=== PATIENT | female | born 1945 | race Caucasian/White ===

== ENCOUNTER 2019-12-05 07:31 | Outpatient (CLI) | payer MEDICARE, OTHER, MEDICAID, SELFPAY | END 2019-12-05 07:32 | disposition home or self-care (01) | LOC: RAD 07:33 | PROVIDERS: Visit Provider Internal Medicine Critical Care Medicine | DX: J45.909 Unspecified asthma, uncomplicated (principal) | CPT/HCPCS: 94010; 94726; 94729 ==

== ENCOUNTER 2019-12-16 14:51 | Emergency (ER) | payer MEDICARE, OTHER, MEDICAID, SELFPAY ==
[2019-12-16 14:51] VITALS: BP 135/62
[2019-12-16 14:56] VITALS: PULSE 74; RESP 18; TEMP 36.6; O2SAT 95; BMI 37.2
--- NOTE | 2019-12-16 15:05 | XR_ITS ---
WS: [id number] Portable AP upright chest, 12/16/2019 Clinical Data: cp Comparison: Portable chest, 09/28/2018. Findings: No nodules, masses or effusions are seen. The heart is enlarged. The pulmonary vascularity is not increased. No pneumonia or pneumothorax is seen. The aortic arch and descending aorta show tor tuosity. There is a dextroscoliosis. Monitor leads are on the chest wall. XR/XR chest 1V portable [id number] Impression: Cardiomegaly and atherosclerosis.
--- NOTE | 2019-12-16 15:05 | ECG_ITS ---
Measurements Intervals [place] Rate: 60 P: LA: 0 QRS: 58 QRSD: 98 T: 16 QT: 423 QTc: 424 ATRIAL FIBRILLATION WITH ABERRANT CONDUCTION OR VENTRICULAR PREMATURE COMPLEXES MODERATE ST DEPRESSION [0.05+ mV ST DEPRESSION] Compared to ECG 09/28/2018 15:52:47 Ventricular premature complex(es) now present Aberrant conduction of supraventricular beat(s) now present ST (T wave) deviation still present Electronically Signed On 12-16-2019 15:56:08 BARREL LEVELER by Ayaan Herron M.D. [id number]
[2019-12-16 15:19] LABS: Basophils % 0.5 %; Eosinophils # 0.1 10^3/uL (0.0-0.8); Eosinophils % 1.7 %; Hematocrit 43.1 % (37.0-47.0); Hemoglobin 13.9 g/dL (11.5-15.3); Lymphocytes % 36.1 %; Mean Corpuscular HGB Conc 32.3 g/dL (30.0-36.0); Mean Corpuscular Hemoglobin 28.6 pg (28.0-34.0); Mean Corpuscular Volume 88.7 fL (81-99); Mean Platelet Volume 10.3 fL (7.4-10.4); Monocytes # 0.6 10^3/uL (0.2-0.9); Monocytes % 6.9 %; Neutrophils # 4.6 10^3/uL (1.8-7.7); Neutrophils % 54.6 %; Nucleated Red Blood Cells % 0 %; Platelet Count 193 10^3/cmm (130-400); Red Blood Count 4.86 10^6/uL (4.1-5.3); Red Cell Distribution Width 13.6 % (12.1-15.1); White Blood Count 8.3 10^3/uL (4.0-10.0)
--- NOTE | 2019-12-16 15:19 | ED_ITS ---
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) Timing of current episode: constant Prior episodes: Yes Onset: during rest Pain location: substernal Pain radiation: none Severity: mild Quality: sharp Relieving factors: nothing Exacerbating factors: nothing Associated symptoms: Reports other (flushed in face); Deny abdominal pain, dyspnea, fever(s), nausea or vomiting Treatment prior to arrival: none Review of Systems Const: Denies: fever, chills, body aches or change in appetite Eyes: Denies: blurry vision or eye discomfort ENMT: Denies: throat pain or dental pain Card: Reports: chest pain Resp: Denies: shortness of breath GI: Denies: abdominal pain, nausea, vomiting or diarrhea : Denies: painful urination Musc: Denies: neck pain or back pain Skin/Breast: Denies: rash Neuro: Denies: headache Psych: Denies: depression Sarkis/Lymph: Denies: easy bruising All/Imm: Denies: hives PFSH ED PFSH: Statuses (acute, chronic, etc) shown below reflect problem list status as previously entered and may not be historically accurate Medical History (Updated 12/16/19 @ 20:40 by Win Campbell DO) CAD (coronary artery disease) (Acute) DVT (deep venous thrombosis) (Acute) Family History (Updated 12/16/19 @ 16:04 by Dianne Salmeron MD) Other CAD (coronary artery disease) Social History (Updated 12/16/19 @ 16:04 by Dianne Salmeron MD) Smoking and tobacco status: never smoked Alcohol intake: never Physical Exam Const: COMMON NORMALS: no apparent distress, oriented x3 and healthy appearing HENMT: COMMON NORMALS: normocephalic and head/scalp atraumatic HEAD & SCALP: normocephalic and atraumatic Eye: COMMON NORMALS: PERRL and EOMs intact bilaterally PUPIL: Yes PERRL Neck/C-Spine: COMMON NORMALS: full ROM and supple Chest: COMMONS NORMALS: inspection of chest normal and palpation of chest normal Resp: COMMON NORMALS: normal respiratory effort, no retractions, no use of accessory muscles and clear to auscultation bilaterally AUSCULTATION: clear to auscultation bilaterally Cardio: COMMON NORMALS: regular rate, regular rhythm and no murmurs RATE: regular rate RHYTHM: regular rhythm GI: COMMON NORMALS: normal to inspection, nondistended, normoactive bowel sounds, soft to palpation, non-tender and no masses PALPATION: Yes soft Extremity: COMMON NORMALS: normal to inspection and full ROM Neuro: COMMON NORMALS: oriented x3, moves all extremities and no focal motor deficits Psych: COMMON NORMALS: mental status grossly normal, thought process normal and cooperative THOUGHT PROCESS: normal thought process Skin: COMMON NORMALS: no rashes or lesions noted and no wounds GENERAL SKIN EXAM: no rashes or lesions noted Course Vital Signs: Vital signs: Vital Signs Temperature 97.8 F 12/16/19 14:56 Pulse Rate 63 12/16/19 21:53 Respiratory Rate 17 12/16/19 21:53 Blood Pressure 160/59 12/16/19 21:53 Pulse Oximetry 94 12/16/19 21:53 MDM - Chest Pain MDM Narrative: Medical decision making narrative: Patient presents here with chest pain that is atypical in nature. She has been pain-free here and is well- appearing. First troponin is 21 and will check a 2-hour troponin. If it is normal she is likely stable for discharge. She has no signs of pulmonary embolism. Patient's care turned over to Dr. Campbell at this time. Lab Data: Labs: Lab Results 12/16/19 12/16/19 12/16/19 Range/Units 15:11 15:11 15:11 WBC 8.3 (4.0-10.0) 10^3/ uL RBC 4.86 (4.1-5.3) 10^6/u L Hgb 13.9 (11.5-15.3) g/dL Hct 43.1 (37.0-47.0) % MCV 88.7 (81-99) fL MCH 28.6 (28.0-34.0) pg MCHC 32.3 (30.0-36.0) g/dL RDW 13.6 (12.1-15.1) % Plt Count 193 (130-400) 10^3/c mm MPV 10.3 (7.4-10.4) fL Neut % (Auto) 54.6 % Lymph % (Auto) 36.1 % [place] % (Auto) 6.9 % Eos % (Auto) 1.7 % Baso % (Auto) 0.5 % Neut # (Auto) 4.6 (1.8-7.7) 10^3/u L Lymph # (Auto) 3.0 (0.8-4.8) 10^3/u L [place] # (Auto) 0.6 (0.2-0.9) 10^3/u L Eos # (Auto) 0.1 (0.0-0.8) 10^3/u L Baso # (Auto) 0.0 (0.0-0.1) 10^3/u L Nucleated RBC % (a uto) 0 % Nucleated RBCs # 0.0 /100WBC Sodium 143 (136-145) mmol/L Potassium 3.8 (3.5-5.1) mmol/L Chloride 101 (98-107) mmol/L Carbon Dioxide 27 (22-29) mmol/L Anion Gap 19.8 H (5-19) BUN 20 (8-23) mg/dL Creatinine 1.4 H (0.5-0.9) mg/dL Glucose 124 H (74-106) mg/dL Calcium 10.0 (8.5-10.5) mg/dL Total Bilirubin 0.5 (0.15-1.2) mg/dL AST 22 (0-32) U/L ALT 15 (0-33) U/L Alkaline Phosphata se 68 (35-105) IU/L Troponin T Baselin e 21 H (0-10) ng/mL Troponin T 120 [address] [place] (0-10) ng/mL Delta Troponin T (0-10) ABS# Total Protein 7.1 (6.6-8.7) g/dL Albumin 4.5 (3.5-5.2) g/dL Globulin 2.4 (1.3-4.6) g/dL 12/16/19 Range/Units 17:53 WBC (4.0-10.0) 10^3/ uL RBC (4.1-5.3) 10^6/u L Hgb (11.5-15.3) g/dL Hct (37.0-47.0) % MCV (81-99) fL MCH (28.0-34.0) pg MCHC (30.0-36.0) g/dL RDW (12.1-15.1) % Plt Count (130-400) 10^3/c mm MPV (7.4-10.4) fL Neut % (Auto) % Lymph % (Auto) % [place] % (Auto) % Eos % (Auto) % Baso % (Auto) % Neut # (Auto) (1.8-7.7) 10^3/u L Lymph # (Auto) (0.8-4.8) 10^3/u L [place] # (Auto) (0.2-0.9) 10^3/u L Eos # (Auto) (0.0-0.8) 10^3/u L Baso # (Auto) (0.0-0.1) 10^3/u L Nucleated RBC % (a uto) % Nucleated RBCs # /100WBC Sodium (136-145) mmol/L Potassium (3.5-5.1) mmol/L Chloride (98-107) mmol/L Carbon Dioxide (22-29) mmol/L Anion Gap (5-19) BUN (8-23) mg/dL Creatinine (0.5-0.9) mg/dL Glucose (74-106) mg/dL Calcium (8.5-10.5) mg/dL Total Bilirubin (0.15-1.2) mg/dL AST (0-32) U/L ALT (0-33) U/L Alkaline Phosphata se (35-105) IU/L Troponin T Baselin e (0-10) ng/mL Troponin T [address] [place] 21.94 H (0-10) ng/mL Delta Troponin T 0.94 (0-10) ABS# Total Protein (6.6-8.7) g/dL Albumin (3.5-5.2) g/dL Globulin (1.3-4.6) g/dL Imaging Data^: CXR: Radiologist's impression: Signed Patient: Lelia Mcguire I Unit #: [id number] : 1945 Age/Sex: 74 / F ADM Date: 12/16/19 Loc: ER Room/Bed: Attending Dr: Ordering Provider/Ordering MD: Dianne Salmeron MD Date of Service: 12/16/19 Procedure(s): XR chest 1V portable [id number] Accession Number(s): [id number] Report Number: [id number] WS: [id number] Portable AP upright chest, 12/16/2019 Clinical Data: cp Comparison: Portable chest, 09/28/2018. Findings: No nodules, masses or effusions are seen. The heart is enlarged. The pulmonary vascularity is not increased. No pneumonia or pneumothorax is seen. The aortic arch and descending aorta show tortuosity. There is a dextroscoliosis. Monitor leads are on the chest wall. EKG Data^: EKG 1: Attestation: I personally reviewed and interpreted this EKG as follows: EKG interpretation date: 12/16/19 EKG interpretation time: 15:05 Interpretation: afib hr [address] or t wave abnormality EKG 2: Attestation: I personally reviewed and interpreted this EKG as follows: EKG interpretation date: 12/16/19 EKG interpretation time: 16:57 Interpretation: afib hr [address] or t wave abnormalities qrs 90 qtc 428 Discharge Plan Discharge Patient Disposition: Home, Self-Care Clinical Impression: Chest pain Qualifiers: Chest pain type: unspecified Qualified Code(s): R07.9 - Chest pain, unspecified Condition: Stable Prescriptions: No Action potassium chloride 10 mEq tablet extended release 20 meq PO DAILY RF: 0 aspirin 81 mg tablet,delayed release (DR/EC) 81 mg PO DAILY RF: 0 furosemide 20 mg tablet 20 mg PO DAILY RF: 0 ergocalciferol (vitamin D2) 1,250 mcg (50,000 unit) capsule 50,000 unit PO Q7D RF: 0 fluticasone propionate 50 mcg/actuation spray,suspension 1 spray INTRANASAL BID RF: 0 lisinopril 2.5 mg tablet 2.5 mg PO DAILY RF: 0 Oyster Shell Calcium-Vit D3 500 mg(1,250mg) -200 unit tablet 3 tab PO DAILY RF: 0 Symbicort 80-4.5 mcg/actuation HFA aerosol inhaler 2 puff INHALATION BID RF: 0 Xarelto 20 mg tablet 20 mg PO DAILY RF: 0 Discharge Orders: Discharge Order (Routine); Ordered 12/16/19 Ordered By: Win Campbell Referrals: Gato Hernandez [Family Provider] - 4-7 days Discharge Diet: Advance as tolerated Discharge Activity: Resume usual activity and Limit activity as instructed Patient Instructions: Chest Pain (ED) Activity Restrictions/Additional Instructions: Return for repeated episodes or worsening chest pain despite treatment, cough, fever, other concerning symptoms. Discharge Date/Time: 12/16/19 22:02 Coding Level of Care Code ED Radio Control Crane Operator for Chg Fwd Exam Problem Focused Documented by User: Win Campbell DO 12/17/19 01:13 HPI - Chest Pain General: Chief Complaint: Chest Pain Stated Complaint: cp Time Seen by Provider: 12/16/19 15:05 PFSH ED PFSH: Statuses (acute, chronic, etc) shown below reflect problem list status as previously entered and may not be historically accurate Medical History (Updated 12/16/19 @ 20:40 by Win Campbell DO) CAD (coronary artery disease) (Acute) DVT (deep venous thrombosis) (Acute) Family History (Updated 12/16/19 @ 16:04 by Dianne Salmeron MD) Other CAD (coronary artery disease) Social History (Updated 12/16/19 @ 16:04 by Dianne Salmeron MD) Smoking and tobacco status: never smoked Alcohol intake: never Course ED course: 74-year-old lady checked out to me by Dr. Salmeron. She had atypical chest pain, that is essentially resolved. She had no ST changes on her EKGs. She did not change her troponin at 2 hours. She will be allowed home. Vital Signs: Vital signs: Vital Signs Temperature 97.8 F 12/16/19 14:56 Pulse Rate 63 12/16/19 21:53 Respiratory Rate 17 12/16/19 21:53 Blood Pressure 160/59 12/16/19 21:53 Pulse Oximetry 94 12/16/19 21:53 MDM - Chest Pain Lab Data: Labs: Lab Results 12/16/19 12/16/19 12/16/19 Range/Units 15:11 15:11 15:11 WBC 8.3 (4.0-10.0) 10^3/ uL RBC 4.86 (4.1-5.3) 10^6/u L Hgb 13.9 (11.5-15.3) g/dL Hct 43.1 (37.0-47.0) % MCV 88.7 (81-99) fL MCH 28.6 (28.0-34.0) pg MCHC 32.3 (30.0-36.0) g/dL RDW 13.6 (12.1-15.1) % Plt Count 193 (130-400) 10^3/c mm MPV 10.3 (7.4-10.4) fL Neut % (Auto) 54.6 % Lymph % (Auto) 36.1 % [place] % (Auto) 6.9 % Eos % (Auto) 1.7 % Baso % (Auto) 0.5 % Neut # (Auto) 4.6 (1.8-7.7) 10^3/u L Lymph # (Auto) 3.0 (0.8-4.8) 10^3/u L [place] # (Auto) 0.6 (0.2-0.9) 10^3/u L Eos # (Auto) 0.1 (0.0-0.8) 10^3/u L Baso # (Auto) 0.0 (0.0-0.1) 10^3/u L Nucleated RBC % (a uto) 0 % Nucleated RBCs # 0.0 /100WBC Sodium 143 (136-145) mmol/L Potassium 3.8 (3.5-5.1) mmol/L Chloride 101 (98-107) mmol/L Carbon Dioxide 27 (22-29) mmol/L Anion Gap 19.8 H (5-19) BUN 20 (8-23) mg/dL Creatinine 1.4 H (0.5-0.9) mg/dL Glucose 124 H (74-106) mg/dL Calcium 10.0 (8.5-10.5) mg/dL Total Bilirubin 0.5 (0.15-1.2) mg/dL AST 22 (0-32) U/L ALT 15 (0-33) U/L Alkaline Phosphata se 68 (35-105) IU/L Troponin T Baselin e 21 H (0-10) ng/mL Troponin T 120 [address] [place] (0-10) ng/mL Delta Troponin T (0-10) ABS# Total Protein 7.1 (6.6-8.7) g/dL Albumin 4.5 (3.5-5.2) g/dL Globulin 2.4 (1.3-4.6) g/dL 12/16/19 Range/Units 17:53 WBC (4.0-10.0) 10^3/ uL RBC (4.1-5.3) 10^6/u L Hgb (11.5-15.3) g/dL Hct (37.0-47.0) % MCV (81-99) fL MCH (28.0-34.0) pg MCHC (30.0-36.0) g/dL RDW (12.1-15.1) % Plt Count (130-400) 10^3/c mm MPV (7.4-10.4) fL Neut % (Auto) % Lymph % (Auto) % [place] % (Auto) % Eos % (Auto) % Baso % (Auto) % Neut # (Auto) (1.8-7.7) 10^3/u L Lymph # (Auto) (0.8-4.8) 10^3/u L [place] # (Auto) (0.2-0.9) 10^3/u L Eos # (Auto) (0.0-0.8) 10^3/u L Baso # (Auto) (0.0-0.1) 10^3/u L Nucleated RBC % (a uto) % Nucleated RBCs # /100WBC Sodium (136-145) mmol/L Potassium (3.5-5.1) mmol/L Chloride (98-107) mmol/L Carbon Dioxide (22-29) mmol/L Anion Gap (5-19) BUN (8-23) mg/dL Creatinine (0.5-0.9) mg/dL Glucose (74-106) mg/dL Calcium (8.5-10.5) mg/dL Total Bilirubin (0.15-1.2) mg/dL AST (0-32) U/L ALT (0-33) U/L Alkaline Phosphata se (35-105) IU/L Troponin T Baselin e (0-10) ng/mL Troponin T [address] [place] 21.94 H (0-10) ng/mL Delta Troponin T 0.94 (0-10) ABS# Total Protein (6.6-8.7) g/dL Albumin (3.5-5.2) g/dL Globulin (1.3-4.6) g/dL Discharge Plan Discharge Patient Disposition: Home, Self-Care Clinical Impression: Chest pain Qualifiers: Chest pain type: unspecified Qualified Code(s): R07.9 - Chest pain, unspecified Condition: Stable Prescriptions: No Action potassium chloride 10 mEq tablet extended release 20 meq PO DAILY RF: 0 aspirin 81 mg tablet,delayed release (DR/EC) 81 mg PO DAILY RF: 0 furosemide 20 mg tablet 20 mg PO DAILY RF: 0 ergocalciferol (vitamin D2) 1,250 mcg (50,000 unit) capsule 50,000 unit PO Q7D RF: 0 fluticasone propionate 50 mcg/actuation spray,suspension 1 spray INTRANASAL BID RF: 0 lisinopril 2.5 mg tablet 2.5 mg PO DAILY RF: 0 Oyster Shell Calcium-Vit D3 500 mg(1,250mg) -200 unit tablet 3 tab PO DAILY RF: 0 Symbicort 80-4.5 mcg/actuation HFA aerosol inhaler 2 puff INHALATION BID RF: 0 Xarelto 20 mg tablet 20 mg PO DAILY RF: 0 Discharge Orders: Discharge Order (Routine); Ordered 12/16/19 Ordered By: Win Campbell Referrals: Gtao Hernandez [Family Provider] - 4-7 days Discharge Diet: Advance as tolerated Discharge Activity: Resume usual activity and Limit activity as instructed Patient Instructions: Chest Pain (ED) Activity Restrictions/Additional Instructions: Return for repeated episodes or worsening chest pain despite treatment, cough, fever, other concerning symptoms. Discharge Date/Time: 12/16/19 22:02 Coding Level of Care Code ED Radio Control Crane Operator for Chg Fwd Exam Problem Focused The documentation recorded by the Del heath Bridget Annette, accurately reflects the service I personally performed and the decisions made by me, Dianne Salmeron MD Dec 16, 2019 14:51
[2019-12-16 15:44] LABS: Troponin(5th) Baseline 21 ng/mL (0-10)
[2019-12-16] MEDS: aspirin 81 mg Chew Tablet 324 MG PO (15:51)
[2019-12-16 16:03] LABS: Alanine Aminotransferase 15 U/L (0-33); Alkaline Phosphatase 68 IU/L (35-105); Aspartate Amino Transferase 22 U/L (0-32); Blood Urea Nitrogen 20 mg/dL (8-23); Carbon Dioxide 27 mmol/L (22-29); Glucose 124 mg/dL (74-106); Total Bilirubin 0.5 mg/dL (0.15-1.2); Total Protein 7.1 g/dL (6.6-8.7)
[2019-12-16 16:23] LABS: Albumin Level 4.5 g/dL (3.5-5.2); Anion Gap 19.8 (5-19); Chloride 101 mmol/L (98-107); Globulin 2.4 g/dL (1.3-4.6); Potassium 3.8 mmol/L (3.5-5.1); Sodium 143 mmol/L (136-145)
[2019-12-16 18:23] LABS: Troponin 5 2HR 21.94 ng/mL (0-10); Troponin 5 2HR Delta 0.94 ABS# (0-10)
--- NOTE | 2019-12-16 19:04 | PC.NURSE ---
REPORT RECEIVED FROM GABRIELLA SPENCER AND CARE TRANSFERRED TO GABRIELLA VALDEZ
[2019-12-16 19:21] VITALS: BP 150/56; PULSE 73; RESP 18; O2SAT 95
[2019-12-16 19:24] VITALS: PULSE 68; RESP 18; O2SAT 94
[2019-12-16 20:40] VITALS: BP 114/54; PULSE 66; RESP 16; O2SAT 95
--- NOTE | 2019-12-16 20:43 | PC.NURSE ---
PATIENT UPDATED ON THEIR LAB RESULT STATUS BY NURSE
--- NOTE | 2019-12-16 21:05 | ECG_ITS ---
Measurements Intervals [place] Rate: 52 P: WI: 0 QRS: 58 QRSD: 90 T: 29 QT: 448 QTc: 418 ATRIAL FIBRILLATION WITH SLOW VENTRICULAR RESPONSE MODERATE ST DEPRESSION [0.05+ mV ST DEPRESSION] Compared to ECG 12/16/2019 15:05:34 Ventricular premature complex(es) no longer present Aberrant conduction of supraventricular beat(s) no longer present ST (T wave) deviation still present Electronically Signed On 12-17-2019 16:26:10 PULP MILL OPERATOR by Brayden Nguyen M.D. [id number]
[2019-12-16 21:53] VITALS: BP 160/59; PULSE 63; RESP 17; O2SAT 94
== END 2019-12-16 22:02 | disposition home or self-care (01) ==
PROVIDERS: Emergency Medicine; Emergency Provider Emergency Medicine
DX: R07.9 Chest pain, unspecified (principal); Z79.82 Long term (current) use of aspirin; I25.10 Atherosclerotic heart disease of native coronary artery without angina pectoris
CPT/HCPCS: 36415; 71045; 80053; 84484; 85025; 93005; 99283; 99284

== ENCOUNTER 2019-12-27 12:56 | Outpatient (CLI) | payer MEDICARE, OTHER, MEDICAID, SELFPAY ==
[2019-12-27 13:21] VITALS: BP 122/66; PULSE 72; RESP 18; TEMP 36.7; O2SAT 98
[2019-12-27] MEDS: denosumab 60 mg SDV SUBCUT (13:39)
[2019-12-27 14:01] VITALS: BP 119/69; PULSE 56; RESP 18; TEMP 36.8
== END 2019-12-27 12:57 | disposition home or self-care (01) ==
LOC: RHEOACUTE 12:58
DX: M81.0 Age-related osteoporosis without current pathological fracture (principal)
CPT/HCPCS: 96372; J0897

== ENCOUNTER 2020-01-18 14:16 | Outpatient (CLI) | payer MEDICARE, OTHER, MEDICAID, SELFPAY ==
--- NOTE | 2020-01-18 14:43 | XR_ITS ---
WS: [id number] SCREENING DEXA SCAN [place] CLINICAL INFORMATION: AGE RELATED OSTEOPOROSIS WITH CURRENT PATHOLOGICAL FRACTURE COMPARISON: December 29, 2017 FINDINGS: The L1-L4 bone mineral density measures 1.324 g/cm2. This corresponds to a T score score of 1.2 and Z score of 1.9. Left femoral neck bone mineral density measures 0.855 g/cm2. This corresponds to a T score of -1.2 an d Z score of -0.3. Right femoral neck bone mineral density measures 0.951 g/cm2. This corresponds to a T score -0.5of an d Z score of 0.5. Mean femoral neck bone mineral density measures 0.903 g/cm2. This corresponds to a T score of -0.8 an d Z score of 0.1. 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 Patient's FRAX calculated 10 year probability for major osteoporotic fracture i s 8.6 % and osteoporotic hip fracture is 1.0%. Since 2018, bone mineral density in the lumbar spine has increased 5.2% and inc reased 4.5% in the femoral necks.
== END 2020-01-18 14:17 | disposition home or self-care (01) ==
LOC: RADWPI 14:18
DX: M81.0 Age-related osteoporosis without current pathological fracture (principal)
CPT/HCPCS: 77080

== ENCOUNTER 2020-01-18 15:23 | Outpatient (CLI) | payer MEDICARE, OTHER, MEDICAID, SELFPAY ==
--- NOTE | 2020-01-18 | USCV_ITS ---
Lelia Mcguire Age: 74 Gender: F : 1945 Exam Date: 01/18/2020 15:41 Ordering Phys: Ayaan Herron MD ([email or web address]) Technologist: Ritchie Barry Exam Location: [facility] [place] Indication: AI BP: / HR: 84 Rhythm: Sinus Technical Quality: Fair MEASUREMENTS (Male / Female) Normal Values 2D ECHO LV Diastolic Diameter PLAX 5.0 cm 4.2 - 5.9 / 3.9 - 5.3 cm LV Systolic Diameter PLAX 2.4 cm IVS Diastolic Thickness 1.0 cm 0.6 - 1.0 / 0.6 - 0.9 cm IVS Systolic Thickness 1.5 cm LVPW Diastolic Thickness 1.2 cm 0.6 - 1.0 / 0.6 - 0.9 cm LVPW Systolic Thickness 1.5 cm LVOT Diameter 2.0 cm LV Ejection Fraction 2D Teich 82.5 % LV Ejection Fraction MOD 2C 71.8 % LV Ejection Fraction 2C AL 70.8 % LA Diameter 5.1 cm LA Width 4.8 cm LA Height 6.5 cm RA Width 4.1 cm RA Height 5.5 cm Aorta at Sinotubular Diameter 3.4 cm M-MODE LV Diastolic Diameter MM 4.9 cm 4.2 - 5.9 / 3.9 - 5.3 cm LV Systolic Diameter MM 2.2 cm LV Ejection Fraction MM Teich 85.6 % IVS Diastolic Thickness MM 1.1 cm 0.6 - 1.0 / 0.6 - 0.9 cm IVS Systolic Thickness MM 2.0 cm LVPW Diastolic Thickness MM 1.3 cm 0.6 - 1.0 / 0.6 - 0.9 cm LVPW Systolic Thickness MM 1.7 cm RV Diastolic Diameter MM 2.6 cm Aortic Annulus Diameter 2.7 cm LA Ao Ratio MM 1.9 MV E Point Septal Separation 0.8 cm DOPPLER LVOT Peak Velocity 282.0 cm/s MV Area PHT 5.0 cm squared Mitral E to A Ratio 1.8 MV E' Velocity 18.0 cm/s Mitral E to MV E' Ratio 7.2 Mitral E to LV E' Lateral Ratio 6.6 Mitral E to LV E' Septal Ratio 7.8 TR Peak Velocity 379.0 cm/s TR Peak Gradient 57.4 mmHg TV Peak E Velocity 98.0 cm/s Right Atrial Pressure 3.0 mmHg Pulmonary Artery Systolic Pressu 60.5 mmHg FINDINGS Left Ventricle Normal left ventricular size, systolic function and wall thickness, with no regional wall motion abnormalities. Grade I/IV diastolic dysfunction (abnormal relaxation filling pattern), normal to mildly elevated filling pressures. Left ventricular ejection fraction is estimated at 65 %. Right Ventricle Normal right ventricular size and systolic function. Severe pulmonary hypertension, RVSP 60.5 mmHg. Right Atrium Moderately increased right atrial size. Left Atrium Severely increased left atrial size. Mitral Valve Structurally normal mitral valve. Mild mitral valve regurgitation. Aortic Valve Structurally normal trileaflet aortic valve. No aortic valve stenosis. There is 2-3+ or moderate to moderately severe aortic insufficiency. Tricuspid Valve Structurally normal tricuspid valve. [id number]-fl-pusdtonk tricuspid valve regurgitation. Pulmonic Valve Pulmonic valve not well visualized. Pericardium Normal pericardium without effusion. Aorta Normal ascending aorta dimension. CONCLUSIONS Normal left ventricular size, systolic function and wall thickness, with no regional wall motion abnormalities. Grade I/IV diastolic dysfunction (abnormal relaxation filling pattern), normal to mildly elevated filling pressures. Left ventricular ejection fraction is estimated at 65 %. Normal right ventricular size and systolic function. Severe pulmonary hypertension, RVSP 60.5 mmHg. Moderately increased right atrial size. Severely increased left atrial size. Structurally normal mitral valve. Mild mitral valve regurgitation. Structurally normal trileaflet aortic valve. No aortic valve stenosis. There is 2-3+ or moderate to moderately severe aortic insufficiency. There are no prior echocardiogram studies to compare. Dr. Ayaan Herron MD (Electronically Signed) Final Date: 18 January 2020 16:47 S
== END 2020-01-18 15:24 | disposition home or self-care (01) ==
LOC: US 15:24
PROVIDERS: Visit Provider Internal Medicine Cardiovascular Disease
DX: I08.3 Combined rheumatic disorders of mitral, aortic and tricuspid valves (principal); I27.20 Pulmonary hypertension, unspecified
CPT/HCPCS: 93306

== ENCOUNTER 2020-06-19 15:00 | Outpatient (CLI) | payer MEDICARE, OTHER, MEDICAID, SELFPAY ==
--- NOTE | 2020-06-19 15:05 | MM_ITS ---
WS: [id number] SCREENING DIGITAL MAMMOGRAM WITH CAD HISTORY: SCREENING COMPARISON: 05/18/2017 and 05/09/2016 Bilateral CC and MLO views submitted. Computer aided detection analyzed. Breast composition: There are scattered areas of fibroglandular density. No suspicious masses, microc alcifications or architectural distortion. Benign calcifications anterior LEFT breast. MM/[place] [id number] IMPRESSION: BI-RADS: 2-Benign FOLLOW UP: 1 Year Follow-up
== END 2020-06-19 15:01 | disposition home or self-care (01) ==
LOC: RADSHAW 15:04
PROVIDERS: PCP Nurse Practitioner Family; Visit Provider Nurse Practitioner Family
DX: Z12.31 Encounter for screening mammogram for malignant neoplasm of breast (principal)
CPT/HCPCS: 77067

== ENCOUNTER 2020-08-21 07:01 | Outpatient (CLI) | payer MEDICARE, OTHER, MEDICAID, SELFPAY ==
--- NOTE | 2020-08-21 07:08 | USCV_ITS ---
Lelia Mcguire Age: 74 Gender: F : 1945 Exam Date: 08/21/2020 07:10 Ordering Phys: Nhan Perrin M.D ([email or web address]) Technologist: Pearl Huerta Exam Location: [facility] [place] Indication: AVS BP: 155 / 64 HR: 72 Rhythm: Sinus Technical Quality: Adequate MEASUREMENTS (Male / Female) Normal Values 2D ECHO LV Diastolic Diameter PLAX 4.9 cm 4.2 - 5.9 / 3.9 - 5.3 cm LV Systolic Diameter PLAX 2.5 cm LV Chamber Size 4.0 cm IVS Diastolic Thickness 1.5 cm 0.6 - 1.0 / 0.6 - 0.9 cm IVS Systolic Thickness 2.1 cm LVPW Diastolic Thickness 1.7 cm 0.6 - 1.0 / 0.6 - 0.9 cm LVPW Systolic Thickness 2.1 cm RV Chamber Size 2.3 cm LVOT Diameter 2.1 cm LV Ejection Fraction 2D Teich 80.8 % LV Ejection Fraction MOD 2C 65.9 % LV Ejection Fraction 2C AL 65.6 % LA Diameter 3.8 cm LA Width 4.7 cm LA Height 5.9 cm RA Width 3.3 cm RA Height 4.9 cm Aorta at Sinotubular Diameter 2.3 cm M-MODE LV Diastolic Diameter MM 5.8 cm 4.2 - 5.9 / 3.9 - 5.3 cm LV Systolic Diameter MM 3.0 cm LV Ejection Fraction MM Teich 79.2 % IVS Diastolic Thickness MM 0.8 cm 0.6 - 1.0 / 0.6 - 0.9 cm IVS Systolic Thickness MM 1.4 cm LVPW Diastolic Thickness MM 0.9 cm 0.6 - 1.0 / 0.6 - 0.9 cm LVPW Systolic Thickness MM 1.3 cm Aortic Annulus Diameter 2.2 cm LA Ao Ratio MM 2.1 MV E Point Septal Separation 0.3 cm DOPPLER AV Peak Velocity 307.0 cm/s LVOT Peak Velocity 154.0 cm/s AV Area Cont Eq vti 1.8 cm squared AV Area Cont Eq pk 1.7 cm squared MV Area PHT 4.9 cm squared Mitral E to A Ratio 3.8 MV E' Velocity 70.5 cm/s Mitral E to MV E' Ratio 7.0 Mitral E to LV E' Lateral Ratio 7.1 Mitral E to LV E' Septal Ratio 6.9 TR Peak Velocity 275.5 cm/s TR Peak Gradient 30.4 mmHg TV Peak E Velocity 51.0 cm/s Right Atrial Pressure 3.0 mmHg Pulmonary Artery Systolic Pressu 33.4 mmHg PV Peak Velocity 92.0 cm/s RV Acceleration Time 0.1 s RV Ejection Time 0.4 s RV AcT/ET 0.3 FINDINGS Left Ventricle Normal left ventricular size and systolic function. No regional wall motion abnormalities. LV systolic function is 60 to 65%. Mild to moderate left ventricular hypertrophy is noted.. Diastolic function is indeterminate because of atrial fibrillation. Right Ventricle The right ventricle is normal in size and function. Right Atrium The right atrium is enlarged Left Atrium The left atrium is severely enlarged. Mitral Valve Structurally normal mitral valve without significant stenosis or prolapse. There is mild mitral regurgitation. Aortic Valve Structurally normal aortic valve. There is mild aortic stenosis with aortic valve area of 1.87 cm squared with mean gradient across the valve of 14.8 mmHg according to continuity equation. Moderate aortic regurgitation is noted. Tricuspid Valve Structurally normal tricuspid valve without significant stenosis. Mild to moderate tricuspid regurgitation is noted. RVSP is 5 to 50 mmHg. Moderate pulmonary hypertension is noted. Pulmonic Valve Structurally normal pulmonic valve without significant stenosis. There is trace pulmonic regurgitation. Pericardium Normal pericardium without effusion. Aorta Normal ascending aorta dimension. CONCLUSIONS LV systolic function is normal with EF of 60 to 65%. Diastolic function cannot be assessed because of atrial fibrillation. Moderate aortic regurgitation is present. Mild aortic stenosis is noted. Moderate pulmonary hypertension is present. Compared to prior echocardiogram from 01/18/2020, mild aortic stenosis is the only new finding. Otherwise unchanged. Nhan Perrin MD (Electronically Signed) Final Date: 25 August 2020 17:07 S
== END 2020-08-21 07:02 | disposition home or self-care (01) ==
LOC: US 07:02
PROVIDERS: Visit Provider Internal Medicine
DX: I35.0 Nonrheumatic aortic (valve) stenosis (principal); I27.20 Pulmonary hypertension, unspecified
CPT/HCPCS: 93306

== ENCOUNTER 2021-02-12 20:00 | Emergency (ER) | payer MEDICARE, OTHER, MEDICAID, SELFPAY ==
[2021-02-12 20:17] VITALS: BP 194/67; PULSE 66; RESP 16; TEMP 36.1; O2SAT 97; BMI 36.6
--- NOTE | 2021-02-12 22:18 | CTR_ITS ---
PROCEDURE INFORMATION: Exam: CT Abdomen And Pelvis Without Contrast Exam date and time: 02/12/2021 10:20 PM Age: 75 years old Clinical indication: Abdominal pain; Localized; Left; Prior surgery; Surgery type: Tubal; Patient HX: RT sided abd pain. No contrast due to allergy. TECHNIQUE: Imaging protocol: Computed tomography of the abdomen and pelvis without contrast. Total images: 221 Radiation optimization: All CT scans at this facility use at least one of these dose optimization techniques: automated exposure control; mA and/or kV adjustment per patient size (includes targeted exams where dose is matched to clinical indication); or iterative reconstruction. COMPARISON: CT abdomen pelvis wo con [id number] 12/24/2017 10:22 AM RADIATION DOSE METRICS: Total DLP (mGy-cm): 1698.24 FINDINGS: Lungs: Limited assessment of the lung bases fails to reveal evidence for active cardiopulmonary process. Heart: Cardiomegaly. Coronary artery disease. No visible pericardial effusion. Mediastinal space: Small hiatal hernia. Liver: No visible hepatic mass or cystic structure. Gallbladder and bile ducts: Solitary gallstone measuring approximately 25 mm in diameter. Pancreas: Unremarkable for age. No ductal dilation. Spleen: Spleen unremarkable. Adrenal glands: Adrenal glands unremarkable. Kidneys and ureters: No visible hydronephrosis or perinephric fluid. Stable simple cortical cyst equator left kidney. No follow-up recommended. No visible nephrolithiasis or visible ureterolithiasis. Stomach and bowel: Diverticulosis coli without visible evidence for acute diverticulitis. Nonobstructive bowel pattern. No visible adynamic or reactive ileus. Appendix: The appendix is visualized and appears noninflamed. Intraperitoneal space: No visible evidence of mesenteric lymphadenitis or active mesenteritis/panniculitis. No visible pneumoperitoneum or intraperitoneal ascites. Vasculature: The abdominal aorta is nonaneurysmal. Mild arterial sclerotic disease. Lymph nodes: No current visible evidence of active mesenteric or retroperitoneal lymphadenopathy. Urinary bladder: Bladder unremarkable. Reproductive: Multiple calcified uterine leiomyomata. Bones/joints: No visible active or acute osseous pathology. Advanced facet arthrosis. Degenerative disc disease with vacuum disc phenomenon L4/L5. Spondylosis deformans primarily distal thoracic spine. Osteopenia/osteoporosis. 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 Moderate osteoarthritis left period Soft tissues: Small periumbilical ventral hernia containing fat only. Other findings: Obesity. CT/CT abdomen pelvis wo con [id number] IMPRESSION: 1. Currently no visible evidence for acute abdominal or pelvic pathologic process. 2. Cholelithiasis. 3. Diverticulosis coli without visible evidence for acute diverticulitis. Radiation Dose CTDIVOL = (mGy): DLP = 1698.24 (mGy-cm)
--- NOTE | 2021-02-12 22:18 | ECG_ITS ---
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 Measurements Intervals [place] Rate: 62 P: [place]: QRS: 62 QRSD: 92 T: 25 QT: 431 QTc: 440 Interpretive Statements ATRIAL FIBRILLATION MODERATE ST DEPRESSION [0.05+ mV ST DEPRESSION] Compared to ECG 12/16/2019 16:57:20 No significant changes Electronically Signed On 02-13-2021 19:47:13 CDT by Brayden Nguyen M.D. [id number]
--- NOTE | 2021-02-12 22:18 | XR_ITS ---
WS: [id number] Portable AP upright chest, 02/12/2021 Clinical Data: cp Comparison: Mobile chest, 12/16/2019. Findings: No nodules, masses or effusions are seen. The heart is large. The pulmonary vascularity is not increased. No pneumonia or pneumothorax is seen. The aortic arch and descending aorta show tortuo sity. There is a dextroscoliosis. XR/XR chest 1V portable [id number] Impression: Atherosclerosis and cardiomegaly.
--- NOTE | 2021-02-12 22:21 | W.ED.ABDPA2 ---
HPI - Abdominal Pain General: Chief Complaint: Abdominal Pain Stated Complaint: R SIDED ABD PAIN Time Seen by Provider: 02/12/21 21:32 Source: patient Mode of arrival: ambulatory Limitations: no limitations History of Present Illness: HPI narrative: 75-year-old female states she been having right upper quadrant and epigastric bowel pain since about 3. States been a burning sensation and does radiate to her chest. States pain also radiates into her back. She denies any fever. She has had some nausea with no vomiting. She rates her pain a 7 out of 10 currently. She has had no diarrhea. Denies any shortness of breath. MD elicited complaint: abdominal pain Associated Symptoms: Denies chills, dysuria and fever(s) Review of Systems Const: Denies: fever(s), chills, body aches or change in appetite Eyes: Denies: blurry vision or eye discomfort ENMT: Denies: throat pain or dental pain Card: Denies: chest pain Resp: Denies: dyspnea GI: Reports: abdominal pain : Denies: dysuria Musc: Denies: neck pain or back pain Skin/Breast: Denies: rash Neuro: Denies: headache(s) Psych: Denies: depression [place]/Lymph: Denies: easy bruising All/Imm: Denies: urticaria PFSH ED PFSH: Medical History (Updated 02/13/21 @ 02:07 by Dianne Salmeron MD) Anticoagulation adequate with anticoagulant therapy Xarelto Aortic insufficiency with aortic stenosis CAD (coronary artery disease) COPD (chronic obstructive pulmonary disease) DVT (deep venous thrombosis) Obesity Pulmonary arterial hypertension Sleep apnea Family History Other CAD (coronary artery disease) Social History Smoking and tobacco status: never smoked Second hand smoke exposure: No Smoking risk assessment/counseling performed?: No Alcohol intake: never Desire information about alcohol rehabilitation?: No Counseling given: No Desire information about substance/drug rehabilitation?: No Counseling given: No Lives independently: Yes Household members: none Marital status: / Current occupational status: retired History of recent travel: No Current gender identity: Female Physical Exam Const: COMMON NORMALS: no acute distress, patient oriented x3 and healthy appearing HENMT: COMMON NORMALS: normocephalic and atraumatic HEAD & SCALP: normocephalic and atraumatic Eye: COMMON NORMALS: Equal, round and reactive pupils present and EOMs intact bilaterally PUPIL: Yes Equal, round and reactive pupils present Neck/C-Spine: COMMON NORMALS: full ROM and supple Chest: COMMONS NORMALS: normal inspection of the chest and normal palpation of entire chest wall Resp: COMMON NORMALS: normal respiratory effort, No retractions, No use of accessory muscles and clear to auscultation bilaterally AUSCULTATION: clear to auscultation bilaterally Cardio: COMMON NORMALS: regular rate, regular rhythm and No murmurs present (Cardio) RATE: regular rate RHYTHM: regular rhythm GI: COMMON NORMALS: Normal to inspection, nondistended, normoactive bowel sounds present, Soft to palpation and no masses PALPATION: Yes Soft to palpation and Yes Tenderness to palpation present (GI) Details: RUQ Extremity: COMMON NORMALS: normal to inspection and full ROM Neuro: COMMON NORMALS: patient oriented x3, moves all extremities and no focal motor deficits Psych: COMMON NORMALS: mental status grossly normal, Normal thought process present and cooperative THOUGHT PROCESS: Normal thought process present Skin: COMMON NORMALS: no rashes or lesions noted and no wounds GENERAL SKIN EXAM: no rashes or lesions noted Course Vital Signs: Vital signs: Vital Signs Temperature 96.9 F L 02/12/21 20:17 Pulse Rate 66 02/12/21 20:17 Respiratory Rate 20 H 02/12/21 23:56 Blood Pressure 194/67 02/12/21 20:17 Pulse Oximetry 97 02/12/21 20:17 MDM - Abdominal Pain MDM Narrative: Medical decision making narrative: Patient presents with abdominal pain consistent with likely biliary colic. Patient does have gallstones on CT. No signs of acute cholecystitis. Patient's blood work here is all normal. Patient has no signs of acute coronary syndrome. Patient's been pain-free here and abdominal exam at discharge is benign. She is to follow-up with surgery and is to return if worsening. She understands agrees to plan. Lab Data: Labs: Lab Results 02/12/21 02/12/21 02/12/21 Range/Units 23:27 23:27 23:27 WBC 8.4 (4.0-10.0) 10^3/ uL RBC 4.68 (4.1-5.3) 10^6/u L Hgb 13.8 (11.5-15.3) g/dL Hct 42.2 (37.0-47.0) % MCV 90.2 (81-99) fL MCH 29.5 (28.0-34.0) pg MCHC 32.7 (30.0-36.0) g/dL RDW 14.0 (12.1-15.1) % Plt Count 162 (130-400) 10^3/c mm MPV 10.1 (7.4-10.4) fL Neut % (Auto) 79.3 % Lymph % (Auto) 14.0 % [place] % (Auto) 5.3 % Eos % (Auto) 0.5 % Baso % (Auto) 0.5 % Neut # (Auto) 6.70 (1.8-7.7) 10^3/u L Lymph # (Auto) 1.2 (0.8-4.8) 10^3/u L [place] # (Auto) 0.5 (0.2-0.9) 10^3/u L Eos # (Auto) 0.0 (0.0-0.8) 10^3/u L Baso # (Auto) 0.0 (0.0-0.1) 10^3/u L Nucleated RBC % (a uto) 0 % Nucleated RBCs # 0.0 /100WBC Sodium 136 (136-145) mmol/L Potassium 4.1 (3.5-5.1) mmol/L Chloride 99 (98-107) mmol/L Carbon Dioxide 27 (22-29) mmol/L Anion Gap 14.1 (5-19) BUN 18 (8-23) mg/dL Creatinine 0.7 (0.5-0.9) mg/dL GFR Calculation Not Reportable Glucose 137 H (65-115) mg/dL Calculated Osmolal ity 286 (285-295) mOsm/k g Calcium 9.2 (8.5-10.5) mg/dL Total Bilirubin 1.2 (0.15-1.2) mg/dL AST 326 H (0-32) U/L ALT 179 H (0-33) U/L Alkaline Phosphata se 73 (35-105) IU/L Troponin T Baselin e 16 H (0-10) ng/L Troponin T 120 Min [place] (0-10) ng/L Delta Troponin T (0-10) ABS# Total Protein 6.8 (6.6-8.7) g/dL Albumin 4.0 (3.5-5.2) g/dL Globulin 2.8 (1.3-4.6) g/dL Lipase 19 (13-60) U/L 02/13/ Range/Units 01:34 WBC (4.0-10.0) 10^3/ uL RBC (4.1-5.3) 10^6/u L Hgb (11.5-15.3) g/dL Hct (37.0-47.0) % MCV (81-99) fL MCH (28.0-34.0) pg MCHC (30.0-36.0) g/dL RDW (12.1-15.1) % Plt Count (130-400) 10^3/c mm MPV (7.4-10.4) fL Neut % (Auto) % Lymph % (Auto) % [place] % (Auto) % Eos % (Auto) % Baso % (Auto) % Neut # (Auto) (1.8-7.7) 10^3/u L Lymph # (Auto) (0.8-4.8) 10^3/u L [place] # (Auto) (0.2-0.9) 10^3/u L Eos # (Auto) (0.0-0.8) 10^3/u L Baso # (Auto) (0.0-0.1) 10^3/u L Nucleated RBC % (a uto) % Nucleated RBCs # /100WBC Sodium (136-145) mmol/L Potassium (3.5-5.1) mmol/L Chloride (98-107) mmol/L Carbon Dioxide (22-29) mmol/L Anion Gap (5-19) BUN (8-23) mg/dL Creatinine (0.5-0.9) mg/dL GFR Calculation Glucose (65-115) mg/dL Calculated Osmolal ity (285-295) mOsm/k g Calcium (8.5-10.5) mg/dL Total Bilirubin (0.15-1.2) mg/dL AST (0-32) U/L ALT (0-33) U/L Alkaline Phosphata se (35-105) IU/L Troponin T Baselin e (0-10) ng/L Troponin T 120 Min [place] 14.99 H (0-10) ng/L Delta Troponin T -1.01 L (0-10) ABS# Total Protein (6.6-8.7) g/dL Albumin (3.5-5.2) g/dL Globulin (1.3-4.6) g/dL Lipase (13-60) U/L Imaging Data ^: CXR: Attestation: I personally reviewed and interpreted this imaging study as follows: My impression: No acute abnormality CT Abd/Pel: Radiologist's impression: [id number] [address] [address] Scan Report Signed Patient: Lelia Mcguire I Unit #: [id number] : 1945 Age/Sex: 75 / F ADM Date: 02/12/21 Loc: ER Room/Bed: Attending Dr: Ordering Provider/Ordering MD: Dianne Salmeron MD Date of Service: 02/12/21 Procedure(s): CT abdomen pelvis con [id number] Accession Number(s): [id number] Report Number: [id number] PROCEDURE INFORMATION: Exam: CT Abdomen And Pelvis Without Contrast Exam date and time: 02/12/2021 10:20 PM Age: 75 years old Clinical indication: Abdominal pain; Localized; Left; Prior surgery; Surgery type: Tubal; Patient HX: RT sided abd pain. No contrast due to allergy. TECHNIQUE: Imaging protocol: Computed tomography of the abdomen and pelvis without contrast. Total images: 221 Radiation optimization: All CT scans at this facility use at least one of these dose optimization techniques: automated exposure control; mA and/or kV adjustment per patient size (includes targeted exams where dose is matched to clinical indication); or iterative reconstruction. COMPARISON: CT abdomen pelvis con [id number] 12/24/2017 10:22 AM RADIATION DOSE METRICS: Total DLP (mGy-cm): 1698.24 FINDINGS: Lungs: Limited assessment of the lung bases fails to reveal evidence for active cardiopulmonary process. Heart: Cardiomegaly. Coronary artery disease. No visible pericardial effusion. Mediastinal space: Small hiatal hernia. Liver: No visible hepatic mass or cystic structure. Gallbladder and bile ducts: Solitary gallstone measuring approximately 25 mm in diameter. Pancreas: Unremarkable for age. No ductal dilation. Spleen: Spleen unremarkable. Adrenal glands: Adrenal glands unremarkable. Kidneys and ureters: No visible hydronephrosis or perinephric fluid. Stable simple cortical cyst equator left kidney. No follow-up recommended. No visible nephrolithiasis or visible ureterolithiasis. Stomach and bowel: Diverticulosis coli without visible evidence for acute diverticulitis. Nonobstructive bowel pattern. No visible adynamic or reactive ileus. Appendix: The appendix is visualized and appears noninflamed. Intraperitoneal space: No visible evidence of mesenteric lymphadenitis or active mesenteritis/panniculitis. No visible pneumoperitoneum or intraperitoneal ascites. Vasculature: The abdominal aorta is nonaneurysmal. Mild arterial sclerotic disease. Lymph nodes: No current visible evidence of active mesenteric or retroperitoneal lymphadenopathy. Urinary bladder: Bladder unremarkable. Reproductive: Multiple calcified uterine leiomyomata. Bones/joints: No visible active or acute osseous pathology. Advanced facet arthrosis. Degenerative disc disease with vacuum disc phenomenon L4/L5. Spondylosis deformans primarily distal thoracic spine. Osteopenia/osteoporosis. 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 Moderate osteoarthritis left period Soft tissues: Small periumbilical ventral hernia containing fat only. Other findings: Obesity. CT/CT abdomen pelvis wo con [id number] IMPRESSION: 1. Currently no visible evidence for acute abdominal or pelvic pathologic process. 2. Cholelithiasis. 3. Diverticulosis coli without visible evidence for acute diverticulitis. EKG Data ^: EKG 1: Attestation: I personally reviewed and interpreted this EKG as follows: EKG interpretation date: 02/13/21 EKG interpretation time: 00:14 Interpretation: agib hr [address] or t wave abnormalities qrs 92 qtc 437 Discharge Plan Discharge Patient Disposition: Home Clinical Impression: Abdominal pain Qualifiers: Abdominal location: right upper quadrant Qualified Code(s): R10.11 - Right upper quadrant pain Gallstone Qualifiers: Cholecystitis presence: without cholecystitis Biliary obstruction: without biliary obstruction Qualified Code(s): K80.20 - Calculus of gallbladder without cholecystitis without obstruction Condition: Stable Prescriptions: New hydrocodone-acetaminophen 5-325 mg tablet 1 tab PO Q6H PRN (Reason: pain) Qty: 14 RF: 0 ondansetron 4 mg tablet,disintegrating 4 mg PO Q6H PRN (Reason: nausea and vomiting) Qty: 14 RF: 0 No Action nitroglycerin 0.4 mg tablet, sublingual 0.4 mg SUBLINGUAL Q5M PRN (Reason: chest pain) Qty: 25 RF: 2 albuterol sulfate 90 mcg/actuation HFA aerosol inhaler 1 puff INHALATION QID PRN (Reason: shortness of breath or wheezing) 180 Days Qty: 18 RF: 6 potassium chloride 10 mEq tablet extended release 20 meq PO DAILY RF: 0 furosemide 20 mg tablet 20 mg PO DAILY RF: 0 ergocalciferol (vitamin D2) 1,250 mcg (50,000 unit) capsule 50,000 unit PO Q7D RF: 0 fluticasone propionate 50 mcg/actuation spray,suspension 1 spray INTRANASAL BID RF: 0 lisinopril 2.5 mg tablet 2.5 mg PO DAILY RF: 0 Oyster Shell Calcium-Vit D3 500 mg(1,250mg) -200 unit tablet 3 tab PO DAILY RF: 0 Xarelto 20 mg tablet 20 mg PO DAILY RF: 0 Discharge Orders: Discharge ED (Routine); Ordered 02/13/21 Ordered By: Dianne Salmeron Referrals: Jey Larios MD [Physician] - 1-3 days Gato Hernandez [Primary Care Provider] - Discharge Diet: Advance as tolerated Discharge Activity: Resume usual activity Patient Instructions: Abdominal Pain (ED), Opioid Safety Coding Level of Care Code ED Blast Furnace Blower for Chg Fwd Exam Comprehensive
[2021-02-12 23:32] LABS: Basophils % 0.5 %; Eosinophils % 0.5 %; Hematocrit 42.2 % (37.0-47.0); Hemoglobin 13.8 g/dL (11.5-15.3); Lymphocytes # 1.2 10^3/uL (0.8-4.8); Mean Corpuscular HGB Conc 32.7 g/dL (30.0-36.0); Mean Corpuscular Hemoglobin 29.5 pg (28.0-34.0); Mean Corpuscular Volume 90.2 fL (81-99); Mean Platelet Volume 10.1 fL (7.4-10.4); Monocytes # 0.5 10^3/uL (0.2-0.9); Monocytes % 5.3 %; Neutrophils % 79.3 %; Nucleated Red Blood Cells % 0 %; Platelet Count 162 10^3/cmm (130-400); Red Blood Count 4.68 10^6/uL (4.1-5.3); White Blood Count 8.4 10^3/uL (4.0-10.0)
[2021-02-12 23:52] LABS: Alanine Aminotransferase 179 U/L (0-33); Alkaline Phosphatase 73 IU/L (35-105); Anion Gap 14.1 (5-19); Aspartate Amino Transferase 326 U/L (0-32); Blood Urea Nitrogen 18 mg/dL (8-23); Calcium 9.2 mg/dL (8.5-10.5); Carbon Dioxide 27 mmol/L (22-29); Chloride 99 mmol/L (98-107); Globulin 2.8 g/dL (1.3-4.6); Glucose 137 mg/dL (65-115); Lipase 19 U/L (13-60); Osmolality Calculated 286 mOsm/kg (285-295); Potassium 4.1 mmol/L (3.5-5.1); Sodium 136 mmol/L (136-145); Total Bilirubin 1.2 mg/dL (0.15-1.2); Total Protein 6.8 g/dL (6.6-8.7)
[2021-02-12 23:53] LABS: Troponin(5th) Baseline 16 ng/L (0-10)
[2021-02-12 23:56] VITALS: RESP 20
[2021-02-12] MEDS: ondansetron 2 mg/ML SDV 2 mL 4 MG IVP (23:56)
[2021-02-12] MEDS: morphine 4 mg/mL SDV 1 mL IVP (23:56)
--- NOTE | 2021-02-13 00:18 | ECG_ITS ---
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 Measurements Intervals [place] Rate: 47 P: [place]: QRS: 69 QRSD: 90 T: 28 QT: 453 QTc: 401 Interpretive Statements ATRIAL FIBRILLATION WITH SLOW VENTRICULAR RESPONSE MODERATE ST DEPRESSION [0.05+ mV ST DEPRESSION] Compared to ECG 02/13/2021 00:14:02 No significant changes Electronically Signed On 02-13-2021 19:52:31 CDT by Brayden Nguyen M.D. [id number]
[2021-02-13 02:00] LABS: Troponin 5 2HR 14.99 ng/L (0-10)
[2021-02-13 02:01] LABS: Troponin 5 2HR Delta -1.01 ABS# (0-10)
[2021-02-13 02:21] VITALS: BP 159/84; PULSE 61; RESP 20; O2SAT 98
--- NOTE | 2021-02-13 11:10 | DCPLANNER ---
clinical research manager had message to schedule a follow up appointment for patient with general surgery for gallstones. clinical research manager emailed patients information to both Sugey and Ana Lilia at [facility] General Surgery. Patients information will be printed and reviewed. Clinic will call patient with appointment information.
--- NOTE | 2021-02-14 08:16 | DCPLANNER ---
Patient has a follow up appointment scheduled for Thursday, February 18, 2021 at 2:[address] Larios at [facility] General Surgery. Clinic will call patient with appointment information.
--- NOTE | 2021-02-22 14:19 | DCPLANNER ---
Patient had a follow up appointment scheduled for 02.18.[address] Larios at [facility] General Surgery - patient did attend appointment.
== END 2021-02-13 02:43 | disposition home or self-care (01) ==
PROVIDERS: Emergency Provider Emergency Medicine
DX: K80.20 Calculus of gallbladder without cholecystitis without obstruction (principal); R10.11 Right upper quadrant pain; I25.10 Atherosclerotic heart disease of native coronary artery without angina pectoris; J44.9 Chronic obstructive pulmonary disease, unspecified
CPT/HCPCS: 36415; 71045; 74176; 80053; 83690; 84484; 85025; 93005; 96374; 96375; 99284; J2270; J2405

== ENCOUNTER 2021-02-20 13:01 | Outpatient (CLI) | payer MEDICARE, OTHER, MEDICAID, SELFPAY ==
--- NOTE | 2021-02-20 13:30 | USCV_ITS ---
Lelia Mcguire Age: 75 Gender: F : 1945 Exam Date: 02/20/2021 13:33 Ordering Phys: Nhan Perrin M.D ([email or web address]) Technologist: Pearl Huerta Exam Location: [facility] – [place] Indication: AORTIC STENOSIS BP: / HR: 69 Rhythm: Sinus Technical Quality: Adequate MEASUREMENTS (Male / Female) Normal Values 2D ECHO LV Diastolic Diameter PLAX 4.1 cm 4.2 - 5.9 / 3.9 - 5.3 cm LV Systolic Diameter PLAX 2.5 cm LV Chamber Size 3.8 cm IVS Diastolic Thickness 1.4 cm 0.6 - 1.0 / 0.6 - 0.9 cm IVS Systolic Thickness 1.6 cm LVPW Diastolic Thickness 2.1 cm 0.6 - 1.0 / 0.6 - 0.9 cm LVPW Systolic Thickness 2.4 cm RV Chamber Size 2.5 cm LVOT Diameter 2.0 cm LV Ejection Fraction 2D Teich 70.2 % LV Ejection Fraction MOD 2C 67.9 % LV Ejection Fraction 2C AL 67.6 % LA Diameter 4.4 cm LA Width 3.6 cm LA Height 5.4 cm RA Width 3.6 cm RA Height 5.8 cm M-MODE LV Diastolic Diameter MM 5.4 cm 4.2 - 5.9 / 3.9 - 5.3 cm LV Systolic Diameter MM 2.6 cm LV Ejection Fraction MM Teich 83.2 % IVS Diastolic Thickness MM 0.8 cm 0.6 - 1.0 / 0.6 - 0.9 cm IVS Systolic Thickness MM 1.3 cm LVPW Diastolic Thickness MM 0.9 cm 0.6 - 1.0 / 0.6 - 0.9 cm LVPW Systolic Thickness MM 1.4 cm Aortic Annulus Diameter 2.2 cm LA Ao Ratio MM 2.2 MV E Point Septal Separation 0.6 cm DOPPLER AV Peak Velocity 334.0 cm/s LVOT Peak Velocity 208.0 cm/s AV Area Cont Eq vti 1.8 cm squared AV Area Cont Eq pk 2.0 cm squared MV Area PHT 4.5 cm squared Mitral E to A Ratio 1.7 MV E' Velocity 68.0 cm/s Mitral E to MV E' Ratio 6.9 Mitral E to LV E' Lateral Ratio 6.5 Mitral E to LV E' Septal Ratio 7.3 TR Peak Velocity 334.3 cm/s TR Peak Gradient 44.7 mmHg TV Peak E Velocity 57.0 cm/s Right Atrial Pressure 3.0 mmHg Pulmonary Artery Systolic Pressu 47.7 mmHg PV Peak Velocity 106.0 cm/s RV Acceleration Time 0.2 s RV Ejection Time 0.4 s RV AcT/ET 0.5 FINDINGS Left Ventricle Normal left ventricular size. LV systolic function is normal with EF of 60-65%. No regional wall motion abnormalities. Diastolic function is indeterminate because of atrial fibrillation Right Ventricle The right ventricle is normal in size and function. Right Atrium The right atrium is enlarged Left Atrium The left atrium is severely enlarged Mitral Valve Structurally normal mitral valve without significant stenosis or prolapse. There is trace mitral regurgitation. Aortic Valve Structurally normal aortic valve. Moderate aortic stenosis is noted. By continuity equation, aortic valve area is 1.8 cm squared with mean gradient across the valve of 23 mmHg. There is mild to moderate aortic regurgitation. Tricuspid Valve Structurally normal tricuspid valve without significant stenosis or regurgitation. Mild to moderate tricuspid regurgitation. RVSP is 45-50mmHg. This is consistent with moderate pulmonary hypertension Pulmonic Valve Structurally normal pulmonic valve without significant stenosis. There is no pulmonic regurgitation. Pericardium Normal pericardium without effusion. Aorta Normal ascending aorta dimension. CONCLUSIONS LV systolic function is normal with EF of 60-65% Diastolic function is indeterminate because of atrial fibrillation Biatrial enlargement Moderate aortic stenosis is noted. By continuity equation, PATRICK is 1.8cm2 and mean gradient across the aortic valve of 23mmHg Mild to moderate aortic regurgitation is noted Mild to moderate tricuspid regurgitation Moderate pulmonary hypertension is seen Compared to prior echocardiogram from 08/21/20 , aortic stenosis has progressed slightly and is moderate now. Will recommend continuing to monitor with 6 monthly echos Nhan Perrin MD (Electronically Signed) Final Date: 03 March 2021 14:10 S
== END 2021-02-20 13:02 | disposition home or self-care (01) ==
LOC: US 13:02
PROVIDERS: Visit Provider Internal Medicine
DX: I08.2 Rheumatic disorders of both aortic and tricuspid valves; I27.20 Pulmonary hypertension, unspecified
CPT/HCPCS: 93306

== ENCOUNTER → 2021-03-01 11:11 | Outpatient (BNVA) | payer MEDICARE, OTHER, MEDICAID, SELFPAY | PROVIDERS: Visit Provider Surgery | DX: Z01.812 Encounter for preprocedural laboratory examination (principal); Z20.822 Contact with and (suspected) exposure to COVID-19 | CPT/HCPCS: 87635 ==

== ENCOUNTER 2021-03-06 05:43 | Day surgery (SDC) | payer MEDICARE, OTHER, MEDICAID, SELFPAY ==
[2021-03-05 14:49] VITALS: BMI 36.6
[2021-03-06] VITALS (11 sets, daily range): BP systolic 85–167; BP diastolic 52–77; PULSE 52–70; RESP 10–20; TEMP 36.1–36.8; O2SAT 94–100
[2021-03-06] MEDS: sodium chloride 0.9% 1,000 ML 30 ML IV (06:28)
--- NOTE | 2021-03-06 06:46 | ANES.PREANE2 ---
Pre-Anesthetic Assessment Pre-Anesthetic Assessment: Height/Weight: Height 1.65 m Weight 99.79 kg Temp Pulse Resp BP Pulse Ox 98.3 F 70 18 165/68 95 03/06/21 06:23 03/06/21 06:23 03/06/21 06:23 03/06/21 06:23 03/06/21 06:23 Preop Diagnosis: Cholelithiasis Proposed Procedure: Operation Date: 03/06/21 07:00 Proposed Procedures p Laparoscopic possible open Cholecystectomy 11110 k80.20(Not Applicable) - Jey Larios MD Was Beta Perez taken within 24 hours: Yes Was Clonidine taken within 24 hours: N/A Last intake: Intake Last Liquid Date 03/05/21 Last Liquid Time 23:00 Last Solid Date 03/05/21 Last Solid Time 20:00 Social: Social History: No alcohol and No tobacco Exam: Pre-Anes Outpt Exam: alert, oriented x 3 and clear to auscultation bilaterally Airway: Submandibular: WNL Cervical ROM: WNL MP: 2 Dentition: Loose Additional comments: Poor dentition Pulmonary: Pulmonary: COPD and Sleep apnea CV/HEM: CV/HEM: Afib, HTN and Murmur Comments: H/O /AI and PHTN (60mmHg), EF maintained approx. 60%, describes herself as an easy bleeder (before Xeralto) Metabolic: Metabolic: Morbid obesity Musc/skel: Comments: Poor functional status b/c of joint pain Anesthetic Plan: ASA status: 3 Anesthesia: General Risk of > 500 ml blood loss (7ml/kg in children): No Meds/Allergies Current Medications: Current Medications Generic Name Dose Route Start Last Admin Trade Name Freq PRN Reason Stop Dose Admin Sodium Chloride 1,000 mls @ 30 ml s/hr 03/06/21 06:00 03/06/21 06:28 Sodium Chloride 0.9% IV 03/07/21 05:59 30 mls/hr .Q24H RAPHAEL Administration PFSH Anesthesia PFSH: Medical History Aortic insufficiency with aortic stenosis Atrial fibrillation CAD (coronary artery disease) COPD (chronic obstructive pulmonary disease) DVT (deep venous thrombosis) Pulmonary arterial hypertension Sleep apnea Surgical History H/O left knee surgery H/O right knee surgery H/O tubal ligation History of colonoscopy with polypectomy 2017 History of esophagogastroduodenoscopy (EGD) Family History Other CAD (coronary artery disease) Social History Smoking and tobacco status: never smoked Second hand smoke exposure: No Smoking risk assessment/counseling performed?: No Alcohol intake: never Desire information about alcohol rehabilitation?: No Counseling given: No Desire information about substance/drug rehabilitation?: No Counseling given: No Lives independently: Yes Household members: none Marital status: / Current occupational status: retired History of recent travel: No Current gender identity: Female Data Anesthesia Cardiac Studies: No Data to Display
--- NOTE | 2021-03-06 06:48 | W.PM.OPSUD ---
Surgery/Procedure H&P Update DATE OF PROCEDURE: March 06, 2021 DATE H&P PERFORMED: 02/18/21 H&P UPDATE INFORMATION: I have reviewed H&P completed within last 30 days, I have examined patient prior to procedure and No changes to prior documentation PREOP DIAGNOSIS: Cholelithiasis PLANNED PROCEDURE: Operation Date: 03/06/21 07:00 Proposed Procedures p Laparoscopic possible open Cholecystectomy 90107 k80.20(Not Applicable) - Jey Larios MD
--- NOTE | 2021-03-06 08:00 | P.OP_ITS ---
Operative Report Date of procedure: March 06, 2021 Pre-op Diagnosis: Cholelithiasis Post-op Diagnosis: 1. Cholelithiasis 2. Incarcerated umbilical hernia containing omentum Procedure Done: 1. Laparoscopic cholecystectomy 2. Open repair of umbilical hernia Specimens removed/disposition: Gallbladder Surgeon: Jey Larios Anesthesia: General Condition: stable Disposition: PACU Procedure: The patient was taken to the operating room and was intubated under general anesthesia. After the antibiotic had been administered, the abdomen was prepped and draped in a sterile manner. Using a #15 blade, a 1 centimeter infraumbilical curvilinear incision was made, the incarcerated umbilical hernia containing omentum was dissected, excised and the peritoneal cavity was entered. A 10 millimeter port was placed and 15 millimeters of pneumoperitoneum was created. A 10 millimeter, 30 degrees scope was introduced. Three 5 millimeter ports were placed in the epigastric, midclavicular and the anterior axillary line two fingerbreadths below the costal margin on the right side under the direct visualization. Ratcheted forceps were introduced into the lateral most port and was used to retract the fundus of the gallbladder cephalad and using forceps the infundibulum of the gallbladder was retracted laterally. Using L- hook cautery the peritoneum overlying the Calot's triangle was opened medially and laterally until the cystic duct and the cystic artery were skeletonized. Dissection was carried along the body of the gallbladder and after ensuring critical view of safety, 4 clips applied on the cystic duct and 3 clips applied on the cystic artery and cut leaving, 3 clips on the remaining portion of the duct and 2 clips on the remaining portion of the artery. The rest of the gallbladder was dissected off the liver using L-hook cautery. There was no bleeding or bile leaking noted from the gallbladder fossa and the clips appeared to be in place. An EndoCatch bag was introduced to remove the gallbladder. All the ports were removed under direct visualization and there was no bleeding noted from the port sites. The fascia of the umbilicus was closed using [id number] 0 Vicryl sutures and the subcutaneous tissue was approximated using 3-0 Vicryl sutures. The skin at all four ports were closed using 4-0 Monocryl and Dermabond. A total of 10 millimeters of 0.5% Marcaine was infiltrated around the port sites. The patient was stable throughout the procedure.
[2021-03-06] MEDS: fentaNYL 50 mcg/mL INJ 2mL IVP ×2 (08:01→08:06)
--- NOTE | 2021-03-06 14:33 | ANE.PACU2 ---
Inpatient post-anesthesia follow up: Airway intact: Yes Vital signs: Temperature 97.9 F Pulse Rate 54 Respiratory Rate 16 Blood Pressure 150/52 Pulse Oximetry 96 Oxygen Delivery Me thod Room Air Oxygen Flow Rate 8 Fraction of Inspir ed Oxygen Hydration adequate: Yes Nausea and vomiting: No Pain level: 2 Mental status: Baseline
== END 2021-03-06 09:15 | disposition home or self-care (01) ==
PROVIDERS: Visit Provider Surgery
PROC: 0FT44ZZ Resection of Gallbladder, Percutaneous Endoscopic Approach (ICD-10-PCS; CPT 47562; principal; 2021-03-06 07:00)
DX: K80.10 Calculus of gallbladder with chronic cholecystitis without obstruction (principal); K42.0 Umbilical hernia with obstruction, without gangrene; J44.9 Chronic obstructive pulmonary disease, unspecified; G47.30 Sleep apnea, unspecified; I48.91 Unspecified atrial fibrillation; I10 Essential (primary) hypertension; E66.01 Morbid (severe) obesity due to excess calories; Z68.36 Body mass index [BMI] 36.0-36.9, adult; Z79.01 Long term (current) use of anticoagulants; I25.10 Atherosclerotic heart disease of native coronary artery without angina pectoris; Z86.718 Personal history of other venous thrombosis and embolism; Z82.49 Family history of ischemic heart disease and other diseases of the circulatory system
CPT/HCPCS: 47562; 49587; 88304; J0690; J1100; J2250; J2405; J2704; J2710; J3010; J3490; J7030

== ENCOUNTER 2021-03-10 08:14 | Emergency (ER) | payer MEDICARE, OTHER, MEDICAID, SELFPAY ==
[2021-03-10 08:16] VITALS: BP 185/88; PULSE 80; RESP 18; TEMP 36.6; O2SAT 95; BMI 37.8
[2021-03-10 08:30] VITALS: BP 188/88; PULSE 88; RESP 18; O2SAT 98
--- NOTE | 2021-03-10 08:30 | CTR_ITS ---
PROCEDURE INFORMATION: Exam: CT Abdomen And Pelvis Without Contrast Exam date and time: 03/10/2021 8:37 AM Age: 75 years old Clinical indication: Abdominal pain; Localized; Right; Prior surgery; Surgery date: 3-7 days post-operative; Surgery type: Gb; Additional info: Bleeding post op TECHNIQUE: Imaging protocol: Computed tomography of the abdomen and pelvis without contrast. Radiation optimization: All CT scans at this facility use at least one of these dose optimization techniques: automated exposure control; mA and/or kV adjustment per patient size (includes targeted exams where dose is matched to clinical indication); or iterative reconstruction. COMPARISON: CT abdomen pelvis wo con [id number] 02/12/2021 10:45 PM RADIATION DOSE METRICS: Total DLP (mGy-cm): 1769.03 FINDINGS: Detailed evaluation of the abdominal and pelvic viscera is somewhat limited in the absence of intravenous contrast. Inferior thorax: Interstitial prominence. Cardiomegaly and coronary artery calcification. Small hiatal hernia. Liver: No focal hepatic mass. Gallbladder and bile ducts: Status post cholecystectomy with mild infiltration of surrounding fat in the postoperative gallbladder fossa. No biliary ductal dilatation. Pancreas: No pancreatic mass or ductal dilatation. Spleen: No splenomegaly. Adrenal glands: Stable adrenal nodularity. Kidneys and ureters: Stable 2.3 cm left renal cyst. Mild bilateral infiltration of perinephric fat. No hydronephrosis. Stomach and bowel: Mild bowel dilatation and prominent stool, in a pattern of constipation. Diverticula, without pericolonic inflammation. Appendix: Appendicoliths, without acute appendicitis. Intraperitoneal space: Localized infiltration of mesenteric fat in the anterior abdominal wall midline, at the level of the pelvic inlet. Trace dependent free fluid in the cul-de-sac. Vasculature: Prominent vascular calcification. No abdominal aortic aneurysm. Lymph nodes: No pathologically enlarged lymph nodes. Urinary bladder: Normal bladder morphology. Reproductive: Calcified fibroid uterus. Bones/joints: Osteopenia and degenerative change. Grade 1 anterolisthesis of L4 on L5. Chronic compression deformity involving the T12 vertebral body. Soft tissues: Infiltration of subcutaneous fat and air about the umbilicus. Injection granulomata. Localized subcutaneous edema in the right lateral abdominal wall. CT/CT abdomen pelvis con [id number] IMPRESSION: 1. Localized subcutaneous edema in the right lateral abdominal wall. 2. Status post cholecystectomy with mild infiltration of surrounding fat in the postoperative gallbladder fossa. 3. Additional findings as described above. Radiation Dose CTDIVOL = (mGy): DLP = 1769.03 (mGy-cm)
--- NOTE | 2021-03-10 08:46 | ECG_ITS ---
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
[2021-03-10 08:48] LABS: Basophils # 0.1 10^3/uL (0.0-0.1); Basophils % 0.9 %; Eosinophils # 0.2 10^3/uL (0.0-0.8); Eosinophils % 2.9 %; Hematocrit 44.6 % (37.0-47.0); Hemoglobin 14.3 g/dL (11.5-15.3); Lymphocytes # 2.8 10^3/uL (0.8-4.8); Lymphocytes % 42.7 %; Mean Corpuscular HGB Conc 32.1 g/dL (30.0-36.0); Mean Corpuscular Hemoglobin 29.1 pg (28.0-34.0); Mean Corpuscular Volume 90.8 fL (81-99); Monocytes # 0.5 10^3/uL (0.2-0.9); Monocytes % 6.9 %; Nucleated Red Blood Cells % 0 %; Platelet Count 188 10^3/cmm (130-400); Red Blood Count 4.91 10^6/uL (4.1-5.3); Red Cell Distribution Width 14.2 % (12.1-15.1); White Blood Count 6.5 10^3/uL (4.0-10.0)
[2021-03-10] MEDS: sodium chloride 0.9% 1,000 ML 150 ML IV (08:55)
[2021-03-10 08:59] LABS: Lactate (Lactic Acid level) 2.1 mmol/L (0.5-2.2)
--- NOTE | 2021-03-10 08:59 | W.ED.ABDPA2 ---
HPI - Abdominal Pain General: Chief Complaint: Abdominal Pain Stated Complaint: POST OP COMPLICATIONS Time Seen by Provider: 03/10/21 08:21 Source: patient and family Mode of arrival: ambulatory Limitations: no limitations History of Present Illness: HPI narrative: Pleasant 75-year-old female patient presents to the emergency department with postoperative possible bleeding. She had cholecystectomy laparoscopic completed 03/06/[address] Ric glass at [facility]. She reports took Xarelto yesterday, states onset of a red spot that was small on her right side that started yesterday, states today there is bruising and swelling to the right lower side and radiating to her back. She denies rectal bleeding, nausea vomiting, denies abdominal pain. She last ate last night. Had a few sips of coffee this morning. She has anaphylactic shock to IV contrast. She denies nausea vomiting chest pain or shortness of breath. MD elicited complaint: other Pertinent past history: other (Recent surgery) Quality: aching and fullness Migration to: no migration Exacerbating factors: nothing Relieving factors: nothing Context: recent surgery/procedure Associated Symptoms: Reports no associated symptoms; Denies chills, constipation, diarrhea, dysuria, fever(s), heartburn, nausea and vomiting Treatments prior to arrival: other (She reports took her first dose of Xarelto yesterday, Xarelto was on hold due to surgery) Review of Systems General: Reports: 10 or more systems reviewed and unremarkable except in HPI and below Const: Denies: fever(s), chills, fatigue, malaise, diaphoresis or change in sleep pattern Eyes: Denies: blurry vision or eye redness ENMT: Denies: throat pain, dental pain or disequilibrium Card: Denies: chest pain, palpitations, irregular heart rhythm, swelling of feet/ankles or dyspnea on exertion Resp: Denies: dyspnea, productive cough, non-productive cough, wheezing or chest congestion GI: Denies: abdominal pain, nausea, vomiting, dysphagia, heartburn, diarrhea or constipation : Denies: difficulty voiding or dysuria Musc: Denies: neck pain, back pain, muscle cramps or muscle weakness Skin/Breast: Reports: erythema and changes in skin color; Denies: rash or pruritus Neuro: Denies: headache(s), numbness in extremities, weakness in extremities, confusion or behavioral changes Psych: Denies: anxiety or depression Sarkis/Lymph: Denies: easy bruising PFSH ED PFSH: Medical History Aortic insufficiency with aortic stenosis Atrial fibrillation CAD (coronary artery disease) COPD (chronic obstructive pulmonary disease) DVT (deep venous thrombosis) Pulmonary arterial hypertension Sleep apnea Surgical History (Updated 03/06/21 @ 07:59 by Jey Larios MD) H/O left knee surgery H/O right knee surgery H/O tubal ligation History of colonoscopy with polypectomy 2017 History of esophagogastroduodenoscopy (EGD) Status post laparoscopic cholecystectomy (03/06/21) Family History Other CAD (coronary artery disease) Social History Smoking and tobacco status: never smoked Second hand smoke exposure: No Smoking risk assessment/counseling performed?: No Alcohol intake: never Desire information about alcohol rehabilitation?: No Counseling given: No Desire information about substance/drug rehabilitation?: No Counseling given: No Lives independently: Yes Household members: none Marital status: / Current occupational status: retired History of recent travel: No Current gender identity: Female Physical Exam Const: COMMON NORMALS: no acute distress, patient oriented x3, healthy appearing, alert and well nourished GENERAL APPEARANCE: cooperative, comfortable, well kempt, well developed and well hydrated NUTRITIONAL APPEARANCE: overweight ORIENTATION/CONSCIOUSNESS: Yes awake, Yes oriented to person, Yes oriented to place and Yes oriented to time HENMT: COMMON NORMALS: normocephalic, atraumatic, Normal external nose present and moist oral mucous membranes HEAD & SCALP: normocephalic and atraumatic FACE & SINUS: normal facial exam and face symmetric NOSE: Normal external nose present MOUTH: Normal oral and palatal mucosa present, lip normal and tongue normal Eye: COMMON NORMALS: Equal, round and reactive pupils present and EOMs intact bilaterally GENERAL EYE: appearance normal, both eyes and all related structures PUPIL: Yes Equal, round and reactive pupils present Neck/C-Spine: COMMON NORMALS: full ROM and no lymphadenopathy GENERAL: Yes normal visual inspection and Yes trachea midline CERVICAL SPINE: Yes cervical ROM normal Lymph: LYMPHATIC: no lymphadenopathy noted Chest: COMMONS NORMALS: normal inspection of the chest and normal palpation of entire chest wall Resp: COMMON NORMALS: normal respiratory effort, No retractions, No use of accessory muscles and clear to auscultation bilaterally EFFORT & INSPECTION: Yes able to speak in complete sentences, No labored and No audible wheezes AUSCULTATION: clear to auscultation bilaterally Cardio: COMMON NORMALS: regular rate, regular rhythm, S1 normal heart sound present, S2 normal heart sound present and Peripheral pulses 2+ throughout RATE: regular rate RHYTHM: regular rhythm HEART SOUNDS: S1 normal heart sound present and S2 normal heart sound present PERIPHERAL PULSES: Peripheral pulses 2+ throughout GI: COMMON NORMALS: Soft to palpation and non-tender INSPECTION: Yes normal to inspection, Yes abdominal wall ecchymosis (rt flank/lower rt abdomen radiating to the left back ), Yes Abdominal wall edema (rt flank), Yes incision Inspection of incision: healing well, Yes central obesity and Yes Localized GI swelling present PALPATION: Yes Soft to palpation and Yes Tenderness to palpation present (GI) (slight) Details: RUQ : COMMON NORMALS: Yes no CVA tenderness BLADDER/KIDNEY EXAM: Yes no CVA tenderness Back/Pelvis: COMMON NORMALS: no CVA tenderness and thoracic and lumbar spine normal to inspection Extremity: COMMON NORMALS: normal to inspection, full ROM, capillary refill normal, no clubbing, cyanosis or edema and no pedal edema GENERAL: Yes normal exam except as noted Neuro: COMMON NORMALS: patient oriented x3 and no focal motor deficits SENSORIUM/ORIENTATION: Yes alert, Yes oriented to person, Yes oriented to place and Yes oriented to time GAIT: Yes Normal gait present MOTOR EXAM: 5/5 motor strength present throughout Psych: COMMON NORMALS: mental status grossly normal, Normal thought process present and cooperative APPEARANCE: Yes well kempt ACTIVITY/MOTOR BEHAVIOR: Yes appropriate eye contact THOUGHT PROCESS: Normal thought process present Skin: COMMON NORMALS: no rashes or lesions noted, turgor normal, no petechiae and no mottling SKIN IMAGES (FEMALE): 1. Ecchymosis with dark discoloration suggestive of retroperitoneal bleed 2. Ecchymosis present with dark discoloration GENERAL SKIN EXAM: no rashes or lesions noted, elasticity normal and turgor normal Course ED course: Pleasant 75-year-old female patient presents to the emergency department with postoperative bleeding concern. CT scan did reveal subcutaneous edema in the right lateral abdominal wall. Consistent with findings of ecchymosis, hemoglobin stable 14/hematocrit 44.6; remaining chemistry unremarkable, lactate was 2.1. INR was noted to be elevated at 2.4, she was placed back on Xarelto yesterday, she is not on Coumadin. She reports history of nosebleeds and easy bruising since she was a child. Question underlying clotting issue due to elevated INR found today. She was administered vitamin K, 5 mg subcu. Advised to hold Xarelto for 5 days. I advised need to follow-up tomorrow for repeat INR, social service referral placed to assist with follow-up appointment with Dr. Larios for this week and her primary care provider. She reports concern of stopping Xarelto secondary to development of DVTs. I advised is highly unlikely for the next 48 hours she would develop a DVT; however, if such symptoms occur, she was to return to the emergency department immediately. Area of ecchymosis to the right lateral abdomen was marked, it was dependent in nature in a lying position. She was advised to continue monitoring for bleeding, return to the emergency department immediately if she developed abdominal pain, increased bleeding/ecchymosis or other concerning symptoms. Consultations: Consultation #1: Dr. Larios, discussed CT findings, history of present illness, serology results as well as discoloration of the skin appreciated upon exam, advised patient to stop Xarelto for 5 days, advised patient to receive vitamin K. Patient is to follow-up in his office this week for reevaluation. Time: 10:20 Vital Signs: Vital signs: Vital Signs Temperature 97.8 F 03/10/21 08:16 Pulse Rate 61 03/10/21 09:30 Respiratory Rate 15 03/10/21 10:00 Blood Pressure 188/88 03/10/21 08:30 Pulse Oximetry 96 03/10/21 09:30 MDM - Abdominal Pain Differential Diagnosis: Differential diagnosis abdominal pain: Likely abdominal pain, endometriosis and gastroenteritis Lab Data: Labs: Lab Results 03/10/21 03/10/21 03/10/21 Range/Units 08:25 08:25 08:25 WBC 6.5 (4.0-10.0) 10^3/ uL RBC 4.91 (4.1-5.3) 10^6/u L Hgb 14.3 (11.5-15.3) g/dL Hct 44.6 (37.0-47.0) % MCV 90.8 (81-99) fL MCH 29.1 (28.0-34.0) pg MCHC 32.1 (30.0-36.0) g/dL RDW 14.2 (12.1-15.1) % Plt Count 188 (130-400) 10^3/c mm MPV 11.0 H (7.4-10.4) fL Neut % (Auto) 46.0 % Lymph % (Auto) 42.7 % Pershing % (Auto) 6.9 % Eos % (Auto) 2.9 % Baso % (Auto) 0.9 % Neut # (Auto) 3.00 (1.8-7.7) 10^3/u L Lymph # (Auto) 2.8 (0.8-4.8) 10^3/u L Pershing # (Auto) 0.5 (0.2-0.9) 10^3/u L Eos # (Auto) 0.2 (0.0-0.8) 10^3/u L Baso # (Auto) 0.1 (0.0-0.1) 10^3/u L Nucleated RBC % (a uto) 0 % Nucleated RBCs # 0.0 /100WBC PT (12.1-14.9) SECO NDS INR (0.8-1.2) APTT (23.9-36.7) SECO NDS Sodium 141 (136-145) mmol/L Potassium 3.8 (3.5-5.1) mmol/L Chloride 103 (98-107) mmol/L Carbon Dioxide 27 (22-29) mmol/L Anion Gap 14.8 (5-19) BUN 15 (8-23) mg/dL Creatinine 0.8 (0.5-0.9) mg/dL GFR Calculation Not Reportable Glucose 115 (65-115) mg/dL Calculated Osmolal ity 294 (285-295) mOsm/k g Lactate 2.1 (0.5-2.2) mmol/L Calcium 8.9 (8.5-10.5) mg/dL Total Bilirubin 0.8 (0.15-1.2) mg/dL AST 31 (0-32) U/L ALT 29 (0-33) U/L Alkaline Phosphata se 68 (35-105) IU/L Total Protein 7.1 (6.6-8.7) g/dL Albumin 4.2 (3.5-5.2) g/dL Globulin 2.9 (1.3-4.6) g/dL Lipase 19 (13-60) U/L Urine Color (Yellow) Urine Appearance (CLEAR) Urine pH (5-7) Ur Specific Gravit y (1.005-1.030) Urine Protein (Negative) Urine Glucose (UA) (Normal) Urine Ketones (Negative) Urine Blood (Negative) Urine Nitrate (Negative) Urine Bilirubin (Negative) Urine Urobilinogen (Negative) mg/dL Ur Leukocyte Jessika ase (Negative) Blood Type Rho(D) Type Antibody Screen 03/10/21 03/10/21 03/10/21 Range/Units 08:25 08:40 08:45 WBC (4.0-10.0) 10^3/ uL RBC (4.1-5.3) 10^6/u L Hgb (11.5-15.3) g/dL Hct (37.0-47.0) % MCV (81-99) fL MCH (28.0-34.0) pg MCHC (30.0-36.0) g/dL RDW (12.1-15.1) % Plt Count (130-400) 10^3/c mm MPV (7.4-10.4) fL Neut % (Auto) % Lymph % (Auto) % Pershing % (Auto) % Eos % (Auto) % Baso % (Auto) % Neut # (Auto) (1.8-7.7) 10^3/u L Lymph # (Auto) (0.8-4.8) 10^3/u L Pershing # (Auto) (0.2-0.9) 10^3/u L Eos # (Auto) (0.0-0.8) 10^3/u L Baso # (Auto) (0.0-0.1) 10^3/u L Nucleated RBC % (a uto) % Nucleated RBCs # /100WBC PT 27.30 H (12.1-14.9) SECO NDS INR 2.49 H (0.8-1.2) APTT 37.7 H (23.9-36.7) SECO NDS Sodium (136-145) mmol/L Potassium (3.5-5.1) mmol/L Chloride (98-107) mmol/L Carbon Dioxide (22-29) mmol/L Anion Gap (5-19) BUN (8-23) mg/dL Creatinine (0.5-0.9) mg/dL GFR Calculation Glucose (65-115) mg/dL Calculated Osmolal ity (285-295) mOsm/k g Lactate (0.5-2.2) mmol/L Calcium (8.5-10.5) mg/dL Total Bilirubin (0.15-1.2) mg/dL AST (0-32) U/L ALT (0-33) U/L Alkaline Phosphata se (35-105) IU/L Total Protein (6.6-8.7) g/dL Albumin (3.5-5.2) g/dL Globulin (1.3-4.6) g/dL Lipase (13-60) U/L Urine Color Colorless (Yellow) Urine Appearance Clear (CLEAR) Urine pH 5 (5-7) Ur Specific Gravit y 1.010 (1.005-1.030) Urine Protein Neg (Negative) Urine Glucose (UA) Norm (Normal) Urine Ketones Negative (Negative) Urine Blood Neg (Negative) Urine Nitrate Negative (Negative) Urine Bilirubin Neg (Negative) Urine Urobilinogen Norm (Negative) mg/dL Ur Leukocyte Jessika ase Negative (Negative) Blood Type O Negative Rho(D) Type Negative / 0 Antibody Screen Negative Imaging Data ^: CT Abd/Pel: Radiologist's impression: [address] [address] [address] Scan Report Signed Patient: Lelia Mcguire I Unit #: [id number] : 1945 Age/Sex: 75 / F ADM Date: 03/10/21 Loc: ER Room/Bed: Attending Dr: Ordering Provider/Ordering MD: Olinda Herman Date of Service: 03/10/21 Procedure(s): CT abdomen pelvis con [id number] Accession Number(s): [id number] Report Number: [id number] PROCEDURE INFORMATION: Exam: CT Abdomen And Pelvis Without Contrast Exam date and time: 03/10/2021 8:37 AM Age: 75 years old Clinical indication: Abdominal pain; Localized; Right; Prior surgery; Surgery date: 3-7 days post-operative; Surgery type: Gb; Additional info: Bleeding post op TECHNIQUE: Imaging protocol: Computed tomography of the abdomen and pelvis without contrast. Radiation optimization: All CT scans at this facility use at least one of these dose optimization techniques: automated exposure control; mA and/or kV adjustment per patient size (includes targeted exams where dose is matched to clinical indication); or iterative reconstruction. COMPARISON: CT abdomen pelvis wo con [id number] 02/12/2021 10:45 PM RADIATION DOSE METRICS: Total DLP (mGy-cm): 1769.03 FINDINGS: Detailed evaluation of the abdominal and pelvic viscera is somewhat limited in the absence of intravenous contrast. Inferior thorax: Interstitial prominence. Cardiomegaly and coronary artery calcification. Small hiatal hernia. Liver: No focal hepatic mass. Gallbladder and bile ducts: Status post cholecystectomy with mild infiltration of surrounding fat in the postoperative gallbladder fossa. No biliary ductal dilatation. Pancreas: No pancreatic mass or ductal dilatation. Spleen: No splenomegaly. Adrenal glands: Stable adrenal nodularity. Kidneys and ureters: Stable 2.3 cm left renal cyst. Mild bilateral infiltration of perinephric fat. No hydronephrosis. Stomach and bowel: Mild bowel dilatation and prominent stool, in a pattern of constipation. Diverticula, without pericolonic inflammation. Appendix: Appendicoliths, without acute appendicitis. Intraperitoneal space: Localized infiltration of mesenteric fat in the anterior abdominal wall midline, at the level of the pelvic inlet. Trace dependent free fluid in the cul-de-sac. Vasculature: Prominent vascular calcification. No abdominal aortic aneurysm. Lymph nodes: No pathologically enlarged lymph nodes. Urinary bladder: Normal bladder morphology. Reproductive: Calcified fibroid uterus. Bones/joints: Osteopenia and degenerative change. Grade 1 anterolisthesis of L4 on L5. Chronic compression deformity involving the T12 vertebral body. Soft tissues: Infiltration of subcutaneous fat and air about the umbilicus. Injection granulomata. Localized subcutaneous edema in the right lateral abdominal wall. CT/CT abdomen pelvis wo con [id number] IMPRESSION: 1. Localized subcutaneous edema in the right lateral abdominal wall. 2. Status post cholecystectomy with mild infiltration of surrounding fat in the postoperative gallbladder fossa. 3. Additional findings as described above. Radiation Dose CTDIVOL = (mGy): DLP = 1769.03 (mGy-cm) Dictated By: Gordo Stallings MD Signed By: Gordo Stallings MD Signed Date/Time: 03/10/21943 DD/ 2 CXR: Radiologist's impression: [address] [address] XRay Report Signed Patient: Lelia Mcguire I Unit #: [id number] : 1945 Age/Sex: 75 / F ADM Date: 03/10/21 Loc: ER Room/Bed: Attending Dr: Ordering Provider/Ordering MD: Olinda Herman Date of Service: 03/10/21 Procedure(s): XR chest 1V portable [id number] Accession Number(s): [id number] Report Number: [id number] PROCEDURE INFORMATION: Exam: XR Chest Exam date and time: 03/10/2021 9:04 AM Age: 75 years old Clinical indication: Other: Abd post op bleeding; Prior surgery; Surgery type: Gb TECHNIQUE: Imaging protocol: XR of the chest. Views: 1 view. COMPARISON: CR XR chest 1V portable [id number] 02/12/2021 10:29 PM FINDINGS: Lungs: Mild interstitial prominence. Pleural spaces: No significant pleural effusion. Heart/Mediastinum: Cardiomegaly. Vasculature: Ectasia of the thoracic aorta. Bones/joints: Osteopenia, degenerative change, scoliosis. When correlating with the previous study, no significant interval changes are present. XR/XR chest 1V portable [id number] IMPRESSION: Stable appearance of the chest, not significantly changed from 02/12/21. Dictated By: Gordo Stallings MD Signed By: Gordo Stallings MD Signed Date/Time: 03/10/21944 DD/ 3 Discharge Plan Discharge Patient Disposition: Home Clinical Impression: Elevated INR Post-op bleeding Qualifiers: Surgical complication system/body Area: subcutaneous tissue Procedure type: non-dermatologic Qualified Code(s): L76.22 - Postprocedural hemorrhage of skin and subcutaneous tissue following other procedure Condition: Stable Prescriptions: Held Xarelto 20 mg tablet 20 mg PO DAILY RF: 0 Hold Instructions: Resume on 03/14/21. No Action furosemide 20 mg tablet 20 mg PO DAILY RF: 0 potassium chloride 10 mEq tablet extended release 20 meq PO DAILY RF: 0 fluticasone propionate 50 mcg/actuation spray,suspension 1 spray INTRANASAL BID RF: 0 calcium carbonate-vitamin D3 [Oyster Shell Calcium-Vit D3] 500 mg(1,250mg) -200 unit tablet 3 tab PO DAILY RF: 0 hydrocodone-acetaminophen 5-325 mg tablet 1 tab PO Q6H PRN (Reason: pain) Qty: 20 RF: 0 Zofran 4 mg tablet 4 mg PO Q6H PRN (Reason: nausea and vomiting) Qty: 20 RF: 0 Senna with Docusate Sodium 8.6-50 mg tablet 1 tab-cap PO BID Qty: 30 RF: 0 Discharge Orders: Discharge ED (Routine); Ordered 03/10/21 Ordered By: Olinda Herman Referrals: Gato Hernandez [Primary Care Provider] - Discharge Diet: Usual diet Discharge Activity: Limit activity as instructed Patient Instructions: Postoperative Bleeding (ED), Elevated INR (ED), Opioid Safety Activity Restrictions/Additional Instructions: Rest at home, continue laparoscopic cholecystectomy postoperative discharge instructions as per surgical services, follow-up with Dr. Larios this week without fail for reevaluation. director of career services will be contacting you with an appointment with Dr. Larios. Follow-up with your primary care provider tomorrow for repeat INR, INR was found to be elevated today which increases your bleeding risk. Repeat INR suggested. Return to the emergency department if you develop increased bleeding, abdominal pain, blood in your stool or vomiting. Continue all current medications and treatments with exception of Xarelto. He will need to hold Xarelto for 5 days. Coding Level of Care Code ED Snack Stewardess for Isabel Fwcarmen Exam Comprehensive
[2021-03-10 09:00] LABS: Add Urine Microscopic? NO; Charge for UA Resulting for Rev
--- NOTE | 2021-03-10 09:03 | XRR_ITS ---
PROCEDURE INFORMATION: Exam: XR Chest Exam date and time: 03/10/2021 9:04 AM Age: 75 years old Clinical indication: Other: Abd post op bleeding; Prior surgery; Surgery type: Gb TECHNIQUE: Imaging protocol: XR of the chest. Views: 1 view. COMPARISON: CR XR chest 1V portable [id number] 02/12/2021 10:29 PM FINDINGS: Lungs: Mild interstitial prominence. Pleural spaces: No significant pleural effusion. Heart/Mediastinum: Cardiomegaly. Vasculature: Ectasia of the thoracic aorta. Bones/joints: Osteopenia, degenerative change, scoliosis. When correlating with the previous study, no significant interval changes are present. XR/XR chest 1V portable [id number] IMPRESSION: Stable appearance of the chest, not significantly changed from 02/12/21.
[2021-03-10 09:04] LABS: Alanine Aminotransferase 29 U/L (0-33); Albumin Level 4.2 g/dL (3.5-5.2); Alkaline Phosphatase 68 IU/L (35-105); Anion Gap 14.8 (5-19); Aspartate Amino Transferase 31 U/L (0-32); Blood Urea Nitrogen 15 mg/dL (8-23); Calcium 8.9 mg/dL (8.5-10.5); Carbon Dioxide 27 mmol/L (22-29); Chloride 103 mmol/L (98-107); Creatinine Clr Calc Pharmacy 70.8418; Globulin 2.9 g/dL (1.3-4.6); Glucose 115 mg/dL (65-115); Lipase 19 U/L (13-60); Osmolality Calculated 294 mOsm/kg (285-295); Potassium 3.8 mmol/L (3.5-5.1); Sodium 141 mmol/L (136-145); Total Bilirubin 0.8 mg/dL (0.15-1.2); Total Protein 7.1 g/dL (6.6-8.7)
[2021-03-10 09:08] LABS: Partial Thromboplastin Time 37.7 SECONDS (23.9-36.7)
[2021-03-10 09:10] LABS: Urine Appearance Clear (CLEAR); pH Urine 5 (5-7)
[2021-03-10 09:11] LABS: Bilirubin Urine Neg (Negative); Blood Urine Neg (Negative); Glucose Urine UA Norm (Normal); Ketones Urine Negative (Negative); Leukocyte Esterase Urine Negative (Negative); Nitrate Urine Negative (Negative); Protein Urine Neg (Negative); Urine Color Colorless (Yellow); Urobilinogen Urine Norm (Negative)
[2021-03-10 09:25] LABS: INR 2.49 (0.8-1.2)
[2021-03-10 09:30] VITALS: PULSE 61; RESP 18; O2SAT 96
[2021-03-10 10:00] VITALS: RESP 15
[2021-03-10] MEDS: phytonadione (ADULT) 10 mg/mL Ampule 1 mL 5 MG SUBCUT (11:16)
[2021-03-10 11:24] VITALS: RESP 15
--- NOTE | 2021-03-11 10:23 | DCPLANNER ---
customer experience manager had message to schedule a follow up appointment for patient with primary care and Dr. Larios at [facility]. customer experience manager called patient to confirm who she sees for primary care. Patient stated that she has an appointment already scheduled with her primary care physician. customer experience manager also had message to also schedule a follow up appointment for patient with Dr. Larios. customer experience manager emailed patients information to both Sugey and Ana Lilia at [facility]. Patients information will be printed and reviewed. Clinic will call patient with appointment information.
--- NOTE | 2021-03-13 07:47 | DCPLANNER ---
Patient had a follow up appointment scheduled for 03.12.21 with general surgery - patient did attend appointment.
== END 2021-03-10 11:25 | disposition home or self-care (01) ==
PROVIDERS: Emergency Provider Nurse Practitioner Family
DX: L76.22 Postprocedural hemorrhage of skin and subcutaneous tissue following other procedure (principal); R79.89 Other specified abnormal findings of blood chemistry; I48.91 Unspecified atrial fibrillation; I25.10 Atherosclerotic heart disease of native coronary artery without angina pectoris; J44.9 Chronic obstructive pulmonary disease, unspecified
CPT/HCPCS: 71045; 74176; 80053; 81003; 83605; 83690; 85025; 85610; 85730; 86850; 86900; 93005; 96360; 96361; 96372; 99284; J3430; J7030

== ENCOUNTER 2021-03-18 10:21 | Outpatient (CLI) | payer MEDICARE, OTHER, MEDICAID, SELFPAY ==
[2021-03-18 11:08] LABS: INR 2.24 (0.8-1.2)
== END 2021-03-18 10:22 | disposition home or self-care (01) ==
LOC: LAB 10:29
PROVIDERS: Visit Provider Surgery
DX: R79.1 Abnormal coagulation profile (principal)
CPT/HCPCS: 36415; 85610

== ENCOUNTER 2021-03-27 08:11 | Outpatient (CLI) | payer MEDICARE, OTHER, MEDICAID, SELFPAY ==
--- NOTE | 2021-03-27 08:23 | USCV_ITS ---
Lelia Mcguire Age: 75 Gender: F : 1945 Exam Date: 03/27/2021 08:33 Ordering Phys: Brigitte Mccoy NP Technologist: Exam Location: [facility] [place] Indication: SWELLING HISTORY: Lower extremity swelling. PROCEDURES: Venous duplex imaging was performed in only the left lower extremity. The following venous structures were evaluated: common femoral vein, profunda vein, proximal portion of the greater saphenous vein, superficial femoral vein, and the popliteal vein. In addition, the posterior tibial and peroneal trunk were evaluated. Serial compression, augmentation maneuvers, and spectral Doppler flow evaluation were performed. FINDINGS: Normal 2-D Doppler and augmentation and compressibility throughout the lower extremity venous structures. Additional imaging through the proximal calf veins also reveals no thrombus. Limited evaluation of the greater saphenous vein is patent with no thrombus. CONCLUSIONS No DVT left lower extremity. Dr. China Su DO (Electronically Signed) Final Date: 27 Mar 2021 09:34 S
== END 2021-03-27 08:12 | disposition home or self-care (01) ==
LOC: RAD 08:21
PROVIDERS: Visit Provider Nurse Practitioner Family
DX: M79.662 Pain in left lower leg (principal); M79.89 Other specified soft tissue disorders
CPT/HCPCS: 93971

== ENCOUNTER 2021-05-30 13:51 | Inpatient (IN) | payer MEDICARE, OTHER, MEDICAID, SELFPAY ==
[2021-05-30] VITALS (28 sets, daily range): BP systolic 119–168; BP diastolic 50–70; PULSE 0–60; RESP 16–28; TEMP 36.6–36.9; O2SAT 91–97; BMI 37.8
--- NOTE | 2021-05-30 14:00 | XR_ITS ---
WS: [id number] Portable AP upright chest, 05/30/2021 Clinical Data: Cough Comparison: Portable chest, 03/10/2021. Findings: No nodules, masses or effusions are seen. The heart is enlarged. The pulmonary vascularity is not increased. No pneumonia or pneumothorax is seen. The aortic arch shows tortuosity. There is a slight dextroscoliosis of the thoracic spine. XR/XR chest 1V portable [id number] Impression: Atherosclerosis and cardiomegaly.
--- NOTE | 2021-05-30 14:00 | ECG_ITS ---
[facility] Test Date: 2021-05-30 Pat Name: Lelia Mcguire Department: Room: Gender: Female Store Receiving Specialist: : 1945 Requested By: Derik Norman Order Number: [id number] Khushbu MD: Nhan Perrin M.D. Measurements Intervals Tutor Key Rate: 43 P: 160 GA: 309 QRS: 76 QRSD: 87 T: 14 QT: 459 QTc: 391 Interpretive Statements Atrial fibrillation Compared to ECG 03/10/2021 09:09:15 First degree AV block now present Atrial fibrillation ST (T wave) deviation no longer present Electronically Signed On 05-30-2021 23:38:12 CDT by Nhan Perrin M.D. [id number]
--- NOTE | 2021-05-30 14:01 | W.ED.GENADLT ---
HPI - General Adult General: Chief complaint: Chest Pain Stated complaint: CHEST PAIN Time Seen by Provider: 05/30/21 13:56 History of Present Illness: HPI narrative: This patient is a 75-year-old female who presents to the emergency department with complaint of chest pain x1 month. Patient states that she was evaluated by cardiology and was placed on metoprolol and has a follow-up appointment within 3 weeks due to her hypertension. Patient states that she has noticed that her blood pressure is better but her heart rate gets down in the low 50s 40s. And at night she feels fatigued but cannot really sleep. Patient does not describe cardiac type chest pain. But does describe side effects of beta-ti medication. Patient states has a history of hypertension was previously on lisinopril but they had stopped that medication. Do medical evaluation treat as needed Onset (ago): week(s) Radiation: non-radiation Relieving factors: none Exacerbating factors: none Associated symptoms: Reports chest pain; Deny dyspnea, headache(s), nausea, rash, palpitations or vomiting Review of Systems General: Reports: 10 or more systems reviewed and unremarkable except in HPI and below Const: Reports: fatigue; Denies: fever(s), chills or body aches Eyes: Denies: change in vision or blurry vision ENMT: Denies: throat pain, hoarseness or mouth pain Card: Reports: chest pain and lightheadedness; Denies: palpitations, irregular heart rhythm, edema or swelling of feet/ankles Resp: Denies: dyspnea, productive cough, non-productive cough, wheezing or pain on inspiration GI: Denies: abdominal pain, nausea or vomiting : Denies: flank pain, difficulty voiding, dysuria, urinary frequency, urinary urgency or urinary hesitancy Musc: Denies: neck pain, back pain, extremity pain, extremity swelling, joint pain, joint swelling, joint redness, joint warmth or limited range of motion Skin/Breast: Denies: rash, pruritus, erythema or skin tenderness Neuro: Denies: headache(s), numbness in extremities or weakness in extremities Psych: Denies: anxiety or depression PFS ED PFSH: Medical History Aortic insufficiency with aortic stenosis Atrial fibrillation CAD (coronary artery disease) COPD (chronic obstructive pulmonary disease) DVT (deep venous thrombosis) Pulmonary arterial hypertension Sleep apnea Surgical History H/O left knee surgery H/O right knee surgery H/O tubal ligation History of colonoscopy with polypectomy 2017 History of esophagogastroduodenoscopy (EGD) Status post laparoscopic cholecystectomy (03/06/21) Family History Other CAD (coronary artery disease) Social History Smoking and tobacco status: never smoked Second hand smoke exposure: No Smoking risk assessment/counseling performed?: No Alcohol intake: never Desire information about alcohol rehabilitation?: No Counseling given: No Desire information about substance/drug rehabilitation?: No Counseling given: No Lives independently: Yes Household members: none Marital status: / Current occupational status: retired History of recent travel: No Current gender identity: Female Physical Exam Const: COMMON NORMALS: no acute distress, average body habitus, patient oriented x3, no limitations, healthy appearing, alert and well nourished HENMT: COMMON NORMALS: normocephalic, atraumatic, hearing grossly normal bilaterally, external ears normal, EAC's normal, TM's normal bilaterally, Normal external nose present, Normal nasal mucous membranes and turbinates present, moist oral mucous membranes, oropharynx normal, dentition normal and gingiva normal HEAD & SCALP: normocephalic and atraumatic NOSE: Normal external nose present and Normal nasal mucous membranes and turbinates present EXTERNAL EAR: Yes external ears normal EXTERNAL AUDITORY CANAL: EAC's normal TYMPANIC MEMBRANE: TM's normal bilaterally Neck/C-Spine: COMMON NORMALS: full ROM, no lymphadenopathy, supple, no meningeal signs, no JVD, Thyroid normal and No carotid bruits THYROID: Thyroid normal Chest: COMMONS NORMALS: normal inspection of the chest, normal palpation of entire chest wall, normal inspection of the breasts and normal palpation of the breasts Breast/axilla inspection: Yes normal inspection of the breasts BREAST/AXILLA PALPATION: Yes normal palpation of the breasts Resp: COMMON NORMALS: normal respiratory effort, No retractions, No use of accessory muscles, clear to auscultation bilaterally and percussion normal AUSCULTATION: clear to auscultation bilaterally PERCUSSION: percussion normal Cardio: COMMON NORMALS: no JVD, regular rate, regular rhythm, S1 normal heart sound present, S2 normal heart sound present, No gallops present (Cardio), No clicks present (Cardio), No murmurs present (Cardio), No rub (Cardio) and Peripheral pulses 2+ throughout RATE: regular rate RHYTHM: regular rhythm HEART SOUNDS: S1 normal heart sound present and S2 normal heart sound present PERIPHERAL PULSES: Peripheral pulses 2+ throughout GI: COMMON NORMALS: Normal to inspection, nondistended, normoactive bowel sounds present, Soft to palpation, non-tender, No hepatosplenomegaly present, no masses and no bruits PALPATION: Yes Soft to palpation and Yes No hepatosplenomegaly present Back/Pelvis: COMMON NORMALS: thoracic and lumbar spine normal to inspection, no thoracic nor lumbar tenderness, thoraco-lumbar ROM normal and straight leg raise negative bilaterally Extremity: COMMON NORMALS: normal to inspection, full ROM, capillary refill normal, no joint enlargement, no clubbing, cyanosis or edema, no calf tenderness and no pedal edema Neuro: COMMON NORMALS: patient oriented x3 SENSORIUM/ORIENTATION: Yes alert MENINGEAL SIGNS: Yes no meningeal signs Course Reevaluation(s): Reevaluation #1: Patient describes to fatigue and chest pressure. Patient's heart rate down to 40 significant sinus bradycardia most likely related to beta-ti she has been started. Will give patient 1 mg of glucagon and evaluate and monitor heart rate. And blood pressure. Time: 14:26 Consultations: Consultation #1: I discussed at length with Dr. Mcclain cardiology. He request patient be admitted to hospitalist service. He agrees the patient will need a pacemaker. Patient is to get 1 mg atropine IV push and subsequently placed on dopamine titratable drip. Dr. Morton will see patient as a eyewear consultant. Time: 16:30 Consultation #2: I did discuss at length with Dr. Gentile hospitalist. He is agreeable to admit the patient to the floor continue monitoring. He will see patient write additional Time: 16:41 Vital Signs: Vital signs: Vital Signs Temperature 98.5 F 05/30/21 14:18 Pulse Rate 35 L 05/30/21 16:08 Respiratory Rate 17 05/30/21 16:08 Blood Pressure 146/58 05/30/21 16:08 Pulse Oximetry 96 05/30/21 16:08 MDM - General Adult MDM Narrative: Medical decision making narrative: This patient is a 75-year-old female who presents to the emergency department with complaint of chest pain x1 month. Patient states that she was evaluated by cardiology and was placed on metoprolol and has a follow-up appointment within 3 weeks due to her hypertension. Patient states that she has noticed that her blood pressure is better but her heart rate gets down in the low 50s 40s. And at night she feels fatigued but cannot really sleep. Patient does not describe cardiac type chest pain. But does describe side effects of beta-ti medication. Patient states has a history of hypertension was previously on lisinopril but they had stopped that medication. Patient describes to fatigue and chest pressure. Patient's heart rate down to 40 significant sinus bradycardia most likely related to beta-ti she has been started. Will give patient 1 mg of glucagon and evaluate and monitor heart rate. And blood pressure. I discussed at length with Dr. Mcclain cardiology. He request patient be admitted to hospitalist service. He agrees the patient will need a pacemaker. Patient is to get 1 mg atropine IV push and subsequently placed on dopamine titratable drip. Dr. Morton will see patient as a eyewear consultant. I did discuss at length with Dr. Gentile hospitalist. He is agreeable to admit the patient to the floor continue monitoring. He will see patient write additional Lab Data: Labs: Lab Results 05/30/21 05/30/21 05/30/21 Range/Units 14:28 14:28 14:28 WBC 7.6 (4.0-10.0) 10^3/ uL RBC 4.70 (4.1-5.3) 10^6/u L Hgb 13.8 (11.5-15.3) g/dL Hct 42.6 (37.0-47.0) % MCV 90.6 (81-99) fL MCH 29.4 (28.0-34.0) pg MCHC 32.4 (30.0-36.0) g/dL RDW 14.1 (12.1-15.1) % Plt Count 179 (130-400) 10^3/c mm MPV 11.8 H (7.4-10.4) fL Neut % (Auto) 55.2 % Lymph % (Auto) 32.6 % [place] % (Auto) 8.4 % Eos % (Auto) 2.5 % Baso % (Auto) 0.8 % Neut # (Auto) 4.20 (1.8-7.7) 10^3/u L Lymph # (Auto) 2.5 (0.8-4.8) 10^3/u L [place] # (Auto) 0.6 (0.2-0.9) 10^3/u L Eos # (Auto) 0.2 (0.0-0.8) 10^3/u L Baso # (Auto) 0.1 (0.0-0.1) 10^3/u L Nucleated RBC % (a uto) 0 % Nucleated RBCs # 0.0 /100WBC PT 16.90 H (12.1-14.9) SECO NDS INR 1.34 H (0.8-1.2) APTT 35.1 (23.9-36.7) SECO NDS Sodium 138 (136-145) mmol/L Potassium 4.2 (3.5-5.1) mmol/L Chloride 104 (98-107) mmol/L Carbon Dioxide 23 (22-29) mmol/L Anion Gap 15.2 (5-19) BUN 23 (8-23) mg/dL Creatinine 0.7 (0.5-0.9) mg/dL GFR Calculation Not Reportable Glucose 98 (65-115) mg/dL Calculated Osmolal ity 290 (285-295) mOsm/k g Calcium 8.6 (8.5-10.5) mg/dL Total Bilirubin 0.7 (0.15-1.2) mg/dL AST 84 H (0-32) U/L ALT 95 H (0-33) U/L Alkaline Phosphata se 68 (35-105) IU/L Troponin T Baselin e (0-10) ng/L Total Protein 6.2 L (6.6-8.7) g/dL Albumin 4.0 (3.5-5.2) g/dL Globulin 2.2 (1.3-4.6) g/dL Urine Color (Yellow) Urine Appearance (CLEAR) Urine pH (5-7) Ur Specific Gravit y (1.005-1.030) Urine Protein (Negative) Urine Glucose (UA) (Normal) Urine Ketones (Negative) Urine Blood (Negative) Urine Nitrate (Negative) Urine Bilirubin (Negative) Urine Urobilinogen (Negative) mg/dL Ur Leukocyte Jessika ase (Negative) Urine RBC (0-2) /hpf Urine WBC (0-5) /hpf Ur Squamous Epith Cells (0-5) /hpf Amorphous Sediment Urine Bacteria (NONE) /hpf Urine Mucus /hpf 05/30/21 05/30/21 Range/Units 14:28 15:08 WBC (4.0-10.0) 10^3/ uL RBC (4.1-5.3) 10^6/u L Hgb (11.5-15.3) g/dL Hct (37.0-47.0) % MCV (81-99) fL MCH (28.0-34.0) pg MCHC (30.0-36.0) g/dL RDW (12.1-15.1) % Plt Count (130-400) 10^3/c mm MPV (7.4-10.4) fL Neut % (Auto) % Lymph % (Auto) % [place] % (Auto) % Eos % (Auto) % Baso % (Auto) % Neut # (Auto) (1.8-7.7) 10^3/u L Lymph # (Auto) (0.8-4.8) 10^3/u L [place] # (Auto) (0.2-0.9) 10^3/u L Eos # (Auto) (0.0-0.8) 10^3/u L Baso # (Auto) (0.0-0.1) 10^3/u L Nucleated RBC % (a uto) % Nucleated RBCs # /100WBC PT (12.1-14.9) SECO NDS INR (0.8-1.2) APTT (23.9-36.7) SECO NDS Sodium (136-145) mmol/L Potassium (3.5-5.1) mmol/L Chloride (98-107) mmol/L Carbon Dioxide (22-29) mmol/L Anion Gap (5-19) BUN (8-23) mg/dL Creatinine (0.5-0.9) mg/dL GFR Calculation Glucose (65-115) mg/dL Calculated Osmolal ity (285-295) mOsm/k g Calcium (8.5-10.5) mg/dL Total Bilirubin (0.15-1.2) mg/dL AST (0-32) U/L ALT (0-33) U/L Alkaline Phosphata se (35-105) IU/L Troponin T Baselin e 20 H (0-10) ng/L Total Protein (6.6-8.7) g/dL Albumin (3.5-5.2) g/dL Globulin (1.3-4.6) g/dL Urine Color Yellow (Yellow) Urine Appearance Sl hazy (CLEAR) Urine pH 5 (5-7) Ur Specific Gravit y 1.020 (1.005-1.030) Urine Protein Neg (Negative) Urine Glucose (UA) Norm (Normal) Urine Ketones Negative (Negative) Urine Blood 2+ H (Negative) Urine Nitrate Negative (Negative) Urine Bilirubin Neg (Negative) Urine Urobilinogen Norm (Negative) mg/dL Ur Leukocyte Jessika ase 1+ H (Negative) Urine RBC 0-4 H (0-2) /hpf Urine WBC 15-25 H (0-5) /hpf Ur Squamous Epith Cells 5-10 H (0-5) /hpf Amorphous Sediment Not Reportable Urine Bacteria Trace (NONE) /hpf Urine Mucus Trace /hpf Imaging Data^: CXR: Attestation: I personally reviewed and interpreted this imaging study as follows: Radiologist's impression: Impression: Atherosclerosis and cardiomegaly. EKG Data^: EKG 1: Attestation: I personally reviewed and interpreted this EKG as follows: EKG interpretation date: 05/30/21 EKG interpretation time: 14:13 Prior EKG tracings: not available for review Interpretation: Sinus bradycardia with sinus arrhythmia with a first-degree AV block. Heart rate 43 otherwise nondiagnostic EKG. Computer generated interpretation: Chest X-Ray 05/30/21 14:00 Impression: Atherosclerosis and cardiomegaly. Discharge Plan Discharge Patient Disposition: Admitted As Inpatient Clinical Impression: Symptomatic bradycardia, Atrial fibrillation, Hypertension, Pulmonary arterial hypertension, Chest pain Condition: Stable Coding Level of Care Code ED [employer] Police Officer for Chg Fwd Exam Comprehensive
--- NOTE | 2021-05-30 14:32 | PC.NURSE ---
Has a C-PAP that she does not wear.
[2021-05-30 14:54] LABS: Basophils # 0.1 10^3/uL (0.0-0.1); Basophils % 0.8 %; Eosinophils # 0.2 10^3/uL (0.0-0.8); Eosinophils % 2.5 %; Hematocrit 42.6 % (37.0-47.0); Hemoglobin 13.8 g/dL (11.5-15.3); Lymphocytes # 2.5 10^3/uL (0.8-4.8); Lymphocytes % 32.6 %; Mean Corpuscular HGB Conc 32.4 g/dL (30.0-36.0); Mean Corpuscular Hemoglobin 29.4 pg (28.0-34.0); Mean Corpuscular Volume 90.6 fL (81-99); Mean Platelet Volume 11.8 fL (7.4-10.4); Monocytes # 0.6 10^3/uL (0.2-0.9); Monocytes % 8.4 %; Neutrophils % 55.2 %; Nucleated Red Blood Cells % 0 %; Platelet Count 179 10^3/cmm (130-400); Red Cell Distribution Width 14.1 % (12.1-15.1); White Blood Count 7.6 10^3/uL (4.0-10.0)
[2021-05-30 15:00] LABS: Troponin(5th) Baseline 20 ng/L (0-10)
[2021-05-30 15:02] LABS: Alanine Aminotransferase 95 U/L (0-33); Alkaline Phosphatase 68 IU/L (35-105); Anion Gap 15.2 (5-19); Aspartate Amino Transferase 84 U/L (0-32); Blood Urea Nitrogen 23 mg/dL (8-23); Calcium 8.6 mg/dL (8.5-10.5); Carbon Dioxide 23 mmol/L (22-29); Chloride 104 mmol/L (98-107); Creatinine Clr Calc Pharmacy 70.8418; Globulin 2.2 g/dL (1.3-4.6); Glucose 98 mg/dL (65-115); Osmolality Calculated 290 mOsm/kg (285-295); Potassium 4.2 mmol/L (3.5-5.1); Sodium 138 mmol/L (136-145); Total Bilirubin 0.7 mg/dL (0.15-1.2); Total Protein 6.2 g/dL (6.6-8.7)
[2021-05-30 15:07] LABS: INR 1.34 (0.8-1.2)
[2021-05-30 15:08] LABS: Partial Thromboplastin Time 35.1 SECONDS (23.9-36.7)
--- NOTE | 2021-05-30 16:00 | ECG_ITS ---
[facility] Test Date: 2021-05-30 Pat Name: Lelia Mcguire Department: Room: Gender: Female Uranium Processing Supervisor: : [id number] Requested By: Derik Norman Order Number: [id number] Khushbu MD: Nhan Perrin M.D. Measurements Intervals Elmer Rate: 38 P: OK: QRS: 263 QRSD: 133 T: 71 QT: 530 QTc: 425 Interpretive Statements Atrial fibrillation MARKED RIGHT AXIS DEVIATION [QRS AXIS > 100] RIGHT BUNDLE BRANCH BLOCK [120+ ms QRS DURATION, UPRIGHT V1, 40+ ms S IN I/aVL/V4/V5/V6] POSSIBLE ANTERIOR MYOCARDIAL INFARCTION [30 ms Q WAVE IN V3/V4, OR R < 0.2 mV IN V4], PROBABLY OLD Compared to ECG 05/30/2021 14:13:06 Right-axis deviation now present Right bundle-branch block now present Myocardial infarct finding now present Sinus bradycardia no longer present Sinus arrhythmia no longer present First degree AV block no longer present Electronically Signed On 05-30-2021 23:47:55 CDT by Nhan Perrin M.D. [email or web address]
--- NOTE | 2021-05-30 16:10 | PC.NURSE ---
Informed Dr Norman of low heart rate
[2021-05-30 16:28] LABS: Add Urine Microscopic? YES; Bilirubin Urine Neg (Negative); Blood Urine 2+ (Negative); Glucose Urine UA Norm (Normal); Ketones Urine Negative (Negative); Leukocyte Esterase Urine 1+ (Negative); Nitrate Urine Negative (Negative); Protein Urine Neg (Negative); Urine Appearance SL Hazy (CLEAR); Urine Color Yellow (Yellow); Urobilinogen Urine Norm (Negative); pH Urine 5 (5-7)
[2021-05-30 16:29] LABS: RBC Urine 0-4 /hpf (0-2)
[2021-05-30 16:30] LABS: WBC Urine 15-25 /hpf (0-5)
[2021-05-30 16:31] LABS: Add Urine Culture? Yes; Bacteria Urine TRACE /hpf; Mucus Urine TRACE /hpf
[2021-05-30] MEDS: atropine 0.1 mg/mL Syr 10 mL 1 MG IVP (16:49)
[2021-05-30] MEDS: DOPamine drip 400 MG/250 ML PREMIX 18.71 MG IV (16:55)
--- NOTE | 2021-05-30 17:49 | P.CONIM_ITS ---
Providers/Reason For Consult Consulting Physician/Specialty*: Cardiology Reason for Consult*: Symptomatic bradycardia Primary Care Provider: Brigitte Mccoy NP History of Present Illness History of Present Illness Lelia Mcguire is a 75 year old female past medical history significant for history of chronic atrial fibrillation, DVT, aortic stenosis, pulmonary arterial hypertension, who claims allergy to contrast came in with shortness of breath heaviness in the chest dizziness going on for last few days. She was noted to be bradycardic with heart rate into 30s while the underlying rhythm was atrial fibrillation. Recently her medicines were optimized. She is on small dose of beta-ti metoprolol 12.5 twice daily. She appeared to be stable vital lopez. When I examined the patient she denies chest pain however she is not sure whether she experiences chest pain or it was heaviness due to slow ventricular response. Review of Systems General: Reports: 10 or more systems reviewed and unremarkable except in HPI and below Const: Reports: fatigue; Denies: fever(s), chills or body aches Eyes: Denies: change in vision or blurry vision ENMT: Denies: throat pain, hoarseness or mouth pain Card: Reports: chest pain and lightheadedness; Denies: palpitations, irregular heart rhythm, edema or swelling of feet/ankles Resp: Denies: dyspnea, productive cough, non-productive cough, wheezing or pain on inspiration GI: Denies: abdominal pain, nausea or vomiting : Denies: flank pain, difficulty voiding, dysuria, urinary frequency, urinary urgency or urinary hesitancy Musc: Denies: neck pain, back pain, extremity pain, extremity swelling, joint pain, joint swelling, joint redness, joint warmth or limited range of motion Skin/Breast: Denies: rash, pruritus, erythema or skin tenderness Neuro: Denies: headache(s), numbness in extremities or weakness in extremities Psych: Denies: anxiety or depression Meds/Allergies Home Medications and Allergies Home Medications Medication Instructions Recorded Confirmed Last Taken Type Xarelto 20 mg PO DAILY 12/16/19 05/30/21 05/30/21 History budesonide-formoterol HFA 80 2 puff INHALATION BID #10.2 g 04/23/21 05/30/21 Unknown Rx mcg-4.5 mcg/actuation aerosol inhaler cholecalciferol (vitamin D3) 100 100 mcg PO DAILY 05/23/21 05/30/21 05/29/21 History mcg (4,000 unit) capsule furosemide 20 mg tablet 40 mg PO DAILY tab 05/23/21 05/30/21 05/30/21 History metoprolol tartrate 25 mg tablet 12.5 mg PO BID #180 tab 05/23/21 05/30/21 05/30/21 Rx potassium chloride 10 mEq 40 meq PO DAILY tab 05/23/21 05/30/21 05/30/21 History tablet,extended release clonidine HCl See Rx Instructions .ROUTE .COMPLEX 05/30/21 05/30/21 Unknown History cyanocobalamin (vitamin B-12) 1,000 mcg PO DAILY 05/30/21 05/30/21 Unknown History [Vitamin B-12] denosumab [Prolia] See Rx Instructions .ROUTE .COMPLEX 05/30/21 05/30/21 Unknown History lisinopril 2.5 mg PO DAILY 05/30/21 05/30/21 Unknown History Allergies Allergy/AdvReac Type Severity Reaction Status Date / Time iodine Allergy Unknown ALGY-Bliste Verified 05/30/21 14:01 r alcohol Allergy ALGY-Hives Verified 05/30/21 14:01 aloe vera Allergy ALGY-Bliste Verified 05/30/21 14:01 r atenolol Allergy ALGY-Swell Verified 05/30/21 14:01 Lip/Tongue/Throat diphenhydramine Allergy ADR-Itching Verified 05/30/21 14:01 [From Benadryl] epinephrine Allergy ADR/ALGY-Pa Verified 05/30/21 14:01 lpitations latex Allergy ALGY-Rash Verified 05/30/21 14:01 numerous food allergies Allergy Severe ALGY-Anaphy Uncoded 05/30/21 19:43 laxis antibacterial soap Allergy Unknown Uncoded 05/30/21 14:01 contrast dye Allergy ALGY-Difficulty Uncoded 05/30/21 14:01 Breathing Current Medications Current Medications Generic Name Dose Route Start Last Admin Trade Name Freq PRN Reason Stop Dose Admin Dopamine HCl/Dextrose 400 mg in 250 mls @ 18.711 mls/hr 05/30/21 16:30 05/30/21 16:55 Intropin Drip IV 5 mcg/kg/min CONT RAPHAEL 18.71 mls/hr Administration Protocol 5 MCG/KG/MIN PFSH Acute PFSH: Medical History Aortic insufficiency with aortic stenosis Atrial fibrillation CAD (coronary artery disease) COPD (chronic obstructive pulmonary disease) DVT (deep venous thrombosis) Pulmonary arterial hypertension Sleep apnea Surgical History H/O left knee surgery H/O right knee surgery H/O tubal ligation History of colonoscopy with polypectomy 2017 History of esophagogastroduodenoscopy (EGD) Status post laparoscopic cholecystectomy (03/06/21) Family History Other CAD (coronary artery disease) Social History Smoking and tobacco status: never smoked Second hand smoke exposure: No Smoking risk assessment/counseling performed?: No Alcohol intake: never Desire information about alcohol rehabilitation?: No Counseling given: No Desire information about substance/drug rehabilitation?: No Counseling given: No Lives independently: Yes Household members: none Marital status: / Current occupational status: retired History of recent travel: No Current gender identity: Female Dietary Habits: Current diet type/program: low salt Caffeine: Yes Caffeine intake frequency: coffee Number of coffee servings: 4 Vitals/I&O/Wt Last Vital Signs Temp 98.5 F 05/30/21 14:18 Pulse 35 L 05/30/21 16:08 Resp 17 05/30/21 16:08 BP 146/58 05/30/21 16:08 Pulse Ox 96 05/30/21 16:08 Weight last 48 hrs Weight 220 lb Physical Exam Narrative: EXAM NARRATIVE: GENERAL: Patient is alert, awake and oriented x3. NECK: No jugular vein distension. HEENT: No cyanosis. No icterus. No pallor. HEART: Irregularly irregular S1 and S2. LUNGS: Clear to auscultate bilaterally. ABDOMEN: Soft, nontender and nondistended. Positive bowel sounds. No guarding, rebound or tenderness. CENTRAL NERVOUS SYSTEM: Grossly nonfocal. EXTREMITIES: Lower extremities without edema bilaterally. A&P Assessment and plan (1) Symptomatic bradycardia: Most likely patient has sick sinus syndrome, she appeared to be stable vital lopez, advised holding beta-ti, administering atropine and starting patient on dopamine. Most likely she will be getting permanent pacemaker. We will assess her over next 24-hour to rule out reversible causes of bradycardia. Status: Acute (2) Atrial fibrillation: Continue to monitor patient is slow ventricle response Status: Acute (3) Chest pain: Will monitor her with troponin EKG did not suggest ischemic changes Status: Acute (4) Aortic insufficiency with aortic stenosis: We will further assess her by reviewing echo Status: Acute (5) DVT (deep venous thrombosis): Patient is on Xarelto for now we will discontinue Xarelto and switch her to Lovenox Status: Acute Consult Attestations Medical Necessity Statement: Patient most likely will cross 2 midnights for above defined care Coding Level of Care Code New Pt Acute Field Clinical Engineer for g Fwd Patient Type New Medical Decision Making Moderate Complexity Diagnoses Symptomatic bradycardia R00.1 Atrial fibrillation I48.91 Chest pain R07.9 Aortic insufficiency with aortic stenosis I35.2 DVT (deep venous thrombosis) I82.409
[2021-05-30 18:21] LABS: Troponin 5 2HR 16.44 ng/L (0-10); Troponin 5 2HR Delta -3.56 ABS# (0-10)
--- NOTE | 2021-05-30 19:15 | PM.HP ---
Providers/Chief Complaint Admitting Physician: Jaci Gentile MD Primary Care Provider: Brigitte Mccoy NP Chief Complaint: CHEST PAIN History of Present Illness Lelia Mcguire is a 75 year old female With past medical history of atrial fibrillation presented to the ER with complaints of chest pain for 1 month with worsening symptoms for the last week. She also noted feeling fatigued. Was recently started on a beta-ti took for short period. In the ER she was noted to have a low heart rate. She has been started on dopamine drip. Review of Systems General: Reports: 10 or more systems reviewed and unremarkable except in HPI and below Const: Denies: fever(s) or chills Eyes: Denies: change in vision ENMT: Denies: throat pain Card: Reports: chest pain and irregular heart rhythm; Denies: palpitations Resp: Denies: dyspnea or productive cough GI: Denies: abdominal pain or nausea : Denies: flank pain Musc: Reports: joint pain Skin/Breast: Denies: rash or pruritus Neuro: Denies: headache(s) or numbness in extremities Psych: Denies: anxiety Medications/Allergies Home Medications Medication Instructions Recorded Confirmed Last Taken Type Xarelto 20 mg PO DAILY 12/16/19 05/30/21 05/30/21 History budesonide-formoterol HFA 80 2 puff INHALATION BID #10.2 g 04/23/21 05/30/21 Unknown Rx mcg-4.5 mcg/actuation aerosol inhaler cholecalciferol (vitamin D3) 100 100 mcg PO DAILY 05/23/21 05/30/21 05/29/21 History mcg (4,000 unit) capsule furosemide 20 mg tablet 40 mg PO DAILY tab 05/23/21 05/30/21 05/30/21 History metoprolol tartrate 25 mg tablet 12.5 mg PO BID #180 tab 05/23/21 05/30/21 05/30/21 Rx potassium chloride 10 mEq 40 meq PO DAILY tab 05/23/21 05/30/21 05/30/21 History tablet,extended release clonidine HCl See Rx Instructions .ROUTE .COMPLEX 05/30/21 05/30/21 Unknown History cyanocobalamin (vitamin B-12) 1,000 mcg PO DAILY 05/30/21 05/30/21 Unknown History [Vitamin B-12] denosumab [Prolia] See Rx Instructions .ROUTE .COMPLEX 05/30/21 05/30/21 Unknown History lisinopril 2.5 mg PO DAILY 05/30/21 05/30/21 Unknown History Allergies Allergy/AdvReac Type Severity Reaction Status Date / Time iodine Allergy Unknown ALGY-Bliste Verified 05/30/21 14:01 r alcohol Allergy ALGY-Hives Verified 05/30/21 14:01 aloe vera Allergy ALGY-Bliste Verified 05/30/21 14:01 r atenolol Allergy ALGY-Swell Verified 05/30/21 14:01 Lip/Tongue/Throat diphenhydramine Allergy ADR-Itching Verified 05/30/21 14:01 [From Benadryl] epinephrine Allergy ADR/ALGY-Pa Verified 05/30/21 14:01 lpitations latex Allergy ALGY-Rash Verified 05/30/21 14:01 antibacterial soap Allergy Unknown Uncoded 05/30/21 14:01 contrast dye Allergy ALGY-Difficulty Uncoded 05/30/21 14:01 Breathing PFSH Acute PFSH: Medical History Aortic insufficiency with aortic stenosis Atrial fibrillation CAD (coronary artery disease) COPD (chronic obstructive pulmonary disease) DVT (deep venous thrombosis) Pulmonary arterial hypertension Sleep apnea Surgical History H/O left knee surgery H/O right knee surgery H/O tubal ligation History of colonoscopy with polypectomy 2016 History of esophagogastroduodenoscopy (EGD) Status post laparoscopic cholecystectomy (03/06/21) Family History Other CAD (coronary artery disease) Social History Smoking and tobacco status: never smoked Second hand smoke exposure: No Smoking risk assessment/counseling performed?: No Alcohol intake: never Desire information about alcohol rehabilitation?: No Counseling given: No Desire information about substance/drug rehabilitation?: No Counseling given: No Lives independently: Yes Household members: none Marital status: / Current occupational status: retired History of recent travel: No Current gender identity: Female Vitals/I&O/Wt Last Vital Signs Temp 98.5 F 05/30/21 14:18 Pulse 51 L 05/30/21 18:39 Resp 26 H 05/30/21 18:39 BP 142/70 05/30/21 18:39 Pulse Ox 92 05/30/21 18:39 Weight last 48 hrs Weight 220 lb Physical Exam Const: GENERAL APPEARANCE: cooperative Resp: COMMON NORMALS: normal respiratory effort and No retractions Cardio: RATE: bradycardic RHYTHM: abnormal rhythm GI: COMMON NORMALS: Soft to palpation and non-tender Neuro: COMMON NORMALS: patient oriented x3 and CN's II-XII intact bilaterally Psych: COMMON NORMALS: mental status grossly normal and Normal thought process present Data : 05/30/21 14:28 05/30/21 14:28 A&P Assessment and plan (1) Symptomatic bradycardia: Status: Acute (2) Chest pain: Status: Acute (3) Atrial fibrillation: Status: Acute (4) Anticoagulation adequate with anticoagulant therapy: Status: Acute (5) Transaminitis: Status: Acute (6) Hematuria: Status: Acute Additional A&P Information #bradycardia --admit to cardiac stepdown --labs reviewed --add Mg, TSH --keep on monitor --dopamine gtt started in ED --cards consultation #chest pain --serial troponin #afib --bradycardic, hold anticoagulation #transaminitis --trend, consider uS #hematuria --no flank pain,hold anticoagulation Attestations Medical Necessity Statement*: Lelia Mcguire's hospital stay will require greater than 2 midnights for bradycardia Coding Level of Care Code Acute Binding Folder Machine for [facility] Fwd Diagnoses Symptomatic bradycardia R00.1 Chest pain R07.9 Atrial fibrillation I48.91 Anticoagulation adequate with anticoagulant therapy Z79.01 Transaminitis R74.01 Hematuria R31.9
--- NOTE | 2021-05-30 19:30 | PC.NURSE ---
Received bedside report from Karin QUIROZ. Patient is A & O, has no C/O of pain or other needs at this time. Patient's HR is low in the 40's but has no C/O of chest pain or AMS.
--- NOTE | 2021-05-30 19:34 | PC.NURSE ---
received into room 111-2 from er.report received.pt is alert and oriented x4.sb on monitor.current hr 50's....afib on monitor.dopamine drip at 5 mcg/kg/min.infusing .oriented to room environment.instructed to notify staff for any cp,sob,or for any concerns at all.pt verb understanding of instructions.
--- NOTE | 2021-05-30 20:00 | ECG_ITS ---
[facility] Test Date: 2021-05-30 Pat Name: Lelia Mcguire Department: Room: 111 Gender: Female Barrel Header: QUEENIE: 1945 Requested By: Derik Norman Order Number: [id number] Khushbu MD: Nhan Perrin M.D. Measurements Intervals [place] Rate: 46 P: MN: QRS: 106 QRSD: 93 T: 62 QT: 494 QTc: 436 Interpretive Statements ATRIAL FIBRILLATION WITH SLOW VENTRICULAR RESPONSE MARKED RIGHT AXIS DEVIATION [QRS AXIS > 100] MODERATE ST DEPRESSION [0.05+ mV ST DEPRESSION] Compared to ECG 05/30/2021 16:21:47 ST (T wave) deviation now present Right bundle-branch block no longer present Myocardial infarct finding no longer present Electronically Signed On 05-30-2021 23:44:41 CDT by Nhan Perrin M.D. [id number]
[2021-05-30 20:01] LABS: Procalcitonin 0.04 ng/mL (0-0.5); Thyroid Stimulating Hormone 3.28 uIU/mL (0.27-4.20)
--- NOTE | 2021-05-30 20:03 | PC.NURSE ---
Bedside report received from Karin QUIROZ. Patient is A & O x4, No C/O of pain or other needs at this time.
[2021-05-30 20:12] LABS: Magnesium 2.2 mg/dL (1.7-2.3)
[2021-05-31] VITALS (60 sets, daily range): BP systolic 96–153; BP diastolic 45–85; PULSE 39–80; RESP 11–31; TEMP 36.4–36.7; O2SAT 73–97
--- NOTE | 2021-05-31 02:37 | PC.NURSE ---
Late Entry 05/30/21 @ 2300 Patient's HR has been in the 40's all night. Per Dr. Carey place pacer pads by patients bedside, if systolic BP goes below 100 and HR goes to 30 administer Atropine. Patient has no C/O of chest pain, is A & O.
[2021-05-31] MEDS: DOPamine drip 400 MG/250 ML PREMIX 18.71 MG IV ×2 (05:56→21:11)
[2021-05-31 06:24] LABS: INR 1.27 (0.8-1.2)
[2021-05-31 06:43] LABS: Alanine Aminotransferase 75 U/L (0-33); Albumin Level 3.6 g/dL (3.5-5.2); Alkaline Phosphatase 58 IU/L (35-105); Anion Gap 13.9 (5-19); Aspartate Amino Transferase 57 U/L (0-32); Blood Urea Nitrogen 16 mg/dL (8-23); Calcium 8.4 mg/dL (8.5-10.5); Carbon Dioxide 23 mmol/L (22-29); Chloride 105 mmol/L (98-107); Chol HDL Ratio 3.23 mg/dL (0.0-4.40); Cholesterol 139 mg/dL (0-200); Creatinine Clr Calc Pharmacy 70.8418; Globulin 2.5 g/dL (1.3-4.6); Glucose 117 mg/dL (65-115); HDL Cholesterol 43 mg/dL (60-100); LDL Cholesterol Calculated 85 mg/dL (50-129); LDL HDL Ratio 1.98 RATIO (0.00-3.22); NT Pro B Type Natriuretic Pept 1504 pg/mL (0-125); Osmolality Calculated 288 mOsm/kg (285-295); Potassium 3.9 mmol/L (3.5-5.1); Sodium 138 mmol/L (136-145); Total Bilirubin 0.9 mg/dL (0.15-1.2); Total Protein 6.1 g/dL (6.6-8.7); Triglycerides 54 mg/dL (0-150)
[2021-05-31] MEDS: lisinopril 2.5 mg Tablet PO (09:06)
[2021-05-31] MEDS: enoxaparin 40 mg/0.4 mL Syringe SUBCUT (09:06)
--- NOTE | 2021-05-31 10:39 | PC.NUTR ---
Nutrition note: Notified by dietary staff that pt c/o receiving foods to which she is allergic. Dietary staff apologized, as she was not aware of these allergies. This RD reviewed chart and noted multiple food allergies in allergy list. Upon clicking, able to see allergies to seafood, gluten, berries, citrus, etc. Spoke with nurse and requested each allergy to be entered separately so that dietary staff can see them more readily, and for etc to be listed out explicitly. Nurse stated she will do so. Notified dietary staff of 4 known food allergies at this time.
--- NOTE | 2021-05-31 14:17 | PM.PN ---
Subjective Subjective: Interval history: 75-year-old female with history of atrial fibrillation presented to ER with complaint of chest pain as well as bradycardia. Given atropine and on dopamine drip. Reported mild chest pressure this morning. Heart rate continues to be slow. Medications: Reviewed: Yes Vitals/I&O/Wt Last Vital Signs Temp 97.9 F 05/31/21 12:32 Pulse 43 L 05/31/21 12:32 Resp 18 05/31/21 12:32 BP 153/50 05/31/21 12:32 Pulse Ox 96 05/31/21 12:32 05/30/21 05/31/21 05/31/21 22:59 06:59 14:59 Intake Total 483.542 / 483.542 Output Total 200 / 200 300 / 300 Balance -200 / -200 483.542 / 283.542 -300 / -300 Weight last 48 hrs Weight 220 lb Physical Exam Const: COMMON NORMALS: no acute distress, average body habitus and patient oriented x3 Chest: COMMONS NORMALS: normal inspection of the chest Resp: COMMON NORMALS: normal respiratory effort and No retractions Cardio: RATE: bradycardic GI: COMMON NORMALS: Soft to palpation and non-tender PALPATION: Yes Soft to palpation Neuro: COMMON NORMALS: patient oriented x3 Data : 05/30/21 14:28 05/31/21 05:36 A&P Assessment and plan (1) Atrial fibrillation: Status: Acute (2) Anticoagulation adequate with anticoagulant therapy: Status: Acute (3) Chest pain: Status: Acute (4) Symptomatic bradycardia: Status: Acute (5) Transaminitis: Status: Acute Additional A&P Information #bradycardia/sick sinus syndrome --TSH, Mg ok --keep on monitor --dopamine gtt started in ED --ECHO --Cardiology consultation, possible PPM #chest pain --monitor #afib --bradycardic, hold anticoagulation #transaminitis --trend, consider US #hematuria --no flank pain,hold anticoagulation Attestations Medical Necessity Statement*: Lelia Mario Dobbs's hospital stay will require greater than 2 midnights for bradycardia Coding Level of Care Code Acute Automatic Lehr Operator for [facility] Fwd Diagnoses Atrial fibrillation I48.91 Anticoagulation adequate with anticoagulant therapy Z79.01 Chest pain R07.9 Symptomatic bradycardia R00.1 Transaminitis R74.01
--- NOTE | 2021-05-31 18:08 | PM.PN ---
Subjective Subjective: Interval history: Heart rate dips down into 30s most of the time it stays around 50 with dopamine on board. Denies any complaint except she does not like the food here. She denies chest pain or dizziness. Medications: Reviewed: Yes Vitals/I&O/Wt Last Vital Signs Temp 97.9 F 05/31/21 12:32 Pulse 42 L 05/31/21 15:10 Resp 18 05/31/21 15:10 BP 126/76 05/31/21 15:10 Pulse Ox 88 L 05/31/21 15:10 05/31/21 05/31/21 05/31/21 06:59 14:59 22:59 Intake Total 483.542 / 483.542 410 / 410 Output Total 300 / 300 Balance 483.542 / 283.542 -300 / -300 410 / 110 Weight last 48 hrs Weight 220 lb Physical Exam Narrative: EXAM NARRATIVE: GENERAL: Patient is alert, awake and oriented x3. NECK: No jugular vein distension. HEENT: No cyanosis. No icterus. No pallor. HEART: Irregularly irregular S1 and S2. LUNGS: Clear to auscultate bilaterally. ABDOMEN: Soft, nontender and nondistended. Positive bowel sounds. No guarding, rebound or tenderness. CENTRAL NERVOUS SYSTEM: Grossly nonfocal. EXTREMITIES: Lower extremities without edema bilaterally. Data : 05/30/21 14:28 05/31/21 05:36 A&P Assessment and plan (1) Symptomatic bradycardia: Patient continues to be bradycardic heart rate in between 30s to 50 on dopamine. No significant pause noted. 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 Continue holding rivaroxaban. Status: Acute (2) Atrial fibrillation: Continue to monitor patient is slow ventricle response, continue dopamine for bradycardia, rivaroxaban is on hold we will cover patient with Lovenox. Hold evening dose of Lovenox on the Thursday since patient most likely will get permanent pacemaker on Thursday morning with Dr. Nguyen. Status: Acute (3) Chest pain: Denies any chest pain. Status: Acute (4) Aortic insufficiency with aortic stenosis: Stable. Status: Acute (5) DVT (deep venous thrombosis): Continue bridge with Lovenox since rivaroxaban is on hold for now bridged with Lovenox Status: Acute Attestations Medical Necessity Statement*: Patient require continuation hospitalization for above defined care Coding Level of Care Code Established Pt Acute Audio Production Manager for [facility] Fwd Patient Type Established History Detailed Exam Detailed Medical Decision Making Moderate Complexity Diagnoses Symptomatic bradycardia R00.1 Atrial fibrillation I48.91 Chest pain R07.9 Aortic insufficiency with aortic stenosis I35.2 DVT (deep venous thrombosis) I82.409
--- NOTE | 2021-05-31 20:15 | PC.NURSE ---
Dr. Morton ordered last dose of Lovenox to be given Thursday morning due to pacemaker procedure Thursday.
[2021-05-31] MEDS: enoxaparin 100 mg/mL Syringe SUBCUT (20:47)
[2021-06-01] VITALS (15 sets, daily range): BP systolic 116–176; BP diastolic 47–71; PULSE 45–88; RESP 14–20; TEMP 36.4–37.2; O2SAT 92–98
--- NOTE | 2021-06-01 00:16 | PC.NURSE ---
Patient has no complaints at this time. VSS. Heart rate 40s-50s. Dopamine drip running per order. Will monitor.
--- NOTE | 2021-06-01 04:32 | PC.NURSE ---
Around 0430: Patients B/P 162/80. Notified Dr. Carey Hospitalist. Orders received, see JAN.
[2021-06-01] MEDS: amlodipine 5 mg Tablet PO (04:55)
[2021-06-01 06:06] LABS: INR 1.23 (0.8-1.2)
[2021-06-01 06:10] LABS: Alanine Aminotransferase 55 U/L (0-33); Albumin Level 3.5 g/dL (3.5-5.2); Alkaline Phosphatase 62 IU/L (35-105); Anion Gap 11.7 (5-19); Aspartate Amino Transferase 36 U/L (0-32); Blood Urea Nitrogen 14 mg/dL (8-23); Calcium 8.3 mg/dL (8.5-10.5); Carbon Dioxide 24 mmol/L (22-29); Chloride 107 mmol/L (98-107); Creatinine Clr Calc Pharmacy 70.8418; Globulin 2.5 g/dL (1.3-4.6); Glucose 103 mg/dL (65-115); Osmolality Calculated 289 mOsm/kg (285-295); Potassium 3.7 mmol/L (3.5-5.1); Sodium 139 mmol/L (136-145); Total Bilirubin 0.9 mg/dL (0.15-1.2)
[2021-06-01] MEDS: lisinopril 2.5 mg Tablet PO (08:13)
[2021-06-01] MEDS: enoxaparin 100 mg/mL Syringe SUBCUT ×2 (08:14→20:55)
--- NOTE | 2021-06-01 10:34 | P.PN_ITS ---
Subjective Subjective: Interval history: Cardiology coverage The patient seems to be doing okay with no chest pain or palpitations. Her heart rate is in the 50s and 60s. Currently she is on dopamine of 5 mics per KG per minute. Blood pressure is in the 140s and 150s, systolic. No chest pain or shortness of breath. According the patient, she is back to her baseline status at this point. She is currently off any AV jose blocking agents. She has a history of easy bruising. She also has a history of allergy to iodine, causing blisters Medications: Reviewed: Yes Medication Review Details: Current Medications Enoxaparin Sodium (Enoxaparin 100 Mg/Ml Syringe) 100 mg SUBCUT Q12H RAPHAEL Stop: 06/02/21 19:59 Last Admin: 06/01/21 08:14 Dose: 100 mg Documented by: Dopamine HCl/Dextrose (Intropin Drip) 400 mg in 250 mls @ 18.711 mls/hr IV CONT RAPHAEL; Protocol Last Admin: 05/31/21 21:11 Dose: 5 mcg/kg/min, 18.71 mls/hr Documented by: Lisinopril (Lisinopril 2.5 Mg Tablet) 2.5 mg PO DAILY RAPHAEL Last Admin: 06/01/21 08:13 Dose: 2.5 mg Documented by: Oxycodone HCl (Oxycodone 5 Mg Ir Tab/Cap) 5 mg PO Q6H PRN PRN Reason: SEVERE PAIN Fluticasone/Salmeterol (Fluticasone-Salmeterol 250-50 Diskus) 1 puff INHALATION BID.RESPIRATORY RAPHAEL Last Admin: 05/31/21 17:03 Dose: Not Given Documented by: Vitals/I&O/Wt Last Vital Signs Temp 97.5 F L 06/01/21 07:25 Pulse 54 L 06/01/21 07:25 Resp 18 06/01/21 07:25 BP 157/47 06/01/21 07:25 Pulse Ox 98 06/01/21 07:25 05/31/21 06/01/21 06/01/21 22:59 06:59 14:59 Intake Total 860 / 860 Balance 860 / 560 Weight last 48 hrs Weight 220 lb Physical Exam Narrative: EXAM NARRATIVE: GENERAL: The patient is alert and oriented times three. Not in any acute distress. Moderately obese] HEENT: No significant pallor, icterus or lymphadenopathy.Oral cavity: There are no mucous membrane lesions. NECK: Trachea appears to be central. No masses noted. No JVD or thyromegaly appreciated. RESPIRATORY: Chest is symmetrical. No intercostals muscle retraction or any accessory muscle activation. There is no chest wall tenderness. Breath sounds are heard bilaterally. No rales or rhonchi heard. No evidence of any consolidation. BREASTS: Deferred. HEART: The heart sounds are normal. No S3 or S4. No significant murmurs. No pericardial rub ABDOMEN: No vessel pulsations or distention. No tenderness. No organomegaly appreciated. Bowel sounds are normally heard. : Deferred. RECTAL: Deferred. LYMPHATIC: No lymphadenopathy noted in the neck or groin. EXTREMITIES: Trace edema with no cyanosis. No clubbing. Peripheral pulses are palpated in fairly good volume and amplitude MUSCULOSKELETAL: No acute joint deformities or swelling SKIN: There are no significant rashes or ecchymosis NEUROPSYCHIATRIC: The patient is alert and oriented x3. Appears to be in a good mood. No tremors or rigidity noted. Data : 05/30/21 14:28 06/01/21 04:37 Other Labs: Laboratory Last Values WBC 7.6 10^3/uL (4.0-10.0) 05/30/21 14: RBC 4.70 10^6/uL (4.1-5.3) 05/30/21 14:28 Hgb 13.8 g/dL (11.5-15.3) 05/30/21 14: Hct 42.6 % (37.0-47.0) 05/30/21 14: MCV 90.6 fL (81-99) 05/30/21 14:28 MCH 29.4 pg (28.0-34.0) 05/30/21 14: MCHC 32.4 g/dL (30.0-36.0) 05/30/21 14: RDW 14.1 % (12.1-15.1) 05/30/21 14:28 Plt Count 179 10^3/cmm (130-400) 05/30/21 14: MPV 11.8 fL (7.4-10.4) H 05/30/21 14: Neut % (Auto) 55.2 % 05/30/21 14:28 Lymph % (Auto) 32.6 % 05/30/21 14:28 [place] % (Auto) 8.4 % 05/30/21 14:28 Eos % (Auto) 2.5 % 05/30/21 14:28 Baso % (Auto) 0.8 % 05/30/21 14:28 Neut # (Auto) 4.20 10^3/uL (1.8-7.7) 05/30/21 14:28 Lymph # (Auto) 2.5 10^3/uL (0.8-4.8) 05/30/21 14:28 [place] # (Auto) 0.6 10^3/uL (0.2-0.9) 05/30/21 14:28 Eos # (Auto) 0.2 10^3/uL (0.0-0.8) 05/30/21 14:28 Baso # (Auto) 0.1 10^3/uL (0.0-0.1) 05/30/21 14:28 Nucleated RBC % (auto) 0 % 05/30/21 14:28 Nucleated RBCs # 0.0 /100WBC 05/30/21 14:28 PT 15.80 SECONDS (12.1-14.9) H 06/01/21 04:37 INR 1.23 (0.8-1.2) H 06/01/21 04:37 APTT 35.1 SECONDS (23.9-36.7) 05/30/21 14:28 Sodium 139 mmol/L (136-145) 06/01/21 04:37 Potassium 3.7 mmol/L (3.5-5.1) 06/01/21 04:37 Chloride 107 mmol/L (98-107) 06/01/21 04:37 Carbon Dioxide 24 mmol/L (22-29) 06/01/21 04:37 Anion Gap 11.7 (5-19) 06/01/21 04:37 BUN 14 mg/dL (8-23) 06/01/21 04:37 Creatinine 0.6 mg/dL (0.5-0.9) 06/01/21 04:37 GFR Calculation Not Reportable 06/01/21 04:37 Glucose 103 mg/dL (65-115) 06/01/21 04:37 Calculated Osmolality 289 mOsm/kg (285-295) 06/01/21 04:37 Calcium 8.3 mg/dL (8.5-10.5) L 06/01/21 04:37 Magnesium 2.2 mg/dL (1.7-2.3) 05/30/21 17:30 Total Bilirubin 0.9 mg/dL (0.15-1.2) 06/01/21 04:37 AST 36 U/L (0-32) H 06/01/21 04:37 ALT 55 U/L (0-33) H 06/01/21 04:37 Alkaline Phosphatase 62 IU/L (35-105) 06/01/21 04:37 Troponin T Baseline 20 ng/L (0-10) H 05/30/21 14:28 Troponin T 120 Minute 16.44 ng/L (0-10) H 05/30/21 17:30 Delta Troponin T -3.56 ABS# (0-10) L 05/30/21 17:30 NT-Pro-B Natriuret Pep 1504 pg/mL (0-125) H 05/31/21 05:36 Total Protein 6.0 g/dL (6.6-8.7) L 06/01/21 04:37 Albumin 3.5 g/dL (3.5-5.2) 06/01/21 04:37 Globulin 2.5 g/dL (1.3-4.6) 06/01/21 04:37 Triglycerides 54 mg/dL (0-150) 05/31/21 05:36 Cholesterol 139 mg/dL (0-200) 05/31/21 05:36 LDL Cholesterol, Calc 85 mg/dL (50-129) 05/31/21 05:36 HDL Cholesterol 43 mg/dL (60-100) L 05/31/21 05:36 LDL/HDL Ratio 1.98 RATIO (0.00-3.22) 05/31/21 05:36 Cholesterol/HDL Ratio 3.23 mg/dL (0.0-4.40) 05/31/21 05:36 Procalcitonin 0.04 ng/mL (0-0.5) 05/30/21 17:30 TSH 3.28 uIU/mL (0.27-4.20) 05/30/21 17:30 Urine Color Yellow (Yellow) 05/30/21 15:08 Urine Appearance Sl hazy (CLEAR) 05/30/21 15:08 Urine pH 5 (5-7) 05/30/21 15:08 Ur Specific [place] 1.020 (1.005-1.030) 05/30/21 15:08 Urine Protein Neg (Negative) 05/30/21 15:08 Urine Glucose (UA) Norm (Normal) 05/30/21 15:08 Urine Ketones Negative (Negative) 05/30/21 15:08 Urine Blood 2+ (Negative) H 05/30/21 15:08 Urine Nitrate Negative (Negative) 05/30/21 15:08 Urine Bilirubin Neg (Negative) 05/30/21 15:08 Urine Urobilinogen Norm mg/dL (Negative) 05/30/21 15:08 Ur Leukocyte Esterase 1+ (Negative) H 05/30/21 15:08 Urine RBC 0-4 /hpf (0-2) H 05/30/21 15:08 Urine WBC 15-25 /hpf (0-5) H 05/30/21 15:08 Ur Squamous Epith Cells 5-10 /hpf (0-5) H 05/30/21 15:08 Amorphous Sediment Not Reportable 05/30/21 15:08 Urine Bacteria Trace /hpf (NONE) 05/30/21 15:08 Urine Mucus Trace /hpf 05/30/21 15:08 Micro: Microbiology 05/30/21 15:08 Urine Culture - Preliminary Urine,Clean Catch Echo: My impression: Echo done on 03/02/2021 revealed LV systolic function is normal with EF of 60-65% Diastolic function is indeterminate because of atrial fibrillation Biatrial enlargement Moderate aortic stenosis is noted. By continuity equation, PATRICK is 1.8cm2 and mean gradient across the aortic valve of 23mmHg Mild to moderate aortic regurgitation is noted Mild to moderate tricuspid regurgitation Moderate pulmonary hypertension is seen Compared to prior echocardiogram from 08/21/20 , aortic stenosis has progressed slightly and is moderate now. Will recommend continuing to monitor with 6 monthly echos CXR: My impression: Borderline cardiac silhouette. No lung infiltrate. Atherosclerotic changes in the aorta A&P Assessment and plan (1) Symptomatic bradycardia: In view of the patient's symptomatic bradyarrhythmia, in order to further manage her condition, she requested permanent pacer implantation. This was di scussed with the patient in detail. The risk of bleeding, hematoma, vascular injury, pneumothorax, infection, renal failure and other concomitant complications were explained in detail. The patient the patient understood this well and consented to proceed. We may go ahead and schedule this on Thursday. The Lovenox may be held after 7 AM tomorrow Status: Acute (2) Chronic atrial fibrillation: Patient has been taking the Xarelto at home. This was held since Thursday. patient is currently on subcu Lovenox. Status: Acute (3) Aortic insufficiency with aortic stenosis: Since the patient has no specific symptoms of valve dysfunction, advised to continue on the current measures. Will have a follow-up evaluation as scheduled. 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 Try to taper down the dose of the dopamine to keep it at the minimum dose. She will be closely monitored on telemetry. Based on the clinical progress, further management decisions will be made. Attestations Medical Necessity Statement*: Patient requires continued hospital stay for close monitoring and further management Coding Level of Care Code Acute Telecommunications Equipment Installer for [facility] Fwd History Detailed Exam Detailed Medical Decision Making Moderate Complexity Diagnoses Symptomatic bradycardia R00.1 Chronic atrial fibrillation I48.20 Aortic insufficiency with aortic stenosis I35.2 Cardiac valve disease etiology: etiology unspecified DVT (deep venous thrombosis) I82.519 DVT location: lower extremity Affected thrombotic vein of extremity: femoral Chronicity: chronic Laterality: unspecified laterality
[2021-06-01] MEDS: DOPamine drip 400 MG/250 ML PREMIX 14.97 MG IV (11:16)
--- NOTE | 2021-06-01 17:39 | P.PN_ITS ---
Subjective Subjective: Interval history: No new clinical events overnight Medications: Reviewed: Yes Medication Review Details: Current Medications Enoxaparin Sodium (Enoxaparin 100 Mg/Ml Syringe) 100 mg SUBCUT Q12H RAPHAEL Stop: 06/02/21 19:59 Last Admin: 06/01/21 08:14 Dose: 100 mg Documented by: Dopamine HCl/Dextrose (Intropin Drip) 400 mg in 250 mls @ 18.711 mls/hr IV CONT RAPHAEL; Protocol Last Admin: 05/31/21 21:11 Dose: 5 mcg/kg/min, 18.71 mls/hr Documented by: Lisinopril (Lisinopril 2.5 Mg Tablet) 2.5 mg PO DAILY RAPHAEL Last Admin: 06/01/21 08:13 Dose: 2.5 mg Documented by: Oxycodone HCl (Oxycodone 5 Mg Ir Tab/Cap) 5 mg PO Q6H PRN PRN Reason: SEVERE PAIN Fluticasone/Salmeterol (Fluticasone-Salmeterol 250-50 Diskus) 1 puff INHALATION BID.RESPIRATORY RAPHAEL Last Admin: 05/31/21 17:03 Dose: Not Given Documented by: Vitals/I&O/Wt Last Vital Signs Temp 98.0 F 06/01/21 12:05 Pulse 50 L 06/01/21 14:00 Resp 16 06/01/21 12:05 BP 151/69 06/01/21 12:05 Pulse Ox 95 06/01/21 12:05 06/01/21 06/01/21 06/01/21 06:59 14:59 22:59 Intake Total 250 / 250 Balance 250 / 250 Physical Exam Const: COMMON NORMALS: patient oriented x3 GENERAL APPEARANCE: cooperative Resp: COMMON NORMALS: normal respiratory effort and No retractions Cardio: RATE: bradycardic RHYTHM: abnormal rhythm GI: COMMON NORMALS: Soft to palpation and non-tender PALPATION: Yes Soft to palpation Neuro: COMMON NORMALS: patient oriented x3 and CN's II-XII intact bilaterally Psych: COMMON NORMALS: mental status grossly normal and Normal thought process present THOUGHT PROCESS: Normal thought process present Data : 05/30/21 14:28 06/01/21 04:37 Micro: Microbiology 05/30/21 15:08 Urine Culture - Preliminary Urine,Clean Catch A&P Assessment and plan (1) Atrial fibrillation: Status: Acute (2) Anticoagulation adequate with anticoagulant therapy: Status: Acute (3) Chest pain: Status: Acute (4) Symptomatic bradycardia: Status: Acute (5) Transaminitis: Status: Acute Additional A&P Information #bradycardia/sick sinus syndrome -- continue dopamine -- cardiology on board -- pacemaker placement eval #chest pain --monitor #afib --bradycardic, hold anticoagulation #transaminitis --trend, consider US #hematuria --no flank pain,hold anticoagulation Attestations Medical Necessity Statement*: continue hospitalization for IV dopamine and pacemaker placed Coding Level of Care Code Acute 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
[2021-06-02] VITALS (13 sets, daily range): BP systolic 111–162; BP diastolic 57–111; PULSE 54–78; RESP 16–30; TEMP 36.6–37.2; O2SAT 94–96
[2021-06-02 04:06] LABS: INR 1.19 (0.8-1.2)
[2021-06-02] MEDS: DOPamine drip 400 MG/250 ML PREMIX 14.97 MG IV (04:21)
[2021-06-02 04:48] LABS: Alanine Aminotransferase 40 U/L (0-33); Albumin Level 3.3 g/dL (3.5-5.2); Alkaline Phosphatase 55 IU/L (35-105); Anion Gap 11.6 (5-19); Aspartate Amino Transferase 25 U/L (0-32); Blood Urea Nitrogen 12 mg/dL (8-23); Calcium 8.2 mg/dL (8.5-10.5); Carbon Dioxide 24 mmol/L (22-29); Chloride 106 mmol/L (98-107); Creatinine Clr Calc Pharmacy 70.8418; Globulin 2.5 g/dL (1.3-4.6); Glucose 107 mg/dL (65-115); Osmolality Calculated 286 mOsm/kg (285-295); Potassium 3.6 mmol/L (3.5-5.1); Sodium 138 mmol/L (136-145); Total Bilirubin 0.9 mg/dL (0.15-1.2); Total Protein 5.8 g/dL (6.6-8.7)
[2021-06-02] MEDS: famotidine 20 mg Tablet PO ×3 (05:20→18:56)
[2021-06-02] MEDS: predniSONE 20 mg Tablet 40 MG PO ×3 (05:20→16:15)
[2021-06-02] MEDS: enoxaparin 100 mg/mL Syringe SUBCUT (09:40)
[2021-06-02] MEDS: lisinopril 2.5 mg Tablet PO (09:42)
--- NOTE | 2021-06-02 10:24 | PC.NURSE ---
dr ruggiero in to see pt.he ordered dopamine to be reduced to 3 mcg/kg/min
--- NOTE | 2021-06-02 12:25 | PC.SOCIAL ---
Pg 2 IMM Explained to pt Pg 2 IMM. No questions voiced. Provided pt a copy. Initialed, dated, & timed a copy & placed in chart.
--- NOTE | 2021-06-02 14:20 | P.PN_ITS ---
Subjective Subjective: Interval history: No new clinical events overnight. Denies chest pain or shortness of breath. Medications: Reviewed: Yes Medication Review Details: Current Medications Enoxaparin Sodium (Enoxaparin 100 Mg/Ml Syringe) 100 mg SUBCUT Q12H RAPHAEL Stop: 06/02/21 19:59 Last Admin: 06/01/21 08:14 Dose: 100 mg Documented by: Dopamine HCl/Dextrose (Intropin Drip) 400 mg in 250 mls @ 18.711 mls/hr IV CONT RAPHAEL; Protocol Last Admin: 05/31/21 21:11 Dose: 5 mcg/kg/min, 18.71 mls/hr Documented by: Lisinopril (Lisinopril 2.5 Mg Tablet) 2.5 mg PO DAILY RAPHAEL Last Admin: 06/01/21 08:13 Dose: 2.5 mg Documented by: Oxycodone HCl (Oxycodone 5 Mg Ir Tab/Cap) 5 mg PO Q6H PRN PRN Reason: SEVERE PAIN Fluticasone/Salmeterol (Fluticasone-Salmeterol 250-50 Diskus) 1 puff INHALATION BID.RESPIRATORY RAPHAEL Last Admin: 05/31/21 17:03 Dose: Not Given Documented by: Vitals/I&O/Wt Last Vital Signs Temp 98.3 F 06/02/21 12:00 Pulse 78 06/02/21 12:00 Resp 20 H 06/02/21 12:00 BP 143/65 06/02/21 08:34 Pulse Ox 94 06/02/21 12:00 06/01/21 06/02/21 06/02/21 22:59 06:59 14:59 Intake Total 120 / 370 370 / 740 90.319 / 90.319 Output Total 400 / 400 350 / 750 1450 / 1450 Balance -280 / -30 20 / -10 -1359.681 / -1359.681 Physical Exam Const: COMMON NORMALS: patient oriented x3 GENERAL APPEARANCE: cooperative Resp: COMMON NORMALS: normal respiratory effort and No retractions Cardio: RATE: bradycardic RHYTHM: abnormal rhythm GI: COMMON NORMALS: Soft to palpation and non-tender PALPATION: Yes Soft to palpation Neuro: COMMON NORMALS: patient oriented x3 and CN's II-XII intact bilaterally Psych: COMMON NORMALS: mental status grossly normal and Normal thought process present THOUGHT PROCESS: Normal thought process present Data : 05/30/21 14:28 06/02/21 03:15 Micro: Microbiology 05/30/21 15:08 Urine Culture - Final Urine,Clean Catch A&P Assessment and plan (1) Atrial fibrillation: Status: Acute (2) Anticoagulation adequate with anticoagulant therapy: Status: Acute (3) Chest pain: Status: Acute (4) Symptomatic bradycardia: Status: Acute (5) Transaminitis: Status: Acute Additional A&P Information #bradycardia/sick sinus syndrome -- continue dopamine -- cardiology on board -- pacemaker placement -- Preop antibiotics ordered by Cardiology #afib --bradycardic, on Lovenox #transaminitis --trend, consider US #hematuria --no flank pain,hold anticoagulation -- resolved Attestations Medical Necessity Statement*: continue hospitalization for management of bradycardia Time Spent in Patient Care: Greater than 35 minutes (>than 50% of time spent in counselling and/or direct pt care on unit) . Coding Level of Care Code Acute Bottle Blower for [facility]ll[facility] Diagnoses Atrial fibrillation I48.91 Anticoagulation adequate with anticoagulant therapy Z79.01 Chest pain R07.9 Symptomatic bradycardia R00.1 Transaminitis R74.01
[2021-06-02] MEDS: magnesium citrate Btl 296 mL PO (16:15)
--- NOTE | 2021-06-02 16:17 | P.PN_ITS ---
Subjective Subjective: Interval history: Patient is feeling okay. She was on dopamine of 4 mics per KG per minute. Heart rate was staying in the 60s and 70s while she is awake. It is running in the 50s and 60s during the sleep time. She denies any chest pain or palpitations. No dizziness. No more passing out spells. She has small ecchymotic areas at the IV sites. According to the patient, she has a history of easy bruising. Medications: Reviewed: Yes Medication Review Details: Current Medications Enoxaparin Sodium (Enoxaparin 100 Mg/Ml Syringe) 100 mg SUBCUT Q12H RAPHAEL Stop: 06/02/21 19:59 Last Admin: 06/02/21 09:40 Dose: 100 mg Documented by: Famotidine (Famotidine 20 Mg Tablet) 20 mg PO BID RAPHAEL Stop: 06/03/21 09:01 Last Admin: 06/02/21 09:42 Dose: 20 mg Documented by: Dopamine HCl/Dextrose (Intropin Drip) 400 mg in 250 mls @ 11.226 mls/hr IV CONT RAPHAEL; Protocol Last Titration: 06/02/21 10:23 Dose: 3 mcg/kg/min, 11.23 mls/hr Documented by: Cefazolin Sodium 1,000 mg/ (Sodium Chloride) 50 mls @ 100 mls/hr IV ANIMAL NUTRITION CONSULTANT ONE; Protocol Stop: 06/03/21 07:29 Vancomycin HCl 1,000 mg/ (Sodium Chloride) 250 mls @ 250 mls/hr IV ANIMAL NUTRITION CONSULTANT ONE; Protocol Stop: 06/03/21 07:59 Sodium Chloride (Sodium Chloride 0.9%) 1,000 mls @ 75 mls/hr IV .[id number] [facility] Lisinopril (Lisinopril 2.5 Mg Tablet) 2.5 mg PO DAILY RAPHAEL Last Admin: 06/02/21 09:42 Dose: 2.5 mg Documented by: Oxycodone HCl (Oxycodone 5 Mg Ir Tab/Cap) 5 mg PO Q6H PRN PRN Reason: SEVERE PAIN Fluticasone/Salmeterol (Fluticasone-Salmeterol 250-50 Diskus) 1 puff INHALATION BID.RESPIRATORY RAPHAEL Last Admin: 06/02/21 10:04 Dose: 1 puff Documented by: Vitals/I&O/Wt Last Vital Signs Temp 98.3 F 06/02/21 12:00 Pulse 78 06/02/21 12:00 Resp 20 H 06/02/21 12:00 BP 143/65 06/02/21 08:34 Pulse Ox 94 06/02/21 12:00 06/02/21 06/02/21 06/02/21 06:59 14:59 22:59 Intake Total 370 / 740 90.319 / 90.319 Output Total 350 / 750 1450 / 1450 Balance 20 / -10 -1359.681 / -1359.681 Physical Exam Narrative: EXAM NARRATIVE: GENERAL: The patient is alert and oriented times three. Not in any acute distress. Moderately obese] HEENT: No significant pallor, icterus or lymphadenopathy.Oral cavity: There are no mucous membrane lesions. NECK: Trachea appears to be central. No masses noted. No JVD or thyromegaly appreciated. RESPIRATORY: Chest is symmetrical. No intercostals muscle retraction or any accessory muscle activation. There is no chest wall tenderness. Breath sounds are heard bilaterally. No rales or rhonchi heard. No evidence of any consolidation. BREASTS: Deferred. HEART: The heart sounds are normal. No S3 or S4. No significant murmurs. No pericardial rub ABDOMEN: No vessel pulsations or distention. No tenderness. No organomegaly appreciated. Bowel sounds are normally heard. : Deferred. RECTAL: Deferred. LYMPHATIC: No lymphadenopathy noted in the neck or groin. EXTREMITIES: Trace edema with no cyanosis. No clubbing. Peripheral pulses are palpated in fairly good volume and amplitude MUSCULOSKELETAL: No acute joint deformities or swelling SKIN: There are no significant rashes or ecchymosis NEUROPSYCHIATRIC: The patient is alert and oriented x3. Appears to be in a good mood. No tremors or rigidity noted. Data : 05/30/21 14:28 06/02/21 03:15 Micro: Microbiology 05/30/21 15:08 Urine Culture - Final Urine,Clean Catch A&P Assessment and plan (1) Symptomatic bradycardia: Patient's heart rate seems to be getting back into the normal range since we discontinued metoprolol. We will try to taper off the dopamine is possible. And will watch the heart rate without dopamine. Depending on how she does, we will decide on the permanent pacemaker. Status: Acute (2) Chronic atrial fibrillation: Patient has been taking the Xarelto at home. This was held since Thursday. patient is currently on subcu Lovenox. Status: Acute (3) Aortic insufficiency with aortic stenosis: Since the patient has no specific symptoms of valve dysfunction, advised to continue on the current measures. Will have a follow-up evaluation as scheduled. 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 We will try to taper off the dopamine today. Will reevaluate the need for permanent pacer implantation tomorrow. Apparently the patient was started on metoprolol on the eighth of this month as an outpatient. The bradycardia seems to have started since then. Also will be discussing the case with her primary shaper hand Dr. Perrin tomorrow. 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
--- NOTE | 2021-06-02 21:22 | PC.NURSE ---
dr ruggiero in to see pt at 1630.heart rate has been 60's to 80.he ordered to dc dopamine drip.it was dc'd at this time
[2021-06-03] VITALS (7 sets, daily range): BP systolic 114–136; BP diastolic 64–65; PULSE 59–88; RESP 16–20; TEMP 36.3–36.6; O2SAT 94–99
[2021-06-03] MEDS: sodium chloride 0.9% 1,000 ML 75 ML IV (06:01)
[2021-06-03] MEDS: ceFAZolin 1,000 MG in sodium chloride 0.9% (plus) 50 ML 100 MG IV (06:02)
[2021-06-03] MEDS: vancomycin 1,000 MG in sodium chloride 0.9% 250 ML 250 MG IV (06:16)
--- NOTE | 2021-06-03 06:42 | PC.NURSE ---
Patient resting in bed. Pacemaker scheduled for 1629. Light breakfast. IV abts running per MAR and orders. Continue care.
[2021-06-03] MEDS: famotidine 20 mg Tablet PO (09:03)
[2021-06-03] MEDS: lisinopril 2.5 mg Tablet PO (09:03)
--- NOTE | 2021-06-03 09:17 | PM.PN ---
Subjective Subjective: Interval history: Patient is doing well. Her heart rates have recovered since yesterday and she is running in the 60s to 70s. Dobutamine drip has been off since yesterday. Vitals/I&O/Wt Last Vital Signs Temp 98 F 06/03/21 04:00 Pulse 63 06/03/21 06:00 Resp 16 06/03/21 04:00 BP 114/65 06/03/21 04:00 Pulse Ox 98 06/03/21 04:00 06/02/21 06/03/21 06/03/21 22:59 06:59 14:59 Intake Total 399.681 / 490.000 50 / 540.000 250 / 250 Output Total 75 / 75 Balance 399.681 / -960.000 50 / -910.000 175 / 175 Physical Exam Narrative: EXAM NARRATIVE: GENERAL: Patient is alert, awake and oriented x3. [] NECK: No jugular vein distension. [] HEENT: No cyanosis. No icterus. No pallor. [] HEART: Regular S1 and S2. No murmur, rub or gallop. [] LUNGS: Clear to auscultate bilaterally. [] ABDOMEN: Soft, nontender and nondistended. Positive bowel sounds. No guarding, rebound or tenderness. [] CENTRAL NERVOUS SYSTEM: Grossly nonfocal. [] EXTREMITIES: Lower extremities with 1+ edema bilaterally. Pulses palpable in the lower extremities, both dorsalis pedis and posterior tibial. [] Data : 05/30/21 14:28 06/02/21 03:15 Micro: Microbiology 05/30/21 15:08 Urine Culture - Final Urine,Clean Catch A&P Assessment and plan (1) Symptomatic bradycardia: Vj has resolved since yesterday. Metoprolol was stopped and dopamine was also weaned off yesterday. Initially there was plan for pacemaker placement however as her heart rates have recovered, we will keep holding rate controlling agents and treat conservatively at this time. If in future she develops bradycardia again. She will require a pacemaker. From cardiology standpoint she is stable to be discharged home today. (2) Chronic atrial fibrillation: Restart Xarelto. (3) Aortic insufficiency with aortic stenosis: Since the patient has no specific symptoms of valve dysfunction, advised to continue on the current measures. Will have a follow-up evaluation as scheduled. 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 We will try to taper off the dopamine today. Will reevaluate the need for permanent pacer implantation tomorrow. Apparently the patient was started on metoprolol on the eighth of this month as an outpatient. The bradycardia seems to have started since then. Also will be discussing the case with her primary rotary drier operator Dr. Perrin tomorrow. Attestations Medical Necessity Statement*: Care expected to cross 2 midnights. Coding Level of Care Code Acute Animal Cop for [facility] Fwd Diagnoses Symptomatic bradycardia R00.1 Chronic atrial fibrillation I48.20 Aortic insufficiency with aortic stenosis I35.2 Cardiac valve disease etiology: etiology unspecified DVT (deep venous thrombosis) I82.519 DVT location: lower extremity Affected thrombotic vein of extremity: femoral Chronicity: chronic Laterality: unspecified laterality
--- NOTE | 2021-06-03 17:41 | P.DS_ITS ---
Discharge Providers Date of Admission: 05/30/21 16:42 Date of Discharge: June 03, 2021 Attending Provider at Admission: Jaci Gentile MD Attending Provider at Discharge: Fareed Loco MD Primary Care Provider: Brigitte Mccoy NP Diagnoses at Discharge Discharge Diagnosis (1) Symptomatic bradycardia: Status: Resolved (2) Chronic atrial fibrillation: Status: Chronic (3) Aortic insufficiency with aortic stenosis: Status: Acute Qualifiers: Cardiac valve disease etiology: etiology unspecified Qualified Code(s): I35.2 - Nonrheumatic aortic (valve) stenosis with insufficiency (4) DVT (deep venous thrombosis): Status: Acute Permanent problem details: Patient has no evidence of any recurrence of the DVT. May continue on the current medications. 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 Further work-up in the ER revealed bradycardia with heart rate into 30s while the underlying rhythm was atrial fibrillation.She was recently started on low-dose of metoprolol 12.5 mg twice daily.She was started on dopamine drip during the hospital stay, metoprolol was discontinued, she was admitted for the management of symptomatic bradycardia, with possible underlying sick sinus syndrome. Slowly dopamine was also discontinued, at the time of discharge heart rate was well controlled, bradycardia had resolved. Current plan was to continue to monitor the patient keeping off the metoprolol. Patient responded well to the medical management an d is being discharged in stable condition. She will continue to follow Dr. Perrin as an outpatient. Physical Exam Const: COMMON NORMALS: no acute distress, average body habitus and patient oriented x3 GENERAL APPEARANCE: cooperative Chest: COMMONS NORMALS: normal inspection of the chest Resp: COMMON NORMALS: normal respiratory effort and No retractions Cardio: RATE: bradycardic RHYTHM: abnormal rhythm GI: COMMON NORMALS: Soft to palpation and non-tender PALPATION: Yes Soft to palpation Neuro: COMMON NORMALS: patient oriented x3 and CN's II-XII intact bilaterally Psych: COMMON NORMALS: mental status grossly normal and Normal thought process present THOUGHT PROCESS: Normal thought process present Discharge Data Data Completed and Pending: Completed Studies During Hospitalization Category Date Time Status XR chest 1V jake ble [id number] Stat Exams 05/30/21 14:00 Completed Vitals: Last Vital Signs Temp 97.4 F L 06/03/21 12:00 Pulse 73 06/03/21 12:00 Resp 20 H 06/03/21 12:00 BP 136/64 06/03/21 12:00 Pulse Ox 99 06/03/21 12:00 Discharge Plan Discharge Patient Disposition: Home Condition: Stable Prescriptions: Continued cholecalciferol (vitamin D3) 100 mcg (4,000 unit) capsule 100 mcg PO DAILY RF: 0 furosemide 20 mg tablet 40 mg PO DAILY RF: 0 budesonide-formoterol [Symbicort] 80-4.5 mcg/actuation HFA aerosol inhaler 2 puff inhalation BID Qty: 10.2 RF: 3 Xarelto 20 mg tablet 20 mg PO DAILY RF: 0 Hold Instructions: Resume on 03/08/21. potassium chloride 10 mEq tablet extended release 40 meq PO DAILY RF: 0 clonidine HCl 0.1 mg tablet See Rx Instructions .ROUTE .COMPLEX RF: 0 Vitamin B-12 1,000 mcg Tablet 1,000 mcg PO DAILY RF: 0 lisinopril 2.5 mg tablet 2.5 mg PO DAILY RF: 0 Prolia 60 mg/mL syringe See Rx Instructions .ROUTE .COMPLEX RF: 0 Discontinued metoprolol tartrate 25 mg tablet 12.5 mg PO BID Qty: 180 RF: 1 Discharge Orders: Discharge Order (Routine); Ordered 06/03/21 Ordered By: Fareed Loco Referrals: Nhan Perrin M.D [Physician] - 1 month (You have a follow up appointment with Dr Perrin on 2020 at 1 pm. If you can not keep this appointment please call to reschedule. ) Brigitte Mccoy NP [Primary Care Provider] - 4-7 days (You have an appointment with Brigitte Mccoy NP on June 10 at 10:00 am. If you can not keep this appointment please call to reschedual.) Discharge Diet: Regular Discharge Activity: Resume usual activity Patient Instructions: Atrial Fibrillation, Chest Pain (DC), Bradycardia (DC), Opioid Safety Discharge Attestations Time Spent in Discharge Care*: less than 30 min Specific Discharge Activities: educating patient, educating and/or supporting family/caregiver, discussing with pcp/other providers, discussing with lead case manager/social workers/dc planners, documenting/other paperwork and evaluating patient/reviewing data Status at Discharge: Cognitive status at discharge: cognitively intact , Behavioral status at discharge: cooperative , Functional status at discharge: independent ambulation Overall status at discharge: patient is back to baseline Quality Metrics Clinical Quality Measures During this hospital stay, did patient experience: None Coding Level of Care Code Acute Chg FW DC note Diagnoses Symptomatic bradycardia R00.1 Chronic atrial fibrillation I48.20 Aortic insufficiency with aortic stenosis I35.2 Cardiac valve disease etiology: etiology unspecified DVT (deep venous thrombosis) I82.519 DVT location: lower extremity Affected thrombotic vein of extremity: femoral Chronicity: chronic Laterality: unspecified laterality
--- NOTE | 2021-06-03 18:45 | PC.RESP ---
PULMONARY REHAB INFORMATION SENT TO PATIENT.
== END 2021-06-03 14:00 | disposition home or self-care (01) | DRG 309 ==
LOC: ER 16:37 → CSU 17:50
PROVIDERS: Admitting Provider Internal Medicine; Emergency Provider Emergency Medicine; PCP Nurse Practitioner Family; Visit Provider Internal Medicine
DX: R00.1 Bradycardia, unspecified (principal); I82.519 Chronic embolism and thrombosis of unspecified femoral vein; I48.20 Chronic atrial fibrillation, unspecified; I35.0 Nonrheumatic aortic (valve) stenosis; I25.10 Atherosclerotic heart disease of native coronary artery without angina pectoris; J44.9 Chronic obstructive pulmonary disease, unspecified; I27.20 Pulmonary hypertension, unspecified; G47.30 Sleep apnea, unspecified; R31.9 Hematuria, unspecified; Z79.01 Long term (current) use of anticoagulants
CPT/HCPCS: 36415; 71045; 80053; 80061; 81001; 83735; 83880; 84145; 84443; 84484; 85025; 85610; 85730; 87086; 93005; 94640; 96365; 96366; 96372; 96375; 99285; J0461; J0690; J1265; J1610; J1650; J3370; J7030; J7050; J7512

== ENCOUNTER 2021-09-05 09:08 | Outpatient (CLI) | payer MEDICARE, OTHER, MEDICAID, SELFPAY ==
--- NOTE | 2021-09-05 09:30 | USCV_ITS ---
Lelia Mcguire Age: 76 Gender: F : 1945 Exam Date: 09/05/2021 09:38 Ordering Phys: Nahn Perrin M.D ([email or web address]) Technologist: MALORIE Exam Location: [facility] [place] Indication: AO STENOSIS BP: 125 / 61 HR: 60 Rhythm: Atrial fibrillation Technical Quality: Adequate MEASUREMENTS (Male / Female) Normal Values 2D ECHO LV Diastolic Diameter PLAX 4.3 cm 4.2 - 5.9 / 3.9 - 5.3 cm LV Systolic Diameter PLAX 3.7 cm IVS Diastolic Thickness 1.4 cm 0.6 - 1.0 / 0.6 - 0.9 cm IVS Systolic Thickness 1.5 cm LVPW Diastolic Thickness 2.4 cm 0.6 - 1.0 / 0.6 - 0.9 cm LVPW Systolic Thickness 2.3 cm LVOT Diameter 2.0 cm LV Ejection Fraction 2D Teich 30.8 % LV Ejection Fraction MOD 2C 68.2 % LV Ejection Fraction 2C AL 69.6 % LA Diameter 4.4 cm LA Width 4.5 cm LA Height 5.8 cm RA Width 3.6 cm RA Height 5.5 cm Aorta at Sinotubular Diameter 2.2 cm M-MODE Aortic Annulus Diameter 2.3 cm LA Ao Ratio MM 1.9 MV E Point Septal Separation 0.5 cm DOPPLER AV Peak Velocity 259.7 cm/s LVOT Peak Velocity 174.0 cm/s AV Area Cont Eq vti 2.1 cm squared AV Area Cont Eq pk 2.1 cm squared MV Peak Velocity 226.0 cm/s MV Area PHT 3.7 cm squared MV E' Velocity 57.5 cm/s Mitral E to MV E' Ratio 8.9 Mitral E to LV E' Lateral Ratio 8.5 Mitral E to LV E' Septal Ratio 9.3 TR Peak Velocity 224.0 cm/s TR Peak Gradient 20.1 mmHg TR Mean Velocity 180.2 cm/s TR Mean Gradient 14.7 mmHg TR Velocity Time Integral 66.5 cm TV Peak E Velocity 52.0 cm/s Right Atrial Pressure 8.0 mmHg Pulmonary Artery Systolic Pressu 28.1 mmHg PV Peak Velocity 123.0 cm/s RV Acceleration Time 0.1 s RV Ejection Time 0.3 s RV AcT/ET 0.3 FINDINGS Left Ventricle Normal left ventricular size. LV systolic function is normal with EF of 60-65%. No regional wall motion abnormalities. Diastolic function is indeterminate because of atrial fibrillation. Right Ventricle The right ventricle is normal in size and function. Right Atrium The right atrium is enlarged. Left Atrium The left atrium is severely dilated Mitral Valve Structurally normal mitral valve without significant stenosis or prolapse. There is mild mitral regurgitation. Aortic Valve Structurally normal aortic valve . Mild to moderate aortic stenosis is noted with aortic valve area of 1.76cm2 and mean gradient across the aortic valve of 16mmHg. There is mild to moderate aortic regurgitation. Tricuspid Valve Structurally normal tricuspid valve without significant stenosis. Mild regurgitation. RVSP is normal Pulmonic Valve Structurally normal pulmonic valve without significant stenosis. There is mild pulmonic regurgitation. Pericardium Normal pericardium without effusion. Aorta Normal ascending aorta dimension. CONCLUSIONS LV systolic function is normal with EF of 60-65%. Diastolic function is indeterminate because of atrial fibrillation Left atrium is severely dilated Mild mitral regurgitation Mild to moderate aortic stenosis with PATRICK of 1.76cm2 and mean gradient across the aortic valve of 16mmHg. Mild to moderate aortic regurgitation Mild tricuspid regurgitation Mild pulmonic regurgitation Compared to prior echocardiogram from 02/20/2021, no significant changes are noted Nhan Perrin MD (Electronically Signed) Final Date: 07 September 2021 14:59 S
== END 2021-09-05 09:09 | disposition home or self-care (01) ==
LOC: RAD 09:10
PROVIDERS: PCP Nurse Practitioner Family; Visit Provider Internal Medicine
DX: I08.3 Combined rheumatic disorders of mitral, aortic and tricuspid valves (principal)
CPT/HCPCS: 93306

== ENCOUNTER 2022-02-18 13:00 | Outpatient (CLI) | payer MEDICARE, OTHER, MEDICAID, SELFPAY ==
--- NOTE | 2022-02-18 13:11 | XR_ITS ---
WS: [id number] SCREENING DEXA SCAN [place] CLINICAL INFORMATION: AGE RELATED OSTEOPOROSIS W/O CURRENT PATHOLOGICAL FX COMPARISON: None. FINDINGS: The L1-L4 bone mineral density measures 1.294 g/cm2. This corresponds to a T score score of 0.9 and Z score of 1.5. Left femoral neck bone mineral density measures 0.882 g/cm2. This corresponds to a T score of -1.0 an d Z score of -0.1. Right femoral neck bone mineral density measures 0.920 g/cm2. This corresponds to a T score -0.7of an d Z score of 0.2. Mean femoral neck bone mineral density measures 0.901 g/cm2. This corresponds to a T score of -0.8 an d Z score of 0.1. XR/XR DEXA axial skeleton* [id number] IMPRESSION: Normal bone mineralization lumbar spine. Osteopenia in the femoral necks. Patient's FRAX calculated 10 year probability for major osteoporotic fracture i s 10.7 % and osteoporotic hip fracture is 3.3%.
== END 2022-02-18 13:01 | disposition home or self-care (01) ==
PROVIDERS: PCP Nurse Practitioner Family; Visit Provider Nurse Practitioner Family
DX: M81.0 Age-related osteoporosis without current pathological fracture (principal)
CPT/HCPCS: 77080

== ENCOUNTER 2022-03-10 09:06 | Outpatient (CLI) | payer MEDICARE, OTHER, MEDICAID, SELFPAY ==
--- NOTE | 2022-03-10 09:14 | XR_ITS ---
WS: [id number] Left hand, AP and lateral views, 03/10/2022 Clinical Data: L HAND PAIN Comparison: None. Findings: No fractures or dislocations are seen. The soft tissues are unremarkable. There is minimal osteoarthr itic change of the left second and third PIP joints and the left second finger DIP joint. 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
== END 2022-03-10 09:07 | disposition home or self-care (01) ==
LOC: RAD 09:10
PROVIDERS: PCP Nurse Practitioner Family; Visit Provider Nurse Practitioner Family
DX: M19.042 Primary osteoarthritis, left hand (principal); M79.642 Pain in left hand
CPT/HCPCS: 73120

== ENCOUNTER → 2022-03-20 13:33 | Outpatient (BNVA) | payer MEDICARE, OTHER, MEDICAID, SELFPAY | PROVIDERS: PCP Nurse Practitioner Family; Visit Provider Internal Medicine | DX: I82.519 Chronic embolism and thrombosis of unspecified femoral vein (principal); I35.2 Nonrheumatic aortic (valve) stenosis with insufficiency; I27.21 Secondary pulmonary arterial hypertension; G47.30 Sleep apnea, unspecified; I48.91 Unspecified atrial fibrillation; E66.9 Obesity, unspecified; Z79.01 Long term (current) use of anticoagulants; Z68.38 Body mass index [BMI] 38.0-38.9, adult | CPT/HCPCS: 99214 ==

== ENCOUNTER → 2022-04-03 10:12 | Outpatient (BNVA) | payer MEDICARE, OTHER, MEDICAID, SELFPAY | PROVIDERS: PCP Nurse Practitioner Family; Visit Provider Internal Medicine Critical Care Medicine | DX: J45.909 Unspecified asthma, uncomplicated (principal); I10 Essential (primary) hypertension | CPT/HCPCS: 99213 ==

== ENCOUNTER 2022-04-09 10:10 | Outpatient (CLI) | payer MEDICARE, OTHER, MEDICAID, SELFPAY ==
--- NOTE | 2022-04-09 10:22 | MM_ITS ---
WS: [id number] BILATERAL SCREENING DIGITAL BREAST TOMOSYNTHESIS MAMMOGRAM WITH CAD HISTORY: SCREENING COMPARISON: 06/19/2020 and 05/18/2017 Bilateral CC and MLO views with tomosynthesis and synthetic mammography submitted. Computer aided det ection analyzed. Breast composition: There are scattered areas of fibroglandular density. No suspicious masses, microc alcifications or architectural distortion. MM/[place] [id number] IMPRESSION: BI-RADS: 1-Negative FOLLOW UP: 1 Year Follow-up
== END 2022-04-09 10:11 | disposition home or self-care (01) ==
LOC: RAD 10:13
PROVIDERS: PCP Nurse Practitioner Family; Visit Provider Nurse Practitioner Family
DX: Z12.31 Encounter for screening mammogram for malignant neoplasm of breast (principal)
CPT/HCPCS: 77063; 77067

== ENCOUNTER 2022-04-10 08:55 | Outpatient (CLI) | payer MEDICARE, OTHER, MEDICAID, SELFPAY ==
[2022-04-10 09:02] VITALS: BMI 38.4
--- NOTE | 2022-04-10 09:03 | ECG_ITS ---
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 Interpretive Statements NAME OF STUDY: LEXISCAN SESTAMIBI STRESS TEST INDICATION: [Shortness of Breath] Procedure: At the baseline, the blood pressure was 145/57 mmHg with a heart rate of 54 bpm. The electrocardiogram showed atrial fibrillation and no significant ST-T wave changes. The Lexiscan was infused over a period of 20 seconds. A total of 0.4 mg of Lexiscan was infused. The stress phase was continued for a total of 5 minutes. Heart rate was at the end of stress phase was 63 bpm and a blood pressure of 130/61 mmHg. The EKG at the peak infusion revealed atrial fibrillation with no significant ST-T wave changes. Occasional PVCs were seen. Sestamibi was injected 20 seconds after the Lexiscan infusion. Blood pressure at the end of recovery phase was 117/60 mmHg with a heart rate of 62 bpm. Occasional PVCs were seen. Conclusion: 1. Normal EKG response to Lexiscan infusion 2. No Lexiscan induced chest pain or cardiac arrhythmia. 3. Normal blood pressure and heart rate response. 4. Sestamibi/sestamibi perfusion scan pending; see separate report. Electronically Signed On 05-04-2022 23:26:12 CDT by Nhan Perrin M.D. [id number]
--- NOTE | 2022-04-10 09:03 | NMCV_ITS ---
NM neal perf SPECT r/s* [id number] Lelia Mcguire Age: 76 Gender: F : 1945 Exam Date: 04/10/2022 10:22 Ordering Phys: Nhan Perrin M.D ([email or web address]) Technologist: NIKUNJ Kim Exam Location: [facility] Indications: SHORTNESS OF BREATH STRESS TEST Please see separate stress test report in [facility] for full findings IMAGE PROTOCOL Rest/Stress 1 Lexiscan Day Radiopharmaceutical Dose (mCi) Administration Site Administered by Rest: Tc-99m 10.6 IV NIKUNJ Kim Sestamibi Stress:Tc-99m 32.7 IV NIKUNJ Ontiveros Sestamibi Rest: 10-Apr-2022 60 Discovery 630 Stress: 10-Apr-2022 30 Discovery 630 0.4mg Lexiscan. Supine position only as patient was unable to lay prone. SPECT RESULTS Technical Quality: Excellent Raw Data Analysis: Normal Image Corrections: No attenuation or motion correction applied Summed Stress Score: 10 Summed Rest Score: 3 Summed Difference Score: 7 PERFUSION FINDINGS There is a moderate area of mostly reversible perfusion defect in the anterolateral, lateral and inferolateral michael. This is consistent with ischemia in the left circumflex and diagonal artery territory FUNCTIONAL RESULTS (calculated via Gated SPECT) Stress Image LV EF (%): 70 Stress EDV (mL):177 TID: 0.99 Stress ESV (mL):53 FUNCTIONAL FINDINGS: There is normal left ventricular systolic function. IMPRESSIONS 1. Abnormal myocardial perfusion imaging with moderate area of ischemia in the left circumflex and diagonal artery territory. 2 2. LV systolic function is normal Nhan Perrin MD (Electronically Signed) Final Date: 13 Apr 2022 21:19 S
[2022-04-10] MEDS: regadenoson 0.4 Mg/5 ml Syringe IVP (11:00)
[2022-04-10 11:29] VITALS: BP 144/64; PULSE 52
== END 2022-04-10 08:56 | disposition home or self-care (01) ==
PROVIDERS: PCP Nurse Practitioner Family; Visit Provider Internal Medicine
DX: R06.02 Shortness of breath (principal)
CPT/HCPCS: 78452; 93017; A9500; J2785

== ENCOUNTER → 2022-04-30 12:16 | Outpatient (BNVA) | payer MEDICARE, OTHER, MEDICAID, SELFPAY | PROVIDERS: PCP Nurse Practitioner Family; Visit Provider Internal Medicine | DX: R94.39 Abnormal result of other cardiovascular function study (principal); Z09 Encounter for follow-up examination after completed treatment for conditions other than malignant neoplasm; Z79.01 Long term (current) use of anticoagulants; I35.2 Nonrheumatic aortic (valve) stenosis with insufficiency; E66.9 Obesity, unspecified; Z68.38 Body mass index [BMI] 38.0-38.9, adult; I27.21 Secondary pulmonary arterial hypertension; I82.519 Chronic embolism and thrombosis of unspecified femoral vein; G47.30 Sleep apnea, unspecified; I48.91 Unspecified atrial fibrillation | CPT/HCPCS: 99214; 99215 ==

== ENCOUNTER 2022-05-07 10:18 | Outpatient (CLI) | payer MEDICARE, OTHER, MEDICAID, SELFPAY ==
[2022-05-07 11:26] LABS: Basophils % 0.7 %; Eosinophils # 0.1 10^3/uL (0.0-0.8); Eosinophils % 2.3 %; Hematocrit 42.5 % (37.0-47.0); Hemoglobin 14.4 g/dL (11.5-15.3); Lymphocytes # 2.1 10^3/uL (0.8-4.8); Lymphocytes % 36.9 %; Mean Corpuscular HGB Conc 33.9 g/dL (30.0-36.0); Mean Corpuscular Hemoglobin 29.4 pg (28.0-34.0); Mean Corpuscular Volume 86.9 fl (81-99); Mean Platelet Volume 11.3 fL (7.4-10.4); Monocytes # 0.4 10^3/uL (0.2-0.9); Monocytes % 7.9 %; Neutrophils # 2.88 10^3/uL (1.8-7.7); Neutrophils % 51.7 %; Nucleated Red Blood Cells % 0 %; Platelet Count 134 10^3/cmm (130-400); Red Blood Count 4.89 10^6/uL (4.1-5.3); White Blood Count 5.6 10^3/uL (4.0-10.0)
[2022-05-07 11:43] LABS: INR 1.98 (0.83-1.21); Prothrombin Time (Patient) 22.8 Seconds (12.0-15.1)
[2022-05-07 11:56] LABS: Blood Urea Nitrogen 18 mg/dL (8-23); Calcium 9.2 mg/dL (8.5-10.5); Carbon Dioxide 24 mmol/L (22-29); Chloride 100 mmol/L (98-107); Glucose 116 mg/dL (65-115); Osmolality Calculated 283 mOsm/kg (285-295); Sodium 135 mmol/L (136-145)
[2022-05-07 12:08] LABS: Anion Gap 15.1 (5-19); Potassium 4.1 mmol/L (3.5-5.1)
== END 2022-05-07 10:19 | disposition home or self-care (01) ==
LOC: LAB 10:26
PROVIDERS: PCP Nurse Practitioner Family; Visit Provider Internal Medicine
DX: R94.39 Abnormal result of other cardiovascular function study (principal); R58 Hemorrhage, not elsewhere classified
CPT/HCPCS: 80048; 85025; 85610

== ENCOUNTER 2022-05-12 07:25 | Outpatient (CLI) | payer MEDICARE, OTHER, MEDICAID, SELFPAY ==
[2022-05-12] VITALS (21 sets, daily range): BP systolic 119–156; BP diastolic 50–70; PULSE 50–85; RESP 12–30; TEMP 36.1–36.8; O2SAT 87–98; BMI 37.9
--- NOTE | 2022-05-12 07:30 | XACV_ITS ---
Exam Room: 2 Ht: 163 cm Wt: 100 kg BSA: 2.18 m2 Gender: Female : 1945 Any Known Allergies: Other Exam Priority: Routine Procedure(s): Procedure Description: Diagnostic procedure Procedure Description: Coronary Angiography Diagnostic Cath Status: Elective Diagnostic Findings * INDICATION: Chest pain/abnormal stress test. * No significant disease noted in the Left Main, Left Anterior Descending, Right, or Circumflex coronary arteries. * Coronary angiography shows right dominance. Conclusions 1. No significant disease noted in the Left Main, Left Anterior Descending, Right, or Circumflex coronary arteries. Recommendations * Aggressive risk factor control. * Outpatient cardiology follow up in 4 weeks. Interventional RX Recommendation: medical therapy and/or counseling Diagnostic RX Recommendation: medical therapy and/or counseling Pressures Phase:Rest AO : 113 / 72 ( 93 ) @ 10:05:00 AM 117 / 83 ( 98 ) @ 10:07:00 AM 127 / 81 ( 106 ) @ 10:13:00 AM Clinical Evaluation EBL: 5mL-10mL Procedural Details Procedure Consent Obtained. Pre-Procedure Time Out. Identified patient by full name and date of as verbalized by the patient/guarantor. Does the consent match the physician's order: Yes. Accurate & Complete Informed Consent: Yes. Inpatient/Outpatient History & Physical on Chart: Yes. If H&P is completed, is and addenduem needed: No; If yes, is the addendum complete: N/A. Visualize and Verify Site with Patient/Guarantor: N/A. Relevant Radiology Images available: Yes. Pre-op teaching completed and patient verbalized understanding. The risks, benefits, and alternatives of sedation and/or procedure were discussed by physician. The patient agrees to continue. Procedure started. [facility] Clinical Fraility Score: 4: Vulnerable. 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 Chest Pain Symptom Assessment: Atypical Angina. Correct patient, site and procedure confirmed by cath team. Current diagnosis: Chest Pain. IV Site on Arrival: 20 gauge in the right anticubital. IV Fluids: 0.9% NaCl at KVO. 0 mL infused prior to labor representative. Pre Procedural Pulses: bilateral dorsalis pedis was 2+. Pre Procedural Pulses: bilateral posterior tibial was 2+. Pre Procedural Pulses: bilateral radial was 3+. Oxygen started at 2liters/min via nasal canula. bilateral groins was prepped with chloroprep then draped in the usual sterile fashion. right radial was prepped with chloroprep then draped in the usual sterile fashion. Physician arrived. Current Diagnosis : Chest Pain. Baseline sample Acquired. HR: 68 BPM. Physician scrubbed in. Immediate Pre-Procedure Time Out. Correct Patient: Yes; Correct Procedure: Yes; Correct Site: Yes; Correct Patient Position: Yes; Correct Supplies: Yes; Dried Flammable Prep: Yes; Blood Products Available: N/A;. Lidocaine 1% infiltrated to the right radial. Arterial access obtained. A 5 korean TIG catheter in over wire. wire out. glidewire inserted. wire out. Multiple views taken of left coronary artery. Catheter redirected to the RCA. Catheter removed over the glide wire. A 5 korean JR4 catheter in over wire. Multiple views taken of right coronary artery. Catheter removed over the glide wire. A TR Band was successful obtaining hemostatsis at the Right Radial artery insertion site. Post Procedure: Pulses reassessed and unchanged. PERRLA. Strong, equal hand economic research assistant bilaterally. No VTE prophylaxis required. Medication's Wasted: Lidocaine 1% = 3 mL. Medication's Wasted: Nitro = 49.6 mg. Contrast type used: Visipaque 320 mgI/mL, 500 mL bottle. Complications: None. Estimated blood loss: 5mL-10mL. Responsiveness - Normal response to verbal stimuli; alert and oriented, PERRLA. Airway - Unaffected, no intervention required; spontaneous ventilation. Circulation: W/N/L, pulses unchanged. Nausea/Vomiting: No. Procedure completed. Patient transferred by bed to 1st floor. Vital chart was stopped. Access Site Site: Right Radial artery Sheath Size: 6 Fr Hemostasis Method: TR Band Hemostasis Success: Successful Procedure Medications Start: 8:46 AM Stop: 8:46 AM Medication: Versed 1 mg and Fentanyl 25 mcg Amount: 1 Route: I.V. Start: 8:53 AM Stop: 8:53 AM Medication: Versed Amount: 1 mg Route: I.V. Start: 9:00 AM Stop: 9:00 AM Medication: Nitrogylcerin Amount: 200 mcg Route: I.A. Start: 9:00 AM Stop: 9:00 AM Medication: Versed Amount: 1 mg Route: I.V. Start: 9:01 AM Stop: 9:01 AM Medication: Heparin Amount: 5000 units Route: I.V. Start: 9:07 AM Stop: 9:07 AM Medication: Versed Amount: 1 mg Route: I.V. Start: 9:15 AM Stop: 9:15 AM Medication: Nitrogylcerin Amount: 200 mcg Route: I.A. I, the attending physician, have reviewed and verified all procedure medications. Yes, all medications given per verbal order History/Risk Factors Hypertension: Yes Dyslipidemia: No Peripheral Arterial Disease (PAD): No Myocardial Infarction (AK): No Obesity: No Renal Disease: No Prior Interventions PCI: No CABG: No Valve Surgery: No Report Signatures Finalized by Nhan Perrin MD on 05/22/2022 10:12 AM
--- NOTE | 2022-05-12 08:52 | P.HPUD_ITS ---
Surgery/Procedure H&P Update DATE OF PROCEDURE: May 12, 2022 DATE H&P PERFORMED: 04/30/22 H&P UPDATE INFORMATION: I have reviewed H&P completed within last 30 days, I have examined patient prior to procedure and No changes to prior documentation PREOP DIAGNOSIS: Chest pain/abnormal stress test PRIMARY INDICATION FOR PROCEDURE: Chest pain/abnormal stress test PLANNED PROCEDURE: Operation Date: 05/12/22 08:30 Proposed Procedures p Cardiac Catheterization(Left) - Nhan Perrin M.D Possible percutaneous coronary intervention PATIENT REASSESSED PRIOR TO SEDATION, WITH NO CHANGE NOTED: Yes PHYSICAL EXAM: alert, oriented x 3, clear to auscultation bilaterally and regular rate & rhythm AIRWAY EVAL/ANESTHESIA PLAN: ASA IV, Local Anesthesia, Risks, benefits & alternatives of sedation and/or procedure discussed and Patient agrees to co ntinue as planned ADDITIONAL INFORMATION: Moderate sedation
[2022-05-12] MEDS: sodium chloride 0.9% 1,000 ML 100 ML IV (09:30)
--- NOTE | 2022-05-12 10:05 | PC.NURSE ---
Pt reported body temp is normally low, nurse informed
--- NOTE | 2022-05-12 12:00 | PC.NURSE ---
TR band removal No hematoma, bleeding or swelling. small bruise noted below right wrist area. Radial pulse is palpable to the touch. Activity restrictions discuss to pt post angiogram home care instructions. handout provided on the educational material. 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
--- NOTE | 2022-05-12 14:23 | PC.NURSE ---
Discharge Note Patient discharged to home via wheelchair/private vehicle accompanied by sister Su. Discharge instructions reviewed with patient and/or accounts payable representative. Mobile pharmacy medications and/or prescriptions provided. Belongings/home medications returned. Discuss to Dr Perrin regarding schedule to resume pt's Xarelto. Per doctor pt can resume her Xarelto tomorrow. Pt informed and she verbalizes understanding.
== END 2022-05-12 14:22 | disposition home or self-care (01) ==
LOC: CCL 07:28 → CSU 10:03
PROVIDERS: PCP Nurse Practitioner Family; Visit Provider Internal Medicine
DX: R07.9 Chest pain, unspecified (principal); R79.89 Other specified abnormal findings of blood chemistry; I10 Essential (primary) hypertension; Z86.718 Personal history of other venous thrombosis and embolism; G47.30 Sleep apnea, unspecified; E66.9 Obesity, unspecified; J44.9 Chronic obstructive pulmonary disease, unspecified; Z79.01 Long term (current) use of anticoagulants; I27.20 Pulmonary hypertension, unspecified; I25.10 Atherosclerotic heart disease of native coronary artery without angina pectoris; Z82.49 Family history of ischemic heart disease and other diseases of the circulatory system; I35.2 Nonrheumatic aortic (valve) stenosis with insufficiency; I27.21 Secondary pulmonary arterial hypertension; I48.91 Unspecified atrial fibrillation
CPT/HCPCS: 36415; 93454; 96360; 99152; 99153; C1769; C1887; C1894; G0378; J1644; J2250; J3010; J3490; J7030; Q9967

== ENCOUNTER 2022-05-20 13:26 | Emergency (ER) | payer MEDICARE, OTHER, MEDICAID, SELFPAY ==
[2022-05-20 13:45] VITALS: BP 181/100; PULSE 74; RESP 20; TEMP 37.4; O2SAT 95; BMI 37.8
--- NOTE | 2022-05-20 13:53 | ED.C_ITS ---
HPI - Psych General: Chief Complaint: Psychiatric Symptoms Stated Complaint: SI, high bp Time Seen by Provider: 05/20/22 13:33 History of Present Illness: Ms. Mcguire is a 76-year-old lady with history of COPD, aortic stenosis, and depression presenting to the emergency department for mental health exam. She reports a longstanding history of depression which she does not feel has been adequately managed or acknowledged. Most recently she was on medication approximately 5 years ago however has not been on the past 5 years and did not feel that that helped as she experienced adverse side effects. She reports worsening depression and hopelessness for the past few days. Primary inciting event is recent complications at [facility]. She describes loss of interest and feeling of hopelessness, she denies sleep disturbance, she does report changes in appetite. She denied specific plan or thoughts of hurting herself or others though apparently did make the statement to someone that she could eat shellfish and not go through all this . Onset (ago): day(s) History of same: Yes Context: significant life stressor Review of Systems General: Reports: 10 or more systems reviewed and unremarkable except in HPI and below PFSH ED PFSH: Medical History (Updated 05/28/22 @ 00:00 by ) Anticoagulation adequate with anticoagulant therapy Aortic insufficiency with aortic stenosis Atrial fibrillation CAD (coronary artery disease) Chest pain Chronic atrial fibrillation COPD (chronic obstructive pulmonary disease) DVT (deep venous thrombosis) Patient has no evidence of any recurrence of the DVT. May continue on the current medications. Hematuria Hypertension Pulmonary arterial hypertension Sleep apnea Symptomatic bradycardia Transaminitis Surgical History H/O left knee surgery H/O right knee surgery H/O tubal ligation History of colonoscopy with polypectomy 2017 History of esophagogastroduodenoscopy (EGD) Status post laparoscopic cholecystectomy (03/06/21) Family History Other CAD (coronary artery disease) Social History Smoking and tobacco status: never smoked Second hand smoke exposure: No Smoking risk assessment/counseling performed?: No Alcohol intake: never Desire information about alcohol rehabilitation?: No Counseling given: No Desire information about substance/drug rehabilitation?: No Counseling given: No Lives independently: Yes Household members: none Marital status: / Current occupational status: retired History of recent travel: No Current gender identity: Female Physical Exam Const: COMMON NORMALS: alert GENERAL APPEARANCE: cooperative and well developed HENMT: COMMON NORMALS: normocephalic and atraumatic HEAD & SCALP: normocephalic and atraumatic THROAT: posterior oropharynx normal Eye: COMMON NORMALS: conjunctivae normal CONJUNCTIVA: Yes conjunctivae normal SCLERA: sclerae normal Neck/C-Spine: COMMON NORMALS: supple GENERAL: Yes trachea midline Resp: COMMON NORMALS: normal respiratory effort and clear to auscultation bilaterally EFFORT & INSPECTION: Yes able to speak in complete sentences AUSCULTATION: clear to auscultation bilaterally Cardio: COMMON NORMALS: regular rate and regular rhythm RATE: regular rate RHYTHM: regular rhythm GI: COMMON NORMALS: Soft to palpation PALPATION: Yes Soft to palpation and No Tenderness to palpation present (GI) Extremity: GENERAL: Yes normal exam except as noted and No edema Neuro: COMMON NORMALS: moves all extremities SENSORIUM/ORIENTATION: Yes kimber rt and No Orientation impaired Psych: COMMON NORMALS: mental status grossly normal and Normal thought process present MOOD & AFFECT: Yes apathetic THOUGHT PROCESS: Normal thought process present Course ED course: - Patient was seen and evaluated by me at bedside - Patient placed on cardiac monitors, IV access obtained - Initial evaluation notable for exam as above. - Labs personally interpreted by me. EKG showing atrial fibrillation with slow ventricular response, occasional PVCs. Patient has known history and is on anticoagulation. - Labs notable for no significant metabolic or hematologic abnormalities. Delta troponin is negative. TSH elevated with normal free T4. Urinalysis not concerning for urinary tract infection given absence of symptoms and squamous epithelial contamination. Toxic ingestions negative. - Patient had cardiac cath on 05/12/2022 which was reviewed. - Upon serial reexamination after treatment the patient was somewhat improved. I recommended admission which the patient adamantly declined. She adamantly denies suicidal or or homicidal intent. - Psychiatry service consulted and evaluated the patient. No indication for hold. I will message case management for home for outpatient follow-up. Upon review of prior records which I do not have access to patient has a history of similar. - Based on patient history, evaluation, and testing as interpreted the most lik ishan cause of the patient's condition is depression - The results of ED evaluation were discussed with the patient including prescriptions and/or symptomatic cares (if applicable) including appropriate and responsible use, followup plan, and return precautions. The patient verbalized understanding and felt safe for discharge. - Patient discharged in satisfactory condition. Note: Click bubbles or prepopulated day in note writing are used for assistance with data collection and billing and are inherently more limited than narrative and other text portions of this note. Please use narrative for additional clinical history and defer to narrative/free test for any case of contradictory information. If information appears in only free text or click bubble it should be considered present or absent as reported. Please contact note blurb writer for clarifications of clinical information or contradictory information. MDM is a brief summary, contradictory or erroneous seeming information should be clarified and full note should be reviewed. Vital Signs: Vital signs: Vital Signs Temperature 98.6 F 05/20/22 20:06 Pulse Rate 62 05/20/22 20:06 Respiratory Rate 18 05/20/22 20:06 Blood Pressure 149/87 05/20/22 20:06 Pulse Oximetry 99 05/20/22 20:06 MDM - Psych Medical Decision Making 76-year-old lady presenting with depression and apparently making suicidal statements. She adamantly denies suicidal or homicidal ideation. Evaluated by psychiatry service and no indication for 96-hour hold. No acute abnormality requiring intervention identified on laboratory studies. Discharged in satisfactory condition. I will message case management for assistance with follow-up. Medical Records I reviewed the patient's medical records. Lab Data I reviewed the patient's lab results. : 05/20/22 14:50 05/20/22 14:50 Laboratory Results WBC 6.2 10^3/uL (4.0-10.0) 05/20/22 14:50 RBC 4.73 10^6/uL (4.1-5.3) 05/20/22 14:50 Hgb 14.2 g/dL (11.5-15.3) 05/20/22 14:50 Hct 41.8 % (37.0-47.0) 05/20/22 14:50 MCV 88.4 fl (81-99) 05/20/22 14:50 MCH 30.0 pg (28.0-34.0) 05/20/22 14:50 MCHC 34.0 g/dL (30.0-36.0) 05/20/22 14:50 RDW 13.9 % (12.1-15.1) 05/20/22 14:50 Plt Count 155 10^3/cmm (130-400) 05/20/22 14:50 MPV 10.6 fL (7.4-10.4) H 05/20/22 14:50 Neut % (Auto) 69.6 % 05/20/22 14:50 Lymph % (Auto) 17.7 % 05/20/22 14:50 [place] % (Auto) 8.9 % 05/20/22 14:50 Eos % (Auto) 2.1 % 05/20/22 14:50 Baso % (Auto) 0.6 % 05/20/22 14:50 Neut # (Auto) 4.31 10^3/uL (1.8-7.7) 05/20/22 14:50 Lymph # (Auto) 1.1 10^3/uL (0.8-4.8) 05/20/22 14:50 [place] # (Auto) 0.6 10^3/uL (0.2-0.9) 05/20/22 14:50 Eos # (Auto) 0.1 10^3/uL (0.0-0.8) 05/20/22 14:50 Baso # (Auto) 0.0 10^3/uL (0.0-0.1) 05/20/22 14:50 Nucleated RBC % (auto) 0 % 05/20/22 14:50 Nucleated RBCs # 0.0 /100WBC 05/20/22 14:50 Sodium 136 mmol/L (136-145) 05/20/22 14:50 Potassium 3.6 mmol/L (3.5-5.1) 05/20/22 14:50 Chloride 98 mmol/L (98-107) 05/20/22 14:50 Carbon Dioxide 24 mmol/L (22-29) 05/20/22 14:50 Anion Gap 17.6 (5-19) 05/20/22 14:50 BUN 18 mg/dL (8-23) 05/20/22 14:50 Creatinine 0.9 mg/dL (0.5-0.9) 05/20/22 14:50 GFR Calculation Not Reportable 05/20/22 14:50 Glucose 96 mg/dL (65-115) 05/20/22 14:50 Calculated Osmolality 284 mOsm/kg (285-295) L 05/20/22 14:50 Calcium 8.9 mg/dL (8.5-10.5) 05/20/22 14:50 Total Bilirubin 0.7 mg/dL (0.15-1.2) 05/20/22 14:50 AST 28 U/L (0-32) 05/20/22 14:50 ALT 22 U/L (0-33) 05/20/22 14:50 Alkaline Phosphatase 60 IU/L (35-105) 05/20/22 14:50 Troponin T Baseline 19 ng/L (0-10) H 05/20/22 14:50 Troponin T 120 Minute 21.21 ng/L (0-10) H 05/20/22 17:15 Delta Troponin T 2.21 ABS# (0-10) 05/20/22 17:15 Total Protein 6.8 g/dL (6.6-8.7) 05/20/22 14:50 Albumin 3.9 g/dL (3.5-5.2) 05/20/22 14:50 Globulin 2.9 g/dL (1.3-4.6) 05/20/22 14:50 TSH 4.82 uIU/mL (0.27-4.20) H 05/20/22 14:50 Free T4 1.23 ng/dL (0.82-1.77) 05/20/22 Unknown Urine Color Yellow (Yellow) 05/20/22 13:51 Urine Appearance Clear (CLEAR) 05/20/22 13:51 Urine pH 5 (5-7) 05/20/22 13:51 Ur Specific [place] 1.025 (1.005-1.030) 05/20/22 13:51 Urine Protein Neg (Negative) 05/20/22 13:51 Urine Glucose (UA) Norm (Normal) 05/20/22 13:51 Urine Ketones Negative (Negative) 05/20/22 13:51 Urine Blood 2+ (Negative) H 05/20/22 13:51 Urine Nitrate Negative (Negative) 05/20/22 13:51 Urine Bilirubin Neg (Negative) 05/20/22 13:51 Urine Urobilinogen Norm mg/dL (Negative) 05/20/22 13:51 Ur Leukocyte Esterase 2+ (Negative) H 05/20/22 13:51 Urine RBC 0-4 /hpf (0-2) H 05/20/22 13:51 Urine WBC 5-10 /hpf (0-5) H 05/20/22 13:51 Ur Squamous Epith Cells 10-15 /hpf (0-5) H 05/20/22 13:51 Calcium Oxalate Crystal 5-10 /hpf H 05/20/22 13:51 Amorphous Sediment 1+ /hpf 05/20/22 13:51 Urine Bacteria 2+ /hpf (NONE) H 05/20/22 13:51 Urine Mucus 1+ /hpf 05/20/22 13:51 Salicylates < 0.3 mg/dL (3-10) L 05/20/22 14:50 Urine Opiates Screen Negative ng/mL (Negative) 05/20/22 13:51 Acetaminophen < 5.0 ug/mL (10-30) L 05/20/22 14:50 Ur Barbiturates Screen Negative ng/mL (Negative) 05/20/22 13:51 Ur Phencyclidine Scrn Negative ng/mL (Negative) 05/20/22 13:51 Ur Amphetamines Screen Negative ng/mL (Negative) 05/20/22 13:51 U Benzodiazepines Scrn Negative ng/mL (Negative) 05/20/22 13:51 Urine Cocaine Screen Negative ng/mL (Negative) 05/20/22 13:51 U Marijuana (THC) Screen Negative ng/mL (Negative) 05/20/22 13:51 Ethyl Alcohol < 10 mg/dL (0-10) 05/20/22 14:50 SARS-CoV-2 Ag (Rapid) Negative (Negative) 05/20/22 14:50 Discharge Plan Discharge Patient Disposition: Home Clinical Impression: Depression Condition: Stable Prescriptions: No Action nitroglycerin 0.4 mg tablet, sublingual 0.4 mg sublingual Q5M PRN (Reason: chest pain) Qty: 25 2RF Rx Instructions: do not exceed 3 doses per episode furosemide 20 mg tablet 40 mg PO DAILY PRN (Reason: Edema) 0RF Xarelto 20 mg tablet 20 mg PO QPM 0RF Hold Instructions: Resume on 03/08/21. potassium chloride 10 mEq tablet extended release 20 meq PO DAILY PRN (Reason: while taking lasix) 0RF cyanocobalamin (vitamin B-12) [Vitamin B-12] 1,000 mcg Tablet 1,000 mcg PO DAILY 0RF lisinopril 2.5 mg tablet 2.5 mg PO QAM 0RF Prolia 60 mg/mL syringe See Rx Instructions .ROUTE .COMPLEX 0RF Rx Instructions: mg subcutaneously EVERY 6 MONTHS calcium carbonate [Calcium 500] 500 mg calcium (1,250 mg) Tablet 500 mg PO DAILY 0RF diclofenac sodium 1 % gel 2 - 4 g TOPICAL QID PRN (Reason: Pain) 0RF cholecalciferol (vitamin D3) [Vitamin D3] 50 mcg (2,000 unit) Tablet 50 mcg PO DAILY 0RF Discharge Orders: Discharge ED (Routine); Ordered 05/20/22 Ordered By: Martin Russo Referrals: Brigitte Mccoy, PROOFREADER [Primary Care Provider] - Discharge Diet: Usual diet Discharge Activity: Resume usual activity Patient Instructions: Depression in Older Adults (ED), Depression Management for Older Adults (ED) Activity Restrictions/Additional Instructions: Thank you for visiting the emergency department. You were seen and evaluated for depression. I believe that you would benefit from initiation of treatment however you are declining inpatient management at this time. I will message case management for assistance with outpatient follow-up. Please follow-up with your primary care provider as well. Please return to the emergency department for thoughts of harming or killing yourself or others, or anything else that you feel needs emergency department evaluation. Coding Level of Care Code ED Account Services Specialist for Isabel [facility]wcarmen Exam Comprehensive
--- NOTE | 2022-05-20 14:21 | ECG_ITS ---
[facility] Test Date: 2022-05-20 Pat Name: Lelia Mcguire Department: Room: Gender: Female Director Software: : 1945 Requested By: Martin Russo Order Number: [id number] Khushbu MD: Ayaan Herron M.D. Measurements Intervals [place] Rate: 69 P: [place]: QRS: 95 QRSD: 90 T: 62 QT: 417 QTc: 448 Interpretive Statements ATRIAL FIBRILLATION WITH ABERRANT CONDUCTION OR VENTRICULAR PREMATURE COMPLEXES BORDERLINE RIGHT AXIS DEVIATION [QRS AXIS > 90] SEPTAL MYOCARDIAL INFARCTION , OF INDETERMINATE AGE [40+ ms Q WAVE IN V1/V2] Compared to ECG 05/30/2021 22:45:11 Ventricular premature complex(es) now present Aberrant conduction of supraventricular beat(s) now present Myocardial infarct finding now present ST (T wave) deviation no longer present Electronically Signed On 05-20-2022 16:53:22 CDT by Ayaan Herron M.D. [id number]
[2022-05-20 14:45] VITALS: BP 171/73; PULSE 63; RESP 18; O2SAT 96
[2022-05-20 14:58] LABS: Basophils % 0.6 %; Eosinophils # 0.1 10^3/uL (0.0-0.8); Eosinophils % 2.1 %; Hematocrit 41.8 % (37.0-47.0); Hemoglobin 14.2 g/dL (11.5-15.3); Lymphocytes # 1.1 10^3/uL (0.8-4.8); Lymphocytes % 17.7 %; Mean Corpuscular Volume 88.4 fl (81-99); Mean Platelet Volume 10.6 fL (7.4-10.4); Monocytes # 0.6 10^3/uL (0.2-0.9); Monocytes % 8.9 %; Neutrophils # 4.31 10^3/uL (1.8-7.7); Neutrophils % 69.6 %; Nucleated Red Blood Cells % 0 %; Platelet Count 155 10^3/cmm (130-400); Red Blood Count 4.73 10^6/uL (4.1-5.3); Red Cell Distribution Width 13.9 % (12.1-15.1); White Blood Count 6.2 10^3/uL (4.0-10.0)
[2022-05-20 15:14] LABS: Add Urine Microscopic? YES; Bilirubin Urine Neg (Negative); Blood Urine 2+ (Negative); Glucose Urine UA Norm (Normal); Ketones Urine Negative (Negative); Leukocyte Esterase Urine 2+ (Negative); Nitrate Urine Negative (Negative); Protein Urine Neg (Negative); Specific Gravity, Urine 1.025 (1.005-1.030); Urine Appearance Clear (CLEAR); Urine Color Yellow (Yellow); Urobilinogen Urine Norm (Negative); pH Urine 5 (5-7)
[2022-05-20 15:15] LABS: Add Urine Culture? No; Amorphous Sediment Urine 1+ /hpf; Bacteria Urine 2+ /hpf; Mucus Urine 1+ /hpf; RBC Urine 0-4 /hpf (0-2)
[2022-05-20 15:20] LABS: Amphetamines Screen Urine Negative (Negative); Barbiturates Screen Urine Negative (Negative); Benzodiazepines Screen Urine Negative (Negative); Cocaine Screen Urine Negative (Negative); Opiate Screen Urine Negative (Negative); PCP Screen Urine Negative (Negative); THC Screen Urine Negative (Negative)
[2022-05-20 15:27] LABS: SARS Covid-2 Antigen Negative (Negative); Troponin(5th) Baseline 19 ng/L (0-10)
[2022-05-20 15:32] LABS: Alanine Aminotransferase 22 U/L (0-33); Albumin Level 3.9 g/dL (3.5-5.2); Alkaline Phosphatase 60 IU/L (35-105); Aspartate Amino Transferase 28 U/L (0-32); Blood Urea Nitrogen 18 mg/dL (8-23); Calcium 8.9 mg/dL (8.5-10.5); Carbon Dioxide 24 mmol/L (22-29); Chloride 98 mmol/L (98-107); Globulin 2.9 g/dL (1.3-4.6); Glucose 96 mg/dL (65-115); Osmolality Calculated 284 mOsm/kg (285-295); Sodium 136 mmol/L (136-145); Thyroid Stimulating Hormone 4.82 uIU/mL (0.27-4.20); Total Bilirubin 0.7 mg/dL (0.15-1.2); Total Protein 6.8 g/dL (6.6-8.7)
[2022-05-20 15:35] LABS: Acetaminophen < 5.0 ug/mL (10-30); Alcohol Level < 10 mg/dL (0-10); Anion Gap 17.6 (5-19); Potassium 3.6 mmol/L (3.5-5.1); Salicylate < 0.3 mg/dL (3-10)
[2022-05-20 15:45] VITALS: BP 164/74; PULSE 59; RESP 18; O2SAT 94
[2022-05-20 16:07] LABS: Free T4 Free Thyroxine 1.23 ng/dL (0.82-1.77)
--- NOTE | 2022-05-20 16:21 | ECG_ITS ---
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 Measurements Intervals [place] Rate: 56 P: [place]: QRS: 96 QRSD: 91 T: 75 QT: 432 QTc: 420 Interpretive Statements ATRIAL FIBRILLATION WITH SLOW VENTRICULAR RESPONSE WITH ABERRANT CONDUCTION OR VENTRICULAR PREMATURE COMPLEXES BORDERLINE RIGHT AXIS DEVIATION [QRS AXIS > 90] SEPTAL MYOCARDIAL INFARCTION , OF INDETERMINATE AGE [40+ ms Q WAVE IN V1/V2] Compared to ECG 05/20/2022 14:26:27 No significant changes Electronically Signed On 05-20-2022 16:59:17 CDT by Ayaan Herron M.D. [id number]
--- NOTE | 2022-05-20 16:21 | PC.PHAR ---
pt states she takes care of her own medications-pt states she is no longer using the symbicort inhaler 80/4.5 filled on 08/12/21 90d/s-notes are made in the pharmacy comments
[2022-05-20 16:45] VITALS: BP 158/60; PULSE 60; RESP 18; O2SAT 96
[2022-05-20 17:53] LABS: Troponin 5 2HR 21.21 ng/L (0-10)
[2022-05-20 18:04] LABS: Troponin 5 2HR Delta 2.21 ABS# (0-10)
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
[2022-05-20 20:06] VITALS: BP 149/87; PULSE 62; RESP 18; TEMP 37; O2SAT 99
--- NOTE | 2022-05-30 12:44 | DCPLANNER ---
project manager process development had message to schedule follow up appointment for patient with [facility]. project manager process development sent patients information to the front office staff at [facility]. Patients information will be printed and reviewed. Clinic will call patient with appointment information.
== END 2022-05-20 20:09 | disposition home or self-care (01) ==
PROVIDERS: Emergency Provider Emergency Medicine; PCP Nurse Practitioner Family
DX: F32.A Depression, unspecified (principal); I10 Essential (primary) hypertension; I25.10 Atherosclerotic heart disease of native coronary artery without angina pectoris; J44.9 Chronic obstructive pulmonary disease, unspecified; Z20.822 Contact with and (suspected) exposure to COVID-19
CPT/HCPCS: 80053; 80306; 80307; 81001; 84439; 84443; 84484; 85025; 87426; 93005; 99283

== ENCOUNTER → 2022-05-22 08:23 | Outpatient (BNVA) | payer MEDICARE, OTHER, MEDICAID, SELFPAY | PROVIDERS: PCP Nurse Practitioner Family; Visit Provider Nurse Practitioner Family | DX: I25.10 Atherosclerotic heart disease of native coronary artery without angina pectoris (principal); F32.A Depression, unspecified; I10 Essential (primary) hypertension | CPT/HCPCS: 99213 ==

== ENCOUNTER 2022-06-16 11:29 | Observation (INO) | payer MEDICARE, OTHER, MEDICAID, SELFPAY ==
[2022-06-16] VITALS (7 sets, daily range): BP systolic 120–167; BP diastolic 45–70; PULSE 0–70; RESP 16–24; TEMP 36.5–36.6; O2SAT 94–97; BMI 37.8; BMI 38.6
--- NOTE | 2022-06-16 11:03 | W.ED.GENADLT ---
HPI - General Adult General: Chief complaint: General Medical Stated complaint: WEAKNESS History of Present Illness: Patient is a 76-year-old female with history of CHF, atrial fibrillation on Eliquis, aortic stenosis, DVT presenting to the emergency room for evaluation of generalized weakness, palpitations, shortness of breath and chest pain since 8 days ago. Patient tells me that she has become increasingly short of breath for the last 8 days despite taking her Lasix compliantly. Patient is on Lasix 20 mg twice daily. Patient denies any leg swelling. Patient also reports that her heart rate usually dips in the 40s to 50s. In addition, patient reports intermittent chest pressure at rest. Patient required multiple doses of nitro with relief of chest pain. Patient also reports left upper flank lower rib area pain for the last few days. Patient denies any pleuritic chest pain, reports chronic cough, denies any diarrhea melena hematochezia. Patient denies any fever/chills. Patient has no complaints. Patient is compliant with his xarelto. Onset:8 days ago Duration: 8days Location:home Severity:moderate Associated symptoms: Reports chest pain, dyspnea and palpitations; Deny nausea, rash or vomiting Review of Systems Const: Denies: fever(s) or chills Eyes: Denies: change in vision ENMT: Denies: mouth pain Card: Reports: chest pain and palpitations Resp: Reports: dyspnea and non-productive cough GI: Denies: abdominal pain, nausea, vomiting or diarrhea : Denies: dysuria Musc: Denies: extremity pain Skin/Breast: Denies: rash or new lesions Neuro: Denies: weakness in extremities Psych: Reports: other (Normal mood) Sarkis/Lymph: Denies: easy bruising PFSH ED PFSH: Medical History Anticoagulation adequate with anticoagulant therapy Aortic insufficiency with aortic stenosis Atrial fibrillation CAD (coronary artery disease) Chest pain Chronic atrial fibrillation COPD (chronic obstructive pulmonary disease) DVT (deep venous thrombosis) Patient has no evidence of any recurrence of the DVT. May continue on the current medications. Hematuria Hypertension Pulmonary arterial hypertension Sleep apnea Symptomatic bradycardia Transaminitis Surgical History H/O left knee surgery H/O right knee surgery H/O tubal ligation History of colonoscopy with polypectomy 2017 History of esophagogastroduodenoscopy (EGD) Status post laparoscopic cholecystectomy (03/06/21) Family History Other CAD (coronary artery disease) Social History Smoking and tobacco status: never smoked Second hand smoke exposure: No Smoking risk assessment/counseling performed?: No Alcohol intake: never Desire information about alcohol rehabilitation?: No Counseling given: No Desire information about substance/drug rehabilitation?: No Counseling given: No Lives independently: Yes Household members: none Marital status: / Current occupational status: retired History of recent travel: No Current gender identity: Female Physical Exam Const: COMMON NORMALS: alert HENMT: COMMON NORMALS: atraumatic HEAD & SCALP: atraumatic MOUTH: moist mucous membranes not abnormal Eye: COMMON NORMALS: EOMs intact bilaterally and conjunctivae normal CONJUNCTIVA: Yes conjunctivae normal Neck/C-Spine: COMMON NORMALS: full ROM and supple Resp: COMMON NORMALS: normal respiratory effort and clear to auscultation bilaterally AUSCULTATION: clear to auscultation bilaterally Cardio: OTHER: +irregular irregular heart rate GI: COMMON NORMALS: Soft to palpation and non-tender PALPATION: Yes Soft to palpation OTHER: No focal TTP. NO guarding rebound, guarding, rigidity. No CVA tenderness to percussion. Neg Maldonado/Neg McBurney's point tenderness, no suprabupic tenderness to palpation. Extremity: COMMON NORMALS: full ROM OTHER: 1+ edema in the extremities b/l Neuro: SENSORIUM/ORIENTATION: Yes alert MOTOR EXAM: No Abnormal motor strength present and Other motor observations present (no focal motor deficits) Psych: COMMON NORMALS: speech normal SPEECH: Yes normal speech MOOD & AFFECT: Yes euthymic mood Course Vital Signs: Vital signs: Vital Signs Temperature 98.0 F 06/17/22 11:52 Pulse Rate 54 L 06/17/22 11:52 Respiratory Rate 17 06/17/22 11:52 Blood Pressure 132/55 06/17/22 11:52 Pulse Oximetry 94 06/17/22 11:52 Oxygen Delivery Me thod 06/17/22 11:52 [facility] - General Adult Medical Decision Making Patient is a 76-year-old female with history of CHF, atrial fibrillation on Eliquis, aortic stenosis, DVT presenting to the emergency room for evaluation of generalized weakness, palpitations. shortness of breath and chest pain since 8 days ago. On exam, patient has clear lung sounds bilaterally. Patient has 1+ edema in the lower extremity. Patient is noted to be in atrial fibrillation on the monitor with heart rate in the 40s to 50s. EKG is nonischemic. Troponin x2 within normal limit. Echo from 10/2021 showed mild to moderate aortic stenosis. Patient symptoms consistent with possible progression of aortic stenosis. I have keep patient hospital for further evaluation. Patient is COVID-negative. X-ray chest appears to be clear. UA showed possible early UTI. There is 2+ blood noted on UA. CT abdomen pelvis not showing signs of stones. Incidental findings of calcified uterine fibroids discussed extensively with patient. Patient received a copy of the CT report with the documented findings. Patient is instructed to follow up urgently with specialists. Patient will be admitted to hospital for repeat echo as her echo is not due until August for concern of worsening aortic stenosis. Lab Data : 06/17/22 02:47 06/17/22 02:47 Radiology Impressions Chest X-Ray 06/16/22 11:13 IMPRESSION: 1. Moderately enlarged heart with ectatic thoracic aorta. 2. No pneumonia. Abdomen/Pelvis CT 06/16/22 12:26 IMPRESSION: 1. No hydronephrosis in either kidney. No obstructing renal or ureteral calculi. 2. Small esophageal hiatal hernia. 3. Prior cholecystectomy. 4. Calcified uterine fundal fibroids the largest measuring 4.8 x 4.4 cm. 5. Fat-containing umbilical hernia appears progressed compared to previous. No herniated bowel. 6. Sigmoid diverticulosis. No evidence of acute diverticulitis. Laboratory Results WBC 6.1 10^3/uL (4.0-10.0) 06/16/22 11:30 RBC 4.80 10^6/uL (4.1-5.3) 06/16/22 11:30 Hgb 14.4 g/dL (11.5-15.3) 06/16/22 11:30 Hct 44.1 % (37.0-47.0) 06/16/22 11:30 MCV 91.9 fl (81-99) 06/16/22 11:30 MCH 30.0 pg (28.0-34.0) 06/16/22 11:30 MCHC 32.7 g/dL (30.0-36.0) 06/16/22 11:30 RDW 14.0 % (12.1-15.1) 06/16/22 11:30 Plt Count 155 10^3/cmm (130-400) 06/16/22 11:30 MPV 10.7 fL (7.4-10.4) H 06/16/22 11:30 Neut % (Auto) 58.7 % 06/16/22 11:30 Lymph % (Auto) 29.9 % 06/16/22 11:30 [place] % (Auto) 7.8 % 06/16/22 11:30 Eos % (Auto) 2.4 % 06/16/22 11:30 Baso % (Auto) 0.7 % 06/16/22 11:30 Neut # (Auto) 3.60 10^3/uL (1.8-7.7) 06/16/22 11:30 Lymph # (Auto) 1.8 10^3/uL (0.8-4.8) 06/16/22 11:30 [place] # (Auto) 0.5 10^3/uL (0.2-0.9) 06/16/22 11:30 Eos # (Auto) 0.2 10^3/uL (0.0-0.8) 06/16/22 11:30 Baso # (Auto) 0.0 10^3/uL (0.0-0.1) 06/16/22 11:30 Nucleated RBC % (auto) 0 % 06/16/22 11:30 Nucleated RBCs # 0.0 /100WBC 06/16/22 11:30 Sodium 140 mmol/L (136-145) 06/16/22 11:30 Potassium 3.9 mmol/L (3.5-5.1) 06/16/22 11:30 Chloride 102 mmol/L (98-107) 06/16/22 11:30 Carbon Dioxide 27 mmol/L (22-29) 06/16/22 11:30 Anion Gap 14.9 (5-19) 06/16/22 11:30 BUN 18 mg/dL (8-23) 06/16/22 11:30 Creatinine 0.7 mg/dL (0.5-0.9) 06/16/22 11:30 GFR Calculation Not Reportable 06/16/22 11:30 Glucose 92 mg/dL (65-115) 06/16/22 11:30 Calculated Osmolality 292 mOsm/kg (285-295) 06/16/22 11:30 Calcium 9.3 mg/dL (8.5-10.5) 06/16/22 11:30 Total Bilirubin 0.7 mg/dL (0.15-1.2) 06/16/22 11:30 AST 22 U/L (0-32) 06/16/22 11:30 ALT 17 U/L (0-33) 06/16/22 11:30 Alkaline Phosphatase 60 IU/L (35-105) 06/16/22 11:30 Troponin T Baseline 19 ng/L (0-10) H 06/16/22 11:30 Troponin T 120 Minute 18.22 ng/L (0-10) H 06/16/22 13:11 Delta Troponin T -0.78 ABS# (0-10) L 06/16/22 13:11 NT-Pro-B Natriuret Pep 670 pg/mL (0-450) H 06/16/22 11:30 Total Protein 6.5 g/dL (6.6-8.7) L 06/16/22 11:30 Albumin 3.8 g/dL (3.5-5.2) 06/16/22 11:30 Globulin 2.7 g/dL (1.3-4.6) 06/16/22 11:30 Lipase 19 U/L (13-60) 06/16/22 11:30 Urine Color Yellow (Yellow) 06/16/22 11:50 Urine Appearance Clear (CLEAR) 06/16/22 11:50 Urine pH 6 (5-7) 06/16/22 11:50 Ur Specific [place] 1.020 (1.005-1.030) 06/16/22 11:50 Urine Protein Neg (Negative) 06/16/22 11:50 Urine Glucose (UA) Norm (Normal) 06/16/22 11:50 Urine Ketones Negative (Negative) 06/16/22 11:50 Urine Blood 2+ (Negative) H 06/16/22 11:50 Urine Nitrate Negative (Negative) 06/16/22 11:50 Urine Bilirubin Neg (Negative) 06/16/22 11:50 Urine Urobilinogen Norm mg/dL (Negative) 06/16/22 11:50 Ur Leukocyte Esterase 2+ (Negative) H 06/16/22 11:50 Urine RBC 0-4 /hpf (0-2) H 06/16/22 11:50 Urine WBC 10-15 /hpf (0-5) H 06/16/22 11:50 Ur Squamous Epith Cells 10-15 /hpf (0-5) H 06/16/22 11:50 Amorphous Sediment Not Reportable 06/16/22 11:50 Urine Bacteria 2+ /hpf (NONE) H 06/16/22 11:50 Influenza Type A Ag Negative (Negative) 06/16/22 11:34 Influenza Type B Ag Negative (Negative) 06/16/22 11:34 SARS-CoV-2 Ag (Rapid) Negative (Negative) 06/16/22 11:34 Imaging Data Other Imaging: Radiologist's impression: [place] [address] CT Scan Report Signed Patient: Lelia Mcguire I Unit #: [id number] : 1945 Age/Sex: 76 / F ADM Date: 06/16/22 Loc: ER Room/Bed: Attending Dr: Ordering Provider/Ordering MD: Bar Peterson MD Date of Service: 06/16/22 Procedure(s): CT abdomen pelvis con [id number] Accession Number(s): [id number] Report Number: [id number] WS: [id number] CT ABDOMEN PELVIS TECHNIQUE: Noncontrast CT of the abdomen and pelvis with coronal and sagittal reformatted images. CLINICAL INFORMATION: possible stone, L sided flank pain COMPARISON: March 10, 2021 DLP: 951.[address] scans at [facility] use at least one of these dose optimization techniques: automated exposure control; mA and/or kV adjustment per patient size (includes targeted exams where dose is matched to clinical indication); or iterative reconstruction. FINDINGS: Lung bases are well aerated. Small esophageal hiatal hernia. Both ureters are decompressed. No obstructing ureteral calculi. Lower pole LEFT renal cyst measuring 2.5 cm. Adrenal glands are normal. Small LEFT adrenal adenoma measuring 9 mm. Noncontrast liver is normal. Normal noncontrast spleen. Fatty atrophy of the pancreas. Normal caliber abdominal aorta. Aortic calcification. Splenic artery calcification. Fat-containing umbilical hernia. No herniated bowel. Sigmoid diverticulosis. No evidence of acute diverticulitis. No evidence of high-grade small or large bowel obstruction. Slight anterolisthesis L4 on L5. Lobulated calcified uterine fibroids the largest measuring 4.8 x 4.4 CM. Normal appendix in the RIGHT lower quadrant. Advanced degenerative arthritis RIGHT greater than LEFT hip with subchondral cystic change. CT/CT abdomen pelvis wo con [id number] IMPRESSION: ? 1.? No hydronephrosis in either kidney. No obstructing renal or ureteral calculi. 2.? Small esophageal hiatal hernia. 3.? Prior cholecystectomy. 4.? Calcified uterine fundal fibroids the largest measuring 4.8 x 4.4 cm. 5.? Fat-containing umbilical hernia appears progressed compared to previous. No herniated bowel. 6.? Sigmoid diverticulosis. No evidence of acute diverticulitis. ? Dictated By: David Conner MD Signed By: David Conner MD Signed Date/Time: 06/16/22 1331 DD/ [address] [address] XRay Report Signed Patient: Lelia Mcguire I Unit #: [id number] : 1945 Age/Sex: 76 / F ADM Date: 06/16/22 Loc: ER Room/Bed: Attending Dr: Ordering Provider/Ordering MD: Bar Peterson MD Date of Service: 06/16/22 Procedure(s): XR chest 1V portable [id number] Accession Number(s): [id number] Report Number: [id number] WS: [id number] PORTABLE CHEST HISTORY: dyspnea COMPARISON: 05/30/2021 Lungs are clear and well expanded. No pleural effusion or pneumothorax. Cardiac size: Moderately enlarged cardiac silhouette is similar to the prior examination. Mediastinum/Aorta: Ectasia thoracic aorta with mild calcification. No osseous abnormality seen. XR/XR chest 1V portable [id number] IMPRESSION: ? 1.? Moderately enlarged heart with ectatic thoracic aorta. 2.? No pneumonia. ? ? ? 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
--- NOTE | 2022-06-16 11:13 | XR_ITS ---
WS: [id number] PORTABLE CHEST HISTORY: dyspnea COMPARISON: 05/30/2021 Lungs are clear and well expanded. No pleural effusion or pneumothorax. Cardiac size: Moderately enlarged cardiac silhouette is similar to the prior examination. Mediastinum/Aorta: Ectasia thoracic aorta with mild calcification. No osseous abnormality seen. XR/XR chest 1V portable [id number] IMPRESSION: 1. Moderately enlarged heart with ectatic thoracic aorta. 2. No pneumonia.
--- NOTE | 2022-06-16 11:29 | ECG_ITS ---
[facility] Test Date: 2022-06-16 Pat Name: Lelia Mcguire Department: Room: Gender: Female Coding Support Specialist: : 1945 Requested By: Bar Peterson Order Number: [id number] Reading MD: Ayaan Herron M.D. Measurements Intervals [place] Rate: 49 P: ME: QRS: 95 QRSD: 103 T: 76 QT: 476 QTc: 432 Interpretive Statements ATRIAL FIBRILLATION WITH SLOW VENTRICULAR RESPONSE BORDERLINE RIGHT AXIS DEVIATION [QRS AXIS > 90] MODERATE ST DEPRESSION [0.05+ mV ST DEPRESSION] Compared to ECG 05/20/2022 16:20:36 ST (T wave) deviation now present Aberrant conduction of supraventricular beat(s) no longer present Ventricular premature complex(es) no longer present Myocardial infarct finding no longer present Electronically Signed On 06-17-2022 7:04:23 CDT by Ayaan Herron M.D. [id number]
[2022-06-16 11:42] LABS: Basophils % 0.7 %; Eosinophils # 0.2 10^3/uL (0.0-0.8); Eosinophils % 2.4 %; Hematocrit 44.1 % (37.0-47.0); Hemoglobin 14.4 g/dL (11.5-15.3); Lymphocytes # 1.8 10^3/uL (0.8-4.8); Lymphocytes % 29.9 %; Mean Corpuscular HGB Conc 32.7 g/dL (30.0-36.0); Mean Corpuscular Volume 91.9 fl (81-99); Mean Platelet Volume 10.7 fL (7.4-10.4); Monocytes # 0.5 10^3/uL (0.2-0.9); Monocytes % 7.8 %; Neutrophils % 58.7 %; Nucleated Red Blood Cells % 0 %; Platelet Count 155 10^3/cmm (130-400); White Blood Count 6.1 10^3/uL (4.0-10.0)
[2022-06-16 12:15] LABS: Troponin(5th) Baseline 19 ng/L (0-10)
[2022-06-16 12:22] LABS: Add Urine Microscopic? YES; Bacteria Urine 2+ /hpf; Bilirubin Urine Neg (Negative); Blood Urine 2+ (Negative); Glucose Urine UA Norm (Normal); Ketones Urine Negative (Negative); Leukocyte Esterase Urine 2+ (Negative); Nitrate Urine Negative (Negative); Protein Urine Neg (Negative); RBC Urine 0-4 /hpf (0-2); Urine Appearance Clear (CLEAR); Urine Color Yellow (Yellow); Urobilinogen Urine Norm (Negative); pH Urine 6 (5-7)
[2022-06-16 12:22] LABS: Alanine Aminotransferase 17 U/L (0-33); Albumin Level 3.8 g/dL (3.5-5.2); Alkaline Phosphatase 60 IU/L (35-105); Blood Urea Nitrogen 18 mg/dL (8-23); Calcium 9.3 mg/dL (8.5-10.5); Carbon Dioxide 27 mmol/L (22-29); Chloride 102 mmol/L (98-107); Globulin 2.7 g/dL (1.3-4.6); Glucose 92 mg/dL (65-115); Lipase 19 U/L (13-60); NT Pro B Type Natriuretic Pept 670 pg/mL (0-450); Osmolality Calculated 292 mOsm/kg (285-295); Sodium 140 mmol/L (136-145); Total Bilirubin 0.7 mg/dL (0.15-1.2); Total Protein 6.5 g/dL (6.6-8.7)
[2022-06-16 12:23] LABS: Add Urine Culture? No
[2022-06-16 12:25] LABS: Influenza A by IFA Negative (Negative); Influenza B by IFA Negative (Negative); SARS Covid-2 Antigen Negative (Negative)
[2022-06-16 12:26] LABS: Anion Gap 14.9 (5-19); Aspartate Amino Transferase 22 U/L (0-32); Potassium 3.9 mmol/L (3.5-5.1)
--- NOTE | 2022-06-16 12:26 | CT_ITS ---
WS: [id number] CT ABDOMEN PELVIS TECHNIQUE: Noncontrast CT of the abdomen and pelvis with coronal and sagittal reformatted images. CLINICAL INFORMATION: possible stone, L sided flank pain COMPARISON: March 10, 2021 DLP: 951.[address] scans at [facility] use at least one of these dose optimization techniques: automated e xposure control; mA and/or kV adjustment per patient size (includes targeted exams where dose is matc hed to clinical indication); or iterative reconstruction. FINDINGS: Lung bases are well aerated. Small esophageal hiatal hernia. Both ureters are decompressed. No obstru cting ureteral calculi. Lower pole LEFT renal cyst measuring 2.5 cm. Adrenal glands are normal. Small LEFT adrenal adenoma measuring 9 mm. Noncontrast liver is normal. Normal noncontrast spleen. Fatty atrophy of the pancreas. Normal caliber abdominal aorta. Aortic calcification. Splenic artery calcification. Fat-containing umbilical hernia . No herniated bowel. Sigmoid diverticulosis. No evidence of acute diverticulitis. No evidence of high-grade small or large bowel obstruction. Slight anterolisthesis L4 on L5. Lobulated calcified uterine fibroids the largest measuring 4.8 x 4.4 CM. Normal appendix in the RIGHT lower quadrant. Advanced degenerative arthritis RIGHT greater than LEFT hip with subchondral cystic change. CT/CT abdomen pelvis wo con [id number] IMPRESSION: 1. No hydronephrosis in either kidney. No obstructing renal or ureteral calcul i. 2. Small esophageal hiatal hernia. 3. Prior cholecystectomy. 4. Calcified uterine fundal fibroids the largest measuring 4.8 x 4.4 cm. 5. Fat-containing umbilical hernia appears progressed compared to previous. No herniated bowel. 6. Sigmoid diverticulosis. No evidence of acute diverticulitis.
--- NOTE | 2022-06-16 13:14 | ECG_ITS ---
[facility] Test Date: 2022-06-16 Pat Name: Lelia Mcguire Department: Room: Gender: Female Supervisor Forming Department: : 1945 Requested By: Bar Peterson Order Number: [id number] Reading MD: Brayden Nguyen M.D. Measurements Intervals [place] Rate: 47 P: IA: QRS: 80 QRSD: 93 T: 29 QT: 468 QTc: 416 Interpretive Statements ATRIAL FIBRILLATION WITH SLOW VENTRICULAR RESPONSE MINIMAL ST DEPRESSION [0.025+ mV ST DEPRESSION] ABNORMAL RHYTHM ECG Compared to ECG 06/16/2022 11:29:31 No significant changes Electronically Signed On 06-17-2022 21:20:54 CDT by Brayden Nguyen M.D. [id number]
[2022-06-16] MEDS: cefTRIAXone 1,000 MG in sodium chloride 0.9% (plus) 50 ML 100 MG IV (13:28)
--- NOTE | 2022-06-16 14:00 | PC.PHAR ---
pt states she takes care of her own medication-pt states she had a symbicort inhaler that she no longer uses ext med history shows last filled 08/12/22 90d/s
[2022-06-16 14:35] LABS: Troponin 5 2HR 18.22 ng/L (0-10)
[2022-06-16 14:46] LABS: Troponin 5 2HR Delta -0.78 ABS# (0-10)
--- NOTE | 2022-06-16 15:03 | PM.HP ---
Providers/Chief Complaint Primary Care Provider: Ric Esquivel DO Chief Complaint: WEAKNESS History of Present Illness Lelia Mcguire is a 76 year old female with past medical history of DVT, atrial fibrillation, sleep apnea, obesity, aortic stenosis, aortic insufficiency, hypertension, COPD, anticoagulation with Xarelto, severe pulmonary hypertension presented to the ER with complaint of shortness of breath for the last 8 days. She said this started around Thursday. She has also had pain in her left arm and has coughed all day. She says at times she gets diaphoretic randomly. She states overall she is gotten weaker and weaker over the last few months and gets tired very easily. She says she has been taking nitro on and off since Thursday. The pain does get better with it. She does have an aide that comes to the hospital laundry and cleaning. She states her previous admission the aid she was suicidal and therefore called the hospital. She says since then she has fired that aid. At this time she is not having chest pain or shortness of breath. She says she has seen several deputy bailiff in the past and no one has been able to help her. There has been an acute event recently that brought her to the hospital. She does have lower extremity edema that she says has been chronic for her. She reports compliance to medications. Overall she feels deconditioned. ED course: Blood pressure 167/63, respirate 19, pulse 67, temperature 97.9. EKG did not show acute ischemic changes. On the monitor heart rate 40s to 50s noted to be in atrial fibrillation. Troponins x2 within normal limit. Echo did show mild to moderate aortic stenosis. UA abnormal, Review of Systems Const: Denies: fever(s) Eyes: Denies: change in vision ENMT: Denies: throat pain Card: Denies: chest pain Resp: Reports: dyspnea GI: Denies: abdominal pain : Denies: flank pain Musc: Denies: neck pain Skin/Breast: Denies: rash Neuro: Denies: headache(s) Psych: Reports: anxiety and depression Endo: Denies: polyuria Sarkis/Lymph: Denies: easy bruising All/Imm: Denies: urticaria Medications/Allergies Home Medications Medication Instructions Recorded Confirmed Last Taken Type rivaroxaban 20 mg tablet (Xarelto) 20 mg PO QPM 12/16/19 06/16/22 06/15/22 History furosemide 20 mg tablet 40 mg PO DAILY PRN Edema 05/23/21 06/16/22 06/15/22 History potassium chloride 10 mEq 20 meq PO DAILY PRN while taking 05/23/21 06/16/22 06/15/22 History tablet,extended release lasix cyanocobalamin (vitamin B-12) 1,000 mcg PO QPM 05/30/21 06/16/22 06/15/22 History 1,000 mcg tablet (Vitamin B-12) denosumab 60 mg/mL subcutaneous See Rx Instructions .Route .COMPLEX 05/30/21 06/16/22 02/14/22 History syringe (Prolia) lisinopril 2.5 mg tablet 2.5 mg PO QAM 05/30/21 06/16/22 06/16/22 06:00 History nitroglycerin 0.4 mg sublingual 0.4 mg sublingual Q5M PRN chest 03/20/22 06/16/22 Unknown Rx tablet pain #25 tabs calcium carbonate 500 mg calcium 500 mg PO QPM 05/20/22 06/16/22 06/15/22 History (1,250 mg) tablet cholecalciferol (vitamin D3) 50 50 mcg PO QPM 05/20/22 06/16/22 06/15/22 History mcg (2,000 unit) tablet (Vitamin D3) Allergies Allergy/AdvReac Type Severity Reaction Status Date / Time iodine Allergy Unknown ALGY-Bliste Verified 06/16/22 13:33 r metoprolol Allergy Unknown Unknown Verified 06/16/22 13:33 alcohol Allergy ALGY-Hives Verified 06/16/22 13:33 alfalfa Allergy ALGY-Rash Verified 06/16/22 13:33 aloe vera Allergy ALGY-Bliste Verified 06/16/22 13:33 r atenolol Allergy ALGY-Swell Verified 06/16/22 13:33 Lip/Tongue/Throat bamboo Allergy ALGY-Rash Verified 06/16/22 13:33 barley Allergy ALGY-Rash Verified 06/16/22 13:33 bran Allergy ALGY-Hives Verified 06/16/22 13:33 Rheems And Derivatives Allergy ALGY-Hives Verified 06/16/22 13:33 clams Allergy ALGY-Difficulty Verified 06/16/22 13:33 Swallowing crab Allergy Unknown Verified 06/16/22 13:33 crayfish Allergy Unknown Verified 06/16/22 13:33 diphenhydramine Allergy ADR-Itching Verified 06/16/22 13:33 [From Benadryl] epinephrine Allergy ADR/ALGY-Pa Verified 06/16/22 13:33 lpitations grapefruit Allergy Unknown Verified 06/16/22 13:33 grass pollen Allergy ALGY-Rash Verified 06/16/22 13:33 juniper tar Allergy Unknown Verified 06/16/22 13:33 kiwi Allergy ALGY-Hives Verified 06/16/22 13:33 latex Allergy ALGY-Rash Verified 06/16/22 13:33 lavender (Lavandula Allergy ALGY-Rash Verified 06/16/22 13:33 angustifolia) lemon Allergy ALGY-Rash Verified 06/16/22 13:33 lemon oil Allergy ALGY-Rash Verified 06/16/22 13:33 licorice Allergy Unknown Verified 06/16/22 13:33 alturas Allergy Unknown Verified 06/16/22 13:33 molasses Allergy Unknown Verified 06/16/22 13:33 mold Allergy ALGY-Rash Verified 06/16/22 13:33 mussels Allergy Unknown Verified 06/16/22 13:33 nut - unspecified Allergy ALGY-Hives Verified 06/16/22 13:33 oats Allergy ALGY-Hives Verified 06/16/22 13:33 octopus Allergy Unknown Verified 06/16/22 13:33 orange Allergy ALGY-Rash Verified 06/16/22 13:33 oyster extract Allergy Unresponsiv Verified 06/16/22 13:33 e passion fruit Allergy Unknown Verified 06/16/22 13:33 scallops Allergy Unknown Verified 06/16/22 13:33 shellfish derived Allergy ALGY-Swell Verified 06/16/22 13:33 Lip/Tongue/Throat shrimp Allergy Unknown Verified 06/16/22 13:33 squid Allergy Unknown Verified 06/16/22 13:33 wheat Allergy ALGY-Hives Verified 06/16/22 13:33 abolone Allergy Unknown Uncoded 05/27/22 10:17 anchovie Allergy ALGY-Hives Uncoded 05/27/22 10:17 antibacterial soap Allergy Unknown Uncoded 05/27/22 10:17 berries Allergy ALGY-Hives Uncoded 05/27/22 10:17 carob Allergy Unknown Uncoded 05/27/22 10:17 contrast dye Allergy ALGY-Difficulty Uncoded 05/27/22 10:17 Breathing gold Allergy Unknown Uncoded 05/27/22 10:17 hemp oil Allergy ALGY-Rash Uncoded 05/27/22 10:17 kumquat Allergy Unknown Uncoded 05/27/22 10:17 lobster Allergy Unknown Uncoded 05/27/22 10:17 malt Allergy ALGY-Bliste Uncoded 05/27/22 10:17 r mesquite Allergy Unknown Uncoded 05/27/22 10:17 millet Allergy ALGY-Rash Uncoded 05/27/22 10:17 mink oil Allergy ALGY-Rash Uncoded 05/27/22 10:17 mola Allergy Unknown Uncoded 05/27/22 10:17 MSG Allergy Unknown Uncoded 05/27/22 10:17 prawn Allergy Unknown Uncoded 05/27/22 10:17 rye Allergy ALGY-Rash Uncoded 05/27/22 10:17 snail Allergy Unknown Uncoded 05/27/22 10:17 sorghum Allergy Unknown Uncoded 05/27/22 10:17 tangello Allergy Unresponsiv Uncoded 05/27/22 10:17 e tangerine Allergy Unknown Uncoded 05/27/22 10:17 whorstshine sauce Allergy Unknown Uncoded 05/27/22 10:17 PFSH Acute PFSH: Medical History Anticoagulation adequate with anticoagulant therapy Aortic insufficiency with aortic stenosis Atrial fibrillation CAD (coronary artery disease) Chest pain Chronic atrial fibrillation COPD (chronic obstructive pulmonary disease) DVT (deep venous thrombosis) Patient has no evidence of any recurrence of the DVT. May continue on the current medications. Hematuria Hypertension Pulmonary arterial hypertension Sleep apnea Symptomatic bradycardia Transaminitis Surgical History H/O left knee surgery H/O right knee surgery H/O tubal ligation History of colonoscopy with polypectomy 2016 History of esophagogastroduodenoscopy (EGD) Status post laparoscopic cholecystectomy (03/06/21) Family History Other CAD (coronary artery disease) Social History Smoking and tobacco status: never smoked Second hand smoke exposure: No Smoking risk assessment/counseling performed?: No Alcohol intake: never Desire information about alcohol rehabilitation?: No Counseling given: No Desire information about substance/drug rehabilitation?: No Counseling given: No Lives independently: Yes Household members: none Marital status: / Current occupational status: retired History of recent travel: No Current gender identity: Female Vitals/I&O/Wt Last Vital Signs Temp 97.9 F 06/16/22 11:08 Pulse 67 06/16/22 13:55 Resp 19 H 06/16/22 13:55 BP 167/63 06/16/22 13:55 Pulse Ox 94 06/16/22 13:55 O2 Del Method 06/16/22 13:55 Weight last 48 hrs Weight 99.79 kg Physical Exam Narrative: General: Alert oriented x3, patient seen sitting up in bed appearing comfortable at this time. HEENT: Normocephalic, atraumatic, EOMI, breathing normally on room air Cardio: Irregularly irregular, normal S1-S2, systolic murmur present Respiratory: Clear to auscultation bilaterally, no wheezes no rhonchi GI: Abdomen soft, nontender, nondistended, bowel sounds + Extremities: 1+ bilateral lower extremity pitting edema present. Data : 06/17/22 02:47 06/17/22 02:47 A&P Assessment and plan (1) Exertional dyspnea: Status: Acute Plan #Chest pain #Atrial fibrillation #Obstructive sleep apnea #Morbid obesity #Aortic stenosis #Hypertension #COPD #Chronic anticoagulation #Severe pulmonary hypertension Symptomatic valvular disease with shortness of breath Patient is indecisive regarding her valvular surgery however stating that she would like to see a deputy bailiff at [facility] if needed, I did tell her that we will follow-up with echo first and then discharge her, have her follow-up with deputy bailiff outpatient and then she can be given the referral Trend troponin and EKG Continue her diuretics No acute exacerbation of CHF BNP is lower as compared to last time Check TSH, free T4 Full code Cardiac diet DVT prophylaxis patient takes anticoagulating agent for A. fib Attestations Medical Necessity Statement*: Anticipating less than 2 midnights, monitoring for shortness of breath and needed Time Spent in Patient Care: 40 Coding Level of Care Code Acute Brush Finisher for Isabel Ulloa Diagnoses Exertional dyspnea R06.09
--- NOTE | 2022-06-16 17:07 | USCV_ITS ---
Lelia Mcguire Age: 76 Gender: F : 1945 Exam Date: 06/16/2022 19:03 Ordering Phys: Michelle Sen MD Technologist: ANGELICA [place] [facility] [place]: History of aortic stenosis and atrial fibrillation. c/o weakness BP: 167 / 69 HR: 58 Rhythm: Atrial fibrillation Technical Quality: Adequate MEASUREMENTS (Male / Female) Normal Values 2D ECHO LV Diastolic Diameter PLAX 4.7 cm 4.2 - 5.9 / 3.9 - 5.3 cm LV Systolic Diameter PLAX 3.1 cm IVS Diastolic Thickness 1.8 cm 0.6 - 1.0 / 0.6 - 0.9 cm IVS Systolic Thickness 1.8 cm LVPW Diastolic Thickness 1.5 cm 0.6 - 1.0 / 0.6 - 0.9 cm LVPW Systolic Thickness 1.8 cm LVOT Diameter 2.0 cm LV Ejection Fraction 2D Teich 64.2 % LV Ejection Fraction MOD 2C 56.8 % LV Ejection Fraction 2C AL 57.0 % LA Diameter 5.9 cm LA Width 6.2 cm LA Height 8.1 cm RA Width 3.6 cm RA Height 6.9 cm Aorta at Sinotubular Diameter 3.1 cm IVC Diameter 2.0 cm M-MODE Aortic Annulus Diameter 2.6 cm LA Ao Ratio MM 2.4 MV E Point Septal Separation 0.3 cm DOPPLER AV Peak Velocity 267.0 cm/s LVOT Peak Velocity 128.0 cm/s AV Area Cont Eq vti 1.3 cm squared AV Area Cont Eq pk 1.4 cm squared MV Area PHT 5.0 cm squared MV E' Velocity 72.0 cm/s Mitral E to MV E' Ratio 13.4 Mitral E to LV E' Lateral Ratio 9.3 Mitral E to LV E' Septal Ratio 24.1 TR Peak Velocity 292.0 cm/s TR Peak Gradient 34.1 mmHg TV Peak E Velocity 60.0 cm/s Right Atrial Pressure 10.0 mmHg Pulmonary Artery Systolic Pressu 44.1 mmHg PV Peak Velocity 161.0 cm/s RV Acceleration Time 0.1 s RV Ejection Time 0.4 s RV AcT/ET 0.2 FINDINGS Left Ventricle Normal left ventricular size, systolic function and mildly increased wall thickness, with no regional wall motion abnormalities. Left ventricular ejection fraction is estimated at 65 %. Abnormal diastolic function. Right Ventricle Normal right ventricular size and systolic function. Right ventricular systolic pressure 44 mmHg. Right Atrium Normal right atrial size. Left Atrium Moderately increased left atrial size. Mitral Valve Mildly thickened mitral valve. No mitral valve stenosis. Mild mitral valve regurgitation. Aortic Valve Aortic valve not well visualized. Mild aortic valve stenosis, peak velocity 2.8 m/s, peak gradient 31 mmHg, mean gradient 15 mmHg, PATRICK 1.3 cm squared. Mild to moderate aortic valve regurgitation. Tricuspid Valve Structurally normal tricuspid valve. Mild tricuspid valve regurgitation. Pulmonic Valve Pulmonic valve not well visualized. [id number] pulmonary valve regurgitation. Pericardium Trivial pericardial effusion. Aorta Normal size aortic root and proximal ascending aorta. IVC Normal IVC dimension with <50% respiratory change of the inferior vena cava. CONCLUSIONS 1. Normal left ventricular size, systolic function and mildly increased wall thickness, with no regional wall motion abnormalities. Left ventricular ejection fraction is estimated at 65 %. Abnormal diastolic function. 2. Normal right ventricular size and systolic function. 3. Mild aortic valve stenosis, peak velocity 2.8 m/s, peak gradient 31 mmHg, mean gradient 15 mmHg, PATRICK 1.3 cm squared. Mild to moderate aortic valve regurgitation. 4. Mild pulmonary hypertension with pulmonary artery pressure estimated at 44 mmHg. 5. Mild to moderate pulmonary valve regurgitation. 6. When compared to study dated 09/05/2021, there may not have been any significant change. Dorcas Cortes MD (Electronically Signed) Final Date: 17 June 2022 14:04 S
[2022-06-16] MEDS: rivaroxaban 10 mg Tablet 20 MG PO (17:33)
--- NOTE | 2022-06-16 17:47 | PC.NURSE ---
Patient arrived to unit and immediately went to the restroom. Patient was able to ambulate independently to the bed. Patient was standing in doorway angry stating no one had been in to see her when nurse and aide had been in the room when she got up to the restroom. Patient reports she should have just stayed home to because she does not feel like she gets adequate care here. Patient reports she should have never came in. Patient was angry prior to admission assessment, then conversing with nurse laughing and telling stories. Patient oriented to room, call light, no skid, grippy socks applied per patient request. Patient advised to use call light for any needs.
[2022-06-17] VITALS (7 sets, daily range): BP systolic 120–144; BP diastolic 50–69; PULSE 44–59; RESP 14–18; TEMP 36.4–36.8; O2SAT 93–98
[2022-06-17 03:01] LABS: Basophils # 0.1 10^3/uL (0.0-0.1); Basophils % 0.9 %; Eosinophils # 0.2 10^3/uL (0.0-0.8); Eosinophils % 2.8 %; Hematocrit 44.6 % (37.0-47.0); Hemoglobin 14.2 g/dL (11.5-15.3); Lymphocytes # 1.9 10^3/uL (0.8-4.8); Lymphocytes % 29.6 %; Mean Corpuscular HGB Conc 31.8 g/dL (30.0-36.0); Mean Corpuscular Hemoglobin 29.6 pg (28.0-34.0); Mean Corpuscular Volume 93.1 fl (81-99); Mean Platelet Volume 10.5 fL (7.4-10.4); Monocytes # 0.7 10^3/uL (0.2-0.9); Neutrophils # 3.63 10^3/uL (1.8-7.7); Neutrophils % 55.6 %; Nucleated Red Blood Cells % 0 %; Platelet Count 141 10^3/cmm (130-400); Red Blood Count 4.79 10^6/uL (4.1-5.3); White Blood Count 6.5 10^3/uL (4.0-10.0)
[2022-06-17 03:15] LABS: Anion Gap 17.7 (5-19); Blood Urea Nitrogen 15 mg/dL (8-23); Calcium 9.1 mg/dL (8.5-10.5); Carbon Dioxide 22 mmol/L (22-29); Chloride 102 mmol/L (98-107); Creatinine Clr Calc Pharmacy 70.6387; Glucose 107 mg/dL (65-115); Osmolality Calculated 287 mOsm/kg (285-295); Potassium 3.7 mmol/L (3.5-5.1); Sodium 138 mmol/L (136-145)
[2022-06-17] MEDS: potassium chloride ER 10 mEq Tablet 20 MEQ PO (09:39)
[2022-06-17] MEDS: FUROsemide 20 mg Tablet 40 MG PO (09:39)
--- NOTE | 2022-06-17 13:37 | P.PN_ITS ---
Subjective Subjective: Patient was walking around when entered the room No overnight events No active chest pain or shortness of breath Currently on room air Vitals/I&O/Wt Last Vital Signs Temp 98.0 F 06/17/22 11:52 Pulse 54 L 06/17/22 11:52 Resp 17 06/17/22 11:52 BP 132/55 06/17/22 11:52 Pulse Ox 94 06/17/22 11:52 O2 Del Method 06/17/22 11:52 06/16/22 06/17/22 06/17/22 22:59 06:59 14:59 Intake Total 50 / 50 0 / 0 Balance 50 / 50 0 / 0 Weight last 48 hrs Weight 102.058 kg Weight 99.79 kg Physical Exam Narrative: Patient seems to be compensated for CHF Awake and alert Pleasant cooperative Abdomen soft however distended Distribution Lower extremity pitting edema t Nonfocal neuro exam No audible stridor or wheezing Data : 06/17/22 02:47 06/17/22 02:47 A&P Assessment and plan (1) Exertional dyspnea: Status: Acute Plan Symptomatic valvular disease Exertional shortness of breath She has multiple causes for exertional shortness of breath such as primary hypertension aortic stenosis, AI Patient is stating that she is agreeable for outpatient Dr. Perrin's follow-up and then see a inspector cold working in [place] if needed for her valvular surgery She does understand that she was considered high risk for any intervention I am still waiting on echo report Plan to discharge her tomorrow Outpatient follow-up Full code Continue rivaroxaban Cardiac diet Attestations Medical Necessity Statement*: Had a lengthy discussion with the patient she is agreeable with above-mentioned plan Time Spent in Patient Care: 30 Coding Level of Care Code Acute Deputy Sheriff Custody for Isabel Ulloa Diagnoses Exertional dyspnea R06.09
[2022-06-17] MEDS: rivaroxaban 10 mg Tablet 20 MG PO (17:48)
--- NOTE | 2022-06-17 17:51 | PC.NURSE ---
Patient continues to complain about her tray, stating they clearly don't know how to deal with people with food allergies. Patient reports she is not allergic to anything on her tray she just couldnt get a real piece of chicken and only received a poached egg white with her breakfast. Patient continues to state she should have just stayed home and and will stay home and next time because they can't get it together and fix my heart . Patient denies anything this nurse can do for her at this time. Patient continues to eat side salad and denies current needs.
--- NOTE | 2022-06-17 19:25 | PC.NURSE ---
i reported low pulse 59 to nurse
[2022-06-18] VITALS: BP 138/62; PULSE 49; RESP 17; TEMP 36.7; O2SAT 98
[2022-06-18 04:00] VITALS: BP 147/75; PULSE 46; RESP 18; TEMP 36.5; O2SAT 95
--- NOTE | 2022-06-18 04:09 | PC.NURSE ---
i reported low pulse 46 to nurse
[2022-06-18 05:57] LABS: Anion Gap 12.8 (5-19); Blood Urea Nitrogen 13 mg/dL (8-23); Calcium 8.6 mg/dL (8.5-10.5); Carbon Dioxide 28 mmol/L (22-29); Chloride 102 mmol/L (98-107); Creatinine Clr Calc Pharmacy 70.6387; Glucose 103 mg/dL (65-115); Osmolality Calculated 288 mOsm/kg (285-295); Potassium 3.8 mmol/L (3.5-5.1); Sodium 139 mmol/L (136-145)
[2022-06-18 06:32] VITALS: PULSE 49
--- NOTE | 2022-06-18 06:58 | PM.DCS ---
Discharge Providers Date of Admission: 06/16/22 15:03 Date of Discharge: June 18, 2022 Attending Provider at Admission: Michelle Sen MD Attending Provider at Discharge: Michelle Sen MD Primary Care Provider: Ric Esquivel DO Diagnoses at Discharge Discharge Diagnosis (1) Exertional dyspnea: Status: Acute Reason for Visit Reason for Visit: WEAKNESS Hospital Course Hospital Course 76-year-old female who has history of aortic stenosis, aortic regurgitation, atrial fibrillation, follows up with Dr. Perrin, resident of [facility], presented with worsening shortness of breath. She was admitted for evaluation of her underlying valvular pathology. Echo was requested but did not show any acute worsening of her valvular underlying pathology. I have requested patient to follow-up with Dr. Perrin outpatient. I have not changed any of her medications. Please note she has chronic bradycardia which is currently being monitored by her criminal intelligence analyst. She is very upset about her heart condition and thinks she needs to go to [facility]. I asked her to discuss that with her criminal intelligence analyst. Her CT abdomen pelvis was unremarkable. Her diastolic congestive heart failure was compensated. No acute worsening. Physical Exam Narrative: Patient sitting in a chair, and pleasant Awake and alert Pleasant cooperative Abdomen soft Distribution Lower extremity pitting edema t Nonfocal neuro exam No audible stridor or wheezing Discharge Data Studies Completed and Pending Completed Studies During Hospitalization Category Date Time Status CT abdomen pelvis wo con [id number] Urgent Cat Scan 06/16/22 12:26 Completed XR chest 1V portable [id number] Urgent Exams 06/16/22 11:13 Completed CV. echo complete* [id number] Urgent Ultrasound 06/16/22 17:07 Completed Radiology Impressions Chest X-Ray 06/16/22 11:13 IMPRESSION: 1. Moderately enlarged heart with ectatic thoracic aorta. 2. No pneumonia. Abdomen/Pelvis CT 06/16/22 12:26 IMPRESSION: 1. No hydronephrosis in either kidney. No obstructing renal or ureteral calculi. 2. Small esophageal hiatal hernia. 3. Prior cholecystectomy. 4. Calcified uterine fundal fibroids the largest measuring 4.8 x 4.4 cm. 5. Fat-containing umbilical hernia appears progressed compared to previous. No herniated bowel. 6. Sigmoid diverticulosis. No evidence of acute diverticulitis. Laboratory Results WBC 6.5 10^3/uL (4.0-10.0) 06/17/22 02:47 RBC 4.79 10^6/uL (4.1-5.3) 06/17/22 02:47 Hgb 14.2 g/dL (11.5-15.3) 06/17/22 02:47 Hct 44.6 % (37.0-47.0) 06/17/22 02:47 MCV 93.1 fl (81-99) 06/17/22 02:47 MCH 29.6 pg (28.0-34.0) 06/17/22 02:47 MCHC 31.8 g/dL (30.0-36.0) 06/17/22 02:47 RDW 14.0 % (12.1-15.1) 06/17/22 02:47 Plt Count 141 10^3/cmm (130-400) 06/17/22 02:47 MPV 10.5 fL (7.4-10.4) H 06/17/22 02:47 Neut % (Auto) 55.6 % 06/17/22 02:47 Lymph % (Auto) 29.6 % 06/17/22 02:47 Dubois % (Auto) 10.0 % 06/17/22 02:47 Eos % (Auto) 2.8 % 06/17/22 02:47 Baso % (Auto) 0.9 % 06/17/22 02:47 Neut # (Auto) 3.63 10^3/uL (1.8-7.7) 06/17/22 02:47 Lymph # (Auto) 1.9 10^3/uL (0.8-4.8) 06/17/22 02:47 Dubois # (Auto) 0.7 10^3/uL (0.2-0.9) 06/17/22 02:47 Eos # (Auto) 0.2 10^3/uL (0.0-0.8) 06/17/22 02:47 Baso # (Auto) 0.1 10^3/uL (0.0-0.1) 06/17/22 02:47 Nucleated RBC % (auto) 0 % 06/17/22 02:47 Nucleated RBCs # 0.0 /100WBC 06/17/22 02:47 Sodium 139 mmol/L (136-145) 06/18/22 05:10 Potassium 3.8 mmol/L (3.5-5.1) 06/18/22 05:10 Chloride 102 mmol/L (98-107) 06/18/22 05:10 Carbon Dioxide 28 mmol/L (22-29) 06/18/22 05:10 Anion Gap 12.8 (5-19) 06/18/22 05:10 BUN 13 mg/dL (8-23) 06/18/22 05:10 Creatinine 0.8 mg/dL (0.5-0.9) 06/18/22 05:10 GFR Calculation Not Reportable 06/18/22 05:10 Glucose 103 mg/dL (65-115) 06/18/22 05:10 Calculated Osmolality 288 mOsm/kg (285-295) 06/18/22 05:10 Calcium 8.6 mg/dL (8.5-10.5) 06/18/22 05:10 Magnesium 2.0 mg/dL (1.7-2.3) 06/17/22 02:47 Total Bilirubin 0.7 mg/dL (0.15-1.2) 06/16/22 11:30 AST 22 U/L (0-32) 06/16/22 11:30 ALT 17 U/L (0-33) 06/16/22 11:30 Alkaline Phosphatase 60 IU/L (35-105) 06/16/22 11:30 Troponin T Baseline 19 ng/L (0-10) H 06/16/22 11:30 Troponin T 120 Minute 18.22 ng/L (0-10) H 06/16/22 13:11 Delta Troponin T -0.78 ABS# (0-10) L 06/16/22 13:11 C-Reactive Protein 3.0 mg/L (0.0-4.9) 06/17/22 02:47 NT-Pro-B Natriuret Pep 670 pg/mL (0-450) H 06/16/22 11:30 Total Protein 6.5 g/dL (6.6-8.7) L 06/16/22 11:30 Albumin 3.8 g/dL (3.5-5.2) 06/16/22 11:30 Globulin 2.7 g/dL (1.3-4.6) 06/16/22 11:30 Lipase 19 U/L (13-60) 06/16/22 11:30 Urine Color Yellow (Yellow) 06/16/22 11:50 Urine Appearance Clear (CLEAR) 06/16/22 11:50 Urine pH 6 (5-7) 06/16/22 11:50 Ur Specific [place] 1.020 (1.005-1.030) 06/16/22 11:50 Urine Protein Neg (Negative) 06/16/22 11:50 Urine Glucose (UA) Norm (Normal) 06/16/22 11:50 Urine Ketones Negative (Negative) 06/16/22 11:50 Urine Blood 2+ (Negative) H 06/16/22 11:50 Urine Nitrate Negative (Negative) 06/16/22 11:50 Urine Bilirubin Neg (Negative) 06/16/22 11:50 Urine Urobilinogen Norm mg/dL (Negative) 06/16/22 11:50 Ur Leukocyte Esterase 2+ (Negative) H 06/16/22 11:50 Urine RBC 0-4 /hpf (0-2) H 06/16/22 11:50 Urine WBC 10-15 /hpf (0-5) H 06/16/22 11:50 Ur Squamous Epith Cells 10-15 /hpf (0-5) H 06/16/22 11:50 Amorphous Sediment Not Reportable 06/16/22 11:50 Urine Bacteria 2+ /hpf (NONE) H 06/16/22 11:50 Influenza Type A Ag Negative (Negative) 06/16/22 11:34 Influenza Type B Ag Negative (Negative) 06/16/22 11:34 SARS-CoV-2 Ag (Rapid) Negative (Negative) 06/16/22 11:34 Vitals Last Vital Signs Temp 97.7 F 06/18/22 04:00 Pulse 49 L 06/18/22 06:32 Resp 18 06/18/22 04:00 BP 147/75 06/18/22 04:00 Pulse Ox 95 06/18/22 04:00 O2 Del Method 06/17/22 20:48 Discharge Plan Discharge Patient Disposition: Home Condition: Stable Prescriptions: Continued nitroglycerin 0.4 mg tablet, sublingual 0.4 mg sublingual Q5M PRN (Reason: chest pain) Qty: 25 2RF Rx Instructions: do not exceed 3 doses per episode furosemide 20 mg tablet 40 mg PO DAILY PRN (Reason: Edema) Xarelto 20 mg tablet 20 mg PO QPM Hold Instructions: Resume on 03/08/21. potassium chloride 10 mEq tablet extended release 20 meq PO DAILY PRN (Reason: while taking lasix) cyanocobalamin (vitamin B-12) [Vitamin B-12] 1,000 mcg Tablet 1,000 mcg PO QPM lisinopril 2.5 mg tablet 2.5 mg PO QAM Prolia 60 mg/mL syringe See Rx Instructions .ROUTE .COMPLEX Rx Instructions: EVERY 6 MONTHS calcium carbonate 500 mg calcium (1,250 mg) Tablet 500 mg PO QPM cholecalciferol (vitamin D3) [Vitamin D3] 50 mcg (2,000 unit) Tablet 50 mcg PO QPM Discharge Orders: Discharge Order (Routine); Ordered 06/18/22 Ordered By: Michelle Sen Other Ambulatory Orders: MCT/Event Monitor 14 Days (Routine) Timeframe: 14 Day Facility: [facility] - Location: Radiology Ordered By: Michelle Sen Referrals: Ric Esquivel DO [Primary Care Provider] - 06/23/22 11:[address] Huston FNP [Nurse Practitioner] - 06/23/22 12:45 pm (event monitor at 1:45 06/23/22) Discharge Diet: Cardiac Patient Instructions: Bradycardia (GEN), Opioid Safety Discharge Attestations Time Spent in Discharge Care*: less than 30 min Status at Discharge: Cognitive status at discharge: cognitively intact, Behavioral status at discharge: cooperative, Quality Metrics Clinical Quality Measures [ No reported AMI, CVA or VTE this stay] Coding Level of Care Code Acute Chg FW DC note Diagnoses Exertional dyspnea R06.09
[2022-06-18 07:22] VITALS: BP 144/71; PULSE 48; RESP 16; TEMP 36.4; O2SAT 95
[2022-06-18] MEDS: FUROsemide 20 mg Tablet 40 MG PO (08:30)
[2022-06-18] MEDS: potassium chloride ER 10 mEq Tablet 20 MEQ PO (08:30)
[2022-06-18 09:10] VITALS: PULSE 57; RESP 18; O2SAT 96
[2022-06-18 12:04] VITALS: PULSE 57; RESP 18; O2SAT 96
== END 2022-06-18 12:05 | disposition home or self-care (01) ==
LOC: ER 15:04 → MEDSURG 15:39
PROVIDERS: Admitting Provider Internal Medicine; Emergency Provider Emergency Medicine; PCP Family Medicine; Visit Provider Internal Medicine
DX: R06.09 Other forms of dyspnea (principal); I35.0 Nonrheumatic aortic (valve) stenosis; I35.1 Nonrheumatic aortic (valve) insufficiency; I48.91 Unspecified atrial fibrillation; Z86.718 Personal history of other venous thrombosis and embolism; E66.01 Morbid (severe) obesity due to excess calories; Z68.38 Body mass index [BMI] 38.0-38.9, adult; J44.9 Chronic obstructive pulmonary disease, unspecified; Z79.01 Long term (current) use of anticoagulants; I27.20 Pulmonary hypertension, unspecified; I25.10 Atherosclerotic heart disease of native coronary artery without angina pectoris; Z82.49 Family history of ischemic heart disease and other diseases of the circulatory system; G47.33 Obstructive sleep apnea (adult) (pediatric); K44.9 Diaphragmatic hernia without obstruction or gangrene
CPT/HCPCS: 36415; 71045; 74176; 80048; 80053; 81001; 83690; 83735; 83880; 84484; 85025; 86140; 87426; 87804; 93005; 93306; 94760; 96365; 99285; G0378; J0696

== ENCOUNTER → 2022-06-23 12:26 | Outpatient (BNVA) | payer MEDICARE, OTHER, MEDICAID, SELFPAY | PROVIDERS: PCP Family Medicine; Visit Provider Nurse Practitioner Family | DX: R06.02 Shortness of breath (principal) | CPT/HCPCS: 99213 ==

== ENCOUNTER → 2022-07-10 15:16 | Outpatient (BNVA) | payer MEDICARE, OTHER, MEDICAID, SELFPAY | PROVIDERS: PCP Family Medicine; Visit Provider Internal Medicine | DX: I35.2 Nonrheumatic aortic (valve) stenosis with insufficiency (principal); Z79.01 Long term (current) use of anticoagulants; E66.9 Obesity, unspecified; Z68.37 Body mass index [BMI] 37.0-37.9, adult; I27.21 Secondary pulmonary arterial hypertension; I82.519 Chronic embolism and thrombosis of unspecified femoral vein; G47.33 Obstructive sleep apnea (adult) (pediatric); I48.11 Longstanding persistent atrial fibrillation | CPT/HCPCS: 99214 ==

== ENCOUNTER 2022-08-22 12:04 | Emergency (ER) | payer MEDICARE, OTHER, MEDICAID, SELFPAY ==
[2022-08-22 12:05] VITALS: BP 155/61; PULSE 64; RESP 12; TEMP 36.8; O2SAT 94; BMI 37.8
--- NOTE | 2022-08-22 12:11 | CT_ITS ---
WS: [id number] CT HEAD TECHNIQUE: Noncontrast CT of the head obtained from the skullbase to the vertex. CLINICAL INFORMATION: closed head injury on anticoagulants COMPARISON: None. DLP: 986.[address] scans at [facility] use at least one of these dose optimization techniques: automated e xposure control; mA and/or kV adjustment per patient size (includes targeted exams where dose is matc hed to clinical indication); or iterative reconstruction. FINDINGS:Soft tissue scalp hematoma overlying the RIGHT frontal calvarium. Tiny amount of possible po sttraumatic hemorrhage overlying the parasagittal inferior RIGHT frontal lobe anteriorly. In addition , adjacent increased attenuation along the inferior midline falx. Findings suspicious for tiny amount of posttraumatic hemorrhage considering anticoagulation. Some this may represent artifact and recomm end short interval follow-up to assess change. No extra-axial fluid collections. No mass effect. Ventricular system and basal cisterns are patent. M oderate small vessel changes with moderate parenchymal volume loss. No visualized fractures. Intracranial vascular calcification. Paranasal sinuses and mastoid air cells well aerated. CT/CT head wo con* [id number] IMPRESSION: 1. Tiny amount of increased attenuation along the RIGHT parasagittal inferior frontal lobe suspicious for a tiny amount of posttraumatic hemorrhage. In addit ion, small sliver of increased attenuation along the falx inferior frontal lobe s anteriorly. Recommend short interval follow-up CT head to assess change. 2. No evidence of mass or mass effect. 3. Moderate small vessel changes with moderate parenchymal volume loss. 4. No calvarial fractures. 5. Paranasal sinuses and mastoid air cells are well aerated. 6. Soft tissue scalp hematoma overlying the RIGHT frontal calvarium. No visual ized fractures. Notified Ranjeet Carvalho DO at 08/22/2022 1:04 PM.
--- NOTE | 2022-08-22 12:55 | ED_ITS ---
HPI - Fall General: Chief Complaint: Fall Stated Complaint: FALL/ HEMATOMA TO HOAHAOISM Time Seen by Provider: 08/22/22 12:10 Source: patient Mode of arrival: EMS History of Present Illness: 76-year-old female presents emergency room via EMS. She has a history of atrial fibrillation and she is on Xarelto. She stumbled fell face first on the concrete has a hematoma on her faith there is no loss of consciousness. complaint: fall Onset (ago): minute(s) Fall from: standing Fall witnessed: yes, by bystander Place fall occurred: street Loss of consciousness: None Prolonged down time: no Symptoms prior to fall: none Context: tripped/slipped Location of injury: face Severity: mild Associated symptoms-after fall: Reports difficulty walking; Denies abdominal pain, chest pain, confusion, headache(s), hematuria, lightheadedness, neck pain, numbness, short of breath, vertigo or weakness Review of Systems Const: Denies: fever(s), chills, body aches, change in appetite, fatigue or malaise ENMT: Denies: throat pain, ear or mastoid pain, nasal discharge or nasal congestion Card: Denies: chest pain or lightheadedness Resp: Denies: dyspnea, productive cough or non-productive cough GI: Denies: abdominal pain : Denies: hematuria Musc: Denies: neck pain Skin/Breast: Denies: rash or pruritus Neuro: Reports: difficulty walking; Denies: headache(s), vertigo or confusion PFSH ED PFSH: Medical History Acute UTI Anticoagulation adequate with anticoagulant therapy Aortic insufficiency with aortic stenosis Atrial fibrillation CAD (coronary artery disease) Chest pain Chronic atrial fibrillation COPD (chronic obstructive pulmonary disease) DVT (deep venous thrombosis) Patient has no evidence of any recurrence of the DVT. May continue on the current medications. Exertional dyspnea Hematuria Hypertension Light headedness Pulmonary arterial hypertension Sleep apnea Symptomatic bradycardia Transaminitis Surgical History H/O left knee surgery H/O right knee surgery H/O tubal ligation History of colonoscopy with polypectomy 2016 History of esophagogastroduodenoscopy (EGD) Status post laparoscopic cholecystectomy (04/21/21) Family History Other CAD (coronary artery disease) Social History Smoking and tobacco status: never smoked Second hand smoke exposure: No Smoking risk assessment/counseling performed?: No Alcohol intake: never Desire information about alcohol rehabilitation?: No Counseling given: No Desire information about substance/drug rehabilitation?: No Counseling given: No Lives independently: Yes Household members: none Marital status: / Current occupational status: retired History of recent travel: No Current gender identity: Female Female Reproductive History: Spontaneous abortions: No Physical Exam Const: COMMON NORMALS: no acute distress GENERAL APPEARANCE: cooperative and comfortable ORIENTATION/CONSCIOUSNESS: Yes awake, Yes oriented to person, Yes oriented to place and Yes oriented to time HENMT: COMMON NORMALS: normocephalic, hearing grossly normal bilaterally, external ears normal, EAC's normal, TM's normal bilaterally, Normal nasal mucous membranes and turbinates present, moist oral mucous membranes and oropharynx normal HEAD & SCALP: normocephalic NOSE: Normal nasal mucous membranes and turbinates present EXTERNAL EAR: Yes external ears normal EXTERNAL AUDITORY CANAL: EAC's normal TYMPANIC MEMBRANE: TM's normal bilaterally Eye: COMMON NORMALS: Equal, round and reactive pupils present, EOMs intact bilaterally, conjunctivae normal and no scleral icterus CONJUNCTIVA: Yes conjunctivae normal PUPIL: Yes Equal, round and reactive pupils present Neck/C-Spine: COMMON NORMALS: full ROM, no lymphadenopathy, supple and no JVD Lymph: LYMPHATIC: no lymphadenopathy noted and no lymphedema noted Resp: COMMON NORMALS: normal respiratory effort, No retractions, No use of accessory muscles and clear to auscultation bilaterally AUSCULTATION: clear to auscultation bilaterally Cardio: COMMON NORMALS: no JVD, regular rate, regular rhythm and No murmurs present (Cardio) RATE: regular rate RHYTHM: regular rhythm GI: COMMON NORMALS: Soft to palpation and No hepatosplenomegaly present A USCULTATION: Yes normoactive bowel sounds PALPATION: Yes Soft to palpation, No Tenderness to palpation present (GI), No Guarding due to palpation present (GI) and Yes No hepatosplenomegaly present Extremity: NARRATIVE EXTREMITY EXAM: Proximal tibia Hematoma. Knee joint itself is intact x-rays unremarkable. No crepitus. No lacerations some abrasion. Neuro: SENSORIUM/ORIENTATION: Yes oriented to person, Yes oriented to place and Yes oriented to time Skin: OTHER: facial And extremity abrasions no lacerations. Course Vital Signs: Vital signs: Vital Signs Temperature 98.2 F 08/22/22 12:05 Pulse Rate 55 L 08/22/22 15:01 Respiratory Rate 18 08/22/22 15:01 Blood Pressure 183/81 08/22/22 15:01 Pulse Oximetry 94 08/22/22 15:01 Oxygen Delivery Me thod 08/22/22 15:01 MDM - Fall Medical Decision Making CT head and neck unremarkable. There is a hematoma in the left knee no acute fracture. Patient is anxious to go home apply ice elevate continue current medications follow-up with primary care. Advised patient she will likely be much more sore tomorrow than today. Medical Records I reviewed the patient's medical records. Lab Data I reviewed the patient's lab results. Radiology Impressions Knee X-Ray 08/22/22 13:04 IMPRESSION: There is right knee osteoarthritis. Head CT 08/22/22 15:09 IMPRESSION: No significant change when compared with 08/22/2022 at 12:30 p.m.. Discharge Plan Discharge Patient Disposition: Home Clinical Impression: Fall, Closed head injury, Traumatic hematoma of knee Condition: Stable Prescriptions: New tramadol 50 mg tablet 50 mg PO Q8H PRN (Reason: pain) Qty: 20 0RF No Action nitroglycerin 0.4 mg tablet, sublingual 0.4 mg sublingual Q5M PRN (Reason: chest pain) Qty: 25 2RF Rx Instructions: do not exceed 3 doses per episode furosemide 20 mg tablet 40 mg PO DAILY PRN (Reason: Edema) isosorbide mononitrate 30 mg tablet extended release 24 hr 30 mg PO DAILY Qty: 90 3RF cetirizine 10 mg tablet 10 mg PO BID PRN amoxicillin-pot clavulanate 875-125 mg tablet 1 tab PO BID Qty: 14 0RF lisinopril 2.5 mg tablet 2.5 mg PO QAM Qty: 90 3RF Xarelto 20 mg tablet 20 mg PO QPM Qty: 90 0RF Hold Instructions: Resume on 03/08/21. potassium chloride 10 mEq tablet extended release 20 meq PO DAILY PRN (Reason: while taking lasix) cyanocobalamin (vitamin B-12) [Vitamin B-12] 1,000 mcg Tablet 1,000 mcg PO QPM calcium carbonate 500 mg calcium (1,250 mg) Tablet 500 mg PO QPM cholecalciferol (vitamin D3) [Vitamin D3] 50 mcg (2,000 unit) Tablet 50 mcg PO QPM Discharge Orders: Discharge ED (Routine); Ordered 08/22/22 Ordered By: Ranjeet Carvalho Referrals: Ric Esquivel DO [Primary Care Provider] - Patient Instructions: Opioid Safety, Pain Management Coding Level of Care Code ED [employer] Weight [employer] Strength Tester for Isabel Ulloa
[2022-08-22 13:00] VITALS: BP 163/57; PULSE 62; RESP 20; O2SAT 95
--- NOTE | 2022-08-22 13:04 | XRR_ITS ---
PROCEDURE INFORMATION: Exam: XR Right Knee Exam date and time: 08/22/2022 1:28 PM Age: 76 years old Clinical indication: Pain; Knee; Right TECHNIQUE: Imaging protocol: Radiologic exam of the Right knee. Views: 3 views. COMPARISON: US ROR venous duplex LE RT 12/15/2016 9:52 AM FINDINGS: Bones/joints: There is joint space narrowing and osteophyte formation in the medial compartment and patellofemoral joint. There is osteopenia.There is no evidence for acute fracture or malalignment. Soft tissues: Normal. XR/XR knee RT 3V* [id number] IMPRESSION: There is right knee osteoarthritis.
[2022-08-22 13:30] VITALS: BP 157/72; PULSE 76; RESP 20; O2SAT 94
[2022-08-22 14:00] VITALS: BP 147/52; PULSE 54; RESP 22; O2SAT 97
[2022-08-22 14:30] VITALS: BP 147/52; PULSE 61; RESP 20; O2SAT 97
[2022-08-22 15:01] VITALS: BP 183/81; PULSE 55; RESP 18; O2SAT 94
[2022-08-22] MEDS: acetaminophen 325 mg Tablet 650 MG PO (15:09)
--- NOTE | 2022-08-22 15:09 | CTR_ITS ---
PROCEDURE INFORMATION: Exam: CT Head Without Contrast Exam date and time: 08/22/2022 3:14 PM Age: 76 years old Clinical indication: Injury or trauma; Fall; Bleeding/hemorrhage TECHNIQUE: Imaging protocol: Computed tomography of the head without contrast. Radiation optimization: All CT scans at this facility use at least one of these dose optimization techniques: automated exposure control; mA and/or kV adjustment per patient size (includes targeted exams where dose is matched to clinical indication); or iterative reconstruction. COMPARISON: CT head wo con* [id number] 08/22/2022 12:28 PM RADIATION DOSE METRICS: Total DLP (mGy-cm): 949.8 FINDINGS: Brain: Moderate white matter disease and volume loss are identified. There is no acute infarct or edema. Subtle hyperdensity is again identified in the medial right frontal lobe on series 6, image 21 which may represent a small amount of subarachnoid hemorrhage. This is unchanged. Cerebral ventricles: No ventriculomegaly. Paranasal sinuses: Visualized sinuses are unremarkable. No fluid levels. Mastoid air cells: Visualized mastoid air cells are well aerated. Bones/joints: Unremarkable. No acute fracture. Soft tissues: There is superficial soft tissue swelling along the right frontal calvarium. CT/CT head wo con* [id number] IMPRESSION: No significant change when compared with 08/22/2022 at 12:30 p.m..
== END 2022-08-22 16:10 | disposition home or self-care (01) ==
PROVIDERS: Emergency Provider Family Medicine; PCP Family Medicine
DX: S80.02XA Contusion of left knee, initial encounter (principal); S09.90XA Unspecified injury of head, initial encounter; W01.0XXA Fall on same level from slipping, tripping and stumbling without subsequent striking against object, initial encounter
CPT/HCPCS: 70450; 73562; 99285

== ENCOUNTER → 2022-09-01 14:36 | Outpatient (BNVA) | payer MEDICARE, OTHER, MEDICAID, SELFPAY | PROVIDERS: PCP Family Medicine; Visit Provider Internal Medicine | DX: I35.2 Nonrheumatic aortic (valve) stenosis with insufficiency (principal); Z79.01 Long term (current) use of anticoagulants; E66.9 Obesity, unspecified; I27.21 Secondary pulmonary arterial hypertension; I82.519 Chronic embolism and thrombosis of unspecified femoral vein; G47.33 Obstructive sleep apnea (adult) (pediatric); I48.11 Longstanding persistent atrial fibrillation | CPT/HCPCS: 99214 ==

== ENCOUNTER 2022-09-08 15:47 | Outpatient (CLI) | payer MEDICARE, OTHER, MEDICAID, SELFPAY ==
--- NOTE | 2022-09-08 16:00 | USCV_ITS ---
Lelia Mcguire Age: 77 Gender: F : 1945 Exam Date: 09/08/2022 15:52 Ordering Phys: Ric Esquivel DO Technologist: CT [place] [facility] [place] Indication: swelling-rt PROCEDURES: Venous duplex imaging was performed in only the right lower extremity. The following venous structures were evaluated: common femoral vein, profunda vein, proximal portion of the greater saphenous vein, superficial femoral vein, and the popliteal vein. FINDINGS: Normal 2-D Doppler and augmentation and compressibility throughout the lower extremity venous structures. Additional imaging through the proximal calf veins also reveals no thrombus. Limited evaluation of the greater saphenous vein is patent with no thrombus. CONCLUSIONS No DVT right lower extremity. Dr. China Su DO (Electronically Signed) Final Date: 08 September 2022 16:19 Amended: 11 September 2022 08:32 C
== END 2022-09-08 15:48 | disposition home or self-care (01) ==
LOC: RAD 15:47
PROVIDERS: PCP Family Medicine; Visit Provider Family Medicine
DX: M79.89 Other specified soft tissue disorders (principal); L03.115 Cellulitis of right lower limb
CPT/HCPCS: 93971

== ENCOUNTER → 2022-09-26 09:19 | Outpatient (BNVA) | payer MEDICARE, OTHER, MEDICAID, SELFPAY | PROVIDERS: PCP Family Medicine; Visit Provider Nurse Practitioner Family | DX: I96 Gangrene, not elsewhere classified (principal); S80.811A Abrasion, right lower leg, initial encounter; X58.XXXA Exposure to other specified factors, initial encounter; L08.9 Local infection of the skin and subcutaneous tissue, unspecified | CPT/HCPCS: 11042; 11045; 99213 ==

== ENCOUNTER → 2022-10-02 14:29 | Outpatient (BNVA) | payer MEDICARE, OTHER, MEDICAID, SELFPAY | PROVIDERS: PCP Family Medicine; Visit Provider Nurse Practitioner Family | DX: I96 Gangrene, not elsewhere classified (principal); S80.811A Abrasion, right lower leg, initial encounter; X58.XXXA Exposure to other specified factors, initial encounter; L08.9 Local infection of the skin and subcutaneous tissue, unspecified | CPT/HCPCS: 99212 ==

== ENCOUNTER → 2023-01-13 12:58 | Outpatient (BNVA) | payer MEDICARE, OTHER, MEDICAID, SELFPAY | PROVIDERS: PCP Family Medicine; Visit Provider Internal Medicine | DX: I35.2 Nonrheumatic aortic (valve) stenosis with insufficiency (principal); Z79.01 Long term (current) use of anticoagulants; E66.9 Obesity, unspecified; I27.21 Secondary pulmonary arterial hypertension; I82.519 Chronic embolism and thrombosis of unspecified femoral vein; G47.33 Obstructive sleep apnea (adult) (pediatric); I48.11 Longstanding persistent atrial fibrillation | CPT/HCPCS: 99214 ==

== ENCOUNTER → 2023-04-03 10:15 | Outpatient (BNVA) | payer MEDICARE, OTHER, MEDICAID, SELFPAY | PROVIDERS: PCP Family Medicine; Visit Provider Internal Medicine Pulmonary Disease | DX: J45.20 Mild intermittent asthma, uncomplicated (principal); R06.02 Shortness of breath | CPT/HCPCS: 99214 ==

== ENCOUNTER → 2023-04-28 11:03 | Outpatient (BNVA) | payer MEDICARE, OTHER, MEDICAID, SELFPAY | PROVIDERS: PCP Family Medicine; Visit Provider Nurse Practitioner Family | DX: L57.0 Actinic keratosis (principal); I87.2 Venous insufficiency (chronic) (peripheral); L57.8 Other skin changes due to chronic exposure to nonionizing radiation; L85.3 Xerosis cutis; D22.5 Melanocytic nevi of trunk | CPT/HCPCS: 17000; 17003; 99203 ==

== ENCOUNTER 2023-06-12 10:48 | Outpatient (CLI) | payer MEDICARE, OTHER, MEDICAID, SELFPAY ==
--- NOTE | 2023-06-12 11:15 | USCV_ITS ---
Lelia Mcguire Age: 77 Gender: F : 1945 Exam Date: 06/12/2023 11:45 Ordering Phys: Nhan Perrin M.D ([email or web address]) Technologist: CT Exam Location: [facility] – [place] Indication: ao stenosis BP: 150 / 70 HR: 62 Rhythm: Sinus Technical Quality: Adequate MEASUREMENTS (Male / Female) Normal Values 2D ECHO LV Chamber Size 5.1 cm RV Chamber Size 3.0 cm LVOT Diameter 2.0 cm LV Ejection Fraction MOD 2C 58.3 % LV Ejection Fraction 2C AL 57.5 % LA Diameter 4.7 cm LA Width 6.0 cm LA Height 6.5 cm RA Width 5.0 cm RA Height 6.0 cm Aorta at Sinotubular Diameter 2.2 cm IVC Diameter 2.4 cm M-MODE Aortic Annulus Diameter 2.7 cm LA Ao Ratio MM 1.9 MV E Point Septal Separation 0.3 cm DOPPLER AV Peak Velocity 266.0 cm/s LVOT Peak Velocity 254.0 cm/s AV Area Cont Eq vti 2.9 cm squared AV Area Cont Eq pk 3.1 cm squared MV Area PHT 4.9 cm squared Mitral E to A Ratio 1.9 MV E' Velocity 66.0 cm/s Mitral E to MV E' Ratio 6.3 Mitral E to LV E' Lateral Ratio 6.3 Mitral E to LV E' Septal Ratio 6.2 TR Peak Velocity 219.7 cm/s TR Peak Gradient 19.3 mmHg TV Peak E Velocity 84.0 cm/s Right Atrial Pressure 5.0 mmHg Pulmonary Artery Systolic Pressu 24.3 mmHg PV Peak Velocity 133.0 cm/s FINDINGS Left Ventricle Left ventricle is normal in size. LV systolic function is normal with EF 55 to 60%. No regional wall motion abnormalities are seen. Right Ventricle Normal in size and function Right Atrium Normal in size Left Atrium Dilated Mitral Valve Structurally normal mitral valve. Mild mitral regurgitation. Aortic Valve Aortic valve is thickened and calcified. Mild aortic stenosis with mean gradient across aortic valve 13 mmHg. Moderate aortic regurgitation. Tricuspid Valve Mild tricuspid regurgitation. Insufficient TR jet to calculate RVSP. Pulmonic Valve Not well visualized Pericardium Normal Aorta Normal in size IVC Dilated CONCLUSIONS LV systolic function is normal with EF 55 to 60%. Left atrial dilation Mild mitral regurgitation Mild aortic stenosis Moderate aortic regurgitation Mild tricuspid regurgitation Compared to prior echocardiogram from 07/05/2022, no significant changes are seen. Nhan Perrin MD (Electronically Signed) Final Date: 21 June 2023 14:04 S
== END 2023-06-12 10:49 | disposition home or self-care (01) ==
PROVIDERS: PCP Family Medicine; Visit Provider Internal Medicine
DX: I35.2 Nonrheumatic aortic (valve) stenosis with insufficiency (principal); I34.0 Nonrheumatic mitral (valve) insufficiency; I07.1 Rheumatic tricuspid insufficiency
CPT/HCPCS: 93306

== ENCOUNTER → 2023-07-16 14:32 | Outpatient (BNVA) | payer MEDICARE, OTHER, MEDICAID, SELFPAY | PROVIDERS: PCP Family Medicine; Visit Provider Internal Medicine | DX: I35.2 Nonrheumatic aortic (valve) stenosis with insufficiency (principal); Z79.01 Long term (current) use of anticoagulants; E66.9 Obesity, unspecified; I27.21 Secondary pulmonary arterial hypertension; G47.33 Obstructive sleep apnea (adult) (pediatric); I48.11 Longstanding persistent atrial fibrillation; Z68.36 Body mass index [BMI] 36.0-36.9, adult | CPT/HCPCS: 99214 ==

== ENCOUNTER 2023-11-03 06:00 | Outpatient (RCR) | payer MEDICARE, OTHER, MEDICAID, SELFPAY | END 2023-11-15 23:59 | disposition home or self-care (01) | LOC: TPT 06:00 | PROVIDERS: Visit Provider Family Medicine | DX: M25.562 Pain in left knee (principal); M25.561 Pain in right knee; R53.1 Weakness; R26.89 Other abnormalities of gait and mobility | CPT/HCPCS: 97110; 97163 ==

== ENCOUNTER 2023-11-16 06:00 | Outpatient (RCR) | payer MEDICARE, OTHER, MEDICAID, SELFPAY | END 2023-12-16 23:59 | disposition home or self-care (01) | LOC: TPT 06:00 | PROVIDERS: Visit Provider Family Medicine | DX: M25.561 Pain in right knee (principal); M25.562 Pain in left knee; R53.1 Weakness | CPT/HCPCS: 97110 ==

== ENCOUNTER → 2023-11-26 12:07 | Outpatient (BNVA) | payer MEDICARE, OTHER, MEDICAID, SELFPAY | PROVIDERS: PCP Family Medicine; Visit Provider Family Medicine | DX: I10 Essential (primary) hypertension (principal); E83.42 Hypomagnesemia; I48.11 Longstanding persistent atrial fibrillation | CPT/HCPCS: 80053; 80061; 83735; 84443; 85025 ==

== ENCOUNTER 2023-12-17 06:00 | Outpatient (RCR) | payer MEDICARE, OTHER, MEDICAID, SELFPAY | END 2024-01-14 23:59 | disposition home or self-care (01) | LOC: TPT 06:00 | PROVIDERS: PCP Family Medicine; Visit Provider Family Medicine | DX: M25.561 Pain in right knee (principal); M25.562 Pain in left knee; R53.1 Weakness | CPT/HCPCS: 97110 ==

== ENCOUNTER 2024-01-15 06:00 | Outpatient (RCR) | payer MEDICARE, OTHER, MEDICAID, SELFPAY | END 2024-02-14 23:59 | disposition home or self-care (01) | LOC: TPT 06:00 | PROVIDERS: PCP Family Medicine; Visit Provider Family Medicine | DX: M25.561 Pain in right knee (principal); M25.562 Pain in left knee; R53.1 Weakness | CPT/HCPCS: 97110 ==

== ENCOUNTER 2024-02-15 06:00 | Outpatient (RCR) | payer MEDICARE, OTHER, MEDICAID, SELFPAY | END 2024-03-15 23:59 | disposition home or self-care (01) | LOC: TPT 06:00 | PROVIDERS: PCP Family Medicine; Visit Provider Family Medicine | DX: M25.561 Pain in right knee (principal); M25.562 Pain in left knee; R53.1 Weakness | CPT/HCPCS: 97110 ==

== ENCOUNTER 2024-03-20 11:57 | Emergency (ER) | payer MEDICARE, OTHER, MEDICAID, SELFPAY ==
[2024-03-20 12:17] VITALS: BP 159/67; PULSE 58; RESP 17; TEMP 36.6; O2SAT 96
--- NOTE | 2024-03-20 14:18 | W.ED.BACK ---
HPI - Back Pain/Injury General: Chief Complaint: Back Pain/Injury Stated Complaint: right side pain radiates to back Time Seen by Provider: 03/20/24 13:58 Source: patient Mode of arrival: ambulatory History of Present Illness: 78-year-old female comes into the emergency room complaining of right-sided low back pain. She fell 5 days ago while working in the yard. Began hurting significantly next day and progressively worse since then. Did not strike her head no loss consciousness. She localizes more the pain to the right side of the pelvis and the right hip worse when she bears weight tries to walk does not bother her as much while she is sitting or supine. MD elicited complaint: back pain Pertinent past history: prior back pain Onset (ago): day(s) Timing: constant Severity: moderate Similar Symptoms Previously: Yes Location: lumbar spine (Right sided) Associated symptoms: Deny abdominal pain, arthralgias, chills, change in bowel habits, difficulty walking, dysuria, fatigue, fecal incontinence, fever(s), hematuria, myalgias, nausea, numbness, syncope, tingling/numbness/burning, urinary frequency, urinary urgency, vomiting or weakness Work related injury: No Review of Systems Const: Denies: fever(s), chills or fatigue Card: Denies: syncope Resp: Denies: dyspnea GI: Denies: abdominal pain, nausea, vomiting, fecal incontinence or change in bowel habits : Denies: dysuria, urinary urgency or hematuria Musc: Denies: neck pain or back pain Skin/Breast: Denies: rash Neuro: Denies: difficulty walking PFSH ED PFSH: Medical History Light headedness Exertional dyspnea Acute UTI Chronic atrial fibrillation Hematuria Transaminitis Chest pain Symptomatic bradycardia Anticoagulation adequate with anticoagulant therapy COPD (chronic obstructive pulmonary disease) Aortic insufficiency with aortic stenosis Pulmonary arterial hypertension Sleep apnea Hypertension Atrial fibrillation DVT (deep venous thrombosis) CAD (coronary artery disease) Surgical History Status post laparoscopic cholecystectomy (03/06/21) H/O left knee surgery H/O right knee surgery H/O tubal ligation History of colonoscopy with polypectomy 2016 History of esophagogastroduodenoscopy (EGD) Family History Other CAD (coronary artery disease) Social History Smoking and tobacco/nicotine status: never used tobacco/nicotine Second hand smoke exposure: No Alcohol intake: never Substance/Drug Use: never Lives independently: Yes Household members: none Marital status: / Current occupational status: retired Do you think of yourself as: Straight/Heterosexual Current gender identity: Female Female Reproductive History: Spontaneous abortions: No Physical Exam Const: GENERAL APPEARANCE: cooperative and comfortable ORIENTATION/CONSCIOUSNESS: Yes awake, Yes oriented to person, Yes oriented to place and Yes oriented to time HENMT: COMMON NORMALS: normocephalic, atraumatic and hearing grossly normal bilaterally HEAD & SCALP: normocephalic and atraumatic Resp: COMMON NORMALS: normal respiratory effort, No retractions and No use of accessory muscles AUSCULTATION: crackles Cardio: COMMON NORMALS: regular rate, regular rhythm and No murmurs present (Cardio) RATE: regular rate RHYTHM: regular rhythm GI: COMMON NORMALS: Soft to palpation and No hepatosplenomegaly present AUSCULTATION: Yes normoactive bowel sounds PALPATION: Yes Soft to palpation, No Tenderness to palpation present (GI), No Guarding due to palpation present (GI) and Yes No hepatosplenomegaly present Back/Pelvis: OTHER: No pain with palpation of the lumbar spine Extremity: COMMON NORMALS: normal to inspection and capillary refill normal GENERAL: Yes edema OTHER: Discomfort with palpation along the right hip and iliac crest. Neuro: SENSORIUM/ORIENTATION: Yes oriented to person, Yes oriented to place and Yes oriented to time Skin: COMMON NORMALS: no rashes or lesions noted GENERAL SKIN EXAM: no rashes or lesions noted Course Vital Signs: Vital signs: Vital Signs Temperature 97.9 F 03/20/24 12:17 Pulse Rate 59 L 03/20/24 14:30 Respiratory Rate 17 03/20/24 12:17 Blood Pressure 193/64 03/20/24 14:30 Pulse Oximetry 95 03/20/24 14:30 Oxygen Delivery Me thod Room Air 03/20/24 14:30 MDM - Back Pain/Injury Medical Decision Making Patient's main complaint is the right hip CT did not show any fracture of the pelvis. She has been able to bear some weight. Will discharge patient home she has hydrocodone at home also give her tizanidine to use as needed recheck with her primary care doctor if not improving Medical Records I reviewed the patient's medical records. Labs I reviewed the patient's lab results. Radiology Impressions Pelvis CT 03/20/24 14:26 IMPRESSION: No acute fracture or dislocation All radiology interpretation(s) finalized by discharge Discharge Plan Discharge Patient Disposition: Home Clinical Impression: Fall, Contusion of hip Condition: Stable Prescriptions: New tizanidine 4 mg tablet 4 mg PO Q6H PRN (Reason: muscle spasticity) Qty: 20 0RF Rx Instructions: do not exceed 3 doses per 24 hrs No Action cetirizine 10 mg tablet 10 mg PO BID PRN (Reason: allergy symptoms) Qty: 180 3RF isosorbide mononitrate 30 mg tablet extended release 24 hr 30 mg PO DAILY Qty: 90 3RF furosemide 20 mg tablet See Rx Instructions .ROUTE .COMPLEX Qty: 180 1RF Dose Instruction: TAKE 2 TABLETS BY MOUTH EVERY DAY NEEDED FOR EDEMA Rx Instructions: TAKE 2 TABLETS BY MOUTH EVERY DAY NEEDED FOR EDEMA Xarelto 20 mg tablet See Rx Instructions .ROUTE .COMPLEX Qty: 90 3RF Hold Instructions: Resume on 03/08/21. Dose Instruction: TAKE 1 TABLET BY MOUTH EVERY DAY IN THE EVENING Rx Instructions: TAKE 1 TABLET BY MOUTH EVERY DAY IN THE EVENING potassium chloride 10 mEq tablet extended release 20 meq PO DAILY Qty: 180 3RF hydrocodone-acetaminophen 5-325 mg tablet 1 tab PO Q8H PRN (Reason: pain) 7 Days Qty: 20 0RF nitroglycerin 0.4 mg tablet, sublingual 0.4 mg sublingual Q5M PRN (Reason: chest pain) Qty: 25 2RF Rx Instructions: do not exceed 3 doses per episode lisinopril 2.5 mg tablet 2.5 mg PO QAM Qty: 90 3RF cyanocobalamin (vitamin B-12) [Vitamin B-12] 1,000 mcg Tablet 1,000 mcg PO QPM calcium carbonate 500 mg calcium (1,250 mg) Tablet 500 mg PO QPM cholecalciferol (vitamin D3) [Vitamin D3] 50 mcg (2,000 unit) Tablet 50 mcg PO QPM Discharge Orders: Discharge ED (Routine); Ordered 03/20/24 Ordered By: Ranjeet Carvalho Referrals: Ric Esquivel, [Primary Care Provider] - Discharge Diet: Usual diet Discharge Activity: Increase activity as tolerated Patient Instructions: Opioid Safety, Pain Management Activity Restrictions/Additional Instructions: Thank you for choosing [facility] for your healthcare needs today. Please realize this is an emergency room and that we are providing you with a medical screening exam and this may not be complete and all inclusive of all the testing and or work up that you may need to determine your ailment or severity of your illness. It is very important that you follow up as instructed or that you return to the Emergency Department should you have concerns or if your condition changes or worsens in any way. CT of your pelvis did not show any fractures of the pelvis or hip. Discharge home you can use previously prescribed pain medications as needed if symptoms persist recheck Coding Level of Care Code ED Communications Systems Engineer for Isabel Ulloa
--- NOTE | 2024-03-20 14:26 | CTR_ITS ---
PROCEDURE INFORMATION: Exam: CT Pelvis Without Contrast; Skeletal Exam date and time: 03/20/2024 3:05 PM Age: 78 years old Clinical indication: Injury or trauma; Fall; Blunt trauma (contusions or hematomas); Right; Hip and pelvic region; Additional info: Fall - R hip pelbic pain TECHNIQUE: Imaging protocol: Computed tomography of the pelvis without contrast. Exam focused on the skeleton. Radiation optimization: All CT scans at this facility use at least one of these dose optimization techniques: automated exposure control; mA and/or kV adjustment per patient size (includes targeted exams where dose is matched to clinical indication); or iterative reconstruction. COMPARISON: CT abdomen pelvis wo con [id number] 06/16/2022 12:55 PM RADIATION DOSE METRICS: Total DLP (mGy-cm): 631.94 FINDINGS: Intestine: Diverticulosis of the sigmoid colon and descending colon with no changes of diverticulitis. Vasculature: There are aortic calcifications. Aortic calcifications. Reproductive: Calcified uterine fibroids. Bones/joints: Demineralization of the visualized bones. Mild degenerative disease of bilateral sacroiliac joints. Moderate degenerative disease of the left hip joint. Severe degenerative disease of the right hip joint. Mild degenerative disease of the symphysis pubis. Bilateral facet joint arthropathy at L4-L5 with anterolisthesis of L4 over L5. Soft tissues: Small umbilical hernia containing fat and small bowel loops but no evidence of small bowel obstruction. CT/CT pelvis con [id number] IMPRESSION: No acute fracture or dislocation
[2024-03-20 14:30] VITALS: BP 193/64; PULSE 59; O2SAT 95
== END 2024-03-20 16:35 | disposition home or self-care (01) ==
PROVIDERS: Emergency Provider Family Medicine; PCP Family Medicine
DX: S70.01XA Contusion of right hip, initial encounter (principal); W19.XXXA Unspecified fall, initial encounter; J44.9 Chronic obstructive pulmonary disease, unspecified; I10 Essential (primary) hypertension; I25.10 Atherosclerotic heart disease of native coronary artery without angina pectoris
CPT/HCPCS: 72192; 99284

== ENCOUNTER 2024-03-28 09:40 | Outpatient (CLI) | payer MEDICARE, OTHER, MEDICAID, SELFPAY ==
--- NOTE | 2024-03-28 10:00 | USCV_ITS ---
Lelia Mcguire Age: 78 Gender: F : 1945 Exam Date: 03/28/2024 10:10 Ordering Phys: Ric Esquivel DO Technologist: CT [place]am [place] [facility] [place] Indication: as BP: / HR: 106 Rhythm: Sinus Technical Quality: Adequate MEASUREMENTS (Male / Female) Normal Values 2D ECHO LVOT Diameter 2.1 cm LV Ejection Fraction MOD 2C 77.5 % LV Ejection Fraction 2C AL 77.5 % LA Diameter 5.7 cm RA Systolic Volume 4C AL 71.9 ml RA Systolic Volume 4C MOD 72.8 ml LA Sys Volume AL 145.7 cm cubed LA Sys Volume Index AL 69.7 cm cubed/m squared Aorta at Sinotubular Diameter 2.1 cm IVC Diameter 2.2 cm M-MODE LA Ao Ratio MM 2.8 AV Cusp Separation MM 1.8 cm DOPPLER AV Peak Velocity 280.0 cm/s LVOT Peak Velocity 177.0 cm/s AV Area Cont Eq vti 2.2 cm squared AV Area Cont Eq pk 2.2 cm squared MV Area PHT 3.9 cm squared Mitral E to A Ratio 2.0 TV Peak Velocity 268.0 cm/s TR Peak Velocity 289.0 cm/s TR Peak Gradient 33.4 mmHg TV Peak E Velocity 81.0 cm/s Right Atrial Pressure 3.0 mmHg Pulmonary Artery Systolic Pressu 36.4 mmHg PV Peak Velocity 128.5 cm/s FINDINGS Left Ventricle Left ventricle is normal size. LV systolic function is normal with EF of 60 to 65%. No regional wall motion abnormalities are seen. Right Ventricle Normal in size and function Right Atrium Dilated Left Atrium Severely dilated Mitral Valve Mild mitral annular calcification. Mild to moderate mitral regurgitation. Aortic Valve Aortic valve is thickened. Mild aortic stenosis with aortic valve area of 2 cm squared and mean gradient of 16 mmHg. Mild to moderate aortic regurgitation. Tricuspid Valve Mild tricuspid regurgitation. RVSP is 35 to 40 mmHg. This is consistent with mild pulmonary hypertension. Pulmonic Valve Not well visualized Pericardium Normal Aorta Normal in size IVC Appears to be dilated. CONCLUSIONS LV systolic function is normal with EF of 60 to 65%. Biatrial enlargement Mild to moderate mitral regurgitation. Mild to moderate aortic regurgitation. Mild aortic stenosis. Mild tricuspid regurgitation. Mild pulmonary hypertension IVC appears to be dilated. Compared to prior echocardiogram from 2022, no significant changes are seen. Nhan Perrin MD (Electronically Signed) Final Date: 09 Apr 2024 21:31 S
--- NOTE | 2024-03-28 11:00 | USCV_ITS ---
Lelia Mcguire Age: 78 Gender: F : 1945 Exam Date: 03/28/2024 09:54 Ordering Phys: Ric Esquivel DO Technologist: GABRIEL Exam Location: [facility] [place] Indication: Pre-syncope Risk Factors: Previous Vascular Surgery: Right Brachial BP: / Left Brachial BP: / Right Left Velocity (cm/s) Spectral Plaque Velocity (cm/s) Spectral Plaque Syst/Diast Broadening Syst/Diast Broadening 86.00/ 7.40 Prox CCA 78.20 / 17.70 95.70/ 11.70 Mid CCA 80.40 / 9.20 86.70/ 11.50 Distal CCA 59.30 / 11.90 67.30/ 13.40 Prox ICA 63.00 / 10.90 62.90/ 14.40 Mid ICA 78.80 / 14.70 71.00/ 5.90 Distal ICA 64.90 / 11.30 129.40 ECA 90.30 0.80 ICA/CCA 1.30 Antegrade Vertebral Antegrade 42.70/ 7.70 cm/s 45.90/ 7.80 cm/s Tri Subclavian Tri 120.1 114.3 0 0 CONCLUSIONS Right ICA stenosis <50%. Mild atheromatous plaque right carotid bulb/ICA. Left ICA stenosis <50%. Mild atheromatous plaque left carotid bulb/ICA. Normal antegrade Doppler flow noted in the right vertebral artery. Normal antegrade Doppler flow noted in the left vertebral artery. David Conner MD (Electronically Signed) Final Date: 28 Mar 2024 15:51 S
== END 2024-03-28 09:41 | disposition home or self-care (01) ==
LOC: RAD 09:41
PROVIDERS: PCP Family Medicine; Visit Provider Family Medicine
DX: R26.89 Other abnormalities of gait and mobility (principal); I35.0 Nonrheumatic aortic (valve) stenosis; R55 Syncope and collapse; I65.23 Occlusion and stenosis of bilateral carotid arteries
CPT/HCPCS: 93306; 93880

== ENCOUNTER → 2024-04-28 10:09 | Outpatient (BNVA) | payer MEDICARE, OTHER, MEDICAID, SELFPAY | PROVIDERS: PCP Family Medicine; Visit Provider Nurse Practitioner Family | DX: L57.0 Actinic keratosis (principal); D22.5 Melanocytic nevi of trunk; L72.0 Epidermal cyst; L57.8 Other skin changes due to chronic exposure to nonionizing radiation; L81.4 Other melanin hyperpigmentation; Z85.828 Personal history of other malignant neoplasm of skin | CPT/HCPCS: 17000; 99213 ==

== ENCOUNTER 2024-07-13 09:15 | Outpatient (CLI) | payer MEDICARE, OTHER, MEDICAID, SELFPAY ==
[2024-07-13 10:18] LABS: Thyroid Stimulating Hormone 1.53 uIU/mL (0.27-4.20)
== END 2024-07-13 09:16 | disposition home or self-care (01) ==
LOC: LAB 09:18
PROVIDERS: PCP Family Medicine; Visit Provider Internal Medicine
DX: I48.11 Longstanding persistent atrial fibrillation (principal); R00.1 Bradycardia, unspecified; I49.3 Ventricular premature depolarization
CPT/HCPCS: 36415; 84443

== ENCOUNTER 2024-07-18 13:29 | Emergency (ER) | payer MEDICARE, OTHER, MEDICAID, SELFPAY ==
--- NOTE | 2024-07-18 13:30 | XRR_ITS ---
PROCEDURE INFORMATION: Exam: XR Chest Exam date and time: 07/18/2024 1:34 PM Age: 78 years old Clinical indication: Pain; Chest pressure; Additional info: Cp TECHNIQUE: Imaging protocol: Radiologic exam of the chest. Views: 1 view. COMPARISON: CR XR chest 1V portable [id number] 06/16/2022 11:41 AM FINDINGS: Airway: Airways are patent. Lungs: Increased haziness in the left lung base. Remainder of the lungs are clear. Pleural spaces: No pleural effusions or pneumothorax. Heart/Mediastinum: Moderate cardiomegaly. Vasculature: Calcified aortic knob. Tortuous aorta. Bones/joints: No acute skeletal abnormality. Soft tissues: No acute soft tissue findings. XR/XR chest 1V portable [id number] IMPRESSION: Increased haziness in the left lung base. This is likely related to artifact from superimposition of structures. Superimposed infectious pneumonic process should be entertained in the appropriate clinical setting.
--- NOTE | 2024-07-18 13:32 | ECG_ITS ---
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 Measurements Intervals [place] Rate: 58 P: 0 VT: 0 QRS: 72 QRSD: 89 T: 30 QT: 431 QTc: 425 Interpretive Statements ATRIAL FIBRILLATION WITH SLOW VENTRICULAR RATE SEPTAL MYOCARDIAL INFARCTION , OF INDETERMINATE AGE [40+ ms Q WAVE IN V1/V2] Compared to ECG 06/16/2022 13:13:14 Ventricular premature complex(es) now present Electronically Signed On 07-18-2024 18:08:41 CDT by Nhan Perrin M.D. [id number]
[2024-07-18 13:36] VITALS: PULSE 53; RESP 18; TEMP 36.8; O2SAT 95
--- NOTE | 2024-07-18 13:41 | ED_ITS ---
HPI - Chest Pain 2 General: Chief Complaint: Chest Pain Stated Complaint: cp Time Seen by Provider: 07/18/24 13:30 Source: patient and EMS Mode of arrival: EMS Limitations: no limitations History of Present Illness: 78-year-old female who states she starte d having some sharp chest pain this morning states she is also felt like she was going to pass out. She has a history of A-fib states she has been dealing with bradycardia and has been worked up for it. She states she continues to have bradycardia though. She denies any shortness of breath denies any fever denies any vomiting or diarrhea Associated symptoms: Deny abdominal pain, dyspnea, fever(s), nausea or vomiting Related Data Home Medications Medication Instructions Recorded Confirmed cyanocobalamin (vitamin B-12) 1,000 mcg PO QPM 05/30/21 06/22/24 1,000 mcg tablet (Vitamin B-12) calcium carbonate 500 mg PO QPM 05/20/22 06/22/24 cholecalciferol (vitamin D3) 50 50 mcg PO QPM 05/20/22 06/22/24 mcg (2,000 unit) tablet (Vitamin D3) Previous Rx's Medication Instructions Recorded nitroglycerin 0.4 mg sublingual 0.4 mg sublingual Q5M PRN chest 04/07/23 tablet pain #25 tabs cetirizine 10 mg tablet 10 mg PO BID PRN allergy symptoms 06/10/23 #180 tabs isosorbide mononitrate 30 mg 30 mg PO DAILY #90 tabs 11/26/23 tablet,extended release 24 hr lisinopril 2.5 mg tablet 2.5 mg PO QAM #90 tabs 12/18/23 furosemide 20 mg tablet See Rx Instructions .Route 01/07/24 .COMPLEX #180 tabs hydrocodone 5 mg-acetaminophen 325 1 tab PO Q8H PRN pain 7 days #20 01/07/24 mg tablet tabs potassium chloride 10 mEq 20 meq (2 x 10 mEq) PO DAILY #180 01/07/24 tablet,extended release tabs rivaroxaban 20 mg tablet (Xarelto) See Rx Instructions .Route 01/07/24 .COMPLEX #90 tabs tizanidine 4 mg tablet 4 mg PO Q6H PRN muscle spasticity 03/20/24 #20 tabs hydrocortisone 2.5 % topical cream 1 applic topical BID PRN skin 04/19/24 irritation #30 grams ketoconazole 2 % topical cream See Rx Instructions .Route 05/20/24 .COMPLEX #30 grams bupropion HCl 150 mg 24 hr tablet, 150 mg PO QAM #30 tabs 06/22/24 extended release (Wellbutrin XL) Allergies Allergy/AdvReac Type Severity Reaction Status Date / Time iodine Allergy Unknown ALGY-Bliste Verified 06/22/24 10:16 r metoprolol Allergy Unknown Unknown Verified 06/22/24 10:16 alcohol Allergy ALGY-Hives Verified 06/22/24 10:16 alfalfa Allergy ALGY-Rash Verified 06/22/24 10:16 aloe vera Allergy ALGY-Bliste Verified 06/22/24 10:16 r atenolol Allergy ALGY-Swell Verified 06/22/24 10:16 Lip/Tongue/Throat bamboo Allergy ALGY-Rash Verified 06/22/24 10:16 barley Allergy ALGY-Rash Verified 06/22/24 10:16 bran Allergy ALGY-Hives Verified 06/22/24 10:16 [place] And Derivatives Allergy ALGY-Hives Verified 06/22/24 10:16 clams Allergy ALGY-Difficulty Verified 06/22/24 10:16 Swallowing crab Allergy Unknown Verified 06/22/24 10:16 crayfish Allergy Unknown Verified 06/22/24 10:16 diphenhydramine Allergy ADR-Itching Verified 06/22/24 10:16 [From Benadryl] epinephrine Allergy ADR/ALGY-Pa Verified 06/22/24 10:16 lpitations grapefruit Allergy Unknown Verified 06/22/24 10:16 grass pollen Allergy ALGY-Rash Verified 06/22/24 10:16 juniper tar Allergy Unknown Verified 06/22/24 10:16 kiwi Allergy ALGY-Hives Verified 06/22/24 10:16 latex Allergy ALGY-Rash Verified 06/22/24 10:16 lavender (Lavandula Allergy ALGY-Rash Verified 06/22/24 10:16 angustifolia) lemon Allergy ALGY-Rash Verified 06/22/24 10:16 lemon oil Allergy ALGY-Rash Verified 06/22/24 10:16 licorice Allergy Unknown Verified 06/22/24 10:16 [place] Allergy Unknown Verified 06/22/24 10:16 molasses Allergy Unknown Verified 06/22/24 10:16 mold Allergy ALGY-Rash Verified 06/22/24 10:16 mussels Allergy Unknown Verified 06/22/24 10:16 nut - unspecified Allergy ALGY-Hives Verified 06/22/24 10:16 oats Allergy ALGY-Hives Verified 06/22/24 10:16 octopus Allergy Unknown Verified 06/22/24 10:16 orange Allergy ALGY-Rash Verified 06/22/24 10:16 oyster extract Allergy Unresponsiv Verified 06/22/24 10:16 e passion fruit Allergy Unknown Verified 06/22/24 10:16 scallops Allergy Unknown Verified 06/22/24 10:16 shellfish derived Allergy ALGY-Swell Verified 06/22/24 10:16 Lip/Tongue/Throat shrimp Allergy Unknown Verified 06/22/24 10:16 squid Allergy Unknown Verified 06/22/24 10:16 wheat Allergy ALGY-Hives Verified 06/22/24 10:16 shell fish Allergy Severe ALGY-Swell Uncoded 06/22/24 10:16 Lip/Tongue/Throat abolone Allergy Unknown Uncoded 06/22/24 10:16 anchovie Allergy ALGY-Hives Uncoded 06/22/24 10:16 antibacterial soap Allergy Unknown Uncoded 06/22/24 10:16 berries Allergy ALGY-Hives Uncoded 06/22/24 10:16 carob Allergy Unknown Uncoded 06/22/24 10:16 contrast dye Allergy ALGY-Difficulty Uncoded 06/22/24 10:16 Breathing gold Allergy Unknown Uncoded 06/22/24 10:16 hemp oil Allergy ALGY-Rash Uncoded 06/22/24 10:16 kumquat Allergy Unknown Uncoded 06/22/24 10:16 lobster Allergy Unknown Uncoded 06/22/24 10:16 malt Allergy ALGY-Bliste Uncoded 06/22/24 10:16 r mesquite Allergy Unknown Uncoded 06/22/24 10:16 millet Allergy ALGY-Rash Uncoded 06/22/24 10:16 mink oil Allergy ALGY-Rash Uncoded 06/22/24 10:16 mola Allergy Unknown Uncoded 06/22/24 10:16 MSG Allergy Unknown Uncoded 06/22/24 10:16 prawn Allergy Unknown Uncoded 06/22/24 10:16 rye Allergy ALGY-Rash Uncoded 06/22/24 10:16 snail Allergy Unknown Uncoded 06/22/24 10:16 sorghum Allergy Unknown Uncoded 06/22/24 10:16 tangello Allergy Unresponsiv Uncoded 06/22/24 10:16 e tangerine Allergy Unknown Uncoded 06/22/24 10:16 [facility] sauce AdvReac Severe ALGY-Swell Uncoded 06/22/24 10:16 Lip/Tongue/Throat Review of Systems 2 Const: Denies: fever(s), chills, body aches or change in appetite ENMT: Denies: throat pain or dental pain Card: Reports: chest pain Resp: Denies: dyspnea GI: Denies: abdominal pain, nausea, vomiting or diarrhea : Denies: dysuria Musc: Denies: neck pain or back pain Skin/Breast: Denies: rash Neuro: Denies: headache(s) PFSH ED 2 PFSH: Medical History Light headedness Exertional dyspnea Acute UTI Chronic atrial fibrillation Hematuria Transaminitis Chest pain Symptomatic bradycardia Anticoagulation adequate with anticoagulant therapy COPD (chronic obstructive pulmonary disease) Aortic insufficiency with aortic stenosis Pulmonary arterial hypertension Sleep apnea Hypertension Atrial fibrillation DVT (deep venous thrombosis) CAD (coronary artery disease) Surgical History Status post laparoscopic cholecystectomy (03/06/21) H/O left knee surgery H/O right knee surgery H/O tubal ligation History of colonoscopy with polypectomy 2017 History of esophagogastroduodenoscopy (EGD) Family History Other CAD (coronary artery disease) Social History Smoking and tobacco/nicotine status: never used tobacco/nicotine Second hand smoke exposure: No Alcohol intake: never Substance/Drug Use: never Lives independently: Yes Household members: none Marital status: / Current occupational status: retired Do you think of yourself as: Straight/Heterosexual Current gender identity: Female Female Reproductive History: Spontaneous abortions: No Physical Exam 2 Const: COMMON NORMALS: no acute distress, patient oriented x3 and healthy appearing HENMT: COMMON NORMALS: normocephalic and atraumatic HEAD & SCALP: n ormocephalic and atraumatic Eye: COMMON NORMALS: conjunctivae normal CONJUNCTIVA: Yes conjunctivae normal Neck/C-Spine: COMMON NORMALS: full ROM and supple Chest: COMMONS NORMALS: normal inspection of the chest and normal palpation of entire chest wall Resp: COMMON NORMALS: normal respiratory effort, No retractions, No use of accessory muscles and clear to auscultation bilaterally AUSCULTATION: clear to auscultation bilaterally Cardio: COMMON NORMALS: regular rhythm and No murmurs present (Cardio) R ATE: bradycardic RHYTHM: regular rhythm GI: COMMON NORMALS: Normal to inspection, nondistended, normoactive bowel sounds present, Soft to palpation, non-tender and no masses PALPATION: Yes Soft to palpation Extremity: COMMON NORMALS: normal to inspection and full ROM Neuro: COMMON NORMALS: patient oriented x3, moves all extremities and no focal motor deficits Psych: COMMON NORMALS: mental status grossly normal, Normal thought process present and cooperative THOUGHT PROCESS: Normal thought process present Skin: COMMON NORMALS: no rashes or lesions noted and no wounds GENERAL SKIN EXAM: no rashes or lesions noted Course 2 Vital Signs: Vital signs: Vital Signs Temperature 98.2 F 07/18/24 13:36 Pulse Rate 53 L 07/18/24 13:36 Respiratory Rate 18 07/18/24 13:36 Pulse Oximetry 95 07/18/24 13:36 Oxygen Delivery Me thod Room Air 07/18/24 13:36 MDM - Chest Pain Medical Decision Making Patient presents here with chest pain is atypical in nature initial and repeat troponin here negative she has no signs of ACS or pulmonary embolism she feels improved here she is stable for discharge she is follow-up with PCP and return if worsening she understands agrees to plan. Medical Records I reviewed the patient's medical records. Lab Data I reviewed the patient's lab results. 07/18/24 14:09 07/18/24 14:09 Radiology Impressions Chest X-Ray 07/18/24 13:30 IMPRESSION: Increased haziness in the left lung base. This is likely related to artifact from superimposition of structures. Superimposed infectious pneumonic process should be entertained in the appropriate clinical setting. Laboratory Results WBC 7.09 10^3/uL (3.29-11.43) 07/18/24 14:09 RBC 4.72 10^6/uL (3.85-5.65) 07/18/24 14:09 Hgb 14.30 g/dL (11.27-16.99) 07/18/24 14:09 Hct 43.0 % (36-47) 07/18/24 14:09 MCV 91.1 fl (85-98) 07/18/24 14:09 MCH 30.3 pg (27-33) 07/18/24 14:09 MCHC 33.3 g/dL (30-55) 07/18/24 14:09 RDW 13.9 % (12.1-15.1) 07/18/24 14:09 Plt Count 165 10^3/cmm (157-399) 07/18/24 14:09 MPV 10.0 fL (7.4-10.4) 07/18/24 14:09 Neut % (Auto) 60.7 % 07/18/24 14:09 Lymph % (Auto) 26.5 % 07/18/24 14:09 [place] % (Auto) 8.5 % 07/18/24 14:09 Eos % (Auto) 3.1 % 07/18/24 14:09 Baso % (Auto) 0.8 % 07/18/24 14:09 Neut # (Auto) 4.30 10^3/uL (1.8-7.7) 07/18/24 14:09 Lymph # (Auto) 1.9 10^3/uL (0.8-4.8) 07/18/24 14:09 [place] # (Auto) 0.6 10^3/uL (0.2-0.9) 07/18/24 14:09 Eos # (Auto) 0.2 10^3/uL (0.0-0.8) 07/18/24 14:09 Baso # (Auto) 0.1 10^3/uL (0.0-0.1) 07/18/24 14:09 Nucleated RBC % (auto) 0 % 07/18/24 14:09 Nucleated RBCs # 0.0 /100WBC 07/18/24 14:09 PT 14.20 SECONDS (12.1-14.9) 07/18/24 14:09 INR 1.07 (0.8-1.2) 07/18/24 14:09 Sodium 140 mmol/L (136-145) 07/18/24 14:09 Potassium 4.0 mmol/L (3.5-5.1) 07/18/24 14:09 Chloride 103 mmol/L (98-107) 07/18/24 14:09 Carbon Dioxide 25 mmol/L (22-29) 07/18/24 14:09 Anion Gap 16.0 (5-19) 07/18/24 14:09 BUN 17 mg/dL (8-23) 07/18/24 14:09 Creatinine 0.6 mg/dL (0.5-0.9) 07/18/24 14:09 GFR Calculation Not Reportable 07/18/24 14:09 Glucose 104 mg/dL (65-115) 07/18/24 14:09 Calculated Osmolality 292 mOsm/kg (285-295) 07/18/24 14:09 Calcium 8.8 mg/dL (8.5-10.5) 07/18/24 14:09 Total Bilirubin 0.7 mg/dL (0.15-1.2) 07/18/24 14:09 AST 23 U/L (0-32) 07/18/24 14:09 ALT 16 U/L (0-33) 07/18/24 14:09 Alkaline Phosphatase 86 U/L (35-105) 07/18/24 14:09 Troponin T Baseline 17 ng/L (0-10) H 07/18/24 14:09 Troponin T 120 Minute 15.98 ng/L (0-10) H 07/18/24 16:38 Delta Troponin T -1.02 ABS# (0-10) L 07/18/24 16:38 Total Protein 6.2 g/dL (6.6-8.7) L 07/18/24 14:09 Albumin 4.1 g/dL (3.5-5.2) 07/18/24 14:09 Globulin 2.1 g/dL (1.3-4.6) 07/18/24 14:09 Lipase 24 U/L (13-60) 07/18/24 14:09 All radiology interpretation(s) finalized by discharge EKG Data EKG 1: I personally reviewed and interpreted this EKG as follows: EKG interpretation date: 07/18/24 EKG interpretation time: 13:32 Interpretation: afib with slow rvr hr [address] elevation qrs 89 qtc 428 EKG 2: I personally reviewed and interpreted this EKG as follows: EKG interpretation date: 07/18/24 EKG interpretation time: 16:04 Interpretation: afib with slow rvr hr [address] elevation qrs 80 qtc 453 Discharge Plan Discharge Patient Disposition: Home Clinical Impression: Chest pain Condition: Stable Prescriptions: No Action cetirizine 10 mg tablet 10 mg PO BID PRN (Reason: allergy symptoms) Qty: 180 3RF hydrocortisone 2.5 % cream 1 applic topical BID PRN (Reason: skin irritation) Qty: 30 2RF isosorbide mononitrate 30 mg tablet extended release 24 hr 30 mg PO DAILY Qty: 90 3RF furosemide 20 mg tablet See Rx Instructions .ROUTE .COMPLEX Qty: 180 1RF Dose Instruction: TAKE 2 TABLETS BY MOUTH EVERY DAY NEEDED FOR EDEMA Rx Instructions: TAKE 2 TABLETS BY MOUTH EVERY DAY NEEDED FOR EDEMA Xarelto 20 mg tablet See Rx Instructions .ROUTE .COMPLEX Qty: 90 3RF Hold Instructions: Resume on 03/14/21. Dose Instruction: TAKE 1 TABLET BY MOUTH EVERY DAY IN THE EVENING Rx Instructions: TAKE 1 TABLET BY MOUTH EVERY DAY IN THE EVENING potassium chloride 10 mEq tablet extended release 20 meq PO DAILY Qty: 180 3RF hydrocodone-acetaminophen 5-325 mg tablet 1 tab PO Q8H PRN (Reason: pain) 7 Days Qty: 20 0RF bupropion HCl [Wellbutrin XL] 150 mg tablet extended release 24 hr 150 mg PO QAM Qty: 30 2RF nitroglycerin 0.4 mg tablet, sublingual 0.4 mg sublingual Q5M PRN (Reason: chest pain) Qty: 25 2RF Rx Instructions: do not exceed 3 doses per episode lisinopril 2.5 mg tablet 2.5 mg PO QAM Qty: 90 3RF ketoconazole 2 % cream See Rx Instructions .ROUTE .COMPLEX Qty: 30 2RF Dose Instruction: APPLY TOPICALLY DAILY Rx Instructions: APPLY TOPICALLY DAILY cyanocobalamin (vitamin B-12) [Vitamin B-12] 1,000 mcg Tablet 1,000 mcg PO QPM calcium carbonate 500 mg calcium (1,250 mg) Tablet 500 mg PO QPM cholecalciferol (vitamin D3) [Vitamin D3] 50 mcg (2,000 unit) Tablet 50 mcg PO QPM tizanidine 4 mg tablet 4 mg PO Q6H PRN (Reason: muscle spasticity) Qty: 20 0RF Rx Instructions: do not exceed 3 doses per 24 hrs Discharge Orders: Discharge ED (Routine); Ordered 07/18/24 Ordered By: Dianne Salmeron Referrals: Ric Esquivel DO [Primary Care Provider] - 4-7 days Discharge Diet: Advance as tolerated Discharge Activity: Resume usual activity Patient Instructions: Chest Pain (ED) Coding Level of Care Code ED Java Web Application Developer for Isabel Ulloa
[2024-07-18] MEDS: ondansetron 2 mg/ML SDV 2 mL 4 MG IVP (13:51)
[2024-07-18] MEDS: morphine 4 mg/mL SDV 1 mL IVP (13:51)
[2024-07-18 14:19] LABS: Basophils # 0.1 10^3/uL (0.0-0.1); Basophils % 0.8 %; Eosinophils # 0.2 10^3/uL (0.0-0.8); Eosinophils % 3.1 %; Lymphocytes # 1.9 10^3/uL (0.8-4.8); Lymphocytes % 26.5 %; Mean Corpuscular HGB Conc 33.3 g/dL (30-55); Mean Corpuscular Hemoglobin 30.3 pg (27-33); Mean Corpuscular Volume 91.1 fl (85-98); Monocytes # 0.6 10^3/uL (0.2-0.9); Monocytes % 8.5 %; Neutrophils % 60.7 %; Nucleated Red Blood Cells % 0 %; Platelet Count 165 10^3/cmm (157-399); Red Blood Count 4.72 10^6/uL (3.85-5.65); Red Cell Distribution Width 13.9 % (12.1-15.1); White Blood Count 7.09 10^3/uL (3.29-11.43)
[2024-07-18 14:31] LABS: INR 1.07 (0.8-1.2)
[2024-07-18 14:38] LABS: Troponin(5th) Baseline 17 ng/L (0-10)
[2024-07-18 14:46] LABS: Alanine Aminotransferase 16 U/L (0-33); Albumin Level 4.1 g/dL (3.5-5.2); Alkaline Phosphatase 86 U/L (35-105); Aspartate Amino Transferase 23 U/L (0-32); Blood Urea Nitrogen 17 mg/dL (8-23); Calcium 8.8 mg/dL (8.5-10.5); Carbon Dioxide 25 mmol/L (22-29); Chloride 103 mmol/L (98-107); Globulin 2.1 g/dL (1.3-4.6); Glucose 104 mg/dL (65-115); Lipase 24 U/L (13-60); Osmolality Calculated 292 mOsm/kg (285-295); Sodium 140 mmol/L (136-145); Total Bilirubin 0.7 mg/dL (0.15-1.2); Total Protein 6.2 g/dL (6.6-8.7)
--- NOTE | 2024-07-18 16:04 | ECG_ITS ---
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 Measurements Intervals [place] Rate: 48 P: 0 VA: 0 QRS: 68 QRSD: 80 T: 51 QT: 486 QTc: 437 Interpretive Statements ATRIAL FIBRILLATION WITH SLOW VENTRICULAR RESPONSE SEPTAL MYOCARDIAL INFARCTION , OF INDETERMINATE AGE [40+ ms Q WAVE IN V1/V2] Compared to ECG 07/18/2024 13:32:43 Sinus bradycardia no longer present Ventricular premature complex(es) no longer present Myocardial infarct finding still present Electronically Signed On 07-18-2024 18:09:12 CDT by Nhan Perrin M.D. [id number]
[2024-07-18 16:59] LABS: Troponin 5 2HR 15.98 ng/L (0-10)
[2024-07-18 17:02] LABS: Troponin 5 2HR Delta -1.02 ABS# (0-10)
[2024-07-18 17:43] VITALS: BP 139/70; PULSE 50; RESP 15; O2SAT 94
== END 2024-07-18 17:44 | disposition home or self-care (01) ==
PROVIDERS: Emergency Provider Emergency Medicine; PCP Family Medicine
DX: R07.9 Chest pain, unspecified (principal); I48.91 Unspecified atrial fibrillation; J44.9 Chronic obstructive pulmonary disease, unspecified; I10 Essential (primary) hypertension; I25.10 Atherosclerotic heart disease of native coronary artery without angina pectoris
CPT/HCPCS: 36415; 71045; 80053; 83690; 84484; 85025; 85610; 93005; 96374; 96375; 99285; J2270; J2405

== ENCOUNTER 2024-12-11 16:47 | Inpatient (IN) | payer MEDICARE, OTHER, MEDICAID, SELFPAY ==
[2024-12-11] VITALS (11 sets, daily range): BP systolic 136–159; BP diastolic 59–92; PULSE 77–104; RESP 20; TEMP 36.8; O2SAT 93–97; BMI 34.1
--- NOTE | 2024-12-11 16:58 | ECG_ITS ---
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 Measurements Intervals [place] Rate: 78 P: 0 NC: 0 QRS: 96 QRSD: 113 T: -88 QT: 358 QTc: 410 Interpretive Statements ATRIAL FIBRILLATION WITH ABERRANT CONDUCTION OR VENTRICULAR PREMATURE COMPLEXES BORDERLINE RIGHT AXIS DEVIATION [QRS AXIS > 90] ANTEROSEPTAL MYOCARDIAL INFARCTION , OF INDETERMINATE AGE [40+ ms Q WAVE IN V1-V4] ST DEVIATION AND MARKED T-WAVE ABNORMALITY, CONSIDER LATERAL ISCHEMIA [-0.5+ mV T-WAVE IN I/aVL/V5/V6] ST DEVIATION AND MODERATE T-WAVE ABNORMALITY, CONSIDER INFERIOR ISCHEMIA [-0.1+ mV T-WAVE IN II/aVF] Compared to ECG 07/18/2024 16:04:06 Ventricular premature complex(es) now present T-wave abnormality now present Myocardial infarct finding still present Electronically Signed On 12-17-2024 13:24:20 AUTO MECHANIC by Nhan Perrin M.D. [id number]
--- NOTE | 2024-12-11 17:08 | XRR_ITS ---
PROCEDURE INFORMATION: Exam: XR Chest Exam date and time: 12/11/2024 5:16 PM Age: 79 years old Clinical indication: Shortness of breath; Patient HX: SOB; Copd TECHNIQUE: Imaging protocol: Radiologic exam of the chest. Views: 1 view. COMPARISON: CR XR chest 1V portable [id number] 07/18/2024 1:34 PM FINDINGS: Lungs: Stable diffuse interstitial prominence, likely chronic. Pleural spaces: No pleural effusion or pneumothorax. Heart/Mediastinum: The cardiomediastinal silhouette is stable. Left lung bases suboptimally evaluated due to overlying dense heart and overlying soft tissue. No obvious pathology. Bones/joints: No acute osseous abnormalities are seen. XR/XR chest 1V portable [id number] IMPRESSION: No acute cardiopulmonary disease.
--- NOTE | 2024-12-11 17:13 | ED_ITS ---
HPI - SOB/Dyspnea 2 General: Chief Complaint: Shortness of Breath/Dyspnea Stated Complaint: sob Time Seen by Provider: 12/11/24 16:56 History of Present Illness: HPI Narrative: Patient is a 79-year-old female with history of atrial fibrillation on Xarelto, aortic stenosis, COPD, hypertension. Patient does not typically wear oxygen at home. She states she does not know what her baseline oxygen levels are because she does not have a pulse ox. Patient states that she has been having cough and shortness of breath since yesterday. Patient states she will start coughing and bringing up a little bit of yellow sputum. She will cough and then that will make her feel extremely short of breath. No nausea or vomiting, no diarrhea. She states she gets a little headache from her cough. No fever or chills. No back pain, no chest pain. Patient was put on 3 L nasal cannula on arrival and is currently satting 99%. Patient not working to breathe. Patient does have bilateral wheezing. She states she has a nebulizer at home but no medicine for it and she has an inhaler but she does not use her inhaler. She has done no type of breathing treatment at home. Related Data Home Medications Medication Instructions Recorded Confirmed cyanocobalamin (vitamin B-12) 1,000 mcg PO QPM 05/30/21 08/30/24 1,000 mcg tablet (Vitamin B-12) calcium carbonate 500 mg PO QPM 05/20/22 08/30/24 cholecalciferol (vitamin D3) 50 50 mcg PO QPM 05/20/22 08/30/24 mcg (2,000 unit) tablet (Vitamin D3) Previous Rx's Medication Instructions Recorded cetirizine 10 mg tablet 10 mg PO BID PRN allergy symptoms 06/10/23 #180 tabs isosorbide mononitrate 30 mg 30 mg PO DAILY #90 tabs 11/26/23 tablet,extended release 24 hr lisinopril 2.5 mg tablet 2.5 mg PO QAM #90 tabs 12/18/23 furosemide 20 mg tablet See Rx Instructions .Route 01/07/24 .COMPLEX #180 tabs hydrocodone 5 mg-acetaminophen 325 1 tab PO Q8H PRN pain 7 days #20 01/07/24 mg tablet tabs potassium chloride 10 mEq 20 meq (2 x 10 mEq) PO DAILY #180 01/07/24 tablet,extended release tabs rivaroxaban 20 mg tablet (Xarelto) See Rx Instructions .Route 01/07/24 .COMPLEX #90 tabs hydrocortisone 2.5 % topical cream 1 applic topical BID PRN skin 04/19/24 irritation #30 grams ketoconazole 2 % topical cream See Rx Instructions .Route 05/20/24 .COMPLEX #30 grams nitroglycerin 0.4 mg sublingual 0.4 mg sublingual Q5M PRN chest 08/24/24 tablet pain #25 tabs doxycycline hyclate 100 mg capsule 100 mg PO BID 10 days #20 caps 12/11/24 guaifenesin 600 mg tablet, 600 mg PO BID 3 days #6 tabs 12/11/24 extended release 12 hr (Mucinex) prednisone 20 mg tablet 40 mg (2 x 20 mg) PO DAILY 3 days 12/11/24 #6 tabs Allergies Allergy/AdvReac Type Severity Reaction Status Date / Time iodine Allergy Unknown ALGY-Bliste Verified 08/30/24 07:05 r metoprolol Allergy Unknown Unknown Verified 08/30/24 07:05 alcohol Allergy ALGY-Hives Verified 08/30/24 07:05 alfalfa Allergy ALGY-Rash Verified 08/30/24 07:05 aloe vera Allergy ALGY-Bliste Verified 08/30/24 07:05 r atenolol Allergy ALGY-Swell Verified 08/30/24 07:05 Lip/Tongue/Throat bamboo Allergy ALGY-Rash Verified 08/30/24 07:05 barley Allergy ALGY-Rash Verified 08/30/24 07:05 bran Allergy ALGY-Hives Verified 08/30/24 07:05 Galax And Derivatives Allergy ALGY-Hives Verified 08/30/24 07:05 clams Allergy ALGY-Difficulty Verified 08/30/24 07:05 Swallowing crab Allergy Unknown Verified 08/30/24 07:05 crayfish Allergy Unknown Verified 08/30/24 07:05 diphenhydramine Allergy ADR-Itching Verified 08/30/24 07:05 [From Benadryl] epinephrine Allergy ADR/ALGY-Pa Verified 08/30/24 07:05 lpitations grapefruit Allergy Unknown Verified 08/30/24 07:05 grass pollen Allergy ALGY-Rash Verified 08/30/24 07:05 juniper tar Allergy Unknown Verified 08/30/24 07:05 kiwi Allergy ALGY-Hives Verified 08/30/24 07:05 latex Allergy ALGY-Rash Verified 08/30/24 07:05 lavender (Lavandula Allergy ALGY-Rash Verified 08/30/24 07:05 angustifolia) lemon Allergy ALGY-Rash Verified 08/30/24 07:05 lemon oil Allergy ALGY-Rash Verified 08/30/24 07:05 licorice Allergy Unknown Verified 08/30/24 07:05 ruby Allergy Unknown Verified 08/30/24 07:05 molasses Allergy Unknown Verified 08/30/24 07:05 mold Allergy ALGY-Rash Verified 08/30/24 07:05 mussels Allergy Unknown Verified 08/30/24 07:05 nut - unspecified Allergy ALGY-Hives Verified 08/30/24 07:05 oats Allergy ALGY-Hives Verified 08/30/24 07:05 octopus Allergy Unknown Verified 08/30/24 07:05 orange Allergy ALGY-Rash Verified 08/30/24 07:05 oyster extract Allergy Unresponsiv Verified 08/30/24 07:05 e passion fruit Allergy Unknown Verified 08/30/24 07:05 scallops Allergy Unknown Verified 08/30/24 07:05 shellfish derived Allergy ALGY-Swell Verified 08/30/24 07:05 Lip/Tongue/Throat shrimp Allergy Unknown Verified 08/30/24 07:05 squid Allergy Unknown Verified 08/30/24 07:05 wheat Allergy ALGY-Hives Verified 08/30/24 07:05 shell fish Allergy Severe ALGY-Swell Uncoded 08/30/24 07:05 Lip/Tongue/Throat abolone Allergy Unknown Uncoded 08/30/24 07:05 anchovie Allergy ALGY-Hives Uncoded 08/30/24 07:05 antibacterial soap Allergy Unknown Uncoded 08/30/24 07:05 berries Allergy ALGY-Hives Uncoded 08/30/24 07:05 carob Allergy Unknown Uncoded 08/30/24 07:05 contrast dye Allergy ALGY-Difficulty Uncoded 08/30/24 07:05 Breathing gold Allergy Unknown Uncoded 08/30/24 07:05 hemp oil Allergy ALGY-Rash Uncoded 08/30/24 07:05 kumquat Allergy Unknown Uncoded 08/30/24 07:05 lobster Allergy Unknown Uncoded 08/30/24 07:05 malt Allergy ALGY-Bliste Uncoded 08/30/24 07:05 r mesquite Allergy Unknown Uncoded 08/30/24 07:05 millet Allergy ALGY-Rash Uncoded 08/30/24 07:05 mink oil Allergy ALGY-Rash Uncoded 08/30/24 07:05 mola Allergy Unknown Uncoded 08/30/24 07:05 MSG Allergy Unknown Uncoded 08/30/24 07:05 prawn Allergy Unknown Uncoded 08/30/24 07:05 rye Allergy ALGY-Rash Uncoded 08/30/24 07:05 snail Allergy Unknown Uncoded 08/30/24 07:05 sorghum Allergy Unknown Uncoded 08/30/24 07:05 tangello Allergy Unresponsiv Uncoded 08/30/24 07:05 e tangerine Allergy Unknown Uncoded 08/30/24 07:05 [facility] sauce AdvReac Severe ALGY-Swell Uncoded 08/30/24 07:05 Lip/Tongue/Throat PFSH ED 2 PFSH: Medical History (Updated 12/11/24 @ 19:10 by Harsha Calle MD) Osteoarthritis of left knee Statin intolerance Osteoarthritis of right hip severe on imaging; Hx of deep venous thrombosis right leg Chronic venous insufficiency of lower extremity R leg; hx of DVT this leg Disability of walking Aortic stenosis Osteoporosis didn't tolerate oral bisphosphonates; did prolia for 5 yrs; she doesn't want to do any more DEXAs Bradycardia sees cardio [facility] Carotid atherosclerosis bilateral mild on US 04/08 Chronic atrial fibrillation Chest pain Symptomatic bradycardia Anticoagulation adequate with anticoagulant therapy COPD (chronic obstructive pulmonary disease) Pulmonary arterial hypertension Sleep apnea not using CPAP; sleeps in recliner Hypertension CAD (coronary artery disease) seeing cardio in [place] Surgical History Status post laparoscopic cholecystectomy (03/06/21) H/O left knee surgery arthroscopic H/O right knee surgery arthroscopic H/O tubal ligation History of colonoscopy with polypectomy 2016 History of esophagogastroduodenoscopy (EGD) Family History Mother Diabetes CAD (coronary artery disease) Social History Smoking and tobacco/nicotine status: never used tobacco/nicotine Second hand smoke exposure: No Alcohol intake: never Substance/Drug Use: never Lives independently: Yes Household members: none Marital status: / Number of children: 3 Highest education level completed: Some College, No Degree Current occupational status: 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 Do you think of yourself as: Straight/Heterosexual Current gender identity: Female Female Reproductive History: Spontaneous abortions: No Physical Exam 2 Const: COMMON NORMALS: no acute distress, patient oriented x3 and alert G ENERAL APPEARANCE: cooperative HENMT: COMMON NORMALS: normocephalic and atraumatic HEAD & SCALP: n ormocephalic and atraumatic Eye: COMMON NORMALS: Equal, round and reactive pupils present and EOMs intact bilaterally PUPIL: Yes Equal, round and reactive pupils present Neck/C-Spine: COMMON NORMALS: full ROM and supple Chest: COMMONS NORMALS: normal inspection of the chest Resp: COMMON NORMALS: normal respiratory effort AUSCULTATION: wheezes Cardio: COMMON NORMALS: regular rate and regular rhythm RATE: regular rate RHYTHM: regular rhythm GI: COMMON NORMALS: Normal to inspection, nondistended, normoactive bowel sounds present and non-tender : COMMON NORMALS: Yes no CVA tenderness BLADDER/KIDNEY EXAM: Yes no CVA tenderness Back/Pelvis: COMMON NORMALS: no CVA tenderness and thoracic and lumbar spine normal to inspection Extremity: COMMON NORMALS: normal to inspection, full ROM and no pedal edema Neuro: COMMON NORMALS: patient oriented x3 and no focal motor deficits S ENSORIUM/ORIENTATION: Yes alert Psych: COMMON NORMALS: cooperative Skin: COMMON NORMALS: no rashes or lesions noted GENERAL SKIN EXAM: no rashes or lesions noted Course 2 Vital Signs: Vital signs: Vital Signs Temperature 98.2 F 12/11/24 16:51 Pulse Rate 86 12/11/24 18:18 Respiratory Rate 20 H 12/11/24 17:24 Blood Pressure 159/85 12/11/24 18:18 Pulse Oximetry 97 12/11/24 18:18 Oxygen Delivery Me thod Nasal Cannula 12/11/24 18:18 Oxygen Flow Rate 3 12/11/24 18:18 MDM - SOB/Dyspnea Medical Decision Making Patient was given Solu-Medrol and 2 DuoNeb treatments. Patient breathing easier now. She was never desatting on room air but was put on oxygen for comfort. Patient was given Tessalon Perles and a doxycycline. Chest x-ray shows no acute process. Patient lab work unremarkable. No elevation of the white blood cell count. Patient has negative COVID and negative flu. Patient looks good and nontoxic-appearing. Will discharge home and put on steroids, medicine for cough and doxycycline. Lab Data 12/11/24 17:35 12/11/24 17:35 Labs/Radiology: Radiology Impressions Chest X-Ray 12/11/24 17:08 IMPRESSION: No acute cardiopulmonary disease. Laboratory Results WBC 6.28 10^3/uL (3.29-11.43) 12/11/24 17:35 RBC 4.79 10^6/uL (3.85-5.65) 12/11/24 17:35 Hgb 14.30 g/dL (11.27-16.99) 12/11/24 17:35 Hct 44.5 % (36-47) 12/11/24 17:35 MCV 92.9 fl (85-98) 12/11/24 17:35 MCH 29.9 pg (27-33) 12/11/24 17:35 MCHC 32.1 g/dL (30-55) 12/11/24 17:35 RDW 13.5 % (12.1-15.1) 12/11/24 17:35 Plt Count 124 10^3/cmm (157-399) L 12/11/24 17:35 MPV 10.8 fL (7.4-10.4) H 12/11/24 17:35 Neut % (Auto) 72.2 % 12/11/24 17:35 Lymph % (Auto) 13.7 % 12/11/24 17:35 [place] % (Auto) 11.6 % 12/11/24 17:35 Eos % (Auto) 1.4 % 12/11/24 17:35 Baso % (Auto) 0.6 % 12/11/24 17:35 Neut # (Auto) 4.53 10^3/uL (1.8-7.7) 12/11/24 17:35 Lymph # (Auto) 0.9 10^3/uL (0.8-4.8) 12/11/24 17:35 [place] # (Auto) 0.7 10^3/uL (0.2-0.9) 12/11/24 17:35 Eos # (Auto) 0.1 10^3/uL (0.0-0.8) 12/11/24 17:35 Baso # (Auto) 0.0 10^3/uL (0.0-0.1) 12/11/24 17:35 Nucleated RBC % (auto) 0 % 12/11/24 17:35 Nucleated RBCs # 0.0 /100WBC 12/11/24 17:35 Sodium 139 mmol/L (136-145) 12/11/24 17:35 Potassium 3.8 mmol/L (3.5-5.1) 12/11/24 17:35 Chloride 102 mmol/L (98-107) 12/11/24 17:35 Carbon Dioxide 26 mmol/L (22-29) 12/11/24 17:35 Anion Gap 14.8 (5-19) 12/11/24 17:35 BUN 15 mg/dL (8-23) 12/11/24 17:35 Creatinine 0.5 mg/dL (0.5-0.9) 12/11/24 17:35 GFR Calculation Not Reportable 12/11/24 17:35 Glucose 112 mg/dL (65-115) 12/11/24 17:35 Calculated Osmolality 290 mOsm/kg (285-295) 12/11/24 17:35 Calcium 9.5 mg/dL (8.5-10.5) 12/11/24 17:35 Magnesium 1.9 mg/dL (1.7-2.3) 12/11/24 17:35 NT-Pro-B Natriuret Pep 1508 pg/mL (0-450) H 12/11/24 17:35 Coronavirus (PCR) Negative (Negative) 12/11/24 17:40 Influenza A (PCR) Negative (Negative) 12/11/24 17:40 Influenza Type B (PCR) Negative (Negative) 12/11/24 17:40 RSV (PCR) Negative (Negative) 12/11/24 17:40 All radiology interpretation(s) finalized by discharge Discharge Plan Discharge Patient Disposition: Home Clinical Impression: Viral upper respiratory tract infection COPD (chronic obstructive pulmonary disease) Qualifiers: COPD type: emphysema Emphysema type: unspecified Qualified Code(s): J43.9 - Emphysema, unspecified Condition: Stable Prescriptions: New prednisone 20 mg tablet 40 mg PO DAILY 3 Days Qty: 6 0RF doxycycline hyclate 100 mg capsule 100 mg PO BID 10 Days Qty: 20 0RF guaifenesin [Mucinex] 600 mg tablet extended release 12hr 600 mg PO BID 3 Days Qty: 6 0RF No Action cetirizine 10 mg tablet 10 mg PO BID PRN (Reason: allergy symptoms) Qty: 180 3RF hydrocortisone 2.5 % cream 1 applic topical BID PRN (Reason: skin irritation) Qty: 30 2RF isosorbide mononitrate 30 mg tablet extended release 24 hr 30 mg PO DAILY Qty: 90 3RF furosemide 20 mg tablet See Rx Instructions .ROUTE .COMPLEX Qty: 180 1RF Dose Instruction: TAKE 2 TABLETS BY MOUTH EVERY DAY NEEDED FOR EDEMA Rx Instructions: TAKE 2 TABLETS BY MOUTH EVERY DAY NEEDED FOR EDEMA Xarelto 20 mg tablet See Rx Instructions .ROUTE .COMPLEX Qty: 90 3RF Hold Instructions: Resume on 03/14/21. Dose Instruction: TAKE 1 TABLET BY MOUTH EVERY DAY IN THE EVENING Rx Instructions: TAKE 1 TABLET BY MOUTH EVERY DAY IN THE EVENING potassium chloride 10 mEq tablet extended release 20 meq PO DAILY Qty: 180 3RF hydrocodone-acetaminophen 5-325 mg tablet 1 tab PO Q8H PRN (Reason: pain) 7 Days Qty: 20 0RF nitroglycerin 0.4 mg tablet, sublingual 0.4 mg sublingual Q5M PRN (Reason: chest pain) Qty: 25 2RF Rx Instructions: do not exceed 3 doses per episode lisinopril 2.5 mg tablet 2.5 mg PO QAM Qty: 90 3RF ketoconazole 2 % cream See Rx Instructions .ROUTE .COMPLEX Qty: 30 2RF Dose Instruction: APPLY TOPICALLY DAILY Rx Instructions: APPLY TOPICALLY DAILY cyanocobalamin (vitamin B-12) [Vitamin B-12] 1,000 mcg Tablet 1,000 mcg PO QPM calcium carbonate 500 mg calcium (1,250 mg) Tablet 500 mg PO QPM cholecalciferol (vitamin D3) [Vitamin D3] 50 mcg (2,000 unit) Tablet 50 mcg PO QPM Discharge Orders: Discharge ED (Routine); Ordered 12/11/24 Ordered By: Harsha Calle Referrals: Awa Frederick MD [Primary Care Provider] - Discharge Diet: Usual diet Discharge Activity: Increase activity as tolerated Patient Instructions: Upper Respiratory Infection (ED) Coding Level of Care Code ED Band Saw Marker for Isabel Ulloa
[2024-12-11] MEDS: ipratropium-albuterol 3 mL Neb INHALATION ×2 (17:23→19:11)
[2024-12-11] MEDS: methylPREDNISolone sod succ 125 mg/2 mL INJ IV (17:38)
[2024-12-11 17:54] LABS: Basophils % 0.6 %; Eosinophils # 0.1 10^3/uL (0.0-0.8); Eosinophils % 1.4 %; Hematocrit 44.5 % (36-47); Lymphocytes # 0.9 10^3/uL (0.8-4.8); Lymphocytes % 13.7 %; Mean Corpuscular HGB Conc 32.1 g/dL (30-55); Mean Corpuscular Hemoglobin 29.9 pg (27-33); Mean Corpuscular Volume 92.9 fl (85-98); Mean Platelet Volume 10.8 fL (7.4-10.4); Monocytes # 0.7 10^3/uL (0.2-0.9); Monocytes % 11.6 %; Neutrophils # 4.53 10^3/uL (1.8-7.7); Neutrophils % 72.2 %; Nucleated Red Blood Cells % 0 %; Platelet Count 124 10^3/cmm (157-399); Red Blood Count 4.79 10^6/uL (3.85-5.65); Red Cell Distribution Width 13.5 % (12.1-15.1); White Blood Count 6.28 10^3/uL (3.29-11.43)
[2024-12-11 18:18] LABS: Covid PCR NEGATIVE (Negative); Influenza A NEGATIVE (Negative); Influenza B NEGATIVE (Negative); Respiratory Syncytial Virus Ce NEGATIVE (Negative)
[2024-12-11 18:25] LABS: Anion Gap 14.8 (5-19); Blood Urea Nitrogen 15 mg/dL (8-23); Calcium 9.5 mg/dL (8.5-10.5); Carbon Dioxide 26 mmol/L (22-29); Chloride 102 mmol/L (98-107); Creatinine Clr Calc Pharmacy 65.3209; Glucose 112 mg/dL (65-115); Magnesium 1.9 mg/dL (1.7-2.3); NT Pro B Type Natriuretic Pept 1508 pg/mL (0-450); Osmolality Calculated 290 mOsm/kg (285-295); Potassium 3.8 mmol/L (3.5-5.1); Sodium 139 mmol/L (136-145)
[2024-12-11] MEDS: benzonatate 100 mg Capsule PO (18:51)
[2024-12-11] MEDS: benzonatate 100 mg Capsule 200 MG PO (18:51)
[2024-12-11] MEDS: doxycycline 100 mg Tablet PO (20:05)
--- NOTE | 2024-12-11 20:13 | PM.HP ---
Providers/Chief Complaint Admitting Physician: Dr. Hayley MD Primary Care Provider: Awa Frederick MD Chief Complaint: sob History of Present Illness Lelia Mcguire is a 79 yo woman w/ CAD, chronic Afib, Pulmonary artery hypertension, chronic CHF, Asthma, ELBA not on CPAP because it was recalled, hx of R. lower extremity DVT, HTN who presents to the ED on 12/11/2024 w/ complaints 2 whalen of productive cough of yellow sputum. The patient states that she started experiencing the productive cough, then she would experience L. sided chest pain while coughing, and then a headache. The chest pain was non-pleuritic, non-positional. She states that anytime that she gets a chest pain, she gets it at the back of her neck. The patient felt weak, fatigued. The cough progressed to the point that she decided to call EMS. When she tried to get out of her recliner, she slid to the floor and had to crawl to open the door for EMS. 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 The patient endorsed SOB, wheezing, palpitations although she typically has palpitations w/ Afib. Her vital signs were significant for tachycardia of 104, and respiratory rate of 20. She required 3L O2 Her labs showed no leukocytosis, and that showed an unremarkable BMP. Her EKG showed A-fib with PVCs, no ST changes, and a QTc of 410. Her CXR showed no acute cardiopulmonary disease, but the left lung base was suboptimally evaluated due to the overlying dense heart and soft tissue. A CT was then obtained and it showed no abnormalities. Her COVID-19/influenza A&B/RSV PCR swabs were negative. She was given Tessalon Perles, doxycycline 100 mg x 1, Solu-Medrol 125 mg IVP x 1. Review of Systems Const: Reports: change in appetite (poor ), fatigue and malaise; Denies: fever(s) or chills Eyes: Denies: change in vision or blurry vision ENMT: Reports: ear or mastoid pain (L. ear), nasal discharge (allergies) and nasal congestion (chronic allergies); Denies: odynophagia or ear discharge Card: Reports: chest pain, palpitations, edema and swelling of feet/ankles Resp: Reports: dyspnea, productive cough and wheezing GI: Denies: abdominal pain, nausea, vomiting, hematochezia or melena : Denies: difficulty voiding, dysuria, urinary frequency, urinary urgency or hematuria Musc: Denies: joint pain Skin/Breast: Denies: rash or new lesions Neuro: Reports: headache(s) and other (no syncope); Denies: dizziness Psych: Reports: depression (she tried counselling. ); Denies: anxiety, suicidal ideation or homicidal ideation Endo: Denies: cold intolerance or heat intolerance Sarkis/Lymph: Reports: easy bruising (on AC, and hx of prolonged bleeding with procedures) and easy bleeding (on AC, and hx of prolonged bleeding with procedures) Medications/Allergies Home Medications Medication Instructions Recorded Confirmed Last Taken Type cyanocobalamin (vitamin B-12) 1,000 mcg PO QPM 05/30/21 08/30/24 08/21/22 History 1,000 mcg tablet (Vitamin B-12) calcium carbonate 500 mg PO QPM 05/20/22 08/30/24 08/21/22 History cholecalciferol (vitamin D3) 50 50 mcg PO QPM 05/20/22 08/30/24 08/21/22 History mcg (2,000 unit) tablet (Vitamin D3) cetirizine 10 mg tablet 10 mg PO BID PRN allergy symptoms 06/10/23 08/30/24 Unknown Rx #180 tabs isosorbide mononitrate 30 mg 30 mg PO DAILY #90 tabs 11/26/23 08/30/24 Unknown Rx tablet,extended release 24 hr lisinopril 2.5 mg tablet 2.5 mg PO QAM #90 tabs 12/18/23 08/30/24 Unknown Rx furosemide 20 mg tablet See Rx Instructions .Route 01/07/24 08/30/24 Unknown Rx .COMPLEX #180 tabs hydrocodone 5 mg-acetaminophen 325 1 tab PO Q8H PRN pain 7 days #20 01/07/24 08/30/24 Unknown Rx mg tablet tabs potassium chloride 10 mEq 20 meq (2 x 10 mEq) PO DAILY #180 01/07/24 08/30/24 Unknown Rx tablet,extended release tabs rivaroxaban 20 mg tablet (Xarelto) See Rx Instructions .Route 01/07/24 08/30/24 Unknown Rx .COMPLEX #90 tabs hydrocortisone 2.5 % topical cream 1 applic topical BID PRN skin 04/19/24 08/30/24 Unknown Rx irritation #30 grams ketoconazole 2 % topical cream See Rx Instructions .Route 05/20/24 08/30/24 Unknown Rx .COMPLEX #30 grams nitroglycerin 0.4 mg sublingual 0.4 mg sublingual Q5M PRN chest 08/24/24 08/30/24 Unknown Rx tablet pain #25 tabs doxycycline hyclate 100 mg capsule 100 mg PO BID 10 days #20 caps 12/11/24 Unknown Rx guaifenesin 600 mg tablet, 600 mg PO BID 3 days #6 tabs 12/11/24 Unknown Rx extended release 12 hr (Mucinex) prednisone 20 mg tablet 40 mg (2 x 20 mg) PO DAILY 3 days 12/11/24 Unknown Rx #6 tabs Allergies Allergy/AdvReac Type Severity Reaction Status Date / Time iodine Allergy Unknown ALGY-Bliste Verified 08/30/24 07:05 r metoprolol Allergy Unknown Unknown Verified 08/30/24 07:05 alcohol Allergy ALGY-Hives Verified 08/30/24 07:05 alfalfa Allergy ALGY-Rash Verified 08/30/24 07:05 aloe vera Allergy ALGY-Bliste Verified 08/30/24 07:05 r atenolol Allergy ALGY-Swell Verified 08/30/24 07:05 Lip/Tongue/Throat bamboo Allergy ALGY-Rash Verified 08/30/24 07:05 barley Allergy ALGY-Rash Verified 08/30/24 07:05 bran Allergy ALGY-Hives Verified 08/30/24 07:05 Flat Lick And Derivatives Allergy ALGY-Hives Verified 08/30/24 07:05 clams Allergy ALGY-Difficulty Verified 08/30/24 07:05 Swallowing crab Allergy Unknown Verified 08/30/24 07:05 crayfish Allergy Unknown Verified 08/30/24 07:05 diphenhydramine Allergy ADR-Itching Verified 08/30/24 07:05 [From Benadryl] epinephrine Allergy ADR/ALGY-Pa Verified 08/30/24 07:05 lpitations grapefruit Allergy Unknown Verified 08/30/24 07:05 grass pollen Allergy ALGY-Rash Verified 08/30/24 07:05 juniper tar Allergy Unknown Verified 08/30/24 07:05 kiwi Allergy ALGY-Hives Verified 08/30/24 07:05 latex Allergy ALGY-Rash Verified 08/30/24 07:05 lavender (Lavandula Allergy ALGY-Rash Verified 08/30/24 07:05 angustifolia) lemon Allergy ALGY-Rash Verified 08/30/24 07:05 lemon oil Allergy ALGY-Rash Verified 08/30/24 07:05 licorice Allergy Unknown Verified 08/30/24 07:05 [place] Allergy Unknown Verified 08/30/24 07:05 molasses Allergy Unknown Verified 08/30/24 07:05 mold Allergy ALGY-Rash Verified 08/30/24 07:05 mussels Allergy Unknown Verified 08/30/24 07:05 nut - unspecified Allergy ALGY-Hives Verified 08/30/24 07:05 oats Allergy ALGY-Hives Verified 08/30/24 07:05 octopus Allergy Unknown Verified 08/30/24 07:05 orange Allergy ALGY-Rash Verified 08/30/24 07:05 oyster extract Allergy Unresponsiv Verified 08/30/24 07:05 e passion fruit Allergy Unknown Verified 08/30/24 07:05 scallops Allergy Unknown Verified 08/30/24 07:05 shellfish derived Allergy ALGY-Swell Verified 08/30/24 07:05 Lip/Tongue/Throat shrimp Allergy Unknown Verified 08/30/24 07:05 squid Allergy Unknown Verified 08/30/24 07:05 wheat Allergy ALGY-Hives Verified 08/30/24 07:05 shell fish Allergy Severe ALGY-Swell Uncoded 08/30/24 07:05 Lip/Tongue/Throat abolone Allergy Unknown Uncoded 08/30/24 07:05 anchovie Allergy ALGY-Hives Uncoded 08/30/24 07:05 antibacterial soap Allergy Unknown Uncoded 08/30/24 07:05 berries Allergy ALGY-Hives Uncoded 08/30/24 07:05 carob Allergy Unknown Uncoded 08/30/24 07:05 contrast dye Allergy ALGY-Difficulty Uncoded 08/30/24 07:05 Breathing gold Allergy Unknown Uncoded 08/30/24 07:05 hemp oil Allergy ALGY-Rash Uncoded 08/30/24 07:05 kumquat Allergy Unknown Uncoded 08/30/24 07:05 lobster Allergy Unknown Uncoded 08/30/24 07:05 malt Allergy ALGY-Bliste Uncoded 08/30/24 07:05 r mesquite Allergy Unknown Uncoded 08/30/24 07:05 millet Allergy ALGY-Rash Uncoded 08/30/24 07:05 mink oil Allergy ALGY-Rash Uncoded 08/30/24 07:05 mola Allergy Unknown Uncoded 08/30/24 07:05 MSG Allergy Unknown Uncoded 08/30/24 07:05 prawn Allergy Unknown Uncoded 08/30/24 07:05 rye Allergy ALGY-Rash Uncoded 08/30/24 07:05 snail Allergy Unknown Uncoded 08/30/24 07:05 sorghum Allergy Unknown Uncoded 08/30/24 07:05 tangello Allergy Unresponsiv Uncoded 08/30/24 07:05 e tangerine Allergy Unknown Uncoded 08/30/24 07:05 [facility] sauce AdvReac Severe ALGY-Swell Uncoded 08/30/24 07:05 Lip/Tongue/Throat PFSH Acute PFSH: Medical History (Updated 12/12/24 @ 04:15 by Cally Hardy MD) Asthma Osteoarthritis of left knee Statin intolerance Osteoarthritis of right hip severe on imaging; Hx of deep venous thrombosis right leg Chronic venous insufficiency of lower extremity R leg; hx of DVT this leg Disability of walking Aortic stenosis Osteoporosis didn't tolerate oral bisphosphonates; did prolia for 5 yrs; she doesn't want to do any more DEXAs Bradycardia sees cardio [place] Carotid atherosclerosis bilateral mild on US 04/08 Chronic atrial fibrillation Chest pain Symptomatic bradycardia Anticoagulation adequate with anticoagulant therapy COPD (chronic obstructive pulmonary disease) Pulmonary arterial hypertension Sleep apnea not using CPAP; sleeps in recliner Hypertension CAD (coronary artery disease) seeing cardio in [place] Surgical History Status post laparoscopic cholecystectomy (03/06/21) H/O left knee surgery arthroscopic H/O right knee surgery arthroscopic H/O tubal ligation History of colonoscopy with polypectomy 2016 History of esophagogastroduodenoscopy (EGD) Family History Mother Diabetes CAD (coronary artery disease) Social History Smoking and tobacco/nicotine status: never used tobacco/nicotine Second hand smoke exposure: No Alcohol intake: never Substance/Drug Use: never Lives independently: Yes Household members: none Marital status: / Number of children: 3 Highest education level completed: Some College, No Degree Current occupational status: 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 Do you think of yourself as: Straight/Heterosexual Current gender identity: Female Female Reproductive History: Spontaneous abortions: No Vitals/I&O/Wt Last Vital Signs Temp 98.2 F 12/11/24 16:51 Pulse 98 12/11/24 20:06 Resp 20 H 12/11/24 19:12 BP 141/59 12/11/24 20:06 Pulse Ox 95 12/11/24 20:06 O2 Del Method Room Air 12/11/24 20:06 O2 Flow Rate 2 12/11/24 20:06 Weight last 48 hrs Weight 92.986 kg Physical Exam Const: GENERAL APPEARANCE: cooperative and comfortable ORIENTATION/CONSCIOUSNESS: Yes awake, Yes oriented to person, Yes oriented to place and Yes oriented to time HENMT: HEAD & SCALP: normocephalic and atraumatic NOSE: Normal external nose present EXTERNAL EAR: Yes external ears normal MOUTH: Normal oral and palatal mucosa present Eye: OTHER: PERRL, EOMI, normal conjunctiva bilaterally. Neck/C-Spine: GENERAL: Yes normal visual inspection and Yes trachea midline THYROID: Thyroid normal CAROTIDS: No bruit CERVICAL SPINE: Yes cervical ROM normal Lymph: LYMPHATIC: no lymphadenopathy noted Resp: OTHER: Patient's inspiratory breath sounds are clear, but she has loud expiratory wheezes bilaterally in all lung day. Cardio: OTHER: Irregular rate and rhythm. Rate controlled. 3/6 systolic murmurs GI: OTHER: BS+, NT, ND, no guarding, no rigidity, no rebound tenderness, no hepatosplenomegaly. Extremity: NARRATIVE EXTREMITY EXAM: b/l swelling of the lower extremities. Neuro: CRANIAL NERVES: Yes CN normal except as noted SPEECH: speech abnormal SENSORY EXAM: No sensory level loss detected MOTOR EXAM: 5/5 motor strength present throughout and Normal motor muscle tone present throughout Psych: APPEARANCE: Yes grossly normal ATTITUDE: Yes calm and Yes engaged ACTIVITY/MOTOR BEHAVIOR: Yes appropriate eye contact SPEECH: Yes normal speech MOOD & AFFECT: Yes euthymic mood THOUGHT PROCESS: Normal thought process present THOUGHT CONTENT: Yes Normal thought content present ATTENTION/CONCENTRATION: Yes attention grossly intact Skin: GENERAL SKIN EXAM: no rashes or lesions noted Data 12/11/24 17:35 12/11/24 17:35 A&P Assessment and plan (1) Asthma exacerbation: Plan Lelia Mcguire is a 79 yo woman w/ CAD, chronic Afib,chronic HFpEF, Asthma, pulm HTN, ELBA not on CPAP because it was recalled, HTN who presents to the ED on 12/11/2024 w/ complaints 2 day of productive cough of yellow sputum. #Acute hypoxic respiratory failure: She normally does not require O2 at home. Currently on 3L, with witnessed O2 desaturations while speaking during her HPI interview. Will continue to monitor. #Asthma exacerbation: Notes document COPD, but per Dr. Sheridan's note in 04/2020, she has Asthma, Th2 phenotype. Patient has not seen Pulmonology since Dr. Sheridan left. - F/u BCx, sputum cx. - Continue Ceftriaxone, Doxycycline, duonebs, PPI, Solumedrol #chronic Afib: Continue home emmeds #HTN: #CAD #pulm HTN - Resume home meds as appropriate #ELBA not on CPAP because it was recalled. #hx of R. lower extremity DVT -I do not see any records of this. #Hx of prolonged bleeding with procedures: she tells of a hx of bleeding from 9 to 12hrs after dental procedures. She states that her INR at a time was 8. This was back in 1989, when she lived in [facility]. She may need to get referred to Hematology for further evaluation. DVTppx: Lovenox GI ppx: PPI Attestations Medical Necessity Statement*: Patient needs to be hospitalized for greater than 2 midnights for her acute hypoxic respiratory failure and acute asthma exacerbation. Time Spent in Patient Care: >70 minutes was spent on chart review, patient interview/exam, lab/image review, plan formulation and coordination of care. Coding Level of Care Code 47458 Diagnoses Asthma exacerbation J45.901
[2024-12-11] MEDS: pantoprazole DR 40 mg Tablet PO (20:49)
[2024-12-11 20:53] LABS: INR 1.02 (0.8-1.2)
[2024-12-11 20:54] LABS: Partial Thromboplastin Time 31.4 SECONDS (23.9-36.7)
[2024-12-11] MEDS: oxyCODONE-APAP 5-325 mg Tablet 2 TAB PO (22:07)
--- NOTE | 2024-12-11 22:39 | CTR_ITS ---
PROCEDURE INFORMATION: Exam: CT Chest Without Contrast; Diagnostic Exam date and time: 12/11/2024 10:56 PM Age: 79 years old Clinical indication: Shortness of breath; Patient HX: SOB with elevated bnp. ; Additional info: Shortness of breath, left lung base suboptimal on cxr TECHNIQUE: Imaging protocol: Diagnostic computed tomography of the chest without contrast. Radiation optimization: All CT scans at this facility use at least one of these dose optimization techniques: automated exposure control; mA and/or kV adjustment per patient size (includes targeted exams where dose is matched to clinical indication); or iterative reconstruction. COMPARISON: CR (CHEST, ) 12/11/2024 5:16 PM RADIATION DOSE METRICS: Total DLP (mGy-cm): 485.45 FINDINGS: Lungs: No pulmonary consolidation. No pulmonary mass or suspicious pulmonary nodule. Pleural spaces: No pleural effusion or pneumothorax. Heart: Moderate to marked cardiomegaly. Coronary arteries: [id number] coronary artery calcification. Lymph nodes: No enlarged lymph nodes are identified. Vasculature: Ectasia of the ascending thoracic aorta measuring up to 4.3 cm. Atherosclerotic calcifications are present. Descending thoracic aorta is tortuous. Bones/joints: No acute osseous abnormalities are seen. Soft tissues: The soft tissues are within normal limits. CT/CT chest wo con [id number] IMPRESSION: 1. No acute cardiopulmonary disease. 2. Moderate to marked cardiomegaly. 3. Ectasia of the ascending thoracic aorta measuring up to 4.3 cm.
[2024-12-11] MEDS: cefTRIAXone 1,000 mg SDV 1000 MG IVP (23:11)
[2024-12-12] VITALS (14 sets, daily range): BP systolic 112–166; BP diastolic 57–79; PULSE 57–107; RESP 16–20; TEMP 36.4–36.9; O2SAT 92–96
[2024-12-12] MEDS: ipratropium-albuterol 3 mL Neb INHALATION ×4 (02:50→21:28)
[2024-12-12 06:35] LABS: Basophils % 0.3 %; Hematocrit 42.4 % (36-47); Lymphocytes # 0.3 10^3/uL (0.8-4.8); Mean Corpuscular HGB Conc 31.8 g/dL (30-55); Mean Corpuscular Hemoglobin 29.7 pg (27-33); Mean Corpuscular Volume 93.4 fl (85-98); Mean Platelet Volume 10.9 fL (7.4-10.4); Monocytes # 0.2 10^3/uL (0.2-0.9); Monocytes % 5.7 %; Neutrophils # 2.98 10^3/uL (1.8-7.7); Neutrophils % 85.1 %; Nucleated Red Blood Cells % 0 %; Platelet Count 112 10^3/cmm (157-399); Red Blood Count 4.54 10^6/uL (3.85-5.65); Red Cell Distribution Width 13.4 % (12.1-15.1)
[2024-12-12 06:56] LABS: Alanine Aminotransferase 24 U/L (0-33); Alkaline Phosphatase 74 U/L (35-105); Anion Gap 16.8 (5-19); Aspartate Amino Transferase 33 U/L (0-32); Blood Urea Nitrogen 13 mg/dL (8-23); Calcium 8.9 mg/dL (8.5-10.5); Carbon Dioxide 24 mmol/L (22-29); Chloride 99 mmol/L (98-107); Creatinine Clr Calc Pharmacy 65.3209; Globulin 1.8 g/dL (1.3-4.6); Glucose 184 mg/dL (65-115); Osmolality Calculated 287 mOsm/kg (285-295); Phosphorus 3.4 mg/dL (2.5-4.5); Potassium 3.8 mmol/L (3.5-5.1); Sodium 136 mmol/L (136-145); Total Bilirubin 0.7 mg/dL (0.15-1.2); Total Protein 5.8 g/dL (6.6-8.7)
[2024-12-12] MEDS: cefTRIAXone 1,000 mg SDV 1000 MG IVP ×2 (06:57→22:31)
[2024-12-12] MEDS: pantoprazole 40 mg SDV IVP (07:13)
[2024-12-12 07:46] LABS: INR 1.02 (0.8-1.2)
[2024-12-12] MEDS: methylPREDNISolone sod succ 125 mg/2 mL INJ 60 MG IVP (08:51)
[2024-12-12] MEDS: FUROsemide 40 mg Tablet PO (08:51)
[2024-12-12] MEDS: sennosides 8.6 mg Tablet 17.2 MG PO (08:51)
[2024-12-12] MEDS: enoxaparin 100 mg/mL Syringe 90 MG SUBCUT ×2 (08:51→22:31)
--- NOTE | 2024-12-12 14:02 | P.PN_ITS ---
Subjective 2 Subjective: Seen this morning. Sitting up in bed. Eating chicken and fries. He is not on any oxygen at home however now is on 2 L saturating 90%. Vitals/I&O/Wt Last Vital Signs Temp 98.2 F 12/11/24 16:51 Pulse 77 12/12/24 13:29 Resp 16 12/12/24 13:29 BP 112/71 12/12/24 13:25 Pulse Ox 92 12/12/24 13:29 O2 Del Method Nasal Cannula 12/12/24 13:29 O2 Flow Rate 4 12/12/24 13:29 12/11/24 12/12/24 12/12/24 22:59 06:59 14:59 Output Total 150 / 150 Balance -150 / -150 Weight last 48 hrs Weight 92.986 kg Physical Exam 2 Const: GENERAL APPEARANCE: cooperative and comfortable O RIENTATION/CONSCIOUSNESS: Yes awake, Yes oriented to person, Yes oriented to place and Yes oriented to time HENMT: COMMON NORMALS: normocephalic, atraumatic, external ears normal and Normal external nose present HEAD & SCALP: normocephalic and atraumatic N OSE: Normal external nose present EXTERNAL EAR: Yes external ears normal M OUTH: Normal oral and palatal mucosa present Eye: OTHER: PERRL, EOMI, normal conjunctiva bilaterally. Neck/C-Spine: COMMON NORMALS: Thyroid normal GENERAL: Yes normal visual inspection and Yes trachea midline THYROID: Thyroid normal CAROTIDS: No bruit CERVICAL SPINE: Yes cervical ROM normal Lymph: LYMPHATIC: no lymphadenopathy noted Resp: OTHER: Patient's inspiratory breath sounds are clear, but she has loud expiratory wheezes bilaterally in all lung day. Cardio: OTHER: Irregular rate and rhythm. Rate controlled. 3/6 systolic murmurs GI: OTHER: BS+, NT, ND, no guarding, no rigidity, no rebound tenderness, no hepatosplenomegaly. Extremity: NARRATIVE EXTREMITY EXAM: b/l swelling of the lower extremities. Neuro: SENSORIUM/ORIENTATION: Yes oriented to person, Yes oriented to place and Yes oriented to time CRANIAL NERVES: Yes CN normal except as noted S PEECH: speech abnormal SENSORY EXAM: No sensory level loss detected MOTOR EXAM: 5/5 motor strength present throughout and Normal motor muscle tone present throughout Psych: COMMON NORMALS: Normal thought process present and speech normal A PPEARANCE: Yes grossly normal ATTITUDE: Yes calm and Yes engaged A CTIVITY/MOTOR BEHAVIOR: Yes appropriate eye contact SPEECH: Yes normal speech MOOD & AFFECT: Yes euthymic mood THOUGHT PROCESS: Normal thought process present THOUGHT CONTENT: Yes Normal thought content present A TTENTION/CONCENTRATION: Yes attention grossly intact Skin: COMMON NORMALS: no rashes or lesions noted GENERAL SKIN EXAM: no rashes or lesions noted Data 12/12/24 06:03 12/12/24 06:03 Micro: Microbiology 12/11/24 22:57 Blood Culture - Preliminary Blood SPECIMEN COLLECTED 12/11/24 00:00 Blood Culture - Preliminary Blood SPECIMEN COLLECTED A&P Assessment and plan (1) Asthma exacerbation: Plan Lelia Mcguire is a 79 yo woman w/ CAD, chronic Afib,chronic HFpEF, Asthma, pulm HTN, ELBA not on CPAP because it was recalled, HTN who presents to the ED on 12/11/2024 w/ complaints 2 day of productive cough of yellow sputum. #Acute hypoxic respiratory failure: She normally does not require O2 at home. Currently on 3L, with witnessed O2 desaturations while speaking during her HPI interview. Will continue to monitor. #Asthma exacerbation: Notes document COPD, but per Dr. Sheridan's note in 04/2020, she has Asthma, Th2 phenotype. Patient has not seen Pulmonology since Dr. Sheridan left. - F/u BCx, sputum cx. - Continue Ceftriaxone, Doxycycline, duonebs, PPI, Solumedrol #chronic Afib: Continue home emmeds #HTN: #CAD #pulm HTN - Resume home meds as appropriate #ELBA not on CPAP because it was recalled. #hx of R. lower extremity DVT -I do not see any records of this. #Hx of prolonged bleeding with procedures: she tells of a hx of bleeding from 9 to 12hrs after dental procedures. She states that her INR at a time was 8. This was back in 1989, when she lived in [facility]. She may need to get referred to Hematology for further evaluation. DVTppx: Lovenox GI ppx: PPI 12/12/2024 -Continue management as per H&P. ? Patient does have mild to moderate mitral regurgitation on echo from March 2024. ? Bilateral lower extremities edema present. I will order Lasix 40 IV x 1 as a trial. ? Repeat echo. Suspect mitral regurgitation worsening. Attestations 2 Medical Necessity Statement*: Requires continued hospitalization for management of COPD exacerbation Diagnoses Asthma exacerbation J45.901
--- NOTE | 2024-12-12 14:53 | USCV_ITS ---
Lelia Mcguire Age: 79 Gender: F : 1945 Exam Date: 12/12/2024 18:40 Ordering Phys: Rosa Tristan MD Technologist: [place] [facility] [place]: mitral regurg mitral regurg history of Afib, , COPD, HTN, cough, SOB BP: 138 / 79 HR: 74 Rhythm: Sinus Technical Quality: MEASUREMENTS (Male / Female) Normal Values 2D ECHO LV Diastolic Diameter PLAX 3.6 cm 4.2 - 5.9 / 3.9 - 5.3 cm IVS Diastolic Thickness 1.5 cm 0.6 - 1.0 / 0.6 - 0.9 cm IVS Systolic Thickness 2.0 cm LVPW Diastolic Thickness 2.0 cm 0.6 - 1.0 / 0.6 - 0.9 cm LVPW Systolic Thickness 1.9 cm LVOT Diameter 1.8 cm LV Ejection Fraction 2D Teich 69.5 % LV Ejection Fraction MOD 4C 76.9 % LV Ejection Fraction MOD 2C 65.2 % LV Ejection Fraction 2C AL 66.4 % LA Diameter 4.7 cm Aorta at Sinotubular Diameter 2.5 cm IVC Diameter 2.4 cm M-MODE LA Ao Ratio MM 2.3 AV Cusp Separation MM 1.7 cm DOPPLER AV Peak Velocity 293.0 cm/s LVOT Peak Velocity 119.0 cm/s AV Area Cont Eq vti 1.4 cm squared AV Area Cont Eq pk 1.1 cm squared MV Peak Velocity 199.0 cm/s MV Area PHT 3.8 cm squared Mitral E to A Ratio 266.0 TV Peak Velocity 260.7 cm/s TR Peak Velocity 290.0 cm/s TR Peak Gradient 33.6 mmHg TV Peak E Velocity 76.0 cm/s PV Peak Velocity 133.0 cm/s FINDINGS Left Ventricle Normal left ventricular size, systolic function and wall thickness, with no regional wall motion abnormalities. Left ventricular ejection fraction is estimated at 60 %. Grade II/IV diastolic dysfunction, moderately elevated filling pressures. Right Ventricle The right ventricle is normal in size and function. Right Atrium Moderately increased right atrial size. Left Atrium Moderately increased left atrial size. Mitral Valve Moderately thickened mitral valve. Mild mitral annular calcification. No mitral valve stenosis. Moderate mitral valve regurgitation. Aortic Valve Severe aortic valve calcification. Mild aortic valve stenosis, mean gradient 17.8 mmHg, PATRICK 1.4 cm squared. Mild aortic valve regurgitation. Tricuspid Valve Thickened tricuspid valve. Mild tricuspid valve regurgitation. Pulmonic Valve Structurally normal pulmonic valve without significant stenosis. There is no pulmonic regurgitation. Pericardium Normal pericardium without effusion. Aorta Normal ascending aorta dimension. IVC The inferior vena cava appears normal. CONCLUSIONS Normal left ventricular size, systolic function and wall thickness, with no regional wall motion abnormalities. Left ventricular ejection fraction is estimated at 60 %. Grade II/IV diastolic dysfunction, moderately elevated filling pressures. Moderately increased left atrial size. Moderately thickened mitral valve. Mild mitral annular calcification. No mitral valve stenosis. Moderate mitral valve regurgitation. Severe aortic valve calcification. Mild aortic valve stenosis, mean gradient 17.8 mmHg, PATRICK 1.4 cm squared. Mild aortic valve regurgitation. There is no pericardial effusion. Right atrial pressure is around 10 mm of mercury. Michelle Morton MD (Electronically Signed) Final Date: 14 December 2024 14:50 S
[2024-12-12] MEDS: FUROsemide 10 mg/mL SDV 4mL 40 MG IVP (15:26)
[2024-12-12 22:43] LABS: Anion Gap 15.7 (5-19); Blood Urea Nitrogen 21 mg/dL (8-23); Calcium 9.1 mg/dL (8.5-10.5); Carbon Dioxide 28 mmol/L (22-29); Chloride 96 mmol/L (98-107); Creatinine Clr Calc Pharmacy 65.6532; Glucose 134 mg/dL (65-115); Osmolality Calculated 287 mOsm/kg (285-295); Potassium 3.7 mmol/L (3.5-5.1); Sodium 136 mmol/L (136-145)
[2024-12-13] VITALS (12 sets, daily range): BP systolic 108–133; BP diastolic 67–76; PULSE 57–93; RESP 16–19; TEMP 36.6–37.4; O2SAT 92–98
[2024-12-13] MEDS: ipratropium-albuterol 3 mL Neb INHALATION ×4 (03:06→19:36)
[2024-12-13 07:15] LABS: Basophils % 0.1 %; Eosinophils % 0.1 %; Lymphocytes # 0.7 10^3/uL (0.8-4.8); Lymphocytes % 9.2 %; Mean Corpuscular HGB Conc 32.4 g/dL (30-55); Mean Corpuscular Volume 92.5 fl (85-98); Mean Platelet Volume 10.4 fL (7.4-10.4); Monocytes # 1.1 10^3/uL (0.2-0.9); Monocytes % 13.6 %; Neutrophils % 76.5 %; Nucleated Red Blood Cells % 0 %; Platelet Count 133 10^3/cmm (157-399); Red Blood Count 4.54 10^6/uL (3.85-5.65); Red Cell Distribution Width 13.7 % (12.1-15.1); White Blood Count 7.97 10^3/uL (3.29-11.43)
[2024-12-13 07:32] LABS: Alanine Aminotransferase 22 U/L (0-33); Albumin Level 3.6 g/dL (3.5-5.2); Alkaline Phosphatase 65 U/L (35-105); Anion Gap 12.7 (5-19); Aspartate Amino Transferase 35 U/L (0-32); Blood Urea Nitrogen 22 mg/dL (8-23); Calcium 8.8 mg/dL (8.5-10.5); Carbon Dioxide 31 mmol/L (22-29); Chloride 99 mmol/L (98-107); Creatinine Clr Calc Pharmacy 65.8025; Globulin 2.2 g/dL (1.3-4.6); Glucose 102 mg/dL (65-115); Magnesium 2.1 mg/dL (1.7-2.3); Osmolality Calculated 292 mOsm/kg (285-295); Phosphorus 3.4 mg/dL (2.5-4.5); Potassium 3.7 mmol/L (3.5-5.1); Sodium 139 mmol/L (136-145); Total Bilirubin 0.5 mg/dL (0.15-1.2); Total Protein 5.8 g/dL (6.6-8.7)
[2024-12-13] MEDS: enoxaparin 100 mg/mL Syringe 90 MG SUBCUT ×2 (08:17→20:41)
[2024-12-13] MEDS: methylPREDNISolone sod succ 125 mg/2 mL INJ 60 MG IVP (08:17)
[2024-12-13] MEDS: pantoprazole 40 mg SDV IVP (08:18)
[2024-12-13] MEDS: sennosides 8.6 mg Tablet 17.2 MG PO (08:18)
--- NOTE | 2024-12-13 09:12 | P.PN_ITS ---
Documented by User: Zuhair Bush 12/13/24 12:04 Subjective 2 Subjective: Patient seen this morning. Reports congestion overnight and this morning still but less than yesterday. Sputum is now more clear as opposed to previous yellow sputum. She reports intermittent chest pain but no chest pain overnight that woke her from sleep. She states that on exertion she notices her O2 dropping into the 80s. She is saturating at 96% on 2L this morning. Denies fevers, chills, lightheadedness, N/V/D. Vitals/I&O/Wt Last Vital Signs Temp 98.0 F 12/13/24 07:25 Pulse 66 12/13/24 07:25 Resp 17 12/13/24 07:25 BP 123/73 12/13/24 07:25 Pulse Ox 96 12/13/24 07:25 O2 Del Method Nasal Cannula 12/13/24 07:25 O2 Flow Rate 3 12/13/24 04:00 12/12/24 12/13/24 12/13/24 22:59 06:59 14:59 Intake Total 480 / 480 240 / 720 Output Total 1200 / 1200 400 / 1600 Balance -720 / -720 -160 / -880 Weight last 48 hrs Weight 94.302 kg Weight 94.166 kg Weight 93.894 kg Weight 92.986 kg Physical Exam 2 Resp: AUSCULTATION: wheezes Cardio: RHYTHM: abnormal rhythm HEART SOUNDS: Murmur heart sound present Extremity: NARRATIVE EXTREMITY EXAM: b/l edema in lower extremities Data 12/13/24 06:55 12/13/24 06:55 Micro: Microbiology 12/11/24 22:57 Blood Culture - Preliminary Blood NEGATIVE TO DATE 12/11/24 00:00 Blood Culture - Preliminary Blood NEGATIVE TO DATE A&P Assessment and plan (1) Hypertension: Qualifiers: Hypertension type: primary hypertension Qualified Code(s): I10 - Essential (primary) hypertension (2) CAD (coronary artery disease): Qualifiers: Coronary Disease-Associated Artery/Lesion type: [place] artery [place] vs. transplanted heart: [place] heart Associated angina: without angina Qualified Code(s): I25.10 - Atherosclerotic heart disease of [place] coronary artery without angina pectoris (3) Aortic stenosis: Qualifiers: Cardiac valve disease etiology: etiology unspecified Qualified Code(s): I35.0 - Nonrheumatic aortic (valve) stenosis (4) Atrial fibrillation: Qualifiers: Atrial fibrillation type: longstanding persistent Qualified Code(s): I 48.11 - Longstanding persistent atrial fibrillation (5) Asthma exacerbation: (6) COPD (chronic obstructive pulmonary disease): Qualifiers: COPD type: emphysema Emphysema type: unspecified Qualified Code(s): J 43.9 - Emphysema, unspecified (7) Sleep apnea: Qualifiers: Sleep apnea type: obstructive Qualified Code(s): G47.33 - Obstructive sleep apnea (adult) (pediatric) Plan Lelia Mcguire is a 79 yo woman w/ CAD, chronic Afib,chronic HFpEF, Asthma, pulm HTN, ELBA not on CPAP because it was recalled, HTN who presents to the ED on 12/11/2024 w/ complaints 2 day of productive cough of yellow sputum. Acute hypoxic respiratory failure: She normally does not require O2 at home. Currently on 3L, with witnessed O2 desaturations while speaking during her HPI interview. Will continue to monitor. Asthma exacerbation: Notes document COPD, but per Dr. Sheridan's note in 04/2020, she has Asthma, Th2 phenotype. Patient has not seen Pulmonology since Dr. Sheridan left. - F/u BCx, sputum cx. - BCx negative to date. - Continue Ceftriaxone, Doxycycline, duonebs, PPI, Solumedrol Chronic AFib: -Continue home meds HTN CAD pulm HTN - Resume home meds as appropriate - bilateral lower extremity edema present - trial on Lasix 40 IV x 1 (12/12) - started Lasix 40mg PO daily ELBA - not on CPAP because it was recalled. hx of R. lower extremity DVT -I do not see any records of this. Hx of prolonged bleeding with procedures: she tells of a hx of bleeding from 9 to 12hrs after dental procedures. She states that her INR at a time was 8. This was back in 1989, when she lived in [facility]. She may need to get referred to Hematology for further evaluation. DVTppx: Lovenox GI ppx: PPI 12/12/2024 -Continue management as per H&P. ? Patient does have mild to moderate mitral regurgitation on echo from March 2024. ? Bilateral lower extremities edema present. I will order Lasix 40 IV x 1 as a trial. ? Repeat echo. Suspect mitral regurgitation worsening. Coding Level of Care Code 01465 Diagnoses Primary hypertension I10 Hypertension type: primary hypertension Coronary artery disease involving [place] coronary artery of [place] heart without angina pectoris I25.10 Coronary Disease-Associated Artery/Lesion type: [place] artery [place] vs. transplanted heart: [place] heart Associated angina: without angina Aortic valve stenosis, etiology of cardiac valve disease unspecified I35.0 Cardiac valve disease etiology: etiology unspecified Longstanding persistent atrial fibrillation I48.11 Atrial fibrillation type: longstanding persistent Asthma exacerbation J45.901 Pulmonary emphysema, unspecified emphysema type J43.9 COPD type: emphysema Emphysema type: unspecified Obstructive sleep apnea syndrome G47.33 Sleep apnea type: obstructive Documented by User: Rosa Tristan MD 12/13/24 13:05 Subjective 2 Subjective: Patient seen this morning. Reports congestion overnight and this morning still but less than yesterday. Sputum is now more clear as opposed to previous yellow sputum. She states that on exertion she notices her O2 dropping into the 80s. She is saturating at 96% on 2L this morning. Denies fevers, chills, lightheadedness, N/V/D. Physical Exam 2 Const: GENERAL APPEARANCE: cooperative and comfortable O RIENTATION/CONSCIOUSNESS: Yes awake, Yes oriented to person, Yes oriented to place and Yes oriented to time HENMT: COMMON NORMALS: normocephalic, atraumatic, external ears normal and Normal external nose present HEAD & SCALP: normocephalic and atraumatic N OSE: Normal external nose present EXTERNAL EAR: Yes external ears normal M OUTH: Normal oral and palatal mucosa present Eye: OTHER: PERRL, EOMI, normal conjunctiva bilaterally. Neck/C-Spine: COMMON NORMALS: Thyroid normal GENERAL: Yes normal visual inspection and Yes trachea midline THYROID: Thyroid normal CAROTIDS: No bruit CERVICAL SPINE: Yes cervical ROM normal Lymph: LYMPHATIC: no lymphadenopathy noted Resp: OTHER: Patient's inspiratory breath sounds are clear, but she has loud expiratory wheezes bilaterally in all lung day. Cardio: OTHER: Irregular rate and rhythm. Rate controlled. 3/6 systolic murmurs GI: OTHER: BS+, NT, ND, no guarding, no rigidity, no rebound tenderness, no hepatosplenomegaly. Neuro: SENSORIUM/ORIENTATION: Yes oriented to person, Yes oriented to place and Yes oriented to time CRANIAL NERVES: Yes CN normal except as noted S PEECH: speech abnormal SENSORY EXAM: No sensory level loss detected MOTOR EXAM: 5/5 motor strength present throughout and Normal motor muscle tone present throughout Psych: COMMON NORMALS: Normal thought process present and speech normal A PPEARANCE: Yes grossly normal ATTITUDE: Yes calm and Yes engaged A CTIVITY/MOTOR BEHAVIOR: Yes appropriate eye contact SPEECH: Yes normal speech MOOD & AFFECT: Yes euthymic mood THOUGHT PROCESS: Normal thought process present THOUGHT CONTENT: Yes Normal thought content present A TTENTION/CONCENTRATION: Yes attention grossly intact Skin: COMMON NORMALS: no rashes or lesions noted GENERAL SKIN EXAM: no rashes or lesions noted Data 12/13/24 06:55 12/13/24 06:55 A&P Assessment and plan (1) Hypertension: Qualifiers: Hypertension type: primary hypertension Qualified Code(s): I10 - Essential (primary) hypertension (2) CAD (coronary artery disease): Qualifiers: Coronary Disease-Associated Artery/Lesion type: [place] artery [place] vs. transplanted heart: [place] heart Associated angina: without angina Qualified Code(s): I25.10 - Atherosclerotic heart disease of [place] coronary artery without angina pectoris (3) Aortic stenosis: Qualifiers: Cardiac valve disease etiology: etiology unspecified Qualified Code(s): I35.0 - Nonrheumatic aortic (valve) stenosis (4) Atrial fibrillation: Qualifiers: Atrial fibrillation type: longstanding persistent Qualified Code(s): I 48.11 - Longstanding persistent atrial fibrillation (5) Asthma exacerbation: (6) COPD (chronic obstructive pulmonary disease): Qualifiers: COPD type: emphysema Emphysema type: unspecified Qualified Code(s): J 43.9 - Emphysema, unspecified (7) Sleep apnea: Qualifiers: Sleep apnea type: obstructive Qualified Code(s): G47.33 - Obstructive sleep apnea (adult) (pediatric) Plan Lelia Mcguire is a 79 yo woman w/ CAD, chronic Afib,chronic HFpEF, Asthma, pulm HTN, ELBA not on CPAP because it was recalled, HTN who presents to the ED on 12/11/2024 w/ complaints 2 day of productive cough of yellow sputum. Acute hypoxic respiratory failure: She normally does not require O2 at home. Currently on 3L, with witnessed O2 desaturations while speaking during her HPI interview. Will continue to monitor. Asthma exacerbation: Notes document COPD, but per Dr. Sheridan's note in 04/2020, she has Asthma, Th2 phenotype. Patient has not seen Pulmonology since Dr. Sheridan left. - F/u BCx, sputum cx. - BCx negative to date. - Continue Ceftriaxone, Doxycycline, duonebs, PPI, Solumedrol Chronic AFib: -Continue home meds HTN CAD pulm HTN - Resume home meds as appropriate - bilateral lower extremity edema present - trial on Lasix 40 IV x 1 (12/12) - started Lasix 40mg PO daily ELBA - not on CPAP because it was recalled. hx of R. lower extremity DVT -I do not see any records of this. Hx of prolonged bleeding with procedures: she tells of a hx of bleeding from 9 to 12hrs after dental procedures. She states that her INR at a time was 8. This was back in 1989, when she lived in [facility]. She may need to get referred to Hematology for further evaluation. DVTppx: Lovenox GI ppx: PPI 12/12/2024 -Continue management as per H&P. ? Patient does have mild to moderate mitral regurgitation on echo from March 2024. ? Bilateral lower extremities edema present. I will order Lasix 40 IV x 1 as a trial. ? Repeat echo. Suspect mitral regurgitation worsening. 12/13/2024 - echo pending feeling slightly better significant wheezing still present continue steroids, ceftriaxone azithromycin - Attestations 2 Medical Necessity Statement*: Requires continued hospitalization for management of COPD exacerbation Diagnoses Primary hypertension I10 Hypertension type: primary hypertension Coronary artery disease involving [place] coronary artery of [place] heart without angina pectoris I25.10 Coronary Disease-Associated Artery/Lesion type: [place] artery [place] vs. transplanted heart: [place] heart Associated angina: without angina Aortic valve stenosis, etiology of cardiac valve disease unspecified I35.0 Cardiac valve disease etiology: etiology unspecified Longstanding persistent atrial fibrillation I48.11 Atrial fibrillation type: longstanding persistent Asthma exacerbation J45.901 Pulmonary emphysema, unspecified emphysema type J43.9 COPD type: emphysema Emphysema type: unspecified Obstructive sleep apnea syndrome G47.33 Sleep apnea type: obstructive
--- NOTE | 2024-12-13 10:09 | P.HP_ITS ---
Providers/Chief Complaint 2 Admitting Physician: Cally Hardy MD Primary Care Provider: Awa Frederick MD Chief Complaint: sob History of Present Illness Lelia Mcguire is a 79 year old female Review of Systems 2 Const: Denies: fever(s), chills, body aches, change in appetite, change in weight, fatigue, malaise, night sweats or diaphoresis Eyes: Denies: change in vision, blurry vision or other ENMT: Denies: odynophagia, hoarseness, swelling of lips/tongue, ear or mastoid pain, ear discharge, nasal discharge, nasal congestion or post nasal drip Card: Denies: chest pain, palpitations, edema, swelling of feet/ankles, lightheadedness, syncope, pre-syncope, dyspnea on exertion, orthopnea or leg pain with exertion Resp: Denies: dyspnea, productive cough, non-productive cough, wheezing or hemoptysis GI: Denies: abdominal pain, nausea, vomiting, hematemesis, dysphagia, diarrhea, constipation, fecal incontinence, hematochezia or melena : Denies: flank pain, difficulty voiding, dysuria, urinary frequency, urinary urgency, urinary hesitancy, dribbling, nocturia, oliguria, urinary incontinence, hematuria, genital pruritis, vaginal odor, vaginal bleeding, vaginal discharge or dysmenorrhea Musc: Reports: other (no myalgias, no arthralgias) Skin/Breast: Denies: rash, sores, new lesions, changing lesions, breast tenderness, breast pain or nipple discharge Neuro: Denies: headache(s), numbness in extremities, frequent falls, dizziness, Slurred speech present, seizure-like activity, involuntary movements or restless legs Psych: Denies: anxiety, depression, paranoia, visual hallucinations, auditory hallucinations, tactile hallucinations, suicidal ideation or homicidal ideation Endo: Denies: polyuria, polydipsia, cold intolerance or heat intolerance [place]/Lymph: Denies: easy bruising, easy bleeding, petechiae, purpura, enlarged lymph nodes or tender lymph nodes All/Imm: Denies: urticaria, throat swelling, tongue swelling, facial swelling, itchy eyes or food intolerance Medications/Allergies Home Medications Medication Instructions Recorded Confirmed Last Taken Type cyanocobalamin (vitamin B-12) 1,000 mcg PO QPM 05/30/21 12/12/24 08/21/22 History 1,000 mcg tablet (Vitamin B-12) calcium carbonate 500 mg PO QPM 05/20/22 12/12/24 08/21/22 History cholecalciferol (vitamin D3) 50 50 mcg PO QPM 05/20/22 12/12/24 08/21/22 History mcg (2,000 unit) tablet (Vitamin D3) cetirizine 10 mg tablet 10 mg PO BID PRN allergy symptoms 06/10/23 12/12/24 Unknown Rx #180 tabs isosorbide mononitrate 30 mg 30 mg PO DAILY #90 tabs 11/26/23 12/12/24 Unknown Rx tablet,extended release 24 hr lisinopril 2.5 mg tablet 2.5 mg PO QAM #90 tabs 12/18/23 12/12/24 Unknown Rx furosemide 20 mg tablet See Rx Instructions .Route 01/07/24 12/12/24 Unknown Rx .COMPLEX #180 tabs hydrocodone 5 mg-acetaminophen 325 1 tab PO Q8H PRN pain 7 days #20 01/07/24 12/12/24 Unknown Rx mg tablet tabs potassium chloride 10 mEq 20 meq (2 x 10 mEq) PO DAILY #180 01/07/24 12/12/24 Unknown Rx tablet,extended release tabs rivaroxaban 20 mg tablet (Xarelto) See Rx Instructions .Route 01/07/24 12/12/24 Unknown Rx .COMPLEX #90 tabs nitroglycerin 0.4 mg sublingual 0.4 mg sublingual Q5M PRN chest 08/24/24 12/12/24 Unknown Rx tablet pain #25 tabs doxycycline hyclate 100 mg capsule 100 mg PO BID 10 days #20 caps 12/11/24 Unknown Rx guaifenesin 600 mg tablet, 600 mg PO BID 3 days #6 tabs 12/11/24 Unknown Rx extended release 12 hr (Mucinex) prednisone 20 mg tablet 40 mg (2 x 20 mg) PO DAILY 3 days 12/11/24 Unknown Rx #6 tabs acetaminophen 650 mg 650 mg PO Q12H 12/12/24 12/12/24 Unknown History tablet,extended release (Tylenol Arthritis Pain) Allergies Allergy/AdvReac Type Severity Reaction Status Date / Time iodine Allergy Unknown ALGY-Bliste Verified 08/30/24 07:05 r metoprolol Allergy Unknown Unknown Verified 08/30/24 07:05 alcohol Allergy ALGY-Hives Verified 08/30/24 07:05 alfalfa Allergy ALGY-Rash Verified 08/30/24 07:05 aloe vera Allergy ALGY-Bliste Verified 08/30/24 07:05 r atenolol Allergy ALGY-Swell Verified 08/30/24 07:05 Lip/Tongue/Throat bamboo Allergy ALGY-Rash Verified 08/30/24 07:05 barley Allergy ALGY-Rash Verified 08/30/24 07:05 bran Allergy ALGY-Hives Verified 08/30/24 07:05 Hartrand[place] And Derivatives Allergy ALGY-Hives Verified 08/30/24 07:05 clams Allergy ALGY-Difficulty Verified 08/30/24 07:05 Swallowing crab Allergy Unknown Verified 08/30/24 07:05 crayfish Allergy Unknown Verified 08/30/24 07:05 diphenhydramine Allergy ADR-Itching Verified 08/30/24 07:05 [From Benadryl] epinephrine Allergy ADR/ALGY-Pa Verified 08/30/24 07:05 lpitations grapefruit Allergy Unknown Verified 08/30/24 07:05 grass pollen Allergy ALGY-Rash Verified 08/30/24 07:05 juniper tar Allergy Unknown Verified 08/30/24 07:05 kiwi Allergy ALGY-Hives Verified 08/30/24 07:05 latex Allergy ALGY-Rash Verified 08/30/24 07:05 lavender (Lavandula Allergy ALGY-Rash Verified 08/30/24 07:05 angustifolia) lemon Allergy ALGY-Rash Verified 08/30/24 07:05 lemon oil Allergy ALGY-Rash Verified 08/30/24 07:05 licorice Allergy Unknown Verified 08/30/24 07:05 [place] Allergy Unknown Verified 08/30/24 07:05 molasses Allergy Unknown Verified 08/30/24 07:05 mold Allergy ALGY-Rash Verified 08/30/24 07:05 mussels Allergy Unknown Verified 08/30/24 07:05 nut - unspecified Allergy ALGY-Hives Verified 08/30/24 07:05 oats Allergy ALGY-Hives Verified 08/30/24 07:05 octopus Allergy Unknown Verified 08/30/24 07:05 orange Allergy ALGY-Rash Verified 08/30/24 07:05 oyster extract Allergy Unresponsiv Verified 08/30/24 07:05 e passion fruit Allergy Unknown Verified 08/30/24 07:05 scallops Allergy Unknown Verified 08/30/24 07:05 shellfish derived Allergy ALGY-Swell Verified 08/30/24 07:05 Lip/Tongue/Throat shrimp Allergy Unknown Verified 08/30/24 07:05 squid Allergy Unknown Verified 08/30/24 07:05 wheat Allergy ALGY-Hives Verified 08/30/24 07:05 shell fish Allergy Severe ALGY-Swell Uncoded 08/30/24 07:05 Lip/Tongue/Throat abolone Allergy Unknown Uncoded 08/30/24 07:05 anchovie Allergy ALGY-Hives Uncoded 08/30/24 07:05 antibacterial soap Allergy Unknown Uncoded 08/30/24 07:05 berries Allergy ALGY-Hives Uncoded 08/30/24 07:05 carob Allergy Unknown Uncoded 08/30/24 07:05 contrast dye Allergy ALGY-Difficulty Uncoded 08/30/24 07:05 Breathing gold Allergy Unknown Uncoded 08/30/24 07:05 hemp oil Allergy ALGY-Rash Uncoded 08/30/24 07:05 kumquat Allergy Unknown Uncoded 08/30/24 07:05 lobster Allergy Unknown Uncoded 08/30/24 07:05 malt Allergy ALGY-Bliste Uncoded 08/30/24 07:05 r mesquite Allergy Unknown Uncoded 08/30/24 07:05 millet Allergy ALGY-Rash Uncoded 08/30/24 07:05 mink oil Allergy ALGY-Rash Uncoded 08/30/24 07:05 mola Allergy Unknown Uncoded 08/30/24 07:05 MSG Allergy Unknown Uncoded 08/30/24 07:05 prawn Allergy Unknown Uncoded 08/30/24 07:05 rye Allergy ALGY-Rash Uncoded 08/30/24 07:05 snail Allergy Unknown Uncoded 08/30/24 07:05 sorghum Allergy Unknown Uncoded 08/30/24 07:05 tangello Allergy Unresponsiv Uncoded 08/30/24 07:05 e tangerine Allergy Unknown Uncoded 08/30/24 07:05 worcestershire sauce AdvReac Severe ALGY-Swell Uncoded 08/30/24 07:05 Lip/Tongue/Throat PFSH Acute 2 PFSH: Medical History (Updated 12/12/24 @ 04:15 by Cally Hardy MD) Asthma Osteoarthritis of left knee Statin intolerance Osteoarthritis of right hip severe on imaging; Hx of deep venous thrombosis right leg Chronic venous insufficiency of lower extremity R leg; hx of DVT this leg Disability of walking Aortic stenosis Osteoporosis didn't tolerate oral bisphosphonates; did prolia for 5 yrs; she doesn't want to do any more DEXAs Bradycardia sees cardio [facility] Carotid atherosclerosis bilateral mild on US 04/08 Chronic atrial fibrillation Chest pain Symptomatic bradycardia Anticoagulation adequate with anticoagulant therapy COPD (chronic obstructive pulmonary disease) Pulmonary arterial hypertension Sleep apnea not using CPAP; sleeps in recliner Hypertension CAD (coronary artery disease) seeing cardio in [place] Surgical History Status post laparoscopic cholecystectomy (03/06/21) H/O left knee surgery arthroscopic H/O right knee surgery arthroscopic H/O tubal ligation History of colonoscopy with polypectomy 2017 History of esophagogastroduodenoscopy (EGD) Family History Mother Diabetes CAD (coronary artery disease) Social History Smoking and tobacco/nicotine status: never used tobacco/nicotine Second hand smoke exposure: No Alcohol intake: never Substance/Drug Use: never Lives independently: Yes Household members: none Marital status: / Number of children: 3 Highest education level completed: Some College, No Degree Current occupational status: 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 Do you think of yourself as: Straight/Heterosexual Current gender identity: Female Female Reproductive History: Spontaneous abortions: No Vitals/I&O/Wt Last Vital Signs Temp 98.0 F 12/13/24 07:25 Pulse 72 12/13/24 09:13 Resp 16 12/13/24 09:13 BP 123/73 12/13/24 07:25 Pulse Ox 96 12/13/24 09:13 O2 Del Method Nasal Cannula 12/13/24 09:13 O2 Flow Rate 2 12/13/24 09:13 12/12/24 12/13/24 12/13/24 22:59 06:59 14:59 Intake Total 480 / 480 240 / 720 240 / 240 Output Total 1200 / 1200 400 / 1600 Balance -720 / -720 -160 / -880 240 / 240 Weight last 48 hrs Weight 94.302 kg Weight 94.166 kg Weight 93.894 kg Weight 92.986 kg Physical Exam 2 Const: GENERAL APPEARANCE: cooperative, comfortable and appears older than stated age; not combative, not disheveled, not ill appearing and not frail appearing HENMT: HEAD & SCALP: normocephalic and atraumatic; no Tucker's sign, no laceration, no occipital foramen tenderness, no palpable skull fracture, no raccoon eyes, no scalp tenderness and no Temporal artery tenderness present NOSE: external nose not normal EXTERNAL EAR: no external ears normal MOUTH: Normal oral and palatal mucosa present THROAT: posterior oropharynx normal Eye: OTHER: PERRL, EOMI, normal conjunctiva b/l Neck/C-Spine: GENERAL: Yes normal visual inspection, Yes trachea midline, No anterior neck swelling, No tracheal deviation, No tracheostomy present and No submandibular swelling THYROID: Thyroid normal CERVICAL SPINE: Yes cervical ROM normal Lymph: OTHER: no cervical, supraclavicular LAD Resp: OTHER: CTAB, no w/r/r Cardio: OTHER: RRR, no m/r/g, or clicks. 2+ radial and DP pulses. GI: OTHER: normoactive bowel sounds, non-tender, non-distended, no guarding, no rigidity, no rebound tenderness, no hepatosplenomegaly. : OTHER: (-) Gregory in place draining urine, (-) C VA tenderness Back/Pelvis: OTHER: Deferred Extremity: GENERAL: No clubbing, No cyanosis and No edema Neuro: SENSORIUM/ORIENTATION: Yes alert, Yes oriented to person, Yes oriented to place and Yes oriented to time CRANIAL NERVES: Yes CN normal except as noted GAIT: Yes Normal gait present MOTOR EXAM: 5/5 motor strength present throughout, no tremor noted, Normal motor muscle tone present throughout, Motor abnormalities not present and No Motor fasciculations present Psych: APPEARANCE: Yes grossly normal ATTITUDE: Yes calm and Yes engaged ACTIVITY/MOTOR BEHAVIOR: Yes appropriate eye contact SPEECH: Yes normal speech MOOD & AFFECT: Yes euthymic mood THOUGHT PROCESS: Normal thought process present THOUGHT CONTENT: Yes Normal thought content present A TTENTION/CONCENTRATION: Yes attention grossly intact MEMORY/COGNITION: Yes memory grossly intact Skin: GENERAL SKIN EXAM: no rashes or lesions noted Data 12/13/24 06:55 12/13/24 06:55 Micro: Microbiology 12/11/24 22:57 Blood Culture - Preliminary Blood NEGATIVE TO DATE 12/11/24 00:00 Blood Culture - Preliminary Blood NEGATIVE TO DATE Coding Level of Care Code Acute Code for Chg Fwd
--- NOTE | 2024-12-13 10:18 | P.MISC_ITS ---
Miscellaneous Note Note: Constitutional: (-) fever(s), (-) chills, (-)body aches, (-) change in appetite, (-)change in weight, (-)fatigue, (-) malaise, (-) night sweats, (-) diaphoresis Eyes: (-) change in vision, (-) blurry vision, (-) diplopia, (-) floaters, ENT: (-) ear pain, (-) ear discharge, (-) aural fullness, (-) tinnitus, (-)nasal discharge, (-)nasal congestion, (-) post nasal drip, (-)dysphagia, (- )odynophagia, (-)hoarseness, Card: (-) Chest pain, (-) palpitations, (-) pedal edema, (-) orthopnea, (-) lightheadedness, (-) syncope, (-) pre-syncope, (-) leg pain with exertion Resp: (-)dyspnea, (-)dyspnea on exertion, (-) cough, (-) wheezing, (-) hemoptysis GI: (-) abdominal pain, (-) nausea, (-) vomiting, (-) hematemesis, (-) diarrhea, (-) constipation, (-) hematochezia, (-) melena : (-) flank pain, (-) dysuria, (-) hematuria, (-) urinary urgency, (-) urinary frequency, (-)oliguria, (-) difficulty voiding, (-) urinary incontinence, (-) urinary hesitancy, (-) dribbling, (-) nocturia, (-) genital pruritis, (-)vaginal odor, (-) vaginal discharge, (-) vaginal bleeding, (-) dysmenorrhea MSK: (-) myalgias, (-) arthralgias Skin/Breast: (-) rash, (-) sores, (-) new lesions, (-) breast tenderness, (-) breast pain, or (-) nipple discharge Neuro: (-) headaches, (-) dizziness, (-) generalized weakness, (-) weakness in the extremities, (-) numbness in extremities, (-) tingling, (-) frequent falls, (-) Slurred speech present, (-) seizure-like activity, (-) involuntary movements, (-) restless legs Psych: (-) anxiety, (-) depression, (-)paranoia, (-) visual hallucinations, (-) auditory hallucinations, (-)tactile hallucinations, (-) suicidal ideation, (-) homicidal ideation Endo: (-) polyuria, (-) polydipsia, (-) polyphagia, (-)cold intolerance, (-) heat intolerance Heme/Lymph: (-) easy bruising, (-) easy bleeding, (-) petechiae, (-) purpura, (- ) enlarged lymph nodes, (-) tender lymph nodes Allergy/Immunlogy: (-) food intolerance, (-) hives/urticaria, (-) itchy/watery eyes, (-) tongue/throat swelling, (-) facial swelling, Constitutional: GENERAL APPEARANCE: cooperative, comfortable and appears older than stated age; not combative, not disheveled, not ill appearing and not frail appearing HENT: HEAD & SCALP: normocephalic and atraumatic; no Tucker's sign, no laceration, no occipital foramen tenderness, no palpable skull fracture, no raccoon eyes, no scalp tenderness and no Temporal artery tenderness present NOSE: external nose not normal EXTERNAL EAR: no external ears normal MOUTH: Normal oral and palatal mucosa present THROAT: posterior oropharynx normal Eye: PERRL, EOMI, normal conjunctiva b/l Neck: normal visual inspection, trachea midline, No anterior neck swelling, No tracheal deviation, No tracheostomy present, no submandibular swelling, Thyroid normal , cervical ROM normal Lymph: no cervical, supraclavicular LAD Resp: no use of accessory muscles, CTAB, no w/r/r Cardio: RRR, no m/r/g, or clicks. 2+ radial and DP pulses. GI: normoactive bowel sounds, non-tender, non-distended, no guarding, no rigidity, no rebound tenderness, no hepatosplenomegaly. : (-) Gregory in place draining urine, (-) CVA tenderness Back/Pelvis: Deferred Extremity: No clubbing, No cyanosis and No edema Neuro: AO to person, place and time. CN normal except as noted. Normal gait present. 5/5 motor strength present throughout. Normal motor muscle tone present throughout. No tremor noted. No motor abnormalities present. No motor fasciculations present Psych: APPEARANCE: Yes grossly normal ATTITUDE: Yes calm and Yes engaged ACTIVITY/MOTOR BEHAVIOR: Yes appropriate eye contact SPEECH: Yes normal speech MOOD & AFFECT: Yes euthymic mood THOUGHT PROCESS: Normal thought process present THOUGHT CONTENT: Yes Normal thought content present ATTENTION/CONCENTRATION: Yes attention grossly intact MEMORY/COGNITION: Yes memory grossly intact
[2024-12-13] MEDS: FUROsemide 10 mg/mL SDV 4mL 40 MG IVP (14:43)
[2024-12-13] MEDS: oxyCODONE-APAP 5-325 mg Tablet 1 TAB PO ×2 (17:21→23:57)
--- NOTE | 2024-12-13 18:49 | PC.NURSE ---
Pt complains of pain to right hip while using commode p Lasix administration. This RN offers pain medication and the possibility of a meyer catheter. Pt refuses both. After approx. 1 hour, pt states that she would like pain medication. Medication administered. Pt continues to refuse possible meyer catheter. Pt also states that she has been overdosed on Lasix because she is peeing too much. This RN educates patient on Lasix and mechanism of action.
[2024-12-14] VITALS (18 sets, daily range): BP systolic 69–121; BP diastolic 42–77; PULSE 61–122; RESP 16–19; TEMP 36.6–37; O2SAT 88–99
[2024-12-14] MEDS: cefTRIAXone 1,000 mg SDV 1000 MG IVP (00:05)
[2024-12-14] MEDS: pantoprazole 40 mg SDV IVP (06:27)
[2024-12-14 06:52] LABS: Basophils % 0.1 %; Hematocrit 38.4 % (36-47); Lymphocytes # 0.7 10^3/uL (0.8-4.8); Lymphocytes % 8.6 %; Mean Corpuscular HGB Conc 31.8 g/dL (30-55); Mean Corpuscular Hemoglobin 29.8 pg (27-33); Mean Corpuscular Volume 93.7 fl (85-98); Mean Platelet Volume 10.3 fL (7.4-10.4); Monocytes % 12.2 %; Neutrophils # 6.11 10^3/uL (1.8-7.7); Neutrophils % 78.7 %; Nucleated Red Blood Cells % 0 %; Platelet Count 142 10^3/cmm (157-399); Red Cell Distribution Width 13.5 % (12.1-15.1); White Blood Count 7.77 10^3/uL (3.29-11.43)
[2024-12-14 07:09] LABS: Alanine Aminotransferase 22 U/L (0-33); Albumin Level 3.5 g/dL (3.5-5.2); Alkaline Phosphatase 59 U/L (35-105); Aspartate Amino Transferase 35 U/L (0-32); Blood Urea Nitrogen 28 mg/dL (8-23); Calcium 8.8 mg/dL (8.5-10.5); Carbon Dioxide 32 mmol/L (22-29); Chloride 97 mmol/L (98-107); Creatinine Clr Calc Pharmacy 64.1923; Globulin 2.3 g/dL (1.3-4.6); Glucose 146 mg/dL (65-115); Magnesium 2.2 mg/dL (1.7-2.3); Osmolality Calculated 294 mOsm/kg (285-295); Phosphorus 4.5 mg/dL (2.5-4.5); Sodium 138 mmol/L (136-145); Total Bilirubin 0.9 mg/dL (0.15-1.2); Total Protein 5.8 g/dL (6.6-8.7)
[2024-12-14] MEDS: ipratropium-albuterol 3 mL Neb INHALATION ×3 (08:18→20:24)
[2024-12-14] MEDS: methylPREDNISolone sod succ 125 mg/2 mL INJ 60 MG IVP (08:52)
[2024-12-14] MEDS: enoxaparin 100 mg/mL Syringe 90 MG SUBCUT (08:52)
[2024-12-14] MEDS: sennosides 8.6 mg Tablet 17.2 MG PO (08:53)
[2024-12-14] MEDS: azithromycin 250 mg Tablet 500 MG PO (08:53)
--- NOTE | 2024-12-14 10:15 | PC.SOCIAL ---
IMM Updated Updated pt on IMM. No questions voiced. Provided pt a copy. Initialed, dated, & timed a copy & placed in chart.
--- NOTE | 2024-12-14 11:13 | PM.PN ---
Vitals/I&O/Wt Last Vital Signs Temp 97.9 F 12/14/24 08:00 Pulse 73 12/14/24 08:00 Resp 18 12/14/24 08:00 BP 110/69 12/14/24 08:00 Pulse Ox 95 12/14/24 08:00 O2 Del Method Nasal Cannula 12/14/24 08:00 O2 Flow Rate 1 12/14/24 08:00 12/13/24 12/14/24 12/14/24 22:59 06:59 14:59 Intake Total 120 / 480 75 / 555 480 / 480 Output Total 1300 / 1300 Balance -1180 / -820 75 / -745 480 / 480 Weight last 48 hrs Weight 89.902 kg Weight 94.302 kg Weight 94.166 kg Weight 93.894 kg Data 12/14/24 06:40 12/14/24 06:40 Coding Level of Care Code Acute Code for Chg Fwd
--- NOTE | 2024-12-14 11:16 | P.PN_ITS ---
Documented by User: Zuhair Bush 12/14/24 11:31 Subjective 2 Subjective: Patient was seen this morning. No acute overnight events. She reports that she is still having her intermittent chest pain but her coughing has improved slightly. She reports pain in RLQ abdomen and some pain in legs after getting up to use the bathroom multiple times at night. She reports better breathing this morning but states that she is feeling more dizzy this morning. Vitals/I&O/Wt Last Vital Signs Temp 97.9 F 12/14/24 08:00 Pulse 73 12/14/24 08:00 Resp 18 12/14/24 08:00 BP 110/69 12/14/24 08:00 Pulse Ox 95 12/14/24 08:00 O2 Del Method Nasal Cannula 12/14/24 08:00 O2 Flow Rate 1 12/14/24 08:00 12/13/24 12/14/24 12/14/24 22:59 06:59 14:59 Intake Total 120 / 480 75 / 555 480 / 480 Output Total 1300 / 1300 Balance -1180 / -820 75 / -745 480 / 480 Weight last 48 hrs Weight 89.902 kg Weight 94.302 kg Weight 94.166 kg Weight 93.894 kg Physical Exam 2 Resp: AUSCULTATION: wheezes Cardio: RHYTHM: abnormal rhythm HEART SOUNDS: Murmur heart sound present Data 12/14/24 06:40 12/14/24 06:40 A&P Assessment and plan (1) Hypertension: Qualifiers: Hypertension type: primary hypertension Qualified Code(s): I10 - Essential (primary) hypertension (2) CAD (coronary artery disease): Qualifiers: Coronary Disease-Associated Artery/Lesion type: [place] artery [place] vs. transplanted heart: [place] heart Associated angina: without angina Qualified Code(s): I25.10 - Atherosclerotic heart disease of [place] coronary artery without angina pectoris (3) COPD (chronic obstructive pulmonary disease): Qualifiers: COPD type: emphysema Emphysema type: unspecified Qualified Code(s): J 43.9 - Emphysema, unspecified (4) Asthma exacerbation: (5) Disability of walking: (6) Weakness: (7) Balance problem: Plan Lelia Mcguire is a 79 yo woman w/ CAD, chronic Afib,chronic HFpEF, Asthma, pulm HTN, ELBA not on CPAP because it was recalled, HTN who presents to the ED on 12/11/2024 w/ complaints 2 day of productive cough of yellow sputum. Acute hypoxic respiratory failure: She normally does not require O2 at home. Currently on 3L, with witnessed O2 desaturations while speaking during her HPI interview. Will continue to monitor. Asthma exacerbation: Notes document COPD, but per Dr. Sheridan's note in 04/2020, she has Asthma, Th2 phenotype. Patient has not seen Pulmonology since Dr. Sheridan left. - F/u BCx, sputum cx. - BCx negative to date. - Continue Ceftriaxone, Doxycycline, duonebs, PPI, Solumedrol - Started on Azithromycin 500mg PO daily (12/14) - Solumedrol switch from q8H to q12H (12/14) Chronic AFib: -Continue home meds HTN CAD pulm HTN - Resume home meds as appropriate - bilateral lower extremity edema present - trial on Lasix 40 IV x 1 (12/12) - started Lasix 40mg PO daily (12/13) - Patient appears over-diuresed. Will discontinue Lasix (12/14). - Will give fluid 500cc NS bolus (12/14) ELBA - not on CPAP because it was recalled. hx of R. lower extremity DVT -I do not see any records of this. Hx of prolonged bleeding with procedures: she tells of a hx of bleeding from 9 to 12hrs after dental procedures. She states that her INR at a time was 8. This was back in 1989, when she lived in [facility]. She may need to get referred to Hematology for further evaluation. DVTppx: Lovenox GI ppx: PPI 12/12/2024 -Continue management as per H&P. ? Patient does have mild to moderate mitral regurgitation on echo from March 2024. ? Bilateral lower extremities edema present. I will order Lasix 40 IV x 1 as a trial. ? Repeat echo. Suspect mitral regurgitation worsening. 12/13/2024 - echo pending feeling slightly better significant wheezing still present continue steroids, ceftriaxone azithromycin 12/13/2024 - echo pending -feeling slightly better -wheezing still present -continue steroids, ceftriaxone azithromycin -discontinue lasix -administer 500cc NS bolus -consult PT and plan to discharge tomorrow Coding Level of Care Code 78154 Diagnoses Primary hypertension I10 Hypertension type: primary hypertension Coronary artery disease involving [place] coronary artery of [place] heart without angina pectoris I25.10 Coronary Disease-Associated Artery/Lesion type: [place] artery [place] vs. transplanted heart: [place] heart Associated angina: without angina Pulmonary emphysema, unspecified emphysema type J43.9 COPD type: emphysema Emphysema type: unspecified Asthma exacerbation J45.901 Disability of walking R26.2 Weakness R53.1 Balance problem R26.89 Documented by User: Rosa Tristan MD 12/14/24 13:36 Subjective 2 Subjective: Patient was seen this morning. No acute overnight events. She denies chest pain. She states that she she has pain in RLQ abdomen and some pain in legs after getting up to use the bathroom multiple times at night. She reports better breathing this morning but states that she is feeling more dizzy this morning. Physical Exam 2 Const: GENERAL APPEARANCE: cooperative and comfortable O RIENTATION/CONSCIOUSNESS: Yes awake, Yes oriented to person, Yes oriented to place and Yes oriented to time HENMT: COMMON NORMALS: normocephalic, atraumatic, external ears normal and Normal external nose present HEAD & SCALP: normocephalic and atraumatic N OSE: Normal external nose present EXTERNAL EAR: Yes external ears normal M OUTH: Normal oral and palatal mucosa present Eye: OTHER: PERRL, EOMI, normal conjunctiva bilaterally. Neck/C-Spine: COMMON NORMALS: Thyroid normal GENERAL: Yes normal visual inspection and Yes trachea midline THYROID: Thyroid normal CAROTIDS: No bruit CERVICAL SPINE: Yes cervical ROM normal Lymph: LYMPHATIC: no lymphadenopathy noted Resp: OTHER: Clear to auscultation bilaterally no wheezes no rhonchi. Cardio: OTHER: Irregular rate and rhythm. Rate controlled. 3/6 systolic murmurs GI: OTHER: BS+, NT, ND, no guarding, no rigidity, no rebound tenderness, no hepatosplenomegaly. Extremity: NARRATIVE EXTREMITY EXAM: b/l edema in lower extremities, trace edema. Significant improvement since admission. Neuro: SENSORIUM/ORIENTATION: Yes oriented to person, Yes oriented to place and Yes oriented to time CRANIAL NERVES: Yes CN normal except as noted S PEECH: speech abnormal SENSORY EXAM: No sensory level loss detected MOTOR EXAM: 5/5 motor strength present throughout and Normal motor muscle tone present throughout Psych: COMMON NORMALS: Normal thought process present and speech normal A PPEARANCE: Yes grossly normal ATTITUDE: Yes calm and Yes engaged A CTIVITY/MOTOR BEHAVIOR: Yes appropriate eye contact SPEECH: Yes normal speech MOOD & AFFECT: Yes euthymic mood THOUGHT PROCESS: Normal thought process present THOUGHT CONTENT: Yes Normal thought content present A TTENTION/CONCENTRATION: Yes attention grossly intact Skin: COMMON NORMALS: no rashes or lesions noted GENERAL SKIN EXAM: no rashes or lesions noted Data 12/14/24 06:40 12/14/24 06:40 A&P Assessment and plan (1) Hypertension: Qualifiers: Hypertension type: primary hypertension Qualified Code(s): I10 - Essential (primary) hypertension (2) CAD (coronary artery disease): Qualifiers: Coronary Disease-Associated Artery/Lesion type: [place] artery [place] vs. transplanted heart: [place] heart Associated angina: without angina Qualified Code(s): I25.10 - Atherosclerotic heart disease of [place] coronary artery without angina pectoris (3) COPD (chronic obstructive pulmonary disease): Qualifiers: COPD type: emphysema Emphysema type: unspecified Qualified Code(s): J 43.9 - Emphysema, unspecified (4) Asthma exacerbation: (5) Disability of walking: (6) Weakness: (7) Balance problem: Plan Lelia Mcguire is a 79 yo woman w/ CAD, chronic Afib,chronic HFpEF, Asthma, pulm HTN, ELBA not on CPAP because it was recalled, HTN who presents to the ED on 12/11/2024 w/ complaints 2 day of productive cough of yellow sputum. Acute hypoxic respiratory failure: She normally does not require O2 at home. Currently on 3L, with witnessed O2 desaturations while speaking during her HPI interview. Will continue to monitor. Asthma exacerbation: Notes document COPD, but per Dr. Sheridan's note in 04/2020, she has Asthma, Th2 phenotype. Patient has not seen Pulmonology since Dr. Sheridan left. - F/u BCx, sputum cx. - BCx negative to date. - Continue Ceftriaxone, Doxycycline, duonebs, PPI, Solumedrol - Started on Azithromycin 500mg PO daily (12/14) - Solumedrol switch from q8H to q12H (12/14) Chronic AFib: -Continue home meds HTN CAD pulm HTN - Resume home meds as appropriate - bilateral lower extremity edema present - trial on Lasix 40 IV x 1 (12/12) - started Lasix 40mg PO daily (12/13) - Patient appears over-diuresed. Will discontinue Lasix (12/14). - Will give fluid 500cc NS bolus (12/14) ELBA - not on CPAP because it was recalled. hx of R. lower extremity DVT -I do not see any records of this. Hx of prolonged bleeding with procedures: she tells of a hx of bleeding from 9 to 12hrs after dental procedures. She states that her INR at a time was 8. This was back in 1989, when she lived in [facility]. She may need to get referred to Hematology for further evaluation. DVTppx: Lovenox GI ppx: PPI 12/12/2024 -Continue management as per H&P. ? Patient does have mild to moderate mitral regurgitation on echo from March 2024. ? Bilateral lower extremities edema present. I will order Lasix 40 IV x 1 as a trial. ? Repeat echo. Suspect mitral regurgitation worsening. 12/13/2024 - echo pending feeling slightly better significant wheezing still present continue steroids, ceftriaxone azithromycin 12/14/2024 - echo pending -Breathing aspect by the patient is feeling better. There were no wheezes present on exam. Lungs are clear to auscultation bilaterally. ? Switch to Solu-Medrol 40 daily. -continue steroids, ceftriaxone azithromycin -Hold Lasix at this time. -administer 500cc NS bolus -consult PT and plan to discharge tomorrow ? Patient would like an enema today. Attestations 2 Medical Necessity Statement*: Requires continued hospitalization for management of COPD exacerbation Diagnoses Primary hypertension I10 Hypertension type: primary hypertension Coronary artery disease involving [place] coronary artery of [place] heart without angina pectoris I25.10 Coronary Disease-Associated Artery/Lesion type: [place] artery [place] vs. transplanted heart: [place] heart Associated angina: without angina Pulmonary emphysema, unspecified emphysema type J43.9 COPD type: emphysema Emphysema type: unspecified Asthma exacerbation J45.901 Disability of walking R26.2 Weakness R53.1 Balance problem R26.89
[2024-12-14] MEDS: sodium chloride 0.9% 500 ML IV (11:42)
[2024-12-14] MEDS: oxyCODONE-APAP 5-325 mg Tablet 1 TAB PO ×2 (12:14→17:51)
[2024-12-14] MEDS: methylPREDNISolone sod succ 40 mg/mL INJ IVP (15:40)
--- NOTE | 2024-12-14 18:45 | PC.NURSE ---
BEHAVIOR NOTE : Discrepancies noted between patients reports and observed behaviors. Patient reports to the physician that she is constipated and has not produced any urine or stool. Patient then tells respiratory that she has had diarrhea. When assessed by this RN, the patient is frustrated that someone believes she had diarrhea because it is untrue. This RN empties commode filled with loose stool - she is the only patient using commode. Patient states that she had a 10lb baby with all of their baby teeth. Patient states that she has not had any pain medication today, despite receiving two doses. Patient reassured in these situations of reality. Easily deescalated.
--- NOTE | 2024-12-14 22:11 | ECG_ITS ---
[facility] Test Date: 2024-12-14 Pat Name: Lelia Mcguire Department: Room: 279 Gender: Female Diagnostic Technologist: : 1945 Requested By: Michelle Sen Order Number: [id number] Khushbu MD: Nhan Perrin M.D. Measurements Intervals [place] Rate: 142 P: 0 AL: 0 QRS: 53 QRSD: 72 T: 18 QT: 279 QTc: 429 Interpretive Statements ATRIAL FIBRILLATION WITH RAPID VENTRICULAR RESPONSE WITH ABERRANT CONDUCTION OR VENTRICULAR PREMATURE COMPLEXES MODERATE ST DEPRESSION [0.05+ mV ST DEPRESSION] Compared to ECG 12/11/2024 16:58:37 ST (T wave) deviation now present Myocardial infarct finding no longer present T-wave abnormality no longer present Possible ischemia no longer present Electronically Signed On 12-15-2024 11:11:22 MANAGER OF INVESTIGATIONS by Nhan Perrin M.D. [email or web address]
[2024-12-14 22:13] LABS: Glucose Point of Care 274 mg/dL (70-110)
--- NOTE | 2024-12-14 22:34 | P.EN_ITS ---
Event Note Event Note: Rapid response was called for low blood pressure 70/40s while patient was on the bedside commode When I arrived patient was very cold and clammy, was able to respond to simple questions, blood sugar was above 200 She was put in Trendelenburg position, EKG showed A-fib RVR heart rate 145 she was not complaining of any active chest pain or shortness of breath, her oxygen requirement increased up to 4 L Patient was being diuresed on review of records CBC BMP unremarkable for the morning Clinically patient does have signs of fluid overload with lower extremity edema CT scan, echo reviewed she does have preserved action fraction There was no good IV access to start Levophed on MedSurg hence Decision was made to transfer patient to ICU, use Levophed and amiodarone I have requested lactic acid, BMP, EKG Event Notes Attestations 2 Time Spent in Patient Care: Patient needs my direct attention, rapid response was called, she has been transferred to ICU, multiple evaluations needed overnight
[2024-12-14 22:50] LABS: Anion Gap 34.2 (5-19); Blood Urea Nitrogen 47 mg/dL (8-23); Calcium 8.7 mg/dL (8.5-10.5); Carbon Dioxide 16 mmol/L (22-29); Chloride 88 mmol/L (98-107); Creatinine Clr Calc Pharmacy 25.6769; Glucose 343 mg/dL (65-115); Osmolality Calculated 304 mOsm/kg (285-295); Potassium 4.2 mmol/L (3.5-5.1); Sodium 134 mmol/L (136-145)
[2024-12-14 22:54] LABS: Lactate (Lactic Acid level) 14.3 mmol/L (0.5-2.2)
--- NOTE | 2024-12-14 22:58 | PC.NURSE ---
nurse went into room and patient was laying on her back across the bed. nurse and nude model sat patient up and stood her up to get on the bedside commode and patient sat down and as she sat down she went unresponsive her pupils were dilated and her skin was clammy and her face was nevarez as well as her lips. she was unable to speak. nurse got charge nurse and charge nurse called a rapid response at 2200. nurse, charge nurse, dr dailey, blanca and elisa from RT, mahamed from ED, erin from ICU, fernando from lab, leslie household appliance assembler, Jonnathan from security were all present in room for the care. an ekg was ran, bmp and lactic acid was drawn, blood sugar was taken it read 274, blood pressure was taken was 78/44. patient started to respond, nurses stood patient up and put her in bed, her color started to come back her lips were still the color of martínez, she was able to say her first and last name. dr dailey ordered an amio drip and ordered for her to be transferred to ICU. nurse called report and patient was taken to ICU bed 2.
[2024-12-14 23:00] LABS: NT Pro B Type Natriuretic Pept 1791 pg/mL (0-450)
[2024-12-14] MEDS: sodium chloride 0.9% 250 ML IV (23:06)
--- NOTE | 2024-12-14 23:45 | XRR_ITS ---
PROCEDURE INFORMATION: Exam: XR Pelvis Exam date and time: 12/15/2024 3:57 AM Age: 79 years old Clinical indication: Pelvic pain; Additional info: Central line placement TECHNIQUE: Imaging protocol: Radiologic exam of the pelvis. Views: 1 or 2 view. COMPARISON: CT pelvis con [id number] 03/20/2024 3:05 PM FINDINGS: Tubes, catheters and devices: Right femoral axis catheter is seen, terminating a few cm above the right acetabulum. Bones/joints: Severe degenerative change of the visualized osseous structures. Soft tissues: Unremarkable. Organs: Large calcified fibroid is seen. 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
[2024-12-14] MEDS: norepinephrine 4 MG/250 ML BAG 22.5 MG IV (23:55)
[2024-12-15] VITALS (106 sets, daily range): BP systolic 70–163; BP diastolic 36–102; PULSE 59–110; RESP 18–37; TEMP 36.4–37.2; O2SAT 73–100; BMI 33.5
--- NOTE | 2024-12-15 | PC.NURSE ---
ICU Transfer Upon transfer to ICU, left AC IV infiltrated. New right upper arm IV placed via ultrasound after multiple insertion attempts. Dr. Sen notified of hard IV placement as well as critical lactic acid and lower blood pressures. Order placed for a meyer catheter and central line placement. Dr. Sen to place.
[2024-12-15] MEDS: amiodarone 150 MG/100 ML PREMIX 400 MG IV (00:01)
[2024-12-15] MEDS: enoxaparin 100 mg/mL Syringe 90 MG SUBCUT (00:05)
--- NOTE | 2024-12-15 00:07 | PM.ACPR ---
Acute Procedures Central Line Placement: Right Femoral: Time out performed: Yes Patient placed on monitor/pulse ox: Yes MD prep: mask, gown, gloves and other Central line prep: Povidone-Iodine 1%, Chlorhexidine scrub and sterile drapes applied Local anesthesia used: lidocaine 1% Amount of anesthesia used (ml): 5 Ultrasound used for placement: Yes Central line lumen inserted: triple Post procedure: sutured in place, good blood return, all ports aspirated, flushed, capped and sterile dressing applied Post procedure x-ray: tip of catheter in good position Patient tolerated procedure: well and no complications Complications: none Additional comments: This line was placed because it was difficult to get an IV via ultrasound and patient was hypotensive with lactic acid of 14, central line was placed and a rapid response situation patient gave verbal consent as well she was awake and alert, ultrasound-guided central line placement without any complications, Good venous return noticed in all 3lumens, central line is good to be used
[2024-12-15] MEDS: cefTRIAXone 1,000 mg SDV 1000 MG IVP (00:09)
--- NOTE | 2024-12-15 00:10 | CTR_ITS ---
PROCEDURE INFORMATION: Exam: CT Chest Without Contrast; Diagnostic Exam date and time: 12/15/2024 7:55 AM Age: 79 years old Clinical indication: Abdominal tenderness; Shortness of breath; Additional info: Lactic 14 , hypotensive TECHNIQUE: Imaging protocol: Diagnostic computed tomography of the chest without contrast. Radiation optimization: All CT scans at this facility use at least one of these dose optimization techniques: automated exposure control; mA and/or kV adjustment per patient size (includes targeted exams where dose is matched to clinical indication); or iterative reconstruction. COMPARISON: CT chest wo con [id number] 12/11/2024 10:56 PM RADIATION DOSE METRICS: Total DLP (mGy-cm): 1004.61 FINDINGS: Lungs: Minimal bronchial wall thickening. No focal consolidation. 2 mm nodule right lower lobe. Pleural spaces: Unremarkable. No pneumothorax. No pleural effusion. Heart: Unremarkable. No cardiomegaly. No pericardial effusion. Coronary arteries: Dense coronary calcifications Esophagus: Air and fluid-filled esophagus diffusely. Possible small hiatal hernia. Mediastinal space: Thoracic inlet is unremarkable. Lymph nodes: mediastinum is unremarkable other than a few small mediastinal lymph nodes. Vasculature: Calcification of the aorta. Origin of the great vessels including the innominate artery, the right common carotid artery, the subclavian arteries and the left common carotid artery are normal. Aneurysmal dilatation of the ascending aorta maximal diameter of 5.2 cm. Bones/joints: Moderate degenerative changes within the visualized portions of the spine. Soft tissues: Soft tissues are unremarkable. < or = 4 mm: No follow-up needed. High risk patients < or = 4 mm: Follow-up at 12 months. If no change, no further imaging needed. Note.-Newly detected indeterminate nodule in persons 35 years of age or older. Low risk patients: Minimal or absent history of smoking and of other known risk factors. High risk patients: History of smoking or of other known risk factors. PROCEDURE INFORMATION: Exam: CT Abdomen And Pelvis Without Contrast Exam date and time: 12/15/2024 7:55 AM Age: 79 years old Clinical indication: Abdominal tenderness; Shortness of breath; Additional info: Lactic 14 , hypotensive TECHNIQUE: Imaging protocol: Computed tomography of the abdomen and pelvis without contrast. Radiation optimization: All CT scans at this facility use at least one of these dose optimization techniques: automated exposure control; mA and/or kV adjustment per patient size (includes targeted exams where dose is matched to clinical indication); or iterative reconstruction. COMPARISON: CT pelvis wo con [id number] 03/20/2024 3:05 PM RADIATION DOSE METRICS: Total DLP (mGy-cm): 1004.61 FINDINGS: Liver: Normal. No mass. Gallbladder and biliary ducts: Surgical clips are present in the region of the gallbladder fossa. Pancreas: Normal. No ductal dilation. Spleen: Normal. No splenomegaly. Adrenal glands: Adrenal hypertrophy Kidneys and ureters: Large right retroperitoneal hematoma posterior to the right kidney extending from the diaphragmatic region inferiorly to the right pelvis measuring approximately 12 cm transversely, 11 cm in the anterior-posterior dimension and approximately 20-25 cm in the craniocaudal dimension. This extends inferiorly about the water gas operator internus muscle/right pelvis. No renal calcifications, hydronephrosis, or hydroureter. Small low-attenuation lesion subcentimeter in size midpole right kidney. Too small to characterize. Likely cyst. Hounsfield units of approximately 4. 2 cm cyst lower pole left kidney. Mild perinephric stranding on the left superiorly. Stomach and bowel: Diverticulosis without evidence of diverticulitis. Air and stool-filled large bowel. No obstruction. Appendix: What is believed to be the appendix is normal in appearance. Nevertheless, there is no discrete evidence of appendicitis. Intraperitoneal space: Unremarkable. No free air. No significant fluid collection. Vasculature: Unremarkable. No abdominal aortic aneurysm. Lymph nodes: Unremarkable. No enlarged lymph nodes. Urinary bladder: Gregory catheter is present within a nondistended bladder. Reproductive: Heavily calcified fibroid uterus. Bones/joints: Severe degenerative changes right greater than left hip. No pelvic fracture. Compression fracture anterior and middle columns of T12. Likely chronic. No paravertebral edema. Soft tissues: Periumbilical ventral hernia. Small. CT/[place] [id number] IMPRESSION: 1. Aneurysmal dilatation of the ascending aorta maximal diameter of 5.2 cm. 2. Minimal bronchial wall thickening. No focal consolidation. 3. 2 mm nodule right lower lobe. Fleischner Society guidelines for pulmonary nodule follow up Low risk patients IMPRESSION: 1. Large right retroperitoneal hematoma posterior to the right kidney extending from the diaphragmatic region inferiorly to the right pelvis measuring approximately 12 cm transversely, 11 cm in the anterior-posterior dimension and approximately 20-25 cm in the craniocaudal dimension. This extends inferiorly about the water gas operator internus muscle/right pelvis. Diameter is most pronounced in the lower abdomen/pelvic region. Mass effect upon the urinary bladder. Hematoma within the rectus muscles left greater than right that on the right measuring approximately 3 cm in the anterior-posterior dimension and approximately 10 cm transversely. Small on the left. 2. Periumbilical ventral hernia. Small. 3. No renal calcifications, hydronephrosis, or hydroureter. 4. Heavily calcified fibroid uterus. 5. Severe degenerative changes right greater than left hip. No pelvic fracture. 6. Compression fracture anterior and middle columns of T12. Likely chronic. No paravertebral edema. COMMENTS: Consistent with the [employer]'s Incidental Findings Committee white paper (J Am Yareli Radiol 2018): Any incidental renal lesion less than 1 cm or classified as too small to characterize, or any incidental cystic renal lesion characterized as simple-appearing, is likely benign. No follow-up imaging is recommended for these lesions per consensus recommendations based on imaging criteria.
--- NOTE | 2024-12-15 00:11 | PM.ACPR ---
Acute Procedures Central Line Placement: Right Femoral: Time out performed: Yes Patient placed on monitor/pulse ox: Yes MD prep: mask, gown and gloves Central line prep: Povidone-Iodine 1%, Chlorhexidine scrub and sterile drapes applied Local anesthesia used: lidocaine 1% Amount of anesthesia used (ml): 5 Ultrasound used for placement: Yes Central line lumen inserted: triple Post procedure: sutured in place, good blood return, all ports aspirated, flushed, capped and sterile dressing applied Post procedure x-ray: tip of catheter in good position Patient tolerated procedure: well and no complications Complications: none Additional comments: This line was placed because it was difficult to get an IV via ultrasound and patient was hypotensive with lactic acid of 14, central line was placed and a rapid response situation patient gave verbal consent as well she was awake and alert, ultrasound-guided central line placement without any complications, Good venous return noticed in all 3lumens, central line is good to be used
--- NOTE | 2024-12-15 00:14 | W.PM.EVENTAC ---
Event Note Event Note: Lactic acid came back at 14, central line has been placed, requested CT abdomen pelvis, broaden antibiotic coverage I do believe this is related to hypotension that patient suffered from secondary to poor IV access and low blood pressure, patient has been afebrile, awake and alert, requested blood culture, heart rate is around 120s
[2024-12-15 00:45] LABS: Basophils % 0.1 %; Lymphocytes # 0.9 10^3/uL (0.8-4.8); Lymphocytes % 8.5 %; Mean Corpuscular HGB Conc 31.3 g/dL (30-55); Mean Corpuscular Hemoglobin 29.9 pg (27-33); Mean Corpuscular Volume 95.8 fl (85-98); Mean Platelet Volume 10.9 fL (7.4-10.4); Monocytes # 0.9 10^3/uL (0.2-0.9); Neutrophils # 8.27 10^3/uL (1.8-7.7); Neutrophils % 80.6 %; Nucleated Red Blood Cells % 0 %; Platelet Count 197 10^3/cmm (157-399); Red Blood Count 3.34 10^6/uL (3.85-5.65); Red Cell Distribution Width 13.4 % (12.1-15.1); White Blood Count 10.25 10^3/uL (3.29-11.43)
[2024-12-15] MEDS: ipratropium-albuterol 3 mL Neb INHALATION ×4 (01:28→20:35)
[2024-12-15] MEDS: piperacillin-tazobactam 3.375 GM in sodium chloride 0.9% (plus) 50 ML IV ×2 (02:58→18:20)
[2024-12-15] MEDS: vancomycin 1,500 MG/300 ML PIGGYBACK 200 MG IV (03:00)
[2024-12-15 04:41] LABS: Basophils % 0.1 %; Hematocrit 29.1 % (36-47); Lymphocytes # 1.6 10^3/uL (0.8-4.8); Lymphocytes % 11.5 %; Mean Corpuscular HGB Conc 31.6 g/dL (30-55); Mean Corpuscular Hemoglobin 30.3 pg (27-33); Mean Corpuscular Volume 95.7 fl (85-98); Mean Platelet Volume 11.4 fL (7.4-10.4); Monocytes # 1.9 10^3/uL (0.2-0.9); Monocytes % 14.3 %; Neutrophils % 72.2 %; Nucleated Red Blood Cells % 0.1 %; Platelet Count 195 10^3/cmm (157-399); Red Blood Count 3.04 10^6/uL (3.85-5.65); Red Cell Distribution Width 13.4 % (12.1-15.1); White Blood Count 13.45 10^3/uL (3.29-11.43)
[2024-12-15 05:05] LABS: Anion Gap 26.7 (5-19); Blood Urea Nitrogen 54 mg/dL (8-23); Calcium 8.1 mg/dL (8.5-10.5); Carbon Dioxide 23 mmol/L (22-29); Chloride 89 mmol/L (98-107); Creatinine Clr Calc Pharmacy 20.5415; Glucose 219 mg/dL (65-115); Magnesium 2.5 mg/dL (1.7-2.3); Osmolality Calculated 301 mOsm/kg (285-295); Potassium 3.7 mmol/L (3.5-5.1); Sodium 135 mmol/L (136-145)
[2024-12-15 05:22] LABS: Lactic Sepsis W/Reflex 7.9 mmol/L (0.5-2.2)
[2024-12-15] MEDS: pantoprazole 40 mg SDV IVP (06:05)
[2024-12-15 06:23] LABS: Reflex Lactate Order REFLEX LACTIC ORDERD
--- NOTE | 2024-12-15 08:19 | USCV_ITS ---
Lelia Mcguire Age: 79 Gender: F : 1945 Exam Date: 12/15/2024 10:09 Ordering Phys: Rosa Tristan MD Technologist: [place] [facility] [place]: [place] BP: / HR: Rhythm: Sinus Technical Quality: Adequate MEASUREMENTS (Male / Female) Normal Values 2D ECHO LV Diastolic Diameter PLAX 4.5 cm 4.2 - 5.9 / 3.9 - 5.3 cm IVS Diastolic Thickness 1.1 cm 0.6 - 1.0 / 0.6 - 0.9 cm IVS Systolic Thickness 1.8 cm LVPW Diastolic Thickness 1.3 cm 0.6 - 1.0 / 0.6 - 0.9 cm LVPW Systolic Thickness 1.9 cm LVOT Diameter 2.1 cm LV Ejection Fraction 2D Teich 69.5 % LV Ejection Fraction MOD 4C 63.2 % LV Ejection Fraction MOD 2C 78.2 % LV Ejection Fraction 2C AL 79.1 % LA Diameter 4.2 cm RA Systolic Volume 4C AL 80.6 ml RA Systolic Volume 4C MOD 82.3 ml Aorta at Sinotubular Diameter 2.9 cm FINDINGS Left Ventricle Normal left ventricular size, systolic function and wall thickness, with no regional wall motion abnormalities. Left ventricular ejection fraction is estimated at 60 %. Right Ventricle Right Atrium Left Atrium Moderately increased left atrial size. Mitral Valve Structurally normal mitral valve. No mitral valve stenosis. Aortic Valve Structurally normal trileaflet aortic valve. No aortic valve stenosis. Tricuspid Valve Pulmonic Valve Pericardium Aorta IVC CONCLUSIONS Limited echo to asses benito Normal left ventricular size, systolic function and wall thickness, with no regional wall motion abnormalities. Left ventricular ejection fraction is estimated at 60 %. Moderately increased left atrial size. There is no pericardial effusion. Michelle Morton MD (Electronically Signed) Final Date: 15 December 2024 15:32 S
--- NOTE | 2024-12-15 08:29 | ECG_ITS ---
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 Measurements Intervals [place] Rate: 85 P: 0 WI: 0 QRS: 54 QRSD: 91 T: -15 QT: 383 QTc: 456 Interpretive Statements ATRIAL FIBRILLATION NONSPECIFIC ST & T-WAVE ABNORMALITY Compared to ECG 12/14/2024 22:09:28 T-wave abnormality now present Ventricular premature complex(es) no longer present Aberrant conduction of supraventricular beat(s) no longer present ST (T wave) deviation no longer present Electronically Signed On 12-15-2024 10:34:28 GROUP EXERCISE CLASS INSTRUCTOR by Nhan Perrin M.D. [email or web address]
[2024-12-15 08:42] LABS: Glucose Point of Care 180 mg/dL (70-110)
[2024-12-15] MEDS: etomidate 20 ML 1 MG (08:51)
[2024-12-15] MEDS: succinylcholine 20 mg/mL SDV 10mL 400 MG (08:51)
[2024-12-15] MEDS: vasopressin 40 UNIT/100 ML PREMIX 6 UNIT IV (08:53)
[2024-12-15 09:05] LABS: ABG PCO2 31.4 mmHg (35-45); ABG PH Result 7.07 (7.35-7.45); Alveolar-Arterial Oxygen Gradi 23.5 mmHg (5-10); Arterial Blood Gas Hematocrit 26.5 % (37-47); Base Excess ABG -19.8 mmol/L (-2.0-2.0); Blood Gas Allen Test Pos; Blood Gas Operator Identificat CAK; Blood Gas Sample Site Femoral, left; Blood Gas Sample Type Arterial; Carboxyhemoglobin 0.4 %THgb (0.4-20.1); HGB O2 Sat 97.9 % (95-100); Methemoglobin 1.4 % (0.4-1.5); Oxygen Device VENT; Oxygen Saturation ABG > 99.1; PO2 FiO2 Ratio Arterial Blood 478; Potassium Level - ABG 5.1 mmol/L (3.5-5.0); Total Hemoglobin 8.6 g/dL (12-16)
[2024-12-15] MEDS: sodium chloride 0.9% 100 mL Bag 50 ML IV (09:10)
[2024-12-15 09:12] LABS: Troponin(5th) Baseline 309 ng/L (0-10)
[2024-12-15] MEDS: tranexamic acid 1,000 MG/100 ML PREMIX 600 MG IV ×2 (09:12→14:50)
--- NOTE | 2024-12-15 09:33 | XR_ITS ---
WS: [id number] Exam: XR chest 1V portable [id number] Date/Time of Exam: 12/15/2024 9:33 AM Reason For Exam: intubation Comparison 12/11/2024. ET tube is in place ending about 3 cm above the yves in good position. The lungs are adequately herman tilated. Cardiac enlargement unchanged. Lungs are clear and fully inflated. The mediastinum is normal in contour. Numerous leads superimpose the chest. XR/XR chest 1V portable [id number] IMPRESSION: 1. ET tube in place ending about 3 cm above the yves. The lungs appear to be adequately ventilated. 2. Cardiac enlargement.
[2024-12-15] MEDS: midazolam hcl 100 MG/100 ML BAG (09:40)
[2024-12-15 09:44] LABS: Lactic Sepsis W/Reflex 13.9 mmol/L (0.5-2.2)
[2024-12-15] MEDS: norepinephrine 4 MG/250 ML BAG 75 MG IV ×2 (09:50→20:02)
[2024-12-15] MEDS: midazolam hcl 100 MG/100 ML BAG IV (10:00)
--- NOTE | 2024-12-15 10:06 | W.ED.GENADLT ---
HPI - General Adult General: Chief complaint: ER Hold Stated complaint: sob Time Seen by Provider: 12/11/24 16:56 History of Present Illness: p Related Data Home Medications Medication Instructions Recorded Confirmed cyanocobalamin (vitamin B-12) 1,000 mcg PO QPM 05/30/21 12/12/24 1,000 mcg tablet (Vitamin B-12) calcium carbonate 500 mg PO QPM 05/20/22 12/12/24 cholecalciferol (vitamin D3) 50 50 mcg PO QPM 05/20/22 12/12/24 mcg (2,000 unit) tablet (Vitamin D3) acetaminophen 650 mg 650 mg PO Q12H 12/12/24 12/12/24 tablet,extended release (Tylenol Arthritis Pain) Previous Rx's Medication Instructions Recorded cetirizine 10 mg tablet 10 mg PO BID PRN allergy symptoms 06/10/23 #180 tabs isosorbide mononitrate 30 mg 30 mg PO DAILY #90 tabs 11/26/23 tablet,extended release 24 hr lisinopril 2.5 mg tablet 2.5 mg PO QAM #90 tabs 12/18/23 furosemide 20 mg tablet See Rx Instructions .Route 01/07/24 .COMPLEX #180 tabs hydrocodone 5 mg-acetaminophen 325 1 tab PO Q8H PRN pain 7 days #20 01/07/24 mg tablet tabs potassium chloride 10 mEq 20 meq (2 x 10 mEq) PO DAILY #180 01/07/24 tablet,extended release tabs rivaroxaban 20 mg tablet (Xarelto) See Rx Instructions .Route 01/07/24 .COMPLEX #90 tabs nitroglycerin 0.4 mg sublingual 0.4 mg sublingual Q5M PRN chest 08/24/24 tablet pain #25 tabs doxycycline hyclate 100 mg capsule 100 mg PO BID 10 days #20 caps 12/11/24 guaifenesin 600 mg tablet, 600 mg PO BID 3 days #6 tabs 12/11/24 extended release 12 hr (Mucinex) prednisone 20 mg tablet 40 mg (2 x 20 mg) PO DAILY 3 days 12/11/24 #6 tabs Allergies Allergy/AdvReac Type Severity Reaction Status Date / Time iodine Allergy Unknown ALGY-Bliste Verified 08/30/24 07:05 r metoprolol Allergy Unknown Unknown Verified 08/30/24 07:05 alcohol Allergy ALGY-Hives Verified 08/30/24 07:05 alfalfa Allergy ALGY-Rash Verified 08/30/24 07:05 aloe vera Allergy ALGY-Bliste Verified 08/30/24 07:05 r atenolol Allergy ALGY-Swell Verified 08/30/24 07:05 Lip/Tongue/Throat bamboo Allergy ALGY-Rash Verified 08/30/24 07:05 barley Allergy ALGY-Rash Verified 08/30/24 07:05 bran Allergy ALGY-Hives Verified 08/30/24 07:05 [place] And Derivatives Allergy ALGY-Hives Verified 08/30/24 07:05 clams Allergy ALGY-Difficulty Verified 08/30/24 07:05 Swallowing crab Allergy Unknown Verified 08/30/24 07:05 crayfish Allergy Unknown Verified 08/30/24 07:05 diphenhydramine Allergy ADR-Itching Verified 08/30/24 07:05 [From Benadryl] epinephrine Allergy ADR/ALGY-Pa Verified 08/30/24 07:05 lpitations grapefruit Allergy Unknown Verified 08/30/24 07:05 grass pollen Allergy ALGY-Rash Verified 08/30/24 07:05 juniper tar Allergy Unknown Verified 08/30/24 07:05 kiwi Allergy ALGY-Hives Verified 08/30/24 07:05 latex Allergy ALGY-Rash Verified 08/30/24 07:05 lavender (Lavandula Allergy ALGY-Rash Verified 08/30/24 07:05 angustifolia) lemon Allergy ALGY-Rash Verified 08/30/24 07:05 lemon oil Allergy ALGY-Rash Verified 08/30/24 07:05 licorice Allergy Unknown Verified 08/30/24 07:05 crow Allergy Unknown Verified 08/30/24 07:05 molasses Allergy Unknown Verified 08/30/24 07:05 mold Allergy ALGY-Rash Verified 08/30/24 07:05 mussels Allergy Unknown Verified 08/30/24 07:05 nut - unspecified Allergy ALGY-Hives Verified 08/30/24 07:05 oats Allergy ALGY-Hives Verified 08/30/24 07:05 octopus Allergy Unknown Verified 08/30/24 07:05 orange Allergy ALGY-Rash Verified 08/30/24 07:05 oyster extract Allergy Unresponsiv Verified 08/30/24 07:05 e passion fruit Allergy Unknown Verified 08/30/24 07:05 scallops Allergy Unknown Verified 08/30/24 07:05 shellfish derived Allergy ALGY-Swell Verified 08/30/24 07:05 Lip/Tongue/Throat shrimp Allergy Unknown Verified 08/30/24 07:05 squid Allergy Unknown Verified 08/30/24 07:05 wheat Allergy ALGY-Hives Verified 08/30/24 07:05 shell fish Allergy Severe ALGY-Swell Uncoded 08/30/24 07:05 Lip/Tongue/Throat abolone Allergy Unknown Uncoded 08/30/24 07:05 anchovie Allergy ALGY-Hives Uncoded 08/30/24 07:05 antibacterial soap Allergy Unknown Uncoded 08/30/24 07:05 berries Allergy ALGY-Hives Uncoded 08/30/24 07:05 carob Allergy Unknown Uncoded 08/30/24 07:05 contrast dye Allergy ALGY-Difficulty Uncoded 08/30/24 07:05 Breathing gold Allergy Unknown Uncoded 08/30/24 07:05 hemp oil Allergy ALGY-Rash Uncoded 08/30/24 07:05 kumquat Allergy Unknown Uncoded 08/30/24 07:05 lobster Allergy Unknown Uncoded 08/30/24 07:05 malt Allergy ALGY-Bliste Uncoded 08/30/24 07:05 r mesquite Allergy Unknown Uncoded 08/30/24 07:05 millet Allergy ALGY-Rash Uncoded 08/30/24 07:05 mink oil Allergy ALGY-Rash Uncoded 08/30/24 07:05 mola Allergy Unknown Uncoded 08/30/24 07:05 MSG Allergy Unknown Uncoded 08/30/24 07:05 prawn Allergy Unknown Uncoded 08/30/24 07:05 rye Allergy ALGY-Rash Uncoded 08/30/24 07:05 snail Allergy Unknown Uncoded 08/30/24 07:05 sorghum Allergy Unknown Uncoded 08/30/24 07:05 tangello Allergy Unresponsiv Uncoded 08/30/24 07:05 e tangerine Allergy Unknown Uncoded 08/30/24 07:05 worcestershire sauce AdvReac Severe ALGY-Swell Uncoded 10/15/24 07:05 Lip/Tongue/Throat PFSH ED [facility]: Medical History (Updated 12/15/24 @ 10:08 by Dianne Salmeron MD) Asthma Osteoarthritis of left knee Statin intolerance Osteoarthritis of right hip severe on imaging; Hx of deep venous thrombosis right leg Chronic venous insufficiency of lower extremity R leg; hx of DVT this leg Disability of walking Aortic stenosis Osteoporosis didn't tolerate oral bisphosphonates; did prolia for 5 yrs; she doesn't want to do any more DEXAs Bradycardia sees cardio [place] Carotid atherosclerosis bilateral mild on US 04/08 Chronic atrial fibrillation Chest pain Symptomatic bradycardia Anticoagulation adequate with anticoagulant therapy COPD (chronic obstructive pulmonary disease) Pulmonary arterial hypertension Sleep apnea not using CPAP; sleeps in recliner Hypertension CAD (coronary artery disease) seeing cardio in [place] Surgical History Status post laparoscopic cholecystectomy (03/06/21) H/O left knee surgery arthroscopic H/O right knee surgery arthroscopic H/O tubal ligation History of colonoscopy with polypectomy 2017 History of esophagogastroduodenoscopy (EGD) Family History Mother Diabetes CAD (coronary artery disease) Social History Smoking and tobacco/nicotine status: never used tobacco/nicotine Second hand smoke exposure: No Alcohol intake: never Substance/Drug Use: never Lives independently: Yes Household members: none Marital status: / Number of children: 3 Highest education level completed: Some College, No Degree Current occupational status: 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 Do you think of yourself as: Straight/Heterosexual Current gender identity: Female Female Reproductive History: Spontaneous abortions: No Procedures Intubation Time out performed: Yes sedative: Etomidate Mg Given: 20 paralytic: Succinylcholine Mg Given: 150 Laryngoscope: Letitia ET Tube Size: 8 ET Tube Uncuffed: No Tube Secured Depth (cm): 25 Tube Secured Location: teeth Tube Placement Confirmation: visualized tube passing through cords, equal breath sounds bilaterally and no breath sounds over epigastrium Patient Tolerated Procedure: well Intubation Complications: none Course Vital Signs: Vital signs: Vital Signs Temperature 97.6 F 12/15/24 04:15 Pulse Rate 80 12/15/24 09:30 Respiratory Rate 20 H 12/15/24 09:30 Blood Pressure 89/61 12/15/24 06:15 Pulse Oximetry 100 12/15/24 09:30 Oxygen Delivery Me thod Mechanical Ventil ation 12/15/24 09:30 Oxygen Flow Rate 2 12/15/24 04:30 Fraction of Inspir ed Oxygen 50 12/15/24 09:30 MDM - General Adult Medical Decision Making I was called to ICU to intubate patient. I did intubate the patient tolerated procedure well Lab Data 12/15/24 04:04 12/15/24 04:[address] 12/11/24 22:39 IMPRESSION: 1. No acute cardiopulmonary disease. 2. Moderate to marked cardiomegaly. 3. Ectasia of the ascending thoracic aorta measuring up to 4.3 cm. Pelvis X-Ray 12/14/24 23:45 IMPRESSION: auto claim representative as above. Chest/Abdomen/Pelvis CT 12/15/24 00:10 IMPRESSION: 1. Aneurysmal dilatation of the ascending aorta maximal diameter of 5.2 cm. 2. Minimal bronchial wall thickening. No focal consolidation. 3. 2 mm nodule right lower lobe. Fleischner Society guidelines for pulmonary nodule follow up Low risk patients IMPRESSION: 1. Large right retroperitoneal hematoma posterior to the right kidney extending from the diaphragmatic region inferiorly to the right pelvis measuring approximately 12 cm transversely, 11 cm in the anterior-posterior dimension and approximately 20-25 cm in the craniocaudal dimension. This extends inferiorly about the lime plant operator internus muscle/right pelvis. Diameter is most pronounced in the lower abdomen/pelvic region. Mass effect upon the urinary bladder. Hematoma within the rectus muscles left greater than right that on the right measuring approximately 3 cm in the anterior-posterior dimension and approximately 10 cm transversely. Small on the left. 2. Periumbilical ventral hernia. Small. 3. No renal calcifications, hydronephrosis, or hydroureter. 4. Heavily calcified fibroid uterus. 5. Severe degenerative changes right greater than left hip. No pelvic fracture. 6. Compression fracture anterior and middle columns of T12. Likely chronic. No paravertebral edema. COMMENTS: Consistent with the [employer]'s Incidental Findings Committee white paper (J Am Yareli Radiol 2018): Any incidental renal lesion less than 1 cm or classified as too small to characterize, or any incidental cystic renal lesion characterized as simple-appearing, is likely benign. No follow-up imaging is recommended for these lesions per consensus recommendations based on imaging criteria. ADDENDUM: 12/15/24 0917 The above was read and discussed at approximately 9:14 AM CUSTOMER SUCCESS REPRESENTATIVE on12/15/2024 with the attending physician , Dr. Tristan. Chest X-Ray 12/15/24 09:33 IMPRESSION: 1. ET tube in place ending about 3 cm above the yves. The lungs appear to be adequately ventilated. 2. Cardiac enlargement. Laboratory Results WBC 6.28 10^3/uL (3.29-11.43) 12/11/24 17:35 RBC 4.79 10^6/uL (3.85-5.65) 12/11/24 17:35 Hgb 14.30 g/dL (11.27-16.99) 12/11/24 17:35 Hct 44.5 % (36-47) 12/11/24 17:35 MCV 92.9 fl (85-98) 12/11/24 17:35 MCH 29.9 pg (27-33) 12/11/24 17:35 MCHC 32.1 g/dL (30-55) 12/11/24 17:35 RDW 13.5 % (12.1-15.1) 12/11/24 17:35 Plt Count 124 10^3/cmm (157-399) L 12/11/24 17:35 MPV 10.8 fL (7.4-10.4) H 12/11/24 17:35 Neut % (Auto) 72.2 % 12/11/24 17:35 Lymph % (Auto) 13.7 % 12/11/24 17:35 [place] % (Auto) 11.6 % 12/11/24 17:35 Eos % (Auto) 1.4 % 12/11/24 17:35 Baso % (Auto) 0.6 % 12/11/24 17:35 Neut # (Auto) 4.53 10^3/uL (1.8-7.7) 12/11/24 17:35 Lymph # (Auto) 0.9 10^3/uL (0.8-4.8) 12/11/24 17:35 [place] # (Auto) 0.7 10^3/uL (0.2-0.9) 12/11/24 17:35 Eos # (Auto) 0.1 10^3/uL (0.0-0.8) 12/11/24 17:35 Baso # (Auto) 0.0 10^3/uL (0.0-0.1) 12/11/24 17:35 Nucleated RBC % (auto) 0 % 12/11/24 17:35 Nucleated RBCs # 0.0 /100WBC 12/11/24 17:35 PT 14.20 SECONDS (12.1-14.9) 12/11/24 20:32 INR 1.02 (0.8-1.2) 12/11/24 20:32 APTT 31.4 SECONDS (23.9-36.7) 12/11/24 20:32 Sodium 139 mmol/L (136-145) 12/11/24 17:35 Potassium 3.8 mmol/L (3.5-5.1) 12/11/24 17:35 Chloride 102 mmol/L (98-107) 12/11/24 17:35 Carbon Dioxide 26 mmol/L (22-29) 12/11/24 17:35 Anion Gap 14.8 (5-19) 12/11/24 17:35 BUN 15 mg/dL (8-23) 12/11/24 17:35 Creatinine 0.5 mg/dL (0.5-0.9) 12/11/24 17:35 GFR Calculation Not Reportable 12/11/24 17:35 Glucose 112 mg/dL (65-115) 12/11/24 17:35 Calculated Osmolality 290 mOsm/kg (285-295) 12/11/24 17:35 Calcium 9.5 mg/dL (8.5-10.5) 12/11/24 17:35 Magnesium 1.9 mg/dL (1.7-2.3) 12/11/24 17:35 NT-Pro-B Natriuret Pep 1508 pg/mL (0-450) H 12/11/24 17:35 Coronavirus (PCR) Negative (Negative) 12/11/24 17:40 Influenza A (PCR) Negative (Negative) 12/11/24 17:40 Influenza Type B (PCR) Negative (Negative) 12/11/24 17:40 RSV (PCR) Negative (Negative) 12/11/24 17:40 All radiology interpretation(s) finalized by discharge Discharge Plan Discharge Patient Disposition: Admitted As Inpatient Admit Provider: Cally Hardy Clinical Impression: Respiratory failure Condition: Stable Discharge Diet: Usual diet Discharge Activity: Increase activity as tolerated Coding Level of Care Code ED Physicist Acoustics for Isabel Ulloa
--- NOTE | 2024-12-15 10:11 | XR_ITS ---
WS: [id number] Exam: XR chest 1V portable [id number] Date/Time of Exam: 12/15/2024 10:18 AM Reason For Exam: OG tube placement Compared to earlier exam on the same day at 9:44 a.m. Oral gastric tube has been placed and appears to end in the body the stomach in good position. The castillo ngs remain clear. The heart is enlarged but unchanged in size. The lung apices are out of the field-o f-view. XR/XR chest 1V portable [id number] IMPRESSION: 1. Orogastric tube ending in the body the stomach in good position. The chest i s otherwise unchanged.
--- NOTE | 2024-12-15 10:29 | ECG_ITS ---
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 Measurements Intervals [place] Rate: 79 P: 0 OR: 0 QRS: 67 QRSD: 82 T: -2 QT: 408 QTc: 470 Interpretive Statements ATRIAL FIBRILLATION WITH ABERRANT CONDUCTION OR VENTRICULAR PREMATURE COMPLEXES NONSPECIFIC ST & T-WAVE ABNORMALITY Compared to ECG 12/15/2024 09:10:14 Ventricular premature complex(es) now present Aberrant conduction of supraventricular beat(s) now present T-wave abnormality still present Electronically Signed On 12-17-2024 13:38:34 AVIONICS SYSTEMS TECHNICIAN by Nhan Perrin M.D. [id number]
[2024-12-15 10:44] LABS: ABG PCO2 35.6 mmHg (35-45); ABG PH Result 7.19 (7.35-7.45); Alveolar-Arterial Oxygen Gradi 27.9 mmHg (5-10); Arterial Blood Gas Hematocrit 30.8 % (37-47); Base Excess ABG -13.6 mmol/L (-2.0-2.0); Blood Gas Allen Test Pos; Blood Gas Operator Identificat CAK; Blood Gas Sample Site Brachial, left; Blood Gas Sample Type Arterial; Blood Gas Tidal Volume 0.45; HCO3 ABG 13.6 mmol/L (22-26); HGB O2 Sat 94.1 % (95-100); Methemoglobin 1.2 % (0.4-1.5); Oxygen Device VENT; Oxygen Saturation ABG 96.3; PO2 ABG 94.6 mmHg (80.0-100.0); PO2 FiO2 Ratio Arterial Blood 189; Potassium Level - ABG 3.7 mmol/L (3.5-5.0)
[2024-12-15 11:13] LABS: Reflex Lactate Order REFLEX LACTIC ORDERD
[2024-12-15] MEDS: propofol 1,000 MG/100 ML INJ 5.49 MG IV (11:20)
[2024-12-15] MEDS: sodium chloride 0.9% (100 ml) 100 ML (11:21)
[2024-12-15 11:30] LABS: Hematocrit 33.5 % (36-47); Mean Corpuscular HGB Conc 31.3 g/dL (30-55); Mean Corpuscular Hemoglobin 29.2 pg (27-33); Mean Corpuscular Volume 93.1 fl (85-98); Mean Platelet Volume 11.4 fL (7.4-10.4); Platelet Count 132 10^3/cmm (157-399); Red Cell Distribution Width 14.6 % (12.1-15.1); White Blood Count 23.99 10^3/uL (3.29-11.43)
--- NOTE | 2024-12-15 11:49 | PHA.VACGOAL ---
Vancomycin Goal - Goal Vancomycin Goal:: 15-20 mg/L Vancomycin Indication:: Pneumonia - Therapy Day of therpy:: Day []of [] . Actual body weight (kg): 201 lb 11.567 oz - Data Labs: WBC 13.45 10^3/uL (3.29-11.43) H 12/15/24 04:04 RBC 3.04 10^6/uL (3.85-5.65) L 12/15/24 04:04 Hgb 9.20 g/dL (11.27-16.99) L 12/15/24 04:04 Hct 29.1 % (36-47) L 12/15/24 04:04 MCV 95.7 fl (85-98) 12/15/24 04:04 MCH 30.3 pg (27-33) 12/15/24 04:04 MCHC 31.6 g/dL (30-55) 12/15/24 04:04 RDW 13.4 % (12.1-15.1) 12/15/24 04:04 Sodium 135 mmol/L (136-145) L 12/15/24 04:04 Potassium 3.7 mmol/L (3.5-5.1) 12/15/24 04:04 Chloride 89 mmol/L (98-107) L 12/15/24 04:04 Carbon Dioxide 23 mmol/L (22-29) 12/15/24 04:04 Anion Gap 26.7 (5-19) H 12/15/24 04:04 BUN 54 mg/dL (8-23) H 12/15/24 04:04 Creatinine 2.5 mg/dL (0.5-0.9) H 12/15/24 04:04 GFR Calculation Not Reportable 12/15/24 04:04 Treatment plan:: new consult Regimen:: PT Received 1500 mg dose crcl < 30 pulse dose; will check vancomycin level 12/16 AM LAB to determine next dose
[2024-12-15 11:51] LABS: Slide Review Slide Review Perform
[2024-12-15 11:52] LABS: Absolute Neutrophil 17.5 10^3/cmm (1.4-6.5); Absolute Segmented Neutrophil 14.6 10/cmm (1.6-7.1); Band Neutrophils Absolute 2.9 10^3/cmm (0.0-1.2); Eosinophils 0 %; Lymphocytes 14 %; Lymphocytes Absolute 3.6 10^3/cmm (1.2-3.4); Monocytes Absolute 1.2 10^3/cmm (0.1-0.6); Platelet Estimate Normal (Normal); Segmented Neutrophils 61 %; Total Cells Counted 100 (0-100)
[2024-12-15 11:55] LABS: Troponin 5 2HR 236.7 ng/L (0-10); Troponin 5 2HR Delta -72.3 ABS# (0-10)
[2024-12-15] MEDS: norepinephrine 4 MG/250 ML BAG 71.25 MG IV (12:10)
[2024-12-15 12:55] LABS: Lactic Acid level (Lactate) 9.3 mmol/L (0.5-2.2)
[2024-12-15] MEDS: hydrocortisone 100 mg/2 mL SDV IVP ×2 (13:07→15:11)
--- NOTE | 2024-12-15 13:11 | PC.OT ---
OT TREATMENT HELD PATIENT HAS BEEN INTUBATED.
--- NOTE | 2024-12-15 14:17 | PC.NURSE ---
[address] via bed with O2 at 2l n/c. Awake and alert, c/o of not being able to reach phone and water when table not next to bed. In CT, easy transfer with 4 assisting. Procedure probable took less than 5 minutes on the table. Back to bed and switched oxygen back to portable tank at 2l n/c. Noted a little short of breath when back in bed. raise Raised head of bed up before bringing back to ICU, said she's a little short of breath, when I ask if from lying flat or the movements, she said she thought both. In room connected to all monitors and wall O2, sat at 96%. She ask me to call her daughter, Allyssa, in [place] and let her know she is the hospital. So I went and spoke with Allyssa.
--- NOTE | 2024-12-15 14:26 | PC.NURSE ---
0830 RT noted O2 SAt in 60's, placed on bipap. Sat not coming up, I called dr Tristan told of status, she says she will be down. She arrived shortly, called to intubate.
[2024-12-15] MEDS: protamine 10 mg/mL SDV 5 mL 50 MG IVP (14:44)
--- NOTE | 2024-12-15 14:54 | P.CONIM_ITS ---
Providers/Reason For Consult 2 Consulting Physician/Specialty*: General Surgery Reason for Consult*: Retroperitoneal/rectus hematoma Attending Physician: Rosa Tristan MD Primary Care Provider: Awa Frederick MD History of Present Illness History of Present Illness Lelia Mcguire is a 79 year old female who was admitted with a COPD exacerbation and over the last 24 hours as available acute the compensation and a CT scan showed evidence of a large right-sided retroperitoneal hematoma as well as hematomas on the rectus sheath. I was consulted for this finding. In the moment of this consultation patient is intubated sedated receiving 2 different pressors and has received resuscitation with blood products as well as reversal of the anticoagulation with protamine and TXA Review of Systems 2 General: Reports: ROS unobtainable due to medical condition Medications/Allergies Home Medications Medication Instructions Recorded Confirmed Last Taken Type cyanocobalamin (vitamin B-12) 1,000 mcg PO QPM 05/30/21 12/12/24 08/21/22 History 1,000 mcg tablet (Vitamin B-12) calcium carbonate 500 mg PO QPM 05/20/22 12/12/24 08/21/22 History cholecalciferol (vitamin D3) 50 50 mcg PO QPM 05/20/22 12/12/24 08/21/22 History mcg (2,000 unit) tablet (Vitamin D3) cetirizine 10 mg tablet 10 mg PO BID PRN allergy symptoms 06/10/23 12/12/24 Unknown Rx #180 tabs isosorbide mononitrate 30 mg 30 mg PO DAILY #90 tabs 11/26/23 12/12/24 Unknown Rx tablet,extended release 24 hr lisinopril 2.5 mg tablet 2.5 mg PO QAM #90 tabs 12/18/23 12/12/24 Unknown Rx furosemide 20 mg tablet See Rx Instructions .Route 01/07/24 12/12/24 Unknown Rx .COMPLEX #180 tabs hydrocodone 5 mg-acetaminophen 325 1 tab PO Q8H PRN pain 7 days #20 01/07/24 12/12/24 Unknown Rx mg tablet tabs potassium chloride 10 mEq 20 meq (2 x 10 mEq) PO DAILY #180 01/07/24 12/12/24 Unknown Rx tablet,extended release tabs rivaroxaban 20 mg tablet (Xarelto) See Rx Instructions .Route 01/07/24 12/12/24 Unknown Rx .COMPLEX #90 tabs nitroglycerin 0.4 mg sublingual 0.4 mg sublingual Q5M PRN chest 08/24/24 12/12/24 Unknown Rx tablet pain #25 tabs doxycycline hyclate 100 mg capsule 100 mg PO BID 10 days #20 caps 12/11/24 Unknown Rx guaifenesin 600 mg tablet, 600 mg PO BID 3 days #6 tabs 12/11/24 Unknown Rx extended release 12 hr (Mucinex) prednisone 20 mg tablet 40 mg (2 x 20 mg) PO DAILY 3 days 12/11/24 Unknown Rx #6 tabs acetaminophen 650 mg 650 mg PO Q12H 12/12/24 12/12/24 Unknown History tablet,extended release (Tylenol Arthritis Pain) Allergies Allergy/AdvReac Type Severity Reaction Status Date / Time iodine Allergy Unknown ALGY-Bliste Verified 08/30/24 07:05 r metoprolol Allergy Unknown Unknown Verified 08/30/24 07:05 alcohol Allergy ALGY-Hives Verified 08/30/24 07:05 alfalfa Allergy ALGY-Rash Verified 08/30/24 07:05 aloe vera Allergy ALGY-Bliste Verified 08/30/24 07:05 r atenolol Allergy ALGY-Swell Verified 08/30/24 07:05 Lip/Tongue/Throat bamboo Allergy ALGY-Rash Verified 08/30/24 07:05 barley Allergy ALGY-Rash Verified 08/30/24 07:05 bran Allergy ALGY-Hives Verified 08/30/24 07:05 Rich And Derivatives Allergy ALGY-Hives Verified 08/30/24 07:05 clams Allergy ALGY-Difficulty Verified 08/30/24 07:05 Swallowing crab Allergy Unknown Verified 08/30/24 07:05 crayfish Allergy Unknown Verified 08/30/24 07:05 diphenhydramine Allergy ADR-Itching Verified 08/30/24 07:05 [From Benadryl] epinephrine Allergy ADR/ALGY-Pa Verified 08/30/24 07:05 lpitations grapefruit Allergy Unknown Verified 08/30/24 07:05 grass pollen Allergy ALGY-Rash Verified 08/30/24 07:05 juniper tar Allergy Unknown Verified 08/30/24 07:05 kiwi Allergy ALGY-Hives Verified 08/30/24 07:05 latex Allergy ALGY-Rash Verified 08/30/24 07:05 lavender (Lavandula Allergy ALGY-Rash Verified 08/30/24 07:05 angustifolia) lemon Allergy ALGY-Rash Verified 08/30/24 07:05 lemon oil Allergy ALGY-Rash Verified 08/30/24 07:05 licorice Allergy Unknown Verified 08/30/24 07:05 lac vieux Allergy Unknown Verified 08/30/24 07:05 molasses Allergy Unknown Verified 08/30/24 07:05 mold Allergy ALGY-Rash Verified 08/30/24 07:05 mussels Allergy Unknown Verified 08/30/24 07:05 nut - unspecified Allergy ALGY-Hives Verified 08/30/24 07:05 oats Allergy ALGY-Hives Verified 08/30/24 07:05 octopus Allergy Unknown Verified 08/30/24 07:05 orange Allergy ALGY-Rash Verified 08/30/24 07:05 oyster extract Allergy Unresponsiv Verified 08/30/24 07:05 e passion fruit Allergy Unknown Verified 08/30/24 07:05 scallops Allergy Unknown Verified 08/30/24 07:05 shellfish derived Allergy ALGY-Swell Verified 08/30/24 07:05 Lip/Tongue/Throat shrimp Allergy Unknown Verified 08/30/24 07:05 squid Allergy Unknown Verified 08/30/24 07:05 wheat Allergy ALGY-Hives Verified 08/30/24 07:05 shell fish Allergy Severe ALGY-Swell Uncoded 08/30/24 07:05 Lip/Tongue/Throat abolone Allergy Unknown Uncoded 08/30/24 07:05 anchovie Allergy ALGY-Hives Uncoded 08/30/24 07:05 antibacterial soap Allergy Unknown Uncoded 08/30/24 07:05 berries Allergy ALGY-Hives Uncoded 08/30/24 07:05 carob Allergy Unknown Uncoded 08/30/24 07:05 contrast dye Allergy ALGY-Difficulty Uncoded 08/30/24 07:05 Breathing gold Allergy Unknown Uncoded 08/30/24 07:05 hemp oil Allergy ALGY-Rash Uncoded 08/30/24 07:05 kumquat Allergy Unknown Uncoded 08/30/24 07:05 lobster Allergy Unknown Uncoded 08/30/24 07:05 malt Allergy ALGY-Bliste Uncoded 08/30/24 07:05 r mesquite Allergy Unknown Uncoded 08/30/24 07:05 millet Allergy ALGY-Rash Uncoded 08/30/24 07:05 mink oil Allergy ALGY-Rash Uncoded 08/30/24 07:05 mola Allergy Unknown Uncoded 08/30/24 07:05 MSG Allergy Unknown Uncoded 08/30/24 07:05 prawn Allergy Unknown Uncoded 08/30/24 07:05 rye Allergy ALGY-Rash Uncoded 08/30/24 07:05 snail Allergy Unknown Uncoded 08/30/24 07:05 sorghum Allergy Unknown Uncoded 08/30/24 07:05 tangello Allergy Unresponsiv Uncoded 08/30/24 07:05 e tangerine Allergy Unknown Uncoded 08/30/24 07:05 [facility] sauce AdvReac Severe ALGY-Swell Uncoded 08/30/24 07:05 Lip/Tongue/Throat Current Medications Generic Name Dose Route Start Last Admin Trade Name Freq PRN Reason Stop Dose Admin Albuterol/Ipratropium 3 ml 12/12/24 02:00 12/15/24 13:13 Ipratropium-Albuterol 3 Ml Neb INHALATION 3 ml Q6H.RESP RAPHAEL Administration Furosemide 40 mg 12/12/24 08:00 12/12/24 08:51 Furosemide 40 Mg Tablet PO 40 mg DAILY@0800 RAPHAEL Administration Hydrocortisone Sodium Succinate 100 mg 12/15/24 09:00 12/15/24 13:07 Hydrocortisone 100 Mg/2 Ml Sdv IVP 12/15/24 15:01 100 mg TID RAPHAEL Administration Amiodarone HCl/Dextrose 360 mg in 200 mls @ 0 mls/hr 12/14/24 22:15 12/15/24 13:59 Nexterone IV 0.5 mg/min .Q0M RAPHAEL 16.67 mls/hr Titration Protocol Per Protocol Norepinephrine Bitartrate 4 mg in 250 mls @ 0 mls/hr 12/14/24 22:30 12/15/24 14:39 Levophed IV 15 mcg/min .Q0M RAPHAEL 56.25 mls/hr Titration Protocol Per Protocol Piperacillin Sod/Tazobactam 50 mls @ 12.5 mls/hr 12/15/24 02:00 12/15/24 02:58 Sod 3.375 gm/ Sodium Chloride IV 12.5 mls/hr Q8H RAPHAEL Administration Vancomycin HCl 1,500 mg in 300 mls @ 200 mls/hr 12/15/24 02:00 12/15/24 06:30 Vancocin IV Infused Q48H RAPHAEL Infusion Vasopressin 40 unit in 100 mls @ 0 mls/hr 12/15/24 09:00 12/15/24 10:12 Vasostrict IV 0.03 unit/min .Q0M RAPHAEL 4.5 mls/hr Titration Protocol Per Protocol Propofol 1,000 mg in 100 mls @ 0 mls/hr 12/15/24 09:00 12/15/24 13:47 Diprivan IV 10 mcg/kg/min .Q0M RAPHAEL 5.49 mls/hr Titration Protocol Per Protocol Oxycodone/Acetaminophen 1 tab 12/11/24 23:05 12/14/24 17:51 Oxycodone-Apap 5-325 Mg Tablet PO 1 tab Q4H PRN Administration moderate pain Pantoprazole Sodium 40 mg 12/12/24 07:00 12/15/24 06:05 Pantoprazole 40 Mg Sdv IVP 40 mg ACBREAKFAST RAPHAEL Administration Senna 17.2 mg 12/12/24 09:00 12/15/24 11:27 Sennosides 8.6 Mg Tablet PO Not Given DAILY RAPHAEL Sodium Chloride 50 ml 12/15/24 08:56 12/15/24 09:10 Sodium Chloride 0.9% 100 Ml Bag IV 12/16/24 08:56 50 ml PRN PRN Administration Blood transfusion prime and flush PFSH Acute 2 PFSH: Medical History (Updated 12/15/24 @ 15:00 by Dc Gates MD) Asthma Osteoarthritis of left knee Statin intolerance Osteoarthritis of right hip severe on imaging; Hx of deep venous thrombosis right leg Chronic venous insufficiency of lower extremity R leg; hx of DVT this leg Disability of walking Aortic stenosis Osteoporosis didn't tolerate oral bisphosphonates; did prolia for 5 yrs; she doesn't want to do any more DEXAs Bradycardia sees cardio [place] Carotid atherosclerosis bilateral mild on US 04/08 Chronic atrial fibrillation Chest pain Symptomatic bradycardia Anticoagulation adequate with anticoagulant therapy COPD (chronic obstructive pulmonary disease) Pulmonary arterial hypertension Sleep apnea not using CPAP; sleeps in recliner Hypertension CAD (coronary artery disease) seeing cardio [place] Surgical History Status post laparoscopic cholecystectomy (03/06/21) H/O left knee surgery arthroscopic H/O right knee surgery arthroscopic H/O tubal ligation History of colonoscopy with polypectomy 2017 History of esophagogastroduodenoscopy (EGD) Family History Mother Diabetes CAD (coronary artery disease) Social History Smoking and tobacco/nicotine status: never used tobacco/nicotine Second hand smoke exposure: No Alcohol intake: never Substance/Drug Use: never Lives independently: Yes Household members: none Marital status: / Number of children: 3 Highest education level completed: Some College, No Degree Current occupational status: 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 Do you think of yourself as: Straight/Heterosexual Current gender identity: Female Female Reproductive History: Spontaneous abortions: No Vitals/I&O/Wt Last Vital Signs Temp 97.8 F 12/15/24 14:13 Pulse 87 12/15/24 14:13 Resp 24 H 12/15/24 14:13 BP 123/65 12/15/24 14:13 Pulse Ox 96 12/15/24 14:13 O2 Del Method Mechanical Ventilation 12/15/24 13:15 O2 Flow Rate 2 12/15/24 04:30 FiO2 40 12/15/24 13:15 12/14/24 12/15/24 12/15/24 22:59 06:59 14:59 Intake Total 1420.715 / 2400.715 1771.109 / 1771.109 Output Total 800 / 800 Balance -800 / 180 1420.715 / 4200.836 8347.109 / 1771.109 Weight last 48 hrs Weight 201 lb 11.567 oz Weight 198 lb 3.2 oz Physical Exam 2 GI: OTHER: There is induration in the right hemiabdomen consistent with a rectus sheath hematoma. Urinary Catheter Management: Gregory: Cath Placed During This Visit: yes Reason for Continuing Indwelling Catheter: Accurate Measurement of Urinary Output in Critically Ill Patients Urinary Catheter Date of Insertion: 12/14/24 Urinary Catheter Time of Insertion: 22:45 Data 12/15/24 11:11 12/15/24 04:04 Micro: Microbiology 12/15/24 09:55 Gram Stain - Final Sputum - Endotracheal Tube Aspirate 12/15/24 00:39 Blood Culture - Preliminary Blood SPECIMEN COLLECTED 12/15/24 00:34 Blood Culture - Preliminary Blood SPECIMEN COLLECTED A&P Assessment and plan (1) Nontraumatic retroperitoneal hematoma: (2) Rectus sheath hematoma: Plan This is a 79-year-old female clinically ill patient with COPD and enlarged retroperitoneal and rectus sheath hematoma. I Reviewed the imaging, there is a large collection in the retroperitoneum in the right and also rectus sheath hematoma some bright on left side. With the patient history of COPD exacerbation anticoagulation I think the most likely cause of these hematomas is bleeding from the inferior epigastric artery creating her large rectus sheath hematoma that has dissected into the right intraperitoneal and below the arcuate line. The management of this kind of hematoma is initially supportive in nature with resuscitation, blood products and reversal of the coagulopathy that has been already done by medical team but in addition to the due to patient clinical status she most likely will benefit from IR evaluation and embolization of the inferior epigastric arteries to prevent continuous bleeding or rebleeding. There is no role for surgical intervention in the management of this kind of hematomas as any type of intervention can cause sudden decompensation due to the compression of a contained hematoma and a clear identification of the bleeding point is not feasible with surgery and can lead to the of the patient upon exploration. I have discussed the findings with the medical team, they agree with the assessment they have been in contact with higher level of care for IR evaluation. Patient is critically ill but at the moment stable in the case of need for transfer. Coding Level of Care Code 87959 Diagnoses Nontraumatic retroperitoneal hematoma K68.3 Rectus sheath hematoma S30.1XXA
[2024-12-15 15:05] LABS: Base Excess VBG -7.4 mmol/L (-3.0-3.0); Blood Gas Operator Identificat CAK; Blood Gas Sample Site CEN.LINE; Blood Gas Sample Type Venous; HCO3 VBG 19.1 mmol/L (24-28); Oxygen Device VENT; PCO2 VBG 41.3 mmHg (41-51); PO2 VBG 35.6 mmHg (25-40); pH VBG 7.27 (7.32-7.42)
--- NOTE | 2024-12-15 15:09 | ECG_ITS ---
[employer] Test Date: 2024-12-15 Pat Name: Lelia Mcguire Department: Room: [facility] Gender: Female Counter Intelligence Agent: QUEENIE: 1945 Requested By: Rosa Tristan Order Number: [id number] Khushbu MD: Nhan Perrin M.D. Measurements Intervals [place] Rate: 80 P: 0 ME: 0 QRS: 68 QRSD: 82 T: -28 QT: 380 QTc: 439 Interpretive Statements ATRIAL FIBRILLATION WITH ABERRANT CONDUCTION OR VENTRICULAR PREMATURE COMPLEXES NONSPECIFIC T-WAVE ABNORMALITY Compared to ECG 12/15/2024 10:27:55 No significant changes Electronically Signed On 12-17-2024 13:37:34 STACK YIELD ENGINEER by Nhan Perrin M.D. [id number]
[2024-12-15 15:21] LABS: Basophils % 0.3 %; Eosinophils # 0.1 10^3/uL (0.0-0.8); Eosinophils % 0.8 %; Hematocrit 37.4 % (36-47); Lymphocytes # 1.4 10^3/uL (0.8-4.8); Lymphocytes % 11.5 %; Mean Corpuscular HGB Conc 32.6 g/dL (30-55); Mean Corpuscular Hemoglobin 28.6 pg (27-33); Mean Corpuscular Volume 87.6 fl (85-98); Monocytes # 0.8 10^3/uL (0.2-0.9); Monocytes % 6.8 %; Neutrophils # 9.19 10^3/uL (1.8-7.7); Neutrophils % 77.6 %; Nucleated Red Blood Cells # 0.1 /100WBC; Nucleated Red Blood Cells % 0.5 %; Platelet Count 175 10^3/cmm (157-399); Red Blood Count 4.27 10^6/uL (3.85-5.65); Red Cell Distribution Width 14.8 % (12.1-15.1); White Blood Count 11.85 10^3/uL (3.29-11.43)
[2024-12-15 15:35] LABS: Slide Review Slide Review Perform
[2024-12-15 15:37] LABS: INR 1.62 (0.8-1.2); Partial Thromboplastin Time 31.4 SECONDS (23.9-36.7)
[2024-12-15 15:43] LABS: Albumin Level 2.9 g/dL (3.5-5.2); Alkaline Phosphatase 66 U/L (35-105); Anion Gap 28.7 (5-19); Blood Urea Nitrogen 58 mg/dL (8-23); Calcium 7.1 mg/dL (8.5-10.5); Carbon Dioxide 18 mmol/L (22-29); Chloride 93 mmol/L (98-107); Creatinine Clr Calc Pharmacy 18.5077; Globulin 1.7 g/dL (1.3-4.6); Glucose 134 mg/dL (65-115); Osmolality Calculated 300 mOsm/kg (285-295); Potassium 3.7 mmol/L (3.5-5.1); Sodium 136 mmol/L (136-145); Total Bilirubin 1.6 mg/dL (0.15-1.2); Total Protein 4.6 g/dL (6.6-8.7)
[2024-12-15] MEDS: norepinephrine 4 MG/250 ML BAG 56.25 MG IV (15:50)
[2024-12-15] MEDS: sodium chloride 0.9% 1,000 ML 125 ML IV ×2 (15:51→23:47)
[2024-12-15 15:53] LABS: Lactate (Lactic Acid level) 7.7 mmol/L (0.5-2.2)
[2024-12-15 15:54] LABS: Troponin 5 6HR 293.8 ng/L (0-10); Troponin 5 6HR Delta -15.2 ng/L (0-12)
[2024-12-15 15:55] LABS: Alanine Aminotransferase 1243 U/L (0-33); Aspartate Amino Transferase 1746 U/L (0-32)
[2024-12-15] MEDS: albumin 25 G/100 ML BAG 60 G IV (15:55)
--- NOTE | 2024-12-15 16:20 | PC.NURSE ---
[address] orders for sedation for entubation. Dr Danielle and Azalea at bedside along with RT and multiple nurses. 0855 An additional presser started, saline bolus given per dr orders. 0910 First unit of PRBC started in emergent status. [address] orders
--- NOTE | 2024-12-15 16:24 | PC.NURSE ---
0935 FFP hung per orders 0955 Started Propfol for sedation 1015 2nd unit of FFP hung.
--- NOTE | 2024-12-15 16:26 | PC.NURSE ---
1218 3rd unit of PRBC started. Anesthesia attempted an art line, but unable. 1415 Platelets hung.
--- NOTE | 2024-12-15 16:30 | PC.NURSE ---
1600 Multiple critical labs seen by dr. Tristan and levels lower than previous levels.
--- NOTE | 2024-12-15 17:03 | PM.PN ---
Subjective Subjective: Overnight events as follows: Rapid response was called overnight for hypotension and patient found appended on the toilet seat at the bedside. As per nursing note she was somewhat unresponsive. She was in A-fib with RVR and hypotensive. She was brought down to the ICU immediately and started on an amiodarone drip. Levophed was also started. Due to poor IV access Central line had to be placed overnight by the night hospitalist. CT chest with and pelvis was ordered stat. Secondary to history of heart failure 250 cc normal saline bolus was given overnight. Antibiotics were broadened. Vancomycin and Zosyn was ordered. Towards the morning hours I got a call by nursing staff that patient is hypoxic down to 60s and they had just gotten back from CT. She is not really following commands and is confused. They have placed her on BiPAP. I went to evaluate patient immediately at the bedside. Patient was hypoxic not following commands. Decision made to immediately intubate. ER doctor Dr. Link intubated patient. By that time CT chest and pelvis had resulted showing a large retroperitoneal bleed 12 x 11 x 25 cm. Immediately 2 units of O- blood ordered, 2 units FFP ordered, 1 unit of platelet ordered, TXA ordered. Pressure bags attached. Arterial line requested by anesthesia however they were unable to place secondary to small vessels. Vasopressin was added. She was maxed out on Levophed at 20, max on Levophed. Fentanyl and Versed added. Propofol avoided secondary to hypotension. 4 more units of packed RBC requested by blood bank to have on hold, 2 more units of platelets 2 more units of FFP. Patient was seen multiple x 5 6 times during the day. I had a discussion with family 3 times over the phone called [facility] 2 times and [facility] 2 times as well. She has been accepted for transfer however is too unstable to transfer at this time. Patient too unstable to get a CTA abdomen to identify bleeder. General surgery also consulted for opinion. IR guided intervention recommended at this time Stress to steroids also given. Initially called daughter in the morning and informed her on what was going on. Called her back later and she decided to change patient's CODE STATUS to DNR/DNI. Patient does have medical power of corporate attorney. Did discuss with her the possibility of transferring the patient to higher level of care however she was deemed a very high risk for transfer at the time. [facility] is not flying today secondary to weather and they are grounded. Fixed wing also not available. Ground ambulance will be risky secondary to length of travel and bumpy ride. Patient does have a very large hematoma which can be appreciated on inspection of abdomen. Discussed all of the above with the patient's daughter over the phone. Initially she stated that she would like to hold off on transferring the patient due to that however risk since there is a risk of her dying and route. Third time call daughter again now that vasopressors have come down a little bit. Levophed is at 14 and vasopressin is still at 0.03. MAP is greater than 65. Patient is slightly more stable in the morning. Unsure if bleeding may have stopped or this is a result of multiple transfusions at this time. Discussed with daughter going forward and had a talk for about 35 minutes discussing her case in detail. Does have evidence of ischemic hepatopathy at this time with AST ALT above 1000, total bilirubin 1.6. Albumin 2.6. Patient also in renal failure with not much urine output since overnight. Has probably developed an ATN. Also discussed with daughter regarding neurological status and possibility of watershed area strokes with hypotension and hemorrhagic shock. Discussed with her that patient is in multiorgan failure and on life support at this time. Discussed with her that we could potentially transfer her and bleed or may be found and embolized however unsure of prospects of neurological, liver and renal recovery at this time. Daughter stated she would not be interested in dialysis. She also said that her mom never wanted to be in this type of situation and wanted to be a DNR/DNI. Ultimately daughter states that she would like us to keep the patient alive until she gets here. She lives in [place] and will be driving starting tomorrow and will be arriving here sometime Thursday. Should the patient deteriorate in the meantime she would probably transition to comfort measures. She does not want to transfer the patient to [facility] at this time given patient's severe illness and less hope of full recovery focusing on her quality of life going forward which was already poor. All the above was discussed with the daughter. She has requested us to keep the patient at [facility] and manage the best we can. Patient's daughter also stated that if my mom dies before I get there I promise I will not blame you guys it is in God's hands and it is at God's will for what is going on. Patient's daughter quite tearful over the phone. I offered patient's daughter that we could FaceTime her and let her see her mom on a virtual visit if she would like. She stated she would like to hold off at this time however will call back to the ICU at a later time if she wishes to do that. She also asked if she could come straight to the ICU where there were specific visiting hours and I told her she will be allowed to see her mom no matter what time she arrived here. We will be calling the patient's daughter in case of any change in patient's status. Vitals/I&O/Wt Last Vital Signs Temp 97.8 F 12/15/24 14:13 Pulse 75 12/15/24 16:00 Resp 18 12/15/24 15:35 BP 108/69 12/15/24 16:00 Pulse Ox 94 12/15/24 16:00 O2 Del Method Mechanical Ventilation 12/15/24 13:15 O2 Flow Rate 2 12/15/24 04:30 FiO2 40 12/15/24 15:35 12/15/24 12/15/24 12/15/24 06:59 14:59 22:59 Intake Total 1420.715 / 2400.715 2475.359 / 2475.359 153.500 / 2628.859 Balance 1420.715 / 2521.592 4944.359 / 2475.359 153.500 / 2628.859 Weight last 48 hrs Weight 91.5 kg Weight 89.902 kg Physical Exam Narrative: Intubated sedated Lungs clear to auscultation bilaterally with mild rhonchi on right side Normal S1-S2, regularly irregular, rate controlled, on amiodarone drip Ventilator dependent, FiO2 100% Abdomen: Generally soft however very large right hemiabdomen induration consistent with rectus sheath hematoma, no large amount of ecchymosis present on flanks or groin area. Extremities: Base edema bilateral lower extremities Urinary Catheter Management: Gregory: Cath Placed During This Visit: yes Reason for Continuing Indwelling Catheter: Accurate Measurement of Urinary Output in Critically Ill Patients Urinary Catheter Date of Insertion: 12/14/24 Urinary Catheter Time of Insertion: 22:45 Data 12/15/24 15:00 12/15/24 15:00 Micro: Microbiology 12/15/24 09:55 Gram Stain - Final Sputum - Endotracheal Tube Aspirate 12/15/24 00:39 Blood Culture - Preliminary Blood SPECIMEN COLLECTED 12/15/24 00:34 Blood Culture - Preliminary Blood SPECIMEN COLLECTED A&P Assessment and plan (1) Hypertension: Qualifiers: Hypertension type: primary hypertension Qualified Code(s): I10 - Essential (primary) hypertension (2) CAD (coronary artery disease): Qualifiers: Coronary Disease-Associated Artery/Lesion type: [place] artery [place] vs. transplanted heart: [place] heart Associated angina: without angina Qualified Code(s): I25.10 - Atherosclerotic heart disease of [place] coronary artery without angina pectoris (3) Atrial fibrillation: Qualifiers: Atrial fibrillation type: longstanding persistent Qualified Code(s): I48.11 - Longstanding persistent atrial fibrillation (4) Rectus sheath hematoma: (5) Nontraumatic retroperitoneal hematoma: (6) COPD (chronic obstructive pulmonary disease): Qualifiers: COPD type: emphysema Emphysema type: unspecified Qualified Code(s): J43.9 - Emphysema, unspecified (7) Ischemia reperfusion injury of liver: (8) Renal failure: (9) Ventilator dependent: (10) Acute respiratory failure: (11) Hemorrhagic shock: (12) Lactic acidosis: (13) Atrial fibrillation with RVR: (14) DNR (do not resuscitate): (15) Goals of care, counseling/discussion: (16) ELBA (obstructive sleep apnea): (17) Pulmonary hypertension: (18) NSTEMI (non-ST elevated myocardial infarction): (19) Demand ischemia: (20) Chronic anticoagulation: Plan Lelia Mcguire is a 79 yo woman w/ CAD, chronic Afib,chronic HFpEF, Asthma, pulm HTN, ELBA not on CPAP because it was recalled, HTN who presents to the ED on 12/11/2024 w/ complaints 2 day of productive cough of yellow sputum. Acute hypoxic respiratory failure: She normally does not require O2 at home. Currently on 3L, with witnessed O2 desaturations while speaking during her HPI interview. Will continue to monitor. Asthma exacerbation: Notes document COPD, but per Dr. Sheridan's note in 04/2020, she has Asthma, Th2 phenotype. Patient has not seen Pulmonology since Dr. Sheridan left. - F/u BCx, sputum cx. - BCx negative to date. - Continue Ceftriaxone, Doxycycline, duonebs, PPI, Solumedrol - Started on Azithromycin 500mg PO daily (12/14) - Solumedrol switch from q8H to q12H (12/14) Chronic AFib: -Continue home meds HTN CAD pulm HTN - Resume home meds as appropriate - bilateral lower extremity edema present - trial on Lasix 40 IV x 1 (12/12) - started Lasix 40mg PO daily (12/13) - Patient appears over-diuresed. Will discontinue Lasix (12/14). - Will give fluid 500cc NS bolus (12/14) ELBA - not on CPAP because it was recalled. hx of R. lower extremity DVT -I do not see any records of this. Hx of prolonged bleeding with procedures: she tells of a hx of bleeding from 9 to 12hrs after dental procedures. She states that her INR at a time was 8. This was back in 1989, when she lived in [facility]. She may need to get referred to Hematology for further evaluation. DVTppx: Lovenox GI ppx: PPI 12/12/2024 -Continue management as per H&P. ? Patient does have mild to moderate mitral regurgitation on echo from March 2024. ? Bilateral lower extremities edema present. I will order Lasix 40 IV x 1 as a trial. ? Repeat echo. Suspect mitral regurgitation worsening. 12/13/2024 - echo pending feeling slightly better significant wheezing still present continue steroids, ceftriaxone azithromycin 12/14/2024 - echo pending -Breathing aspect by the patient is feeling better. There were no wheezes present on exam. Lungs are clear to auscultation bilaterally. ? Switch to Solu-Medrol 40 daily. -continue steroids, ceftriaxone azithromycin -Hold Lasix at this time. -administer 500cc NS bolus -consult PT and plan to discharge tomorrow ? Patient would like an enema today. 12/15/2024 #Hemorrhagic shock #Large retroperitoneal hematoma #Rectus sheath hematoma #Hypovolemic shock #Ischemic hepatopathy #Acute tubular necrosis/renal failure #Ventilator dependent respiratory failure #Atrial fibrillation with RVR #Recent COPD exacerbation #History of hypertension, coronary disease, pulmonary hypertension #History obstructive sleep apnea #NSTEMI 2/2 demand ischemia #Chronic anticoagulation -Patient has developed hemorrhagic shock secondary to large retroperitoneal hematoma which is thought to be a spontaneous bleed and nontraumatic at this time. This is thought to be most likely secondary to her chronic anticoagulation. Patient did not have a fall during hospital stay. She may have had a fall prior to coming to the hospital however that was not reported on admission. Unsure of the cause of this bleed at this time. ? For acute hypoxic respiratory failure she was intubated today with rapid sequence intubation by ER. ? CT chest on pelvis does show a rectus sheath hematoma retroperitoneal bleed 11 x 12 x 25 ? Continue on Levophed and vasopressin and wean off as able ? Start normal saline 125 cc/h. Stress dose steroids given hydrocortisone 100 x 2 ? 3 units RBCs given, 2 unit FFP, 1 unit platelet, 2 times TXA. 2 units of O- blood were ordered as well. ? We will check CBC every 6 hours ? Check CMP twice daily, magnesium twice daily ? Lactic acid initially 13.1 trending down to 7.7. ? Initially gas 7.09 however now starting to improve. ? Continue on amiodarone drip at this time for A-fib with RVR ? Not any CPAP at home. Also does have a history of pulmonary hypertension ? Stop Lovenox. Discussed with pharmacy. No benefit to give reversal agent protamine if more than 12 hours since last dose. Last dose of Lovenox was last night at midnight. ? Patient has developed ischemic hepatopathy with worsening liver enzymes greater than 1000. ? Continue Gregory catheter to measure accurate output. So far has not had much urine output overnight. This is most likely secondary to ATN secondary to severe hypotension. ? Multiple discussions have taken place with the family over the phone regarding transfer to higher level of care for possible IR intervention. Family elects not to transfer patient at this time due to high risk of deterioration during transfer. Also discussion regarding quality of life and further prognosis going forward. Daughter coming in from [place] and would like to be able to say goodbye to her mom. Please see HPI portion of this note for further details. ? Patient daughter has elected to change CODE STATUS to DNR/DNI at this time. Allow natural . ? Continue to transfuse patient as warranted. ? General Surgery consulted recommendations appreciated. ? Continue supportive care while family arrives. ? Elevated troponin initial troponin 300, delta negative at 2 hours. Most likely secondary to severe demand ischemia from severe hypotension. ? Echo reviewed. Limited echo ordered for today. ? Continue broad-spectrum antibiotics vancomycin and Zosyn to empirically cover for possible septic shock. ? Most likely cause of shock is hemorrhagic hypovolemic at this point. Prognosis remains poor DVT prophylaxis: SCDs GI prophylaxis: Protonix 40 IV daily. Attestations Medical Necessity Statement*: Critically ill in ICU, hemorrhagic shock, vent dependent respiratory failure, ischemic hepatopathy, acute tubular necrosis, A-fib with RVR, NSTEMI Critical Care Time: The high probability of a clinically significant, sudden or life threatening deterioration of the patient's [cardiovascular, respiratory, hematologic, renal, pulmonary] system(s) required my full and direct attention, intervention and personal management. The critical care time is as shown. This time is in addition to time spent performing any reported procedures but includes the following: [x] Data and vital sign review and interpretation [x] Patient assessment, examination and intervention [x] Documentation [x] Medication orders and management Critical Care Time (min): 200 Almost 1 hour spent talking to daughter on the phone via 3 Phone calls, patient was visited at bedside multiple times throughout the day (at least 5 times). Multiple discussions held with nursing staff, ER doctor, general surgeon, capacity planning manager at [facility], [facility] transfer line, [facility] transfer line. Coding Level of Care Code Acute Code for Chg Fwd Diagnoses Primary hypertension I10 Hypertension type: primary hypertension Coronary artery disease involving [place] coronary artery of [place] heart without angina pectoris I25.10 Coronary Disease-Associated Artery/Lesion type: [place] artery [place] vs. transplanted heart: [place] heart Associated angina: without angina Longstanding persistent atrial fibrillation I48.11 Atrial fibrillation type: longstanding persistent Rectus sheath hematoma S30.1XXA Nontraumatic retroperitoneal hematoma K68.3 Pulmonary emphysema, unspecified emphysema type J43.9 COPD type: emphysema Emphysema type: unspecified Ischemia reperfusion injury of liver K91.81 Renal failure N19 Ventilator dependent Z99.11 Acute respiratory failure J96.00 Hemorrhagic shock R57.8 Lactic acidosis E87.20 Atrial fibrillation with RVR I48.91 DNR (do not resuscitate) Z66 Goals of care, counseling/discussion Z71.89 ELBA (obstructive sleep apnea) G47.33 Pulmonary hypertension I27.20 NSTEMI (non-ST elevated myocardial infarction) I21.4 Demand ischemia I24.89 Chronic anticoagulation Z79.01
--- NOTE | 2024-12-15 17:59 | PC.NURSE ---
1000 Soft bilateral wrist restaints applied at [address] orders. Released and checked, removed and reapplied every 2 hours through 1800 today.
[2024-12-15 20:00] LABS: Glucose Point of Care 161 mg/dL (70-110)
--- NOTE | 2024-12-15 20:49 | PC.NURSE ---
Physician Communication Dr. Tristan contacted unit: orders received to administer 2 units of FFP, 1 unit of platelets, and 1 more unit of PRBCs. Further order received to ensure cbc ordered Q6H, CMP Q12H, and lactic acid Q12H.
[2024-12-15] MEDS: fentaNYL 1,000 MCG/100 ML BAG 2.5 MCG IV (21:18)
--- NOTE | 2024-12-15 21:35 | PC.NURSE ---
Amiodarone Amiodarone drip not administering upon initial assessment. Dr. Sen contacted and order received to leave amiodarone off.
--- NOTE | 2024-12-15 23:00 | PC.NURSE ---
Bloodwork All ports being utilized for medications and blood administration. Dr. Sen notified of blood draw being delayed due to blood product administering as well as lack of access for administration of platelets and FFP simultaneously. Verification received to wait until 1 hour after PRBCs are finished to draw blood work. Platelets and FFP administered after PRBCs and when access available.
[2024-12-15 23:36] LABS: Mean Corpuscular HGB Conc 33.8 g/dL (30-55); Mean Corpuscular Hemoglobin 27.2 pg (27-33); Mean Corpuscular Volume 80.4 fl (85-98); Mean Platelet Volume 10.8 fL (7.4-10.4); Platelet Count 141 10^3/cmm (157-399); Red Blood Count 4.23 10^6/uL (3.85-5.65); Red Cell Distribution Width 18.8 % (12.1-15.1); White Blood Count 20.68 10^3/uL (3.29-11.43)
[2024-12-15 23:55] LABS: Lactate (Lactic Acid level) 4.3 mmol/L (0.5-2.2)
[2024-12-15] MEDS: norepinephrine 4 MG/250 ML BAG 52.5 MG IV (23:58)
[2024-12-16] VITALS (121 sets, daily range): BP systolic 94–162; BP diastolic 26–76; PULSE 65–95; RESP 18–29; TEMP 36.8–37.5; O2SAT 85–100; BMI 35.2
[2024-12-16 00:03] LABS: Alkaline Phosphatase 48 U/L (35-105); Blood Urea Nitrogen 65 mg/dL (8-23); Calcium 6.9 mg/dL (8.5-10.5); Carbon Dioxide 18 mmol/L (22-29); Chloride 95 mmol/L (98-107); Creatinine Clr Calc Pharmacy 17.2739; Globulin 1.5 g/dL (1.3-4.6); Glucose 178 mg/dL (65-115); Osmolality Calculated 305 mOsm/kg (285-295); Sodium 136 mmol/L (136-145); Total Bilirubin 2.2 mg/dL (0.15-1.2); Total Protein 4.5 g/dL (6.6-8.7)
[2024-12-16 00:12] LABS: Slide Review Slide Review Perform
[2024-12-16 00:15] LABS: Alanine Aminotransferase 1325 U/L (0-33)
[2024-12-16 00:18] LABS: Absolute Segmented Neutrophil 14.7 10/cmm (1.6-7.1); Band Neutrophils Absolute 3.9 10^3/cmm (0.0-1.2); Eosinophils 0 %; Lymphocytes 4 %; Segmented Neutrophils 71 %; Total Cells Counted 100 (0-100)
[2024-12-16 00:19] LABS: Absolute Neutrophil 18.6 10^3/cmm (1.4-6.5); Platelet Estimate Decreased (Normal)
[2024-12-16 00:20] LABS: Anisocytosis 1+; Polychromasia Trace
[2024-12-16 00:20] LABS: Aspartate Amino Transferase 2041 U/L (0-32)
[2024-12-16] MEDS: piperacillin-tazobactam 3.375 GM in sodium chloride 0.9% (plus) 50 ML IV ×3 (01:12→21:15)
--- NOTE | 2024-12-16 01:36 | PC.NURSE ---
Blood Dr. Sen notified of hgb 11.5 at 2312. Order received to hold 1 unit of prbcs.
[2024-12-16] MEDS: ipratropium-albuterol 3 mL Neb INHALATION ×4 (02:56→20:09)
[2024-12-16] MEDS: norepinephrine 4 MG/250 ML BAG 45 MG IV ×3 (04:29→15:22)
[2024-12-16 05:29] LABS: Basophils # 0.1 10^3/uL (0.0-0.1); Basophils % 0.2 %; Eosinophils # 0.1 10^3/uL (0.0-0.8); Eosinophils % 0.6 %; Hematocrit 29.3 % (36-47); Lymphocytes # 1.1 10^3/uL (0.8-4.8); Lymphocytes % 4.8 %; Mean Corpuscular HGB Conc 33.4 g/dL (30-55); Mean Corpuscular Hemoglobin 27.1 pg (27-33); Mean Corpuscular Volume 80.9 fl (85-98); Mean Platelet Volume 10.5 fL (7.4-10.4); Monocytes # 0.9 10^3/uL (0.2-0.9); Monocytes % 3.9 %; Neutrophils % 87.6 %; Nucleated Red Blood Cells # 0.1 /100WBC; Nucleated Red Blood Cells % 0.3 %; Platelet Count 142 10^3/cmm (157-399); Red Blood Count 3.62 10^6/uL (3.85-5.65); Red Cell Distribution Width 19.7 % (12.1-15.1); White Blood Count 22.05 10^3/uL (3.29-11.43)
[2024-12-16 05:45] LABS: Lactate (Lactic Acid level) 3.1 mmol/L (0.5-2.2)
[2024-12-16 05:59] LABS: Albumin Level 3.3 g/dL (3.5-5.2); Alkaline Phosphatase 52 U/L (35-105); Anion Gap 26.8 (5-19); Blood Urea Nitrogen 69 mg/dL (8-23); Calcium 7.1 mg/dL (8.5-10.5); Carbon Dioxide 18 mmol/L (22-29); Chloride 96 mmol/L (98-107); Creatinine Clr Calc Pharmacy 16.1943; Globulin 1.3 g/dL (1.3-4.6); Glucose 169 mg/dL (65-115); Osmolality Calculated 308 mOsm/kg (285-295); Potassium 3.8 mmol/L (3.5-5.1); Sodium 137 mmol/L (136-145); Total Bilirubin 1.8 mg/dL (0.15-1.2); Total Protein 4.6 g/dL (6.6-8.7)
[2024-12-16 06:06] LABS: Slide Review Slide Review Perform
[2024-12-16] MEDS: pantoprazole 40 mg SDV IVP (06:14)
[2024-12-16] MEDS: vasopressin 40 UNIT/100 ML PREMIX IV (06:15)
[2024-12-16 06:21] LABS: Alanine Aminotransferase 1139 U/L (0-33)
[2024-12-16 06:23] LABS: Aspartate Amino Transferase 1694 U/L (0-32)
--- NOTE | 2024-12-16 06:27 | PC.NURSE ---
Blood Dr. Sen notified of hgb 9.8; order received to transfuse 1 unit prbcs.
[2024-12-16] MEDS: lanolin oint 7 gm 1 APPLIC TOPICAL (08:27)
--- NOTE | 2024-12-16 08:41 | P.PN_ITS ---
Subjective 2 Subjective: Patient continues to be in critical condition, hemoglobin has continued to trend down, which is indicative of likely persistent bleeding. Hemodynamics have remained stable and her pressor requirement has dropped Vitals/I&O/Wt Last Vital Signs Temp 98.8 F 12/16/24 08:15 Pulse 86 12/16/24 08:15 Resp 21 H 12/16/24 07:46 BP 120/61 12/16/24 08:15 Pulse Ox 97 12/16/24 08:15 O2 Del Method Mechanical Ventilation 12/16/24 04:15 O2 Flow Rate 2 12/15/24 04:30 FiO2 30 12/16/24 07:46 12/15/24 12/16/24 12/16/24 22:59 06:59 14:59 Intake Total 776.200 / 3259.866 1945.009 / 5204.875 1000 / 1000 Output Total 100 / 100 475 / 575 Balance 676.200 / 3159.866 1470.009 / 4629.875 1000 / 1000 Weight last 48 hrs Weight 211 lb 10.3 oz Weight 201 lb 11.567 oz Physical Exam 2 Narrative: Intubated and sedated. Otherwise unchanged abdominal exam. Urinary Catheter Management: Gregory: Cath Placed During This Visit: yes Reason for Continuing Indwelling Catheter: Accurate Measurement of Urinary Output in Critically Ill Patients Urinary Catheter Date of Insertion: 12/14/24 Urinary Catheter Time of Insertion: 22:45 Data 12/16/24 05:17 12/16/24 05:17 Micro: Microbiology 12/15/24 08:25 Urine Culture - Preliminary Urine Catheterized 12/15/24 00:39 Blood Culture - Preliminary Blood NEGATIVE TO DATE 12/15/24 00:34 Blood Culture - Preliminary Blood NEGATIVE TO DATE 12/15/24 09:55 Gram Stain - Final Sputum - Endotracheal Tube Aspirate A&P Assessment and plan (1) Chronic anticoagulation: (2) DNR (do not resuscitate): (3) Rectus sheath hematoma: (4) Nontraumatic retroperitoneal hematoma: Plan And patient in critical condition, has a large retroperitoneal and retrorectus hematoma. We have discussed with the medical team and the possibility of evaluation by IR specialist for possible embolization. Since the patient at the moment has and allowed natural status currently the plan is to await for family arrival to make a decision of whether or not to proceed with more aggressive treatment and transfer to higher level of care. In the meantime patient has continued to receive pressor support and blood transfusions. No additional intervention can be offered from the general surgery standpoint at this time. Attestations 2 Medical Necessity Statement*: Per medical team Coding Level of Care Code Acute Code for Chg Fwd Diagnoses Chronic anticoagulation Z79.01 DNR (do not resuscitate) Z66 Rectus sheath hematoma S30.1XXA Nontraumatic retroperitoneal hematoma K68.3
[2024-12-16 08:51] LABS: ABG PCO2 36.5 mmHg (35-45); ABG PH Result 7.38 (7.35-7.45); Alveolar-Arterial Oxygen Gradi 14.8 mmHg (5-10); Arterial Blood Gas Hematocrit 33.5 % (37-47); Blood Gas Allen Test Pos; Blood Gas Operator Identificat CAK; Blood Gas Sample Site Brachial, left; Blood Gas Sample Type Arterial; Blood Gas Tidal Volume 0.45; Carboxyhemoglobin 1.2 %THgb (0.4-20.1); HCO3 ABG 21.7 mmol/L (22-26); HGB O2 Sat 88.3 % (95-100); Methemoglobin 1.1 % (0.4-1.5); Oxygen Device VENT; Oxygen Saturation ABG 90.5; PO2 ABG 52.8 mmHg (80.0-100.0); PO2 FiO2 Ratio Arterial Blood 176; Potassium Level - ABG 3.6 mmol/L (3.5-5.0); Total Hemoglobin 10.9 g/dL (12-16)
[2024-12-16] MEDS: midazolam hcl 100 MG/100 ML BAG IV (11:43)
--- NOTE | 2024-12-16 11:45 | PC.OT ---
HOLD OT TREATMENT PATIENT IS INTUBATED AT THIS TIME
[2024-12-16 13:23] LABS: Basophils % 0.2 %; Eosinophils # 0.1 10^3/uL (0.0-0.8); Eosinophils % 0.4 %; Hematocrit 30.9 % (36-47); Lymphocytes % 4.8 %; Mean Corpuscular HGB Conc 33.7 g/dL (30-55); Mean Corpuscular Hemoglobin 27.1 pg (27-33); Mean Corpuscular Volume 80.5 fl (85-98); Mean Platelet Volume 10.9 fL (7.4-10.4); Monocytes # 1.1 10^3/uL (0.2-0.9); Monocytes % 5.5 %; Neutrophils # 17.26 10^3/uL (1.8-7.7); Neutrophils % 86.2 %; Nucleated Red Blood Cells # 0.1 /100WBC; Nucleated Red Blood Cells % 0.6 %; Platelet Count 133 10^3/cmm (157-399); Red Blood Count 3.84 10^6/uL (3.85-5.65); Red Cell Distribution Width 18.7 % (12.1-15.1)
[2024-12-16 13:35] LABS: INR 1.46 (0.8-1.2)
[2024-12-16 13:36] LABS: Partial Thromboplastin Time 39.4 SECONDS (23.9-36.7)
[2024-12-16] MEDS: vancomycin 500 MG in sodium chloride 0.9% (plus) 100 ML 200 MG IV (14:24)
[2024-12-16] MEDS: fentaNYL 1,000 MCG/100 ML BAG 7.5 MCG IV (15:21)
--- NOTE | 2024-12-16 15:32 | P.PN_ITS ---
Subjective 2 Subjective: Seen this morning. Patient following some commands this morning. Sedation increased. Urine output has increased compared to yesterday. Vasopressor requirement has come down. Levophed is down to 12 mics and vasopressin has been turned off. Abdominal exam abdomen is slightly more soft compared to yesterday. Hemoglobin did trend down for which another blood transfusion was ordered for this morning. Lactic acid has reduced down to 3.0. Patient remains intubated sedated. Amiodarone drip was turned off overnight. She is on minimal vent settings at this time. Vitals/I&O/Wt Last Vital Signs Temp 98.8 F 12/16/24 08:15 Pulse 77 12/16/24 15:00 Resp 18 12/16/24 13:31 BP 153/59 12/16/24 15:00 Pulse Ox 97 12/16/24 15:00 O2 Del Method Mechanical Ventilation 12/16/24 13:31 O2 Flow Rate 2 12/15/24 04:30 FiO2 35 12/16/24 13:31 12/16/24 12/16/24 12/16/24 06:59 14:59 22:59 Intake Total 1945.009 / 5204.875 1544.833 / 1544.833 297.00 / 1841.833 Output Total 475 / 575 Balance 1470.009 / 4629.875 1544.833 / 1544.833 297.00 / 1841.833 Weight last 48 hrs Weight 96 kg Weight 91.5 kg Physical Exam 2 Narrative: Intubated sedated Lungs clear to auscultation bilaterally with mild rhonchi on right side Normal S1-S2, regularly irregular, rate controlled, Ventilator dependent, FiO2 35% Abdomen: Generally soft however very large right hemiabdomen induration consistent with rectus sheath hematoma, no large amount of ecchymosis present on flanks or groin area. Extremities: Base edema bilateral lower extremities Urinary Catheter Management: Gregory: Cath Placed During This Visit: yes Reason for Continuing Indwelling Catheter: Accurate Measurement of Urinary Output in Critically Ill Patients Urinary Catheter Date of Insertion: 12/14/24 Urinary Catheter Time of Insertion: 22:45 Data 12/16/24 13:00 12/16/24 05:17 Micro: Microbiology 12/15/24 09:55 Gram Stain - Final Sputum - Endotracheal Tube Aspirate Sputum Culture - Preliminary 12/15/24 08:25 Urine Culture - Preliminary Urine Catheterized 12/15/24 00:39 Blood Culture - Preliminary Blood NEGATIVE TO DATE 12/15/24 00:34 Blood Culture - Preliminary Blood NEGATIVE TO DATE A&P Assessment and plan (1) Hypertension: Qualifiers: Hypertension type: primary hypertension Qualified Code(s): I10 - Essential (primary) hypertension (2) CAD (coronary artery disease): Qualifiers: Coronary Disease-Associated Artery/Lesion type: [place] artery [place] vs. transplanted heart: moapa heart Associated angina: without angina Qualified Code(s): I25.10 - Atherosclerotic heart disease of [place] coronary artery without angina pectoris (3) Atrial fibrillation: Qualifiers: Atrial fibrillation type: longstanding persistent Qualified Code(s): I 48.11 - Longstanding persistent atrial fibrillation (4) Rectus sheath hematoma: (5) Nontraumatic retroperitoneal hematoma: (6) COPD (chronic obstructive pulmonary disease): Qualifiers: COPD type: emphysema Emphysema type: unspecified Qualified Code(s): J 43.9 - Emphysema, unspecified (7) Ischemia reperfusion injury of liver: (8) Renal failure: (9) Ventilator dependent: (10) Acute respiratory failure: (11) Hemorrhagic shock: (12) Lactic acidosis: (13) Atrial fibrillation with RVR: (14) DNR (do not resuscitate): (15) Goals of care, counseling/discussion: (16) ELBA (obstructive sleep apnea): (17) Pulmonary hypertension: (18) NSTEMI (non-ST elevated myocardial infarction): (19) Demand ischemia: (20) Chronic anticoagulation: Plan Lelia Mcguire is a 79 yo woman w/ CAD, chronic Afib,chronic HFpEF, Asthma, pulm HTN, ELBA not on CPAP because it was recalled, HTN who presents to the ED on 12/11/2024 w/ complaints 2 day of productive cough of yellow sputum. Acute hypoxic respiratory failure: She normally does not require O2 at home. Currently on 3L, with witnessed O2 desaturations while speaking during her HPI interview. Will continue to monitor. Asthma exacerbation: Notes document COPD, but per Dr. Sheridan's note in 04/2020, she has Asthma, Th2 phenotype. Patient has not seen Pulmonology since Dr. Sheridan left. - F/u BCx, sputum cx. - BCx negative to date. - Continue Ceftriaxone, Doxycycline, duonebs, PPI, Solumedrol - Started on Azithromycin 500mg PO daily (12/14) - Solumedrol switch from q8H to q12H (12/14) Chronic AFib: -Continue home meds HTN CAD pulm HTN - Resume home meds as appropriate - bilateral lower extremity edema present - trial on Lasix 40 IV x 1 (12/12) - started Lasix 40mg PO daily (12/13) - Patient appears over-diuresed. Will discontinue Lasix (12/14). - Will give fluid 500cc NS bolus (12/14) ELBA - not on CPAP because it was recalled. hx of R. lower extremity DVT -I do not see any records of this. Hx of prolonged bleeding with procedures: she tells of a hx of bleeding from 9 to 12hrs after dental procedures. She states that her INR at a time was 8. This was back in 1989, when she lived in [facility]. She may need to get referred to Hematology for further evaluation. DVTppx: Lovenox GI ppx: PPI 12/12/2024 -Continue management as per H&P. ? Patient does have mild to moderate mitral regurgitation on echo from March 2024. ? Bilateral lower extremities edema present. I will order Lasix 40 IV x 1 as a trial. ? Repeat echo. Suspect mitral regurgitation worsening. 12/13/2024 - echo pending feeling slightly better significant wheezing still present continue steroids, ceftriaxone azithromycin 12/14/2024 - echo pending -Breathing aspect by the patient is feeling better. There were no wheezes present on exam. Lungs are clear to auscultation bilaterally. ? Switch to Solu-Medrol 40 daily. -continue steroids, ceftriaxone azithromycin -Hold Lasix at this time. -administer 500cc NS bolus -consult PT and plan to discharge tomorrow ? Patient would like an enema today. 12/15/2024 #Hemorrhagic shock #Large retroperitoneal hematoma #Rectus sheath hematoma #Hypovolemic shock #Ischemic hepatopathy #Acute tubular necrosis/renal failure #Ventilator dependent respiratory failure #Atrial fibrillation with RVR #Recent COPD exacerbation #History of hypertension, coronary disease, pulmonary hypertension #History obstructive sleep apnea #NSTEMI 2/2 demand ischemia #Chronic anticoagulation -Patient has developed hemorrhagic shock secondary to large retroperitoneal hematoma which is thought to be a spontaneous bleed and nontraumatic at this time. This is thought to be most likely secondary to her chronic anticoagulation. Patient did not have a fall during hospital stay. She may have had a fall prior to coming to the hospital however that was not reported on admission. Unsure of the cause of this bleed at this time. ? For acute hypoxic respiratory failure she was intubated today with rapid sequence intubation by ER. ? CT chest on pelvis does show a rectus sheath hematoma retroperitoneal bleed 11 x 12 x 25 ? Continue on Levophed and vasopressin and wean off as able ? Start normal saline 125 cc/h. Stress dose steroids given hydrocortisone 100 x 2 ? 3 units RBCs given, 2 unit FFP, 1 unit platelet, 2 times TXA. 2 units of O- blood were ordered as well. ? We will check CBC every 6 hours ? Check CMP twice daily, magnesium twice daily ? Lactic acid initially 13.1 trending down to 7.7. ? Initially gas 7.09 however now starting to improve. ? Continue on amiodarone drip at this time for A-fib with RVR ? Not any CPAP at home. Also does have a history of pulmonary hypertension ? Stop Lovenox. Discussed with pharmacy. No benefit to give reversal agent protamine if more than 12 hours since last dose. Last dose of Lovenox was last night at midnight. ? Patient has developed ischemic hepatopathy with worsening liver enzymes greater than 1000. ? Continue Gregory catheter to measure accurate output. So far has not had much urine output overnight. This is most likely secondary to ATN secondary to severe hypotension. ? Multiple discussions have taken place with the family over the phone regarding transfer to higher level of care for possible IR intervention. Family elects not to transfer patient at this time due to high risk of deterioration during transfer. Also discussion regarding quality of life and further prognosis going forward. Daughter coming in from [place] and would like to be able to say goodbye to her mom. Please see HPI portion of this note for further details. ? Patient daughter has elected to change CODE STATUS to DNR/DNI at this time. Allow natural . ? Continue to transfuse patient as warranted. ? General Surgery consulted recommendations appreciated. ? Continue supportive care while family arrives. ? Elevated troponin initial troponin 300, delta negative at 2 hours. Most likely secondary to severe demand ischemia from severe hypotension. ? Echo reviewed. Limited echo ordered for today. ? Continue broad-spectrum antibiotics vancomycin and Zosyn to empirically cover for possible septic shock. ? Most likely cause of shock is hemorrhagic hypovolemic at this point. Prognosis remains poor DVT prophylaxis: SCDs GI prophylaxis: Protonix 40 IV daily. 12/16/2024 ?Vasopressor requirements are starting to come down. ? Continue to transfuse based on hemodynamic parameters and hemoglobin. ? General Surgery recommendations appreciated. ? Urine output starting to increase, lactic acid down to 3.0. White count trended down to 20, hemoglobin 10.4 around 1 PM this afternoon. Patient is on minimal vent settings. Creatinine 3.2 today. BUN 69. Anion gap 26.8. Bicarb 18. AST ALT elevated however slightly trending downward compared to yesterday. ? Continue to provide supportive care. Family declined transfer to higher level of care prior embolization. ? Await family to arrive to make further decisions. ? Continue Zosyn, vancomycin at this time. ? Continue to wean off pressors as able. ? Did discuss with family yesterday to check a CT abdomen pelvis with IV contrast to look for bleeding source however family concerned once we physically move the patient possibility of bleeding increase or hematoma destabilizing. Since patient is a DNR/DNI at this point they would like to hold off on that at this point so they are able to come and see her. Had a detailed discussion with family yesterday regarding CT with IV contrast. Family also concerned secondary to patient's iodine allergy. I did tell them that we could premedicate patient. I will hold off on CT at this time. DNR/DNI SCDs Protonix 40 IV daily Remains critically ill in ICU, prognosis is poor. Attestations 2 Medical Necessity Statement*: Critically ill in ICU, hemorrhagic shock, vent dependent respiratory failure, ischemic hepatopathy, acute tubular necrosis, A-fib with RVR, NSTEMI Critical Care Time: The high probability of a clinically significant, sudden or life threatening deterioration of the patient's [cardiovascular, respiratory, hematologic, renal, pulmonary] system(s) required my full and direct attention, intervention and personal management. The critical care time is as shown. This time is in addition to time spent performing any reported procedures but includes the following: [x] Data and vital sign review and interpretation [x] Patient assessment, examination and intervention [x] Documentation [x] Medication orders and management Critical Care Time (min): 45 Almost 1 hour spent talking to daughter on the phone via 3 Phone calls, patient was visited at bedside multiple times throughout the day (at least 5 times). Multiple discussions held with nursing staff, ER doctor, general surgeon, residential leasing manager at [facility], [facility] transfer line, [facility] transfer line. Coding Level of Care Code Critical Care >/= 30 minutes Critical care time (in minutes): 45 The high probability of a clinically significant, sudden or life threatening deterioration, as referenced in this documentation, required my full and direct attention, intervention and personal management. The critical care time shown is in addition to time spent performing any reported separately billable procedures and includes the following: [x] Data and vital sign review and interpretation [x ] Patient assessment, examination and intervention [x] Medication orders and management [x] Patient/Family updates as able [x] Care Coordination and Documentation. Diagnoses Primary hypertension I10 Hypertension type: primary hypertension Coronary artery disease involving mo[place] coronary artery of [place] heart without angina pectoris I25.10 Coronary Disease-Associated Artery/Lesion type: [place] artery [place] vs. transplanted heart: [place] heart Associated angina: without angina Longstanding persistent atrial fibrillation I48.11 Atrial fibrillation type: longstanding persistent Rectus sheath hematoma S30.1XXA Nontraumatic retroperitoneal hematoma K68.3 Pulmonary emphysema, unspecified emphysema type J43.9 COPD type: emphysema Emphysema type: unspecified Ischemia reperfusion injury of liver K91.81 Renal failure N19 Ventilator dependent Z99.11 Acute respiratory failure J96.00 Hemorrhagic shock R57.8 Lactic acidosis E87.20 Atrial fibrillation with RVR I48.91 DNR (do not resuscitate) Z66 Goals of care, counseling/discussion Z71.89 ELBA (obstructive sleep apnea) G47.33 Pulmonary hypertension I27.20 NSTEMI (non-ST elevated myocardial infarction) I21.4 Demand ischemia I24.89 Chronic anticoagulation Z79.01
--- NOTE | 2024-12-16 15:56 | PC.SOCIAL ---
IMM updated IMM dated and initialed and placed in chart and copy given to patient
[2024-12-16 16:24] LABS: Basophils # 0.1 10^3/uL (0.0-0.1); Basophils % 0.3 %; Eosinophils # 0.1 10^3/uL (0.0-0.8); Eosinophils % 0.3 %; Hematocrit 30.4 % (36-47); Lymphocytes % 5.2 %; Mean Corpuscular HGB Conc 33.9 g/dL (30-55); Mean Corpuscular Hemoglobin 28.1 pg (27-33); Mean Corpuscular Volume 83.1 fl (85-98); Monocytes % 5.2 %; Neutrophils # 16.42 10^3/uL (1.8-7.7); Neutrophils % 85.1 %; Nucleated Red Blood Cells # 0.2 /100WBC; Nucleated Red Blood Cells % 0.9 %; Platelet Count 139 10^3/cmm (157-399); Red Blood Count 3.66 10^6/uL (3.85-5.65); Red Cell Distribution Width 18.9 % (12.1-15.1); White Blood Count 19.29 10^3/uL (3.29-11.43)
[2024-12-16 16:53] LABS: Alkaline Phosphatase 56 U/L (35-105); Blood Urea Nitrogen 75 mg/dL (8-23); Calcium 7.5 mg/dL (8.5-10.5); Carbon Dioxide 20 mmol/L (22-29); Chloride 101 mmol/L (98-107); Creatinine Clr Calc Pharmacy 16.1028; Globulin 1.9 g/dL (1.3-4.6); Glucose 131 mg/dL (65-115); Osmolality Calculated 312 mOsm/kg (285-295); Sodium 139 mmol/L (136-145); Total Bilirubin 1.5 mg/dL (0.15-1.2); Total Protein 4.9 g/dL (6.6-8.7)
[2024-12-16 16:54] LABS: Lactic Sepsis W/Reflex 2.1 mmol/L (0.5-2.2)
[2024-12-16 17:06] LABS: Alanine Aminotransferase 1014 U/L (0-33); Aspartate Amino Transferase 1117 U/L (0-32)
[2024-12-16 18:07] LABS: Reflex Lactate Order REFLEX LACTIC ORDERD
--- NOTE | 2024-12-16 20:20 | XRR_ITS ---
PROCEDURE INFORMATION: Exam: XR Chest Exam date and time: 12/16/2024 8:20 PM Age: 79 years old Clinical indication: Shortness of breath; Increasing hypoxia despite mechanical ventilation. ; Additional info: Low spo2, 100% fio2 on ventilator TECHNIQUE: Imaging protocol: Radiologic exam of the chest. Views: 1 view. COMPARISON: CR XR chest 1V portable [id number] 12/15/2024 10:22 AM FINDINGS: Tubes, catheters and devices: Endotracheal tube tip is in the distal trachea 2 cm above the carinal level. NG tube courses to the upper abdomen outside the field of view. Lungs: Increased basilar retrocardiac opacity due to atelectasis or consolidation. Pleural spaces: No large pleural effusion. No pneumothorax . Heart/Mediastinum: Mild cardiomegaly. Bones/joints: No acute osseous abnormality . XR/XR chest 1V portable [id number] IMPRESSION: 1. Increased retrocardiac basilar density may suggest underlying atelectatic change or consolidation. 2. Endotracheal tube may be retracted by 2 cm for optimal positioning. 3. No interval change from 12/15/2024. Stable mild cardiomegaly.
[2024-12-16 20:58] LABS: Basophils % 0.2 %; Eosinophils # 0.1 10^3/uL (0.0-0.8); Eosinophils % 0.7 %; Hematocrit 29.5 % (36-47); Lymphocytes # 1.3 10^3/uL (0.8-4.8); Lymphocytes % 6.7 %; Mean Corpuscular HGB Conc 33.6 g/dL (30-55); Mean Corpuscular Hemoglobin 27.3 pg (27-33); Mean Corpuscular Volume 81.5 fl (85-98); Mean Platelet Volume 10.6 fL (7.4-10.4); Monocytes % 5.5 %; Neutrophils # 15.28 10^3/uL (1.8-7.7); Neutrophils % 81.9 %; Nucleated Red Blood Cells # 0.3 /100WBC; Nucleated Red Blood Cells % 1.4 %; Platelet Count 144 10^3/cmm (157-399); Red Blood Count 3.62 10^6/uL (3.85-5.65); Red Cell Distribution Width 18.7 % (12.1-15.1); White Blood Count 18.66 10^3/uL (3.29-11.43)
[2024-12-16 21:03] LABS: ABG PCO2 39.1 mmHg (35-45); ABG PH Result 7.35 (7.35-7.45); Arterial Blood Gas Hematocrit 33.2 % (37-47); Base Excess ABG -3.8 mmol/L (-2.0-2.0); Blood Gas Operator Identificat SAM; Blood Gas Sample Site Brachial, right; Blood Gas Sample Type Arterial; HCO3 ABG 21.5 mmol/L (22-26); Oxygen Device VENT; PO2 FiO2 Ratio Arterial Blood 393
--- NOTE | 2024-12-16 21:26 | P.CONIM_ITS ---
Providers/Reason For Consult 2 Consulting Physician/Specialty*: [facility]/Nephrology Reason for Consult*: SRINI Attending Physician: Rosa Tristan MD Primary Care Provider: Awa Frederick MD History of Present Illness History of Present Illness Lelia Mcguire is a 79 year old female Patient is a 79-year-old female with past medical history significant for coronary artery disease, A-fib, pulmonary hypertension, CHF, history of DVT, obstructive sleep apnea was admitted to the hospital on 12/11/2024 due to progressively worsening shortness of breath and cough. Patient was being treated for possible asthma exacerbation and on 12/14/2024 patient had rapid response was noted to be hypotensive with elevated lactic acid levels. Patient was intubated at that time and was transferred to ICU and was placed on pressors. Further workup has revealed large right pleural peritoneal hematoma and general surgery was consulted. Patient has another rapid response on 12/15/2024 and had an episode where her blood pressure dropped again with the A-fib with rapid RVR. Patient had normal creatinine on presentation but renal function has possibly gotten worse with a creatinine up to 3.3 today. Urine output reasonable about 1 L all day today. Currently patient on 100% FiO2 on Levophed at 8 mics per hour, IV fluids have been discontinued due to increased O2 requirements. Review of Systems 2 Narrative: cannot obtain Medications/Allergies Home Medications Medication Instructions Recorded Confirmed Last Taken Type cyanocobalamin (vitamin B-12) 1,000 mcg PO QPM 05/30/21 12/12/24 08/21/22 History 1,000 mcg tablet (Vitamin B-12) calcium carbonate 500 mg PO QPM 05/20/22 12/12/24 08/21/22 History cholecalciferol (vitamin D3) 50 50 mcg PO QPM 05/20/22 12/12/24 08/21/22 History mcg (2,000 unit) tablet (Vitamin D3) cetirizine 10 mg tablet 10 mg PO BID PRN allergy symptoms 06/10/23 12/12/24 Unknown Rx #180 tabs isosorbide mononitrate 30 mg 30 mg PO DAILY #90 tabs 11/26/23 12/12/24 Unknown Rx tablet,extended release 24 hr lisinopril 2.5 mg tablet 2.5 mg PO QAM #90 tabs 12/18/23 12/12/24 Unknown Rx furosemide 20 mg tablet See Rx Instructions .Route 01/07/24 12/12/24 Unknown Rx .COMPLEX #180 tabs hydrocodone 5 mg-acetaminophen 325 1 tab PO Q8H PRN pain 7 days #20 01/07/24 12/12/24 Unknown Rx mg tablet tabs potassium chloride 10 mEq 20 meq (2 x 10 mEq) PO DAILY #180 01/07/24 12/12/24 Unknown Rx tablet,extended release tabs rivaroxaban 20 mg tablet (Xarelto) See Rx Instructions .Route 01/07/24 12/12/24 Unknown Rx .COMPLEX #90 tabs nitroglycerin 0.4 mg sublingual 0.4 mg sublingual Q5M PRN chest 08/24/24 12/12/24 Unknown Rx tablet pain #25 tabs doxycycline hyclate 100 mg capsule 100 mg PO BID 10 days #20 caps 12/11/24 Unknown Rx guaifenesin 600 mg tablet, 600 mg PO BID 3 days #6 tabs 12/11/24 Unknown Rx extended release 12 hr (Mucinex) prednisone 20 mg tablet 40 mg (2 x 20 mg) PO DAILY 3 days 12/11/24 Unknown Rx #6 tabs acetaminophen 650 mg 650 mg PO Q12H 12/12/24 12/12/24 Unknown History tablet,extended release (Tylenol Arthritis Pain) Allergies Allergy/AdvReac Type Severity Reaction Status Date / Time iodine Allergy Unknown ALGY-Bliste Verified 08/30/24 07:05 r metoprolol Allergy Unknown Unknown Verified 08/30/24 07:05 alcohol Allergy ALGY-Hives Verified 08/30/24 07:05 alfalfa Allergy ALGY-Rash Verified 08/30/24 07:05 aloe vera Allergy ALGY-Bliste Verified 08/30/24 07:05 r atenolol Allergy ALGY-Swell Verified 08/30/24 07:05 Lip/Tongue/Throat bamboo Allergy ALGY-Rash Verified 08/30/24 07:05 barley Allergy ALGY-Rash Verified 08/30/24 07:05 bran Allergy ALGY-Hives Verified 08/30/24 07:05 [place] And Derivatives Allergy ALGY-Hives Verified 08/30/24 07:05 clams Allergy ALGY-Difficulty Verified 08/30/24 07:05 Swallowing crab Allergy Unknown Verified 08/30/24 07:05 crayfish Allergy Unknown Verified 08/30/24 07:05 diphenhydramine Allergy ADR-Itching Verified 08/30/24 07:05 [From Benadryl] epinephrine Allergy ADR/ALGY-Pa Verified 08/30/24 07:05 lpitations grapefruit Allergy Unknown Verified 08/30/24 07:05 grass pollen Allergy ALGY-Rash Verified 08/30/24 07:05 juniper tar Allergy Unknown Verified 08/30/24 07:05 kiwi Allergy ALGY-Hives Verified 08/30/24 07:05 latex Allergy ALGY-Rash Verified 08/30/24 07:05 lavender (Lavandula Allergy ALGY-Rash Verified 08/30/24 07:05 angustifolia) lemon Allergy ALGY-Rash Verified 08/30/24 07:05 lemon oil Allergy ALGY-Rash Verified 08/30/24 07:05 licorice Allergy Unknown Verified 08/30/24 07:05 barrow Allergy Unknown Verified 08/30/24 07:05 molasses Allergy Unknown Verified 08/30/24 07:05 mold Allergy ALGY-Rash Verified 08/30/24 07:05 mussels Allergy Unknown Verified 08/30/24 07:05 nut - unspecified Allergy ALGY-Hives Verified 08/30/24 07:05 oats Allergy ALGY-Hives Verified 08/30/24 07:05 octopus Allergy Unknown Verified 08/30/24 07:05 orange Allergy ALGY-Rash Verified 08/30/24 07:05 oyster extract Allergy Unresponsiv Verified 08/30/24 07:05 e passion fruit Allergy Unknown Verified 08/30/24 07:05 scallops Allergy Unknown Verified 08/30/24 07:05 shellfish derived Allergy ALGY-Swell Verified 08/30/24 07:05 Lip/Tongue/Throat shrimp Allergy Unknown Verified 08/30/24 07:05 squid Allergy Unknown Verified 08/30/24 07:05 wheat Allergy ALGY-Hives Verified 08/30/24 07:05 shell fish Allergy Severe ALGY-Swell Uncoded 08/30/24 07:05 Lip/Tongue/Throat abolone Allergy Unknown Uncoded 08/30/24 07:05 anchovie Allergy ALGY-Hives Uncoded 08/30/24 07:05 antibacterial soap Allergy Unknown Uncoded 08/30/24 07:05 berries Allergy ALGY-Hives Uncoded 08/30/24 07:05 carob Allergy Unknown Uncoded 08/30/24 07:05 contrast dye Allergy ALGY-Difficulty Uncoded 08/30/24 07:05 Breathing gold Allergy Unknown Uncoded 08/30/24 07:05 hemp oil Allergy ALGY-Rash Uncoded 08/30/24 07:05 kumquat Allergy Unknown Uncoded 08/30/24 07:05 lobster Allergy Unknown Uncoded 08/30/24 07:05 malt Allergy ALGY-Bliste Uncoded 08/30/24 07:05 r mesquite Allergy Unknown Uncoded 08/30/24 07:05 millet Allergy ALGY-Rash Uncoded 08/30/24 07:05 mink oil Allergy ALGY-Rash Uncoded 08/30/24 07:05 mola Allergy Unknown Uncoded 08/30/24 07:05 MSG Allergy Unknown Uncoded 08/30/24 07:05 prawn Allergy Unknown Uncoded 08/30/24 07:05 rye Allergy ALGY-Rash Uncoded 08/30/24 07:05 snail Allergy Unknown Uncoded 08/30/24 07:05 sorghum Allergy Unknown Uncoded 08/30/24 07:05 tangello Allergy Unresponsiv Uncoded 08/30/24 07:05 e tangerine Allergy Unknown Uncoded 08/30/24 07:05 [facility] sauce AdvReac Severe ALGY-Swell Uncoded 08/30/24 07:05 Lip/Tongue/Throat Current Medications Generic Name Dose Route Start Last Admin Trade Name Freq PRN Reason Stop Dose Admin Albuterol/Ipratropium 3 ml 12/12/24 02:00 12/16/24 20:09 Ipratropium-Albuterol 3 Ml Neb INHALATION 3 ml Q6H.RESP RAPHAEL Administration Furosemide 40 mg 12/12/24 08:00 12/12/24 08:51 Furosemide 40 Mg Tablet PO 40 mg DAILY@0800 RAPHAEL Administration Amiodarone HCl/Dextrose 360 mg in 200 mls @ 0 mls/hr 12/14/24 22:15 12/15/24 18:27 Nexterone IV Infused .Q0M RAPHAEL Titration Protocol Per Protocol Norepinephrine Bitartrate 4 mg in 250 mls @ 0 mls/hr 12/14/24 22:30 12/16/24 18:56 Levophed IV 8 mcg/min .Q0M RAPHAEL 30 mls/hr Titration Protocol Per Protocol Vasopressin 40 unit in 100 mls @ 0 mls/hr 12/15/24 09:00 12/16/24 08:00 Vasostrict IV 0 unit/min .Q0M RAPHAEL 0 mls/hr Titration Protocol Per Protocol Fentanyl 1,000 mcg in 100 mls @ 0 mls/hr 12/15/24 09:00 12/16/24 15:21 Sublimaze IV 75 mcg/hr .Q0M RAPHAEL 7.5 mls/hr Administration Protocol Per Protocol Propofol 1,000 mg in 100 mls @ 0 mls/hr 12/15/24 09:00 12/15/24 14:45 Diprivan IV 0 mcg/kg/min .Q0M RAPHAEL 0 mls/hr Titration Protocol Per Protocol Midazolam HCl 100 mg in 100 mls @ 0 mls/hr 12/15/24 11:45 12/16/24 18:56 Versed IV 3 mg/hr .Q0M RAPHAEL 3 mls/hr Titration Protocol Per Protocol Sodium Chloride 1,000 mls @ 125 mls/hr 12/15/24 15:15 12/16/24 15:05 Sodium Chloride 0.9% IV Not Given .Q8H RAPHAEL Piperacillin Sod/Tazobactam 50 mls @ 12.5 mls/hr 12/16/24 22:00 12/16/24 21:15 Sod 3.375 gm/ Sodium Chloride IV 12.5 mls/hr Q12H RAPHAEL Administration Lanolin 1 applic 12/14/24 09:33 12/16/24 08:27 Lanolin Oint 7 Gm TOPICAL 1 applic PRN PRN Administration DRYNESS Pantoprazole Sodium 40 mg 12/12/24 07:00 12/16/24 06:14 Pantoprazole 40 Mg Sdv IVP 40 mg ACBREAKFAST RAPHAEL Administration Senna 17.2 mg 12/12/24 09:00 12/16/24 08:06 Sennosides 8.6 Mg Tablet PO Not Given DAILY RAPHAEL PFSH Acute 2 PFSH: Medical History (Updated 12/16/24 @ 21:30 by Anaid Thompson MD) Asthma Osteoarthritis of left knee Statin intolerance Osteoarthritis of right hip severe on imaging; Hx of deep venous thrombosis right leg Chronic venous insufficiency of lower extremity R leg; hx of DVT this leg Disability of walking Aortic stenosis Osteoporosis didn't tolerate oral bisphosphonates; did prolia for 5 yrs; she doesn't want to do any more DEXAs Bradycardia sees cardio [facility] Carotid atherosclerosis bilateral mild on US 04/08 Chronic atrial fibrillation Chest pain Symptomatic bradycardia Anticoagulation adequate with anticoagulant therapy COPD (chronic obstructive pulmonary disease) Pulmonary arterial hypertension Sleep apnea not using CPAP; sleeps in recliner Hypertension CAD (coronary artery disease) seeing cardio in [place] [facility] Surgical History Status post laparoscopic cholecystectomy (03/06/21) H/O left knee surgery arthroscopic H/O right knee surgery arthroscopic H/O tubal ligation History of colonoscopy with polypectomy 2016 History of esophagogastroduodenoscopy (EGD) Family History Mother Diabetes CAD (coronary artery disease) Social History Smoking and tobacco/nicotine status: never used tobacco/nicotine Second hand smoke exposure: No Alcohol intake: never Substance/Drug Use: never Lives independently: Yes Household members: none Marital status: / Number of children: 3 Highest education level completed: Some College, No Degree Current occupational status: 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 Do you think of yourself as: Straight/Heterosexual Current gender identity: Female Female Reproductive History: Spontaneous abortions: No Vitals/I&O/Wt Last Vital Signs Temp 98.8 F 12/16/24 19:28 Pulse 65 12/16/24 20:15 Resp 18 12/16/24 20:15 BP 125/47 12/16/24 20:15 Pulse Ox 90 12/16/24 20:15 O2 Del Method Mechanical Ventilation 12/16/24 20:15 O2 Flow Rate 2 12/15/24 04:30 FiO2 100 12/16/24 20:15 12/16/24 12/16/24 12/16/24 06:59 14:59 22:59 Intake Total 1945.009 / 5204.875 1544.833 / 1544.833 574.65 / 2119.483 Output Total 475 / 575 550 / 550 Balance 1470.009 / 4629.875 1544.833 / 1544.833 24.65 / 1569.483 Weight last 48 hrs Weight 96 kg Weight 91.5 kg Physical Exam 2 Narrative: Intubated, sedated Urinary Catheter Management: Gregory: Cath Placed During This Visit: yes Reason for Continuing Indwelling Catheter: Accurate Measurement of Urinary Output in Critically Ill Patients Urinary Catheter Date of Insertion: 12/14/24 Urinary Catheter Time of Insertion: 22:45 Data 12/16/24 20:51 12/16/24 15:47 Micro: Microbiology 12/15/24 09:55 Gram Stain - Final Sputum - Endotracheal Tube Aspirate Sputum Culture - Preliminary 12/15/24 08:25 Urine Culture - Preliminary Urine Catheterized 12/15/24 00:39 Blood Culture - Preliminary Blood NEGATIVE TO DATE 12/15/24 00:34 Blood Culture - Preliminary Blood NEGATIVE TO DATE A&P Assessment and plan (1) SRINI (acute kidney injury): 1. Acute kidney injury: Probably ATN in the setting of shock and sepsis. Patient currently on pressors, oliguric. On 100% FiO2. -Noted patient has progressive deterioration of clinical course since admission. She is currently DNR, will discuss with patient's family regarding options including conservative management versus trial of temporary dialysis. For now we will give as needed doses of IV Lasix and monitor renal function. 2. Shock, hypovolemic in the setting of blood loss 3. Acute on chronic respiratory failure currently on vent at 100% FiO2 4. History of coronary artery disease, CHF and pulmonary hypertension 5. Anemia, Patient is currently DNR. Patient evaluated using audiovisual cart. Time spent 40 minutes. Consult Attestations 2 Medical Necessity Statement: per mediicne team Coding Level of Care Code Acute Code for [facility] Diagnoses SRINI (acute kidney injury) N17.9
[2024-12-16] MEDS: FUROsemide 10 mg/mL SDV 10mL 60 MG IVP (22:21)
[2024-12-16] MEDS: norepinephrine 4 MG/250 ML BAG 15 MG IV (23:58)
[2024-12-17] VITALS (107 sets, daily range): BP systolic 83–117; BP diastolic 36–61; PULSE 56–89; RESP 16–19; TEMP 36.9–37.6; O2SAT 93–100
[2024-12-17] MEDS: chlorhexidine gluconate 4% Btl 118 mL 1 APPLIC TOPICAL (01:51)
[2024-12-17] MEDS: ipratropium-albuterol 3 mL Neb INHALATION ×4 (03:12→19:40)
[2024-12-17] MEDS: fentaNYL 1,000 MCG/100 ML BAG 7.5 MCG IV ×2 (03:32→14:47)
[2024-12-17 05:38] LABS: Mean Corpuscular HGB Conc 32.9 g/dL (30-55); Mean Corpuscular Hemoglobin 27.4 pg (27-33); Mean Corpuscular Volume 83.3 fl (85-98); Mean Platelet Volume 10.9 fL (7.4-10.4); Platelet Count 141 10^3/cmm (157-399); Red Blood Count 3.36 10^6/uL (3.85-5.65); Red Cell Distribution Width 18.9 % (12.1-15.1); White Blood Count 18.29 10^3/uL (3.29-11.43)
[2024-12-17 05:55] LABS: Albumin Level 2.8 g/dL (3.5-5.2); Alkaline Phosphatase 93 U/L (35-105); Anion Gap 21.2 (5-19); Calcium 7.9 mg/dL (8.5-10.5); Carbon Dioxide 21 mmol/L (22-29); Chloride 99 mmol/L (98-107); Creatinine Clr Calc Pharmacy 12.9608; Glucose 125 mg/dL (65-115); Osmolality Calculated 311 mOsm/kg (285-295); Potassium 4.2 mmol/L (3.5-5.1); Sodium 137 mmol/L (136-145); Total Bilirubin 1.2 mg/dL (0.15-1.2); Total Protein 4.8 g/dL (6.6-8.7)
[2024-12-17 05:57] LABS: Blood Urea Nitrogen 85 mg/dL (8-23)
[2024-12-17 05:58] LABS: Phosphorus 6.9 mg/dL (2.5-4.5)
[2024-12-17] MEDS: pantoprazole 40 mg SDV IVP (06:02)
[2024-12-17 06:06] LABS: Absolute Segmented Neutrophil 12.3 10/cmm (1.6-7.1); Band Neutrophils Absolute 2.6 10^3/cmm (0.0-1.2); Eosinophils 0 %; Lymphocytes 6 %; Monocytes Absolute 0.4 10^3/cmm (0.1-0.6); Segmented Neutrophils 67 %; Slide Review Slide Review Perform; Total Cells Counted 100 (0-100)
[2024-12-17 06:07] LABS: Absolute Neutrophil 14.8 10^3/cmm (1.4-6.5); Hypochromasia 1+; Platelet Estimate Normal (Normal)
[2024-12-17 06:09] LABS: Alanine Aminotransferase 918 U/L (0-33); Aspartate Amino Transferase 727 U/L (0-32)
--- NOTE | 2024-12-17 09:16 | P.PN_ITS ---
Subjective 2 Subjective: No significant clinical changes. Received unit of blood yesterday, hemoglobin appears to be stable at 9. Vitals/I&O/Wt Last Vital Signs Temp 99.6 F 12/17/24 04:04 Pulse 77 12/17/24 08:15 Resp 18 12/17/24 08:10 BP 93/53 12/17/24 06:00 Pulse Ox 99 12/17/24 08:10 O2 Del Method Mechanical Ventilation 12/17/24 08:05 O2 Flow Rate 2 12/15/24 04:30 FiO2 35 12/17/24 08:10 12/16/24 12/17/24 12/17/24 22:59 06:59 14:59 Intake Total 739.675 / 2284.508 320.050 / 2604.558 Output Total 550 / 550 400 / 950 Balance 189.675 / 1734.508 -79.950 / 1654.558 Weight last 48 hrs Weight 217 lb 12.8 oz Weight 211 lb 10.3 oz Physical Exam 2 Narrative: Intubated and sedated, abdominal exam is benign she does have some induration on the right side of the abdomen that appears to be slightly improved from yesterday. Urinary Catheter Management: Gregory: Cath Placed During This Visit: yes Reason for Continuing Indwelling Catheter: Accurate Measurement of Urinary Output in Critically Ill Patients Urinary Catheter Date of Insertion: 12/14/24 Urinary Catheter Time of Insertion: 22:45 Data 12/17/24 04:30 12/17/24 04:30 Micro: Microbiology 12/11/24 22:57 Blood Culture - Final Blood NO GROWTH AFTER 5 DAYS 12/11/24 00:00 Blood Culture - Final Blood NO GROWTH AFTER 5 DAYS 12/15/24 09:55 Gram Stain - Final Sputum - Endotracheal Tube Aspirate Sputum Culture - Preliminary 12/15/24 08:25 Urine Culture - Preliminary Urine Catheterized A&P Assessment and plan (1) Rectus sheath hematoma: (2) Nontraumatic retroperitoneal hematoma: Plan 79-year-old female with COPD exacerbation and large retroperitoneal bleed as well as rectus sheath hematoma. Overall poor prognosis. Patient currently DNR. Awaiting for arrival of family. No surgical intervention is indicated at this time. Continue conservative management as guided per medical team. Attestations 2 Medical Necessity Statement*: Per medical team Coding Level of Care Code Acute Code for [facility] Diagnoses Rectus sheath hematoma S30.1XXA Nontraumatic retroperitoneal hematoma K68.3
[2024-12-17] MEDS: piperacillin-tazobactam 3.375 GM in sodium chloride 0.9% (plus) 50 ML IV ×2 (09:24→21:25)
[2024-12-17] MEDS: sennosides 8.6 mg Tablet 17.2 MG PO (09:25)
--- NOTE | 2024-12-17 10:10 | P.PN_ITS ---
Subjective 2 Subjective: remains on vent on Levo 8 mcg Medications: Reviewed: Yes Vitals/I&O/Wt Last Vital Signs Temp 99.6 F 12/17/24 04:04 Pulse 75 12/17/24 09:45 Resp 18 12/17/24 08:10 BP 87/45 12/17/24 09:45 Pulse Ox 95 12/17/24 09:45 O2 Del Method Mechanical Ventilation 12/17/24 08:05 O2 Flow Rate 2 12/15/24 04:30 FiO2 35 12/17/24 08:10 12/16/24 12/17/24 12/17/24 22:59 06:59 14:59 Intake Total 739.675 / 2284.508 320.050 / 2604.558 Output Total 550 / 550 400 / 950 Balance 189.675 / 1734.508 -79.950 / 1654.558 Weight last 48 hrs Weight 98.792 kg Weight 96 kg Physical Exam 2 Narrative: Intubated, sedated Urinary Catheter Management: Gregory: Cath Placed During This Visit: yes Reason for Continuing Indwelling Catheter: Accurate Measurement of Urinary Output in Critically Ill Patients Urinary Catheter Date of Insertion: 12/14/24 Urinary Catheter Time of Insertion: 22:45 Data 12/17/24 04:30 12/17/24 04:30 Micro: Microbiology 12/11/24 22:57 Blood Culture - Final Blood NO GROWTH AFTER 5 DAYS 12/11/24 00:00 Blood Culture - Final Blood NO GROWTH AFTER 5 DAYS 12/15/24 09:55 Gram Stain - Final Sputum - Endotracheal Tube Aspirate Sputum Culture - Preliminary 12/15/24 08:25 Urine Culture - Preliminary Urine Catheterized A&P Assessment and plan (1) SRINI (acute kidney injury): 1. Acute kidney injury: Probably ATN in the setting of shock and sepsis. Patient currently on pressors, oliguric. On 100% FiO2. -Noted patient has progressive deterioration of clinical course since admission. She is currently DNR, will d/w patient's family regarding options including conservative management versus trial of temporary dialysis. Famly arriving this afternoon For now we will give as needed doses of IV Lasix and monitor renal function. 2. Shock, hypovolemic in the setting of blood loss 3. Acute on chronic respiratory failure currently on vent at 100% FiO2 4. History of coronary artery disease, CHF and pulmonary hypertension 5. Anemia, Patient is currently DNR. Patient evaluated using audiovisual cart. Time spent 40 minutes. Attestations 2 Medical Necessity Statement*: per medicine Coding Level of Care Code Acute Code for [facility] Diagnoses SRINI (acute kidney injury) N17.9
[2024-12-17 17:11] LABS: Albumin Level 2.7 g/dL (3.5-5.2); Alkaline Phosphatase 74 U/L (35-105); Anion Gap 21.4 (5-19); Aspartate Amino Transferase 538 U/L (0-32); Carbon Dioxide 21 mmol/L (22-29); Chloride 99 mmol/L (98-107); Globulin 1.9 g/dL (1.3-4.6); Glucose 119 mg/dL (65-115); Osmolality Calculated 316 mOsm/kg (285-295); Potassium 4.4 mmol/L (3.5-5.1); Sodium 137 mmol/L (136-145); Total Protein 4.6 g/dL (6.6-8.7)
[2024-12-17 17:15] LABS: Blood Urea Nitrogen 99 mg/dL (8-23)
[2024-12-17 17:32] LABS: Alanine Aminotransferase 807 U/L (0-33)
--- NOTE | 2024-12-17 17:48 | P.PN_ITS ---
Subjective 2 Subjective: Seen today. Urine output 950 overnight. Patient's kidney function is worsening. Vitals/I&O/Wt Last Vital Signs Temp 99.6 F 12/17/24 04:04 Pulse 72 12/17/24 14:00 Resp 18 12/17/24 16:00 BP 95/49 12/17/24 14:00 Pulse Ox 96 12/17/24 15:53 O2 Del Method Mechanical Ventilation 12/17/24 13:50 O2 Flow Rate 2 12/15/24 04:30 FiO2 28 12/17/24 15:53 12/17/24 12/17/24 12/17/24 06:59 14:59 22:59 Intake Total 320.050 / 2604.558 64.625 / 64.625 Output Total 400 / 950 Balance -79.950 / 1654.558 64.625 / 64.625 Weight last 48 hrs Weight 98.792 kg Weight 96 kg Physical Exam 2 Narrative: Intubated sedated Lungs clear to auscultation bilaterally with mild rhonchi on right side Normal S1-S2, regularly irregular, rate controlled, Ventilator dependent, FiO2 35% Abdomen: Generally soft however very large right hemiabdomen induration consistent with rectus sheath hematoma, no large amount of ecchymosis present on flanks or groin area. Extremities: Base edema bilateral lower extremities Urinary Catheter Management: Gregory: Cath Placed During This Visit: yes Reason for Continuing Indwelling Catheter: Accurate Measurement of Urinary Output in Critically Ill Patients Urinary Catheter Date of Insertion: 12/14/24 Urinary Catheter Time of Insertion: 22:45 Data 12/17/24 04:30 12/17/24 16:10 Micro: Microbiology 12/15/24 09:55 Gram Stain - Final Sputum - Endotracheal Tube Aspirate Sputum Culture - Final 12/15/24 08:25 Urine Culture - Final Urine Catheterized 12/11/24 22:57 Blood Culture - Final Blood NO GROWTH AFTER 5 DAYS 12/11/24 00:00 Blood Culture - Final Blood NO GROWTH AFTER 5 DAYS A&P Assessment and plan (1) Hypertension: Qualifiers: Hypertension type: primary hypertension Qualified Code(s): I10 - Essential (primary) hypertension (2) CAD (coronary artery disease): Qualifiers: Coronary Disease-Associated Artery/Lesion type: [place] artery [place] vs. transplanted heart: [place] heart Associated angina: without angina Qualified Code(s): I25.10 - Atherosclerotic heart disease of [place] coronary artery without angina pectoris (3) Atrial fibrillation: Qualifiers: Atrial fibrillation type: longstanding persistent Qualified Code(s): I 48.11 - Longstanding persistent atrial fibrillation (4) Rectus sheath hematoma: (5) Nontraumatic retroperitoneal hematoma: (6) COPD (chronic obstructive pulmonary disease): Qualifiers: COPD type: emphysema Emphysema type: unspecified Qualified Code(s): J 43.9 - Emphysema, unspecified (7) Ischemia reperfusion injury of liver: (8) Renal failure: (9) Ventilator dependent: (10) Acute respiratory failure: (11) Hemorrhagic shock: (12) Lactic acidosis: (13) Atrial fibrillation with RVR: (14) DNR (do not resuscitate): (15) Goals of care, counseling/discussion: (16) ELBA (obstructive sleep apnea): (17) Pulmonary hypertension: (18) NSTEMI (non-ST elevated myocardial infarction): (19) Demand ischemia: (20) Chronic anticoagulation: Plan Lelia Mcguire is a 79 yo woman w/ CAD, chronic Afib,chronic HFpEF, Asthma, pulm HTN, ELBA not on CPAP because it was recalled, HTN who presents to the ED on 12/11/2024 w/ complaints 2 day of productive cough of yellow sputum. Acute hypoxic respiratory failure: She normally does not require O2 at home. Currently on 3L, with witnessed O2 desaturations while speaking during her HPI interview. Will continue to monitor. Asthma exacerbation: Notes document COPD, but per Dr. Sheridan's note in 04/2020, she has Asthma, Th2 phenotype. Patient has not seen Pulmonology since Dr. Sheridan left. - F/u BCx, sputum cx. - BCx negative to date. - Continue Ceftriaxone, Doxycycline, duonebs, PPI, Solumedrol - Started on Azithromycin 500mg PO daily (12/14) - Solumedrol switch from q8H to q12H (12/14) Chronic AFib: -Continue home meds HTN CAD pulm HTN - Resume home meds as appropriate - bilateral lower extremity edema present - trial on Lasix 40 IV x 1 (12/12) - started Lasix 40mg PO daily (12/13) - Patient appears over-diuresed. Will discontinue Lasix (12/14). - Will give fluid 500cc NS bolus (12/14) ELBA - not on CPAP because it was recalled. hx of R. lower extremity DVT -I do not see any records of this. Hx of prolonged bleeding with procedures: she tells of a hx of bleeding from 9 to 12hrs after dental procedures. She states that her INR at a time was 8. This was back in 1989, when she lived in [facility]. She may need to get referred to Hematology for further evaluation. DVTppx: Lovenox GI ppx: PPI 12/12/2024 -Continue management as per H&P. ? Patient does have mild to moderate mitral regurgitation on echo from March 2024. ? Bilateral lower extremities edema present. I will order Lasix 40 IV x 1 as a trial. ? Repeat echo. Suspect mitral regurgitation worsening. 12/13/2024 - echo pending feeling slightly better significant wheezing still present continue steroids, ceftriaxone azithromycin 12/14/2024 - echo pending -Breathing aspect by the patient is feeling better. There were no wheezes present on exam. Lungs are clear to auscultation bilaterally. ? Switch to Solu-Medrol 40 daily. -continue steroids, ceftriaxone azithromycin -Hold Lasix at this time. -administer 500cc NS bolus -consult PT and plan to discharge tomorrow ? Patient would like an enema today. 12/15/2024 #Hemorrhagic shock #Large retroperitoneal hematoma #Rectus sheath hematoma #Hypovolemic shock #Ischemic hepatopathy #Acute tubular necrosis/renal failure #Ventilator dependent respiratory failure #Atrial fibrillation with RVR #Recent COPD exacerbation #History of hypertension, coronary disease, pulmonary hypertension #History obstructive sleep apnea #NSTEMI 2/2 demand ischemia #Chronic anticoagulation -Patient has developed hemorrhagic shock secondary to large retroperitoneal hematoma which is thought to be a spontaneous bleed and nontraumatic at this time. This is thought to be most likely secondary to her chronic anticoagulation. Patient did not have a fall during hospital stay. She may have had a fall prior to coming to the hospital however that was not reported on admission. Unsure of the cause of this bleed at this time. ? For acute hypoxic respiratory failure she was intubated today with rapid sequence intubation by ER. ? CT chest on pelvis does show a rectus sheath hematoma retroperitoneal bleed 11 x 12 x 25 ? Continue on Levophed and vasopressin and wean off as able ? Start normal saline 125 cc/h. Stress dose steroids given hydrocortisone 100 x 2 ? 3 units RBCs given, 2 unit FFP, 1 unit platelet, 2 times TXA. 2 units of O- blood were ordered as well. ? We will check CBC every 6 hours ? Check CMP twice daily, magnesium twice daily ? Lactic acid initially 13.1 trending down to 7.7. ? Initially gas 7.09 however now starting to improve. ? Continue on amiodarone drip at this time for A-fib with RVR ? Not any CPAP at home. Also does have a history of pulmonary hypertension ? Stop Lovenox. Discussed with pharmacy. No benefit to give reversal agent protamine if more than 12 hours since last dose. Last dose of Lovenox was last night at midnight. ? Patient has developed ischemic hepatopathy with worsening liver enzymes greater than 1000. ? Continue Gregory catheter to measure accurate output. So far has not had much urine output overnight. This is most likely secondary to ATN secondary to severe hypotension. ? Multiple discussions have taken place with the family over the phone regarding transfer to higher level of care for possible IR intervention. Family elects not to transfer patient at this time due to high risk of deterioration during transfer. Also discussion regarding quality of life and further prognosis going forward. Daughter coming in from [place] and would like to be able to say goodbye to her mom. Please see HPI portion of this note for further details. ? Patient daughter has elected to change CODE STATUS to DNR/DNI at this time. Allow natural . ? Continue to transfuse patient as warranted. ? General Surgery consulted recommendations appreciated. ? Continue supportive care while family arrives. ? Elevated troponin initial troponin 300, delta negative at 2 hours. Most likely secondary to severe demand ischemia from severe hypotension. ? Echo reviewed. Limited echo ordered for today. ? Continue broad-spectrum antibiotics vancomycin and Zosyn to empirically cover for possible septic shock. ? Most likely cause of shock is hemorrhagic hypovolemic at this point. Prognosis remains poor DVT prophylaxis: SCDs GI prophylaxis: Protonix 40 IV daily. 12/16/2024 ?Vasopressor requirements are starting to come down. ? Continue to transfuse based on hemodynamic parameters and hemoglobin. ? General Surgery recommendations appreciated. ? Urine output starting to increase, lactic acid down to 3.0. White count trended down to 20, hemoglobin 10.4 around 1 PM this afternoon. Patient is on minimal vent settings. Creatinine 3.2 today. BUN 69. Anion gap 26.8. Bicarb 18. AST ALT elevated however slightly trending downward compared to yesterday. ? Continue to provide supportive care. Family declined transfer to higher level of care prior embolization. ? Await family to arrive to make further decisions. ? Continue Zosyn, vancomycin at this time. ? Continue to wean off pressors as able. ? Did discuss with family yesterday to check a CT abdomen pelvis with IV contrast to look for bleeding source however family concerned once we physically move the patient possibility of bleeding increase or hematoma destabilizing. Since patient is a DNR/DNI at this point they would like to hold off on that at this point so they are able to come and see her. Had a detailed discussion with family yesterday regarding CT with IV contrast. Family also concerned secondary to patient's iodine allergy. I did tell them that we could premedicate patient. I will hold off on CT at this time. DNR/DNI SCDs Protonix 40 IV daily Remains critically ill in ICU, prognosis is poor. 12/17/2024 Patient is daughter arrived. Had a long discussion with her regarding management going forward. Discussed with her the need of dialysis and risks and benefits. She states that she would like to think about it and would let us know tomorrow morning. Patient is down to 7 mics of Levophed. Renal function is worsening. BUN and 99, creatinine 4.8. Continue to wean off pressors as able. Liver enzymes are improving. Patient remains intubated and sedated. Bleeding may have stopped. Hemoglobin has been stable around 9 range. Continue to provide supportive care at this time. Continue vancomycin and Zosyn. Further management to be decided after discussion with daughter in the morning. In the meantime if patient deteriorates or ends up having a cardiac arrest daughter would like to have a DO NOT RESUSCITATE order and to let patient pass naturally at that point. We will call daughter in case any significant event happens before she comes in tomorrow morning. Attestations 2 Medical Necessity Statement*: Critically ill in ICU, hemorrhagic shock, vent dependent respiratory failure, ischemic hepatopathy, acute tubular necrosis, A-fib with RVR, NSTEMI Critical Care Time: The high probability of a clinically significant, sudden or life threatening deterioration of the patient's [cardiovascular, respiratory, hematologic, renal, pulmonary] system(s) required my full and direct attention, intervention and personal management. The critical care time is as shown. This time is in addition to time spent performing any reported procedures but includes the following: [x] Data and vital sign review and interpretation [x] Patient assessment, examination and intervention [x] Documentation [x] Medication orders and management Critical Care Time (min): 45 Almost 1 hour spent talking to daughter on the phone via 3 Phone calls, patient was visited at bedside multiple times throughout the day (at least 5 times). Multiple discussions held with nursing staff, ER doctor, general surgeon, programming intern at [facility], [facility] transfer line, [facility] transfer line. Coding Level of Care Code Acute Code for Chg Fwd Diagnoses Primary hypertension I10 Hypertension type: primary hypertension Coronary artery disease involving [place] coronary artery of [place] heart without angina pectoris I25.10 Coronary Disease-Associated Artery/Lesion type: [place] artery [place] vs. transplanted heart: [place] heart Associated angina: without angina Longstanding persistent atrial fibrillation I48.11 Atrial fibrillation type: longstanding persistent Rectus sheath hematoma S30.1XXA Nontraumatic retroperitoneal hematoma K68.3 Pulmonary emphysema, unspecified emphysema type J43.9 COPD type: emphysema Emphysema type: unspecified Ischemia reperfusion injury of liver K91.81 Renal failure N19 Ventilator dependent Z99.11 Acute respiratory failure J96.00 Hemorrhagic shock R57.8 Lactic acidosis E87.20 Atrial fibrillation with RVR I48.91 DNR (do not resuscitate) Z66 Goals of care, counseling/discussion Z71.89 ELBA (obstructive sleep apnea) G47.33 Pulmonary hypertension I27.20 NSTEMI (non-ST elevated myocardial infarction) I21.4 Demand ischemia I24.89 Chronic anticoagulation Z79.01
[2024-12-17] MEDS: norepinephrine 4 MG/250 ML BAG 30 MG IV (18:00)
[2024-12-17] MEDS: midazolam hcl 100 MG/100 ML BAG IV (19:56)
[2024-12-17 21:01] LABS: Glucose Point of Care 127 mg/dL (70-110)
--- NOTE | 2024-12-17 23:46 | PC.NURSE ---
HR dropping into 40's: Notified Dr. Sen of HR intermittently dipping into the 40's @2345. Updated on current vital signs and drip rates. No new orders at this time.
[2024-12-18] VITALS (108 sets, daily range): BP systolic 98–133; BP diastolic 39–58; PULSE 55–75; RESP 16–20; TEMP 36.3–36.9; O2SAT 92–100
[2024-12-18] MEDS: ipratropium-albuterol 3 mL Neb INHALATION ×4 (02:02→20:26)
[2024-12-18] MEDS: chlorhexidine gluconate 4% Btl 118 mL 1 APPLIC TOPICAL (02:25)
[2024-12-18] MEDS: norepinephrine 4 MG/250 ML BAG 30 MG IV (03:33)
[2024-12-18 03:58] LABS: Basophils # 0.1 10^3/uL (0.0-0.1); Basophils % 0.4 %; Eosinophils % 0.2 %; Lymphocytes # 1.8 10^3/uL (0.8-4.8); Lymphocytes % 9.3 %; Mean Corpuscular HGB Conc 32.3 g/dL (30-55); Mean Corpuscular Hemoglobin 27.5 pg (27-33); Mean Corpuscular Volume 85.2 fl (85-98); Mean Platelet Volume 11.2 fL (7.4-10.4); Monocytes # 1.9 10^3/uL (0.2-0.9); Monocytes % 9.7 %; Neutrophils # 13.39 10^3/uL (1.8-7.7); Nucleated Red Blood Cells # 0.3 /100WBC; Nucleated Red Blood Cells % 1.4 %; Platelet Count 126 10^3/cmm (157-399); Red Blood Count 3.05 10^6/uL (3.85-5.65); Red Cell Distribution Width 19.1 % (12.1-15.1); White Blood Count 19.41 10^3/uL (3.29-11.43)
[2024-12-18] MEDS: fentaNYL 1,000 MCG/100 ML BAG 5 MCG IV (03:58)
[2024-12-18 04:08] LABS: Slide Review Slide Review Perform
[2024-12-18 04:18] LABS: Albumin Level 2.6 g/dL (3.5-5.2); Alkaline Phosphatase 60 U/L (35-105); Anion Gap 22.8 (5-19); Aspartate Amino Transferase 455 U/L (0-32); Calcium 8.2 mg/dL (8.5-10.5); Carbon Dioxide 21 mmol/L (22-29); Chloride 102 mmol/L (98-107); Creatinine Clr Calc Pharmacy 10.3763; Globulin 2.2 g/dL (1.3-4.6); Glucose 114 mg/dL (65-115); Osmolality Calculated 328 mOsm/kg (285-295); Potassium 4.8 mmol/L (3.5-5.1); Sodium 141 mmol/L (136-145); Total Protein 4.8 g/dL (6.6-8.7)
[2024-12-18 04:29] LABS: Alanine Aminotransferase 760 U/L (0-33)
[2024-12-18 04:44] LABS: Blood Urea Nitrogen 110 mg/dL (8-23)
[2024-12-18 05:53] LABS: ABG PCO2 35.5 mmHg (35-45); ABG PH Result 7.38 (7.35-7.45); Alveolar-Arterial Oxygen Gradi 20.9 mmHg (5-10); Arterial Blood Gas Hematocrit 23.1 % (37-47); Base Excess ABG -3.9 mmol/L (-2.0-2.0); Blood Gas Allen Test Pos; Blood Gas Operator Identificat JDB; Blood Gas Sample Site Radial, right; Blood Gas Sample Type Arterial; Blood Gas Tidal Volume 0.45; Carboxyhemoglobin 2.3 %THgb (0.4-20.1); HCO3 ABG 20.8 mmol/L (22-26); HGB O2 Sat 94.4 % (95-100); Ionized Calcium Level - ABG 1.1 mmol/L (1.1-1.4); Methemoglobin 0.3 % (0.4-1.5); Oxygen Device VENT; Oxygen Saturation ABG 96.9; PO2 ABG 79.3 mmHg (80.0-100.0); PO2 FiO2 Ratio Arterial Blood 198; Potassium Level - ABG 4.3 mmol/L (3.5-5.0); Total Hemoglobin 7.5 g/dL (12-16)
[2024-12-18] MEDS: pantoprazole 40 mg SDV IVP (06:23)
[2024-12-18] MEDS: sennosides 8.6 mg Tablet 17.2 MG PO (09:38)
[2024-12-18] MEDS: piperacillin-tazobactam 3.375 GM in sodium chloride 0.9% (plus) 50 ML IV ×2 (09:40→23:34)
--- NOTE | 2024-12-18 12:58 | PM.PN ---
Subjective Subjective: Seen this morning. Down to 4 mics of Levophed at this time. WBC 19,000 hemoglobin 8.40, platelets 126, BUN 110, creatinine 5.2. Patient intubated and sedated. No family present at bedside this morning. Urine output 300 cc overnight. AST 455 ALT 760 trending down. Patient is on minimal vent settings. Hemoglobin 8.4 this morning Vitals/I&O/Wt Last Vital Signs Temp 97.7 F 12/18/24 12:00 Pulse 57 L 12/18/24 12:15 Resp 18 12/18/24 12:00 BP 118/49 12/18/24 12:15 Pulse Ox 99 12/18/24 12:15 O2 Del Method Mechanical Ventilation 12/18/24 08:25 O2 Flow Rate 2 12/15/24 04:30 FiO2 28 12/18/24 11:57 12/17/24 12/18/24 12/18/24 22:59 06:59 14:59 Intake Total 197.025 / 372.525 341.225 / 713.750 6.517 / 6.517 Output Total 300 / 300 250 / 550 Balance -102.975 / 72.525 91.225 / 163.750 6.517 / 6.517 Weight last 48 hrs Weight 98.792 kg Weight 98.792 kg Physical Exam Narrative: Intubated sedated Lungs clear to auscultation bilaterally with mild rhonchi on right side Normal S1-S2, regularly irregular, rate controlled, Ventilator dependent, FiO2 28% Abdomen: Generally soft and hemiabdomen intubation has improved significantly Extremities: 2+ edema bilateral lower extremities Urinary Catheter Management: Gregory: Cath Placed During This Visit: yes Reason for Continuing Indwelling Catheter: Accurate Measurement of Urinary Output in Critically Ill Patients Urinary Catheter Date of Insertion: 12/14/24 Urinary Catheter Time of Insertion: 22:45 Data 12/18/24 02:10 12/18/24 02:10 Micro: Microbiology 12/17/24 14:05 Gram Stain - Final Sputum - Endotracheal Tube Aspirate 12/15/24 09:55 Gram Stain - Final Sputum - Endotracheal Tube Aspirate Sputum Culture - Final 12/15/24 08:25 Urine Culture - Final Urine Catheterized A&P Assessment and plan (1) Hypertension: Qualifiers: Hypertension type: primary hypertension Qualified Code(s): I10 - Essential (primary) hypertension (2) CAD (coronary artery disease): Qualifiers: Coronary Disease-Associated Artery/Lesion type: [place] artery [place] vs. transplanted heart: [place] heart Associated angina: without angina Qualified Code(s): I25.10 - Atherosclerotic heart disease of [place] coronary artery without angina pectoris (3) Atrial fibrillation: Qualifiers: Atrial fibrillation type: longstanding persistent Qualified Code(s): I48.11 - Longstanding persistent atrial fibrillation (4) Rectus sheath hematoma: (5) Nontraumatic retroperitoneal hematoma: (6) COPD (chronic obstructive pulmonary disease): Qualifiers: COPD type: emphysema Emphysema type: unspecified Qualified Code(s): J43.9 - Emphysema, unspecified (7) Ischemia reperfusion injury of liver: (8) Renal failure: (9) Ventilator dependent: (10) Acute respiratory failure: (11) Hemorrhagic shock: (12) Lactic acidosis: (13) Atrial fibrillation with RVR: (14) DNR (do not resuscitate): (15) Goals of care, counseling/discussion: (16) ELBA (obstructive sleep apnea): (17) Pulmonary hypertension: (18) NSTEMI (non-ST elevated myocardial infarction): (19) Demand ischemia: (20) Chronic anticoagulation: Plan Lelia Mcguire is a 79 yo woman w/ CAD, chronic Afib,chronic HFpEF, Asthma, pulm HTN, ELBA not on CPAP because it was recalled, HTN who presents to the ED on 12/11/2024 w/ complaints 2 day of productive cough of yellow sputum. Acute hypoxic respiratory failure: She normally does not require O2 at home. Currently on 3L, with witnessed O2 desaturations while speaking during her HPI interview. Will continue to monitor. Asthma exacerbation: Notes document COPD, but per Dr. Sheridan's note in 04/2020, she has Asthma, Th2 phenotype. Patient has not seen Pulmonology since Dr. Sheridan left. - F/u BCx, sputum cx. - BCx negative to date. - Continue Ceftriaxone, Doxycycline, duonebs, PPI, Solumedrol - Started on Azithromycin 500mg PO daily (12/14) - Solumedrol switch from q8H to q12H (12/14) Chronic AFib: -Continue home meds HTN CAD pulm HTN - Resume home meds as appropriate - bilateral lower extremity edema present - trial on Lasix 40 IV x 1 (12/12) - started Lasix 40mg PO daily (12/13) - Patient appears over-diuresed. Will discontinue Lasix (12/14). - Will give fluid 500cc NS bolus (12/14) ELBA - not on CPAP because it was recalled. hx of R. lower extremity DVT -I do not see any records of this. Hx of prolonged bleeding with procedures: she tells of a hx of bleeding from 9 to 12hrs after dental procedures. She states that her INR at a time was 8. This was back in 1989, when she lived in [place]. She may need to get referred to Hematology for further evaluation. DVTppx: Lovenox GI ppx: PPI 12/12/2024 -Continue management as per H&P. ? Patient does have mild to moderate mitral regurgitation on echo from March 2024. ? Bilateral lower extremities edema present. I will order Lasix 40 IV x 1 as a trial. ? Repeat echo. Suspect mitral regurgitation worsening. 12/13/2024 - echo pending feeling slightly better significant wheezing still present continue steroids, ceftriaxone azithromycin 12/14/2024 - echo pending -Breathing aspect by the patient is feeling better. There were no wheezes present on exam. Lungs are clear to auscultation bilaterally. ? Switch to Solu-Medrol 40 daily. -continue steroids, ceftriaxone azithromycin -Hold Lasix at this time. -administer 500cc NS bolus -consult PT and plan to discharge tomorrow ? Patient would like an enema today. 12/15/2024 #Hemorrhagic shock #Large retroperitoneal hematoma #Rectus sheath hematoma #Hypovolemic shock #Ischemic hepatopathy #Acute tubular necrosis/renal failure #Ventilator dependent respiratory failure #Atrial fibrillation with RVR #Recent COPD exacerbation #History of hypertension, coronary disease, pulmonary hypertension #History obstructive sleep apnea #NSTEMI 2/2 demand ischemia #Chronic anticoagulation -Patient has developed hemorrhagic shock secondary to large retroperitoneal hematoma which is thought to be a spontaneous bleed and nontraumatic at this time. This is thought to be most likely secondary to her chronic anticoagulation. Patient did not have a fall during hospital stay. She may have had a fall prior to coming to the hospital however that was not reported on admission. Unsure of the cause of this bleed at this time. ? For acute hypoxic respiratory failure she was intubated today with rapid sequence intubation by ER. ? CT chest on pelvis does show a rectus sheath hematoma retroperitoneal bleed 11 x 12 x 25 ? Continue on Levophed and vasopressin and wean off as able ? Start normal saline 125 cc/h. Stress dose steroids given hydrocortisone 100 x 2 ? 3 units RBCs given, 2 unit FFP, 1 unit platelet, 2 times TXA. 2 units of O- blood were ordered as well. ? We will check CBC every 6 hours ? Check CMP twice daily, magnesium twice daily ? Lactic acid initially 13.1 trending down to 7.7. ? Initially gas 7.09 however now starting to improve. ? Continue on amiodarone drip at this time for A-fib with RVR ? Not any CPAP at home. Also does have a history of pulmonary hypertension ? Stop Lovenox. Discussed with pharmacy. No benefit to give reversal agent protamine if more than 12 hours since last dose. Last dose of Lovenox was last night at midnight. ? Patient has developed ischemic hepatopathy with worsening liver enzymes greater than 1000. ? Continue Gregory catheter to measure accurate output. So far has not had much urine output overnight. This is most likely secondary to ATN secondary to severe hypotension. ? Multiple discussions have taken place with the family over the phone regarding transfer to higher level of care for possible IR intervention. Family elects not to transfer patient at this time due to high risk of deterioration during transfer. Also discussion regarding quality of life and further prognosis going forward. Daughter coming in from [place] and would like to be able to say goodbye to her mom. Please see HPI portion of this note for further details. ? Patient daughter has elected to change CODE STATUS to DNR/DNI at this time. Allow natural . ? Continue to transfuse patient as warranted. ? General Surgery consulted recommendations appreciated. ? Continue supportive care while family arrives. ? Elevated troponin initial troponin 300, delta negative at 2 hours. Most likely secondary to severe demand ischemia from severe hypotension. ? Echo reviewed. Limited echo ordered for today. ? Continue broad-spectrum antibiotics vancomycin and Zosyn to empirically cover for possible septic shock. ? Most likely cause of shock is hemorrhagic hypovolemic at this point. Prognosis remains poor DVT prophylaxis: SCDs GI prophylaxis: Protonix 40 IV daily. 12/16/2024 ?Vasopressor requirements are starting to come down. ? Continue to transfuse based on hemodynamic parameters and hemoglobin. ? General Surgery recommendations appreciated. ? Urine output starting to increase, lactic acid down to 3.0. White count trended down to 20, hemoglobin 10.4 around 1 PM this afternoon. Patient is on minimal vent settings. Creatinine 3.2 today. BUN 69. Anion gap 26.8. Bicarb 18. AST ALT elevated however slightly trending downward compared to yesterday. ? Continue to provide supportive care. Family declined transfer to higher level of care prior embolization. ? Await family to arrive to make further decisions. ? Continue Zosyn, vancomycin at this time. ? Continue to wean off pressors as able. ? Did discuss with family yesterday to check a CT abdomen pelvis with IV contrast to look for bleeding source however family concerned once we physically move the patient possibility of bleeding increase or hematoma destabilizing. Since patient is a DNR/DNI at this point they would like to hold off on that at this point so they are able to come and see her. Had a detailed discussion with family yesterday regarding CT with IV contrast. Family also concerned secondary to patient's iodine allergy. I did tell them that we could premedicate patient. I will hold off on CT at this time. DNR/DNI SCDs Protonix 40 IV daily Remains critically ill in ICU, prognosis is poor. 12/17/2024 Patient is daughter arrived. Had a long discussion with her regarding management going forward. Discussed with her the need of dialysis and risks and benefits. She states that she would like to think about it and would let us know tomorrow morning. Patient is down to 7 mics of Levophed. Renal function is worsening. BUN and 99, creatinine 4.8. Continue to wean off pressors as able. Liver enzymes are improving. Patient remains intubated and sedated. Bleeding may have stopped. Hemoglobin has been stable around 9 range. Continue to provide supportive care at this time. Continue vancomycin and Zosyn. Further management to be decided after discussion with daughter in the morning. In the meantime if patient deteriorates or ends up having a cardiac arrest daughter would like to have a DO NOT RESUSCITATE order and to let patient pass naturally at that point. We will call daughter in case any significant event happens before she comes in tomorrow morning. 12/18/2024 Awaiting decision from family regarding going ahead with dialysis today. Patient on minimal vent settings. She is on 4 mics of Levophed. She is on a Versed drip. I have stopped that at this time and switch to Versed 2 mg every 4 hour push to reduce the amount of medication patient is receiving. I do not believe patient is bleeding any longer secondary to hemoglobin mainly staying steadily stable. It is 8.4 this morning. This may be dilutional component since patient is 6 L positive at this time. Will have threshold to transfuse with hemoglobin less than 8. Liver enzymes are trending down. Continue empiric vancomycin and Zosyn. Stop at day 7. White count is most likely reactive and I do not believe there is any true infection at this time. Cultures are negative to date. Attestations Medical Necessity Statement*: Critically ill in ICU, hemorrhagic shock, vent dependent respiratory failure, ischemic hepatopathy, acute tubular necrosis, A-fib with RVR, NSTEMI Critical Care Time: The high probability of a clinically significant, sudden or life threatening deterioration of the patient's [cardiovascular, respiratory, hematologic, renal, pulmonary] system(s) required my full and direct attention, intervention and personal management. The critical care time is as shown. This time is in addition to time spent performing any reported procedures but includes the following: [x] Data and vital sign review and interpretation [x] Patient assessment, examination and intervention [x] Documentation [x] Medication orders and management Critical Care Time (min): 30 Almost 1 hour spent talking to daughter on the phone via 3 Phone calls, patient was visited at bedside multiple times throughout the day (at least 5 times). Multiple discussions held with nursing staff, ER doctor, general surgeon, supervisor chlorine liquefaction at [facility], [facility] transfer line, [facility] transfer line. Coding Level of Care Code Acute Code for Chg Fwd Diagnoses Primary hypertension I10 Hypertension type: primary hypertension Coronary artery disease involving [place] coronary artery of [place] heart without angina pectoris I25.10 Coronary Disease-Associated Artery/Lesion type: [place] artery [place] vs. transplanted heart: [place] heart Associated angina: without angina Longstanding persistent atrial fibrillation I48.11 Atrial fibrillation type: longstanding persistent Rectus sheath hematoma S30.1XXA Nontraumatic retroperitoneal hematoma K68.3 Pulmonary emphysema, unspecified emphysema type J43.9 COPD type: emphysema Emphysema type: unspecified Ischemia reperfusion injury of liver K91.81 Renal failure N19 Ventilator dependent Z99.11 Acute respiratory failure J96.00 Hemorrhagic shock R57.8 Lactic acidosis E87.20 Atrial fibrillation with RVR I48.91 DNR (do not resuscitate) Z66 Goals of care, counseling/discussion Z71.89 ELBA (obstructive sleep apnea) G47.33 Pulmonary hypertension I27.20 NSTEMI (non-ST elevated myocardial infarction) I21.4 Demand ischemia I24.89 Chronic anticoagulation Z79.01
[2024-12-18 14:36] LABS: Vancomycin Trough 11.6 ug/mL (10-15)
--- NOTE | 2024-12-18 15:05 | P.PN_ITS ---
Subjective 2 Subjective: on vent Levophed 4 mcg Medications: Reviewed: Yes Vitals/I&O/Wt Last Vital Signs Temp 97.7 F 12/18/24 12:00 Pulse 68 12/18/24 14:45 Resp 18 12/18/24 13:09 BP 110/49 12/18/24 14:45 Pulse Ox 98 12/18/24 14:45 O2 Del Method Mechanical Ventilation 12/18/24 13:00 O2 Flow Rate 2 12/15/24 04:30 FiO2 28 12/18/24 13:09 12/18/24 12/18/24 12/18/24 06:59 14:59 22:59 Intake Total 341.225 / 713.750 6.517 / 6.517 Output Total 250 / 550 Balance 91.225 / 163.750 6.517 / 6.517 Weight last 48 hrs Weight 98.792 kg Weight 98.792 kg Physical Exam 2 Narrative: Intubated, sedated Urinary Catheter Management: Gregory: Cath Placed During This Visit: yes Reason for Continuing Indwelling Catheter: Accurate Measurement of Urinary Output in Critically Ill Patients Urinary Catheter Date of Insertion: 12/14/24 Urinary Catheter Time of Insertion: 22:45 Data 12/18/24 02:10 12/18/24 02:10 Micro: Microbiology 12/17/24 14:05 Gram Stain - Final Sputum - Endotracheal Tube Aspirate 12/15/24 09:55 Gram Stain - Final Sputum - Endotracheal Tube Aspirate Sputum Culture - Final 12/15/24 08:25 Urine Culture - Final Urine Catheterized A&P Assessment and plan (1) SRINI (acute kidney injury): 1. Acute kidney injury: Probably ATN in the setting of shock and sepsis. Patient currently on pressors, oliguric. On 100% FiO2. -Noted patient has progressive deterioration of clinical course since admission. She is currently DNR, Awaiting familt to decide re : goals of care deandre regarding dialysis - Levophed 4 mcg , For now we will give as needed doses of IV Lasix and monitor renal function. 2. Shock, hypovolemic in the setting of blood loss 3. Acute on chronic respiratory failure currently on vent at 100% FiO2 4. History of coronary artery disease, CHF and pulmonary hypertension 5. Anemia, Patient is currently DNR. Patient evaluated using audiovisual cart. Time spent 40 minutes. Attestations 2 Medical Necessity Statement*: per medicne Coding Level of Care Code Acute Code for Chg Fwd Diagnoses SRINI (acute kidney injury) N17.9
[2024-12-18 15:30] LABS: Alanine Aminotransferase 638 U/L (0-33); Albumin Level 2.7 g/dL (3.5-5.2); Alkaline Phosphatase 61 U/L (35-105); Anion Gap 25.9 (5-19); Aspartate Amino Transferase 355 U/L (0-32); Calcium 8.3 mg/dL (8.5-10.5); Carbon Dioxide 20 mmol/L (22-29); Chloride 101 mmol/L (98-107); Creatinine Clr Calc Pharmacy 9.8103; Globulin 2.1 g/dL (1.3-4.6); Glucose 113 mg/dL (65-115); Osmolality Calculated 330 mOsm/kg (285-295); Potassium 4.9 mmol/L (3.5-5.1); Sodium 142 mmol/L (136-145); Total Protein 4.8 g/dL (6.6-8.7)
[2024-12-18 15:33] LABS: Blood Urea Nitrogen 112 mg/dL (8-23)
--- NOTE | 2024-12-18 15:37 | PC.NURSE ---
1530 All sedation off, but patient not responding to verbal commands.
[2024-12-18] MEDS: vancomycin 500 MG in sodium chloride 0.9% (plus) 100 ML 200 MG IV (15:44)
--- NOTE | 2024-12-18 15:54 | PC.NURSE ---
Addendum entered by HIEN Bernard RN 12/18/24 15:59: witness above waste at this time Original Note: 1550 Fentanyl drip stopped earlier, and now wasting remaining 61.9ml left in bag with a witness of HIEN Bernard RN. 1550 Midazolam drip stopped earlier, and now wasting remaining 77.3ml left in bag with a witness of HIEN Bernard RN.
--- NOTE | 2024-12-18 16:29 | PC.NURSE ---
1615 Nephrology, Dr Olvera called asking if family wants patient to have dialysis. I called daughter, Allyssa, and she said yes she is fine with us doing dialysis to try to help improve kidney function. I notified Dr. Dennis and Dr. Tristan. Jeannie said tomorrow am is ok to put in temp catheter for dialysis. Dr. Tristan to notify Dr. Pinon surgeon.
[2024-12-18] MEDS: midazolam 1 mg/mL INJ 2 mL 2 MG IVP (17:29)
--- NOTE | 2024-12-18 17:45 | XRR_ITS ---
PROCEDURE INFORMATION: Exam: XR Chest Exam date and time: 12/18/2024 6:03 PM Age: 79 years old Clinical indication: Other vascular access device placement or adjustment; Central line, non-tunnelled; RT trialysis cath placement TECHNIQUE: Imaging protocol: Radiologic exam of the chest. Views: 1 view. COMPARISON: CR XR chest 1V portable [id number] 12/16/2024 8:20 PM FINDINGS: Tubes, catheters and devices: Interval right IJ central venous catheter terminates at the superior cavoatrial junction. Endotracheal tube terminates 2.5 cm above the yves. Enteric tube courses below the left hemidiaphragm and terminates beyond the field of view with side hole at the stomach. Lungs: Bilateral patchy perihilar opacities and increased retrocardiac left lower lobe opacification with partial obscuration of the hemidiaphragm. Pleural spaces: Small left pleural effusion. No pneumothorax. Heart/Mediastinum: Borderline cardiomegaly. Vasculature: Aortic arch atherosclerotic calcification. Bones/joints: Degenerative change along the spine. XR/XR chest 1V portable [id number] IMPRESSION: 1. Support structures as above with interval right IJ central venous catheter terminating at the superior cavoatrial junction. 2. Bilateral patchy perihilar opacities may represent edema, possibly infectious or inflammatory process. 3. Increased retrocardiac left lower lobe opacification likely represents combination of small pleural effusion and airspace disease, which may represent atelectasis or infiltrate.
--- NOTE | 2024-12-18 18:16 | P.CONIM_ITS ---
Providers/Reason For Consult 2 Consulting Physician/Specialty*: General Surgery Reason for Consult*: Dialysis catheter placement Attending Physician: Rosa Tristan MD Primary Care Provider: Awa Frederick MD History of Present Illness History of Present Illness Lelia Mcguire is a 79 year old female critically ill, known to me for retroperitoneal and rectus sheath hematoma. Patient has been noted to have declining kidney function, she will require dialysis and family has agreed to proceed with dialysis catheter placement. Medications/Allergies Home Medications Medication Instructions Recorded Confirmed Last Taken Type cyanocobalamin (vitamin B-12) 1,000 mcg PO QPM 05/30/21 12/12/24 08/21/22 History 1,000 mcg tablet (Vitamin B-12) calcium carbonate 500 mg PO QPM 05/20/22 12/12/24 08/21/22 History cholecalciferol (vitamin D3) 50 50 mcg PO QPM 05/20/22 12/12/24 08/21/22 History mcg (2,000 unit) tablet (Vitamin D3) cetirizine 10 mg tablet 10 mg PO BID PRN allergy symptoms 06/10/23 12/12/24 Unknown Rx #180 tabs isosorbide mononitrate 30 mg 30 mg PO DAILY #90 tabs 11/26/23 12/12/24 Unknown Rx tablet,extended release 24 hr lisinopril 2.5 mg tablet 2.5 mg PO QAM #90 tabs 12/18/23 12/12/24 Unknown Rx furosemide 20 mg tablet See Rx Instructions .Route 01/07/24 12/12/24 Unknown Rx .COMPLEX #180 tabs hydrocodone 5 mg-acetaminophen 325 1 tab PO Q8H PRN pain 7 days #20 01/07/24 12/12/24 Unknown Rx mg tablet tabs potassium chloride 10 mEq 20 meq (2 x 10 mEq) PO DAILY #180 01/07/24 12/12/24 Unknown Rx tablet,extended release tabs rivaroxaban 20 mg tablet (Xarelto) See Rx Instructions .Route 01/07/24 12/12/24 Unknown Rx .COMPLEX #90 tabs nitroglycerin 0.4 mg sublingual 0.4 mg sublingual Q5M PRN chest 08/24/24 12/12/24 Unknown Rx tablet pain #25 tabs doxycycline hyclate 100 mg capsule 100 mg PO BID 10 days #20 caps 12/11/24 Unknown Rx guaifenesin 600 mg tablet, 600 mg PO BID 3 days #6 tabs 12/11/24 Unknown Rx extended release 12 hr (Mucinex) prednisone 20 mg tablet 40 mg (2 x 20 mg) PO DAILY 3 days 12/11/24 Unknown Rx #6 tabs acetaminophen 650 mg 650 mg PO Q12H 12/12/24 12/12/24 Unknown History tablet,extended release (Tylenol Arthritis Pain) Allergies Allergy/AdvReac Type Severity Reaction Status Date / Time iodine Allergy Unknown ALGY-Bliste Verified 08/30/24 07:05 r metoprolol Allergy Unknown Unknown Verified 08/30/24 07:05 alcohol Allergy ALGY-Hives Verified 08/30/24 07:05 alfalfa Allergy ALGY-Rash Verified 08/30/24 07:05 aloe vera Allergy ALGY-Bliste Verified 08/30/24 07:05 r atenolol Allergy ALGY-Swell Verified 08/30/24 07:05 Lip/Tongue/Throat bamboo Allergy ALGY-Rash Verified 08/30/24 07:05 barley Allergy ALGY-Rash Verified 08/30/24 07:05 bran Allergy ALGY-Hives Verified 08/30/24 07:05 [place] And Derivatives Allergy ALGY-Hives Verified 08/30/24 07:05 clams Allergy ALGY-Difficulty Verified 08/30/24 07:05 Swallowing crab Allergy Unknown Verified 08/30/24 07:05 crayfish Allergy Unknown Verified 08/30/24 07:05 diphenhydramine Allergy ADR-Itching Verified 08/30/24 07:05 [From Benadryl] epinephrine Allergy ADR/ALGY-Pa Verified 08/30/24 07:05 lpitations grapefruit Allergy Unknown Verified 08/30/24 07:05 grass pollen Allergy ALGY-Rash Verified 08/30/24 07:05 juniper tar Allergy Unknown Verified 08/30/24 07:05 kiwi Allergy ALGY-Hives Verified 08/30/24 07:05 latex Allergy ALGY-Rash Verified 08/30/24 07:05 lavender (Lavandula Allergy ALGY-Rash Verified 08/30/24 07:05 angustifolia) lemon Allergy ALGY-Rash Verified 08/30/24 07:05 lemon oil Allergy ALGY-Rash Verified 08/30/24 07:05 licorice Allergy Unknown Verified 08/30/24 07:05 [place] Allergy Unknown Verified 08/30/24 07:05 molasses Allergy Unknown Verified 08/30/24 07:05 mold Allergy ALGY-Rash Verified 08/30/24 07:05 mussels Allergy Unknown Verified 08/30/24 07:05 nut - unspecified Allergy ALGY-Hives Verified 08/30/24 07:05 oats Allergy ALGY-Hives Verified 08/30/24 07:05 octopus Allergy Unknown Verified 08/30/24 07:05 orange Allergy ALGY-Rash Verified 08/30/24 07:05 oyster extract Allergy Unresponsiv Verified 08/30/24 07:05 e passion fruit Allergy Unknown Verified 08/30/24 07:05 scallops Allergy Unknown Verified 08/30/24 07:05 shellfish derived Allergy ALGY-Swell Verified 08/30/24 07:05 Lip/Tongue/Throat shrimp Allergy Unknown Verified 08/30/24 07:05 squid Allergy Unknown Verified 08/30/24 07:05 wheat Allergy ALGY-Hives Verified 08/30/24 07:05 shell fish Allergy Severe ALGY-Swell Uncoded 08/30/24 07:05 Lip/Tongue/Throat abolone Allergy Unknown Uncoded 08/30/24 07:05 anchovie Allergy ALGY-Hives Uncoded 08/30/24 07:05 antibacterial soap Allergy Unknown Uncoded 08/30/24 07:05 berries Allergy ALGY-Hives Uncoded 08/30/24 07:05 carob Allergy Unknown Uncoded 08/30/24 07:05 contrast dye Allergy ALGY-Difficulty Uncoded 08/30/24 07:05 Breathing gold Allergy Unknown Uncoded 08/30/24 07:05 hemp oil Allergy ALGY-Rash Uncoded 08/30/24 07:05 kumquat Allergy Unknown Uncoded 08/30/24 07:05 lobster Allergy Unknown Uncoded 08/30/24 07:05 malt Allergy ALGY-Bliste Uncoded 08/30/24 07:05 r mesquite Allergy Unknown Uncoded 08/30/24 07:05 millet Allergy ALGY-Rash Uncoded 08/30/24 07:05 mink oil Allergy ALGY-Rash Uncoded 08/30/24 07:05 mola Allergy Unknown Uncoded 08/30/24 07:05 MSG Allergy Unknown Uncoded 08/30/24 07:05 prawn Allergy Unknown Uncoded 08/30/24 07:05 rye Allergy ALGY-Rash Uncoded 08/30/24 07:05 snail Allergy Unknown Uncoded 08/30/24 07:05 sorghum Allergy Unknown Uncoded 08/30/24 07:05 tangello Allergy Unresponsiv Uncoded 08/30/24 07:05 e tangerine Allergy Unknown Uncoded 08/30/24 07:05 worcestershire sauce AdvReac Severe ALGY-Swell Uncoded 08/30/24 07:05 Lip/Tongue/Throat Current Medications Generic Name Dose Route Start Last Admin Trade Name Freq PRN Reason Stop Dose Admin Albuterol/Ipratropium 3 ml 12/12/24 02:00 12/18/24 13:07 Ipratropium-Albuterol 3 Ml Neb INHALATION 3 ml Q6H.RESP RAPHAEL Administration Chlorhexidine Gluconate 1 applic 12/17/24 00:45 12/18/24 02:25 Chlorhexidine Gluconate 4% Btl 118 Ml TOPICAL 1 applic BEDTIME RAPHAEL Administration Furosemide 40 mg 12/12/24 08:00 12/12/24 08:51 Furosemide 40 Mg Tablet PO 40 mg DAILY@0800 RAPHAEL Administration Amiodarone HCl/Dextrose 360 mg in 200 mls @ 0 mls/hr 12/14/24 22:15 12/15/24 18:27 Nexterone IV Infused .Q0M RAPHAEL Titration Protocol Per Protocol Norepinephrine Bitartrate 4 mg in 250 mls @ 0 mls/hr 12/14/24 22:30 12/18/24 04:46 Levophed IV 4 mcg/min .Q0M RAPHAEL 15 mls/hr Titration Protocol Per Protocol Vasopressin 40 unit in 100 mls @ 0 mls/hr 12/15/24 09:00 12/17/24 19:00 Vasostrict IV Infused .Q0M RAPHAEL Titration Protocol Per Protocol Fentanyl 1,000 mcg in 100 mls @ 0 mls/hr 12/15/24 09:00 12/18/24 11:35 Sublimaze IV 0 mcg/hr .Q0M RAPHAEL 0 mls/hr Titration Protocol Per Protocol Propofol 1,000 mg in 100 mls @ 0 mls/hr 12/15/24 09:00 12/15/24 14:45 Diprivan IV 0 mcg/kg/min .Q0M RAPHAEL 0 mls/hr Titration Protocol Per Protocol Midazolam HCl 100 mg in 100 mls @ 0 mls/hr 12/15/24 11:45 12/18/24 10:30 Versed IV 0 mg/hr .Q0M RAPHAEL 0 mls/hr Titration Protocol Per Protocol Sodium Chloride 1,000 mls @ 125 mls/hr 12/15/24 15:15 12/16/24 15:05 Sodium Chloride 0.9% IV Not Given .Q8H RAPHAEL Piperacillin Sod/Tazobactam 50 mls @ 12.5 mls/hr 12/16/24 22:00 12/18/24 13:40 Sod 3.375 gm/ Sodium Chloride IV Infused Q12H RAPHAEL Infusion Lanolin 1 applic 12/14/24 09:33 12/16/24 08:27 Lanolin Oint 7 Gm TOPICAL 1 applic PRN PRN Administration DRYNESS Midazolam HCl 2 mg 12/18/24 10:28 12/18/24 17:29 Midazolam 1 Mg/Ml Inj 2 Ml IVP 2 mg Q4H PRN Administration agitation Pantoprazole Sodium 40 mg 12/12/24 07:00 12/18/24 06:23 Pantoprazole 40 Mg Sdv IVP 40 mg ACBREAKFAST RAPHAEL Administration Senna 17.2 mg 12/12/24 09:00 12/18/24 09:38 Sennosides 8.6 Mg Tablet PO 17.2 mg DAILY RAPHAEL Administration PFSH Acute 2 PFSH: Medical History (Updated 12/16/24 @ 21:30 by Anaid Thompson MD) Asthma Osteoarthritis of left knee Statin intolerance Osteoarthritis of right hip severe on imaging; Hx of deep venous thrombosis right leg Chronic venous insufficiency of lower extremity R leg; hx of DVT this leg Disability of walking Aortic stenosis Osteoporosis didn't tolerate oral bisphosphonates; did prolia for 5 yrs; she doesn't want to do any more DEXAs Bradycardia sees cardio [facility] Carotid atherosclerosis bilateral mild on US 04/08 Chronic atrial fibrillation Chest pain Symptomatic bradycardia Anticoagulation adequate with anticoagulant therapy COPD (chronic obstructive pulmonary disease) Pulmonary arterial hypertension Sleep apnea not using CPAP; sleeps in recliner Hypertension CAD (coronary artery disease) seeing cardio in [place] [facility] Surgical History Status post laparoscopic cholecystectomy (03/06/21) H/O left knee surgery arthroscopic H/O right knee surgery arthroscopic H/O tubal ligation History of colonoscopy with polypectomy 2016 History of esophagogastroduodenoscopy (EGD) Family History Mother Diabetes CAD (coronary artery disease) Social History Smoking and tobacco/nicotine status: never used tobacco/nicotine Second hand smoke exposure: No Alcohol intake: never Substance/Drug Use: never Lives independently: Yes Household members: none Marital status: / Number of children: 3 Highest education level completed: Some College, No Degree Current occupational status: 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 Do you think of yourself as: Straight/Heterosexual Current gender identity: Female Female Reproductive History: Spontaneous abortions: No Vitals/I&O/Wt Last Vital Signs Temp 98.1 F 12/18/24 16:30 Pulse 62 12/18/24 16:30 Resp 18 12/18/24 16:06 BP 108/55 12/18/24 16:30 Pulse Ox 99 12/18/24 16:30 O2 Del Method Mechanical Ventilation 12/18/24 13:00 O2 Flow Rate 2 12/15/24 04:30 FiO2 28 12/18/24 16:06 12/18/24 12/18/24 12/18/24 06:59 14:59 22:59 Intake Total 341.225 / 713.750 94.600 / 94.600 Output Total 250 / 550 Balance 91.225 / 163.750 94.600 / 94.600 Weight last 48 hrs Weight 217 lb 12.8 oz Weight 217 lb 12.8 oz Physical Exam 2 Narrative: Intubated and sedated, normal neck anatomy Urinary Catheter Management: Gregory: Cath Placed During This Visit: yes Reason for Continuing Indwelling Catheter: Accurate Measurement of Urinary Output in Critically Ill Patients Urinary Catheter Date of Insertion: 12/14/24 Urinary Catheter Time of Insertion: 22:45 Data 12/18/24 02:10 12/18/24 14:04 Micro: Microbiology 12/17/24 14:05 Gram Stain - Final Sputum - Endotracheal Tube Aspirate Sputum Culture - Preliminary 12/15/24 09:55 Gram Stain - Final Sputum - Endotracheal Tube Aspirate Sputum Culture - Final A&P Assessment and plan (1) SRINI (acute kidney injury): Plan After careful discussion with the family member regarding risk and benefits including the risks of pneumothorax, great vessel perforation, hematoma, cardiac perforation, we have decided to proceed with dialysis catheter placement. We decided on a right IJ approach, 16 cm double-lumen dialysis catheter was placed without complications. Placement was verified with imaging, no evidence of pneumothorax on follow-up x-ray (radiologist read pending). Coding Level of Care Code Acute Code for Chg Fwd Diagnoses SRINI (acute kidney injury) N17.9
--- NOTE | 2024-12-18 18:18 | PM.ACPR ---
Procedure/Consent Time out: Time Out Performed: Yes Consent: Consent for Procedure: Consent obtained from other (indicate) (Daughter), Risks & Benefits reviewed and Agrees to proceed with procedure Procedure Narrative: After a timeout was conducted. The neck was interrogated with ultrasound and a good target was noted to be the right IJ vein. The right neck was prepped and draped in the usual sterile fashion. Patient was verified once again. I then proceeded to cannulate the right IJ vein with an 18-gauge needle under ultrasound guidance, immediate return of blood was noted and a wire was advanced. The needle was removed leaving the wire in place. The position of the wire was verified with ultrasound. I then proceeded to make a 0.3 cm incision to the level of the wire insertion site in the neck. The tract was dilated with sequential sizes of dilators. I then advanced a dual-lumen 16 cm dialysis catheter over the wire, the wire was removed leaving the catheter in place. Both lumens of the catheter were drawing blood flushing very well. The catheter was fixed with #3-0 silk. The catheter was retested and was working fine. A sterile dressing was applied including a chlorhexidine disk. Patient tolerated well the procedure. Remain in the ICU intubated on the critical condition. Immediate chest x-ray was done showing adequate position of the tip of the catheter, I could not identify any pneumothorax catheter is cleared to be used. Acute Procedures Epistaxis Control: Time out performed: Yes
--- NOTE | 2024-12-18 18:27 | PC.NURSE ---
1730 Obtained verbal consent on phone from daughter Allyssa for placement of temp dialysis catherter. 1745 Dr. Moss surgeon, also spoke with Allyssa explaining risks and reason for placement of catheter. 1800 Dr. Pinon surgeon placed a temp dialysis catheter in her right side of neck without problems. Port chest xray done and Dr. Pinon says catheter is good to use.
--- NOTE | 2024-12-18 18:32 | PC.NURSE ---
174 No further versed was needed after the 2mg given off PRN orders, so did not give the 4mg one time order and returned to the pyxis.
[2024-12-18] MEDS: norepinephrine 4 MG/250 ML BAG 15 MG IV (18:50)
[2024-12-18 20:31] LABS: Hepatitis B Surface AB < 3.5 (11.5-1000)
[2024-12-18 20:53] LABS: Hepatitis B Surface Antigen Non-Reactive (Nonreactive)
--- NOTE | 2024-12-18 23:57 | PC.HD ---
Telephone consent for dialysis treatment obtained from patient's daughter Allyssa Angela, witnessed by another RN. [facility] dialysis catheter functioned well but 2 hours into treatment cath repeatedly suctioned to vessel wall causing blood pump to stop, likely intravascularly dry as AP not elevated aside from when sucked up to wall, UF off and Dr Thompson notified. Patient tolerated initial dialysis treatment well.
[2024-12-19] VITALS (104 sets, daily range): BP systolic 96–137; BP diastolic 40–66; PULSE 54–72; RESP 17–26; TEMP 36.2–37.1; O2SAT 89–100
[2024-12-19] MEDS: ipratropium-albuterol 3 mL Neb INHALATION ×4 (03:00→20:06)
[2024-12-19] MEDS: norepinephrine 4 MG/250 ML BAG 22.5 MG IV (06:07)
[2024-12-19] MEDS: pantoprazole 40 mg SDV IVP (06:08)
[2024-12-19] MEDS: chlorhexidine gluconate 4% Btl 118 mL 1 APPLIC TOPICAL (06:13)
[2024-12-19 06:18] LABS: Hematocrit 27.1 % (36-47); Mean Corpuscular HGB Conc 31.7 g/dL (30-55); Mean Corpuscular Hemoglobin 27.5 pg (27-33); Mean Corpuscular Volume 86.6 fl (85-98); Mean Platelet Volume 10.6 fL (7.4-10.4); Platelet Count 120 10^3/cmm (157-399); Red Blood Count 3.13 10^6/uL (3.85-5.65); Red Cell Distribution Width 19.1 % (12.1-15.1); White Blood Count 27.76 10^3/uL (3.29-11.43)
[2024-12-19 06:38] LABS: Alanine Aminotransferase 563 U/L (0-33); Albumin Level 2.8 g/dL (3.5-5.2); Alkaline Phosphatase 71 U/L (35-105); Anion Gap 21.5 (5-19); Aspartate Amino Transferase 294 U/L (0-32); Blood Urea Nitrogen 69 mg/dL (8-23); Calcium 8.1 mg/dL (8.5-10.5); Carbon Dioxide 23 mmol/L (22-29); Chloride 100 mmol/L (98-107); Creatinine Clr Calc Pharmacy 15.1269; Globulin 2.4 g/dL (1.3-4.6); Glucose 98 mg/dL (65-115); Magnesium 2.3 mg/dL (1.7-2.3); Osmolality Calculated 310 mOsm/kg (285-295); Phosphorus 5.7 mg/dL (2.5-4.5); Potassium 4.5 mmol/L (3.5-5.1); Sodium 140 mmol/L (136-145); Total Bilirubin 1.4 mg/dL (0.15-1.2); Total Protein 5.2 g/dL (6.6-8.7)
[2024-12-19 07:18] LABS: Slide Review Slide Review Perform
[2024-12-19 07:19] LABS: Absolute Eosinophils 0.3 10^3/cmm (0.0-0.7); Absolute Neutrophil 23.3 10^3/cmm (1.4-6.5); Absolute Segmented Neutrophil 22.5 10/cmm (1.6-7.1); Band Neutrophils Absolute 0.8 10^3/cmm (0.0-1.2); Eosinophils 1 %; Lymphocytes 7 %; Lymphocytes Absolute 1.9 10^3/cmm (1.2-3.4); Monocytes Absolute 0.8 10^3/cmm (0.1-0.6); Platelet Estimate Decreased (Normal); Segmented Neutrophils 81 %; Total Cells Counted 100 (0-100)
[2024-12-19 07:20] LABS: Anisocytosis Trace
--- NOTE | 2024-12-19 07:21 | P.PN_ITS ---
Subjective 2 Subjective: on vent Medications: Reviewed: Yes Vitals/I&O/Wt Last Vital Signs Temp 98.0 F 12/19/24 06:46 Pulse 62 12/19/24 06:00 Resp 18 12/19/24 03:01 BP 136/53 12/19/24 06:00 Pulse Ox 95 12/19/24 06:00 O2 Del Method Mechanical Ventilation 12/19/24 02:00 O2 Flow Rate 2 12/15/24 04:30 FiO2 28 12/19/24 03:01 12/18/24 12/19/24 12/19/24 22:59 06:59 14:59 Intake Total 351.5 / 446.100 743.125 / 1189.225 Output Total 350 / 350 1320 / 1670 Balance 1.5 / 96.100 -576.875 / -480.775 Weight last 48 hrs Weight 98 kg Weight 100.5 kg Weight 98.792 kg Physical Exam 2 Narrative: Intubated, sedated Urinary Catheter Management: Gregory: Cath Placed During This Visit: yes Reason for Continuing Indwelling Catheter: Accurate Measurement of Urinary Output in Critically Ill Patients Urinary Catheter Date of Insertion: 12/14/24 Urinary Catheter Time of Insertion: 22:45 Data 12/19/24 06:07 12/19/24 06:07 Micro: Microbiology 12/17/24 14:05 Gram Stain - Final Sputum - Endotracheal Tube Aspirate Sputum Culture - Preliminary A&P Assessment and plan (1) SRINI (acute kidney injury): 1. Acute kidney injury: Probably ATN in the setting of shock and sepsis. Patient currently on pressors, oliguric. She is currently DNR, -Has worsening SRINI and uREMIA --> Family decided to proceed with dialysis , s/p HD last night and plan for HD again today 2. Shock, hypovolemic in the setting of blood loss 3. Acute on chronic respiratory failure currently on vent 4. History of coronary artery disease, CHF and pulmonary hypertension 5. Anemia, Patient is currently DNR. Patient evaluated using audiovisual cart. Time spent 40 minutes. Attestations 2 Medical Necessity Statement*: per luisawy Coding Level of Care Code Acute Code for [facility] Diagnoses SRINI (acute kidney injury) N17.9
[2024-12-19] MEDS: sennosides 8.6 mg Tablet 17.2 MG PO (09:02)
[2024-12-19] MEDS: piperacillin-tazobactam 3.375 GM in sodium chloride 0.9% (plus) 50 ML IV ×2 (09:04→21:16)
--- NOTE | 2024-12-19 11:46 | CT_ITS ---
WS: [id number] CT HEAD NONCONTRAST HISTORY: somnolence TECHNIQUE: Contiguous axial imaging performed through the brain. Bone and soft tissue windows. Sagitt al and coronal reformats reviewed. All CT scans at [place] use at least one of these dose optimization techniques: automated exposure control; mA and/or kV adjustment per patient size (includ es targeted exams where dose is matched to clinical indication); or iterative reconstruction. DLP: 1084.18 mGy.cm COMPARISON: 08/22/2022 Moderate symmetric atrophy with advanced small vessel disease. Mild progression of small vessel disea se since 08/22/2022. No new focal infarct. Moderate bilateral cerebellar atrophy. Ventricles: Normal size with no hydrocephalus. No inferior displacement of the cerebellar tonsils. Paranasal sinuses: Air-fluid levels in the sphenoid sinuses. Mastoid air cells: Well pneumatized. Calvarium and scalp: Skull is intact with no soft tissue edema or swelling. CT/CT head wo con* [id number] IMPRESSION: 1. No acute intracranial hemorrhage or edema. 2. Moderate symmetric cerebral and cerebellar atrophy with advanced small vess el disease. Mild progression of small vessel disease since 2021. 3. Small air-fluid levels in the sphenoid sinuses.
[2024-12-19 12:25] LABS: Estmated Average Glucose 123; Hemoglobin A1C 5.9 % (4.0-6.0)
[2024-12-19 12:31] LABS: Procalcitonin 9.77 ng/mL (0-0.5); Thyroid Stimulating Hormone 5.85 uIU/mL (0.27-4.20)
[2024-12-19 12:41] LABS: Vitamin B12 > 2000 pg/mL (232-1245)
[2024-12-19 12:42] LABS: Iron 66 ug/dL (37-145); Percent Saturation 35.1 % (20-50); Total Iron Binding Capacity 188 mcg/dl; Unsaturated Iron Binding 122 ug/dL (112-347)
[2024-12-19] MEDS: fluconazole premix 200 MG/100 ML PREMIX 100 MG IV (12:56)
--- NOTE | 2024-12-19 14:04 | PC.SOCIAL ---
IMM Updated Pt is intubated at this time. Provided a copy at bedside. Initialed, dated, & timed copy in chart. Pt is not going to d/c within the next 24-48hrs.
[2024-12-19 15:03] LABS: MRSA PCR OZH (swab) NOT DETECTED (Not Detecte)
--- NOTE | 2024-12-19 16:45 | PC.OT ---
OT TREATMENT HELD PATIENT IS STILL ON VENT.
[2024-12-19 17:04] LABS: Ammonia 33 umol/L (11-51); Vancomycin Trough 9.6 ug/mL (10-15)
--- NOTE | 2024-12-19 18:53 | PM.PN ---
Subjective Subjective: Hospital course labs appreciated. Today morning examination patient is undergoing dialysis. Levophed was shut off earlier in the morning. Patient mean artery pressure since Levophed being weaned off has maintained around 70. Heart rate is running in the low 60s. Patient is off sedation on mechanical ventilator but remains somnolent with minimal response to painful stimulus. Appreciate ABG on 40% FiO2, 450 tidal volume with PEEP of 5. Medications: Reviewed: Yes Vitals/I&O/Wt Last Vital Signs Temp 98.1 F 12/19/24 16:00 Pulse 61 12/19/24 18:00 Resp 18 12/19/24 18:27 BP 124/54 12/19/24 18:00 Pulse Ox 98 12/19/24 18:27 O2 Del Method Mechanical Ventilation 12/19/24 13:59 O2 Flow Rate 2 12/15/24 04:30 FiO2 28 12/19/24 18:27 12/19/24 12/19/24 12/19/24 06:59 14:59 22:59 Intake Total 743.125 / 1189.225 81.125 / 81.125 100 / 181.125 Output Total 1320 / 1670 Balance -576.875 / -480.775 81.125 / 81.125 100 / 181.125 Weight last 48 hrs Weight 98 kg Weight 100.5 kg Weight 98.792 kg Physical Exam Narrative: General: Intubated, not sedated, somnolent, GCS: E1 M1 VT HEENT: PERRLA, pupils bilaterally equal and reactive Chest: Normal vesicular breath sounds, no added sounds, equal good air entry bilaterally CVS: S1-S2 regular, no murmurs, no tachycardia, no gallops, no rubs Abdomen: Soft, nontender, no organomegaly, bowel sounds present Neuro: No focal deficits, no facial deformity, Extremity: Bilateral 1+ pedal and edema up to mid thigh Urinary Catheter Management: Gregory: Cath Placed During This Visit: yes Reason for Continuing Indwelling Catheter: Accurate Measurement of Urinary Output in Critically Ill Patients Urinary Catheter Date of Insertion: 12/14/24 Urinary Catheter Time of Insertion: 22:45 Data 12/20/24 04:01 12/20/24 04:01 Micro: Microbiology 12/19/24 16:20 Blood Culture - Preliminary Blood SPECIMEN COLLECTED 12/19/24 16:17 Blood Culture - Preliminary Blood SPECIMEN COLLECTED 12/17/24 14:05 Gram Stain - Final Sputum - Endotracheal Tube Aspirate Sputum Culture - Preliminary Yeast species A&P Assessment and plan (1) Rectus sheath hematoma: Seen on CT abdomen pelvis on 12/16. Hemoglobin mostly stable at around 8.6 Anticoagulation on hold currently. Appreciate surgical recommendations. (2) Nontraumatic retroperitoneal hematoma: (3) Hemorrhagic shock: Resolving. Was on 2 pressors. Currently weaned off Levophed. Maintain mean oral pressure 65. Patient does have leukocytosis maintained around 27,000. Has remained afebrile. Could be in setting of anemia. Check procalcitonin, blood culture, urinalysis, MRSA swab. Sputum culture growing yeast. Continue with current IV antibiotics for now. Will discontinue vancomycin if MRSA swab negative. Vancomycin to be dosed as per daily Vanco random levels. (4) Renal failure: Most likely in setting of hemorrhagic shock. Appreciate nephrology recommendations. Getting dialysis through temporary dialysis catheter for now. Monitor renal functions. Medical reconciliation done for nephrotoxic drugs. Monitor mean artery pressure. (5) Acute respiratory failure: On minimal ventilator settings. Appreciate ABG. Sputum culture growing yeast. Add fluconazole 200 mg IV daily. Continued respiratory failure because of poor neurological status. Oxygen supplementation keeping saturation over 90%. DuoNeb every 6 hour. (6) Ventilator dependent: Due to poor neurological response. Patient remains somnolent. Off sedation for 24 hours. Patient did require higher sedation till Thursday morning. Could be prolonged sedation in setting of liver and renal dysfunction due to poor fat metabolic from due to obesity. Appreciate electrolyte levels. Patient getting second session of dialysis. Check ammonia levels, CT head. Maintain off sedation for now. (7) Ischemia reperfusion injury of liver: Continue to monitor daily. (8) Atrial fibrillation with RVR: Heart rate currently stable. Bradycardic. Holding off on amiodarone drip. At baseline patient is not on NT arrhythmics or rate control medications. Holding off on anticoagulation given concerns for hemorrhagic shock. (9) Demand ischemia: Baseline troponin 300 on 12/15 with delta of -7 and 6 hours. Most likely in setting of hemorrhagic shock. Check A1c, lipid panel. Aspirin 81 mg oral daily. Holding off on statins and anticoagulation given liver dysfunction, hemorrhagic shock. (10) Lactic acidosis: Repeat lactate level. Elevated up to 15 on 01/30. (11) Hypertension: Goal pressure less than 140/90 mmHg with mean over 65. Holding off on antihypertensive given hemorrhagic shock recently. Monitor blood pressures. Qualifiers: Hypertension type: primary hypertension Qualified Code(s): I10 - Essential (primary) hypertension (12) CAD (coronary artery disease): Qualifiers: Associated angina: without angina Coronary Disease-Associated Artery/Lesion type: [place] artery [place] vs. transplanted heart: [place] heart Qualified Code(s): I25.10 - Atherosclerotic heart disease of [place] coronary artery without angina pectoris (13) Atrial fibrillation: Qualifiers: Atrial fibrillation type: longstanding persistent Qualified Code(s): I48.11 - Longstanding persistent atrial fibrillation (14) COPD (chronic obstructive pulmonary disease): Qualifiers: COPD type: emphysema Emphysema type: unspecified Qualified Code(s): J43.9 - Emphysema, unspecified (15) DNR (do not resuscitate): (16) ELBA (obstructive sleep apnea): (17) Pulmonary hypertension: (18) Chronic anticoagulation: (19) Goals of care, counseling/discussion: Had a detailed goals of care discussion with patient's DPOA/daughter over the phone. We discussed patient is getting second session of dialysis. Renal function seem to be stabilizing but she continues to remain somnolent. Discussed given high sedation earlier it is possible that she would improve gradually and will need to monitor. Discussed about CODE STATUS. Daughter states she is DNR/DNI. Agreeable to the plan for now. All the questions were answered. Plan Analgesia: Anesthesia: Not needed. Patient somnolent. Glycemic control: No history of diabetes. Check A1c. Nutrition: N.p.o. CODE STATUS: DNR/DNI PUD prophylaxis: Protonix DVT prophylaxis: SCDs Discharge planning: Home with home health versus SNF depending on clinical picture. Continue with care at ICU This documentation was created by [employer] immigration paralegal software. Every effort was made to ensure accuracy of immigration paralegal. Any obvious errors or omissions should be clarified with the author of the document. Attestations Medical Necessity Statement*: Requires further hospitalization for management of respiratory failure, ventilator dependent in setting of somnolence in a patient recovering from hemorrhagic shock from rectus sheath hematoma, multiorgan dysfunction with SRINI requiring hemodialysis, liver dysfunction Critical Care Time: The high probability of a clinically significant, sudden or life threatening deterioration of the patient's [neurological, cardiac, renal, pulmonary] system(s) required my full and direct attention, intervention and personal management. The critical care time is as shown. This time is in addition to time spent performing any reported procedures but includes the following: [x] Data and vital sign review and interpretation [x] Patient assessment, examination and intervention [x] Documentation [x] Medication orders and management Critical Care Time (min): 90 Coding Level of Care Code Critical Care >/= 30 minutes Critical care time (in minutes): 90 The high probability of a clinically significant, sudden or life threatening deterioration, as referenced in this documentation, required my full and direct attention, intervention and personal management. The critical care time shown is in addition to time spent performing any reported separately billable procedures and includes the following: [x] Data and vital sign review and interpretation [x] Patient assessment, examination and intervention [x] Medication orders and management [x] Patient/Family updates as able [x] Care Coordination and Documentation. Other Coding Information This patient has a high probability of clinically significant, sudden or life threatening deterioration of the patient's (neurological/pulmonary/cardiac/renal/ID/endocrine) systems required my full, direct attention, the highest level of physician preparedness for urgent intervention and personal management. I managed/supervised life or organ supporting interventions that required frequent physician assessment. I devoted my full attention in the ICU to the direct care of this patient for the period of time indicated above. Time I spent with family or surrogate(s) is included only if the patient was incapable of providing necessary information or participating in decision making. This time includes the following services provided: Telemetry review Mechanical Ventilation Hemodynamic interpretation, assessment and management Review and interpretation of CXR Review and interpretation of lab values Review and interpretation of microbiologic data and culture results Review of medications and administration Review and interpretation of Nutrition requirements and management Discussion of management with other consultants and services Clinical update to family members Diagnoses Rectus sheath hematoma S30.1XXA Nontraumatic retroperitoneal hematoma K68.3 Hemorrhagic shock R57.8 Renal failure N19 Acute respiratory failure J96.00 Ventilator dependent Z99.11 Ischemia reperfusion injury of liver K91.81 Atrial fibrillation with RVR I48.91 Demand ischemia I24.89 Lactic acidosis E87.20 Primary hypertension I10 Hypertension type: primary hypertension Coronary artery disease involving [place] coronary artery of [place] heart without angina pectoris I25.10 Associated angina: without angina Coronary Disease-Associated Artery/Lesion type: [place] artery [place] vs. transplanted heart: [place] heart Longstanding persistent atrial fibrillation I48.11 Atrial fibrillation type: longstanding persistent Pulmonary emphysema, unspecified emphysema type J43.9 COPD type: emphysema Emphysema type: unspecified DNR (do not resuscitate) Z66 ELBA (obstructive sleep apnea) G47.33 Pulmonary hypertension I27.20 Chronic anticoagulation Z79.01 Goals of care, counseling/discussion Z71.89
[2024-12-20] VITALS (102 sets, daily range): BP systolic 99–147; BP diastolic 32–93; PULSE 53–72; RESP 15–21; TEMP 36.9–37.2; O2SAT 94–100
[2024-12-20] MEDS: ipratropium-albuterol 3 mL Neb INHALATION ×4 (02:21→19:34)
[2024-12-20 05:30] LABS: Hematocrit 24.5 % (36-47); Mean Corpuscular HGB Conc 31.8 g/dL (30-55); Mean Corpuscular Hemoglobin 27.6 pg (27-33); Mean Corpuscular Volume 86.6 fl (85-98); Mean Platelet Volume 11.1 fL (7.4-10.4); Platelet Count 114 10^3/cmm (157-399); Red Blood Count 2.83 10^6/uL (3.85-5.65); Red Cell Distribution Width 18.8 % (12.1-15.1); White Blood Count 27.23 10^3/uL (3.29-11.43)
[2024-12-20 05:56] LABS: Alanine Aminotransferase 398 U/L (0-33); Albumin Level 2.7 g/dL (3.5-5.2); Alkaline Phosphatase 75 U/L (35-105); Anion Gap 19.1 (5-19); Aspartate Amino Transferase 189 U/L (0-32); Blood Urea Nitrogen 56 mg/dL (8-23); Calcium 7.8 mg/dL (8.5-10.5); Carbon Dioxide 23 mmol/L (22-29); Chloride 100 mmol/L (98-107); Creatinine Clr Calc Pharmacy 18.5258; Globulin 2.3 g/dL (1.3-4.6); Glucose 98 mg/dL (65-115); Osmolality Calculated 301 mOsm/kg (285-295); Potassium 4.1 mmol/L (3.5-5.1); Sodium 138 mmol/L (136-145); Total Bilirubin 1.6 mg/dL (0.15-1.2)
[2024-12-20 05:59] LABS: Chol HDL Ratio 2.96 mg/dL (0.0-4.40); Cholesterol 74 mg/dL (0-200); HDL Cholesterol 25 mg/dL (60-100); LDL Cholesterol Calculated 31 mg/dL (50-129); Magnesium 2.3 mg/dL (1.7-2.3); Triglycerides 90 mg/dL (0-150); VLDL Cholestrol Calculation 18 mg/dL (0-30)
--- NOTE | 2024-12-20 06:00 | XRR_ITS ---
PROCEDURE INFORMATION: Exam: XR Chest Exam date and time: 12/20/2024 5:38 AM Age: 79 years old Clinical indication: Shortness of breath; Additional info: Resp failure, intubated TECHNIQUE: Imaging protocol: Radiologic exam of the chest. Views: 1 view. COMPARISON: CR XR chest 1V portable [id number] 12/18/2024 6:03 PM FINDINGS: Tubes, catheters and devices: Unremarkable, stable life support device positions without interval change. Lungs: Unremarkable. No consolidation. Pleural spaces: Unremarkable. No pleural effusion. No pneumothorax. Heart/Mediastinum: Prominent cardiac silhouette is unchanged in size and contour. Bones/joints: Unremarkable. XR/XR chest 1V portable [id number] IMPRESSION: Negative for interval changes. Stable exam.
[2024-12-20 06:13] LABS: Vancomycin Random 10.4 ug/mL (20.0-40.0)
[2024-12-20 06:22] LABS: Folate Level 6.7 ng/mL (4.8-37.3)
[2024-12-20 06:25] LABS: ABG PCO2 34.8 mmHg (35-45); ABG PH Result 7.47 (7.35-7.45); Arterial Blood Gas Hematocrit 25.1 % (37-47); Base Excess ABG 1.4 mmol/L (-2.0-2.0); Blood Gas Allen Test Pos; Blood Gas Sample Type Arterial; Carboxyhemoglobin 1.8 %THgb (0.4-20.1); HCO3 ABG 25.1 mmol/L (22-26); HGB O2 Sat 94.6 % (95-100); Ionized Calcium Level - ABG 1.1 mmol/L (1.1-1.4); Methemoglobin 1.2 % (0.4-1.5); Oxygen Saturation ABG 97.5; PO2 ABG 83.7 mmHg (80.0-100.0); Total Hemoglobin 8.2 g/dL (12-16)
[2024-12-20 06:26] LABS: Alveolar-Arterial Oxygen Gradi 9.5 mmHg (5-10); Blood Gas Operator Identificat ED; Blood Gas Sample Site Radial, left; Blood Gas Tidal Volume 0.45; Oxygen Device VENT; PO2 FiO2 Ratio Arterial Blood 298
[2024-12-20] MEDS: pantoprazole 40 mg SDV IVP (06:40)
[2024-12-20] MEDS: sennosides 8.6 mg Tablet 17.2 MG PO (08:37)
[2024-12-20 08:39] LABS: Slide Review Slide Review Perform
[2024-12-20 08:40] LABS: Absolute Eosinophils 0.3 10^3/cmm (0.0-0.7); Absolute Neutrophil 22.6 10^3/cmm (1.4-6.5); Absolute Segmented Neutrophil 19.6 10/cmm (1.6-7.1); Eosinophils 1 %; Lymphocytes 7 %; Lymphocytes Absolute 2.2 10^3/cmm (1.2-3.4); Monocytes Absolute 0.5 10^3/cmm (0.1-0.6); Platelet Estimate Decreased (Normal); Segmented Neutrophils 72 %; Total Cells Counted 100 (0-100)
[2024-12-20] MEDS: piperacillin-tazobactam 3.375 GM in sodium chloride 0.9% (plus) 50 ML IV ×2 (08:59→21:33)
--- NOTE | 2024-12-20 10:47 | P.PN_ITS ---
Subjective 2 Subjective: reamins on vent Medications: Reviewed: Yes Vitals/I&O/Wt Last Vital Signs Temp 98.9 F 12/20/24 08:00 Pulse 64 12/20/24 10:15 Resp 17 12/20/24 09:50 BP 118/62 12/20/24 10:15 Pulse Ox 98 12/20/24 10:15 O2 Del Method Mechanical Ventilation 12/20/24 08:00 O2 Flow Rate 2 12/15/24 04:30 FiO2 28 12/20/24 09:50 12/19/24 12/20/24 12/20/24 22:59 06:59 14:59 Intake Total 100 / 181.125 117.5 / 298.625 Output Total 150 / 150 Balance 100 / 181.125 -32.5 / 148.625 Weight last 48 hrs Weight 99.5 kg Weight 98 kg Weight 100.5 kg Physical Exam 2 Narrative: Intubated, sedated Urinary Catheter Management: Gregory: Cath Placed During This Visit: yes Reason for Continuing Indwelling Catheter: Accurate Measurement of Urinary Output in Critically Ill Patients Urinary Catheter Date of Insertion: 12/14/24 Urinary Catheter Time of Insertion: 22:45 Data 12/20/24 04:01 12/20/24 04:01 Micro: Microbiology 12/15/24 00:39 Blood Culture - Final Blood NO GROWTH AFTER 5 DAYS 12/15/24 00:34 Blood Culture - Final Blood NO GROWTH AFTER 5 DAYS 12/19/24 16:20 Blood Culture - Preliminary Blood SPECIMEN COLLECTED 12/19/24 16:17 Blood Culture - Preliminary Blood SPECIMEN COLLECTED 12/17/24 14:05 Gram Stain - Final Sputum - Endotracheal Tube Aspirate Sputum Culture - Preliminary Yeast species A&P Assessment and plan (1) SRINI (acute kidney injury): 1. Acute kidney injury: Probably ATN in the setting of shock and sepsis. Patient currently on pressors, oliguric. She is currently DNR, -Has worsening SRINI and uREMIA --> Family decided to proceed with dialysis , s/p HD x 2 sessions , HD again today 2. Shock, hypovolemic in the setting of blood loss 3. Acute on chronic respiratory failure currently on vent 4. History of coronary artery disease, CHF and pulmonary hypertension 5. Anemia, Patient is currently DNR. Patient evaluated using audiovisual cart. Time spent 40 minutes. PDMP PDMP Reviewed: Not Reviewed Attestations 2 Medical Necessity Statement*: per luisawv Coding Level of Care Code Acute Code for Chg Fwd Diagnoses SRINI (acute kidney injury) N17.9
--- NOTE | 2024-12-20 10:57 | CTR_ITS ---
PROCEDURE INFORMATION: Exam: CT Abdomen And Pelvis Without Contrast Exam date and time: 12/20/2024 8:00 PM Age: 79 years old Clinical indication: Other: Retroperitoneal hematoma TECHNIQUE: Imaging protocol: Computed tomography of the abdomen and pelvis without contrast. Radiation optimization: All CT scans at this facility use at least one of these dose optimization techniques: automated exposure control; mA and/or kV adjustment per patient size (includes targeted exams where dose is matched to clinical indication); or iterative reconstruction. COMPARISON: [place] [id number] 12/15/2024 7:55 AM RADIATION DOSE METRICS: Total DLP (mGy-cm): 901.91 FINDINGS: Tubes, catheters and devices: OG tube is seen with tip mid stomach region. Right femoral venous catheter seen with tip in the right external iliac vein. Lungs: Images of the visualized lung bases demonstrate small vlljb-mhaluyl-crqw-left basilar effusions with subjacent bibasilar atelectasis. Liver: Normal. No mass. Gallbladder and biliary ducts: Previous cholecystectomy. No significant biliary ductal dilatation. Pancreas: Pancreatic atrophy. No significant focal abnormality. Spleen: Normal. No splenomegaly. Adrenal glands: Normal. No mass. Kidneys and ureters: Rounded partially exophytic hypodense cyst lower pole of the left kidney. Likely small hypodense cyst midpole cortex right kidney. Findings are unchanged with prior exam. Mild perinephric stranding bilaterally. No hydronephrosis or obstruction. Stomach and bowel: No gastric distension. No small bowel dilatation or obstruction. Gas and stool within the colon with likely component of liquid stool content as well. Mild colonic diverticulosis without diverticulitis. Appendix: No evidence of appendicitis. Intraperitoneal space: There is some surrounding stranding within the mesentery around the hematoma within the right abdomen/pelvis region. No significant ascites otherwise. No free air or pneumoperitoneum. Retroperitoneal space: Large right retroperitoneal hematoma posterior to the right kidney and extending inferiorly to the right pelvis and about the obturator internus muscle and rectus abdominis muscle in the pelvis is again seen. Size or diameter is more pronounced in the lower abdomen/pelvic region and appears similar or without significant change from exam 5 days ago. No overall significant increase in size. Mass effect from hematoma in the right pelvis again noted. Mild hematoma in the left rectus abdominis muscle within the pelvis is again suggested. Today's exam demonstrates increased soft tissue density within the superficial and deep subcutaneous soft tissues laterally about the abdomen and pelvis region that demonstrates significant increase from prior exam. Suggestion of component of subcutaneous soft tissue hematoma and edema. Vasculature: Atherosclerotic vascular calcification without aneurysmal dilatation of the abdominal aorta. Lymph nodes: No significant enlarged lymph nodes. Urinary bladder: Gregory catheter seen within a nondistended urinary bladder with some associated air likely associated with Gregory catheter insertion. Reproductive: Calcified uterine fibroids within the pelvis. Bones/joints: Chronic degenerative changes about the hips and spine and old compression deformity of T12 when correlated with prior exam. Soft tissues: Periumbilical ventral hernia just to the left of midline contains fat and nondilated small bowel segment with today's exam. CT/CT abdomen pelvis wo con [id number] IMPRESSION: 1. Large right retroperitoneal hematoma extending to and involving the right pelvis is similar in appearance to prior exam 5 days ago, without significant overall increase in size. Continued findings of mass effect from hematoma within the right pelvis. 2. Interval development of extensive superficial and deep subcutaneous soft tissue density bilaterally, likely component of soft tissue hematoma and edema. 3. Periumbilical ventral hernia just to the left of midline contains fat and a nondilated small bowel segment with today's exam. 4. Small svaqr-aeyrgen-iufb-left basilar effusions with subjacent basilar atelectasis. 5. OG tube with tip in the mid stomach region. Right femoral central venous catheter with tip in the right external iliac vein. 6. Gregory catheter within a nondistended urinary bladder. 7. Other nonacute findings as noted above. COMMENTS: Consistent with the [employer]'s Incidental Findings Committee white paper (J Am Yareli Radiol 2018): Any incidental renal lesion less than 1 cm or classified as too small to characterize, or any incidental cystic renal lesion characterized as simple-appearing, is likely benign. No follow-up imaging is recommended for these lesions per consensus recommendations based on imaging criteria.
--- NOTE | 2024-12-20 11:42 | PC.OT ---
OT TREATMENT HELD TODAY DUE TO PATIENT CONTINUES TO BE INTUBATED
[2024-12-20] MEDS: fluconazole premix 200 MG/100 ML PREMIX 100 MG IV (12:26)
[2024-12-20] MEDS: albumin 12.5 GM/50 ML VIAL IV (12:28)
[2024-12-20 12:47] LABS: Lactic Sepsis W/Reflex 1.2 mmol/L (0.5-2.2)
--- NOTE | 2024-12-20 13:12 | XRR_ITS ---
PROCEDURE INFORMATION: Exam: XR Abdomen Exam date and time: 12/20/2024 1:50 PM Age: 79 years old Clinical indication: Abdominal pain; Generalized; Additional info: Feedings TECHNIQUE: Imaging protocol: Radiologic exam of the abdomen. Views: Frontal supine view of the abdomen. 1 View. COMPARISON: CT chest abdpel [id number] 12/15/2024 7:55 AM FINDINGS: Tubes, catheters and devices: NG/OG tube is seen mid to upper left abdomen overlying the mid gastric region. Femoral line, likely venous, is seen lower right pelvis. Surgical clips right upper quadrant. Gastrointestinal tract: Jryk-yw-kvmflqam air in the stomach. Nonspecific nonobstructive bowel gas pattern. Intraperitoneal space: No indication of free air. Organs: Coarse calcifications within the pelvis suggest calcified uterine fibroids. Bones/joints: Degenerative changes about the visualized spine and hips. XR/XR abdomen 1V* [id number] IMPRESSION: 1. Presence of NG/OG tube at the mid gastric level. Presence of right femoral line, likely venous, lower right pelvis. 2. Nonspecific nonobstructive bowel gas pattern. Lajm-nn-wadjnhne air in the stomach.
--- NOTE | 2024-12-20 15:12 | P.PN_ITS ---
Subjective 2 Subjective: No acute vents overnight. Patient tolerated second session of dialysis well yesterday. Was on minimal Levophed overnight. Weaned off again earlier today morning. Mean artery pressure has maintained over 65. Patient remains off sedation. Minimal grimace to painful stimulus. Appreciate ventilator settings of FiO2 28%, tidal volume 450 with PEEP of 5. Medications: Reviewed: Yes Vitals/I&O/Wt Last Vital Signs Temp 98.5 F 12/20/24 12:00 Pulse 62 12/20/24 14:18 Resp 21 H 12/20/24 14:16 BP 127/55 12/20/24 12:30 Pulse Ox 98 12/20/24 14:16 O2 Del Method Mechanical Ventilation 12/20/24 14:00 O2 Flow Rate 2 12/15/24 04:30 FiO2 28 12/20/24 14:16 12/20/24 12/20/24 12/20/24 06:59 14:59 22:59 Intake Total 117.5 / 298.625 200 / 200 Output Total 150 / 150 Balance -32.5 / 148.625 200 / 200 Weight last 48 hrs Weight 99.5 kg Weight 98 kg Weight 100.5 kg Physical Exam 2 Narrative: General: Intubated, not sedated, somnolent, GCS: E1 M1 VT HEENT: PERRLA, pupils bilaterally equal and reactive Chest: Normal vesicular breath sounds, no added sounds, equal good air entry bilaterally CVS: S1-S2 regular, no murmurs, no tachycardia, no gallops, no rubs Abdomen: Soft, nontender, no organomegaly, bowel sounds present Neuro: No focal deficits, no facial deformity, Extremity: Bilateral 1+ pedal and edema up to mid thigh Urinary Catheter Management: Gregory: Cath Placed During This Visit: yes Reason for Continuing Indwelling Catheter: Accurate Measurement of Urinary Output in Critically Ill Patients Urinary Catheter Date of Insertion: 12/14/24 Urinary Catheter Time of Insertion: 22:45 Data 12/20/24 04:01 12/20/24 04:01 Micro: Microbiology 12/15/24 00:39 Blood Culture - Final Blood NO GROWTH AFTER 5 DAYS 12/15/24 00:34 Blood Culture - Final Blood NO GROWTH AFTER 5 DAYS 12/19/24 16:20 Blood Culture - Preliminary Blood SPECIMEN COLLECTED 12/19/24 16:17 Blood Culture - Preliminary Blood SPECIMEN COLLECTED 12/17/24 14:05 Gram Stain - Final Sputum - Endotracheal Tube Aspirate Sputum Culture - Preliminary Yeast species A&P Assessment and plan (1) Rectus sheath hematoma: Seen on CT abdomen pelvis on 12/16. Hemoglobin mostly stable at around 8.6 Anticoagulation on hold currently. Appreciate surgical recommendations. (2) Nontraumatic retroperitoneal hematoma: (3) Hemorrhagic shock: Resolving. Was on 2 pressors. Currently weaned off Levophed. Maintain mean oral pressure 65. Patient does have leukocytosis maintained around 27,000. Has remained afebrile. Could be in setting of anemia. Check procalcitonin, blood culture, urinalysis, MRSA swab. Sputum culture growing yeast. Continue with current IV antibiotics for now. Will discontinue vancomycin if MRSA swab negative. Vancomycin to be dosed as per daily Vanco random levels. (4) Renal failure: Most likely in setting of hemorrhagic shock. Appreciate nephrology recommendations. Getting dialysis through temporary dialysis catheter for now. Monitor renal functions. Medical reconciliation done for nephrotoxic drugs. Monitor mean artery pressure. (5) Acute respiratory failure: On minimal ventilator settings. Appreciate ABG. Sputum culture growing yeast. Add fluconazole 200 mg IV daily. Continued respiratory failure because of poor neurological status. Oxygen supplementation keeping saturation over 90%. DuoNeb every 6 hour. (6) Ventilator dependent: Due to poor neurological response. Patient remains somnolent. Off sedation for 24 hours. Patient did require higher sedation till Thursday morning. Could be prolonged sedation in setting of liver and renal dysfunction due to poor fat metabolic from due to obesity. Appreciate electrolyte levels. Patient getting second session of dialysis. Check ammonia levels, CT head. Maintain off sedation for now. (7) Ischemia reperfusion injury of liver: Continue to monitor daily. (8) Atrial fibrillation with RVR: Heart rate currently stable. Bradycardic. Holding off on amiodarone drip. At baseline patient is not on NT arrhythmics or rate control medications. Holding off on anticoagulation given concerns for hemorrhagic shock. (9) Demand ischemia: Baseline troponin 300 on 12/15 with delta of -7 and 6 hours. Most likely in setting of hemorrhagic shock. Check A1c, lipid panel. Aspirin 81 mg oral daily. Holding off on statins and anticoagulation given liver dysfunction, hemorrhagic shock. (10) Lactic acidosis: Repeat lactate level. Elevated up to 15 on 12/15. (11) Hypertension: Goal pressure less than 140/90 mmHg with mean over 65. Holding off on antihypertensive given hemorrhagic shock recently. Monitor blood pressures. Qualifiers: Hypertension type: primary hypertension Qualified Code(s): I10 - Essential (primary) hypertension (12) CAD (coronary artery disease): Qualifiers: Coronary Disease-Associated Artery/Lesion type: [place] artery [place] vs. transplanted heart: [place] heart Associated angina: without angina Q ualified Code(s): I25.10 - Atherosclerotic heart disease of [place] coronary artery without angina pectoris (13) Atrial fibrillation: Qualifiers: Atrial fibrillation type: longstanding persistent Qualified Code(s): I 48.11 - Longstanding persistent atrial fibrillation (14) COPD (chronic obstructive pulmonary disease): Qualifiers: COPD type: emphysema Emphysema type: unspecified Qualified Code(s): J 43.9 - Emphysema, unspecified (15) DNR (do not resuscitate): (16) ELBA (obstructive sleep apnea): (17) Pulmonary hypertension: (18) Chronic anticoagulation: (19) Goals of care, counseling/discussion: Had a detailed goals of care discussion with patient's DPOA/daughter over the phone. We discussed patient is getting second session of dialysis. Renal function seem to be stabilizing but she continues to remain somnolent. Discussed given high sedation earlier it is possible that she would improve gradually and will need to monitor. Discussed about CODE STATUS. Daughter states she is DNR/DNI. Agreeable to the plan for now. All the questions were answered. (20) Somnolence: Plan Plan for the day: Patient's hemoglobin slightly low today as compared to yesterday. Has remained hemodynamically stable other than requiring minimal Levophed overnight. Repeat CT abdomen pelvis without contrast to monitor for rectus sheath hematoma. Transfuse if hemoglobin below 7. For now check daily. If hemodynamically unstable we will plan for repeating hemoglobin earlier. Appreciate nephrology recommendations. Plan for 1 more session of dialysis today. Abdominal x-ray to monitor for ileus. Lactate normal today. If abdominal x-ray is normal will plan to start on tube feedings Maintain mean artery pressure 65. Patient has remained afebrile. Continues to have leukocytosis. Repeat procalcitonin to trend. Follow-up blood cultures. Appreciate sputum culture. For now continue with fluconazole and Zosyn. IV albumin one-time. Again had extensive goals of care discussion with daughter at bedside. Daughter states patient quality of life at baseline was poor and she would not want to live on life support. We discussed that patient's somnolence is worrisome right now though every other aspect of her care seems to be improving. Discussed chances of somnolence could be in setting of sedating medications still lingering on given renal and liver dysfunction and it could take up to 24 to 48 hours more for improvement. Will consult neurology today. Analgesia: Anesthesia: Not needed. Patient somnolent. Glycemic control: No history of diabetes. Check A1c. Nutrition: N.p.o. CODE STATUS: DNR/DNI PUD prophylaxis: Protonix DVT prophylaxis: SCDs Discharge planning: Home with home health versus SNF depending on clinical picture. Continue with care at ICU This documentation was created by [employer] freelance programmer/app developer software. Every effort was made to ensure accuracy of freelance programmer/app developer. Any obvious errors or omissions should be clarified with the author of the document. PDMP PDMP Reviewed: Last Reviewed 12/20/24 15:27 by Marco Bender MD Attestations 2 Medical Necessity Statement*: Requires further hospitalization for management of somnolence, ventilator dependent respiratory failure due to poor neurological response, resolving hemorrhagic shock in setting of rectus sheath hematoma, anemia, SRINI requiring hemodialysis Critical Care Time: The high probability of a clinically significant, sudden or life threatening deterioration of the patient's [cardiac, pulmonary, renal, neurological] s ystem(s) required my full and direct attention, intervention and personal management. The critical care time is as shown. This time is in addition to time spent performing any reported procedures but includes the following: [x] Data and vital sign review and interpretation [x] Patient assessment, examination and intervention [x] Documentation [x] Medication orders and management Critical Care Time (min): 90 Coding Level of Care Code Critical Care >/= 30 minutes Critical care time (in minutes): 90 The high probability of a clinically significant, sudden or life threatening deterioration, as referenced in this documentation, required my full and direct attention, intervention and personal management. The critical care time shown is in addition to time spent performing any reported separately billable procedures and includes the following: [x] Data and vital sign review and interpretation [x ] Patient assessment, examination and intervention [x] Medication orders and management [x] Patient/Family updates as able [x] Care Coordination and Documentation. Diagnoses Rectus sheath hematoma S30.1XXA Nontraumatic retroperitoneal hematoma K68.3 Hemorrhagic shock R57.8 Renal failure N19 Acute respiratory failure J96.00 Ventilator dependent Z99.11 Ischemia reperfusion injury of liver K91.81 Atrial fibrillation with RVR I48.91 Demand ischemia I24.89 Lactic acidosis E87.20 Primary hypertension I10 Hypertension type: primary hypertension Coronary artery disease involving [place] coronary artery of [place] heart without angina pectoris I25.10 Coronary Disease-Associated Artery/Lesion type: [place] artery [place] vs. transplanted heart: [place] heart Associated angina: without angina Longstanding persistent atrial fibrillation I48.11 Atrial fibrillation type: longstanding persistent Pulmonary emphysema, unspecified emphysema type J43.9 COPD type: emphysema Emphysema type: unspecified DNR (do not resuscitate) Z66 ELBA (obstructive sleep apnea) G47.33 Pulmonary hypertension I27.20 Chronic anticoagulation Z79.01 Goals of care, counseling/discussion Z71.89 Somnolence R40.0
[2024-12-20] MEDS: heparin, porcine 1,000 unit/mL INJ 10 mL 10000 UNIT HE (15:30)
[2024-12-20] MEDS: heparin, porcine 1,000 unit/mL INJ 10 mL 10000 UNIT INTRACATH (16:17)
--- NOTE | 2024-12-20 16:46 | P.PCN_ITS ---
EEG Routine Details of Procedure EEG 92795- coma or sleep only: [id number]
--- NOTE | 2024-12-20 16:46 | PM.ACPR ---
EEG Routine Details of Procedure EEG 13145- coma or sleep only: [id number]
--- NOTE | 2024-12-20 17:15 | PM.CONSULT ---
Providers/Reason For Consult Consulting Physician/Specialty*: Peter Linton MD neurology and epilepsy Reason for Consult*: Encephalopathy and decreased level consciousness despite being off sedation for greater than 48 hours and patient with history of respiratory failure on ventilator, viral illness with elevated liver enzymes and renal failure requiring hemodialysis Attending Physician: Marco Bender MD Primary Care Provider: Awa Frederick MD History of Present Illness History of Present Illness Lelia Mcguire is a 79 year old female with decreased level consciousness despite being off sedation for greater than 48 hours and patient with history of respiratory failure on ventilator, viral illness with elevated liver enzymes and renal failure requiring hemodialysis. Noncontrast head CT December 19, 2024 Impression: 1. No acute intracranial hemorrhage or edema. 2. Moderate symmetric cerebral and cerebellar atrophy with advanced small vessel disease. Mild progression of small vessel disease since 2021. 3. Small air-fluid levels in the sphenoid sinuses. In view of the patient's decreased level consciousness neurology consult was obtained. Metabolic lab performed on 12/20/2024 WBC elevated 27.23 H&H decreases 7.8 and 24.5 respectively. Platelet count decreased at 114. BUN and creatinine elevated at 56 and 2.9 respectively. AST was elevated 189 ALT elevated 398. Labs on 12/19/2024 magnesium 2.3 which is normal. Ammonia normal at 33. TSH was elevated 5.85. Other labs were unrevealing. Drug allergies: Please see allergy list: Current medications: Please see MAR Past medical history: Renal failure Ischemic reperfusion injury of the liver Rectus sheath hematoma Atrial fibrillation Hemorrhagic shock Obstructive sleep apnea Acute respiratory failure Chronic anticoagulation Non-ST segment elevated myocardial infarction Pulmonary hypertension Lactic acidosis Asthma exacerbation Osteoarthritis left knee Statin intolerance History of deep venous thrombosis Aortic stenosis Chronic venous insufficiency of the lower extremities Bradycardia Osteoporosis Carotid atherosclerosis Posttraumatic stress disorder Coronary artery disease Hypertension Depression Habits: Unknown Family history: Unable to obtain due to medical condition Review of Systems General: Reports: ROS unobtainable due to endotracheal tube and ROS unobtainable due to medical condition Medications/Allergies Home Medications ?Medication ?Instructions ?Recorded ?Confirmed ?Last Taken ?Type cyanocobalamin (vitamin B-12) 1,000 mcg PO QPM 05/30/21 12/12/24 08/21/22 History 1,000 mcg tablet (Vitamin B-12) calcium carbonate 500 mg PO QPM 05/20/22 12/12/2422 History cholecalciferol (vitamin D3) 50 50 mcg PO QPM 05/20/22 12/12/24 08/21/22 History mcg (2,000 unit) tablet (Vitamin D3) cetirizine 10 mg tablet 10 mg PO BID PRN allergy symptoms 06/10/23 12/12/24 Unknown Rx #180 tabs isosorbide mononitrate 30 mg 30 mg PO DAILY #90 tabs 11/26/23 12/12/24 Unknown Rx tablet,extended release 24 hr lisinopril 2.5 mg tablet 2.5 mg PO QAM #90 tabs 12/18/23 12/12/24 Unknown Rx furosemide 20 mg tablet See Rx Instructions .Route 01/07/24 12/12/24 Unknown Rx .COMPLEX #180 tabs hydrocodone 5 mg-acetaminophen 325 1 tab PO Q8H PRN pain 7 days #20 01/07/24 12/12/24 Unknown Rx mg tablet tabs potassium chloride 10 mEq 20 meq (2 x 10 mEq) PO DAILY #180 01/07/24 12/12/24 Unknown Rx tablet,extended release tabs rivaroxaban 20 mg tablet (Xarelto) See Rx Instructions .Route 01/07/24 12/12/24 Unknown Rx .COMPLEX #90 tabs nitroglycerin 0.4 mg sublingual 0.4 mg sublingual Q5M PRN chest 08/24/24 12/12/24 Unknown Rx tablet pain #25 tabs doxycycline hyclate 100 mg capsule 100 mg PO BID 10 days #20 caps 12/11/24 Unknown Rx guaifenesin 600 mg tablet, 600 mg PO BID 3 days #6 tabs 12/11/24 Unknown Rx extended release 12 hr (Mucinex) prednisone 20 mg tablet 40 mg (2 x 20 mg) PO DAILY 3 days 12/11/24 Unknown Rx #6 tabs acetaminophen 650 mg 650 mg PO Q12H 12/12/24 12/12/24 Unknown History tablet,extended release (Tylenol Arthritis Pain) Allergies Allergy/AdvReac Type Severity Reaction Status Date / Time iodine Allergy Unknown ALGY-Bliste Verified 08/30/24 07:05 r metoprolol Allergy Unknown Unknown Verified 08/30/24 07:05 alcohol Allergy ALGY-Hives Verified 08/30/24 07:05 alfalfa Allergy ALGY-Rash Verified 08/30/24 07:05 aloe vera Allergy ALGY-Bliste Verified 08/30/24 07:05 r atenolol Allergy ALGY-Swell Verified 08/30/24 07:05 Lip/Tongue/Throat bamboo Allergy ALGY-Rash Verified 08/30/24 07:05 barley Allergy ALGY-Rash Verified 08/30/24 07:05 bran Allergy ALGY-Hives Verified 08/30/24 07:05 [place] Derivatives Allergy ALGY-Hives Verified 08/30/24 07:05 clams Allergy ALGY-Difficulty Verified 08/30/24 07:05 Swallowing crab Allergy Unknown Verified 08/30/24 07:05 crayfish Allergy Unknown Verified 08/30/24 07:05 diphenhydramine (From Allergy ADR-Itching Verified 08/30/24 07:05 Benadryl) epinephrine Allergy ADR/ALGY-Pa Verified 08/30/24 07:05 lpitations grapefruit Allergy Unknown Verified 08/30/24 07:05 grass pollen Allergy ALGY-Rash Verified 08/30/24 07:05 juniper tar Allergy Unknown Verified 08/30/24 07:05 kiwi Allergy ALGY-Hives Verified 08/30/24 07:05 latex Allergy ALGY-Rash Verified 08/30/24 07:05 lavender (Lavandula Allergy ALGY-Rash Verified 08/30/24 07:05 angustifolia) lemon Allergy ALGY-Rash Verified 08/30/24 07:05 lemon oil Allergy ALGY-Rash Verified 08/30/24 07:05 licorice Allergy Unknown Verified 08/30/24 07:05 [place] Allergy Unknown Verified 08/30/24 07:05 molasses Allergy Unknown Verified 08/30/24 07:05 mold Allergy ALGY-Rash Verified 08/30/24 07:05 mussels Allergy Unknown Verified 08/30/24 07:05 nut - unspecified Allergy ALGY-Hives Verified 08/30/24 07:05 oats Allergy ALGY-Hives Verified 08/30/24 07:05 octopus Allergy Unknown Verified 08/30/24 07:05 orange Allergy ALGY-Rash Verified 08/30/24 07:05 oyster extract Allergy Unresponsiv Verified 08/30/24 07:05 e passion fruit Allergy Unknown Verified 08/30/24 07:05 scallops Allergy Unknown Verified 08/30/24 07:05 shellfish derived Allergy ALGY-Swell Verified 08/30/24 07:05 Lip/Tongue/Throat shrimp Allergy Unknown Verified 08/30/24 07:05 squid Allergy Unknown Verified 08/30/24 07:05 wheat Allergy ALGY-Hives Verified 08/30/24 07:05 shell fish Allergy Severe ALGY-Swell Uncoded 08/30/24 07:05 Lip/Tongue/Throat abolone Allergy Unknown Uncoded 08/30/24 07:05 anchovie Allergy ALGY-Hives Uncoded 08/30/24 07:05 antibacterial soap Allergy Unknown Uncoded 08/30/24 07:05 berries Allergy ALGY-Hives Uncoded 08/30/24 07:05 carob Allergy Unknown Uncoded 08/30/24 07:05 contrast dye Allergy ALGY-Difficulty Uncoded 08/30/24 07:05 Breathing gold Allergy Unknown Uncoded 08/30/24 07:05 hemp oil Allergy ALGY-Rash Uncoded 08/30/24 07:05 [place] Allergy Unknown Uncoded 08/30/24 07:05 lobster Allergy Unknown Uncoded 08/30/24 07:05 malt Allergy ALGY-Bliste Uncoded 08/30/24 07:05 r mesquite Allergy Unknown Uncoded 08/30/24 07:05 millet Allergy ALGY-Rash Uncoded 08/30/24 07:05 mink oil Allergy ALGY-Rash Uncoded 08/30/24 07:05 mola Allergy Unknown Uncoded 08/30/24 07:05 MSG Allergy Unknown Uncoded 08/30/24 07:05 prawn Allergy Unknown Uncoded 08/30/24 07:05 rye Allergy ALGY-Rash Uncoded 08/30/24 07:05 snail Allergy Unknown Uncoded 08/30/24 07:05 sorghum Allergy Unknown Uncoded 08/30/24 07:05 tangello Allergy Unresponsiv Uncoded 08/30/24 07:05 e tangerine Allergy Unknown Uncoded 08/30/24 07:05 worcestershire sauce AdvReac Severe ALGY-Swell Uncoded 08/30/24 07:05 Lip/Tongue/Throat Current Medications Generic Name Dose Route Start Last Admin Trade Name Freq PRN Reason Stop Dose Admin Albuterol/Ipratropium 3 ml 12/12/24 02:00 12/20/24 14:14 Ipratropium-Albuterol 3 Ml Neb INHALATION 3 ml Q6H.RESP RAPHAEL Administration Chlorhexidine Gluconate 1 applic 12/17/24 00:45 12/20/24 08:36 Chlorhexidine Gluconate 4% Btl 118 Ml TOPICAL Not Given BEDTIME RAPHAEL Amiodarone HCl/Dextrose 360 mg in 200 mls @ 0 mls/hr 12/14/24 22:15 12/15/24 18:27 Nexterone IV Infused .Q0M RAPHAEL Titration Protocol Per Protocol Norepinephrine Bitartrate 4 mg in 250 mls @ 0 mls/hr 12/14/24 22:30 12/20/24 05:50 Levophed IV 2 mcg/min .Q0M RAPHAEL 7.5 mls/hr Titration Protocol Per Protocol Piperacillin Sod/Tazobactam 50 mls @ 12.5 mls/hr 12/16/24 22:00 12/20/24 13:13 Sod 3.375 gm/ Sodium Chloride IV Infused Q12H RAPHAEL Infusion Fluconazole 200 mg in 100 mls @ 100 mls/hr 12/19/24 11:45 12/20/24 14:05 Diflucan Premix IV Infused Q24H RAPHAEL Infusion Lanolin 1 applic 12/14/24 09:33 12/16/24 08:27 Lanolin Oint 7 Gm TOPICAL 1 applic PRN PRN Administration DRYNESS Pantoprazole Sodium 40 mg 12/12/24 07:00 12/20/24 06:40 Pantoprazole 40 Mg Sdv IVP 40 mg ACBREAKFAST RAPHAEL Administration Senna 17.2 mg 12/12/24 09:00 12/20/24 08:37 Sennosides 8.6 Mg Tablet PO 17.2 mg DAILY RAPHAEL Administration PFSH Acute PFSH: Medical History (Updated 12/20/24 @ 17:31 by Peter Linton MD) Asthma Osteoarthritis of left knee Statin intolerance Osteoarthritis of right hip severe on imaging; Hx of deep venous thrombosis right leg Chronic venous insufficiency of lower extremity R leg; hx of DVT this leg Disability of walking Aortic stenosis Osteoporosis didn't tolerate oral bisphosphonates; did prolia for 5 yrs; she doesn't want to do any more DEXAs Bradycardia sees cardio [facility] Carotid atherosclerosis bilateral mild on US 04/08 Chronic atrial fibrillation Chest pain Symptomatic bradycardia Anticoagulation adequate with anticoagulant therapy COPD (chronic obstructive pulmonary disease) Pulmonary arterial hypertension Sleep apnea not using CPAP; sleeps in recliner Hypertension CAD (coronary artery disease) seeing cardio in [facility] Surgical History Status post laparoscopic cholecystectomy (03/06/21) H/O left knee surgery arthroscopic H/O right knee surgery arthroscopic H/O tubal ligation History of colonoscopy with polypectomy 2017 History of esophagogastroduodenoscopy (EGD) Family History Mother Diabetes CAD (coronary artery disease) Social History Smoking and tobacco/nicotine status: never used tobacco/nicotine Second hand smoke exposure: No Alcohol intake: never Substance/Drug Use: never Lives independently: Yes Household members: none Marital status: / Number of children: 3 Highest education level completed: Some College, No Degree Current occupational status: 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 Do you think of yourself as: Straight/Heterosexual Current gender identity: Female Female Reproductive History: Spontaneous abortions: No Vitals/I&O/Wt Last Vital Signs Temp 98.9 F 12/20/24 16:00 Pulse 56 L 12/20/24 17:00 Resp 16 12/20/24 15:26 BP 121/53 12/20/24 17:00 Pulse Ox 97 12/20/24 16:45 O2 Del Method Mechanical Ventilation 12/20/24 14:00 O2 Flow Rate 2 12/15/24 04:30 FiO2 28 12/20/24 15:26 12/20/24 12/20/24 12/20/24 06:59 14:59 22:59 Intake Total 117.5 / 298.625 200 / 200 Output Total 150 / 150 Balance -32.5 / 148.625 200 / 200 Weight last 48 hrs Weight 219 lb 5.759 oz Weight 216 lb 0.848 oz Weight 221 lb 9.033 oz Physical Exam Narrative: The patient is intubated. The patient is breathing at least 1 breath over the ventilator setting which is set at 16 respirations per minute. Patient lying in the separate posture. Patient's pupils 3 mm and is difficult determine if pupils are reactive to light even when the room was darkened. There was no corneal reflexes. Patient did not grimace or move to sternal rub or when pain was applied to her nailbeds bilaterally on her hands or feet. Deep tendon reflexes: Plantar responses flexor bilaterally. There was no clonus. Sensory examination revealed no movement to pain applied to her nailbeds on the upper and lower extremities bilaterally. Throat difficult to assess secondary to intubation 2. Patient is currently undergoing hemodialysis at the bedside. Lungs revealed no obvious wheezing. Heart regular rhythm and rate. Extremities were negative for cyanosis. Urinary Catheter Management: Gregory: Cath Placed During This Visit: yes Reason for Continuing Indwelling Catheter: Accurate Measurement of Urinary Output in Critically Ill Patients Urinary Catheter Date of Insertion: 12/14/24 Urinary Catheter Time of Insertion: 22:45 Data 12/20/24 04:01 12/20/24 04:01 Micro: Microbiology 12/19/24 16:20 Blood Culture - Preliminary Blood NEGATIVE TO DATE 12/19/24 16:17 Blood Culture - Preliminary Blood NEGATIVE TO DATE 12/15/24 00:39 Blood Culture - Final Blood NO GROWTH AFTER 5 DAYS 12/15/24 00:34 Blood Culture - Final Blood NO GROWTH AFTER 5 DAYS A&P Assessment and plan (1) Encephalopathy acute: Impression: 1. Acute encephalopathy 2. Respiratory failure requiring intubation 3. Elevated white count 4. Elevated liver enzymes 5. Acute renal failure Plan: 1. EEG at bedside to assess for encephalopathy and to rule out subclinical seizures 2. Agree with current treatment PDMP PDMP Reviewed: Not Reviewed Consult Attestations Medical Necessity Statement: The patient was evaluated by neurology for decreased level consciousness/encephalopathy Coding Level of Care Code 71493 Diagnoses Encephalopathy acute G93.40
[2024-12-21] VITALS (59 sets, daily range): BP systolic 113–163; BP diastolic 40–92; PULSE 54–74; RESP 14–24; TEMP 36.4–37.4; O2SAT 90–100
[2024-12-21] MEDS: ipratropium-albuterol 3 mL Neb INHALATION ×4 (01:51→20:15)
--- NOTE | 2024-12-21 03:27 | PC.NURSE ---
Vtach Patient had a run of vtach lasting for [address] Sen was contacted. Received orders for amiodarone 400 mg PO BID and amiodarone bolus and drip if patient has another run of vtach lasting longer than 30 seconds.
[2024-12-21] MEDS: amiodarone 200 mg Tablet 400 MG PO (04:08)
[2024-12-21 04:29] LABS: ABG PH Result 7.45 (7.35-7.45); Alveolar-Arterial Oxygen Gradi 10.4 mmHg (5-10); Arterial Blood Gas Hematocrit 24.5 % (37-47); Base Excess ABG 2.1 mmol/L (-2.0-2.0); Blood Gas Allen Test Pos; Blood Gas Sample Site Brachial, right; Blood Gas Sample Type Arterial; Blood Gas Tidal Volume 0.38; HCO3 ABG 26.2 mmol/L (22-26); HGB O2 Sat 93.1 % (95-100); Ionized Calcium Level - ABG 1.1 mmol/L (1.1-1.4); Methemoglobin 0.8 % (0.4-1.5); Oxygen Device VENT; Oxygen Saturation ABG 95.7; PO2 ABG 72.9 mmHg (80.0-100.0); PO2 FiO2 Ratio Arterial Blood 260; Potassium Level - ABG 4.1 mmol/L (3.5-5.0)
[2024-12-21 04:43] LABS: Basophils # 0.1 10^3/uL (0.0-0.1); Basophils % 0.3 %; Eosinophils # 0.2 10^3/uL (0.0-0.8); Eosinophils % 0.7 %; Hematocrit 23.4 % (36-47); Lymphocytes # 1.4 10^3/uL (0.8-4.8); Lymphocytes % 6.1 %; Mean Corpuscular HGB Conc 32.1 g/dL (30-55); Mean Corpuscular Hemoglobin 28.1 pg (27-33); Mean Corpuscular Volume 87.6 fl (85-98); Mean Platelet Volume 10.3 fL (7.4-10.4); Monocytes # 1.7 10^3/uL (0.2-0.9); Monocytes % 7.6 %; Neutrophils # 14.19 10^3/uL (1.8-7.7); Neutrophils % 64.1 %; Nucleated Red Blood Cells # 0.1 /100WBC; Nucleated Red Blood Cells % 0.4 %; Platelet Count 104 10^3/cmm (157-399); Red Blood Count 2.67 10^6/uL (3.85-5.65); Red Cell Distribution Width 19.1 % (12.1-15.1); White Blood Count 22.14 10^3/uL (3.29-11.43)
[2024-12-21 04:58] LABS: Alanine Aminotransferase 275 U/L (0-33); Albumin Level 2.8 g/dL (3.5-5.2); Alkaline Phosphatase 80 U/L (35-105); Anion Gap 18.3 (5-19); Aspartate Amino Transferase 140 U/L (0-32); Blood Urea Nitrogen 49 mg/dL (8-23); Carbon Dioxide 24 mmol/L (22-29); Chloride 101 mmol/L (98-107); Creatinine Clr Calc Pharmacy 20.6071; Globulin 2.3 g/dL (1.3-4.6); Glucose 99 mg/dL (65-115); Osmolality Calculated 301 mOsm/kg (285-295); Potassium 4.3 mmol/L (3.5-5.1); Sodium 139 mmol/L (136-145); Total Bilirubin 1.9 mg/dL (0.15-1.2); Total Protein 5.1 g/dL (6.6-8.7)
[2024-12-21 05:06] LABS: Magnesium 2.3 mg/dL (1.7-2.3)
[2024-12-21 05:17] LABS: Slide Review Slide Review Perform
--- NOTE | 2024-12-21 06:00 | XRR_ITS ---
PROCEDURE INFORMATION: Exam: XR Chest Exam date and time: 12/21/2024 4:36 AM Age: 79 years old Clinical indication: Dyspnea; Additional info: Resp failure, intubated TECHNIQUE: Imaging protocol: Radiologic exam of the chest. Views: 1 view. COMPARISON: CR XR chest 1V portable [id number] 02/15/2025 05:38 FINDINGS: Tubes, catheters and devices: Endotracheal tube is in satisfactory position. Feeding tube is in satisfactory position. Right IJ approach central line is in satisfactory position, with distal tip at the level of the SVC/RA junction. Lungs: Low lung volumes. There are increased lung markings and haziness of the lungs in association with small left pleural effusion, which in the setting of cardiomegaly is consistent with pulmonary edema. Pneumonia should be excluded clinically. No pneumothorax. Pleural spaces: See Lungs finding. Heart/Mediastinum: Stable cardiomediastinal silhouette. Bones/joints: Degenerative changes of the spine seen. Organs: Cholecystectomy clips project over the right upper quadrant. XR/XR chest 1V portable [id number] IMPRESSION: Imaging findings of pulmonary edema with small left pleural effusion. Pneumonia should be excluded clinically.
[2024-12-21] MEDS: pantoprazole 40 mg SDV IVP (06:20)
[2024-12-21] MEDS: piperacillin-tazobactam 3.375 GM in sodium chloride 0.9% (plus) 50 ML IV (09:07)
[2024-12-21] MEDS: sennosides 8.6 mg Tablet 17.2 MG PO (09:07)
--- NOTE | 2024-12-21 10:01 | PM.ACPR ---
Documented by User: Yessi Roca 12/21/24 10:02 EEG Routine Details of Procedure Details/Comments: EEG at bedside to assess for encephalopathy and to rule out subclinical seizures Documented by User: Peter Linton MD 12/21/24 12:30 EEG Routine Details of Procedure Details/Comments: EEG at bedside to assess for encephalopathy and to rule out subclinical seizures EEG code 81005: Coma or sleep only EEG TEMPLATE: This is a 19 channel routine video surface EEG recording utilizing the MixRank software with surface and EKG electrodes. The procedure was performed utilizing the international 10-20 system. Patient name: Lelia Mcguire Date of : 1945 Patient age [age] years old Identification number: [id number] Referring Physician: Dr. Marco Bender Interpreting physician: Dr. Peter Linton EEG#: EEG Start time: 10:18:23 EEG End time: 11:11:15 Duration of study: 52 minutes Date of study: 12/21/2024 Reason for study: Decreased level of consciousness assess for subclinical status epilepticus and to assist in determining if anticonvulsant medications are required Skull defects: None Condition of recording: The patient was reported to be unresponsive Cooperation: N/A Activation procedures: None Medications: Amiodarone Diflucan intravenously, hemodialysis Background activity: Background activity during the recording consisted of wakefulness consisted of 5 to 6 Hz low voltage theta activity intermixed with low voltage generalized delta slowing. Interictal activity: None Ictal activity: None Impression: This is an abnormal portable 52-minute surface EEG recording secondary to generalized low voltage theta/delta slowing seen throughout the recording. Findings consistent with a diffuse encephalopathic process, nonspecific with regards to etiology. Note: No clinical or subclinical seizure activity was seen. Physician name/Signature: Peter Linton MD putaway driver/Signature: Yessi GARZA T.
--- NOTE | 2024-12-21 10:05 | PM.PN ---
Subjective Subjective: no new complaints Medications: Reviewed: Yes Vitals/I&O/Wt Last Vital Signs Temp 99.2 F 12/21/24 05:09 Pulse 57 L 12/21/24 08:00 Resp 14 12/21/24 08:00 BP 119/80 12/21/24 06:30 Pulse Ox 96 12/21/24 08:00 O2 Del Method Mechanical Ventilation 12/21/24 08:00 O2 Flow Rate 2 12/15/24 04:30 FiO2 28 12/21/24 08:00 12/20/24 12/21/24 12/21/24 22:59 06:59 14:59 Intake Total 598.75 / 798.75 50 / 848.75 Output Total 1655 / 1655 250 / 1905 Balance -1056.25 / -856.25 -200 / -1056.25 Weight last 48 hrs Weight 96.5 kg Weight 97.5 kg Weight 99.5 kg Physical Exam Narrative: Intubated, sedated Urinary Catheter Management: Gregory: Cath Placed During This Visit: yes Reason for Continuing Indwelling Catheter: Accurate Measurement of Urinary Output in Critically Ill Patients Urinary Catheter Date of Insertion: 12/14/24 Urinary Catheter Time of Insertion: 22:45 Data 12/21/24 04:33 12/21/24 04:33 Micro: Microbiology 12/19/24 16:20 Blood Culture - Preliminary Blood NEGATIVE TO DATE 12/19/24 16:17 Blood Culture - Preliminary Blood NEGATIVE TO DATE A&P Assessment and plan (1) SRINI (acute kidney injury): 1. Acute kidney injury: Probably ATN in the setting of shock and sepsis. Patient currently on pressors, oliguric. She is currently DNR, -Has worsening SRINI and uREMIA --> Family decided to proceed with dialysis , s/p HD x 3 sessions , 2. Shock, hypovolemic in the setting of blood loss 3. Acute on chronic respiratory failure currently on vent 4. History of coronary artery disease, CHF and pulmonary hypertension 5. Anemia, 6. Metabolic encephalopathy , improving Patient is currently DNR. Patient evaluated using audiovisual cart. Time spent 40 minutes. PDMP PDMP Reviewed: Not Reviewed Attestations Medical Necessity Statement*: per [facility] Coding Level of Care Code Acute Code for [facility] Fwd Diagnoses SRINI (acute kidney injury) N17.9
[2024-12-21] MEDS: fluconazole premix 200 MG/100 ML PREMIX 100 MG IV (12:20)
--- NOTE | 2024-12-21 12:40 | ECG_ITS ---
[facility] Date: 2024-[facility]21 Pat Name: Lelia Mcguire Department: Room: ICU12 Gender: Female Asw/Asuw Tactical Air Controller: : 1945 Requested By: Marco Bender Order Number: [id number] Khushbu MD: Nahn Perrin M.D. Measurements Intervals [place] Rate: 54 P: 0 [place]: 0 QRS: 81 QRSD: 106 T: 61 QT: 457 QTc: 436 Interpretive Statements ATRIAL FIBRILLATION WITH SLOW VENTRICULAR RESPONSE NONSPECIFIC T-WAVE ABNORMALITY Compared to ECG 12/15/2024 15:09:51 Ventricular premature complex(es) no longer present Aberrant conduction of supraventricular beat(s) no longer present T-wave abnormality still present Electronically Signed On 12-22-2024 22:19:25 MULTI MEDIA SPECIALIST by Nhan Perrin M.D. [email or web address]
--- NOTE | 2024-12-21 13:04 | P.PN_ITS ---
Subjective 2 Subjective: Overnight patient had 1 episode of 20 beats of nonsustained V. tach. Given 150 mg of IV amiodarone. Never received oral amiodarone. Otherwise hemodynamically stable. Appreciate urine output. Currently on ventilator support with pressure support of 14/5. No apneic events noted during examination for around 5 minutes. Saturation maintained. Patient opening her eyes but not following directions on physical stimulus today. Medications: Reviewed: Yes Vitals/I&O/Wt Last Vital Signs Temp 98.9 F 12/21/24 08:00 Pulse 56 L 12/21/24 13:02 Resp 15 12/21/24 13:02 BP 119/63 12/21/24 10:30 Pulse Ox 96 12/21/24 13:02 O2 Del Method Mechanical Ventilation 12/21/24 13:02 O2 Flow Rate 2 12/15/24 04:30 FiO2 28 12/21/24 13:02 12/20/24 12/21/24 12/21/24 22:59 06:59 14:59 Intake Total 598.75 / 798.75 50 / 848.75 Output Total 1655 / 1655 250 / 1905 Balance -1056.25 / -856.25 -200 / -1056.25 Weight last 48 hrs Weight 96.5 kg Weight 97.5 kg Weight 99.5 kg Physical Exam 2 Narrative: General: Intubated, not sedated, somnolent, GCS: E2 M1 VT, opening eyes on physical stimulus HEENT: PERRLA, pupils bilaterally equal and reactive Chest: Normal vesicular breath sounds, no added sounds, equal good air entry bilaterally CVS: S1-S2 regular, no murmurs, no tachycardia, no gallops, no rubs Abdomen: Soft, nontender, no organomegaly, bowel sounds present Neuro: No focal deficits, no facial deformity, Extremity: Bilateral 1+ pedal and edema up to mid thigh Urinary Catheter Management: Gregory: Cath Placed During This Visit: yes Reason for Continuing Indwelling Catheter: Accurate Measurement of Urinary Output in Critically Ill Patients Urinary Catheter Date of Insertion: 12/14/24 Urinary Catheter Time of Insertion: 22:45 Data 12/21/24 04:33 12/21/24 04:33 Micro: Microbiology 12/19/24 16:20 Blood Culture - Preliminary Blood NEGATIVE TO DATE 12/19/24 16:17 Blood Culture - Preliminary Blood NEGATIVE TO DATE A&P Assessment and plan (1) Rectus sheath hematoma: Seen on CT abdomen pelvis on 12/16. Repeat CT scan from 12/20 shows stable large hematoma Hemoglobin down to 7.5. Stable for last 2 days. Anticoagulation on hold currently. Appreciate surgical recommendations. Plan for transfusion for hemoglobin of less than 7. (2) Hemorrhagic shock: Resolved. Currently weaned off Levophed. Maintain mean oral pressure 65. (3) Leukocytosis: Patient does have leukocytosis maintained over 20,000. Has remained afebrile. Could be in setting of anemia. Trend procalcitonin, follow-up blood culture, urinalysis, negative MRSA swab. Sputum culture growing yeast. Switch from Zosyn to meropenem because of persistent leukocytosis. Cultures so far negative. Vancomycin discontinued for negative MRSA swab. Check peripheral smear (4) Nonsustained ventricular tachycardia: At baseline bradycardic. 2 runs of nonsustained V. tach in last 24 hours. Check EKG to monitor for QTc. Maintain magnesium around 2, potassium around 4. Hold off on amiodarone for now given bradycardia. Will continue to monitor. (5) Metabolic encephalopathy: Off sedation more than 50 hours. Patient did require higher sedation till Thursday morning. Could be prolonged sedation in setting of liver and renal dysfunction due to poor fat metabolic from due to obesity. Appreciate electrolyte levels. Patient getting second session of dialysis. Negative ammonia levels, CT head. Maintain off sedation for now. Appreciate neurological consultation. EEG negative for subclinical seizures. (6) Acute respiratory failure: On minimal ventilator settings. Appreciate ABG. For now we will continue the patient to remain on pressure support of 14/5. Monitor for apneic events. Sputum culture growing yeast. Continue fluconazole 200 mg IV daily. Continued respiratory failure because of poor neurological status. Oxygen supplementation keeping saturation over 90%. DuoNeb every 6 hour. (7) Ventilator dependent: Due to poor neurological response. Patient remains somnolent due to metabolic encephalopathy. Slightly more awake today and responding with opening eyes to physical stimulus today. (8) Renal failure: Most likely in setting of hemorrhagic shock. Appreciate nephrology recommendations. On as needed dialysis. Monitor renal functions. Medical reconciliation done for nephrotoxic drugs. Monitor mean artery pressure. (9) Nontraumatic retroperitoneal hematoma: (10) Ischemia reperfusion injury of liver: Continue to monitor daily. (11) Atrial fibrillation with RVR: Heart rate currently stable. Bradycardic. Holding off on amiodarone drip. At baseline patient is not on NT arrhythmics or rate control medications. Holding off on anticoagulation given concerns for hemorrhagic shock. (12) Demand ischemia: Baseline troponin 300 on 12/15 with delta of -7 and 6 hours. Most likely in setting of hemorrhagic shock. Appreciate A1c, lipid panel. Aspirin 81 mg oral daily. Holding off on statins and anticoagulation given liver dysfunction, hemorrhagic shock. (13) Lactic acidosis: Repeat lactate level normal. Elevated up to 15 on 12/15. (14) Hypertension: Goal pressure less than 140/90 mmHg with mean over 65. Holding off on antihypertensive given hemorrhagic shock recently. Monitor blood pressures. Qualifiers: Hypertension type: primary hypertension Qualified Code(s): I10 - Essential (primary) hypertension (15) CAD (coronary artery disease): Qualifiers: Associated angina: without angina Coronary Disease-Associated Artery/Lesion type: [place] artery [place] vs. transplanted heart: [place] heart Qualified Code(s): I25.10 - Atherosclerotic heart disease of [place] coronary artery without angina pectoris (16) COPD (chronic obstructive pulmonary disease): Qualifiers: COPD type: emphysema Emphysema type: unspecified Qualified Code(s): J 43.9 - Emphysema, unspecified (17) DNR (do not resuscitate): (18) ELBA (obstructive sleep apnea): (19) Pulmonary hypertension: (20) Chronic anticoagulation: (21) Goals of care, counseling/discussion: Had a detailed goals of care discussion with patient's DPOA/daughter over the phone. We discussed patient is getting second session of dialysis. Renal function seem to be stabilizing but she continues to remain somnolent. Discussed given high sedation earlier it is possible that she would improve gradually and will need to monitor. Discussed about CODE STATUS. Daughter states she is DNR/DNI. Agreeable to the plan for now. All the questions were answered. (22) Somnolence: Plan Plan for the day: Had extensive goals of care discussion again with daughter at bedside. We discussed patient does show slight improvement in her neurological exam today as she is opening her eyes to physical stimulus. Patient is breathing by herself on pressure support at ventilator. We discussed that it is possible that she will recover slowly. We discussed that there is no rash to make any decision as of now and can continue the current care for 2 next few days to see if there is any significant neurological improvement. Daughter is agreeable and would want to hold off on making decision of hospice care/comfort care for now. Discussed about possible discharge or transfer to select facility to monitor for slow recovery of neurological status hopefully within next 1 week to 10 days. She is agreeable. Will consult case management. Analgesia: Anesthesia: Not needed. Patient somnolent. Glycemic control: No history of diabetes. Check A1c. Nutrition: Tube feeds with Jevity 10 cc every hour, increase 10 cc every 4 hour with a goal of 50 cc/h, free water flushes 100 cc every 6 hour. Dietitian consultation.. CODE STATUS: DNR/DNI PUD prophylaxis: Protonix DVT prophylaxis: SCDs Discharge planning: Home with home health versus SNF depending on clinical picture. Continue with care at ICU This documentation was created by [employer] train inspector software. Every effort was made to ensure accuracy of train inspector. Any obvious errors or omissions should be clarified with the author of the document. PDMP PDMP Reviewed: Last Reviewed 12/20/24 15:27 by Marco Bender MD Attestations 2 Medical Necessity Statement*: Requires further hospitalization for management of metabolic encephalopathy/somnolence leading to respiratory failure in a patient with rectus sheath significant hematoma with concerns for anemia requiring blood transfusion, hemorrhagic shock leading to SRINI requiring dialysis Critical Care Time: The high probability of a clinically significant, sudden or life threatening deterioration of the patient's [neurological, cardiac, renal, pulmonary] s ystem(s) required my full and direct attention, intervention and personal management. The critical care time is as shown. This time is in addition to time spent performing any reported procedures but includes the following: [x] Data and vital sign review and interpretation [x] Patient assessment, examination and intervention [x] Documentation [x] Medication orders and management 90 Critical Care Time (min): 90 Coding Level of Care Code Critical Care >/= 30 minutes Critical care time (in minutes): 90 The high probability of a clinically significant, sudden or life threatening deterioration, as referenced in this documentation, required my full and direct attention, intervention and personal management. The critical care time shown is in addition to time spent performing any reported separately billable procedures and includes the following: [x] Data and vital sign review and interpretation [x ] Patient assessment, examination and intervention [x] Medication orders and management [x] Patient/Family updates as able [x] Care Coordination and Documentation. Other Coding Information This patient has a high probability of clinically significant, sudden or life threatening deterioration of the patient's (neurological/pulmonary/cardiac/renal/ID/endocrine) systems required my full, direct attention, the highest level of physician preparedness for urgent intervention and personal management. I managed/supervised life or organ supporting interventions that required frequent physician assessment. I devoted my full attention in the ICU to the direct care of this patient for the period of time indicated above. Time I spent with family or surrogate(s) is included only if the patient was incapable of providing necessary information or participating in decision making. This time includes the following services provided: Telemetry review Mechanical Ventilation Hemodynamic interpretation, assessment and management Review and interpretation of CXR Review and interpretation of lab values Review and interpretation of microbiologic data and culture results Review of medications and administration Review and interpretation of Nutrition requirements and management Discussion of management with other consultants and services Clinical update to family members Diagnoses Rectus sheath hematoma S30.1XXA Hemorrhagic shock R57.8 Leukocytosis D72.829 Nonsustained ventricular tachycardia I47.29 Metabolic encephalopathy G93.41 Acute respiratory failure J96.00 Ventilator dependent Z99.11 Renal failure N19 Nontraumatic retroperitoneal hematoma K68.3 Ischemia reperfusion injury of liver K91.81 Atrial fibrillation with RVR I48.91 Demand ischemia I24.89 Lactic acidosis E87.20 Primary hypertension I10 Hypertension type: primary hypertension Coronary artery disease involving [place] coronary artery of [place] heart without angina pectoris I25.10 Associated angina: without angina Coronary Disease-Associated Artery/Lesion type: [place] artery [place] vs. transplanted heart: [place] heart Pulmonary emphysema, unspecified emphysema type J43.9 COPD type: emphysema Emphysema type: unspecified DNR (do not resuscitate) Z66 ELBA (obstructive sleep apnea) G47.33 Pulmonary hypertension I27.20 Chronic anticoagulation Z79.01 Goals of care, counseling/discussion Z71.89 Somnolence R40.0
--- NOTE | 2024-12-21 13:07 | PC.OT ---
PATIENT REMAINS ON VENT AND UNABLE TO ACTIVELY PARTICIPATE IN SKILLED OT. DISCHARGE OT. IF PATIENT IS ABLE TO ACTIVELY PARTICIPATE IN SKILLED THERAPY WILL AWAIT NEW ORDERS.
[2024-12-21 13:25] LABS: LAB Peripheral Smear Sent for Review
[2024-12-21 13:44] LABS: Free T4 Free Thyroxine 0.89 ng/dL (0.82-1.77); Procalcitonin 3.73 ng/mL (0-0.5); Thyroid Stimulating Hormone 4.26 uIU/mL (0.27-4.20)
--- NOTE | 2024-12-21 14:13 | XR_ITS ---
WS: [id number] Portable AP semiupright chest, 12/21/2024,1418 hours Clinical Data: NG placement Comparison: Portable chest, 12/21/2024, 0436 hours Findings: The endotracheal tube, nasogastric gastric tube and right internal jugular venous catheter remain in good position. The heart is enlarged. There is probably a small left pleural effusion. The aortic arch shows minimal calcification and tortuosity. No pneumothorax is seen. There is no definite pneumonia. Monitor leads are on the chest wall. There our cholecystectomy clips in the right upper quadrant. XR/XR chest 1V portable [id number] Impression: 1. No change in position of multiple tubes. 2. Cardiomegaly, atherosclerosis and left pleural effusion.
[2024-12-21] MEDS: meropenem 1,000 mg SDV 1000 MG IVP (14:20)
[2024-12-21 15:01] LABS: Bilirubin Urine Negative (Negative); Blood Urine 3+ (Negative); Glucose Urine UA Negative (Normal); Ketones Urine Negative (Negative); Leukocyte Esterase Urine Trace (Negative); Nitrate Urine Negative (Negative); Protein Urine 2+ (Negative); Specific Gravity, Urine 1.015 (1.005-1.030); Urine Appearance Turbid (CLEAR); Urine Color Yellow (Yellow); Urobilinogen Urine 0.2 mg/dL (Negative)
[2024-12-21 15:04] LABS: Add Urine Microscopic? YES; Bacteria Urine None Seen /hpf; Hyaline Casts Urine 7.01 /lpf; RBC Urine 51-100 /hpf (0-2); WBC Urine 0-5 /hpf (0-5)
[2024-12-21 15:26] LABS: UA Slide Review UA Slide Review Perf
[2024-12-21 15:28] LABS: Amorphous Sediment Urine 2+ /hpf; Other Casts Urine BROAD GRANULAR 15 /lpf
[2024-12-21 15:29] LABS: Add Urine Culture? Yes
--- NOTE | 2024-12-21 19:19 | PC.NURSE ---
Tube Feed: Jevity 1.5
[2024-12-22] VITALS (38 sets, daily range): BP systolic 121–167; BP diastolic 48–75; PULSE 54–77; RESP 15–26; TEMP 36.3–37.6; O2SAT 93–99
[2024-12-22] MEDS: ipratropium-albuterol 3 mL Neb INHALATION ×2 (01:56→08:31)
[2024-12-22] MEDS: meropenem 1,000 mg SDV 1000 MG IVP (03:29)
[2024-12-22] MEDS: chlorhexidine gluconate 4% Btl 118 mL 1 APPLIC TOPICAL (03:30)
[2024-12-22 04:20] LABS: Basophils # 0.1 10^3/uL (0.0-0.1); Basophils % 0.4 %; Eosinophils # 0.2 10^3/uL (0.0-0.8); Eosinophils % 0.7 %; Hematocrit 25.8 % (36-47); Lymphocytes # 1.2 10^3/uL (0.8-4.8); Lymphocytes % 5.7 %; Mean Corpuscular Hemoglobin 27.7 pg (27-33); Mean Corpuscular Volume 89.3 fl (85-98); Mean Platelet Volume 10.8 fL (7.4-10.4); Monocytes # 1.4 10^3/uL (0.2-0.9); Monocytes % 6.4 %; Neutrophils # 14.65 10^3/uL (1.8-7.7); Neutrophils % 67.3 %; Nucleated Red Blood Cells # 0.1 /100WBC; Nucleated Red Blood Cells % 0.4 %; Platelet Count 116 10^3/cmm (157-399); Red Blood Count 2.89 10^6/uL (3.85-5.65); Red Cell Distribution Width 19.6 % (12.1-15.1); White Blood Count 21.77 10^3/uL (3.29-11.43)
[2024-12-22 04:37] LABS: Alanine Aminotransferase 222 U/L (0-33); Albumin Level 2.8 g/dL (3.5-5.2); Alkaline Phosphatase 102 U/L (35-105); Anion Gap 20.6 (5-19); Aspartate Amino Transferase 117 U/L (0-32); Calcium 8.3 mg/dL (8.5-10.5); Carbon Dioxide 24 mmol/L (22-29); Chloride 100 mmol/L (98-107); Creatinine Clr Calc Pharmacy 15.2244; Glucose 145 mg/dL (65-115); Magnesium 2.5 mg/dL (1.7-2.3); Osmolality Calculated 317 mOsm/kg (285-295); Potassium 4.6 mmol/L (3.5-5.1); Sodium 140 mmol/L (136-145); Total Bilirubin 1.8 mg/dL (0.15-1.2); Total Protein 5.8 g/dL (6.6-8.7)
[2024-12-22 04:44] LABS: Blood Urea Nitrogen 82 mg/dL (8-23)
[2024-12-22 05:18] LABS: Slide Review Slide Review Perform
[2024-12-22 05:28] LABS: ABG PCO2 34.8 mmHg (35-45); ABG PH Result 7.45 (7.35-7.45); Alveolar-Arterial Oxygen Gradi 9.4 mmHg (5-10); Arterial Blood Gas Hematocrit 24.8 % (37-47); Base Excess ABG 0.5 mmol/L (-2.0-2.0); Blood Gas Operator Identificat JDB; Blood Gas Sample Site Brachial, right; Blood Gas Sample Type Arterial; Carboxyhemoglobin 2.3 %THgb (0.4-20.1); HCO3 ABG 24.3 mmol/L (22-26); HGB O2 Sat 93.8 % (95-100); Ionized Calcium Level - ABG 1.1 mmol/L (1.1-1.4); Methemoglobin 1.5 % (0.4-1.5); Oxygen Device VENT; Oxygen Saturation ABG 97.5; PO2 ABG 82.1 mmHg (80.0-100.0); PO2 FiO2 Ratio Arterial Blood 293; Potassium Level - ABG 4.3 mmol/L (3.5-5.0); Total Hemoglobin 8.1 g/dL (12-16)
[2024-12-22 05:29] LABS: Blood Gas Tidal Volume 0.45
--- NOTE | 2024-12-22 06:00 | XRR_ITS ---
PROCEDURE INFORMATION: Exam: XR Chest Exam date and time: 12/22/2024 4:41 AM Age: 79 years old Clinical indication: Shortness of breath; Additional info: Resp failure, intubated TECHNIQUE: Imaging protocol: Radiologic exam of the chest. Views: 1 view. COMPARISON: CR XR chest 1V portable [id number] 12/21/2024 2:18 PM FINDINGS: Lungs: Stable opacity at the left lung base. Pleural spaces: Unremarkable. No pleural effusion. No pneumothorax. Heart/Mediastinum: See Vasculature finding. Vasculature: Unchanged borderline cardiomegaly with uncoiling of the thoracic aorta. Bones/joints: Unremarkable. Other findings: Stable life-support lines. XR/XR chest 1V portable [id number] IMPRESSION: No significant change.
[2024-12-22] MEDS: pantoprazole 40 mg SDV IVP (06:24)
[2024-12-22] MEDS: FUROsemide 10 mg/mL SDV 10mL 60 MG IVP (07:53)
--- NOTE | 2024-12-22 08:05 | PM.PN ---
Subjective Subjective: not interactive, intubated. Medications: Reviewed: Yes Medication Review Details: Current Medications Acetaminophen (Acetaminophen 325 Mg Tablet) 650 mg PO Q6H PRN PRN Reason: Mild/Mod Pain Or Temp >/= 101 Albuterol/Ipratropium (Ipratropium-Albuterol 3 Ml Neb) 3 ml INHALATION Q6H.RESP [facility] Last Admin: 12/22/24 01:56 Dose: 3 ml Albuterol/Ipratropium (Ipratropium-Albuterol 3 Ml Neb) 3 ml INHALATION Q4H PRN PRN Reason: SHORTNESS OF BREATH Chlorhexidine Gluconate (Chlorhexidine Gluconate 4% Btl 118 Ml) 1 applic TOPICAL BEDTIME [facility] Last Admin: 12/22/24 03:30 Dose: 1 applic Norepinephrine Bitartrate (Levophed) 4 mg in 250 mls @ 0 mls/hr IV .Q0M RAPHAEL; Protocol Last Titration: 12/21/24 19:00 Dose: Infused Sodium Chloride (Sodium Chloride 0.9%) 1,000 mls @ 0 mls/hr IV .Q0M PRN PRN Reason: hypotension or symptomatic Sodium Chloride (Sodium Chloride 0.9%) 1,000 mls @ 0 mls/hr IV .Q0M PRN PRN Reason: hypotension or symptomatic Fluconazole (Diflucan Premix) 200 mg in 100 mls @ 100 mls/hr IV Q24H [facility] Last Infusion: 12/21/24 14:15 Dose: Infused Sodium Chloride (Sodium Chloride 0.9%) 1,000 mls @ 0 mls/hr IV .Q0M PRN PRN Reason: hypotension or symptomatic Albumin Human (Albumin) 12.5 gm in 50 mls @ 60 mls/hr IV PRN PRN PRN Reason: Hypotension and/or symptomatic Lanolin (Lanolin Oint 7 Gm) 1 applic TOPICAL PRN PRN PRN Reason: DRYNESS Last Admin: 12/16/24 08:27 Dose: 1 applic Meropenem (Meropenem 1,000 Mg Sdv) 1,000 mg IVP Q12H [facility]; Protocol Last Admin: 12/22/24 03:29 Dose: 1,000 mg Multi-Ingredient Ointment (Eucerin Cream 113 Gm Jar) 1 applic TOPICAL PRN PRN PRN Reason: DRYNESS Naloxone HCl (Naloxone 0.4 Mg/Ml Sdv) 0.1 mg IVP Q2M PRN PRN Reason: OPIATERV Ondansetron HCl (Ondansetron 2 Mg/Ml Sdv 2 Ml) 4 mg IVP Q6H PRN PRN Reason: vomiting, or N/V if npo Pantoprazole Sodium (Pantoprazole 40 Mg Sdv) 40 mg IVP ACBREAKFAST [facility] Last Admin: 12/22/24 06:24 Dose: 40 mg Senna (Sennosides 8.6 Mg Tablet) 17.2 mg PO DAILY [facility] Last Admin: 12/21/24 09:07 Dose: 17.2 mg Vitals/I&O/Wt Last Vital Signs Temp 99.4 F 12/22/24 03:44 Pulse 58 L 12/22/24 06:30 Resp 15 12/22/24 06:30 BP 137/48 12/22/24 06:30 Pulse Ox 98 12/22/24 06:30 O2 Del Method Mechanical Ventilation 12/22/24 06:30 O2 Flow Rate 2 12/15/24 04:30 FiO2 28 12/22/24 06:30 12/21/24 12/22/24 12/22/24 22:59 06:59 14:59 Intake Total 50 / 150 689 / 839 Output Total 125 / 125 275 / 400 Balance - 414 / 439 Weight last 48 hrs Weight 95.799 kg Weight 96.5 kg Weight 97.5 kg Physical Exam Narrative: intubated, vent tv 450, fio2=28% peep 5 heent- nc/at neck supple lungs clear heart reg + s1, s2 abd soft, nt, nd+ bs ext no edema right neck HD catheter neuro not responding Urinary Catheter Management: Gregory: Cath Placed During This Visit: yes Reason for Continuing Indwelling Catheter: Accurate Measurement of Urinary Output in Critically Ill Patients Urinary Catheter Date of Insertion: 12/14/24 Urinary Catheter Time of Insertion: 22:45 Data 12/22/24 03:49 12/22/24 03:49 Micro: Microbiology 12/17/24 14:05 Gram Stain - Final Sputum - Endotracheal Tube Aspirate Sputum Culture - Final Magaly tropicalis A&P Assessment and plan (1) SRINI (acute kidney injury): 79 yr old female w/ SRINI due to presumed ATN -she has had dialysis 3 times- with no MS improvement. will dialyze again today however, would recommend a goals of care conversation and consider making comfort care - send serologues anemia- epo and check iron studies vent per critical care/ medicine team Plan see above PDMP PDMP Reviewed: Not Reviewed Attestations Medical Necessity Statement*: VDRF, SRINI on HD, comatose Time Spent in Patient Care: 16 - 35 minutes (>than 50% of time spent in counselling and/or direct pt care on unit). Coding Level of Care Code Acute Code for Chg Fwd Diagnoses SRINI (acute kidney injury) N17.9
[2024-12-22] MEDS: sennosides 8.6 mg Tablet 17.2 MG PO (08:33)
[2024-12-22] MEDS: EPOETIN ALFA-EPBX 10,000 UNIT/ML SDV (ESRD) 10000 UNIT SUBCUT (08:33)
[2024-12-22 09:39] LABS: Complement C3 104 mg/dL (90-180)
[2024-12-22 10:00] LABS: Calcium 8.3 mg/dL (8.5-10.5)
[2024-12-22 10:04] LABS: Ferritin 425 ng/mL (15-150)
[2024-12-22 10:07] LABS: Parathyroid Hormone 250.3 pg/mL (15-65)
[2024-12-22] MEDS: alteplase 1 mg/mL SDV 2 mL 2 MG INTRACATH ×2 (10:19→10:20)
--- NOTE | 2024-12-22 11:56 | P.TS_ITS ---
Transfer Summary Providers Date of Admission: 12/11/24 22:05 Date of Discharge/Transfer: 12/22/24 Attending Provider at Admission: Cally Hardy MD Attending Provider at Transfer: Marco Bender MD Consults: Surgery Dr. Monty Mejia nephrology Neurology: Dr. Linton Primary Care Provider: Awa Frederick MD Transfer Plans: Anticipated date of transfer: 12/22/24 . Receiving Facility: [facility] . Receiving Provider: Dr. Mistry . Diagnoses at Discharge Discharge Diagnosis (1) SRINI (acute kidney injury): Status: Acute (2) Hemorrhagic shock: Status: Acute (3) Nonsustained ventricular tachycardia: Status: Acute (4) Bradycardia: Status: Chronic Permanent problem details: sees cardio Mtn. HOme (5) Atrial fibrillation with RVR: Status: Acute (6) Demand ischemia: Status: Acute (7) Hypertension: Status: Chronic Qualifiers: Hypertension type: primary hypertension Qualified Code(s): I10 - Essential (primary) hypertension (8) Pulmonary hypertension: Status: Acute (9) Ischemia reperfusion injury of liver: Status: Acute (10) Rectus sheath hematoma: Status: Acute (11) Nontraumatic retroperitoneal hematoma: Status: Acute (12) Encephalopathy acute: Status: Acute (13) Metabolic encephalopathy: Status: Acute (14) Ventilator dependent: Status: Acute (15) Acute respiratory failure: Status: Acute Reason for Visit Reason for Visit sob Brief History: History as per HPI: Lelia Mcguire is a 79 yo woman w/ CAD, chronic Afib, Pulmonary artery hypertension, chronic CHF, Asthma, ELBA not on CPAP because it was recalled, hx of R. lower extremity DVT, HTN who presents to the ED on 12/11/2024 w/ complaints 2 whalen of productive cough of yellow sputum. The patient states that she started experiencing the productive cough, then she would experience L. sided chest pain while coughing, and then a headache. The chest pain was non- pleuritic, non-positional. She states that anytime that she gets a chest pain, she gets it at the back of her neck. The patient felt weak, fatigued. The cough progressed to the point that she decided to call EMS. When she tried to get out of her recliner, she slid to the floor and had to crawl to open the door for EMS. 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 The patient endorsed SOB, wheezing, palpitations although she typically has palpitations w/ Afib. Her vital signs were significant for tachycardia of 104, and respiratory rate of 20. She required 3L O2 Her labs showed no leukocytosis, and that showed an unremarkable BMP. Her EKG showed A-fib with PVCs, no ST changes, and a QTc of 410. Her CXR showed no acute cardiopulmonary disease, but the left lung base was suboptimally evaluated due to the overlying dense heart and soft tissue. A CT was then obtained and it showed no abnormalities. Her COVID-19/influenza A&B/RSV PCR swabs were negative. She was given Tessalon Perles, doxycycline 100 mg x 1, Solu-Medrol 125 mg IVP x 1. Hospital Course Hospital Course Patient was admitted to the hospital further evaluation and management of acute on chronic hypoxic respiratory failure in setting of COPD exacerbation and pneumonia. She was started on treatment with steroids, broad-spectrum antibiotics. Patient was responding well to the treatment and was improving. Her hospitalization was complicated by her developing hemorrhagic shock on 12/14 for which she required overall 3 units of PRBC, 2 units FFP, 1 unit of platelet along with 2 pressors. Patient was intubated on 12/15. Patient had first required high doses of sedating medications to be compliant with mechanical ventilator. She developed multiorgan dysfunction with renal failure and ischemic injury to the liver. Currently she is getting as needed hemodialysis. She has received 4 sessions of hemodialysis overall with last session on 12/22. Hemodialysis catheter was last changed on 12/22. Patient otherwise has responded well and has been on vasopressors, on minimal ventilator settings but neurologically has had poor response. Currently she is improving very gradually and today she is gagging and opening her eyes minimally to verbal and physical stimulus. Her hemoglobin has remained stable. Repeat CT abdomen pelvis was done which showed stable hematoma without increase in size. Multiple etiologies for encephalopathy including subclinical seizures, stroke, electrolyte abnormalities, hyperammonemia has been ruled out. It is believed that her poor mentation could be due to oversedation which is still lingering on due to poor metabolic symptom from liver injury and she could improve neurologically slowly within next 1 week. She has been continued on tube feeds which she is tolerating well. Multiple goals of care discussions were done in detail with patient's DPOA/daughter at bedside. Patient is currently DNR/DNI. Patient going forward would need aggressive weaning of ventilator once her neurological status improves, respiratory and physical therapy. Possible transfer to LTAC was discussed in detail with the patient's daughter and she was agreeable. She has been transferred in hemodynamically stable condition to LTAC. On phone Doc signout was done on 12/22. Physical Exam Narrative: General: Intubated, not sedated, somnolent, GCS: E2 M1 VT, opening eyes on physical stimulus HEENT: PERRLA, pupils bilaterally equal and reactive Chest: Normal vesicular breath sounds, no added sounds, equal good air entry bilaterally CVS: S1-S2 regular, no murmurs, no tachycardia, no gallops, no rubs Abdomen: Soft, nontender, no organomegaly, bowel sounds present Neuro: No focal deficits, no facial deformity, Extremity: Bilateral 1+ pedal and edema up to mid thigh Urinary Catheter Management: Gregory: Cath Placed During This Visit: yes Reason for Continuing Indwelling Catheter: Accurate Measurement of Urinary Output in Critically Ill Patients Urinary Catheter Date of Insertion: 12/14/24 Urinary Catheter Time of Insertion: 22:45 TS Data Studies Completed and Pending Pending at discharge Category Date Time Status SHELBY Screen w/ Reflex Routine Lab 12/22/24 09:09 Received ANCA [Anti-Neutrophil Cytoplasmic AB] Routine Lab 12/22/24 09:09 Received Anti Double Stranded DNA AB Routine Lab 12/22/24 09:09 Received Blood Culture Stat Lab 12/19/24 16:20 Results Complete Blood Count w/Auto AM LABS Lab 12/23/24 04:00 Ordered Complete Blood Count w/Auto AM LABS Lab 12/24/24 04:00 Ordered Complete Blood Count w/Auto AM LABS Lab 12/25/24 04:00 Ordered Comprehensive Metabolic Panel AM LABS Lab 12/23/24 04:00 Ordered Comprehensive Metabolic Panel AM LABS Lab 12/24/24 04:00 Ordered Comprehensive Metabolic Panel AM LABS Lab 12/25/24 04:00 Ordered Glomerular Basement AB IGG Routine Lab 12/22/24 09:09 Received Magnesium AM LABS Lab 12/23/24 04:00 Ordered Magnesium AM LABS Lab 12/24/24 04:00 Ordered Magnesium AM LABS Lab 12/25/24 04:00 Ordered Phosphorus AM LABS Lab 12/23/24 04:00 Ordered Phosphorus AM LABS Lab 12/24/24 04:00 Ordered Phosphorus AM LABS Lab 12/25/24 04:00 Ordered Urine Culture Routine Lab 12/21/24 14:30 Received Completed Studies During Hospitalization Category Date Time Status CT abdomen pelvis wo con [id number] Routine Cat Scan 12/20/24 10:[address] [place] [id number] Stat Cat Scan 12/15/24 00:[address] chest wo con [id number] Stat Cat Scan 12/11/24 22:[address] head wo con* [id number] Routine Cat Scan 12/19/24 11:46 Completed CXRP [XR chest 1V portable [id number]] Stat Exams 12/18/24 17:45 Completed XR abdomen 1V* [id number] Routine Exams 12/20/24 13:12 Completed XR chest 1V portable [id number] QAM Exams 12/20/24 06:00 Completed XR chest 1V portable [id number] QAM Exams 12/21/24 06:00 Completed XR chest 1V portable [id number] QAM Exams 12/22/24 06:00 Completed XR chest 1V portable [id number] Routine Exams 12/15/24 10:11 Completed XR chest 1V portable [id number] Routine Exams 12/21/24 14:13 Completed XR chest 1V portable [id number] Stat Exams 12/11/24 17:08 Completed XR chest 1V portable [id number] Stat Exams 12/15/24 09:33 Completed XR chest 1V portable [id number] Stat Exams 12/16/24 20:20 Completed XR pelvis 1-2V* [id number] Stat Exams 12/14/24 23:45 Completed CV. echo complete* [id number] Routine Ultrasound 12/12/24 14:53 Completed CV. echo limited [id number] Stat Ultrasound 12/15/24 08:19 Completed Laboratory Last Values WBC 21.77 10^3/uL (3.29-11.43) H 12/22/24 03:49 RBC 2.89 10^6/uL (3.85-5.65) L 12/22/24 03:49 Hgb 8.00 g/dL (11.27-16.99) L 12/22/24 03:49 Hct 25.8 % (36-47) L 12/22/24 03:49 MCV 89.3 fl (85-98) 12/22/24 03:49 MCH 27.7 pg (27-33) 12/22/24 03:49 MCHC 31.0 g/dL (30-55) 12/22/24 03:49 RDW 19.6 % (12.1-15.1) H 12/22/24 03:49 Plt Count 116 10^3/cmm (157-399) L 12/22/24 03:49 MPV 10.8 fL (7.4-10.4) H 12/22/24 03:49 Neut % (Auto) 67.3 % 12/22/24 03:49 Lymph % (Auto) 5.7 % 12/22/24 03:49 [place] % (Auto) 6.4 % 12/22/24 03:49 Eos % (Auto) 0.7 % 12/22/24 03:49 Baso % (Auto) 0.4 % 12/22/24 03:49 Neut # (Auto) 14.65 10^3/uL (1.8-7.7) H 12/22/24 03:49 Lymph # (Auto) 1.2 10^3/uL (0.8-4.8) 12/22/24 03:49 [place] # (Auto) 1.4 10^3/uL (0.2-0.9) H 12/22/24 03:49 Eos # (Auto) 0.2 10^3/uL (0.0-0.8) 12/22/24 03:49 Baso # (Auto) 0.1 10^3/uL (0.0-0.1) 12/22/24 03:49 Nucleated RBC % (auto) 0.4 % 12/22/24 03:49 Total Counted 100 (0-100) 12/20/24 04:01 Atypical Lymphs % 1.0 % (0-5) 12/20/24 04:01 Absolute Neutrophils 22.6 10^3/cmm (1.4-6.5) H 12/20/24 04:01 Segmented Neutrophils 72 % 12/20/24 04:01 Band Neutrophils 11.0 % 12/20/24 04:01 Absolute Lymphocytes 2.2 10^3/cmm (1.2-3.4) 12/20/24 04:01 Lymphocytes (Manual) 7 % 12/20/24 04:01 Monocytes (Manual) 2.0 % 12/20/24 04:01 Absolute Monocytes 0.5 10^3/cmm (0.1-0.6) 12/20/24 04:01 Eosinophils (Manual) 1 % 12/20/24 04:01 Absolute Eosinophils 0.3 10^3/cmm (0.0-0.7) 12/20/24 04:01 Basophils (Manual) 0.0 % 12/20/24 04:01 Absolute Basophils 0.0 10^3/cmm (0.0-0.2) 12/20/24 04:01 Metamyelocytes 1.0 % 12/20/24 04:01 Myelocytes 3.0 % 12/20/24 04:01 Promyelocytes 2.0 % 12/20/24 04:01 Nucleated RBCs 2.0 /100WBC (0-1) H 12/19/24 06:07 Nucleated RBCs # 0.1 /100WBC 12/22/24 03:49 Platelet Estimate Decreased (Normal) L 12/20/24 04:01 Polychromasia Trace 12/15/24 23:12 Hypochromasia 1+ H 12/17/24 04:30 Anisocytosis Trace 12/19/24 06:07 Peripher Smr Path Cons Sent for review 12/21/24 04:33 PT 18.70 SECONDS (12.1-14.9) H 12/16/24 13:00 INR 1.46 (0.8-1.2) H 12/16/24 13:00 APTT 39.4 SECONDS (23.9-36.7) H 12/16/24 13:00 Specimen Type Arterial 12/22/24 04:50 Sample Site Brachial, right 12/22/24 04:50 ABG pH 7.45 (7.35-7.45) 12/22/24 04:50 ABG pCO2 34.8 mmHg (35-45) L 12/22/24 04:50 ABG pO2 82.1 mmHg (80.0-100.0) 12/22/24 04:50 ABG PO2/FiO2 Ratio 293 12/22/24 04:50 ABG HCO3 24.3 mmol/L (22-26) 12/22/24 04:50 ABG O2 Saturation 97.5 12/22/24 04:50 ABG Base Excess 0.5 mmol/L (-2.0-2.0) 12/22/24 04:50 Ld Test N/a 12/22/24 04:50 VBG pH 7.27 (7.32-7.42) L 12/15/24 15:00 VBG pCO2 41.3 mmHg (41-51) 12/15/24 15:00 VBG pO2 35.6 mmHg (25-40) 12/15/24 15:00 VBG HCO3 19.1 mmol/L (24-28) L 12/15/24 15:00 VBG Base Excess -7.4 mmol/L (-3.0-3.0) L 12/15/24 15:00 VBG Hematocrit 40.0 % (37-47) 12/15/24 15:00 A-a O2 Gradient 9.4 mmHg (5-10) 12/22/24 04:50 Hematocrit 24.8 % (37-47) L 12/22/24 04:50 Hgb O2 Saturation 93.8 % (95-100) L 12/22/24 04:50 Carboxyhemoglobin 2.3 %THgb (0.4-20.1) 12/22/24 04:50 Methemoglobin 1.5 % (0.4-1.5) 12/22/24 04:50 Total Hemoglobin 8.1 g/dL (12-16) L 12/22/24 04:50 Sodium 139.0 mmol/L (131-143) 12/22/24 04:50 Potassium 4.3 mmol/L (3.5-5.0) 12/22/24 04:50 Glucose 133.0 mg/dL (70-115) H 12/22/24 04:50 Ionized Calcium 1.1 mmol/L (1.1-1.4) 12/22/24 04:50 O2 Delivery Device Vent 12/22/24 04:50 FiO2 28.0 % 12/22/24 04:50 Tidal Volume 0.45 12/22/24 04:50 PEEP 5.0 cmH20 12/22/24 04:50 Pacs Specialist ID [id number] 12/22/24 04:50 Sodium 140 mmol/L (136-145) 12/22/24 03:49 Potassium 4.6 mmol/L (3.5-5.1) 12/22/24 03:49 Chloride 100 mmol/L (98-107) 12/22/24 03:49 Carbon Dioxide 24 mmol/L (22-29) 12/22/24 03:49 Anion Gap 20.6 (5-19) H 12/22/24 03:49 BUN 82 mg/dL (8-23) H* D 12/22/24 03:49 Creatinine 3.5 mg/dL (0.5-0.9) H 12/22/24 03:49 GFR Calculation Not Reportable 12/22/24 03:49 Glucose 145 mg/dL (65-115) H 12/22/24 03:49 POC Glucose 127 mg/dL (70-110) H 12/17/24 21:00 Estimat Average Glucose 123 12/19/24 06:07 Hemoglobin A1c 5.9 % (4.0-6.0) 12/19/24 06:07 Calculated Osmolality 317 mOsm/kg (285-295) H 12/22/24 03:49 Lactic Acid 1.2 mmol/L (0.5-2.2) 12/20/24 12:10 Lactic Acid (Sepsis) 2.0 mmol/L (0.5-2.2) 12/16/24 18:30 Lactate 3.1 mmol/L (0.5-2.2) H 12/16/24 05:17 Calcium 8.3 mg/dL (8.5-10.5) L 12/22/24 03:49 Phosphorus 5.7 mg/dL (2.5-4.5) H 12/19/24 06:07 Magnesium 2.5 mg/dL (1.7-2.3) H 12/22/24 03:49 Iron 66 ug/dL (37-145) 12/19/24 06:07 TIBC 188 mcg/dl 12/19/24 06:07 % Saturation 35.1 % (20-50) 12/19/24 06:07 Unsat Iron Binding 122 ug/dL (112-347) 12/19/24 06:07 Ferritin 425 ng/mL (15-150) H 12/22/24 09:09 Total Bilirubin 1.8 mg/dL (0.15-1.2) H 12/22/24 03:49 AST 117 U/L (0-32) H 12/22/24 03:49 ALT 222 U/L (0-33) H 12/22/24 03:49 Alkaline Phosphatase 102 U/L (35-105) 12/22/24 03:49 Ammonia 33 umol/L (11-51) 12/19/24 16:17 Troponin T Baseline 309 ng/L (0-10) H* 12/15/24 08:40 Troponin T 120 Minute 236.7 ng/L (0-10) H 12/15/24 11:11 Delta Troponin T -72.3 ABS# (0-10) L 12/15/24 11:11 Troponin T Hi Sens 6Hr 293.8 ng/L (0-10) H 12/15/24 15:00 Troponin T Hi Sens 6Hr Delta -15.2 ng/L (0-12) L 12/15/24 15:00 NT-Pro-B Natriuret Pep 1791 pg/mL (0-450) H 12/14/24 22:19 Total Protein 5.8 g/dL (6.6-8.7) L 12/22/24 03:49 Albumin 2.8 g/dL (3.5-5.2) L 12/22/24 03:49 Globulin 3.0 g/dL (1.3-4.6) 12/22/24 03:49 Triglycerides 90 mg/dL (0-150) 12/20/24 04:01 Cholesterol 74 mg/dL (0-200) 12/20/24 04:01 LDL Cholesterol, Calc 31 mg/dL (50-129) L 12/20/24 04:01 Total VLDL Cholesterol 18 mg/dL (0-30) 12/20/24 04:01 HDL Cholesterol 25 mg/dL (60-100) L 12/20/24 04:01 Cholesterol/HDL Ratio 2.96 mg/dL (0.0-4.40) 12/20/24 04:01 Vitamin B12 > 2000 pg/mL (232-1245) H 12/19/24 06:07 Folate 6.7 ng/mL (4.8-37.3) 12/20/24 04:01 Procalcitonin 3.73 ng/mL (0-0.5) H 12/21/24 04:33 TSH 4.26 uIU/mL (0.27-4.20) H 12/21/24 04:33 Free T4 0.89 ng/dL (0.82-1.77) 12/21/24 04:33 PTH Intact 250.3 pg/mL (15-65) H 12/22/24 09:09 Calcium (PTH Intact) 8.3 mg/dL (8.5-10.5) L 12/22/24 09:09 Urine Color Yellow (Yellow) 12/21/24 14:30 Urine Appearance Turbid (CLEAR) A 12/21/24 14:30 Urine pH 5.0 (5-7) 12/21/24 14:30 Ur Specific [place] 1.015 (1.005-1.030) 12/21/24 14:30 Urine Protein 2+ (Negative) A 12/21/24 14: Urine Glucose (UA) Negative (Normal) 12/21/24 14: Urine Ketones Negative (Negative) 12/21/24 14:30 Urine Blood 3+ (Negative) A 12/21/24 14:30 Urine Nitrate Negative (Negative) 12/21/24 14:30 Urine Bilirubin Negative (Negative) 12/21/24 14:30 Urine Urobilinogen 0.2 mg/dL (Negative) 12/21/24 14:30 Ur Leukocyte Esterase Trace (Negative) A 12/21/24 14:30 Urine RBC 51-100 /hpf (0-2) H 12/21/24 14:30 Urine WBC 0-5 /hpf (0-5) 12/21/24 14:30 Ur Squamous Epith Cells 6-10 /hpf (0-5) 12/21/24 14:30 Uric Acid Crystals 10-15 /hpf H 12/21/24 14:30 Amorphous Sediment 2+ /hpf 12/21/24 14:30 Urine Bacteria None seen /hpf (NONE) 12/21/24 14:30 Hyaline Casts 7.01 /lpf 12/21/24 14:30 Other Casts Broad granular 15 /lpf 12/21/24 14:30 Nasal MRSA (PCR) Not detected (Not Detecte) 12/19/24 13:23 Vancomycin Trough 9.6 ug/mL (10-15) L 12/19/24 16:17 Random Vancomycin 10.4 ug/mL (20.0-40.0) L 12/20/24 04:01 Complement C3 104 mg/dL (90-180) 12/22/24 09:09 Complement C4 21 mg/dL (10-40) 12/22/24 09:09 Coronavirus (PCR) Negative (Negative) 12/11/24 17:40 Hep Bs Antigen Non-reactive (Nonreactive) 12/18/24 19:43 Hep Bs Antibody < 3.5 (11.5-1000) L 12/18/24 19:43 Influenza A (PCR) Negative (Negative) 12/11/24 17:40 Influenza Type B (PCR) Negative (Negative) 12/11/24 17:40 RSV (PCR) Negative (Negative) 12/11/24 17:40 Blood Type O Negative 12/15/24 09:13 Rho(D) Type Rh negative 12/15/24 09:13 Antibody Screen Negative 12/15/24 09:13 Crossmatch See Detail 12/15/24 09:[address] 12/11/24 22:39 IMPRESSION: 1. No acute cardiopulmonary disease. 2. Moderate to marked cardiomegaly. 3. Ectasia of the ascending thoracic aorta measuring up to 4.3 cm. Pelvis X-Ray 12/14/24 23:45 IMPRESSION: human factors specialist as above. Chest/Abdomen/Pelvis CT 12/15/24 00:10 IMPRESSION: 1. Aneurysmal dilatation of the ascending aorta maximal diameter of 5.2 cm. 2. Minimal bronchial wall thickening. No focal consolidation. 3. 2 mm nodule right lower lobe. Fleischner Society guidelines for pulmonary nodule follow up Low risk patients IMPRESSION: 1. Large right retroperitoneal hematoma posterior to the right kidney extending from the diaphragmatic region inferiorly to the right pelvis measuring approximately 12 cm transversely, 11 cm in the anterior-posterior dimension and approximately 20-25 cm in the craniocaudal dimension. This extends inferiorly about the equalizer operator internus muscle/right pelvis. Diameter is most pronounced in the lower abdomen/pelvic region. Mass effect upon the urinary bladder. Hematoma within the rectus muscles left greater than right that on the right measuring approximately 3 cm in the anterior-posterior dimension and approximately 10 cm transversely. Small on the left. 2. Periumbilical ventral hernia. Small. 3. No renal calcifications, hydronephrosis, or hydroureter. 4. Heavily calcified fibroid uterus. 5. Severe degenerative changes right greater than left hip. No pelvic fracture. 6. Compression fracture anterior and middle columns of T12. Likely chronic. No paravertebral edema. COMMENTS: Consistent with the [employer]'s Incidental Findings Committee white paper (J Am Yareli Radiol 2018): Any incidental renal lesion less than 1 cm or classified as too small to characterize, or any incidental cystic renal lesion characterized as simple-appearing, is likely benign. No follow-up imaging is recommended for these lesions per consensus recommendations based on imaging criteria. ADDENDUM: 12/15/24 0917 The above was read and discussed at approximately 9:14 AM ENROLLMENT ELIGIBILITY REPRESENTATIVE 12/15/2024 with the attending physician , Dr. Tristan. Head CT 12/19/24 11:46 IMPRESSION: 1. No acute intracranial hemorrhage or edema. 2. Moderate symmetric cerebral and cerebellar atrophy with advanced small vessel disease. Mild progression of small vessel disease since 2021. 3. Small air-fluid levels in the sphenoid sinuses. Abdomen/Pelvis CT 12/20/24 10:57 IMPRESSION: 1. Large right retroperitoneal hematoma extending to and involving the right pelvis is similar in appearance to prior exam 5 days ago, without significant overall increase in size. Continued findings of mass effect from hematoma within the right pelvis. 2. Interval development of extensive superficial and deep subcutaneous soft tissue density bilaterally, likely component of soft tissue hematoma and edema. 3. Periumbilical ventral hernia just to the left of midline contains fat and a nondilated small bowel segment with today's exam. 4. Small ioveq-sibdmpk-xqaq-left basilar effusions with subjacent basilar atelectasis. 5. OG tube with tip in the mid stomach region. Right femoral central venous catheter with tip in the right external iliac vein. 6. Gregory catheter within a nondistended urinary bladder. 7. Other nonacute findings as noted above. COMMENTS: Consistent with the [employer]'s Incidental Findings Committee white paper (J Am Yareli Radiol 2018): Any incidental renal lesion less than 1 cm or classified as too small to characterize, or any incidental cystic renal lesion characterized as simple-appearing, is likely benign. No follow-up imaging is recommended for these lesions per consensus recommendations based on imaging criteria. Abdomen X-Ray 12/20/24 13:12 IMPRESSION: 1. Presence of NG/OG tube at the mid gastric level. Presence of right femoral line, likely venous, lower right pelvis. 2. Nonspecific nonobstructive bowel gas pattern. [id number] air in the stomach. Chest X-Ray 12/22/24 06:00 IMPRESSION: No significant change. Echocardiogram: CONCLUSIONS Normal left ventricular size, systolic function and wall thickness, with no regional wall motion abnormalities. Left ventricular ejection fraction is estimated at 60 %. Grade II/IV diastolic dysfunction, moderately elevated filling pressures. Moderately increased left atrial size. Moderately thickened mitral valve. Mild mitral annular calcification. No mitral valve stenosis. Moderate mitral valve regurgitation. Severe aortic valve calcification. Mild aortic valve stenosis, mean gradient 17.8 mmHg, PATRICK 1.4 cm squared. Mild aortic valve regurgitation. There is no pericardial effusion. Right atrial pressure is around 10 mm of mercury. Michelle Morton MD (Electronically Signed) Final Date: 14 December 2024 14:50 Recent Clincial Data Last Vital Signs Temp 99.1 F 12/22/24 09:00 Pulse 55 L 12/22/24 09:00 Resp 18 12/22/24 10:15 BP 128/60 12/22/24 09:00 Pulse Ox 97 12/22/24 10:15 O2 Del Method Mechanical Ventilation 12/22/24 08:30 O2 Flow Rate 2 12/15/24 04:30 FiO2 28 12/22/24 10:15 Vital Signs Temp Pulse Resp BP Pulse Ox O2 Del Method FiO2 12/22/24 10:15 18 97 28 12/22/24 09:00 99.1 F 55 L 17 128/60 12/22/24 08:30 58 L 16 97 Mechanical Ventilation 12/22/24 08:30 16 98 12/22/24 08:00 97.3 F L 57 L 129/52 98 12/22/24 07:30 61 125/52 99 12/22/24 07:00 57 L 125/52 98 12/22/24 06:30 58 L 15 137/48 98 Mechanical Ventilation 12/22/24 06:00 59 L 141/53 98 Mechanical Ventilation 12/22/24 05:30 60 141/53 98 Mechanical Ventilation 12/22/24 05:30 61 12/22/24 05:00 61 141/49 98 Mechanical Ventilation 12/22/24 04:45 16 98 12/22/24 04:30 62 167/59 Mechanical Ventilation 12/22/24 04:00 66 149/55 98 Mechanical Ventilation 12/22/24 03:44 99.4 F 12/22/24 03:30 66 15 165/75 97 Mechanical Ventilation 12/22/24 03:00 70 157/61 97 Mechanical Ventilation 12/22/24 02:30 96 Mechanical Ventilation 12/22/24 02:00 60 128/48 94 Mechanical Ventilation 12/22/24 01:56 62 26 H 95 Mechanical Ventilation 12/22/24 01:30 55 L 94 Mechanical Ventilation 12/22/24 01:00 66 133/50 94 Mechanical Ventilation 12/22/24 00:35 99.6 F 12/22/24 00:30 66 16 159/66 94 Mechanical Ventilation 12/22/24 00:19 17 94 12/22/24 00:00 70 131/59 93 Mechanical Ventilation Intake & Output/Weight 12/20/24 12/21/24 12/22/24 12/23/24 06:59 06:59 06:59 06:59 Intake Total 298.625 / 298.625 848.75 / 848.75 839 / 839 Output Total 150 / 150 1905 / 1905 400 / 400 Balance 148.625 / 148.625 -1056.25 / -1056.25 439 / 439 Weight 99.5 kg 96.5 kg 95.799 kg Vitals Last Vital Signs Temp 99.1 F 12/22/24 09:00 Pulse 55 L 12/22/24 09:00 Resp 18 12/22/24 10:15 BP 128/60 12/22/24 09:00 Pulse Ox 97 12/22/24 10:15 O2 Del Method Mechanical Ventilation 12/22/24 08:30 O2 Flow Rate 2 12/15/24 04:30 FiO2 28 12/22/24 10:15 TS Medications Medications Acetaminophen (Acetaminophen 325 Mg Tablet) 650 mg PO Q6H PRN PRN Reason: Mild/Mod Pain Or Temp >/= 101 Albuterol/Ipratropium (Ipratropium-Albuterol 3 Ml Neb) 3 ml INHALATION Q6H.RESP RAPHAEL Last Admin: 12/22/24 08:31 Dose: 3 ml Albuterol/Ipratropium (Ipratropium-Albuterol 3 Ml Neb) 3 ml INHALATION Q4H PRN PRN Reason: SHORTNESS OF BREATH Chlorhexidine Gluconate (Chlorhexidine Gluconate 4% Btl 118 Ml) 1 applic TOPICAL BEDTIME [facility] Last Admin: 12/22/24 03:30 Dose: 1 applic Norepinephrine Bitartrate (Levophed) 4 mg in 250 mls @ 0 mls/hr IV .Q0M [facility]; Protocol Last Titration: 12/21/24 19:00 Dose: Infused Sodium Chloride (Sodium Chloride 0.9%) 1,000 mls @ 0 mls/hr IV .Q0M PRN PRN Reason: hypotension or symptomatic Sodium Chloride (Sodium Chloride 0.9%) 1,000 mls @ 0 mls/hr IV .Q0M PRN PRN Reason: hypotension or symptomatic Fluconazole (Diflucan Premix) 200 mg in 100 mls @ 100 mls/hr IV Q24H [facility] Last Infusion: 12/21/24 14:15 Dose: Infused Sodium Chloride (Sodium Chloride 0.9%) 1,000 mls @ 0 mls/hr IV .Q0M PRN PRN Reason: hypotension or symptomatic Albumin Human (Albumin) 12.5 gm in 50 mls @ 60 mls/hr IV PRN PRN PRN Reason: Hypotension and/or symptomatic Lanolin (Lanolin Oint 7 Gm) 1 applic TOPICAL PRN PRN PRN Reason: DRYNESS Last Admin: 12/16/24 08:27 Dose: 1 applic Meropenem (Meropenem 1,000 Mg Sdv) 1,000 mg IVP Q12H [facility] [place]; Protocol Last Admin: 12/22/24 03:29 Dose: 1,000 mg Multi-Ingredient Ointment (Eucerin Cream 113 Gm Jar) 1 applic TOPICAL PRN PRN PRN Reason: DRYNESS Naloxone HCl (Naloxone 0.4 Mg/Ml Sdv) 0.1 mg IVP Q2M PRN PRN Reason: OPIATERV Ondansetron HCl (Ondansetron 2 Mg/Ml Sdv 2 Ml) 4 mg IVP Q6H PRN PRN Reason: vomiting, or N/V if npo Pantoprazole Sodium (Pantoprazole 40 Mg Sdv) 40 mg IVP ACBREAKFAST [facility] [place] Last Admin: 12/22/24 06:24 Dose: 40 mg Senna (Sennosides 8.6 Mg Tablet) 17.2 mg PO DAILY [facility] [place] Last Admin: 12/22/24 08:33 Dose: 17.2 mg Discontinued Medications Albuterol/Ipratropium (Ipratropium-Albuterol 3 Ml Neb) 3 ml INHALATION ONCE ONE Stop: 12/11/24 17:09 Last Admin: 12/11/24 17:23 Dose: 3 ml Albuterol/Ipratropium (Ipratropium-Albuterol 3 Ml Neb) 3 ml INHALATION ONCE ONE Stop: 12/11/24 18:18 Last Admin: 12/11/24 19:11 Dose: 3 ml Albuterol/Ipratropium (Ipratropium-Albuterol 3 Ml Neb) 3 ml INHALATION Q4H [facility] Alteplase, Recombinant (Alteplase 1 Mg/Ml Sdv 2 Ml) 2 mg INTRACATH ONCE ONE; Protocol Stop: 12/22/24 10:00 Last Admin: 12/22/24 10:19 Dose: 2 mg Alteplase, Recombinant (Alteplase 1 Mg/Ml Sdv 2 Ml) 2 mg INTRACATH ONCE ONE; Protocol Stop: 12/22/24 10:00 Last Admin: 12/22/24 10:20 Dose: 2 mg Amiodarone HCl (Amiodarone 200 Mg Tablet) 400 mg PO BID [facility] [place] Last Admin: 12/21/24 04:08 Dose: 400 mg Azithromycin (Azithromycin 250 Mg Tablet) 500 mg PO DAILY [facility] [place]; Protocol Last Admin: 12/14/24 08:53 Dose: 500 mg Benzonatate (Benzonatate 100 Mg Capsule) 200 mg PO ONCE ONE Stop: 12/11/24 18:22 Last Admin: 12/11/24 18:51 Dose: 200 mg Benzonatate (Benzonatate 100 Mg Capsule) 100 mg PO ONCE ONE Stop: 12/11/24 18:49 Last Admin: 12/11/24 18:51 Dose: 100 mg Ceftriaxone Sodium (Ceftriaxone 1,000 Mg Sdv) 1,000 mg IVP DAILY [facility] [place]; Protocol Last Admin: 12/12/24 20:52 Dose: Not Given Ceftriaxone Sodium (Ceftriaxone 1,000 Mg Sdv) 1,000 mg IVP DAILY@2300 [facility]; Protocol Last Admin: 12/15/24 00:09 Dose: 1,000 mg Doxycycline Monohydrate (Doxycycline 100 Mg Tablet) 100 mg PO ONCE ONE; Protocol Stop: 12/11/24 19:09 Last Admin: 12/11/24 20:05 Dose: 100 mg Enoxaparin Sodium (Enoxaparin 100 Mg/Ml Syringe) 90 mg 1 mg/kg (90 mg) SUBCUT Q12H [facility] [place] Last Admin: 12/15/24 00:05 Dose: 90 mg Epoetin Holden-epbx (Epoetin Holden-Epbx 10,000 Unit/Ml Sdv (Esrd)) 10,000 unit SUBCUT NOW ONE Stop: 12/22/24 08:31 Last Admin: 12/22/24 08:33 Dose: 10,000 unit Furosemide (Furosemide 40 Mg Tablet) 40 mg PO DAILY@0800 [facility] [place] Last Admin: 12/12/24 08:51 Dose: 40 mg Furosemide (Furosemide 10 Mg/Ml Sdv 4ml) 40 mg IVP ONCE ONE Stop: 12/12/24 14:54 Last Admin: 12/12/24 15:26 Dose: 40 mg Furosemide (Furosemide 10 Mg/Ml Sdv 4ml) 40 mg IVP Q24H [facility] [place] Last Admin: 12/14/24 11:11 Dose: Not Given Furosemide (Furosemide 10 Mg/Ml Sdv 10ml) 60 mg IVP ONCE ONE Stop: 12/16/24 22:02 Last Admin: 12/16/24 22:21 Dose: 60 mg Furosemide (Furosemide 10 Mg/Ml Sdv 10ml) 60 mg IVP ONCE ONE Stop: 12/22/24 07:42 Last Admin: 12/22/24 07:53 Dose: 60 mg Heparin Sodium (Porcine) (Heparin, Porcine 1,000 Unit/Ml Inj 10 Ml) 10,000 unit INTRACATH ONCE ONE Stop: 12/18/24 19:21 Last Admin: 12/19/24 06:14 Dose: Not Given Heparin Sodium (Porcine) (Heparin, Porcine 1,000 Unit/Ml Inj 10 Ml) 10,000 unit INTRACATH ONCE ONE Stop: 12/19/24 06:01 Last Admin: 12/20/24 08:36 Dose: Not Given Heparin Sodium (Porcine) (Heparin, Porcine 1,000 Unit/Ml Inj 10 Ml) 10,000 unit INTRACATH ONCE ONE Stop: 12/20/24 10:45 Last Admin: 12/20/24 16:17 Dose: 10,000 unit Heparin Sodium (Porcine) (Heparin, Porcine 1,000 Unit/Ml Inj 10 Ml) 10,000 unit HE ONCE ONE Stop: 12/20/24 15:53 Last Admin: 12/20/24 15:30 Dose: 10,000 unit Hydrocortisone Sodium Succinate (Hydrocortisone 100 Mg/2 Ml Sdv) 100 mg IVP TID [facility] Stop: 12/15/24 15:01 Last Admin: 12/15/24 15:11 Dose: 100 mg Sodium Chloride (Sodium Chloride 0.9%) 500 mls @ 500 mls/hr IV ONCE ONE Stop: 12/14/24 11:32 Last Infusion: 12/14/24 12:54 Dose: Infused Amiodarone HCl/Dextrose (Nexterone) 150 mg in 100 mls @ 400 mls/hr IV ONCE ONE Stop: 12/14/24 22:26 Last Infusion: 12/15/24 02:08 Dose: Infused Amiodarone HCl/Dextrose (Nexterone) 360 mg in 200 mls @ 0 mls/hr IV .Q0M [facility]; P rotocol Last Titration: 12/15/24 18:27 Dose: Infused Norepinephrine Bitartrate (Levophed) Confirm Administered Dose 4 mg in 250 mls @ as directed .ROUTE .STK-MED ONE Stop: 12/14/24 22:16 Sodium Chloride (Sodium Chloride 0.9%) 250 mls @ 250 mls/hr IV ONCE ONE Stop: 12/14/24 23:36 Last Infusion: 12/15/24 02:08 Dose: Infused Piperacillin Sod/Tazobactam (Sod 3.375 gm/ Sodium Chloride) 50 mls @ 12.5 mls/hr IV Q8H [facility] [place] Last Infusion: 12/16/24 18:56 Dose: Infused Vancomycin HCl (Vancocin) 1,500 mg in 300 mls @ 200 mls/hr IV Q48H [facility] [place] Last Infusion: 12/15/24 06:30 Dose: Infused Vasopressin (Vasostrict) 40 unit in 100 mls @ 0 mls/hr IV .Q0M [facility]; Protocol Last Titration: 12/17/24 19:00 Dose: Infused Fentanyl (Sublimaze) 1,000 mcg in 100 mls @ 0 mls/hr IV .Q0M [facility]; Protocol Last Titration: 12/18/24 11:35 Dose: 0 mcg/hr, 0 mls/hr Propofol (Diprivan) 1,000 mg in 100 mls @ 0 mls/hr IV .Q0M [facility]; Protocol Last Titration: 12/15/24 14:45 Dose: 0 mcg/kg/min, 0 mls/hr Etomidate (Amidate) Confirm Administered Dose 20 mls @ as directed .ROUTE .[facility] ONE Stop: 12/15/24 08:45 Last Admin: 12/15/24 08:51 Dose: 1 mls/hr Sodium Chloride (Sodium Chloride 0.9% (100 Ml)) Confirm Administered Dose 100 mls @ as directed .ROUTE .[facility] ONE Stop: 12/15/24 08:46 Last Admin: 12/15/24 11:21 Dose: 1 mls/hr Propofol (Diprivan) Confirm Administered Dose 1,000 mg in 100 mls @ as directed .ROUTE .[facility] ONE Stop: 12/15/24 08:54 Tranexamic Acid (Tranexamic Acid) 1,000 mg in 100 mls @ 600 mls/hr IV ONCE ONE Stop: 12/15/24 09:08 Last Infusion: 12/15/24 09:23 Dose: Infused Sodium Chloride (Sodium Chloride 0.9% (100 Ml)) Confirm Administered Dose 100 mls @ as directed .ROUTE .[facility] ONE Stop: 12/15/24 08:59 Midazolam HCl (Versed) Confirm Administered Dose 100 mg in 100 mls @ as directed .ROUTE .[facility] ONE Stop: 12/15/24 09:28 Last Admin: 12/15/24 09:40 Dose: 3 mls/hr Midazolam HCl (Versed) 100 mg in 100 mls @ 0 mls/hr IV .Q0M [facility] [place]; Protocol Last Titration: 12/18/24 10:30 Dose: 0 mg/hr, 0 mls/hr Tranexamic Acid (Tranexamic Acid) 1,000 mg in 100 mls @ 600 mls/hr IV Q30M ONE Stop: 12/15/24 14:21 Last Infusion: 12/15/24 15:01 Dose: Infused Sodium Chloride (Sodium Chloride 0.9%) 1,000 mls @ 125 mls/hr IV .Q8H [facility] [place] Last Admin: 12/16/24 15:05 Dose: Not Given Albumin Human (Albumin) 25 g in 100 mls @ 60 mls/hr IV ONCE ONE Stop: 12/15/24 17:28 Last Admin: 12/15/24 15:55 Dose: 60 mls/hr Vancomycin HCl 500 mg/ Sodium (Chloride) 100 mls @ 200 mls/hr IV ONCE ONE Stop: 12/16/24 14:14 Last Infusion: 12/16/24 18:56 Dose: Infused Piperacillin Sod/Tazobactam (Sod 3.375 gm/ Sodium Chloride) 50 mls @ 12.5 mls/hr IV Q12H [facility] [place] Last Infusion: 12/21/24 19:00 Dose: Infused Vancomycin HCl 500 mg/ Sodium (Chloride) 100 mls @ 200 mls/hr IV ONCE ONE Stop: 12/18/24 15:59 Last Infusion: 12/18/24 19:00 Dose: Infused Albumin Human (Albumin) 12.5 gm in 50 mls @ 60 mls/hr IV PRN PRN PRN Reason: Hypotension and/or symptomatic Albumin Human (Albumin) 12.5 gm in 50 mls @ 60 mls/hr IV ONCE ONE Stop: 12/20/24 11:51 Last Infusion: 12/20/24 14:06 Dose: Infused Amiodarone HCl/Dextrose (Nexterone) 150 mg in 100 mls @ 400 mls/hr IV ONCE ONE Stop: 12/21/24 03:35 Last Admin: 12/21/24 07:27 Dose: Not Given Meropenem (Meropenem 1,000 Mg Sdv) 1,000 mg IVP Q8H [facility] [place]; Protocol Last Admin: 12/21/24 14:20 Dose: 1,000 mg Methylprednisolone Sodium Succinate (Methylprednisolone Sod Succ 125 Mg/2 Ml Inj) 125 mg IV ONCE ONE Stop: 12/11/24 17:09 Last Admin: 12/11/24 17:38 Dose: 125 mg Methylprednisolone Sodium Succinate (Methylprednisolone Sod Succ 125 Mg/2 Ml Inj) 60 mg IVP DAILY [facility] [place] Last Admin: 12/14/24 08:52 Dose: 60 mg Methylprednisolone Sodium Succinate (Methylprednisolone Sod Succ 125 Mg/2 Ml Inj) 40 mg IVP Q8H [facility] Methylprednisolone Sodium Succinate (Methylprednisolone Sod Succ 40 Mg/Ml Inj) 40 mg IVP Q12H [facility] [place] Methylprednisolone Sodium Succinate (Methylprednisolone Sod Succ 40 Mg/Ml Inj) 40 mg IVP Q24H [facility] [place] Last Admin: 12/14/24 15:40 Dose: 40 mg Midazolam HCl (Midazolam 1 Mg/Ml Inj 2 Ml) 2 mg IVP Q4H PRN PRN Reason: agitation Last Admin: 12/18/24 17:29 Dose: 2 mg Midazolam HCl (Midazolam 1 Mg/Ml Inj 2 Ml) 4 mg IVP ONCE ONE Stop: 12/18/24 17:30 Last Admin: 12/18/24 18:00 Dose: Not Given Ondansetron HCl (Ondansetron 4 Mg Tablet) 4 mg PO Q6H PRN PRN Reason: NAUSEA Oxycodone/Acetaminophen (Oxycodone-Apap 5-325 Mg Tablet) 2 tab PO ONCE ONE Stop: 12/11/24 22:04 Last Admin: 12/11/24 22:07 Dose: 2 tab Oxycodone/Acetaminophen (Oxycodone-Apap 5-325 Mg Tablet) 1 tab PO Q4H PRN PRN Reason: moderate pain Last Admin: 12/14/24 17:51 Dose: 1 tab Pantoprazole Sodium (Pantoprazole Dr 40 Mg Tablet) 40 mg PO DAILY [facility] Last Admin: 12/11/24 20:49 Dose: 40 mg Propofol (Propofol 10 Mg/Ml Sdv 20 Ml) Confirm Administered Dose 200 mg .ROUTE .STK-MED ONE Stop: 12/15/24 08:45 Last Admin: 12/15/24 11:26 Dose: Not Given Protamine Sulfate (Protamine 10 Mg/Ml Sdv 5 Ml) 50 mg IVP NOW ONE Stop: 12/15/24 15:01 Last Admin: 12/15/24 14:44 Dose: 50 mg Rocuronium [place] (Rocuronium 10 Mg/Ml Inj 5ml) Confirm Administered Dose 50 mg .ROUTE .STK-MED ONE Stop: 12/15/24 08:46 Last Admin: 12/15/24 11:27 Dose: Not Given Sodium Chloride (Sodium Chloride 0.9% 100 Ml Bag) 50 ml IV PRN PRN PRN Reason: Blood transfusion prime and flush Stop: 12/16/24 08:56 Last Admin: 12/15/24 09:10 Dose: 50 ml Sodium Chloride (Sodium Chloride 0.9% 100 Ml Bag) 50 ml IV PRN PRN PRN Reason: Blood transfusion prime and flush Stop: 12/16/24 09:21 Sodium Chloride (Sodium Chloride 0.9% 100 Ml Bag) 50 ml IV PRN PRN PRN Reason: Blood transfusion prime and flush Stop: 12/16/24 18:11 Succinylcholine Chloride (Succinylcholine 20 Mg/Ml Sdv 10ml) Confirm Administered Dose 400 mg .ROUTE .STK-MED ONE Stop: 12/15/24 08:46 Last Admin: 12/15/24 08:51 Dose: 400 mg Vancomycin HCl (Vancomycin 1,000 Mg Sdv (Pharmacy Mix)) 0 mg XX PRN PRN PRN Reason: Pharmacy to Dose Allergies iodine Allergy (Unknown, Verified 08/30/24 07:05) ALGY-Blister metoprolol Allergy (Unknown, Verified 08/30/24 07:05) Unknown alcohol Allergy (Verified 08/30/24 07:05) ALGY-Hives alfalfa Allergy (Verified 08/30/24 07:05) ALGY-Rash aloe vera Allergy (Verified 08/30/24 07:05) ALGY-Blister atenolol Allergy (Verified 08/30/24 07:05) ALGY-Swell Lip/Tongue/Throat bamboo Allergy (Verified 08/30/24 07:05) ALGY-Rash barley Allergy (Verified 08/30/24 07:05) ALGY-Rash bran Allergy (Verified 08/30/24 07:05) ALGY-Hives [employer] Allergy (Verified 08/30/24 07:05) ALGY-Hives clams Allergy (Verified 08/30/24 07:05) ALGY-Difficulty Swallowing crab Allergy (Verified 08/30/24 07:05) Unknown crayfish Allergy (Verified 08/30/24 07:05) Unknown diphenhydramine (From Benadryl) Allergy (Verified 08/30/24 07:05) ADR-Itching epinephrine Allergy (Verified 08/30/24 07:05) ADR/ALGY-Palpitations grapefruit Allergy (Verified 08/30/24 07:05) Unknown grass pollen Allergy (Verified 08/30/24 07:05) ALGY-Rash juniper tar Allergy (Verified 08/30/24 07:05) Unknown kiwi Allergy (Verified 08/30/24 07:05) ALGY-Hives latex Allergy (Verified 08/30/24 07:05) ALGY-Rash lavender (Lavandula angustifolia) Allergy (Verified 08/30/24 07:05) ALGY-Rash lemon Allergy (Verified 08/30/24 07:05) ALGY-Rash lemon oil Allergy (Verified 08/30/24 07:05) ALGY-Rash licorice Allergy (Verified 08/30/24 07:05) Unknown samish Allergy (Verified 08/30/24 07:05) Unknown molasses Allergy (Verified 08/30/24 07:05) Unknown mold Allergy (Verified 08/30/24 07:05) ALGY-Rash mussels Allergy (Verified 08/30/24 07:05) Unknown nut - unspecified Allergy (Verified 08/30/24 07:05) ALGY-Hives oats Allergy (Verified 08/30/24 07:05) ALGY-Hives octopus Allergy (Verified 08/30/24 07:05) Unknown orange Allergy (Verified 08/30/24 07:05) ALGY-Rash oyster extract Allergy (Verified 08/30/24 07:05) Unresponsive passion fruit Allergy (Verified 08/30/24 07:05) Unknown scallops Allergy (Verified 08/30/24 07:05) Unknown shellfish derived Allergy (Verified 08/30/24 07:05) ALGY-Swell Lip/Tongue/Throat shrimp Allergy (Verified 08/30/24 07:05) Unknown squid Allergy (Verified 08/30/24 07:05) Unknown wheat Allergy (Verified 08/30/24 07:05) ALGY-Hives shell fish Allergy (Severe, Uncoded 08/30/24 07:05) ALGY-Swell Lip/Tongue/Throat abolone Allergy (Uncoded 08/30/24 07:05) Unknown anchovie Allergy (Uncoded 08/30/24 07:05) ALGY-Hives antibacterial soap Allergy (Uncoded 08/30/24 07:05) Unknown berries Allergy (Uncoded 08/30/24 07:05) ALGY-Hives carob Allergy (Uncoded 08/30/24 07:05) Unknown contrast dye Allergy (Uncoded 08/30/24 07:05) ALGY-Difficulty Breathing gold Allergy (Uncoded 08/30/24 07:05) Unknown hemp oil Allergy (Uncoded 08/30/24 07:05) ALGY-Rash kumquat Allergy (Uncoded 08/30/24 07:05) Unknown lobster Allergy (Uncoded 08/30/24 07:05) Unknown malt Allergy (Uncoded 08/30/24 07:05) ALGY-Blister mesquite Allergy (Uncoded 08/30/24 07:05) Unknown millet Allergy (Uncoded 08/30/24 07:05) ALGY-Rash mink oil Allergy (Uncoded 08/30/24 07:05) ALGY-Rash mola Allergy (Uncoded 08/30/24 07:05) Unknown MSG Allergy (Uncoded 08/30/24 07:05) Unknown prawn Allergy (Uncoded 08/30/24 07:05) Unknown rye Allergy (Uncoded 08/30/24 07:05) ALGY-Rash snail Allergy (Uncoded 08/30/24 07:05) Unknown sorghum Allergy (Uncoded 08/30/24 07:05) Unknown tangello Allergy (Uncoded 08/30/24 07:05) Unresponsive tangerine Allergy (Uncoded 08/30/24 07:05) Unknown [facility] sauce Adverse Reaction (Severe, Uncoded 08/30/24 07:05) ALGY-Swell Lip/Tongue/Throat Home Medications cyanocobalamin (vitamin B-12) 1,000 mcg tablet (Vitamin B-12) 1,000 mcg PO QPM 05/30/21 [History Confirmed 12/12/24] calcium carbonate 500 mg PO QPM 05/20/22 [History Confirmed 12/12/24] cholecalciferol (vitamin D3) 50 mcg (2,000 unit) tablet (Vitamin D3) 50 mcg PO QPM 05/20/22 [History Confirmed 12/12/24] cetirizine 10 mg tablet 10 mg PO BID PRN allergy symptoms #180 tabs 06/10/23 [Rx Confirmed 12/12/24] isosorbide mononitrate 30 mg tablet,extended release 24 hr 30 mg PO DAILY #90 tabs 11/26/23 [Rx Confirmed 12/12/24] lisinopril 2.5 mg tablet 2.5 mg PO QAM #90 tabs 12/18/23 [Rx Confirmed 12/12/24] furosemide 20 mg tablet See Rx Instructions .Route .COMPLEX #180 tabs 01/07/24 [Rx Confirmed 12/12/24] hydrocodone 5 mg-acetaminophen 325 mg tablet 1 tab PO Q8H PRN pain 7 days #20 tabs 01/07/24 [Rx Confirmed 12/12/24] potassium chloride 10 mEq tablet,extended release 20 meq (2 x 10 mEq) PO DAILY #180 tabs 01/07/24 [Rx Confirmed 12/12/24] rivaroxaban 20 mg tablet (Xarelto) See Rx Instructions .Route .COMPLEX #90 tabs 01/07/24 [Rx Confirmed 12/12/24] nitroglycerin 0.4 mg sublingual tablet 0.4 mg sublingual Q5M PRN chest pain #25 tabs 08/24/24 [Rx Confirmed 12/12/24] doxycycline hyclate 100 mg capsule 100 mg PO BID 10 days #20 caps 12/11/24 [Rx] guaifenesin 600 mg tablet, extended release 12 hr (Mucinex) 600 mg PO BID 3 days #6 tabs 12/11/24 [Rx] prednisone 20 mg tablet 40 mg (2 x 20 mg) PO DAILY 3 days #6 tabs 12/11/24 [Rx] acetaminophen 650 mg tablet,extended release (Tylenol Arthritis Pain) 650 mg PO Q12H 12/12/24 [History Confirmed 12/12/24] Discharge Plan Discharge Patient Disposition: Home Condition: Stable Prescriptions: New prednisone 20 mg tablet 40 mg PO DAILY 3 Days Qty: 6 0RF doxycycline hyclate 100 mg capsule 100 mg PO BID 10 Days Qty: 20 0RF guaifenesin [Mucinex] 600 mg tablet extended release 12hr 600 mg PO BID 3 Days Qty: 6 0RF No Action cetirizine 10 mg tablet 10 mg PO BID PRN (Reason: allergy symptoms) Qty: 180 3RF isosorbide mononitrate 30 mg tablet extended release 24 hr 30 mg PO DAILY Qty: 90 3RF furosemide 20 mg tablet See Rx Instructions .ROUTE .COMPLEX Qty: 180 1RF Dose Instruction: TAKE 2 TABLETS BY MOUTH EVERY DAY NEEDED FOR EDEMA Rx Instructions: TAKE 2 TABLETS BY MOUTH EVERY DAY NEEDED FOR EDEMA Xarelto 20 mg tablet See Rx Instructions .ROUTE .COMPLEX Qty: 90 3RF Dose Instruction: TAKE 1 TABLET BY MOUTH EVERY DAY IN THE EVENING Rx Instructions: TAKE 1 TABLET BY MOUTH EVERY DAY IN THE EVENING potassium chloride 10 mEq tablet extended release 20 meq PO DAILY Qty: 180 3RF hydrocodone-acetaminophen 5-325 mg tablet 1 tab PO Q8H PRN (Reason: pain) 7 Days Qty: 20 0RF nitroglycerin 0.4 mg tablet, sublingual 0.4 mg sublingual Q5M PRN (Reason: chest pain) Qty: 25 2RF Rx Instructions: do not exceed 3 doses per episode lisinopril 2.5 mg tablet 2.5 mg PO QAM Qty: 90 3RF cyanocobalamin (vitamin B-12) [Vitamin B-12] 1,000 mcg Tablet 1,000 mcg PO QPM calcium carbonate 500 mg calcium (1,250 mg) Tablet 500 mg PO QPM cholecalciferol (vitamin D3) [Vitamin D3] 50 mcg (2,000 unit) Tablet 50 mcg PO QPM acetaminophen [Tylenol Arthritis Pain] 650 mg Tablet Extended Release 650 mg PO Q12H Discharge Orders: Transfer Out of Facility (Order); Ordered 12/22/24 Ordered By: Marco Bender Referrals: Awa Frederick MD [Primary Care Provider] - Discharge Diet: Usual diet Discharge Activity: Increase activity as tolerated Patient Instructions: Upper Respiratory Infection (ED), Opioid Safety Transfer Attestations Time Spent in Transfer Care: greater than 30 min Specific Discharge Activities: educating and/or supporting family/caregiver, discussing with pcp/other providers, discussing with case investigator/social workers/dc planners, documenting/other paperwork and evaluating patient/reviewing data Status at Transfer: Cognitive status at transfer: severely impaired cognition ; Behavioral status at transfer: cooperative ; Functional status at transfer: bed bound ; Overall status at transfer: patient is not back to baseline Quality Metrics Clinical Quality Measures [ No reported AMI, CVA or VTE this stay] Coding Level of Care Code Critical Care >/= 30 minutes Critical care time (in minutes): 70 The high probability of a clinically significant, sudden or life threatening deterioration, as referenced in this documentation, required my full and direct attention, intervention and personal management. The critical care time shown is in addition to time spent performing any reported separately billable procedures and includes the following: [x] Data and vital sign review and interpretation [x ] Patient assessment, examination and intervention [x] Medication orders and management [x] Patient/Family updates as able [x] Care Coordination and Document ation. Other Coding Information This patient has a high probability of clinically significant, sudden or life threatening deterioration of the patient's (neurological/pulmon johnnie/cardiac/renal/ID/endocrine) systems required my full, direct attention, the highest level of physician preparedness for urgent intervention and personal management. I managed/supervised life or organ supporting interventions that required frequent physician assessment. I devoted my full attention in the ICU to the direct care of this patient for the period of time indicated above. Time I spent with family or surrogate(s) is included only if the patient was incapable of providing necessary information or participating in decision making. This time includes the following services provided: Telemetry review Mechanical Ventilation Hemodynamic interpretation, assessment and management Review and interpretation of CXR Review and interpretation of lab values Review and interpretation of microbiologic data and culture results Review of medications and administration Review and interpretation of Nutrition requirements and management Discussion of management with other consultants and services Clinical update to family members Diagnoses SRINI (acute kidney injury) N17.9 Hemorrhagic shock R57.8 Nonsustained ventricular tachycardia I47.29 Bradycardia R00.1 Atrial fibrillation with RVR I48.91 Demand ischemia I24.89 Primary hypertension I10 Hypertension type: primary hypertension Pulmonary hypertension I27.20 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
--- NOTE | 2024-12-22 12:25 | PM.MISC ---
Miscellaneous Note Purpose of Documentation: Update on patient care Note: I was called as dialysis catheter appeared to be occluded. with sterile technique I accessed the catheter and with gentle repositioning I was able to verify catheter was working properly with good flow in both lumens. likely the tip of the catheter was close to the vein wall, which resolved with catheter repositioning. the dressing was replaced. Catheter is cleared to continue to be used for dialysis as needed.
--- NOTE | 2024-12-22 12:55 | PC.HD ---
After approximately one hour of dialysis, catheter became non-functioning, despite lowering of blood flow rate to minimum value of 250. In addition, venous chamber of dialysis circuit clotted. Treatment was paused and CathFlo 2 mg was instilled into each catheter limb from [id number]. Improvement in ability to draw and flush from ports was noted, although some resistance was still present. Machine was restrung and treatment was restarted; however, after only two minutes of treatment, machine AP alarms maxed out and treatment was unable to continue, despite repositioning of patient's head and dialysis lines. Hospitalist repositioned catheter and reported improved flushing; however, it was decided that patient would be transferred to her LTAC facility and receive dialysis there. No fluids were removed during this truncated treatment; patient received a net additional 210 mL during treatment. Archivist Economic History aware.
[2024-12-22] MEDS: fluconazole premix 200 MG/100 ML PREMIX 100 MG IV (13:44)
--- NOTE | 2024-12-22 14:32 | PC.NURSE ---
am events preparing for transfer to [facility] , dyalisis attempted according to dialysis nurse line sluggish called doctor Anu and line repositioned now site good report given daughter here at bedside sent bag with id and keys in with pt as requested, by daughter ,ariel crew here and transfered, phone [phone]
[2024-12-23 16:45] LABS: Anti-Double Strand DNA AB <1 IU/mL
== END 2024-12-22 14:00 | DRG 207 ==
LOC: ER 19:10 → ER IP 23:04 → MEDSURG 12-12 13:02 → ICU 12-14 22:26
PROVIDERS: Hospitalist; Internal Medicine; Internal Medicine Nephrology; Admitting Provider Internal Medicine; Emergency Provider Emergency Medicine; PCP Family Medicine; Visit Provider Student in an Organized Health Care Education/Training Program
DX: J96.21 Acute and chronic respiratory failure with hypoxia (principal); J18.9 Pneumonia, unspecified organism; R57.8 Other shock; G93.41 Metabolic encephalopathy; I21.A1 Myocardial infarction type 2; N17.0 Acute kidney failure with tubular necrosis; J45.901 Unspecified asthma with (acute) exacerbation; T82.42XA Displacement of vascular dialysis catheter, initial encounter; I47.20 Ventricular tachycardia, unspecified; I48.11 Longstanding persistent atrial fibrillation; B37.89 Other sites of candidiasis; E87.20 Acidosis, unspecified; Z99.11 Dependence on respirator [ventilator] status; S36.892A Contusion of other intra-abdominal organs, initial encounter; I50.32 Chronic diastolic (congestive) heart failure; Y81.8 Miscellaneous general- and plastic-surgery devices associated with adverse incidents, not elsewhere classified; R00.1 Bradycardia, unspecified; I95.9 Hypotension, unspecified; D64.9 Anemia, unspecified; R74.8 Abnormal levels of other serum enzymes; M81.0 Age-related osteoporosis without current pathological fracture; M16.11 Unilateral primary osteoarthritis, right hip; M17.12 Unilateral primary osteoarthritis, left knee; I35.0 Nonrheumatic aortic (valve) stenosis; Z79.01 Long term (current) use of anticoagulants; Z79.891 Long term (current) use of opiate analgesic; Z66 Do not resuscitate; I49.3 Ventricular premature depolarization; Z86.718 Personal history of other venous thrombosis and embolism; G47.33 Obstructive sleep apnea (adult) (pediatric); I25.10 Atherosclerotic heart disease of native coronary artery without angina pectoris; X58.XXXA Exposure to other specified factors, initial encounter; I27.20 Pulmonary hypertension, unspecified; I11.0 Hypertensive heart disease with heart failure
CPT/HCPCS: 12345; 36415; 36416; 36430; 36592; 36600; 51702; 70450; 71045; 71250; 72170; 74018; 74176; 80048; 80051; 80053; 80061; 80202; 80503; 81001; 82140; 82310; 82330; 82607; 82728; 82746; 82803; 82805; 82962; 83036; 83520; 83540; 83550; 83605; 83735; 83880; 83970; 84100; 84145; 84439; 84443; 84484; 85007; 85025; 85610; 85730; 86036; 86038; 86160; 86225; 86706; 86850; 86900; 86920; 86927; 87040; 87070; 87086; 87106; 87205; 87340; 87637; 90935; 93005; 93306; 93308; 94002; 94003; 94640; 94664; 94760; 94799; 96372; 96374; 96375; 96376; 97110; 97116; 97161; 97166; 97530; 99285; A4222; J0283; J0330; J0696; J1450; J1644; J1650; J1720; J1940; J2185; J2250; J2470; J2543; J2598; J2704; J2720; J2919; J2997; J3010; J3370; J3490; J7030; J7040; J7050; P9016; P9017; P9035; P9046; P9047; Q0144; Q3014; Q5105

== ENCOUNTER 2025-03-07 22:51 | Emergency (ER) | payer MEDICARE, OTHER, MEDICAID, SELFPAY ==
--- NOTE | 2025-03-07 22:54 | CTR_ITS ---
PROCEDURE INFORMATION: Exam: CT Pelvis Without Contrast, Skeleton Exam date and time: 03/07/2025 11:39 PM Age: 79 years old Clinical indication: Pain and injury or trauma; Fall; Blunt trauma (contusions or hematomas); Hip pain and pelvic pain and perianal pain; Left hip; Additional info: Fall pelvic pain TECHNIQUE: Imaging protocol: Computed tomography of the pelvis without contrast. Exam focused on the skeleton. Radiation optimization: All CT scans at this facility use at least one of these dose optimization techniques: automated exposure control; mA and/or kV adjustment per patient size (includes targeted exams where dose is matched to clinical indication); or iterative reconstruction. COMPARISON: CT abdomen pelvis wo con [id number] 12/20/2024 8:00 PM RADIATION DOSE METRICS: Total DLP (mGy-cm): 631.74 FINDINGS: Intraperitoneal space: No free intraperitoneal air. No significant fluid collection. Vasculature: There is no aortic aneurysm. There is atherosclerotic disease. Reproductive: Uterus contains calcified fibroids. No suspicious adnexal lesion seen. Urinary bladder: Bladder is distended with no focal wall thickening. Bones/joints: No acute osseous abnormality. There is degenerative disease of the spine. Soft tissues: Left periumbilical hernia contains bowel loops with no evidence of obstruction. Resolving right rectus sheath hematoma. CT/CT pelvis wo con [id number] IMPRESSION: 1. No acute findings. 2. Resolving right rectus sheath hematoma.
[2025-03-07 22:55] VITALS: BP 157/72; PULSE 62; RESP 18; TEMP 35.9; O2SAT 96; BMI 32.1
--- NOTE | 2025-03-07 22:56 | ED_ITS ---
HPI - Fall General: Chief Complaint: Fall Stated Complaint: fall, left hip pain Time Seen by Provider: 03/07/25 22:51 Source: patient and EMS Mode of arrival: EMS Limitations: no limitations History of Present Illness: 79-year-old female who is here from [facility] after a fall states she went to the bathroom turned around to flush the toilet and slid down the toilet she states she has pain in her tailbone along with some left pelvic pain and slight left hip pain no obvious deformities denies any other injuries rates her pain a 2 out of 10 currently Associated symptoms-after fall: Denies abdominal pain, chest pain, headache(s) or neck pain Related Data Home Medications ?Medication ?Instructions ?Recorded ?Confirmed cyanocobalamin (vitamin B-12) 1,000 mcg PO QPM 12/12/24 1,000 mcg tablet (Vitamin B-12) calcium carbonate 500 mg PO QPM 05/20/2212/12 cholecalciferol (vitamin D3) 50 50 mcg PO QPM 05/20/22 12/12/24 mcg (2,000 unit) tablet (Vitamin D3) acetaminophen 650 mg 650 mg PO Q12H 12/12/2411/17 tablet,extended release (Tylenol Arthritis Pain) Previous Rx's ?Medication ?Instructions ?Recorded cetirizine 10 mg tablet 10 mg PO BID PRN allergy sym ptoms 06/10/23 #180 tabs isosorbide mononitrate 30 mg 30 mg PO DAILY #90 tabs 0 11/26/23 tablet,extended release 24 hr lisinopril 2.5 mg tablet 2.5 mg PO QAM #90 tabs 12/18 furosemide 20 mg tablet See Rx Instructions .Route 0 01/07/24 .COMPLEX #180 tabs hydrocodone 5 mg-acetaminophen 325 1 tab PO Q8H PRN pa in 7 days #20 01/07/24 mg tablet tabs potassium chloride 10 mEq 20 meq (2 x 10 mEq) PO DAILY #180 01/07/24 tablet,extended release tabs rivaroxaban 20 mg tablet (Xarelto) See Rx Instructions .Route 01/07/24 .COMPLEX #90 tabs nitroglycerin 0.4 mg sublingual 0.4 mg sublingual Q5M PRN chest 08/24/24 tablet pain #25 tabs Allergies Allergy/AdvReac Type Severity Reaction Status Date / Time iodine Allergy Unknown ALGY-Bliste Verified 08/30/24 07:05 r metoprolol Allergy Unknown Unknown Verified 08/30/24 07:05 alcohol Allergy ALGY-Hives Verified 08/30/24 07:05 alfalfa Allergy ALGY-Rash Verified 08/30/24 07:05 aloe vera Allergy ALGY-Bliste Verified 08/30/24 07:05 r atenolol Allergy ALGY-Swell Verified 08/30/24 07:05 Lip/Tongue/Throat bamboo Allergy ALGY-Rash Verified 08/30/24 07:05 barley Allergy ALGY-Rash Verified 08/30/24 07:05 bran Allergy ALGY-Hives Verified 08/30/24 07:05 [place] [employer] Allergy ALGY-Hives Verified 08/30/24 07:05 clams Allergy ALGY-Difficulty Verified 08/30/24 07:05 Swallowing crab Allergy Unknown Verified 08/30/24 07:05 crayfish Allergy Unknown Verified 08/30/24 07:05 diphenhydramine (From Allergy ADR-Itching Verified 08/30/24 07:05 Benadryl) epinephrine Allergy ADR/ALGY-Pa Verified 08/30/24 07:05 lpitations grapefruit Allergy Unknown Verified 08/30/24 07:05 grass pollen Allergy ALGY-Rash Verified 08/30/24 07:05 juniper tar Allergy Unknown Verified 08/30/24 07:05 kiwi Allergy ALGY-Hives Verified 08/30/24 07:05 latex Allergy ALGY-Rash Verified 08/30/24 07:05 lavender (Lavandula Allergy ALGY-Rash Verified 08/30/24 07:05 angustifolia) lemon Allergy ALGY-Rash Verified 08/30/24 07:05 lemon oil Allergy ALGY-Rash Verified 08/30/24 07:05 licorice Allergy Unknown Verified 08/30/24 07:05 tazlina Allergy Unknown Verified 08/30/24 07:05 molasses Allergy Unknown Verified 08/30/24 07:05 mold Allergy ALGY-Rash Verified 08/30/24 07:05 mussels Allergy Unknown Verified 08/30/24 07:05 nut - unspecified Allergy ALGY-Hives Verified 08/30/24 07:05 oats Allergy ALGY-Hives Verified 08/30/24 07:05 octopus Allergy Unknown Verified 08/30/24 07:05 orange Allergy ALGY-Rash Verified 08/30/24 07:05 oyster extract Allergy Unresponsiv Verified 08/30/24 07:05 e passion fruit Allergy Unknown Verified 08/30/24 07:05 scallops Allergy Unknown Verified 08/30/24 07:05 shellfish derived Allergy ALGY-Swell Verified 08/30/24 07:05 Lip/Tongue/Throat shrimp Allergy Unknown Verified 08/30/24 07:05 squid Allergy Unknown Verified 08/30/24 07:05 wheat Allergy ALGY-Hives Verified 08/30/24 07:05 shell fish Allergy Severe ALGY-Swell Uncoded 08/30/24 07:05 Lip/Tongue/Throat abolone Allergy Unknown Uncoded 08/30/24 07:05 anchovie Allergy ALGY-Hives Uncoded 08/30/24 07:05 antibacterial soap Allergy Unknown Uncoded 08/30/24 07:05 berries Allergy ALGY-Hives Uncoded 08/30/24 07:05 carob Allergy Unknown Uncoded 08/30/24 07:05 contrast dye Allergy ALGY-Difficulty Uncoded 08/30/24 07:05 Breathing gold Allergy Unknown Uncoded 08/30/24 07:05 hemp oil Allergy ALGY-Rash Uncoded 08/30/24 07:05 kumquat Allergy Unknown Uncoded 08/30/24 07:05 lobster Allergy Unknown Uncoded 08/30/24 07:05 malt Allergy ALGY-Bliste Uncoded 08/30/24 07:05 r mesquite Allergy Unknown Uncoded 08/30/24 07:05 millet Allergy ALGY-Rash Uncoded 08/30/24 07:05 mink oil Allergy ALGY-Rash Uncoded 08/30/24 07:05 mola Allergy Unknown Uncoded 08/30/24 07:05 MSG Allergy Unknown Uncoded 08/30/24 07:05 prawn Allergy Unknown Uncoded 08/30/24 07:05 rye Allergy ALGY-Rash Uncoded 08/30/24 07:05 snail Allergy Unknown Uncoded 08/30/24 07:05 sorghum Allergy Unknown Uncoded 08/30/24 07:05 tangello Allergy Unresponsiv Uncoded 08/30/24 07:05 e tangerine Allergy Unknown Uncoded 08/30/24 07:05 [facility] sauce AdvReac Severe ALGY-Swell Uncoded 08/30/24 07:05 Lip/Tongue/Throat Review of Systems Const: Denies: fever(s), chills, body aches or change in appetite ENMT: Denies: throat pain or dental pain Card: Denies: chest pain Resp: Denies: dyspnea GI: Denies: abdominal pain, nausea, vomiting or diarrhea Musc: Reports: extremity pain; Denies: neck pain or back pain Skin/Breast: Denies: rash Neuro: Denies: headache(s) PFSH ED PFSH: Medical History Balance problem Weakness Asthma Osteoarthritis of left knee Statin intolerance Osteoarthritis of right hip severe on imaging; Hx of deep venous thrombosis right leg Chronic venous insufficiency of lower extremity R leg; hx of DVT this leg Disability of walking Aortic stenosis Osteoporosis didn't tolerate oral bisphosphonates; did prolia for 5 yrs; she doesn't want to do any more DEXAs Bradycardia sees cardio [facility] Carotid atherosclerosis bilateral mild on US 04/08 Chronic atrial fibrillation Chest pain Symptomatic bradycardia Anticoagulation adequate with anticoagulant therapy COPD (chronic obstructive pulmonary disease) Pulmonary arterial hypertension Sleep apnea not using CPAP; sleeps in recliner Hypertension CAD (coronary artery disease) seeing cardio in [place] Surgical History Status post laparoscopic cholecystectomy (03/06/21) H/O left knee surgery arthroscopic H/O right knee surgery arthroscopic H/O tubal ligation History of colonoscopy with polypectomy 2016 History of esophagogastroduodenoscopy (EGD) Family History Mother Diabetes CAD (coronary artery disease) Social History Smoking and tobacco/nicotine status: never used tobacco/nicotine Second hand smoke exposure: No Alcohol intake: never Substance/Drug Use: never Lives independently: Yes Household members: none Marital status: / Number of children: 3 Highest education level completed: Some College, No Degree Current occupational status: 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 Do you think of yourself as: Straight/Heterosexual Current gender identity: Female Female Reproductive History: Spontaneous abortions: No Physical Exam Const: COMMON NORMALS: no acute distress, patient oriented x3 and healthy appearing HENMT: COMMON NORMALS: normocephalic and atraumatic HEAD & SCALP: normocephalic and atraumatic Eye: COMMON NORMALS: conjunctivae normal CONJUNCTIVA: Yes conjunctivae normal Neck/C-Spine: COMMON NORMALS: full ROM and supple Chest: COMMONS NORMALS: normal inspection of the chest Resp: COMMON NORMALS: normal respiratory effort Cardio: COMMON NORMALS: regular rate RATE: regular rate Extremity: NARRATIVE EXTREMITY EXAM: Slight tenderness over left hip along with tailbone no obvious deformity distal pulses sensation intact Neuro: COMMON NORMALS: patient oriented x3, moves all extremities and no focal motor deficits Psych: COMMON NORMALS: mental status grossly normal, Normal thought process present and cooperative THOUGHT PROCESS: Normal thought process present Skin: COMMON NORMALS: no rashes or lesions noted and no wounds GENERAL SKIN EXAM: no rashes or lesions noted Course Vital Signs: Vital signs: Vital Signs Temperature 96.7 F L 03/07/25 22:55 Pulse Rate 72 03/08/25 00:00 Respiratory Rate 16 03/07/25 23:03 Blood Pressure 189/76 03/08/25 00:00 Pulse Oximetry 93 03/08/25 00:00 Oxygen Delivery Me thod Room Air 03/08/25 00:00 MDM - Fall Medical Decision Making Patient presents here with hip pain after a fall likely contusion imaging here is negative no fracture noted she stable for discharge back to [facility] Medical Records I reviewed the patient's medical records. Lab Data Radiology Impressions Pelvis CT 03/07/25 22:54 IMPRESSION: 1. No acute findings. 2. Resolving right rectus sheath hematoma. Hip/Pelvis X-Ray 03/07/25 23:02 IMPRESSION: No acute findings. All radiology interpretation(s) finalized by discharge Discharge Plan Discharge Patient Disposition: Home Clinical Impression: Contusion of left hip, Fall Condition: Stable Prescriptions: No Action cetirizine 10 mg tablet 10 mg PO BID PRN (Reason: allergy symptoms) Qty: 180 3RF isosorbide mononitrate 30 mg tablet extended release 24 hr 30 mg PO DAILY Qty: 90 3RF furosemide 20 mg tablet See Rx Instructions .ROUTE .COMPLEX Qty: 180 1RF Dose Instruction: TAKE 2 TABLETS BY MOUTH EVERY DAY NEEDED FOR EDEMA Rx Instructions: TAKE 2 TABLETS BY MOUTH EVERY DAY NEEDED FOR EDEMA Xarelto 20 mg tablet See Rx Instructions .ROUTE .COMPLEX Qty: 90 3RF Dose Instruction: TAKE 1 TABLET BY MOUTH EVERY DAY IN THE EVENING Rx Instructions: TAKE 1 TABLET BY MOUTH EVERY DAY IN THE EVENING potassium chloride 10 mEq tablet extended release 20 meq PO DAILY Qty: 180 3RF hydrocodone-acetaminophen 5-325 mg tablet 1 tab PO Q8H PRN (Reason: pain) 7 Days Qty: 20 0RF nitroglycerin 0.4 mg tablet, sublingual 0.4 mg sublingual Q5M PRN (Reason: chest pain) Qty: 25 2RF Rx Instructions: do not exceed 3 doses per episode lisinopril 2.5 mg tablet 2.5 mg PO QAM Qty: 90 3RF cyanocobalamin (vitamin B-12) [Vitamin B-12] 1,000 mcg Tablet 1,000 mcg PO QPM calcium carbonate 500 mg calcium (1,250 mg) Tablet 500 mg PO QPM cholecalciferol (vitamin D3) [Vitamin D3] 50 mcg (2,000 unit) Tablet 50 mcg PO QPM acetaminophen [Tylenol Arthritis Pain] 650 mg Tablet Extended Release 650 mg PO Q12H Discharge Orders: Discharge ED (Routine); Ordered 03/08/25 Ordered By: Dianne Salmeron Referrals: Awa Frederick MD [Primary Care Provider] - 4-7 days Discharge Diet: Advance as tolerated Discharge Activity: Resume usual activity Patient Instructions: Hip Contusion (ED) Print Language: [place] Coding Level of Care Code ED Supervisor Picking Crew for Isabel Ulloa
--- NOTE | 2025-03-07 23:02 | XRR_ITS ---
PROCEDURE INFORMATION: Exam: XR Left Hip Exam date and time: 03/07/2025 11:00 PM Age: 79 years old Clinical indication: Injury or trauma; Fall; Blunt trauma (contusions or hematomas); Left; Hip TECHNIQUE: Imaging protocol: Radiologic exam of the left hip. Views: 2 or 3 views hip with pelvis when performed. COMPARISON: CT abdomen pelvis wo con [id number] 12/20/2024 8:00 PM FINDINGS: Bones/joints: No acute osseous abnormality. Soft tissues: Unremarkable. XR/XR hip LT 2-3V wo/w pel* [id number] IMPRESSION: No acute findings.
[2025-03-07 23:03] VITALS: BP 157/72; PULSE 66; RESP 16; O2SAT 93
[2025-03-08] VITALS: BP 189/76; PULSE 72; O2SAT 93
[2025-03-08 01:37] VITALS: BP 145/60; PULSE 77; RESP 18; O2SAT 92
[2025-03-08] MEDS: acetaminophen 325 mg Tablet 650 MG PO (01:51)
--- NOTE | 2025-03-08 01:53 | PC.NURSE ---
PT LEFT VIA [facility]. HALF-WAY CALLED AND GIVEN REPORT. NURSE GIL HAD NO FURTHER QUESTIONS. PT WAS CHANGED BEFORE SHE LEFT.
== END 2025-03-08 01:52 | disposition home or self-care (01) ==
PROVIDERS: Emergency Provider Emergency Medicine; PCP Family Medicine
DX: S70.02XA Contusion of left hip, initial encounter (principal); I25.10 Atherosclerotic heart disease of native coronary artery without angina pectoris; J44.9 Chronic obstructive pulmonary disease, unspecified; I10 Essential (primary) hypertension; W18.11XA Fall from or off toilet without subsequent striking against object, initial encounter
CPT/HCPCS: 72192; 73502; 99284; J9999

== ENCOUNTER 2025-10-21 10:22 | Inpatient (IN) | payer MEDICARE, OTHER, MEDICAID, SELFPAY ==
[2025-10-21] VITALS (8 sets, daily range): BP systolic 134–146; BP diastolic 56–75; PULSE 61–79; RESP 17–24; TEMP 36.4–36.9; O2SAT 93–97; BMI 27.3
--- NOTE | 2025-10-21 10:29 | CTR_ITS ---
PROCEDURE INFORMATION: Exam: CT Head Without Contrast Exam date and time: 10/21/2025 10:53 AM Age: 80 years old Clinical indication: Injury or trauma; Fall; Blunt trauma (contusions or hematomas) TECHNIQUE: Imaging protocol: Computed tomography of the head without contrast. Radiation optimization: All CT scans at this facility use at least one of these dose optimization techniques: automated exposure control; mA and/or kV adjustment per patient size (includes targeted exams where dose is matched to clinical indication); or iterative reconstruction. COMPARISON: CT head wo con* [id number] 12/19/2024 2:52 PM RADIATION DOSE METRICS: Total DLP (mGy-cm): 963.18 FINDINGS: Brain: Moderate cerebral atrophy. Mild areas of low-attenuation in the white matter most likely representing small vessel ischemic change. No evidence of mass effect, intracranial hemorrhage or extra-axial collection. No acute infarct. Cerebral ventricles: See Brain section for description. Paranasal sinuses: Partial opacification anterior ethmoid air cells. Mastoid air cells: Mastoids are within normal limits. Orbital cavities: Orbits are within normal limits. Bones: No evidence of skull fracture. Soft tissues: No significant pathology. CT/CT head wo con* [id number] IMPRESSION: No acute traumatic pathology or significant interval change.
--- NOTE | 2025-10-21 10:29 | XRR_ITS ---
PROCEDURE INFORMATION: Exam: XR Chest Exam date and time: 10/21/2025 10:48 AM Age: 80 years old Clinical indication: Other: Weakness; Additional info: Weakness; Multiple falls TECHNIQUE: Imaging protocol: Radiologic exam of the chest. Views: 1 view. COMPARISON: CR XR chest 1V portable [id number] 12/22/2024 4:41 AM FINDINGS: Lungs: Interval improved aeration of the lungs. No acute pulmonary pathology. Pleural spaces: No pleural effusion. Interval resolution of the left pleural effusion. Heart/Mediastinum: Cardiomediastinal contours accentuated by low lung volumes and AP technique. Bones/joints: Dextrocurvature of the lower thoracic spine. Intraperitoneal space: Right upper quadrant surgical clips noted. Other findings: Interval removal of the support lines. XR/XR chest 1V portable [id number] IMPRESSION: No acute pathology.
--- NOTE | 2025-10-21 10:42 | ECG_ITS ---
[facility]: [facility]25[facility]21 Pat Name: Lelia Mcguire Department: Room: Gender: Female Head Rose Grower: : 1945 Requested By: Dianne Salmeron Order Number: [id number] Reading MD: JAROD ONEILL Measurements Intervals [place] Rate: 65 P: 0 DC: 0 QRS: 87 QRSD: 83 T: 0 QT: 214 QTc: 223 Interpretive Statements ATRIAL FIBRILLATION SEPTAL MYOCARDIAL INFARCTION , PROBABLY OLD [40+ ms Q WAVE IN V1/V2] Compared to ECG 12/21/2024 12:58:29 Myocardial infarct finding now present T-wave abnormality no longer present Electronically Signed On 10-21-2025 18:38:51 COMPUTER TECHNICIAN by JAROD ONEILL [email or web address]
--- NOTE | 2025-10-21 10:52 | XRR_ITS ---
PROCEDURE INFORMATION: Exam: XR Pelvis Exam date and time: 10/21/2025 10:57 AM Age: 80 years old Clinical indication: Injury or trauma; Fall; Blunt trauma (contusions or hematomas); Bilateral; Coccyx TECHNIQUE: Imaging protocol: Radiologic exam of the pelvis. Views: 1 or 2 view. COMPARISON: CT pelvis con [id number] 03/07/2025 11:39 PM FINDINGS: Bones/joints: Severe right and moderate left hip degenerative change. Mild bilateral sacroiliac degenerative change. Incompletely imaged degenerative change of the lower lumbar spine. Soft tissues: Vascular calcifications noted in the soft tissues. Organs: Pelvic calcification consistent with a fibroid seen on prior CT. Other findings: Under penetrated exam consisting of single frontal view. XR/XR pelvis 1-2V* [id number] IMPRESSION: No acute pathology given limited technique.
--- NOTE | 2025-10-21 10:52 | ED_ITS ---
HPI - Fall 2 General: Chief Complaint: Fall Stated Complaint: falls; weakness Time Seen by Provider: 10/21/25 10:25 Source: patient and EMS Mode of arrival: EMS Limitations: no limitations History of Present Illness: 80-year-old female states that she had h ad a prolonged hospital stay and recently just got out of the care home facility roughly 3 to 4 weeks ago. States that since getting out she has been having increasing weakness. States she has had multiple falls at home since then. She states that she tried to go to the kitchen today with her walker and fell. She states that she feels like she is not able to take care of herself anymore. She denies any significant injuries from the falls denies hitting her head she denies any fevers or dysuria Related Data Home Medications ?Medication ?Instructions ?Recorded ?Confirmed cyanocobalamin (vitamin B-12) 1,000 mcg PO QPM 1 10/21/25 1,000 mcg tablet (Vitamin B-12) calcium carbonate 500 mg PO QPM 05/20/2210/21 cholecalciferol (vitamin D3) 50 50 mcg PO QPM 05/20/22 10/21/25 mcg (2,000 unit) tablet (Vitamin D3) acetaminophen 650 mg 650 mg PO Q12H 12/12/2405/10 tablet,extended release (Tylenol Arthritis Pain) escitalopram oxalate 10 mg tablet 10 mg PO DAILY 10/2110/21/25 olanzapine 10 mg tablet 10 mg PO DAILY 10/21/2505/10 Previous Rx's ?Medication ?Instructions ?Recorded cetirizine 10 mg tablet 10 mg PO BID PRN allergy sym ptoms 06/10/23 #180 tabs lisinopril 2.5 mg tablet 2.5 mg PO QAM #90 tabs 12/18 furosemide 20 mg tablet See Rx Instructions .Route 0 01/07/24 .COMPLEX #180 tabs hydrocodone 5 mg-acetaminophen 325 1 tab PO Q8H PRN pa in 7 days #20 01/07/24 mg tablet tabs rivaroxaban 20 mg tablet (Xarelto) See Rx Instructions .Route 01/07/24 .COMPLEX #90 tabs nitroglycerin 0.4 mg sublingual 0.4 mg sublingual Q5M PRN chest 08/24/24 tablet pain #25 tabs Allergies Allergy/AdvReac Type Severity Reaction Status Date / Time iodine Allergy Unknown ALGY-Bliste Verified 08/30/24 07:05 r metoprolol Allergy Unknown Unknown Verified 08/30/24 07:05 alcohol Allergy ALGY-Hives Verified 08/30/24 07:05 alfalfa Allergy ALGY-Rash Verified 08/30/24 07:05 aloe vera Allergy ALGY-Bliste Verified 08/30/24 07:05 r atenolol Allergy ALGY-Swell Verified 08/30/24 07:05 Lip/Tongue/Throat bamboo Allergy ALGY-Rash Verified 08/30/24 07:05 barley Allergy ALGY-Rash Verified 08/30/24 07:05 bran Allergy ALGY-Hives Verified 08/30/24 07:05 [place] Allergy ALGY-Hives Verified 08/30/24 07:05 clams Allergy ALGY-Difficulty Verified 08/30/24 07:05 Swallowing crab Allergy Unknown Verified 08/30/24 07:05 crayfish Allergy Unknown Verified 08/30/24 07:05 diphenhydramine (From Allergy ADR-Itching Verified 08/30/24 07:05 Benadryl) epinephrine Allergy ADR/ALGY-Pa Verified 08/30/24 07:05 lpitations grapefruit Allergy Unknown Verified 08/30/24 07:05 grass pollen Allergy ALGY-Rash Verified 08/30/24 07:05 juniper tar Allergy Unknown Verified 08/30/24 07:05 kiwi Allergy ALGY-Hives Verified 08/30/24 07:05 latex Allergy ALGY-Rash Verified 08/30/24 07:05 lavender (Lavandula Allergy ALGY-Rash Verified 08/30/24 07:05 angustifolia) lemon Allergy ALGY-Rash Verified 08/30/24 07:05 lemon oil Allergy ALGY-Rash Verified 08/30/24 07:05 licorice Allergy Unknown Verified 08/30/24 07:05 [place] Allergy Unknown Verified 08/30/24 07:05 molasses Allergy Unknown Verified 08/30/24 07:05 mold Allergy ALGY-Rash Verified 08/30/24 07:05 mussels Allergy Unknown Verified 08/30/24 07:05 nut - unspecified Allergy ALGY-Hives Verified 08/30/24 07:05 oats Allergy ALGY-Hives Verified 08/30/24 07:05 octopus Allergy Unknown Verified 08/30/24 07:05 orange Allergy ALGY-Rash Verified 08/30/24 07:05 oyster extract Allergy Unresponsiv Verified 08/30/24 07:05 e passion fruit Allergy Unknown Verified 08/30/24 07:05 scallops Allergy Unknown Verified 08/30/24 07:05 shellfish derived Allergy ALGY-Swell Verified 08/30/24 07:05 Lip/Tongue/Throat shrimp Allergy Unknown Verified 08/30/24 07:05 squid Allergy Unknown Verified 08/30/24 07:05 wheat Allergy ALGY-Hives Verified 08/30/24 07:05 shell fish Allergy Severe ALGY-Swell Uncoded 08/30/24 07:05 Lip/Tongue/Throat abolone Allergy Unknown Uncoded 08/30/24 07:05 anchovie Allergy ALGY-Hives Uncoded 08/30/24 07:05 antibacterial soap Allergy Unknown Uncoded 08/30/24 07:05 berries Allergy ALGY-Hives Uncoded 08/30/24 07:05 carob Allergy Unknown Uncoded 08/30/24 07:05 contrast dye Allergy ALGY-Difficulty Uncoded 08/30/24 07:05 Breathing gold Allergy Unknown Uncoded 08/30/24 07:05 hemp oil Allergy ALGY-Rash Uncoded 08/30/24 07:05 [place] Allergy Unknown Uncoded 08/30/24 07:05 lobster Allergy Unknown Uncoded 08/30/24 07:05 malt Allergy ALGY-Bliste Uncoded 08/30/24 07:05 r mesquite Allergy Unknown Uncoded 08/30/24 07:05 millet Allergy ALGY-Rash Uncoded 08/30/24 07:05 mink oil Allergy ALGY-Rash Uncoded 08/30/24 07:05 mola Allergy Unknown Uncoded 08/30/24 07:05 MSG Allergy Unknown Uncoded 08/30/24 07:05 prawn Allergy Unknown Uncoded 08/30/24 07:05 rye Allergy ALGY-Rash Uncoded 08/30/24 07:05 snail Allergy Unknown Uncoded 08/30/24 07:05 sorghum Allergy Unknown Uncoded 08/30/24 07:05 tangello Allergy Unresponsiv Uncoded 08/30/24 07:05 e tangerine Allergy Unknown Uncoded 08/30/24 07:05 [facility] sauce AdvReac Severe ALGY-Swell Uncoded 08/30/24 07:05 Lip/Tongue/Throat Review of Systems 2 Const: Reports: malaise PFSH ED 2 PFSH: Medical History Balance problem Weakness Asthma Osteoarthritis of left knee Statin intolerance Osteoarthritis of right hip severe on imaging; Hx of deep venous thrombosis right leg Chronic venous insufficiency of lower extremity R leg; hx of DVT this leg Disability of walking Aortic stenosis Osteoporosis didn't tolerate oral bisphosphonates; did prolia for 5 yrs; she doesn't want to do any more DEXAs Bradycardia sees cardio [facility] Carotid atherosclerosis bilateral mild on US 04/08 Chronic atrial fibrillation Chest pain Symptomatic bradycardia Anticoagulation adequate with anticoagulant therapy COPD (chronic obstructive pulmonary disease) Pulmonary arterial hypertension Sleep apnea not using CPAP; sleeps in recliner Hypertension CAD (coronary artery disease) seeing cardio in [place] Surgical History Status post laparoscopic cholecystectomy (03/06/21) H/O left knee surgery arthroscopic H/O right knee surgery arthroscopic H/O tubal ligation History of colonoscopy with polypectomy 2016 History of esophagogastroduodenoscopy (EGD) Family History Mother Diabetes CAD (coronary artery disease) Social History Smoking and tobacco/nicotine status: never used tobacco/nicotine Second hand smoke exposure: No Alcohol intake: never Substance/Drug Use: never Lives independently: Yes Household members: none Marital status: / Number of children: 3 Highest education level completed: Some College, No Degree Current occupational status: 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 Do you think of yourself as: Straight/Heterosexual Current gender identity: Female Female Reproductive History: Spontaneous abortions: No Physical Exam 2 Const: COMMON NORMALS: patient oriented x3 HENMT: COMMON NORMALS: normocephalic and atraumatic HEAD & SCALP: n ormocephalic and atraumatic Eye: COMMON NORMALS: Equal, round and reactive pupils present and EOMs intact bilaterally PUPIL: Yes Equal, round and reactive pupils present Neck/C-Spine: COMMON NORMALS: full ROM and supple Chest: COMMONS NORMALS: normal inspection of the chest and normal palpation of entire chest wall Resp: COMMON NORMALS: normal respiratory effort, No retractions, No use of accessory muscles and clear to auscultation bilaterally AUSCULTATION: clear to auscultation bilaterally Cardio: COMMON NORMALS: regular rate, regular rhythm and No murmurs present (Cardio) RATE: regular rate RHYTHM: regular rhythm GI: COMMON NORMALS: Normal to inspection, nondistended, normoactive bowel sounds present, Soft to palpation, non-tender and no masses PALPATION: Yes Soft to palpation Extremity: COMMON NORMALS: normal to inspection and full ROM Neuro: COMMON NORMALS: patient oriented x3, moves all extremities and no focal motor deficits Psych: COMMON NORMALS: mental status grossly normal, Normal thought process present and cooperative THOUGHT PROCESS: Normal thought process present Skin: COMMON NORMALS: no rashes or lesions noted and no wounds GENERAL SKIN EXAM: no rashes or lesions noted Course 2 Vital Signs: Vital signs: Vital Signs Temperature 97.9 F 10/21/25 10:28 Pulse Rate 62 10/21/25 11:53 Respiratory Rate 24 H 10/21/25 10:49 Blood Pressure 135/62 10/21/25 11:53 Pulse Oximetry 97 10/21/25 11:53 Oxygen Delivery [facility] Room Air 10/21/25 11:53 MDM - Fall Medical Decision Making 80-year-old female presents for generalized weakness along with frequent falls. Imaging including chest x-ray and head CT here showed no acute abnormalities blood work shows no significant abnormalities either. Patient states she lives home alone is not able to ambulate or take care of herself will admit for her frequent falls and generalized weakness EKG interpreted by me at 1042 shows A-fib heart rate [address] elevation QRS 83 QTc 226 Medical Records I reviewed the patient's medical records. Lab Data I reviewed the patient's lab results. 10/21/25 10:48 10/21/25 10:48 Radiology Impressions Chest X-Ray 10/21/25 10:29 IMPRESSION: No acute pathology. Head CT 10/21/25 10:29 IMPRESSION: No acute traumatic pathology or significant interval change. Pelvis X-Ray 10/21/25 10:52 IMPRESSION: No acute pathology given limited technique. Laboratory Results WBC 5.55 10^3/uL (3.29-11.43) 10/21/25 10:48 RBC 4.76 10^6/uL (3.85-5.65) 10/21/25 10:48 Hgb 13.70 g/dL (11.27-16.99) 10/21/25 10:48 Hct 43.1 % (36-47) 10/21/25 10:48 MCV 90.5 fl (85-98) 10/21/25 10:48 MCH 28.8 pg (27-33) 10/21/25 10:48 MCHC 31.8 g/dL (30-55) 10/21/25 10:48 RDW 14.6 % (12.1-15.1) 10/21/25 10:48 Plt Count 179 10^3/cmm (157-399) 10/21/25 10:48 MPV 9.8 fL (7.4-10.4) 10/21/25 10:48 Neut % (Auto) 72.1 % 10/21/25 10:48 Lymph % (Auto) 17.1 % 10/21/25 10:48 [place] % (Auto) 7.4 % 10/21/25 10:48 Eos % (Auto) 1.4 % 10/21/25 10:48 Baso % (Auto) 0.7 % 10/21/25 10:48 Neut # (Auto) 4.00 10^3/uL (1.8-7.7) 10/21/25 10:48 Lymph # (Auto) 1.0 10^3/uL (0.8-4.8) 10/21/25 10:48 [place] # (Auto) 0.4 10^3/uL (0.2-0.9) 10/21/25 10:48 Eos # (Auto) 0.1 10^3/uL (0.0-0.8) 10/21/25 10:48 Baso # (Auto) 0.0 10^3/uL (0.0-0.1) 10/21/25 10:48 Nucleated RBC % (auto) 0 % 10/21/25 10:48 Nucleated RBCs # 0.0 /100WBC 10/21/25 10:48 PT 14.90 SECONDS (12.1-14.9) 10/21/25 10:48 INR 1.10 (0.8-1.2) 10/21/25 10:48 Sodium 139 mmol/L (136-145) 10/21/25 10:48 Potassium 3.4 mmol/L (3.5-5.1) L 10/21/25 10:48 Chloride 99 mmol/L (98-107) 10/21/25 10:48 Carbon Dioxide 26 mmol/L (22-29) 10/21/25 10:48 Anion Gap 17.4 (5-19) 10/21/25 10:48 BUN 24 mg/dL (8-23) H 10/21/25 10:48 Creatinine 0.8 mg/dL (0.5-0.9) 10/21/25 10:48 GFR Calculation Not Reportable 10/21/25 10:48 Glucose 178 mg/dL (65-115) H 10/21/25 10:48 Calculated Osmolality 296 mOsm/kg (285-295) H 10/21/25 10:48 Calcium 9.5 mg/dL (8.5-10.5) 10/21/25 10:48 Total Bilirubin 1.1 mg/dL (0.15-1.2) 10/21/25 10:48 AST 25 U/L (0-32) 10/21/25 10:48 ALT 14 U/L (0-33) 10/21/25 10:48 Alkaline Phosphatase 86 U/L (35-105) 10/21/25 10:48 Total Protein 6.8 g/dL (6.6-8.7) 10/21/25 10:48 Albumin 4.1 g/dL (3.5-5.2) 10/21/25 10:48 Globulin 2.7 g/dL (1.3-4.6) 10/21/25 10:48 TSH 1.36 uIU/mL (0.27-4.20) 10/21/25 10:48 Urine Color Dark yellow (Yellow) A 10/21/25 11:42 Urine Appearance Clear (CLEAR) 10/21/25 11:42 Urine pH 5.5 (5-7) 10/21/25 11:42 Ur Specific [place] 1.031 (1.005-1.030) H 10/21/25 11:42 Urine Protein 1+ (Negative) A 10/21/25 11:42 Urine Glucose (UA) Negative (Normal) 10/21/25 11:42 Urine Ketones 1+ (Negative) H 10/21/25 11:42 Urine Blood Trace (Negative) A 10/21/25 11:42 Urine Nitrate Negative (Negative) 10/21/25 11:42 Urine Bilirubin Negative (Negative) 10/21/25 11:42 Urine Urobilinogen 1.0 mg/dL (Negative) 10/21/25 11:42 Ur Leukocyte Esterase Negative (Negative) 10/21/25 11:42 Urine RBC 6-10 /hpf (0-2) 10/21/25 11:42 Urine WBC 0-5 /hpf (0-5) 10/21/25 11:42 Ur Squamous Epith Cells 0-5 /hpf (0-5) 10/21/25 11:42 Amorphous Sediment Not Reportable 10/21/25 11:42 Urine Bacteria None seen /hpf (NONE) 10/21/25 11:42 Hyaline Casts 1.21 /lpf 10/21/25 11:42 All radiology interpretation(s) finalized by discharge Discharge Plan Discharge Patient Disposition: Admitted As Inpatient Clinical Impression: Generalized weakness, Frequent falls Condition: Stable Coding Level of Care Code ED Weight Yardage Checker for Isabel Ulloa
[2025-10-21 10:54] LABS: Hematocrit 43.1 % (36-47); Hemoglobin 13.70 g/dL (11.27-16.99); Mean Corpuscular HGB Conc 31.8 g/dL (30-55); Mean Corpuscular Hemoglobin 28.8 pg (27-33); Mean Corpuscular Volume 90.5 fl (85-98); Nucleated Red Blood Cells % 0 %; Platelet Count 179 10^3/cmm (157-399); Red Blood Count 4.76 10^6/uL (3.85-5.65); White Blood Count 5.55 10^3/uL (3.29-11.43)
[2025-10-21 11:11] LABS: INR 1.10 (0.8-1.2); Prothrombin Time 14.90 SECONDS (12.1-14.9)
[2025-10-21 11:28] LABS: Alanine Aminotransferase 14 U/L (0-33); Albumin Level 4.1 g/dL (3.5-5.2); Alkaline Phosphatase 86 U/L (35-105); Anion Gap 17.4 (5-19); Aspartate Amino Transferase 25 U/L (0-32); Blood Urea Nitrogen 24 mg/dL (8-23); Calcium 9.5 mg/dL (8.5-10.5); Carbon Dioxide 26 mmol/L (22-29); Chloride 99 mmol/L (98-107); Globulin 2.7 g/dL (1.3-4.6); Glucose 178 mg/dL (65-115); Osmolality Calculated 296 mOsm/kg (285-295); Potassium 3.4 mmol/L (3.5-5.1); Sodium 139 mmol/L (136-145); Thyroid Stimulating Hormone 1.36 uIU/mL (0.27-4.20); Total Protein 6.8 g/dL (6.6-8.7)
[2025-10-21 11:49] LABS: Glucose Urine UA Negative (Normal); Nitrate Urine Negative (Negative)
[2025-10-21 11:51] LABS: Add Urine Microscopic? YES
[2025-10-21 11:54] LABS: Specific Gravity, Urine 1.031 (1.005-1.030)
--- NOTE | 2025-10-21 12:22 | PC.PHAR ---
Patient states she was in the hospital for 9 months and she still has some of her medications. Patient agreed to most medications stated , so I left them on her list .
--- NOTE | 2025-10-21 13:02 | PM.HP ---
Providers/Chief Complaint Admitting Physician: Umer Lopez MD Primary Care Provider: Radha Clarke DO Chief Complaint: falls; weakness History of Present Illness Lelia Mcguire is a 80 year old female with a past medical history of chronic atrial fibrillation, pulmonary artery disease, coronary artery disease, asthma, obstructive sleep apnea, history of right lower extremity DVT, hypertension, CHF who presented to the ER stating bilateral lower extremity weakness and difficulty walking with multiple falls at home. Patient states that she has been in and out of the hospital over the last 9 months and just returned home approximately 3 weeks ago after completing treatment with shelter facility. Patient states that she has fallen in the last week approximately 3 times, and feels that she is unable to take care of herself at home. Patient states that he has not been eating or drinking well, she does have a growing blister on her right lower extremity with spreading redness. Patient denies current chest pain, shortness of breath, nausea, vomiting, diarrhea, abdominal pain, any significant injuries, recent illness, or syncope. Patient was found to have volume depletion but otherwise benign labs in the ER. Patient is admitted inpatient needing more than 2 midnight stay secondary to generalized weakness, falls, and cellulitis to the right lower extremity. Review of Systems General: Reports: 10 or more systems reviewed and unremarkable except in HPI and below Medications/Allergies Home Medications ?Medication ?Instructions ?Recorded ?Confirmed ?Last Taken ?Type cyanocobalamin (vitamin B-12) 1,000 mcg PO QPM 05/30/21 10/21/25 08/21/22 History 1,000 mcg tablet (Vitamin B-12) calcium carbonate 500 mg PO QPM 05/20/22 10/21/25 08/21/22 History cholecalciferol (vitamin D3) 50 50 mcg PO QPM 05/20/22 10/21/25 08/21/22 History mcg (2,000 unit) tablet (Vitamin D3) cetirizine 10 mg tablet 10 mg PO BID PRN allergy symptoms 06/10/23 10/21/25 Unknown Rx #180 tabs lisinopril 2.5 mg tablet 2.5 mg PO QAM #90 tabs 12/18/23 10/21/25 Unknown Rx furosemide 20 mg tablet See Rx Instructions .Route 01/07/24 10/21/25 Unknown Rx .COMPLEX #180 tabs hydrocodone 5 mg-acetaminophen 325 1 tab PO Q8H PRN pain 7 days #20 01/07/24 10/21/25 Unknown Rx mg tablet tabs rivaroxaban 20 mg tablet (Xarelto) See Rx Instructions .Route 01/07/24 10/21/25 Unknown Rx .COMPLEX #90 tabs nitroglycerin 0.4 mg sublingual 0.4 mg sublingual Q5M PRN chest 08/24/24 10/21/25 Unknown Rx tablet pain #25 tabs acetaminophen 650 mg 650 mg PO Q12H 12/12/24 10/21/25 Unknown History tablet,extended release (Tylenol Arthritis Pain) escitalopram oxalate 10 mg tablet 10 mg PO DAILY 10/21/25 10/21/25 Unknown History olanzapine 10 mg tablet 10 mg PO DAILY 10/21/25 10/21/25 Unknown History Allergies Allergy/AdvReac Type Severity Reaction Status Date / Time iodine Allergy Unknown ALGY-Bliste Verified 08/30/24 07:05 r metoprolol Allergy Unknown Unknown Verified 08/30/24 07:05 alcohol Allergy ALGY-Hives Verified 08/30/24 07:05 alfalfa Allergy ALGY-Rash Verified 08/30/24 07:05 aloe vera Allergy ALGY-Bliste Verified 08/30/24 07:05 r atenolol Allergy ALGY-Swell Verified 08/30/24 07:05 Lip/Tongue/Throat bamboo Allergy ALGY-Rash Verified 08/30/24 07:05 barley Allergy ALGY-Rash Verified 08/30/24 07:05 bran Allergy ALGY-Hives Verified 08/30/24 07:05 [place]ivatives Allergy ALGY-Hives Verified 08/30/24 07:05 clams Allergy ALGY-Difficulty Verified 08/30/24 07:05 Swallowing crab Allergy Unknown Verified 08/30/24 07:05 crayfish Allergy Unknown Verified 08/30/24 07:05 diphenhydramine (From Allergy ADR-Itching Verified 08/30/24 07:05 Benadryl) epinephrine Allergy ADR/ALGY-Pa Verified 08/30/24 07:05 lpitations grapefruit Allergy Unknown Verified 08/30/24 07:05 grass pollen Allergy ALGY-Rash Verified 08/30/24 07:05 juniper tar Allergy Unknown Verified 08/30/24 07:05 kiwi Allergy ALGY-Hives Verified 08/30/24 07:05 latex Allergy ALGY-Rash Verified 08/30/24 07:05 lavender (Lavandula Allergy ALGY-Rash Verified 08/30/24 07:05 angustifolia) lemon Allergy ALGY-Rash Verified 08/30/24 07:05 lemon oil Allergy ALGY-Rash Verified 08/30/24 07:05 licorice Allergy Unknown Verified 08/30/24 07:05 [place] Allergy Unknown Verified 08/30/24 07:05 molasses Allergy Unknown Verified 08/30/24 07:05 mold Allergy ALGY-Rash Verified 08/30/24 07:05 mussels Allergy Unknown Verified 08/30/24 07:05 nut - unspecified Allergy ALGY-Hives Verified 08/30/24 07:05 oats Allergy ALGY-Hives Verified 08/30/24 07:05 octopus Allergy Unknown Verified 08/30/24 07:05 orange Allergy ALGY-Rash Verified 08/30/24 07:05 oyster extract Allergy Unresponsiv Verified 08/30/24 07:05 e passion fruit Allergy Unknown Verified 08/30/24 07:05 scallops Allergy Unknown Verified 08/30/24 07:05 shellfish derived Allergy ALGY-Swell Verified 08/30/24 07:05 Lip/Tongue/Throat shrimp Allergy Unknown Verified 08/30/24 07:05 squid Allergy Unknown Verified 08/30/24 07:05 wheat Allergy ALGY-Hives Verified 08/30/24 07:05 shell fish Allergy Severe ALGY-Swell Uncoded 08/30/24 07:05 Lip/Tongue/Throat abolone Allergy Unknown Uncoded 08/30/24 07:05 anchovie Allergy ALGY-Hives Uncoded 08/30/24 07:05 antibacterial soap Allergy Unknown Uncoded 08/30/24 07:05 berries Allergy ALGY-Hives Uncoded 08/30/24 07:05 carob Allergy Unknown Uncoded 08/30/24 07:05 contrast dye Allergy ALGY-Difficulty Uncoded 08/30/24 07:05 Breathing gold Allergy Unknown Uncoded 08/30/24 07:05 hemp oil Allergy ALGY-Rash Uncoded 08/30/24 07:05 [place] Allergy Unknown Uncoded 08/30/24 07:05 lobster Allergy Unknown Uncoded 08/30/24 07:05 malt Allergy ALGY-Bliste Uncoded 08/30/24 07:05 r mesquite Allergy Unknown Uncoded 08/30/24 07:05 millet Allergy ALGY-Rash Uncoded 08/30/24 07:05 mink oil Allergy ALGY-Rash Uncoded 08/30/24 07:05 mola Allergy Unknown Uncoded 08/30/24 07:05 MSG Allergy Unknown Uncoded 08/30/24 07:05 prawn Allergy Unknown Uncoded 08/30/24 07:05 rye Allergy ALGY-Rash Uncoded 08/30/24 07:05 snail Allergy Unknown Uncoded 08/30/24 07:05 sorghum Allergy Unknown Uncoded 08/30/24 07:05 tangello Allergy Unresponsiv Uncoded 08/30/24 07:05 e tangerine Allergy Unknown Uncoded 08/30/24 07:05 worcestershire sauce AdvReac Severe ALGY-Swell Uncoded 08/30/24 07:05 Lip/Tongue/Throat PFSH Acute PFSH: Medical History (Updated 10/21/25 @ 14:30 by Belgica Pedro NP) Balance problem Weakness Asthma Osteoarthritis of left knee Statin intolerance Osteoarthritis of right hip severe on imaging; Hx of deep venous thrombosis right leg Chronic venous insufficiency of lower extremity R leg; hx of DVT this leg Disability of walking Aortic stenosis Osteoporosis didn't tolerate oral bisphosphonates; did prolia for 5 yrs; she doesn't want to do any more DEXAs Bradycardia sees cardio [place] [facility] Carotid atherosclerosis bilateral mild on US 04/08 Chronic atrial fibrillation Chest pain Symptomatic bradycardia Anticoagulation adequate with anticoagulant therapy COPD (chronic obstructive pulmonary disease) Pulmonary arterial hypertension Sleep apnea not using CPAP; sleeps in recliner Hypertension CAD (coronary artery disease) seeing cardio in [place] Surgical History Status post laparoscopic cholecystectomy (03/06/21) H/O left knee surgery arthroscopic H/O right knee surgery arthroscopic H/O tubal ligation History of colonoscopy with polypectomy 2016 History of esophagogastroduodenoscopy (EGD) Family History Mother Diabetes CAD (coronary artery disease) Social History Smoking and tobacco/nicotine status: never used tobacco/nicotine Second hand smoke exposure: No Alcohol intake: never Substance/Drug Use: never Lives independently: Yes Household members: none Marital status: / Number of children: 3 Highest education level completed: Some College, No Degree Current occupational status: 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 Const: COMMON NORMALS: patient oriented x3 HENMT: COMMON NORMALS: normocephalic HEAD & SCALP: normocephalic FACE & SINUS: normal facial exam TEETH & GINGIVA: Yes poor dentition (Missing many teeth and remaining teeth in poor repair) Eye: COMMON NORMALS: Equal, round and reactive pupils present Neck/C-Spine: COMMON NORMALS: no lymphadenopathy and supple Resp: COMMON NORMALS: normal respiratory effort and clear to auscultation bilaterally Cardio: COMMON NORMALS: S1 normal heart sound present and S2 normal heart sound present JUGULAR VENOUS DISTENTION: no JVD GI: COMMON NORMALS: Normal to inspection, nondistended, normoactive bowel sounds present Extremity: NARRATIVE EXTREMITY EXAM: Right lower extremity with erythema, flaking skin, large blister approximately 1 inch in diameter elevated approximately 3 cm. Bilateral 2+ dependent edema. Generalized weakness in all extremities. Neuro: COMMON NORMALS: patient oriented x3 and CN's II-XII intact bilaterally GAIT: Yes Unable to assess gait Psych: COMMON NORMALS: Normal thought process present, cooperative, normal affect and speech normal Skin: NARRATIVE SKIN EXAM: As noted in extremity exam, right lower extremity with erythema and blister, bilateral dependent edema Data 10/21/25 10:48 12/06/25 10:48 A&P Assessment and plan 1. Generalized weakness: 2. Cellulitis of right lower extremity: 3. Frequent falls: 4. Chronic anticoagulation: 5. ELBA (obstructive sleep apnea): 6. Hx of deep venous thrombosis: 7. Primary hypertension: 8. Longstanding persistent atrial fibrillation: 9. Coronary artery disease involving [place] coronary artery of [place] heart without angina pectoris: 10. Mild episode of recurrent major depressive disorder: Plan: Generalized weakness Frequent falls - Has fallen approx 3 times in the last week, states walking is very difficult and she is very week - Fall precautions - Greatly appreciate PT/OT evaluation and recommendations, these services may not be available until Thursday - Consulted Case Management for placement, patient states she can not care for herself at home Cellulitis, right lower extremity - Pending Blood Culture x 2 - Initiated on IV Rocephin 1g q24hr Longstanding atrial fibrillation Chronic anticoagulation History of DVT - Rate controlled - Resume home medication Xarelto Coronary artery disease Hypertension Hyperlipidemia - Admitting Blood pressure 137/75 - Resume home dosing of Lisinopril Depression - Continue home medications Lexapro, Zyprexa ELBA - Does not use CPAP - PRN oxygen and supportive care as needed VTE PPX: Xarelto GI PPX: Protonix Code Status: Full Code PDMP PDMP Reviewed: Not Reviewed Attestations Medical Necessity Statement*: Patient admitted inpatient expecting greater than 2 midnight stay due to generalized weakness and cellulitis necessitating PT/OT, IV antibiotic therapy, and complex medical management. and High Time for a total of 78 minutes, includes reviewing past or interval history, examining/interviewing patient, placing orders, counseling patient/family/other support, updating patient/family/other support, discussing plan of care with staff, communicating with other healthcare providers, documenting encounter and coordinating care Diagnoses Generalized weakness R53.1 Cellulitis of right lower extremity L03.115 Site of cellulitis: extremity Site of cellulitis of extremity: lower extremity Laterality: right Frequent falls R29.6 Chronic anticoagulation Z79.01 ELBA (obstructive sleep apnea) G47.33 Hx of deep venous thrombosis Z86.718 Primary hypertension I10 Hypertension type: primary hypertension Longstanding persistent atrial fibrillation I48.11 Atrial fibrillation type: longstanding persistent Coronary artery disease involving [place] coronary artery of [place] heart without angina pectoris I25.10 Coronary Disease-Associated Artery/Lesion type: [place] artery [place] vs. transplanted heart: [place] heart Associated angina: without angina Mild episode of recurrent major depressive disorder F33.0 Depression Type: major depressive disorder Major depression recurrence: recurrent Active/Remission status: currently active Major depression episode severity: mild
[2025-10-21] MEDS: sodium chlor 0.9% + KCl 40 mEq 40 MEQ/1,000 ML BAG 100 MEQ IV (15:59)
[2025-10-21] MEDS: cefTRIAXone 1,000 mg SDV 1000 MG IVP (16:00)
[2025-10-22] VITALS (7 sets, daily range): BP systolic 147–192; BP diastolic 56–79; PULSE 53–67; RESP 16–18; TEMP 36.6–36.9; O2SAT 94–98
[2025-10-22] MEDS: sodium chlor 0.9% + KCl 40 mEq 40 MEQ/1,000 ML BAG 100 MEQ IV (02:25)
[2025-10-22 04:06] LABS: Hematocrit 38.7 % (36-47); Hemoglobin 12.40 g/dL (11.27-16.99); Mean Corpuscular HGB Conc 32.0 g/dL (30-55); Mean Corpuscular Hemoglobin 29.3 pg (27-33); Mean Corpuscular Volume 91.5 fl (85-98); Nucleated Red Blood Cells % 0 %; Platelet Count 141 10^3/cmm (157-399); Red Blood Count 4.23 10^6/uL (3.85-5.65); White Blood Count 4.88 10^3/uL (3.29-11.43)
[2025-10-22 04:32] LABS: Alanine Aminotransferase 11 U/L (0-33); Albumin Level 3.6 g/dL (3.5-5.2); Alkaline Phosphatase 75 U/L (35-105); Anion Gap 15.4 (5-19); Aspartate Amino Transferase 22 U/L (0-32); Blood Urea Nitrogen 19 mg/dL (8-23); Calcium 9.0 mg/dL (8.5-10.5); Carbon Dioxide 25 mmol/L (22-29); Chloride 105 mmol/L (98-107); Globulin 2.5 g/dL (1.3-4.6); Glucose 135 mg/dL (65-115); Magnesium 2.0 mg/dL (1.7-2.3); Osmolality Calculated 296 mOsm/kg (285-295); Potassium 4.4 mmol/L (3.5-5.1); Sodium 141 mmol/L (136-145); Total Protein 6.1 g/dL (6.6-8.7)
--- NOTE | 2025-10-22 10:26 | P.PN_ITS ---
Subjective 2 Subjective: I into the room when patient was having her fourth attempt at a Gregory catheter. This time was successful. Patient states that she is uncomfortable in the genitourinary area. And otherwise she always has knee pain from arthritis. She discussed with me how she wants to make sure she is listed as a DO NOT RESUSCITATE. And that we communicate with her family. She is also aware that she will need permanent detention placement after multiple falls at home with recent discharge from correction care Medications: Reviewed: Yes Vitals/I&O/Wt Last Vital Signs Temp 97.8 F 10/22/25 07:18 Pulse 58 L 10/22/25 07:18 Resp 16 10/22/25 07:18 BP 152/64 10/22/25 07:18 Pulse Ox 95 10/22/25 07:18 O2 Del Method Room Air 10/22/25 07:18 10/21/25 10/22/25 10/22/25 22:59 06:59 14:59 Intake Total 357.5 / 1357.5 1000 / 2357.5 Output Total 300 / 300 Balance 57.5 / 1057.5 1000 / 2057.5 Weight last 48 hrs Weight 79.787 kg Weight 74.389 kg Weight 74.389 kg Physical Exam 2 Narrative: Patient is alert and oriented to person place time and situation she is in no acute distress. Heart is regular normal S1-S2 soft systolic murmur auscultated Lungs are clear to auscultation Abdomen soft nontender nondistended positive bowel sounds Extremities right lower extremity with edema mild erythema and mild warmth. She had a blister that has opened. . Patient has moderate to severe erythema of the genitourinary area including vulva and intertriginous area of the lower abdomen Urinary Catheter Management: Gregory: Cath Placed During This Visit: yes Urinary Catheter Date of Insertion: 10/22/25 Data 10/22/25 03:20 10/22/25 03:20 Micro: Microbiology 10/21/25 16:04 Blood Culture - Preliminary Blood SPECIMEN COLLECTED 10/21/25 16:03 Blood Culture - Preliminary Blood SPECIMEN COLLECTED A&P Assessment and plan 1. Generalized weakness: 2. Cellulitis of right lower extremity: 3. Frequent falls: 4. Chronic anticoagulation: 5. ELBA (obstructive sleep apnea): 6. Hx of deep venous thrombosis: 7. Primary hypertension: 8. Longstanding persistent atrial fibrillation: 9. Coronary artery disease involving [place] coronary artery of [place] heart without angina pectoris: 10. Mild episode of recurrent major depressive disorder: 11. Yeast infection involving the vagina and surrounding area: Plan: Generalized weakness Frequent falls - PT OT evaluation - Patient already agreement for permanent detention placement. -Case management consulted Cellulitis, right lower extremity - Pending Blood Culture x 2 - IV Rocephin 1g q24hr Longstanding atrial fibrillation Chronic anticoagulation History of DVT - Rate controlled - Resume home medication Xarelto Coronary artery disease Hypertension Hyperlipidemia - Admitting Blood pressure 137/75 - Resume home dosing of Lisinopril Depression - Continue home medications Lexapro, Zyprexa ELBA - Does not use CPAP - PRN oxygen and supportive care as needed Urinary retention - Gregory placed. - Will start Flomax Vaginal and cutaneous yeast infection - Diflucan 200 mg x 7 days - Nystatin cream to area VTE PPX: Xarelto GI PPX: Not Code Status: Discussed with patient and she request DNR status. Her advance directives of her in our electronic health record dated 10/24/2025 despite the fact that it is 10/22/2025 today. She designates her niece still her daughter in [facility] to be her DPOA and requests DNR status and would not want artificially supplied nutrition and hydration. Thus I will change CODE STATUS and abdomen out of house DNR form to her paperwork that we will go with her to detention PDMP PDMP Reviewed: Not Reviewed Attestations 2 Medical Necessity Statement*: Patient admitted inpatient expecting greater than 2 midnight stay due to generalized weakness and cellulitis necessitating PT/OT, IV antibiotic therapy, and complex medical management. Coding Level of Care Code Acute Code for Chg Fwd Diagnoses Generalized weakness R53.1 Cellulitis of right lower extremity L03.115 Laterality: right Site of cellulitis: extremity Site of cellulitis of extremity: lower extremity Frequent falls R29.6 Chronic anticoagulation Z79.01 ELBA (obstructive sleep apnea) G47.33 Hx of deep venous thrombosis Z86.718 Primary hypertension I10 Hypertension type: primary hypertension Longstanding persistent atrial fibrillation I48.11 Atrial fibrillation type: longstanding persistent Coronary artery disease involving [place] coronary artery of [place] heart without angina pectoris I25.10 Associated angina: without angina Coronary Disease-Associated Artery/Lesion type: [place] artery [place] vs. transplanted heart: [place] heart Mild episode of recurrent major depressive disorder F33.0 Active/Remission status: currently active Depression Type: major depressive disorder Major depression episode severity: mild Major depression recurrence: recurrent Yeast infection involving the vagina and surrounding area B37.31
[2025-10-22] MEDS: cefTRIAXone 1,000 mg SDV 1000 MG IVP (13:39)
[2025-10-22] MEDS: ondansetron 2 mg/ML SDV 2 mL 4 MG IVP (22:32)
[2025-10-23] VITALS (7 sets, daily range): BP systolic 129–185; BP diastolic 53–78; PULSE 52–58; RESP 16–18; TEMP 36.8–36.9; O2SAT 91–96
[2025-10-23 04:15] LABS: Anion Gap 12.8 (5-19); Blood Urea Nitrogen 16 mg/dL (8-23); Calcium 8.9 mg/dL (8.5-10.5); Carbon Dioxide 26 mmol/L (22-29); Chloride 101 mmol/L (98-107); Glucose 113 mg/dL (65-115); Osmolality Calculated 284 mOsm/kg (285-295); Potassium 3.8 mmol/L (3.5-5.1); Sodium 136 mmol/L (136-145)
--- NOTE | 2025-10-23 10:11 | PC.SOCIAL ---
IMM Update pg 2 of IMM Updated and reviewed w/ patient. Copy provided and copy dated, initialed and placed in chart.
[2025-10-23] MEDS: cefTRIAXone 1,000 mg SDV 1000 MG IVP (13:57)
--- NOTE | 2025-10-23 16:28 | PM.PN ---
Subjective Subjective: Hospital course, labs appreciated. Today morning patient seen sitting comfortably in bed. Worked with physical therapy. Denies any nausea, vomiting, headache. Medications: Reviewed: Yes Vitals/I&O/Wt Last Vital Signs Temp 98.2 F 10/23/25 16:00 Pulse 58 L 10/23/25 16:00 Resp 18 10/23/25 16:00 BP 163/63 10/23/25 16:00 Pulse Ox 96 10/23/25 16:00 O2 Del Method Room Air 10/23/25 16:00 10/23/25 10/23/25 10/23/25 06:59 14:59 22:59 Intake Total 200 / 2400 360 / 360 Output Total 1650 / 1650 Balance 200 / 700 360 / 360 -1650 / -1290 Weight last 48 hrs Weight 78.727 kg Weight 79.787 kg Physical Exam Narrative: Patient is alert and oriented to person place time and situation she is in no acute distress. Heart is regular normal S1-S2 soft systolic murmur auscultated Lungs are clear to auscultation Abdomen soft nontender nondistended positive bowel sounds Extremities right lower extremity with edema mild erythema and mild warmth. She had a blister that has opened. . Patient has moderate to severe erythema of the genitourinary area including vulva and intertriginous area of the lower abdomen Urinary Catheter Management: Gregory: Cath Placed During This Visit: yes Reason for Continuing Indwelling Catheter: Acute Urinary Retention or Obstruction Urinary Catheter Date of Insertion: 10/22/25 Data 10/22/25 03:20 10/23/25 03:06 Micro: Microbiology 10/21/25 16:04 Blood Culture - Preliminary Blood NEGATIVE TO DATE 10/21/25 16:03 Blood Culture - Preliminary Blood NEGATIVE TO DATE A&P Assessment and plan 1. Generalized weakness: 2. Cellulitis of right lower extremity: 3. Frequent falls: 4. Chronic anticoagulation: 5. ELBA (obstructive sleep apnea): 6. Hx of deep venous thrombosis: 7. Primary hypertension: 8. Longstanding persistent atrial fibrillation: 9. Coronary artery disease involving [place] coronary artery of [place] heart without angina pectoris: 10. Mild episode of recurrent major depressive disorder: 11. Yeast infection involving the vagina and surrounding area: 12. DNR (do not resuscitate): 13. Chronic venous insufficiency of lower extremity: 14. [place] intertrigo: Plan: Generalized weakness Frequent falls - PT OT evaluation - Patient already agreement for permanent penitentiary placement. -Case management consulted Cellulitis, right lower extremity - Pending Blood Culture x 2 - IV Rocephin 1g q24hr Longstanding atrial fibrillation Chronic anticoagulation History of DVT - Rate controlled - Resume home medication Xarelto Coronary artery disease Hypertension Hyperlipidemia - Admitting Blood pressure 137/75 - Resume home dosing of Lisinopril Depression - Continue home medications Lexapro, Zyprexa ELBA - Does not use CPAP - PRN oxygen and supportive care as needed Urinary retention - Gregory placed. - Will start Flomax Vaginal and cutaneous yeast infection - Diflucan 200 mg x 7 days - Nystatin cream to area VTE PPX: Xarelto GI PPX: Protonix. Code Status: DNR/DNI. Plan for the day: Continue with IV ceftriaxone with concern for cellulitis. Switch nystatin powder from cream. Continue fluconazole to finish a 7-day course. Out of bed to chair. Continue with physical therapy. Monitor blood cultures. Goal blood pressure less than 140/90 mmHg. Voiding trial. Continue with Flomax. PDMP PDMP Reviewed: Not Reviewed Attestations Medical Necessity Statement*: Requires further hospitalization while safe discharge planning is sought in a patient with concern for weakness due to cellulitis, urinary retention Diagnoses Generalized weakness R53.1 Cellulitis of right lower extremity L03.115 Site of cellulitis: extremity Site of cellulitis of extremity: lower extremity Laterality: right Frequent falls R29.6 Chronic anticoagulation Z79.01 ELBA (obstructive sleep apnea) G47.33 Hx of deep venous thrombosis Z86.718 Primary hypertension I10 Hypertension type: primary hypertension Longstanding persistent atrial fibrillation I48.11 Atrial fibrillation type: longstanding persistent Coronary artery disease involving [place] coronary artery of [place] heart without angina pectoris I25.10 Coronary Disease-Associated Artery/Lesion type: [place] artery [place] vs. transplanted heart: [place] heart Associated angina: without angina Mild episode of recurrent major depressive disorder F33.0 Depression Type: major depressive disorder Major depression recurrence: recurrent Active/Remission status: currently active Major depression episode severity: mild Yeast infection involving the vagina and surrounding area B37.31 DNR (do not resuscitate) Z66 Chronic venous insufficiency of lower extremity I87.2 [place] intertrigo B37.2
[2025-10-24] VITALS: BP 159/63; PULSE 57; RESP 17; TEMP 36.8; O2SAT 94
[2025-10-24 03:19] VITALS: BP 148/62
[2025-10-24 03:39] VITALS: BP 148/62; PULSE 57; RESP 16; TEMP 36.5; O2SAT 94
[2025-10-24 05:29] LABS: Hematocrit 36.8 % (36-47); Hemoglobin 12.20 g/dL (11.27-16.99); Mean Corpuscular HGB Conc 33.2 g/dL (30-55); Mean Corpuscular Hemoglobin 30.0 pg (27-33); Mean Corpuscular Volume 90.4 fl (85-98); Nucleated Red Blood Cells % 0 %; Platelet Count 158 10^3/cmm (157-399); Red Blood Count 4.07 10^6/uL (3.85-5.65); White Blood Count 6.14 10^3/uL (3.29-11.43)
[2025-10-24 05:45] LABS: Alanine Aminotransferase 10 U/L (0-33); Albumin Level 3.4 g/dL (3.5-5.2); Alkaline Phosphatase 71 U/L (35-105); Anion Gap 12.7 (5-19); Aspartate Amino Transferase 20 U/L (0-32); Blood Urea Nitrogen 15 mg/dL (8-23); Calcium 9.1 mg/dL (8.5-10.5); Carbon Dioxide 28 mmol/L (22-29); Chloride 101 mmol/L (98-107); Globulin 2.3 g/dL (1.3-4.6); Glucose 116 mg/dL (65-115); Osmolality Calculated 288 mOsm/kg (285-295); Potassium 3.7 mmol/L (3.5-5.1); Sodium 138 mmol/L (136-145); Total Protein 5.7 g/dL (6.6-8.7)
[2025-10-24 07:27] VITALS: BP 146/58; PULSE 58; RESP 17; TEMP 36.4; O2SAT 95
--- NOTE | 2025-10-24 08:43 | P.DS_ITS ---
Discharge Providers Date of Admission: 10/21/25 12:07 Date of Discharge: October 24, 2025 Attending Provider at Admission: Umer Lopez MD Attending Provider at Discharge: Marco Bender MD Primary Care Provider: Radha Clarke DO Diagnoses at Discharge Discharge Diagnosis 1. Generalized weakness: 2. Cellulitis of right lower extremity: 3. Frequent falls: 4. Chronic anticoagulation: 5. ELBA (obstructive sleep apnea): 6. Hx of deep venous thrombosis: 7. Primary hypertension: 8. Longstanding persistent atrial fibrillation: 9. Coronary artery disease involving [place] coronary artery of [place] heart without angina pectoris: 10. Mild episode of recurrent major depressive disorder: 11. Yeast infection involving the vagina and surrounding area: 12. DNR (do not resuscitate): 13. Chronic venous insufficiency of lower extremity: 14. Candidal intertrigo: Reason for Visit Reason for Visit: falls; weakness Brief History: Per HPI Lelia Mcguire is a 80 year old female with a past medical history of chronic atrial fibrillation, pulmonary artery disease, coronary artery disease, asthma, obstructive sleep apnea, history of right lower extremity DVT, hypertension, CHF who presented to the ER stating bilateral lower extremity weakness and difficulty walking with multiple falls at home. Patient states that she has been in and out of the hospital over the last 9 months and just returned home approximately 3 weeks ago after completing treatment [facility]. Patient states that she has fallen in the last week approximately 3 times, and feels that she is unable to take care of herself at home. Patient states that he has not been eating or drinking well, she does have a growing blister on her right lower extremity with spreading redness. Patient denies current chest pain, shortness of breath, nausea, vomiting, diarrhea, abdominal pain, any significant injuries, recent illness, or syncope. Patient was found to have volume depletion but otherwise benign labs in the ER. Patient is admitted inpatient needing more than 2 midnight stay secondary to generalized weakness, falls, and cellulitis to the right lower extremity. Hospital Course Hospital Course Patient was admitted to the hospital further evaluation and management of generalized weakness and concern for right lower limb cellulitis with frequent falls at home. She was started on broad-spectrum and IV antibiotics. Hospitalization was complicated by her developing urinary retention for which she required Gregory catheterization and was started on Flomax. She passed voiding trial. Safe discharge plan were discussed in detail with the patient and she requested to be transition to SNF. She has been discharged back to SNF in hemodynamically stable condition for rehabitation versus long-term placement on oral antibiotics for 5 more days. During hospitalization her home dose of lisinopril was adjusted to 10 mg oral daily. Physical Exam 2 Narrative: Patient is alert and oriented to person place time and situation she is in no acute distress. Heart is regular normal S1-S2 soft systolic murmur auscultated Lungs are clear to auscultation Abdomen soft nontender nondistended positive bowel sounds Extremities right lower extremity with edema mild erythema and mild warmth. She had a blister that has opened. . Patient has moderate to severe erythema of the genitourinary area including vulva and intertriginous area of the lower abdomen Urinary Catheter Management: Gregory: Cath Placed During This Visit: yes, but has since been removed by the nurse Reason for Continuing Indwelling Catheter: Decision to DC Catheter Urinary Catheter Date of Insertion: 10/22/25 Date Urinary Catheter Removed: 10/23/25 Time Urinary Catheter Discontinued: 14:25 Discharge Data Studies Completed and Pending Completed Studies During Hospitalization Category Date Time Status CT head wo con* [id number] Stat Cat Scan 10/21/25 10:29 Completed XR chest 1V portable [id number] Stat Exams 10/21/25 10:29 Completed XR pelvis 1-2V* [id number] Stat Exams 10/21/25 10:52 Completed Pending at discharge Category Date Time Status Blood Culture Stat Lab 10/21/25 16:04 Results Radiology Impressions Chest X-Ray 10/21/25 10:29 IMPRESSION: No acute pathology. Head CT 10/21/25 10:29 IMPRESSION: No acute traumatic pathology or significant interval change. Pelvis X-Ray 10/21/25 10:52 IMPRESSION: No acute pathology given limited technique. Microbiology 10/21/25 16:04 Blood Blood Culture - Preliminary NEGATIVE TO DATE 10/21/25 16:03 Blood Blood Culture - Preliminary NEGATIVE TO DATE Laboratory Results WBC 6.14 10^3/uL (3.29-11.43) 10/24/25 05:03 RBC 4.07 10^6/uL (3.85-5.65) 10/24/25 05:03 Hgb 12.20 g/dL (11.27-16.99) 10/24/25 05:03 Hct 36.8 % (36-47) 10/24/25 05:03 MCV 90.4 fl (85-98) 10/24/25 05:03 MCH 30.0 pg (27-33) 10/24/25 05:03 MCHC 33.2 g/dL (30-55) 10/24/25 05:03 RDW 14.5 % (12.1-15.1) 10/24/25 05:03 Plt Count 158 10^3/cmm (157-399) 10/24/25 05:03 MPV 10.3 fL (7.4-10.4) 10/24/25 05:03 Neut % (Auto) 68.0 % 10/24/25 05:03 Lymph % (Auto) 18.7 % 10/24/25 05:03 [place] % (Auto) 9.8 % 10/24/25 05:03 Eos % (Auto) 2.0 % 10/24/25 05:03 Baso % (Auto) 0.5 % 10/24/25 05:03 Neut # (Auto) 4.18 10^3/uL (1.8-7.7) 10/24/25 05:03 Lymph # (Auto) 1.2 10^3/uL (0.8-4.8) 10/24/25 05:03 [place] # (Auto) 0.6 10^3/uL (0.2-0.9) 10/24/25 05:03 Eos # (Auto) 0.1 10^3/uL (0.0-0.8) 10/24/25 05:03 Baso # (Auto) 0.0 10^3/uL (0.0-0.1) 10/24/25 05:03 Nucleated RBC % (auto) 0 % 10/24/25 05:03 Nucleated RBCs # 0.0 /100WBC 10/24/25 05:03 PT 14.90 SECONDS (12.1-14.9) 10/21/25 10:48 INR 1.10 (0.8-1.2) 10/21/25 10:48 Sodium 138 mmol/L (136-145) 10/24/25 05:03 Potassium 3.7 mmol/L (3.5-5.1) 10/24/25 05:03 Chloride 101 mmol/L (98-107) 10/24/25 05:03 Carbon Dioxide 28 mmol/L (22-29) 10/24/25 05:03 Anion Gap 12.7 (5-19) 10/24/25 05:03 BUN 15 mg/dL (8-23) 10/24/25 05:03 Creatinine 0.7 mg/dL (0.5-0.9) 10/24/25 05:03 GFR Calculation Not Reportable 10/24/25 05:03 Glucose 116 mg/dL (65-115) H 10/24/25 05:03 Calculated Osmolality 288 mOsm/kg (285-295) 10/24/25 05:03 Calcium 9.1 mg/dL (8.5-10.5) 10/24/25 05:03 Magnesium 2.0 mg/dL (1.7-2.3) 10/22/25 03:20 Total Bilirubin 0.6 mg/dL (0.15-1.2) 10/24/25 05:03 AST 20 U/L (0-32) 10/24/25 05:03 ALT 10 U/L (0-33) 10/24/25 05:03 Alkaline Phosphatase 71 U/L (35-105) 10/24/25 05:03 Total Protein 5.7 g/dL (6.6-8.7) L 10/24/25 05:03 Albumin 3.4 g/dL (3.5-5.2) L 10/24/25 05:03 Globulin 2.3 g/dL (1.3-4.6) 10/24/25 05:03 TSH 1.36 uIU/mL (0.27-4.20) 10/21/25 10:48 Urine Color Dark yellow (Yellow) A 10/21/25 11:42 Urine Appearance Clear (CLEAR) 10/21/25 11:42 Urine pH 5.5 (5-7) 10/21/25 11:42 Ur Specific [place] 1.031 (1.005-1.030) H 10/21/25 11:42 Urine Protein 1+ (Negative) A 10/21/25 11:42 Urine Glucose (UA) Negative (Normal) 10/21/25 11:42 Urine Ketones 1+ (Negative) H 10/21/25 11:42 Urine Blood Trace (Negative) A 10/21/25 11:42 Urine Nitrate Negative (Negative) 10/21/25 11:42 Urine Bilirubin Negative (Negative) 10/21/25 11:42 Urine Urobilinogen 1.0 mg/dL (Negative) 10/21/25 11:42 Ur Leukocyte Esterase Negative (Negative) 10/21/25 11:42 Urine RBC 6-10 /hpf (0-2) 10/21/25 11:42 Urine WBC 0-5 /hpf (0-5) 10/21/25 11:42 Ur Squamous Epith Cells 0-5 /hpf (0-5) 10/21/25 11:42 Amorphous Sediment Not Reportable 10/21/25 11:42 Urine Bacteria None seen /hpf (NONE) 10/21/25 11:42 Hyaline Casts 1.21 /lpf 10/21/25 11:42 Vitals Last Vital Signs Temp 97.6 F 10/24/25 07:27 Pulse 58 L 10/24/25 07:27 Resp 17 10/24/25 07:27 BP 146/58 10/24/25 07:27 Pulse Ox 95 10/24/25 07:27 O2 Del Method Room Air 10/24/25 07:27 Discharge Plan Discharge Patient Disposition: Xfer SNF Condition: Stable Prescriptions: New tamsulosin 0.4 mg Capsule 0.4 mg PO BEDTIME Qty: 30 0RF lisinopril 2.5 mg Tablet 10 mg PO QAM 30 Days Qty: 120 0RF cefadroxil 500 mg capsule 500 mg PO BID Qty: 10 0RF fluconazole 100 mg Tablet 200 mg PO DAILY Qty: 8 0RF nystatin [Nystop] 100,000 unit/gram Powder 1 applic topical BID Qty: 15 0RF Rx Instructions: Bilateral groin and under the pannus Continued cetirizine 10 mg tablet 10 mg PO BID PRN (Reason: allergy symptoms) Qty: 180 3RF furosemide 20 mg tablet See Rx Instructions .ROUTE .COMPLEX Qty: 180 1RF Dose Instruction: TAKE 2 TABLETS BY MOUTH EVERY DAY NEEDED FOR EDEMA Rx Instructions: TAKE 2 TABLETS BY MOUTH EVERY DAY NEEDED FOR EDEMA Xarelto 20 mg tablet See Rx Instructions .ROUTE .COMPLEX Qty: 90 3RF Dose Instruction: TAKE 1 TABLET BY MOUTH EVERY DAY IN THE EVENING Rx Instructions: TAKE 1 TABLET BY MOUTH EVERY DAY IN THE EVENING hydrocodone-acetaminophen 5-325 mg tablet 1 tab PO Q8H PRN (Reason: pain) 7 Days Qty: 20 0RF nitroglycerin 0.4 mg tablet, sublingual 0.4 mg sublingual Q5M PRN (Reason: chest pain) Qty: 25 2RF Rx Instructions: do not exceed 3 doses per episode cyanocobalamin (vitamin B-12) [Vitamin B-12] 1,000 mcg Tablet 1,000 mcg PO QPM calcium carbonate 500 mg calcium (1,250 mg) Tablet 500 mg PO QPM cholecalciferol (vitamin D3) [Vitamin D3] 50 mcg (2,000 unit) Tablet 50 mcg PO QPM olanzapine 10 mg tablet 10 mg PO DAILY escitalopram oxalate 10 mg tablet 10 mg PO DAILY acetaminophen [Tylenol Arthritis Pain] 650 mg Tablet Extended Release 650 mg PO Q12H Discontinued lisinopril 2.5 mg tablet 2.5 mg PO QAM Qty: 90 3RF Discharge Order = DC NOW: Discharge Order (Routine); Ordered 10/24/25 Ordered By: Marco Bender Referrals: Radha Clarke DO [Primary Care Provider, Family Practice] [facility], [Staff Physician] Discharge Diet: Usual diet Discharge Activity: Resume usual activity and Increase activity as tolerated Patient Instructions: Cellulitis (GEN), Opioid Safety, Patient Portal & [place] Instructions Discharge Attestations Time Spent in Discharge Care*: greater than 30 min Specific Discharge Activities: educating patient, educating and/or supporting family/caregiver, discussing with pcp/other providers, discussing with registered nurse hh case manager/social workers/dc planners, documenting/other paperwork and evaluating patient/reviewing data Status at Discharge: Cognitive status at discharge: mildly impaired cognition , Behavioral status at discharge: cooperative , Functional status at discharge: uses cane/walker , Overall status at discharge: patient is progressing back to baseline Quality Metrics Clinical Quality Measures [ No reported AMI, CVA or VTE this stay] Coding Level of Care Code 31790 Total time (in minutes) for Discharge: 50 Diagnoses Generalized weakness R53.1 Cellulitis of right lower extremity L03.115 Laterality: right Site of cellulitis: extremity Site of cellulitis of extremity: lower extremity Frequent falls R29.6 Chronic anticoagulation Z79.01 ELBA (obstructive sleep apnea) G47.33 Hx of deep venous thrombosis Z86.718 Primary hypertension I10 Hypertension type: primary hypertension Longstanding persistent atrial fibrillation I48.11 Atrial fibrillation type: longstanding persistent Coronary artery disease involving [place] coronary artery of [place] heart without angina pectoris I25.10 Associated angina: without angina Coronary Disease-Associated Artery/Lesion type: [place] artery [place] vs. transplanted heart: [place] heart Mild episode of recurrent major depressive disorder F33.0 Active/Remission status: currently active Depression Type: major depressive disorder Major depression episode severity: mild Major depression recurrence: recurrent Yeast infection involving the vagina and surrounding area B37.31 DNR (do not resuscitate) Z66 Chronic venous insufficiency of lower extremity I87.2 Candidal intertrigo B37.2
[2025-10-24 10:59] VITALS: BP 146/58; PULSE 58; O2SAT 95
[2025-10-24 11:15] VITALS: BP 136/71; PULSE 55; RESP 17; TEMP 36.7; O2SAT 96
--- NOTE | 2025-10-24 12:25 | PC.OT ---
OT TREATMENT HELD DUE TO SCHEDULED PATIENT D/C TODAY
== END 2025-10-24 11:45 | disposition skilled nursing facility (03) | DRG 603 ==
LOC: ER 12:19 → MEDSURG 13:01
PROVIDERS: Internal Medicine; Registered Nurse; Admitting Provider Family Medicine; Emergency Provider Emergency Medicine; PCP Family Medicine; Visit Provider Student in an Organized Health Care Education/Training Program
DX: L03.115 Cellulitis of right lower limb (principal); I48.11 Longstanding persistent atrial fibrillation; F33.0 Major depressive disorder, recurrent, mild; R29.6 Repeated falls; G47.33 Obstructive sleep apnea (adult) (pediatric); I50.9 Heart failure, unspecified; I11.0 Hypertensive heart disease with heart failure; I25.10 Atherosclerotic heart disease of native coronary artery without angina pectoris; B37.31 Acute candidiasis of vulva and vagina; Z66 Do not resuscitate; I87.2 Venous insufficiency (chronic) (peripheral); L30.4 Erythema intertrigo; J44.9 Chronic obstructive pulmonary disease, unspecified; R33.9 Retention of urine, unspecified; I27.20 Pulmonary hypertension, unspecified; I65.23 Occlusion and stenosis of bilateral carotid arteries; I35.0 Nonrheumatic aortic (valve) stenosis; Z79.01 Long term (current) use of anticoagulants; Z86.718 Personal history of other venous thrombosis and embolism
CPT/HCPCS: 36415; 51702; 51798; 70450; 71045; 72170; 80048; 80053; 81001; 83735; 84443; 85025; 85610; 87040; 93005; 97161; 97167; 97530; 99285; J0696; J2405; J7030; J9999